=== PATIENT | female | born 1985 | race Caucasian/White ===

== ENCOUNTER 2023-06-01 10:02 | Outpatient (OUT) | payer OTHER, SELFPAY ==
[2023-06-01 11:06] LABS: Basophils Absolute Auto 0.1 10^3/uL (0.0-0.1); Basophils Percent Auto 0.8 % (0.2-2.0); Eosinophils Absolute Auto 0.3 10^3/uL (0.0-0.7); Eosinophils Percent Auto 4.3 % (0.9-7.0); Hematocrit 40.1 % (36.0-48.0); Hemoglobin 13.5 g/dL (12.0-16.0); Immature Granulocytes Abs Auto 0.01 10^3/uL (0.00-0.03); Immature Granulocytes Pct Auto 0.2 % (0.0-0.5); Lymphocytes Absolute Auto 1.6 10^3/uL (1.2-3.8); Lymphocytes Percent Auto 27.3 % (20.5-60.0); Mean Corpuscular HGB Conc 33.7 g/dL (29.9-35.2); Mean Corpuscular Volume 89.1 fL (81.0-99.0); Mean Platelet Volume 10.5 fL (9.5-13.5); Monocytes Absolute Auto 0.5 10^3/uL (0.3-0.8); Monocytes Percent Auto 7.8 % (1.7-12.0); Neutrophils Absolute Auto 3.6 10^3/uL (1.4-6.5); Neutrophils Percent Auto 59.6 % (43.0-75.0); Platelet Count 208 10^3/uL (150-450); Red Cell Distribution Width 12.5 % (11.0-15.0)
[2023-06-01 11:26] LABS: Bilirubin Urine NEGATIVE (NEGATIVE); Blood Urine SMALL (NEGATIVE); Clarity Urine CLEAR (CLEAR); Color Urine YELLOW (YELLOW); Glucose Urine UA NEGATIVE (NEGATIVE); Ketones Urine NEGATIVE (NEGATIVE); Leukocyte Esterase Urine NEGATIVE (NEGATIVE); Nitrite Urine NEGATIVE (NEGATIVE); Protein Urine NEGATIVE (NEG/TRACE); Specific Gravity Urine >=1.030 (1.005-1.025); Urobilinogen Urine 0.2 EU/dL (0.2-1.0)
[2023-06-01 11:35] LABS: Bacteria Urine NONE SEEN #/HPF (NONE SEEN); Crystals Seen? None Seen #/HPF (None Seen); Mucus Urine TRACE (NONE SEEN); Squamous Epithelial Cell Urine FEW #/LPF (NONE/RARE); WBC Urine NONE SEEN #/HPF (NONE SEEN)
[2023-06-01 11:36] LABS: Cast Seen? NONE SEEN #/LPF (NONE SEEN); Urine Culture Indicated NO
[2023-06-01 11:56] LABS: Alanine Aminotransferase 43 U/L (14-59); Albumin Globulin Ratio 1.1; Albumin Level 3.7 g/dL (3.4-5.0); Alkaline Phosphatase 72 U/L (46-116); Anion Gap 13.3; Aspartate Amino Transferase 20 U/L (15-37); BUN Creatinine Ratio 11.6; Bilirubin Total 0.3 mg/dL (0.2-1.0); Calcium 8.9 mg/dL (8.5-10.1); Carbon Dioxide 25.6 mmol/L (21.0-32.0); Chloride 105 mmol/L (98-107); Chol HDL Ratio 4.4; Cholesterol 167 mg/dL (<=200); Estimated GFR (African America >60 (>=60); Estimated GFR (Non-African Ame >60 (>=60); Globulin 3.3 g/dL; Glucose 104 mg/dL (74-106); HDL Cholesterol 38 mg/dL (40-60); Potassium 3.9 mmol/L (3.5-5.1); Sodium 140 mmol/L (136-145); Triglycerides 127 mg/dL (<=150); VLDL CHOLESTEROL 25.4 mg/dL
[2023-06-01 14:58] LABS: Estimated Average Glucose 100 mg/dL; Glycohemoglobin A1C 5.1 % (4.5-6.2)
== END 2023-06-01 10:03 | disposition home or self-care (01) ==
PROVIDERS: PCP Nurse Practitioner; Visit Provider Nurse Practitioner
DX: E55.9 Vitamin D deficiency, unspecified (principal); E66.01 Morbid (severe) obesity due to excess calories; Z68.41 Body mass index [BMI] 40.0-44.9, adult; Z72.0 Tobacco use
CPT/HCPCS: 36415; 80053; 80061; 81001; 82306; 83036; 85025

== ENCOUNTER 2023-12-04 09:43 | Outpatient (OUT) | payer OTHER, SELFPAY ==
[2023-12-04 10:25] LABS: Basophils Percent Auto 0.7 % (0.2-2.0); Eosinophils Absolute Auto 0.2 10^3/uL (0.0-0.7); Hemoglobin 13.4 g/dL (12.0-16.0); Immature Granulocytes Abs Auto 0.02 10^3/uL (0.00-0.03); Immature Granulocytes Pct Auto 0.3 % (0.0-0.5); Lymphocytes Absolute Auto 1.6 10^3/uL (1.2-3.8); Lymphocytes Percent Auto 26.1 % (20.5-60.0); Mean Corpuscular HGB Conc 33.5 g/dL (29.9-35.2); Mean Corpuscular Hemoglobin 29.8 pg (26.7-34.0); Mean Corpuscular Volume 89.1 fL (81.0-99.0); Mean Platelet Volume 10.4 fL (9.5-13.5); Monocytes Absolute Auto 0.4 10^3/uL (0.3-0.8); Monocytes Percent Auto 6.9 % (1.7-12.0); Neutrophils Absolute Auto 3.8 10^3/uL (1.4-6.5); Platelet Count 182 10^3/uL (150-450); Red Blood Count 4.49 10^6/uL (4.20-5.40); Red Cell Distribution Width 12.2 % (11.0-15.0); White Blood Count 6.1 10^3/uL (4.0-11.0)
[2023-12-04 10:47] LABS: Estimated Average Glucose 103 mg/dL; Glycohemoglobin A1C 5.2 % (4.5-6.2)
[2023-12-04 10:57] LABS: Anion Gap 13.7; Carbon Dioxide 25.9 mmol/L (21.0-32.0); Chloride 104 mmol/L (98-107); Potassium 3.6 mmol/L (3.5-5.1); Sodium 140 mmol/L (136-145)
[2023-12-04 10:58] LABS: Alanine Aminotransferase 65 U/L (14-59); Albumin Globulin Ratio 1.1; Albumin Level 3.6 g/dL (3.4-5.0); Alkaline Phosphatase 84 U/L (46-116); Aspartate Amino Transferase 29 U/L (15-37); BUN Creatinine Ratio 13.6; Bilirubin Total 0.8 mg/dL (0.2-1.0); Calcium 8.8 mg/dL (8.5-10.1); Cholesterol 201 mg/dL (<=200); Estimated GFR (African America >60 (>=60); Estimated GFR (Non-African Ame >60 (>=60); Globulin 3.4 g/dL; Glucose 113 mg/dL (74-106); Triglycerides 182 mg/dL (<=150); VLDL CHOLESTEROL 36.4 mg/dL
[2023-12-04 10:59] LABS: Chol HDL Ratio 4.6; HDL Cholesterol 44 mg/dL (40-60); TSH W/ REFLEX FT4 2.214 uIU/mL (0.358-3.740)
[2023-12-04 11:11] LABS: Bilirubin Urine NEGATIVE (NEGATIVE); Blood Urine NEGATIVE (NEGATIVE); Clarity Urine CLEAR (CLEAR); Color Urine YELLOW (YELLOW); Glucose Urine UA NEGATIVE (NEGATIVE); Ketones Urine NEGATIVE (NEGATIVE); Leukocyte Esterase Urine NEGATIVE (NEGATIVE); Nitrite Urine NEGATIVE (NEGATIVE); Protein Urine NEGATIVE (NEG/TRACE); Urobilinogen Urine 0.2 EU/dL (0.2-1.0); pH Urine 6.5 (5.0-9.0)
[2023-12-04 11:17] LABS: Urine Microscopic Indicated NO
[2023-12-04 11:20] LABS: Creatinine Urine Random 227.62 mg/dL (20.00-300.00); Microalbum Creatinine Ratio Ur 24.6 mg/g (0.0-29.9); Microalbumin Urine Random 5.6 mg/dL (<=30.0)
== END 2023-12-04 09:44 | disposition home or self-care (01) ==
LOC: LAB 09:45
PROVIDERS: PCP Nurse Practitioner; Visit Provider Nurse Practitioner
DX: K21.9 Gastro-esophageal reflux disease without esophagitis (principal); I10 Essential (primary) hypertension; F50.81 Binge eating disorder; E66.01 Morbid (severe) obesity due to excess calories; E55.9 Vitamin D deficiency, unspecified
CPT/HCPCS: 36415; 80053; 80061; 81003; 82043; 82306; 82570; 83036; 84443; 85025

== ENCOUNTER 2023-12-24 09:16 | Outpatient (OUT) | payer OTHER, SELFPAY ==
--- NOTE | 2023-12-24 09:00 | NM_ITS ---
Patient Name: BOO LIU MR#: [id number] : 1985 Exam Date: 12/24/2023 Ordering Doctor: ALICIA Hernandez CNP RADIOLOGY REPORT PROCEDURE: NM KOSTA PERF SPECT REST STR COMPARISON: None. INDICATIONS: CHEST PAIN TECHNIQUE: Exam Description: Stress/Rest two day protocol gated SPECT Rest Imagin.9 mCi Tc-99m Cardiolite IV on 12/24/2023 Stress Imaging 26.1 mCi Tc-99m Cardiolite IV on 12/30/2023 Exercise Protocol: Deuce Heart Rate (bpm): Rest: 83 Max: 164 PMHR: 89 Blood Pressure: Rest: 138/84 Max: 178/84 Exercise Time: Minutes: 5 Seconds: 02 Stage Reached: Stage: 2 Mets 7.0 Symptoms: Rest and peak stress ECG findings were pending and the exercise portion of the study was pending per attending physician Dr. Howe . For more details please see separate cardiac stress test report. FINDINGS: QUALITY OF STUDY: Good. PERFUSION DEFECT: None. LOCATION: N/A SIZE: N/A. SEVERITY: N/A. TYPE: N/A. WALL MOTION: Normal. LV SIZE: Normal. 68 mL. TID / TCD: None; 0.6 LVEF: Normal. Calculated EF 64%. SUMMARY: Myocardial perfusion imaging study is NORMAL. CONCLUSION: 1. No reversible ischemia 2. Pending exercise test Dictated by: Estrada Azar MD on 12/30/2023 at 13:33 Approved by: Estrada Azar MD on 12/30/2023 at 13:34
--- OUTSIDE RECORDS SUMMARY | 2023-12-24 09:35 | XMS_ITS | CCD ---
Author Name Unknown Address [address] [place] [address] Organization [facility] Care Team Providers Care Batch Mixer Name Role Phone Sam Collier Unavailable Unavailable NATE HERRON Attending Unavai lable [facility] Unavai lable ANTE HERRON Attending Unavai lable [facility] Unavai lable NATE HERRON Admitting Unavai lable NATE HERRON Attending Savannahvavanessa HERRON [facility] Primary Care LETICIA Aly Attending Unavaila ble GOPAL, [facility] Primary Care LETICIA Aly Admitting Unavaila LETICIA Auguste Attending Unavaila ble GOPAL, [facility] Primary Care Kota Cronin Primary Care Provider [phone] Kota Weaver Primary Care Provider [phone] [place]TUN[place]O URIOSTEGUI Referring Unavailable [facility] Care Unavailable MAYA BENDER Referring [facility] Unavailable HELM, ANDREA Referring [facility] Care Unavailable HELM, ANDREA Referring Unavailable [facility] Care Unavailable FORTUNATO URIOSTEGUI Admitting Unavailable FORTUNATO URIOSTEGUI Attending Unavailable [facility] Care Unavailable Annette Strickland Unavailable Linda Baires Unavailable Liliana Morfin Unavailable ALICIA ALAN Admitting Unavailable ALICIA ALAN LA[place] Attending Unavailable AICHHOLZ, CEREAL MAKER [place] Primary Care Unavailable AICHHOLZ, CEREAL MAKER [place] Consulting Unavailable AICHHOLZ, CEREAL MAKER [place] Admitting Unavailable AICHHOLZ, CEREAL MAKER [place] Attending Unavailable AICHHOLZ, CEREAL MAKER [place] Primary Care Unavailable AICHHOLZ, CEREAL MAKER [place] Consulting Unavailable AICHHOLZ, CEREAL MAKER [place] Admitting Unavailable AICHHOLZ, CEREAL MAKER [place] Attending Unavailable AICHHOLZ, CEREAL MAKER [place] Primary Care Unavailable AICHHOLZ, CEREAL MAKER [place] Consulting Unavailable AICHHOLZ, CEREAL MAKER [place] Primary Care Unavailable NATALI, TAI Admitting Unavailable NATALI, TAI Attending Unavailable NATALI, TAI Consulting Unavailable AICHHOLZ, CEREAL MAKER [place] Admitting Unavailable AICHHOLZ, CEREAL MAKER [place] Attending Unavailable AICHHOLZ, CEREAL MAKER [place] Primary Care Unavailable DR GOOD HENSON V Consulting Unavailable AICHHOLZ, CEREAL MAKER [place] Consulting Unavailable AICHHOLZ, CEREAL MAKER [place] Admitting Unavailable AICHHOLZ, CEREAL MAKER [place] Attending Unavailable AICHHOLZ, CEREAL MAKER [place] Primary Care Unavailable AICHHOLZ, CEREAL MAKER [place] Consulting Unavailable AICHHOLZ, CEREAL MAKER [place] Admitting Unavailable AICHHOLZ, CEREAL MAKER [place] Attending Unavailable AICHHOLZ, CEREAL MAKER [place] Primary Care Unavailable AICHHOLZ, CEREAL MAKER [place] Consulting Unavailable AICHHOLZ, CEREAL MAKER [place] Admitting Unavailable AICHHOLZ, CEREAL MAKER [place] Attending Unavailable AICHHOLZ, CEREAL MAKER [place] Primary Care Unavailable AICHHOLZ, CEREAL MAKER [place] Consulting Unavailable AICHHOLZ, CEREAL MAKER [place] Admitting Unavailable AICHHOLZ, CEREAL MAKER [place] Attending Unavailable AICHHOLZ, CEREAL MAKER [place] Primary Care Unavailable AICHHOLZ, CEREAL MAKER [place] Consulting Unavailable AICHHOLZ, LAKEISHA Attending Unavailable AICHHOLZ, LAKEISHA Attending Unavailable Unavailable Unavailable Unavailable Allergies Allergy Classification Reported Allergen(s) Allergy Type Date of Onset Reaction(s) Facility (10 sources) Amoxicillin Drug Allergy 4 Rash, Nausea And Vomiting [place], [place] (10 sources) Latex Propensity to adverse reactions to drug 0 Rash [place], [place] (1 source) Amoxicillin Drug Allergy [facility] (1 source) Latex Drug allergy (disorder) [facility] Medications Current Medications Medication Drug Class(es) Dates Sig (Normalized) Sig (Original) ARIPiprazole 5 mg oral tablet (1 source) Atypical Antipsychotic take 1 tablet by mouth every twenty-four hours Abilify 5 MG 1 tablet Orally Once a day Active calcium chloride 0.0014 meq/ml / potassium chloride 0.004 meq/ml / sodium chloride 0.103 meq/ml / sodium lactate 0.028 meq/ml injectable solution (1 source) Start: 09-28-2020 lactated ringers infusion cefuroxime 500 mg oral tablet (1 source) Cephalosporin Antibacterial Start: 09-29-2021 take 1 tablet by mouth every twelve hours Cefuroxime Axetil 500 MG 1 tablet Orally Twice a day for 10 day(s) Sep, Active cephalexin 500 mg oral capsule (1 source) Cephalosporin Antibacterial Start: 12-04-2022 take 1 capsule by mouth every eight hours Cephalexin 500 MG 1 capsule Orally three times a day for 10 day(s) Nov, Active cyclobenzaprine hydrochloride 10 mg oral tablet (1 source) Muscle Relaxant Start: 03-16-2022 take 1 tablet by mouth every eight hours Cyclobenzaprine HCl 10 MG 1 tablet as needed Orally Three times a day for 10 days Mar, Active DULoxetine 60 mg delayed release oral capsule (10 sources) Serotonin and Norepinephrine Reuptake Inhibitor take 1 capsule by mouth every twelve hours DULoxetine HCl 60 MG 1 Tablet orally bid Active take 1 capsule by mouth once teagan ly DULoxetine (CYMBALTA) 60 MG extended release capsule Take 60 mg by mouth daily 0 Active famotidine 20 mg oral tablet (5 sources) Histamine-2 Receptor Antagonist Start: 01-24-2020 take 1 tablet by mouth twice daily famotidine (PEPCID) 20 MG tablet take 1 tablet by mouth twice a day 0 01/24/2020 Active hydroCHLOROthiazide 25 mg oral tablet (10 sources) Thiazide Diuretic Start: 03-13-2020 take 1 tablet by mouth once daily hydroCHLOROthiazide (HYDRODIURIL) 25 MG tablet take 1 tablet by mouth once daily 0 03/13/2020 Active Lisdexamfetamine (5 sources) Central Nervous System Stimulant Vyvanse Active Losartan (2 sources) Angiotensin 2 Receptor Sourav Losartan Potassium Active methylPREDNISolone 4 mg oral tablet (1 source) Corticosteroid Start: 03-16-2022 methylPREDNISolone 4 MG as directed Orally Once a day for 6 days Mar, Active pantoprazole 40 mg delayed release oral tablet (2 sources) Proton Pump Inhibitor Start: 09-28-2020 take 1 tablet by mouth once daily before breakfast pantoprazole (PROTONIX) 40 MG tablet Take 1 tablet by mouth every morning (before breakfast) 90 tablet 1 09/28/2020 Active varenicline 0.5 mg oral tablet (2 sources) Partial Cholinergic Nicotinic Agonist take 1 tablet by mouth twice daily varenicline (CHANTIX) 0.5 MG tablet Take 0.5 mg by mouth 2 times daily 0 Active Completed/Discontinued Medications Medication Drug Class(es) Dates Sig (Normalized) Sig (Original) hydrocortisone 10 mg/ml / neomycin 3.5 mg/ml / polymyxin b 45499 unt/ml otic suspension (4 sources) Aminoglycoside Antibacterial, Polymyxin-class Antibacterial, Corticosteroid Start: 08-06-2022 Neomycin-Polymyx in-HC 3.5-69369-0 3 drops both ears Three times a day for 7 days Jul, Not-Taking Start: 09-15-2021 Neomycin-Polym yxin-HC 3.5-93862-0 4 drops into affected ear Otic Three times a day for 7 day(s) Sep, Not-Taking Ketorolac (3 sources) Nonsteroidal Anti-inflammatory Drug, Cyclooxygenase Inhibitor Start: 02-10-2018 Toradol per 15 mg February, 30 mg naproxen 500 mg oral tablet (1 source) Nonsteroidal Anti-inflammatory Drug Start: 08-07-2020 End: 09-25-2020 take 1 tablet by mouth twice daily for headache naproxen (NAPROSYN) 500 MG tablet take 1 tablet by mouth TWICE A DAY IF NEEDED FOR HEADACHE, NO MOR... (REFER TO PRESCRIPTION NOTES). 0 08/07/2020 09/25/2020 Discontinued (Therapy completed) Potassium (2 sources) Potassium Not-Taking Potassium Active Triamcinolone (3 sources) Corticosteroid Start: 02-10-2018 KENALOG - 10 m g February, 40 mg Problems Active Problems Problem Classification Problem Date Documented Date Episodic/Chronic Allergic reactions (2 sources) Latex allergy status; Translations: [Allergy status to penicillin] Onset: 9 Episodic Anxiety disorders (9 sources) Mixed anxiety and depressive disorder; Translations: [Depression with anxiety] Onset: 0 04-17-2020 Chronic Coronary atherosclerosis and other heart disease (2 sources) Other forms of angina pectoris; Translations: [Old myocardial infarction] Onset: 9 Chronic Disorders of lipid metabolism (1 source) Hyperlipidemia, unspecified Onset: 9 Chronic Esophageal disorders (7 sources) Gastroesophageal reflux disease without esophagitis; Translations: [Gastroesophageal reflux disease without esophagitis] Onset: 0 04-17-2020 Chronic Essential hypertension (13 sources) Essential (primary) hypertension; Translations: [Essential hypertension] Onset: 9 04-17-2020 Chronic Fluid and electrolyte disorders (4 sources) Hypokalemia; Translations: [HYPOKALEMIA] Onset: 3 Episodic Genitourinary symptoms and ill-defined conditions (2 sources) Female stress incontinence; Translations: [Incontinence, stress - Female] Chronic Nonspecific chest pain (3 sources) Chest pain, unspecified; Translations: [Chest pain, unspecified] Onset: 9 Episodic Nutritional deficiencies (1 source) Vitamin D deficiency, unspecified Onset: 8 Chronic Osteoarthritis (7 sources) Arthritis; Translations: [Arthritis] Onset: 0 04-17-2020 Chronic Other aftercare (1 source) penitentiary (current) use of aspirin Onset: 9 Episodic Other ear and sense organ disorders (1 source) Unspecified acute noninfective otitis externa, bilateral Episodic Other non-traumatic joint disorders (3 sources) Pain in right knee; Translations: [Right knee pain, unspecified chronicity] Episodic Other nutritional; endocrine; and metabolic disorders (1 source) Body mass index (BMI) 40.0-44.9, adult Onset: 9 Chronic Other nutritional; endocrine; and metabolic disorders (6 sources) Body mass index 40+ - severely obese; Translations: [Body mass index (BMI) 45.0-49.9, adult] Chronic Other nutritional; endocrine; and metabolic disorders (7 sources) Morbid obesity; Translations: [Obesity, Class III, BMI 40-49.9 (morbid obesity)] Onset: 0 04-17-2020 Chronic Other nutritional; endocrine; and metabolic disorders (2 sources) Obesity; Translations: [Obesity] Chronic Other screening for suspected conditions (not mental disorders or infectious disease) (3 sources) Abnormal electrocardiogram [ECG] [EKG]; Translations: [Abnormal electrocardiogram [ECG] [EKG]] Onset: 9 Episodic Other upper respiratory infections (2 sources) Acute pharyngitis, unspecified; Translations: [Streptococcal pharyngitis] Episodic Residual codes; unclassified (8 sources) Obstructive sleep apnea syndrome; Translations: [QUITA (obstructive sleep apnea)] Onset: 0 04-17-2020 Chronic Substance-related disorders (2 sources) Nicotine dependence, unspecified, uncomplicated; Translations: [Nicotine dependence, cigarettes, uncomplicated] Onset: 9 Chronic Thyroid disorders (5 sources) Nontoxic goiter, unspecified; Translations: [NONTOXIC GOITER UNSPECIFIED] Onset: 2 Chronic Unclassified (1 source) Family hx of ischem heart dis and oth dis of the circ sys Onset: 9 Unclassified (3 sources) Encntr for general adult medical exam w/o abnormal findings; Translations: [Encntr for general adult medical exam w/o abnormal findings] Onset: 8 Unclassified (1 source) Morbid (severe) obesity due to excess calories Onset: 9 Unclassified (2 sources) Patient encounter status; Translations: [Preop testing] Unclassified (2 sources) History of clinical finding in subject; Translations: [History of nicotine use] Onset: 0 09-19-2020 Past or Other Problems Problem Classification Problem Date Documented Da te Episodic/Chronic Cardiac dysrhythmias (4 sources) Palpitations; Translations: [PALPITATIONS] Onset: 07-18-2022 Episodic Diabetes mellitus without complication (1 source) Other abnormal glucose; Translations: [OTHER ABNORMAL GLUCOSE] Onset: 04-11-2022 Episodic Immunizations and screening for infectious disease (1 source) Contact with and (suspected) exposure to other viral communicable diseases Onset: 09-29-2021 Resolved: 09-29-2021 Episodic Other connective tissue disease (7 sources) Fibromyalgia; Translations: [Fibromyalgia] Onset: 04-18-2020 04-18-2020 Episodic Other connective tissue disease (1 source) Fibromyalgia; Translations: [FIBROMYALGIA] Onset: 03-17-2022 Episodic Other ear and sense organ disorders (1 source) Unspecified acute noninfective otitis externa, right ear Onset: 09-15-2021 Resolved: 09-15-2021 Episodic Other non-traumatic joint disorders (2 sources) Joint pain; Translations: [Joint pain, other specified sites] Episodic Other non-traumatic joint disorders (4 sources) Pain in right shoulder; Translations: [PAIN IN RIGHT SHOULDER] Onset: 03-15-2022 Resolved: 03-16-2022 Episodic Otitis media and related conditions (1 source) Otitis media, unspecified, right ear Onset: 09-29-2021 Resolved: 09-29-2021 Episodic Residual codes; unclassified (2 sources) Tobacco user; Translations: [Tobacco use disorder, current] Episodic Residual codes; unclassified (6 sources) Nicotine user; Translations: [Current nicotine use] Onset: 04-18-2020 Resolved: 09-19-2020 04-18-2020 Spondylosis; intervertebral disc disorders; other back problems (14 sources) Cervicalgia; Translations: [Sciatica] Onset: 05-03-2018 Episodic Results Test Name Value Interpretation Reference Range Facility XR FOOT RT MIN 3 VIEWSon XR FOOT RT MIN 3 VIEWS EXAMINATION: XR FOOT RT MIN 3 VIEWS, , 01/22/2023 11:16 AM EDT INDICATION: Pain in right foot HISTORY: Ordering Provider Reason for Exam: Technologist Note: Additional: COMPARISON: None. TECHNIQUE: Right foot x-ray: 3 view(s). FINDINGS: There has been an apparent previous hallux valgus procedure with partial resection of the distal medial first metatarsal. Other bony structures are intact. An accessory navicular is noted. There is narrowing at the first MP joint. Other articulations are satisfactorily maintained. A small plantar calcaneal enthesophyte is noted. Forefoot soft tissue swelling. IMPRESSION: Postoperative changes at the distal first metatarsal. Early degenerative changes at the first MP joint. Small plantar calcaneal enthesophyte. Electronically authenticated by: Tiff PHILLIPS Date: 2023-01-24 01:10 Normal [facility] US THYROIDon 12-18-2022 US THYROID EXAMINATION: US THYROID HISTORY: Simple goiter COMPARISON: No relevant comparison available. TECHNIQUE: Sonographic images of the thyroid gland were obtained. FINDINGS: The right thyroid lobe is normal in size, contour and homogeneous echotexture measuring 4.7 x 1.8 x 2.1 cm. No focal mass The thyroid isthmus measures 5 mm. No focal nodule. The left thyroid lobe is normal in size, contour and homogeneous echotexture measuring 4.0 x 1.5 to 1.2 cm. No focal mass IMPRESSION: Normal exam Electronically authenticated by: GOOD HENSON Date: 2022-12-18 15:15 Normal [facility] Quick Strepon 12-04-2022 S. pyogenes Org specific cx Ql (Throat) Positive [facility] [employer] Other Quick Strep [facility] [employer] Other PROF CHEM 8 (BAS METB)on Anion gap [Moles/Vol] 13.1 mmol/L Normal [facility] Comment on above: Performed By: #### B MP #### [facility] [address] [place] [address] Dr. Claudia Myrick Calcium [Mass/Vol] 9.3 mg/dL Normal 8.5-10.1 [facility] Comment on above: Performed By: #### B MP #### [facility] [address] [place] [address] Dr. Claudia Myrick Chloride [Moles/Vol] 102 mmol/L Normal 98-107 [facility] Comment on above: Performed By: #### B MP #### [facility] [address] [place] [address] Dr. Claudia Myrick CO2 [Moles/Vol] 25.4 mmol/L Normal 21.0-32.0 [facility] Comment on above: Performed By: #### B MP #### [facility] [address] [place] [address] Dr. Claudia Myrick Creatinine [Mass/Vol] 0.75 mg/dL Normal 0.55-1.02 [facility] Comment on above: Performed By: #### B MP #### [facility] [address] [place] [address] Dr. Claudia Myrick EGFR-AF SRI LANKAN >60 Normal >=60 [facility] Comment on above: Performed By: #### B MP #### [facility] [address] [place] [address] Dr. Claudia Myrick EGFR-NON AF SRI LANKAN >60 Normal >=60 [facility] Comment on above: Performed By: #### B MP #### [facility] [address] [address] [address] Claudia Myrick Glucose [Mass/Vol] 90 mg/dL Normal 74-106 [facility] Comment on above: Performed By: #### B MP #### [facility] [address] [address] [address] Claudia Myrick Potassium [Moles/Vol] 4.5 mmol/L Normal 3.5-5.1 [facility] Comment on above: Performed By: #### B MP #### [facility] [address] [address] [address] Claudia Myrick Sodium [Moles/Vol] 136 mmol/L Normal 136-145 [facility] Comment on above: Performed By: #### B MP #### [facility] [address] [address] [address] Claudia Myrick Urea nitrogen [Mass/Vol] 15.0 mg/dL Normal 7.0-18.0 [facility] Comment on above: Performed By: #### B MP #### [facility] [address] [address] [address] Claudia Myrick Urea nitrogen/Creatinine [Mass ratio] 20.0 mg/mg Normal [facility] Comment on above: Performed By: #### B MP #### [facility] [address] [address] [address] Claudia Myrick PROF CHEM 8 (BAS METB)on Anion gap [Moles/Vol] 14.6 mmol/L Normal [facility] Comment on above: Performed By: #### B MP #### [facility] [id number] Claudia Myrick Calcium [Mass/Vol] 8.7 mg/dL Normal 8.5-10.1 [facility] Comment on above: Performed By: #### B MP #### [facility] [address] [address] [address] Claudia Myrick Chloride [Moles/Vol] 104 mmol/L Normal 98-107 [facility] Comment on above: Performed By: #### B MP #### [facility] [address] [address] [address] Claudia Myrick CO2 [Moles/Vol] 23.7 mmol/L Normal 21.0-32.0 [facility] Comment on above: Performed By: #### B MP #### [facility] [address] [address] [address] Claudia Myrick Creatinine [Mass/Vol] 1.07 mg/dL Critically high 0.55-1.02 [facility] Comment on above: Performed By: #### B MP #### [facility] [address] [address] [address] Claudia Myrick EGFR-AF SRI LANKAN >60 Normal >=60 [facility] Comment on above: Performed By: #### B MP #### [facility] [address] [address] [address] Claudia Myrick EGFR-NON AF SRI LANKAN 58 mL/min/1.73m2 Critically low >=60 [facility] Comment on above: Performed By: #### B MP #### [facility] [address] [address] [address] Claudia Myrick Glucose [Mass/Vol] 129 mg/dL Critically high 74-106 [facility] Comment on above: Performed By: #### B MP #### [facility] [address] [address] [address] Claudia Myrick Potassium [Moles/Vol] 3.2 mmol/L Critically low 3.5-5.1 [facility] Comment on above: Performed By: #### B MP #### [facility] [address] [address] [address] Claudia Myrick Sodium [Moles/Vol] 140 mmol/L Normal 136-145 [facility] Comment on above: Performed By: #### B MP #### [facility] [address] [address] [address] Claudia Myrick Urea nitrogen [Mass/Vol] 9.0 mg/dL Normal 7.0-18.0 [facility] Comment on above: Performed By: #### B MP #### [facility] [address] [address] [address] Claudia Myrick Urea nitrogen/Creatinine [Mass ratio] 8.4 mg/mg Normal [facility] Comment on above: Performed By: #### B MP #### [facility] [address] [address] [address] Claudia Myrick PROF CHEM 8 (BAS METB)on Anion gap [Moles/Vol] 11.1 mmol/L Normal [facility] Comment on above: Performed By: #### B MP #### [facility] [address] [address] [address] Claudia Myrick Calcium [Mass/Vol] 9.5 mg/dL Normal 8.5-10.1 [facility] Comment on above: Performed By: #### B MP #### [facility] [address] [address] [address] Claudia Myrick Chloride [Moles/Vol] 104 mmol/L Normal 98-107 [facility] Comment on above: Performed By: #### B MP #### [facility] [address] [address] [address] Claudia Myrick CO2 [Moles/Vol] 29.9 mmol/L Normal 21.0-32.0 [facility] Comment on above: Performed By: #### B MP #### [facility] [address] [address] [address] Claudia Myrick Creatinine [Mass/Vol] 1.05 mg/dL Critically high 0.55-1.02 [facility] Comment on above: Performed By: #### B MP #### [facility] [address] [address] [address] Claudia Myrick EGFR-AF SRI LANKAN >60 Normal >=60 [facility] Comment on above: Performed By: #### B MP #### [facility] [address] [address] [address] Claudia Myrick EGFR-NON AF SRI LANKAN =60 Normal >=60 [facility] Comment on above: Performed By: #### B MP #### [facility] [address] [address] [address] Claudia Myrick Glucose [Mass/Vol] 122 mg/dL Critically high 74-106 [facility] Comment on above: Performed By: #### B MP #### [facility] [address] [address] [address] Claudia Myrick Potassium [Moles/Vol] 3.0 mmol/L Critically low 3.5-5.1 [facility] Comment on above: Performed By: #### B MP #### [facility] [address] [address] [address] Claudia Myrick Sodium [Moles/Vol] 143 mmol/L Normal 136-145 [facility] Comment on above: Performed By: #### B MP #### [facility] [address] [place] [address] Dr. Claudia Myrick Urea nitrogen [Mass/Vol] 11.0 mg/dL Normal 7.0-18.0 [facility] Comment on above: Performed By: #### B MP #### [facility] [address] [address] [address] Claudia Myrick Urea nitrogen/Creatinine [Mass ratio] 10.5 mg/mg Normal [facility] Comment on above: Performed By: #### B MP #### [facility] [address] [place] [address] Dr. Claudia Myrick POTASSIUMon 04-23-2022 Potassium [Moles/Vol] 3.2 mmol/L Critically low 3.5-5.1 [facility] Comment on above: Performed By: #### K #### [facility] [address] [place] [address] Dr. Claudia Myrick THYROGLOBULIN ABon Thyroglobulin Antibody <1.0 Normal 0.0-0.9 [facility] Comment on above: Result Comment: Thyr oglobulin Antibody measured by [employer] Methodology Performed By: #### T HYGAB #### [facility] [address] [address] [address] Claudia Myrick THYROID PEROXIDASE ABon 06-2 Thyroid Peroxidase (TPO) Ab <8 Normal 0-34 [facility] Comment on above: Performed By: #### T POAB #### [facility] [address] [place] [address] Dr. Claudia Myrick CBC AUTO DIFFon 04-08-2022 BASO # 0.1 103/ul Normal 0.0-0.1 [facility] Comment on above: Performed By: #### C BC #### [facility] [address] [place] [address] Dr. Claudia Myrick Basophils/100 WBC (Bld) 0.6 % Normal 0.2-2.0 [facility] Comment on above: Performed By: #### C BC #### [facility] [address] [place] [address] Dr. Claudia Myrick EO # 0.3 103/ul Normal 0.0-0.7 [facility] Comment on above: Performed By: #### C BC #### [facility] [address] [place] [address] Dr. Claudia Myrick Eosinophils/100 WBC (Bld) 4.2 % Normal 0.9-7.0 [facility] Comment on above: Performed By: #### C BC #### [facility] [address] [place] [address] Dr. Claudia Myrick Erythrocyte distribution width (RBC) [Ratio] 12.8 % Normal 11.0-15.0 [facility] Comment on above: Performed By: #### C BC #### [facility] [address] [place] [address] Dr. Claudia Myrick Hematocrit (Bld) [Volume fraction] 42.0 % Normal 36.0-48.0 [facility] Comment on above: Performed By: #### C BC #### [facility] [address] [place] [address] Dr. Claudia Myrick Hemoglobin (Bld) [Mass/Vol] 14.1 g/dL Normal 12.0-16.0 [facility] Comment on above: Performed By: #### C BC #### [facility] [address] [place] [address] Dr. Claudia Myrick IG # 0.05 10e3/ul Critically high 0.00-0.03 [facility] Comment on above: Performed By: #### C BC #### [facility] [address] [place] [address] Dr. Claudia Myrick IG % 0.6 % Critically high 0.0-0.5 [facility] Comment on above: Performed By: #### C BC #### [facility] [address] [place] [address] Dr. Claudia Myrick LYMPH # 1.7 103/ul Normal 1.2-3.8 [facility] Comment on above: Performed By: #### C BC #### [facility] [address] [place] [address] Dr. Claudia Myrick Lymphocytes/100 WBC (Bld) 21.1 % Normal 20.5-60.0 [facility] Comment on above: Performed By: #### C BC #### [facility] [address] [place] [address] Dr. Claudia Myrick MANUAL DIFF REQ NO Normal [facility] Comment on above: Performed By: #### C BC #### [facility] [address] [place] [address] Dr. Claudia Myrick MCH (RBC) [Entitic mass] 30.6 pg Normal 26.7-34.0 [facility] Comment on above: Performed By: #### C BC #### [facility] [address] [place] [address] Dr. Claudia Myrick MCHC (RBC) [Mass/Vol] 33.6 g/dL Normal 29.9-35.2 [facility] Comment on above: Performed By: #### C BC #### [facility] [address] [place] [address] Dr. Claudia Myrick MCV (RBC) [Entitic vol] 91.1 fL Normal 81.0-99.0 [facility] Comment on above: Performed By: #### C BC #### [facility] [address] [place] [address] Dr. Claudia Myrick MONO # 0.6 103/ul Normal 0.3-0.8 [facility] Comment on above: Performed By: #### C BC #### [facility] [address] [place] [address] Dr. Claudia Myrick Monocytes/100 WBC (Bld) 7.1 % Normal 1.7-12.0 [facility] Comment on above: Performed By: #### C BC #### [facility] [address] [place] [address] Dr. Claudia Myrick NEUT # 5.4 103/ul Normal 1.4-6.5 [facility] Comment on above: Performed By: #### C BC #### [facility] [address] [place] [address] Dr. Claudia Myrick Neutrophils/100 WBC (Bld) 66.4 % Normal 43.0-75.0 [facility] Comment on above: Performed By: #### C BC #### [facility] [address] [place] [address] Dr. Claudia Myrick Platelet mean volume (Bld) [Entitic vol] 11.1 fL Normal 9.5-13.5 [facility] Comment on above: Performed By: #### C BC #### [facility] [address] [place] [address] Dr. Claudia Myrick PLT 213 103/ul Normal 150-450 [facility] Comment on above: Performed By: #### C BC #### [facility] [address] [place] [address] Dr. Claudia Myrick RBC 4.61 106/ul Normal 4.20-5.40 [facility] Comment on above: Performed By: #### C BC #### [facility] [address] [place] [address] Dr. Claudia Myrick WBC 8.2 103/ul Normal 4.0-11.0 [facility] Comment on above: Performed By: #### C BC #### [facility] [address] [place] [address] Dr. Claudia Myrick FREE T3on 04-08-2022 FREE T3 3.34 pg/mlL Normal 2.18-3.98 [facility] Comment on above: Performed By: #### L IPID, FT3, TSH, CMP ####[facility] [address] [place] [id number]. Claudai Myrick FREE T4on 04-08-2022 Free T4 [Mass/Vol] 0.96 ng/dL Normal 0.76-1.46 [facility] Comment on above: Performed By: #### F T4 ####[facility] [address] [place] [id number] Myrick GLYCOHEMOGLOBIN A1Con 2021 ADA RECOMMENDATION SEE BELOW Normal [facility] Comment on above: Result Comment: ADA RECOMMENDED LIMIT 4.0 - 6.0 ADA THERAPEUTIC TARGET < 7.0 ACTION SUGGESTED > 7.0 Performed By: #### A 1C #### [facility] [address] [address] [address] Claudia Myrick Glucose [Mass/Vol] 108 mg/dL Normal [facility] Comment on above: Performed By: #### A 1C #### [facility] [address] [address] [address] Claudia Myrick HbA1c (Bld) [Mass fraction] 5.4 % Normal 4.5-6.2 [facility] Comment on above: Performed By: #### A 1C #### [facility] [address] [address] [address] Claudia Myrick LIPID PROFILEon 04-08-2022 CHOL-HDL RATIO NORM SEE BELOW Normal [facility] Comment on above: Result Comment: 3.3 - 4.4 LOW RISK 4.4 - 7.1 AVERAGE RISK 7.1 - 11.0 MODERATE RISK >11.0 HIGH RISK Performed By: #### L IPID, FT3, TSH, CMP ####[facility] [address] [place] [id number]. Claudia Myrick Cholesterol [Mass/Vol] 213 mg/dL Critically high <=200 [facility] Comment on above: Performed By: #### L IPID, FT3, TSH, CMP ####[facility] [address] [place] [id number]. Yilan Myrick Cholesterol in HDL [Mass/Vol] 34 mg/dL Critically low 40-60 [facility] Comment on above: Performed By: #### L IPID, FT3, TSH, CMP ####[facility] [address] [place] [address]Dr. Sandiobey Myrick Cholesterol in LDL [Mass/Vol] 135.6 mg/dL Normal [facility] Comment on above: Performed By: #### L IPID, FT3, TSH, CMP ####[facility] [address] [place] [address]Dr. Claudia Myrick Cholesterol.total/C holesterol in HDL [Mass ratio] 6.3 {ratio} Normal [facility] Comment on above: Performed By: #### L IPID, FT3, TSH, CMP ####[facility] [address] [place] [address]Dr. Claudia Myrick HDL NORMAL > or = 60 mg/dl - LO W CARDIOVASCULAR RISK <40 mg/dl - HIGH CARDIOVASCULAR RISK Normal [facility] Comment on above: Performed By: #### L IPID, FT3, TSH, CMP ####[facility] [address] [place] [address]Dr. Claudia Myrick LDL CALC NORMAL SEE BELOW Normal [facility] Comment on above: Result Comment: <100 mg/dl OPTIMAL 100 - 129 mg/dl NEAR OR ABOVE OPTIMAL 130 - 159 mg/dl BORDERLINE HIGH 160 - 189 mg/dl HIGH >190 mg/dl VERY HIGH Performed By: #### L IPID, FT3, TSH, CMP ####[facility] [address] [place] [address]Dr. Claudia Myrick Triglyceride [Mass/Vol] 217 mg/dL Critically high <=150 [facility] Comment on above: Performed By: #### L IPID, FT3, TSH, CMP ####[facility] [address] [place] [address]Dr. Claudia Myrick VLDL CALC 43.4 mg/dL Normal [facility] Comment on above: Performed By: #### L IPID, FT3, TSH, CMP ####[facility] [address] [place] [address]Dr. Claudia Myrick PROF 14(COMP METB)on 022 Albumin [Mass/Vol] 3.6 g/dL Normal 3.4-5.0 [facility] Comment on above: Performed By: #### L IPID, FT3, TSH, CMP ####[facility] [address] [place] [address]Dr. Claudia Myrick Albumin/Globulin [Mass ratio] 1.1 {ratio} Normal [facility] Comment on above: Performed By: #### L IPID, FT3, TSH, CMP ####[facility] [address] [place] [address]Dr. Claudia Myrick ALP [Catalytic activity/Vol] 75 U/L Normal 46-116 [facility] Comment on above: Performed By: #### L IPID, FT3, TSH, CMP ####[facility] [address] [place], [place] [address]Dr. Claudia Myrick ALT [Catalytic activity/Vol] 60 U/L Critically high 14-59 [facility] Comment on above: Performed By: #### L IPID, FT3, TSH, CMP ####[facility] [address] [place], [place] [address]Dr. Claudia Myrick Anion gap [Moles/Vol] 12.1 mmol/L Normal [facility] Comment on above: Performed By: #### L IPID, FT3, TSH, CMP ####[facility] [address] [place] [address]Dr. Claudia Myrick AST [Catalytic activity/Vol] 29 U/L Normal 15-37 [facility] Comment on above: Performed By: #### L IPID, FT3, TSH, CMP ####[facility] [address] [place], [place] [address]Dr. Claudia Myrick Bilirubin [Mass/Vol] 0.6 mg/dL Normal 0.2-1.0 [facility] Comment on above: Performed By: #### L IPID, FT3, TSH, CMP ####[facility] [address] [place], [place] [address]Dr. Claudia Myrick Calcium [Mass/Vol] 8.9 mg/dL Normal 8.5-10.1 [facility] Comment on above: Performed By: #### L IPID, FT3, TSH, CMP ####[facility] [address] [place] [address]Dr. Claudia Myrick Chloride [Moles/Vol] 103 mmol/L Normal 98-107 [facility] Comment on above: Performed By: #### L IPID, FT3, TSH, CMP ####[facility] [address] [place] [address]Dr. Claudia Myrick CO2 [Moles/Vol] 27.8 mmol/L Normal 21.0-32.0 [facility] Comment on above: Performed By: #### L IPID, FT3, TSH, CMP ####[facility] [address] [place], [place] [address]Dr. Claudia Myrick Creatinine [Mass/Vol] 0.86 mg/dL Normal 0.55-1.02 [facility] Comment on above: Performed By: #### L IPID, FT3, TSH, CMP ####[facility] [address] [place], [place] [address]Dr. Claudia Myrick EGFR-AF SRI LANKAN >60 Normal >=60 [facility] Comment on above: Performed By: #### L IPID, FT3, TSH, CMP ####[facility] [address] [place], [place] [address]Dr. Claudia Myrick EGFR-NON AF SRI LANKAN >60 Normal >=60 [facility] Comment on above: Performed By: #### L IPID, FT3, TSH, CMP ####[facility] [address] [place], [place] [address]Dr. Claudia Myrick Globulin (S) [Mass/Vol] 3.2 g/dL Normal [facility] Comment on above: Performed By: #### L IPID, FT3, TSH, CMP ####[facility] [address] [place] [address]Dr. Claudia Myrick Glucose [Mass/Vol] 114 mg/dL Critically high 74-106 [facility] Comment on above: Performed By: #### L IPID, FT3, TSH, CMP ####[facility] [address] [place] [address]Dr. Claudia Myrick Potassium [Moles/Vol] 2.8 mmol/L Critically low 3.5-5.1 [facility] Comment on above: Result Comment: TEST REPEATED CRITICAL VALUE VERIFIED Performed By: #### L IPID, FT3, TSH, CMP ####[facility] [address] [place] [address]Dr. Claudia Myrick Protein [Mass/Vol] 6.8 g/dL Normal 6.4-8.2 [facility] Comment on above: Performed By: #### L IPID, FT3, TSH, CMP ####[facility] [address] [place] [address]Dr. Claudia Myrick Sodium [Moles/Vol] 138 mmol/L Normal 136-145 [facility] Comment on above: Performed By: #### L IPID, FT3, TSH, CMP ####[facility] [address] [place] [address]Dr. Claudia Myrick Urea nitrogen [Mass/Vol] 11.0 mg/dL Normal 7.0-18.0 [facility] Comment on above: Performed By: #### L IPID, FT3, TSH, CMP ####[facility] [address] [place] [address]Dr. Claudia Myrick Urea nitrogen/Creatinine [Mass ratio] 12.8 mg/mg Normal [facility] Comment on above: Performed By: #### L IPID, FT3, TSH, CMP ####[facility] [address] [place] [address]DrRobert Myrick TSHon 04-08-2022 TSH 1.561 uIU/mL Normal 0.358-3.740 [facility] Comment on above: Performed By: #### L IPID, FT3, TSH, CMP #### [facility] [address] [address] [address] Claudia Myrick UA RANDOM W/MICROSCOPICon BACTERIA TRACE Abnormal NONE SEEN [facility] Comment on above: Performed By: #### U AMIC ####[facility] [address] [place] [address]Dr. Claudia Myrick Bilirubin Ql (U) Negative Normal NEGATIVE [facility] Comment on above: Performed By: #### U AMIC ####[facility] [address] [place], [place] [address]Dr. Sandiobey Myrick CAST NONE SEEN Normal NONE SEEN [facility] Comment on above: Performed By: #### U AMIC ####[facility] [address] [place], [place] [address]Dr. Claudia Myrick Clarity (U) CLEAR Normal CLEAR [facility] Comment on above: Performed By: #### U AMIC ####[facility] [address] [place], [place] [address]Dr. Claudia Myrick Color (U) YELLOW Normal YELLOW [facility] Comment on above: Performed By: #### U AMIC ####[facility] [address] [place], [place] [address]Dr. Sandiobey Ramez Crystals LM Nom (Urine sed) NONE SEEN Normal NONE SEEN [facility] Comment on above: Performed By: #### U AMIC ####[facility] [address] [place], [place] [address]Dr. Claudia Myrick Epithelial cells LM Ql (Urine sed) FEW Abnormal NONE SEEN /RARE [facility] Comment on above: Performed By: #### U AMIC ####[facility] [address] [place], [place] [address]Dr. Claudia Myrick Glucose Ql (U) Negative Normal NEGATIVE [facility] Comment on above: Performed By: #### U AMIC ####[facility] [address] [place], [place] [address]Dr. Claudia Myrick Hemoglobin Ql (U) Negative Normal NEGATIVE [facility] Comment on above: Performed By: #### U AMIC ####[facility] [address] [place], [place] [address]Dr. Claudia Myrick Ketones Ql (U) Negative Normal NEGATIVE [facility] Comment on above: Performed By: #### U AMIC ####[facility] [address] [place] [address]Dr. Claudia Myrick LEUKOCYTES Negative Normal NEGATIVE [facility] Comment on above: Performed By: #### U AMIC ####[facility] [address] [place] [address]Dr. Claudia Myrick MUCOUS NONE SEEN Normal NONE SEEN [facility] Comment on above: Performed By: #### U AMIC ####[facility] [address] [place] [address]Dr. Claudia Myrick Nitrite Ql (U) Negative Normal NEGATIVE [facility] Comment on above: Performed By: #### U AMIC ####[facility] [address] [place], [place] [address]Dr. Claudia Myrick pH (U) 7.0 [pH] Normal 5-9 [facility] Comment on above: Performed By: #### U AMIC ####[facility] [address] [place], [place] [address]Dr. Claudia Ramez RBC NONE SEEN Abnormal 0-2 [facility] Comment on above: Performed By: #### U AMIC ####[facility] [address] [place], [place] [address]Dr. Sandiobey Myrick SPEC GRAVITY 1.015 Normal 1.005-<=1.025 [facility] Comment on above: Performed By: #### U AMIC ####[facility] [address] [place], [place] [address]Dr. Claudia Myrick UA PROTEIN Negative Normal NEGATIVE/ TRACE [facility] Comment on above: Performed By: #### U AMIC ####[facility] [address] [place], [place] [address]Dr. Claudia Myrick Urobilinogen Qn (U) 0.2 {Brendan'U}/dL Normal 0.2 - 1. 0 [facility] Comment on above: Performed By: #### U AMIC ####[facility] [address] [place], [place] [address]Dr. Claudia Myrick WBC NONE SEEN Normal NONE SEEN [facility] Comment on above: Performed By: #### U [facility] ####[facility] [address] [place] [id number] Myrick XR shoulder RT min 2V*on XR shoulder RT min 2V* [address] [address] XRay Report Signed Patient: Boo Bo MR#: [id number] : 1985 Acct:[id number] Age/Sex: 36 / F ADM Date: 03/16/22 Loc: XDUCLY Room: Type: [facility] Attending Dr: Annette MACKENZIE Ordering Provider: ANNETTE STRICKLAND Date of Service: 03/16/22 XR/XR shoulder RT min 2V*: Acute pain of right shoulder Copies to: ANNETTE STRICKLAND RIGHT SHOULDER - 3 views CLINICAL HISTORY: Right shoulder pain since pushing off a couch and hearing a pop last week. Pain radiates down the arm. COMPARISON: None AP, Y and Grashey views were obtained. There is no evidence of fracture or dislocation. Minor degenerative change is present at the acromioclavicular joint and greater tuberosity. There are no significant soft tissue abnormalities. XR/XR shoulder RT min 2V* IMPRESSION: NO ACUTE BONY FINDINGS. Impression dictated by: Delia Kuamr M.D.03/16/2022 1:37 PM Dictation Location: [place] [address] Transcribed By: HARRIS 03/16/22 1334 Dictated By: Delia Kumar MD 03/16/22 1334 Signed By: 03/16/22 1337 Normal [facility] XR shoulder RT min 2V* [facility] [employer] Other XR shoulder RT min 2V* [facility] [employer] Other XR shoulder RT min 2V* [address] [place] [address] [employer] Other XR shoulder RT min 2V* [place] [address] [facility] [employer] Other XR shoulder RT min 2V* XRay Report [employer] Other XR shoulder RT min 2V* Signed [employer] Other XR shoulder RT min 2V* Patient: Boo Bo MR#: [id number] [employer] Other XR shoulder RT min 2V* : 1985 Acct:[id number] [employer] Other XR shoulder RT min 2V* Age/Sex: 36 / F ADM Date: 03/16/22 [employer] Other XR shoulder RT min 2V* Loc: XDUCLY Room: Type: [facility] [employer] Other XR shoulder RT min 2V* [facility]ending Dr: [facility] Strickland [facility] [employer] Other XR shoulder RT min 2V* Ordering Provider: ANNETTE STRICKLAND [employer] Other XR shoulder RT min 2V* Date of Service: 03/16/22 [employer] Other XR shoulder RT min 2V* XR/XR shoulder RT min 2V*: Acute pain of right shoulder [employer] Other XR shoulder RT min 2V* Copies to: ANNETTE STRICKLAND [facility] [employer] Other XR shoulder RT min 2V* RIGHT SHOULDER - 3 views [employer] Other XR shoulder RT min 2V* CLINICAL HISTORY: Right shoulder pain since pushing off a couch and hearing a pop last week. Pain [employer] Other XR shoulder RT min 2V* radiates down the arm. [employer] Other XR shoulder RT min 2V* COMPARISON: None [employer] Other XR shoulder RT min 2V* AP, Y and Grashey views were obtained. There is no evidence of fracture or dislocation. Minor [employer] Other XR shoulder RT min 2V* degenerative change is present at the acromioclavicular joint and greater tuberosity. There are no [employer] Other XR shoulder RT min 2V* significant soft tissue abnormalities. [employer] Other XR shoulder RT min 2V* XR/XR shoulder RT min 2V* [employer] Other XR shoulder RT min 2V* IMPRESSION: [employer] Other XR shoulder RT min 2V* NO ACUTE BONY FINDINGS. [employer] Other XR shoulder RT min 2V* Impression dictated by: Delia Kumar M.D.03/16/2022 1:37 PM [employer] Other XR shoulder RT min 2V* Dictation Location: [place] [address] [employer] Other XR shoulder RT min 2V* Transcribed By: HARRIS 03/16/22 [facility] [employer] Other XR shoulder RT min 2V* Dictated By: Delia Kumar MD 03/16/22 [facility] [employer] Other XR shoulder RT min 2V* Signed By: [employer] Other XR shoulder RT min 2V* 03/16/22 [facility] [employer] Other COVID Quick Testingon 2020 Result Negative [employer] Other Quick Fluon 09-29-2021 FLUAV Ab CF (S) [Titer] Negative [employer] Other FLUBV Ab CF (S) [Titer] Negative [employer] Other Physician Referralon 021 Physician Referral [phone] [id number] Normal [facility] Surgical Pathologyon 020 Surgical Pathology (NOTE) -- Diagnosis -- 1. STOMACH, BIOPSY: - NORMAL GASTRIC MUCOSA. 2. STOMACH, ULCER, BIOPSY: - NORMAL GASTRIC MUCOSA. Pan Rodney M.D. Electronically Signed Out 10/01/2020 Clinical Information Pre-op Diagnosis: GERD, OBESITY Operative Findings: GASTRIC FOR H. PYLORI; GASTRIC ULCER Operation Performed: EGD BIOPSY Source of Specimen 1: GASTRIC BIOPSY FOR H PYLORI (A) 2: GASTRIC ULCER (B) Gross Description 1. BOO BO, GASTRIC BIOPSY FOR H. PYLORI One peña-white tissue fragment, 0.2 x 0.2 x 0.1 cm. Entirely 1cs. 2. BOO BO, GASTRIC ULCER One red-white tissue fragment, 0.3 x 0.2 x 0.1 cm. Entirely 1cs. jg tm Microscopic Description 1, 2. Sections of gastric mucosa show lamina propria without evidence of significant inflammation. There is no evidence of ulcer, intestinal metaplasia or dysplasia. There is no evidence of organisms suspicious for Helicobacter with the routine RANDAL stain. SURGICAL PATHOLOGY CONSULTATION Patient Name: BOO BO [facility] Rec: [id number] Path Number: [id number] [facility] ANATOMIC PATHOLOGY [address] [place] [phone] Normal [facility] Comment on above: Performed By: #### P PPVS #### [facility] [address] [place] [address] [id number] Senior Program Analyst: Bobby Flanagan MD COVID-19on 09-25-2020 SARS-CoV-2 [place], [place] SARS-CoV-2 Not Detected Not Detected [place], [place] Comment on above: The specimen is NEGATIVE for SARS-CoV-2, the novel coronavirus associated with COVID-19. A negative result does not rule out COVID-19. Terrie SARS-CoV-2 for use on the [employer] 6800/8800 Systems is a real-time RT-PCR test intended for the qualitative detection of nucleic acids from SARS-CoV-2 in clinician-collected nasal, nasopharyngeal, and oropharyngeal swab specimens from individuals who meet COVID-19 clinical and/or epidemiological criteria. [facility] SARS-CoV-2 is for use only under Emergency Use Authorization (EUA) in laboratories certified under Clinical Laboratory Improvement Amendments of 1988 (CLIA), 42 U.S.C. 263a, that meet requirements to perform high or moderate complexity tests. An individual without symptoms of COVID-19 and who is not shedding SARS-CoV-2 virus would expect to have a negative (not detected) result in this assay. Fact sheet for Healthcare Providers: https://www.fda.gov/media/829572/download Fact sheet for Patients: https://www.fda.gov/media/859302/download METHODOLOGY: RT-PCR SARS-CoV-2, Rapid [place], [place] Source .NASOPHARYNGEAL SWAB [place], [place] [id number] 09-25-2020 SARS-CoV-2 Not Detected Normal [facility] Comment on above: Result Comment: The specimen is NEGATIVE for SARS-CoV-2, the novel coronavirus associated with COVID-19. A negative result does not rule out COVID-19. Terrie SARS-CoV-2 for use on the [employer] 6800/8800 Systems is a real-time RT-PCR test intended for the qualitative detection of nucleic acids from SARS-CoV-2 in clinician-collected nasal, nasopharyngeal, and oropharyngeal swab specimens from individuals who meet COVID-19 clinical and/or epidemiological criteria. Terrie SARS-CoV-2 is for use only under Emergency Use Authorization (EUA) in laboratories certified under Clinical Laboratory Improvement Amendments of 1988 (CLIA), 42 U.S.C. ?263a, that meet requirements to perform high or moderate complexity tests. An individual without symptoms of COVID-19 and who is not shedding SARS-CoV-2 virus would expect to have a negative (not detected) result in this assay. Fact sheet for Healthcare Providers: https://www.fda.gov/media/794515/download Fact sheet for Patients: https://www.fda.gov/media/085997/download METHODOLOGY: RT-PCR Performed By: #### C OVID #### [address] [address] Senior Program Analyst: Bobby Flanagan MD [facility] [address] [place] [address] [place]. [place], [place] [id number] Senior Program Analyst: Good Hernandez MD SARS-CoV-2 [facility] Comment on above: Performed By: #### C OVID #### [address] [address] Senior Program Analyst: Bobby Flanagan MD [facility] [address] [place] [address] [place] [address] Senior Program Analyst: Good Hernandez MD SARS-CoV-2,Rapid [facility] Comment on above: Performed By: #### C OVID #### [address] [address] Senior Program Analyst: Bobby Flanagan MD [facility] [address] [place] [address] [place], [place] [id number] Senior Program Analyst: Good Hernandez MD [id number] 09-24-2020 SARS-CoV-2 Source .NASOPHARYNGEAL SWAB [facility] Comment on above: Performed By: #### C OVID #### [address] [address] Senior Program Analyst: Bobby Flanagan MD [facility] [address] [place] [address] [place], [place] [id number] Senior Program Analyst: Good Hernandez MD Nicotineon 07-12-2020 [id number] <2 [facility] Comment on above: Performed By: #### A NICOT #### [facility] [address] [place] [address] Senior Program Analyst: Jeffy Benz MD Cotinine <2 [facility] Comment on above: Performed By: #### A NICOT #### [facility] [address] [place] [address] Senior Program Analyst: Jeffy Benz MD Nicotine <2 Normal [facility] Comment on above: Result Comment: (NOT E) Consistent with abstinence from nicotine-containing products for at least 1 week. INTERPRETIVE INFORMATION: Nicotine and Metabolites, Serum or Plasma, Quantitative Methodology: Quantitative Liquid Chromatography-Tandem Mass Spectrometry Positive cutoff: 2 ng/mL For medical purposes only; not valid for forensic use. This test is designed to evaluate recent use of nicotine-containing products. Passive and active exposure cannot be discriminated definitively, although a cutoff of 10 ng/mL cotinine is frequently used for surgery qualification purposes. For smoking cessation programs or compliance testing, the absence of expected drug(s) and/or drug metabolite(s) may indicate non-compliance, inappropriate timing of specimen collection relative to drug administration, poor drug absorption, or limitations of testing. This test cannot distinguish between use of tobacco and purified nicotine products. The concentration value must be greater than or equal to the cutoff to be reported as positive. Test developed and characteristics determined by [facility]. See Compliance Statement B: [employer]/CS Performed By: [facility] [address] [place] [address] Trucking Supervisor: Ashley Price MD Performed By: #### A NICOT #### [facility] [address] [place] [address] Senior Program Analyst: Jeffy Benz MD [id number] 07-12-2020 SARS-CoV-2 Not Detected Normal Not Detected [facility] Comment on above: Result Comment: (NOT E) This nucleic acid amplification test was developed and its performance characteristics determined by [facility]. Nucleic acid amplification tests include PCR and TMA. This test has not been FDA cleared or approved. This test has been authorized by FDA under an Emergency Use Authorization (EUA). This test is only authorized for the duration of time the declaration that circumstances exist justifying the authorization of the emergency use of in vitro diagnostic tests for detection of SARS-CoV-2 virus and/or diagnosis of COVID-19 infection under section 564(b)(1) of the Act, 21 U.S.C. 360bbb-3(b) (1), unless the authorization is terminated or revoked sooner. When diagnostic testing is negative, the possibility of a false negative result should be considered in the context of a patient's recent exposures and the presence of clinical signs and symptoms consistent with COVID-19. An individual without symptoms of COVID- 19 and who is not shedding SARS-CoV-2 virus would expect to have a negative (not detected) result in this assay. Performed At: [facility] [place] [id number] Latricia Barrera MD Ph:[phone] Performed By: #### D AU #### [facility] [address] [place] [address] Senior Program Analyst: Omari Fisher MD COVID-19 Ambulatoryon 2019 SARS-CoV-2, ELVIN Not Detected Not Detected [place], [place] Comment on above: (NOTE) This nucleic acid amplification test was developed and its performance characteristics determined by [facility]. Nucleic acid amplification tests include PCR and TMA. This test has not been FDA cleared or approved. This test has been authorized by FDA under an Emergency Use Authorization (EUA). This test is only authorized for the duration of time the declaration that circumstances exist justifying the authorization of the emergency use of in vitro diagnostic tests for detection of SARS-CoV-2 virus and/or diagnosis of COVID-19 infection under section 564(b)(1) of the Act, 21 U.S.C. 360bbb-3(b) (1), unless the authorization is terminated or revoked sooner. When diagnostic testing is negative, the possibility of a false negative result should be considered in the context of a patient's recent exposures and the presence of clinical signs and symptoms consistent with COVID-19. An individual without symptoms of COVID- 19 and who is not shedding SARS-CoV-2 virus would expect to have a negative (not detected) result in this assay. Performed At: [facility] [address] [facility] [place] [id number] Latricia Barrera MD Ph:[phone] Drug Scr, Abuse, Uron 2019 Amphetamine(s),Ur Negative Normal [facility] Comment on above: Performed By: #### D AU #### [facility] [address] [place] [address] Senior Program Analyst: Omari Fisher MD Barbiturate(s),Ur Negative Normal [facility] Comment on above: Performed By: #### D AU #### [facility] [address] [place] [address] Senior Program Analyst: Omari Fisher MD Base excess Calc (Bld) [Moles/Vol] Negative Normal [facility] Comment on above: Performed By: #### D AU #### [facility] [address] [place] [address] Senior Program Analyst: Omari Fisher MD Benzodiazepine(s) Negative Normal [facility] Comment on above: Performed By: #### D AU #### [facility] [address] [place], [facility] Senior Program Analyst: Omari Fisher MD Buprenorphrine, Ur Negative Normal [facility] Comment on above: Performed By: #### D AU #### [facility] [address] [place], [place] [address] Senior Program Analyst: Omari Fisher MD Cannabinoid(s),Ur Negative Normal [facility] Comment on above: Performed By: #### D AU #### [facility] [address] [place], [place] [address] Senior Program Analyst: Omari Fisher MD Methadone Ql (U) Negative Normal [facility] Comment on above: Performed By: #### D AU #### [facility] [address] [place] [address] Senior Program Analyst: Omari Fisher MD Methamphetamine, Ur Negative Normal [facility] Comment on above: Performed By: #### D AU #### [facility] [address] [place], [place] [id number] Senior Program Analyst: Omari Fisher MD Opiate(s), Ur Negative Normal [facility] Comment on above: Performed By: #### D AU #### [facility] [address] [place] [address] Senior Program Analyst: Omari Fisher MD Oxycodone, Urine Negative Normal [facility] Comment on above: Performed By: #### D AU #### [facility] [address] [place] [address] Senior Program Analyst: Omari Fisher MD Phencyclidine, Ur Negative Normal [facility] Comment on above: Performed By: #### D AU #### [facility] [address] [place] [address] Senior Program Analyst: Omari Fisher MD Propoxyphene,Urine Negative Normal NEG [facility] Comment on above: Performed By: #### D AU #### [facility] [address] [place], [place] [address] Senior Program Analyst: Omari Fisher MD Tricyclic antidepressants Screen Ql (U) Negative [facility] Comment on above: Result Comment: Drug screen results are to be used for medical purposes only. All positive results are unconfirmed. Testing for employment or legal uses should be sent to a reference laboratory for confirmation. Performed By: #### D AU #### [facility] [address] [place] [address] Dr. [place], [place] [id number] Senior Program Analyst: Omari Fisher MD Interpretive Info NOT REPORTED Normal [facility] Comment on above: Performed By: #### D AU #### [facility] [address] [place], [place] 1156383 Senior Program Analyst: Omari Fisher MD MDMA, Urine NOT REPORTED Normal [facility] Comment on above: Performed By: #### D AU #### [facility] [address] [place], [place] [id number] Senior Program Analyst: Omari Fisher MD Urine Drug Screenon 09-28-20 20 Amphetamine Screen, Ur Negative NEGATIVE [facility] [place] [place] Barbiturate Screen, Ur Negative NEGATIVE [facility] [place] Benzodiazepine Screen, Urine Negative NEGATIVE [facility] [place] Buprenorphine Urine Negative NEGATIVE [facility] [place] Cannabinoid Scrn, Ur Negative NEGATIVE [facility] [place] Cocaine Metabolite, Urine Negative NEGATIVE [facility] [place] MDMA, Urine NOT REPORTED NEGATIVE [facility] [place] [place] Methadone Screen, Urine Negative NEGATIVE [facility] [place] Methamphetamine, Urine Negative NEGATIVE [facility] [place] Opiates, Urine Negative NEGATIVE [facility] [place] Oxycodone Screen, Ur Negative NEGATIVE [facility] [place] Phencyclidine, Urine Negative NEGATIVE [facility] [place] Propoxyphene, Urine Negative NEGATIVE [facility] [place] Test Information NOT REPORTED [facility] [place] Tricyclic Antidepressants, Urine Negative NEGATIVE [facility] [place] Comment on above: Drug screen results are to be used for medical purposes only. All positive results are unconfirmed. Testing for employment or legal uses should be sent to a reference laboratory for confirmation. Nicotineon 04-21-2020 [id number] 95 ng/mL [facility] Comment on above: Performed By: #### D AU #### [facility] [address] [place] [place] [address] Senior Program Analyst: Omari Fisher MD Cotinine 190 ng/mL [facility] Comment on above: Performed By: #### D AU #### [facility] [address] [place] [address] Senior Program Analyst: Omari Fisher MD Nicotine 15 ng/mL [facility] Comment on above: Result Comment: (NOT E) Consistent with use of a nicotine-containing product within 48 hours of specimen collection. Nicotine is metabolized to cotinine and [id number]. INTERPRETIVE INFORMATION: Nicotine and Metabolites, Serum or Plasma, Quantitative Methodology: Quantitative Liquid Chromatography-Tandem Mass Spectrometry Positive cutoff: 2 ng/mL For medical purposes only; not valid for forensic use. This test is designed to evaluate recent use of nicotine-containing products. Passive and active exposure cannot be discriminated definitively, although a cutoff of 10 ng/mL cotinine is frequently used for surgery qualification purposes. For smoking cessation programs or compliance testing, the absence of expected drug(s) and/or drug metabolite(s) may indicate non-compliance, inappropriate timing of specimen collection relative to drug administration, poor drug absorption, or limitations of testing. This test cannot distinguish between use of tobacco and purified nicotine products. The concentration value must be greater than or equal to the cutoff to be reported as positive. Test developed and characteristics determined by [facility]. See Compliance Statement B: [email or web address] Performed By: [facility] [address] [place] [address] Trucking Supervisor: Jeffy Benz MD, MS Performed By: #### D AU #### [address] [place] [address] Senior Program Analyst: Omari Fisher MD Vitamin B1on 04-21-2020 Vitamin B1 135 nmol/L Normal 70-180 [facility] Comment on above: Result Comment: (NOT E) INTERPRETIVE INFORMATION: Vitamin B1, Whole Blood This assay measures the concentration of thiamine diphosphate (TDP), the primary active form of vitamin B1. Approximately 90 percent of vitamin B1 present in whole blood is TDP. Thiamine and thiamine monophosphate, which comprise the remaining 10 percent, are not measured. Test developed and characteristics determined by [facility]. See Compliance Statement B: [employer] Performed By: [facility] [address] [place] [address] Trucking Supervisor: Jeffy Benz MD, MS Performed By: #### D AU #### [address] [place] [address] Senior Program Analyst: Omari Fisher MD Vitamin Aon 04-20-[address] [facility] Comment on above: Result Comment: (NOT E) Test developed and characteristics determined by [facility]. See Compliance Statement B: [email or web address] Performed By: [facility] [address] [place] [address] Trucking Supervisor: Jeffy Benz MD, MS Performed By: #### D AU #### [address] [place] [address] Senior Program Analyst: Omari Fisher MD Retinol (Vitamin A) 0.65 mg/L Normal 0.30-1.20 [facility] Comment on above: Performed By: #### D AU #### [facility] [address] [place] [address] Senior Program Analyst: Omari Fisher MD Retinyl Palmitate 0.03 mg/L Normal 0.00-0.10 [facility] Comment on above: Performed By: #### D AU #### [facility] [address] [place] [address] Senior Program Analyst: Omari Fisher MD Zinc, Serumon 04-20-2020 Zinc, Serum 94.2 ug/dL Normal 60.0-120.0 [facility] Comment on above: Result Comment: (NOT E) INTERPRETIVE INFORMATION: Zinc, Serum or Plasma Elevated results may be due to skin or collection-related contamination, including the use of a noncertified metal-free collection/transport tube. If contamination concerns exist due to elevated levels of serum/plasma zinc, confirmation with a second specimen collected in a certified metal-free tube is recommended. Circulating zinc concentrations are dependent on albumin status and are depressed with malnutrition. Zinc may also be lowered with infection, inflammation, stress, oral contraceptives, and . Zinc may be elevated with zinc supplementation or fasting. Elevated zinc concentrations may interfere with copper absorption. Test developed and characteristics determined by [facility]. See Compliance Statement B: [employer] Performed By: [facility] [address] [place] [id number] Trucking Supervisor: Jeffy Benz MD, MS Performed By: #### D AU #### [facility] [address] [place] [address] Senior Program Analyst: Omari Fisher MD B12/Folate Panelon 0 Cobalamin (Vitamin B12) [Mass/Vol] 324 pg/mL Normal 232-1245 [facility] Comment on above: Performed By: #### B 12FOL #### [facility] [address] [place] [address] [id number] Senior Program Analyst: Bobby Flanagan MD Folic Acid 14.3 ng/mL Normal >4.8 [facility] Comment on above: Performed By: #### B 12FOL #### [facility] [employer] [facility] [place] [address] Senior Program Analyst: Bobby Flanagan MD CBC Auto Differentialon 07-0 Basophils (Bld) [#/Vol] 0.04 10*3/uL [place], [place] Basophils/100 WBC (Bld) 1 % 0 - 2 % [place] Differential Type NOT REPORTED [place] Eosinophils (Bld) [#/Vol] 0.37 10*3/uL [place] Eosinophils/100 WBC (Bld) 5 % High 1 - 4 % [place] Erythrocyte distribution width (RBC) [Ratio] 12.6 % 11.8 - 14.4 % [place] Hematocrit (Bld) [Volume fraction] 42.8 % 36.3 - 47.1 % [place] Hemoglobin (Bld) [Mass/Vol] 14.2 g/dL 11.9 - 15.1 g/dL [place] Immature granulocytes (Bld) [#/Vol] 0 % 0 [place] Immature granulocytes (Bld) [#/Vol] 10*3/uL [place] Interpretation and review of laboratory results Abnormal [place] Lymphocytes (Bld) [#/Vol] 1.80 10*3/uL [place] Lymphocytes/100 WBC (Bld) 25 % 24 - 43 % [place] MCH (RBC) [Entitic mass] 30.7 pg 25.2 - 33.5 pg [place] MCHC (RBC) [Mass/Vol] 33.2 g/dL 28.4 - 34.8 g/dL [place] MCV (RBC) [Entitic vol] 92.4 fL 82.6 - 102.9 fL [place] Monocytes (Bld) [#/Vol] 0.61 10*3/uL [place] Monocytes/100 WBC (Bld) 8 % 3 - 12 % [place] Platelet mean volume (Bld) [Entitic vol] 11.2 fL 8.1 - 13.5 fL [place] Platelets (Bld) [#/Vol] 201 10*3/uL [place] Platelets (Bld) [#/Vol] NOT REPORTED [place] RBC (Bld) [#/Vol] 4.63 10*6/uL 3.95 - 5.1 1 m/uL [place] RBC morphology finding Nom (Bld) NOT REPORTED [place] Segmented neutrophils/100 WBC (Bld) 61 % 36 - 65 % [place] Segs Absolute 4.41 [place], [place] WBC (Bld) [#/Vol] 0.0 10*3/uL 0.0 per 10 0 WBC [place] WBC (Bld) [#/Vol] 7.3 10*3/uL [place] WBC Morphology NOT REPORTED [place], [place] CBC with Diffon 04-18-2020 Abs. Basophil 0.04 k/uL Normal 0.00-0.20 [facility] Comment on above: Performed By: #### F YURIY, ABDULKADIR, VD25, PTHNCA #### [facility] [address] [place], [place] [id number] Senior Program Analyst: Bobby Flanagan MD #### RENA LAWSON AVITB1, NATY #### [facility] [address] [place] [address] Senior Program Analyst: Jeffy eBnz MD #### CP, GLYHGB, CDP, MG, LIPR #### [facility] [address] [place] [address] Senior Program Analyst: Omari Fisher MD Abs.Imm.Granulocyte <0.03 Normal 0.00-0.30 [facility] Comment on above: Performed By: #### F YURIY, FEBC, VD25, PTHNCA #### [address] [address] Senior Program Analyst: Bobby Flanagan MD #### RENA LAWSON AVITB1, NATY #### [facility] [address] [place], [place] [id number] Senior Program Analyst: Jeffy Benz MD #### CP, GLYHGB, CDP, MG, LIPR #### [address] [place] [phone] Senior Program Analyst: Omari Fisher MD Abs.Neutrophil (Seg) 4.41 k/uL Normal 1.50-8.10 [facility] Comment on above: Performed By: #### ABDULKADIR BENSON, VD25, PTHNCA #### [address] [phone] Senior Program Analyst: Bobby Flanagan MD #### RENA LAWSON AVITB1, NTAY #### [facility] [address] [place] [address] [phone] Senior Program Analyst: Jeffy Benz MD #### HANNAH, SUYAPA, CDP, MG, LIPR #### [address] [place] [phone] Senior Program Analyst: Omari Fisher MD Basophils/100 WBC (Bld) 1 % Normal 0-2 [facility] Comment on above: Performed By: #### ABDULKADIR BENSON, VD25, PTHNCA #### [address] [phone] Senior Program Analyst: Bobby Flanagan MD #### RENA LAWSON AVITB1, NATY #### [facility] [address] [place], [place] [phone] Senior Program Analyst: Jeffy Benz MD #### CP, GLYHGB, CDP, MG, LIPR #### [address] [place] [phone] Senior Program Analyst: Omari Fisher MD Eosinophils (Bld) [#/Vol] 0.37 10*3/uL Normal 0.00-0.44 [facility] Comment on above: Performed By: #### F YURIY, FEBC, VD25, PTHNCA #### [address] [phone] Senior Program Analyst: Bobby Flanagan MD #### LULU, RENA, ASHLITB1, AVITAS #### [facility] [address] [place], [place] [phone] Senior Program Analyst: Jeffy Benz MD #### CP, GLYHGB, CDP, MG, LIPR #### [address] [place] [phone] Senior Program Analyst: Omari Fisher MD Eosinophils/100 WBC (Bld) 5 % High 1-4 [facility] Comment on above: Performed By: #### F YURIY, FEBC, VD25, PTHNCA #### [address] [phone] Senior Program Analyst: Bobby Flanagan MD #### LULU, RENA, ASHLITB1, AVISHANES #### [facility] [address] [place] [address] Senior Program Analyst: Jeffy Benz MD #### CP, GLYHGB, CDP, MG, LIPR #### [address] [place] [phone] Senior Program Analyst: Omari Fisher MD Erythrocyte distribution width (RBC) [Ratio] 12.6 % Normal 11.8-14.4 [facility] Comment on above: Performed By: #### F YURIY, FEBC, VD25, PTHNCA #### [address] [phone] Senior Program Analyst: Bobby Flanagan MD #### AZN, ANICOT, AVITB1, AVITAS #### [facility] [address] [place] [address] Senior Program Analyst: Jeffy Benz MD #### CP, GLYHGB, CDP, MG, LIPR #### [address] [place] [address] Senior Program Analyst: Omari Fisher MD Hematocrit (Bld) [Volume fraction] 42.8 % Normal 36.3-47.1 [facility] Comment on above: Performed By: #### F YURIY, FEBC, VD25, PTHNCA #### [address] [phone] Senior Program Analyst: Bobby Flanagan MD #### AZN, ANICOT, AVITB1, AVITAS #### [facility] [address] [place] [phone] Senior Program Analyst: Jeffy Benz MD #### CP, GLYHGB, CDP, MG, LIPR #### [address] [place] [address] Senior Program Analyst: Omari Fisher MD Hemoglobin (Bld) [Mass/Vol] 14.2 g/dL Normal 11.9-15.1 [facility] Comment on above: Performed By: #### F YURIY, FEBC, VD25, PTHNCA #### [address] [phone] Senior Program Analyst: Bobby Flanagan MD #### AZN, ANICOT, AVITB1, AVITAS #### [facility] [address] [place], [place] [phone] Senior Program Analyst: Jeffy Benz MD #### CP, GLYHGB, CDP, MG, LIPR #### [address] [place] [address] Senior Program Analyst: Omari Fisher MD Immature granulocytes (Bld) [#/Vol] 0 % Normal 0 [facility] Comment on above: Performed By: #### F YURIY, FEBC, VD25, PTHNCA #### [address] [address] Senior Program Analyst: Bobby Flanagan MD #### AZN, ANICOT, AVITB1, AVITAS #### [facility] [address] [place], [place] [phone] Senior Program Analyst: Jeffy Benz MD #### CP, GLYHGB, CDP, MG, LIPR #### [address] [place] [address] Senior Program Analyst: Omari Fisher MD Lymphocytes (Bld) [#/Vol] 1.80 10*3/uL Normal 1.10-3.70 [facility] Comment on above: Performed By: #### F YURIY, FEBC, VD25, PTHNCA #### [place] [address] Senior Program Analyst: Bobby Flanagan MD #### AZN, ANICOT, AVITB1, AVITAS #### [facility] [address] [place] [address] Senior Program Analyst: Jeffy Benz MD #### CP, GLYHGB, CDP, MG, LIPR #### [address] [place] [phone] Senior Program Analyst: Omari Fisher MD Lymphocytes/100 WBC (Bld) 25 % Normal 24-43 [facility] Comment on above: Performed By: #### F YURIY, FEBC, VD25, PTHNCA #### [address] [address] Senior Program Analyst: Bobby Flanagan MD #### AZN, ANICOT, AVITB1, AVITAS #### [facility] [address] [place], [place] [id number] Senior Program Analyst: Jeffy Benz MD #### CP, GLYHGB, CDP, MG, LIPR #### [address] [place] [address] Senior Program Analyst: Omari Fisher MD MCH (RBC) [Entitic mass] 30.7 pg Normal 25.2-33.5 [facility] Comment on above: Performed By: #### F YURIY, FEMAO, VD25, PTHNCA #### [facility] [address] [place] [phone] Senior Program Analyst: Bobby Flanagan MD #### RENA LAWSON AVITB1, NATY #### [facility] [address] [place] [address] Senior Program Analyst: Jeffy Benz MD #### CP, GLYHGB, CDP, MG, LIPR #### [address] [place] [phone] Senior Program Analyst: Omari Fisher MD MCHC (RBC) [Mass/Vol] 33.2 g/dL Normal 28.4-34.8 [facility] Comment on above: Performed By: #### ABDULKADIR BENSON, VD25, PTHNCA #### [address] [phone] Senior Program Analyst: Bobby Flanagan MD #### RENA LAWSON, ASHLITBWinnie, AVITAAnna #### [facility] [address] [place] [address] Senior Program Analyst: Jeffy Benz MD #### CP, GLYHGB, CDP, MG, LIPR #### [address] [place] [address] Senior Program Analyst: Omari Fisher MD MCV (RBC) [Entitic vol] 92.4 fL Normal 82.6-102.9 [facility] Comment on above: Performed By: #### F YURIY, FEBC, VD25, PTHNCA #### [address] [address] Senior Program Analyst: Bobby Flanagan MD #### AZN, ANDREICOSatya, AVITB1, AVITAS #### [facility] [address] [place] [address] Senior Program Analyst: Jeffy Benz MD #### CP, GLYHGB, CDP, MG, LIPR #### [address] [place], [place] [phone] Senior Program Analyst: Omari Fisher MD Monocytes (Bld) [#/Vol] 0.61 10*3/uL Normal 0.10-1.20 [facility] Comment on above: Performed By: #### F YURIY, FEBC, VD25, PTHNCA #### [address] [address] Senior Program Analyst: Bobby Flanagan MD #### AZN, ANDREICOT, AVITB1, AVITAS #### [facility] [address] [place], [place] [id number] Senior Program Analyst: Jeffy Benz MD #### CP, GLYHGB, CDP, MG, LIPR #### [address] [place] [phone] Senior Program Analyst: Omari Fisher MD Monocytes/100 WBC (Bld) 8 % Normal 3-12 [facility] Comment on above: Performed By: #### F YURIY, FEBC, VD25, PTHNCA #### [address] [address] Senior Program Analyst: Bobby Flanagan MD #### AZN, ANDREICOT, AVITB1, AVITAS #### [facility] [address] [place], [place] [id number] Senior Program Analyst: Jeffy Benz MD #### CP, GLYHGB, CDP, MG, LIPR #### [facility] [address] [place], [place] [phone] Senior Program Analyst: Omari Fisher MD Neutrophil (Seg) 61 % Normal 36-65 [facility] Comment on above: Performed By: #### F YURIY, FEBC, VD25, PTHNCA #### [address] [phone] Senior Program Analyst: Bobby Flanagan MD #### LULU, RENA, ASHLITB1, ASHLITAS #### [facility] [address] [place], [place] [id number] Senior Program Analyst: Jeffy Benz MD #### CP, GLYHGB, CDP, MG, LIPR #### [address] [place] [phone] Senior Program Analyst: Omari Fisher MD NRBC Automated 0.0 per 100 WBC Normal 0.0 [facility] Comment on above: Performed By: #### F YURIY, FEBC, VD25, PTHNCA #### [address] [phone] Senior Program Analyst: Bobby Flanagan MD #### RENA LAWSON, MERLYN1, HUANGS #### [facility] [address] [place] [address] Senior Program Analyst: Jeffy Benz MD #### CP, GLYHGB, CDP, MG, LIPR #### [address] [place] [phone] Senior Program Analyst: Omari Fisher MD Platelet mean volume (Bld) [Entitic vol] 11.2 fL Normal 8.1-13.5 [facility] Comment on above: Performed By: #### F YURIY, FEBC, VD25, PTHNCA #### [address] [phone] Senior Program Analyst: Bobby Flanagan MD #### AZN, ANICOT, AVITB1, AVITAS #### [facility] [address] [place] [address] Senior Program Analyst: Jeffy Benz MD #### CP, GLYHGB, CDP, MG, LIPR #### [address] [place], [place] [phone] Senior Program Analyst: Omair Fisher MD Platelets (d) [#/Vol] 201 10*3/uL Normal 138-453 [facility] Comment on above: Performed By: #### F YURIY, FEBC, VD25, PTHNCA #### [address] [address] Senior Program Analyst: Bobby Flanagan MD #### AZN, ANICOT, AVITB1, AVITAS #### [facility] [address] [place] [address] Senior Program Analyst: Jeffy Benz MD #### CP, GLYHGB, CDP, MG, LIPR #### [address] [place] [phone] Senior Program Analyst: Omari Fisher MD RBC (d) [#/Vol] 4.63 10*6/uL Normal 3.95-5.11 [facility] Comment on above: Performed By: #### F YURIY, FEBC, VD25, PTHNCA #### [address] [address] Senior Program Analyst: Bobby Flanagan MD #### AZN, ANICOT, AVITB1, AVITAS #### [facility] [address] [place] [address] Senior Program Analyst: Jeffy Benz MD #### CP, GLYHGB, CDP, MG, LIPR #### [address] [place] [address] Senior Program Analyst: Omari Fisher MD WBC (Bld) [#/Vol] 7.3 10*3/uL Normal 3.5-11.3 [facility] Comment on above: Performed By: #### F YURIY, FEBC, VD25, PTHNCA #### [address] [address] Senior Program Analyst: Bobby Flanagan MD #### AZN, ANICOT, AVITB1, AVITAS #### [facility] [address] [place] [address] Senior Program Analyst: Jeffy Benz MD #### CP, GLYHGB, CDP, MG, LIPR #### [address] [place] [address] Senior Program Analyst: Omari Fisher MD Auto Diff Performed NOT REPORTED Normal [facility] Comment on above: Performed By: #### F YURIY, FEBC, VD25, PTHNCA #### [address] [address] Senior Program Analyst: Bobby Flanagan MD #### AZN, ANICOT, AVITB1, AVITAS #### [facility] [address], [place] [phone] Senior Program Analyst: Jeffy Benz MD #### CP, GLYHGB, CDP, MG, LIPR #### [address] [place] [phone] Senior Program Analyst: Omari Fisher MD Platelets (Bld) [#/Vol] NOT REPORTED Normal [facility] Comment on above: Performed By: #### F YURIY, FEBC, VD25, PTHNCA #### [address] [address] Senior Program Analyst: Bobby Flanagan MD #### AZN, ANICOT, AVITB1, AVITAS #### [facility] [address] [place] [address] Senior Program Analyst: Jeffy Benz MD #### CP, GLYHGB, CDP, MG, LIPR #### [facility] [address] [place] [address] [place] [address] Senior Program Analyst: Omari Fisher MD RBC morphology finding Nom (Bld) NOT REPORTED [facility] Comment on above: Performed By: #### F YURIY, FEBC, VD25, PTHNCA #### [address] [phone] Senior Program Analyst: Bobby Flanagan MD #### AZN, ANICOT, AVITB1, AVITAS #### [facility] [address] [place] [address] Senior Program Analyst: Jeffy Benz MD #### CP, GLYHGB, CDP, MG, LIPR #### [address] [place] [address] Senior Program Analyst: Omari Fisher MD WBC Morphology NOT REPORTED Normal [facility] Comment on above: Performed By: #### F YURIY, FEBC, VD25, PTHNCA #### [address] [phone] Senior Program Analyst: Bobby Flanagan MD #### AZN, ANICOT, AVITB1, AVITAS #### [facility] [address] [place] [address] Senior Program Analyst: Jeffy Benz MD #### CP, GLYHGB, CDP, MG, LIPR #### [address] [place] [address] Senior Program Analyst: Omari Fisher MD Comp Metabolic Profon 2019 (cont.) [facility] Comment on above: Result Comment: Aver age GFR for 30-39 years old: 107 mL/min/1.73sq m Chronic Kidney Disease: <60 mL/min/1.73sq m Kidney failure: <15 mL/min/1.73sq m eGFR calculated using average adult body mass. Additional eGFR calculator available at: [email or web address] Performed By: #### F ABDULKADIR YAN, VD25, PTHNCA #### [address] [address] Senior Program Analyst: Bobby Flanagan MD #### RENA LAWSON AVITB1, NATY #### [facility] [address], [place] [id number] Senior Program Analyst: Jeffy Benz MD #### CP, GLYHGB, CDP, MG, LIPR #### [address] [place] [address] Senior Program Analyst: Omari Fisher MD Albumin [Mass/Vol] 4.4 g/dL Normal 3.5-5.2 [facility] Comment on above: Performed By: #### ABDULKADIR BENSON, VD25, PTHNCA #### [address] [address] Senior Program Analyst: Bobby Flanagan MD #### RENA LAWSON AVITB1, NATY #### [facility] [address], [place] [id number] Senior Program Analyst: Jeffy Benz MD #### CP, GLYHGB, CDP, MG, LIPR #### [address] [place] [address] Senior Program Analyst: Omari Fisher MD Albumin/Globulin [Mass ratio] 1.7 {ratio} Normal 1.0-2.5 [facility] Comment on above: Performed By: #### ABDULKADIR BENSON, VD25, PTHNCA #### [address] [phone] Senior Program Analyst: Bobby Flanagan MD #### RENA LAWSON AVITB1, AVITAS #### [facility] [address] [place] [address] Senior Program Analyst: Jeffy Benz MD #### CP, GLYHGB, CDP, MG, LIPR #### [facility] [address] [place] [address] [place], [place] [phone] Senior Program Analyst: Omari Fisher MD Alkaline Phos 68 U/L Normal 35-104 [facility] Comment on above: Performed By: #### F YURIY, FEBC, VD25, PTHNCA #### [address] [phone] Senior Program Analyst: Bobby Flanagan MD #### RENA LAWSON AVITB1, NATY #### [facility] [address] [place], [place] [id number] Senior Program Analyst: Jeffy Benz MD #### CP, GLYHGB, CDP, MG, LIPR #### [address] [place] [address] Senior Program Analyst: Omari Fisher MD ALT [Catalytic activity/Vol] 35 U/L High 5-33 [facility] Comment on above: Performed By: #### F YURIY, FEMAO, VD25, PTHNCA #### [address] [address] Senior Program Analyst: Bobby Flanagan MD #### RENA LAWSON, ASHLITB1, AVITAS #### [facility] [address] [place], [place] [id number] Senior Program Analyst: Jeffy Benz MD #### CP, GLYHGB, CDP, MG, LIPR #### [address] [place] [address] Senior Program Analyst: Omari Fisher MD Anion gap [Moles/Vol] 13 mmol/L Normal 9-17 [facility] Comment on above: Performed By: #### F YURIY, FEBC, VD25, PTHNCA #### [place] [address] [place] [address] Senior Program Analyst: Bobby Flanagan MD #### RENA LAWSON AVITB1, NATY #### [facility] [address] [place], [place] [id number] Senior Program Analyst: Jeffy Benz MD #### CP, GLYHGB, CDP, MG, LIPR #### [address] [place] [address] Senior Program Analyst: Omari Fisher MD AST [Catalytic activity/Vol] 24 U/L Normal <32 [facility] Comment on above: Performed By: #### F YURIY, ABDULKADIR, VD25, PTHNCA #### [address] [address] Senior Program Analyst: Bobby Flanagan MD #### RENA LAWSON AVITB1, NATY #### [facility] [address] [place] [address] Senior Program Analyst: Jeffy Benz MD #### HANNAH, NERIB, CDP, MG, LIPR #### [address] [place] [address] Senior Program Analyst: Omari Fisher MD Bilirubin Ql (U) 0.51 mg/dL Normal 0.3-1.2 [facility] Comment on above: Performed By: #### F YURIY, FEBC, VD25, PTHNCA #### [address] [address] Senior Program Analyst: Bobby Flanagan MD #### RENA LAWSON AVITB1, NATY #### [facility] [address] [place], [place] [id number] Senior Program Analyst: Jeffy Benz MD #### CP, GLYHGB, CDP, MG, LIPR #### [address] [place], [place] [phone] Senior Program Analyst: Omari Fisher MD BUN/CRE Ratio 18 Normal 9-20 [facility] Comment on above: Performed By: #### F YURIY, FEBC, VD25, PTHNCA #### [address] [address] Senior Program Analyst: Bobby Flnaagan MD #### AZJustin, RENA, ASHLITB1, AVITAS #### [facility] [address] [place], [place] [id number] Senior Program Analyst: Jeffy Benz MD #### CP, GLYHGB, CDP, MG, LIPR #### [address] [place] [address] Senior Program Analyst: Omari Fisher MD Calcium [Mass/Vol] 9.4 mg/dL Normal 8.6-10.4 [facility] Comment on above: Performed By: #### F YURIY, FEBC, VD25, PTHNCA #### [address] [address] Senior Program Analyst: Bobby Flanagan MD #### RENA LAWSON, MERLYN1, HUANGS #### [facility] [address] [place], [place] [id number] Senior Program Analyst: Jeffy Benz MD #### CP, GLYHGB, CDP, MG, LIPR #### [address] [place], [place] [phone] Senior Program Analyst: Omari Fisher MD Chloride [Moles/Vol] 100 mmol/L Normal 98-107 [facility] Comment on above: Performed By: #### F YURIY, FEBC, VD25, PTHNCA #### [address] [address] Senior Program Analyst: Bobby Flanagan MD #### RENA LAWSON, ASHLITB1, AVITAS #### [facility] [address] [place] [address] Senior Program Analyst: Jeffy Benz MD #### CP, GLYHGB, CDP, MG, LIPR #### [address] [place] [address] Senior Program Analyst: Omari Fisher MD CO2 [Moles/Vol] 27 mmol/L Normal 20-31 [facility] Comment on above: Performed By: #### F YURIY, FEBC, VD25, PTHNCA #### [address] [phone] Senior Program Analyst: Bobby Flanagan MD #### LULU, RENA, ASHLITB1, AVITAS #### [facility] [address] [place], [place] [id number] Senior Program Analyst: Jeffy Benz MD #### CP, GLYHGB, CDP, MG, LIPR #### [address] [place] [address] Senior Program Analyst: Omari Fisher MD Creatinine [Mass/Vol] 0.83 mg/dL Normal 0.50-0.90 [facility] Comment on above: Performed By: #### F YURIY, FEBC, VD25, PTHNCA #### [address] [phone] Senior Program Analyst: Bobby Flanagan MD #### RENA LAWSON, AVITB1, AVITAS #### [facility] [address] [place], [place] [id number] Senior Program Analyst: Jeffy Benz MD #### CP, GLYHGB, CDP, MG, LIPR #### [address] [place] [address] Senior Program Analyst: Omari Fisher MD GFR, Amer >60 Normal >60 [facility] Comment on above: Performed By: #### F YURIY FEBC, VD25, PTHNCA #### [facility] [place] [address] Senior Program Analyst: Bobby Flanagan MD #### RENA LAWSON, ASHLITB1, AVITAS #### [facility] [address] [place] [address] Senior Program Analyst: Jeffy Benz MD #### CP, GLYHGB, CDP, MG, LIPR #### [facility] [address] [place], [place] 8343583 Senior Program Analyst: Omari Fisher MD GFR,non Amer >60 Normal >60 [facility] Comment on above: Performed By: #### F YURIY, FEBC, VD25, PTHNCA #### [address] [phone] Senior Program Analyst: Bobby Flanagan MD #### LULU, RENA, ASHLITB1, AVITAS #### [facility] [address] [place], [place] [id number] Senior Program Analyst: Jeffy Benz MD #### CP, GLYHGB, CDP, MG, LIPR #### [address] [place], [place] [phone] Senior Program Analyst: Omari Fisher MD Glucose [Mass/Vol] 117 mg/dL High 70-99 [facility] Comment on above: Performed By: #### F YURIY, FEBC, VD25, PTHNCA #### [address] [address] Senior Program Analyst: Bobby Flanagan MD #### RENA LAWSON, ASHLITB1, AVITAS #### [facility] [address] [place], [place] [id number] Senior Program Analyst: Jeffy Benz MD #### CP, GLYHGB, CDP, MG, LIPR #### [address] [place] [address] Senior Program Analyst: Omari Fisher MD Potassium [Moles/Vol] 3.5 mmol/L Low 3.7-5.3 [facility] Comment on above: Performed By: #### F YURIY, FEBC, VD25, PTHNCA #### [address] [phone] Senior Program Analyst: Bobby Flanagan MD #### AZN, ANDREICOT, AVITB1, AVITAS #### [facility] [address] [place], [place] [phone] Senior Program Analyst: Jeffy Benz MD #### CP, GLYHGB, CDP, MG, LIPR #### [address] [place] [address] Senior Program Analyst: Omari Fisher MD Protein [Mass/Vol] 7.0 g/dL Normal 6.4-8.3 [facility] Comment on above: Performed By: #### F YURIY, FEBC, VD25, PTHNCA #### [address] [phone] Senior Program Analyst: Bobby Flanagan MD #### LULU, RENA, ASHLITB1, AVITAS #### [facility] [address] [place] [address] Senior Program Analyst: Jeffy Benz MD #### CP, GLYHGB, CDP, MG, LIPR #### [address] [place] [address] Senior Program Analyst: Omari Fisher MD Sodium [Moles/Vol] 140 mmol/L Normal 135-144 [facility] Comment on above: Performed By: #### F YURIY, FEBC, VD25, PTHNCA #### [address] [phone] Senior Program Analyst: Bobby Flanagan MD #### AZN, ANICOT, AVITB1, AVITAS #### [facility] [address] [place], [place] [id number] Senior Program Analyst: Jeffy Benz MD #### CP, GLYHGB, CDP, MG, LIPR #### [address] [place] [address] Senior Program Analyst: Omari Fisher MD Staging: Normal [facility] Comment on above: Result Comment: Stag e 1: Some kidney damage normal GFR Stage 2: Mild kidney damage GFR 60-89 Stage 3: Moderate kidney damage GFR 30-59 Stage 4: Severe kidney damage GFR 15-29 Stage 5: Severe kidney damage GFR <15 ESRD - chronic treatment by dialysis or transplant Performed By: #### F ABDULKADIR YAN, VD25, PTHNCA #### [address] [phone] Senior Program Analyst: Bobby Flanagan MD #### LULU, RENA, AVITB1, AVITAS #### [facility] [address] [place], [place] [id number] Senior Program Analyst: Jeffy Benz MD #### CP, GLYHGB, CDP, MG, LIPR #### [address] [place] [address] Senior Program Analyst: Omari Fisher MD Urea nitrogen [Mass/Vol] 15 mg/dL Normal 6-20 [facility] Comment on above: Performed By: #### F YURIY, FEBC, VD25, PTHNCA #### [address] [phone] Senior Program Analyst: Bobby Flanagan MD #### RENA LAWSON, ASHLITB1, AVITAS #### [facility] [address] [place], [place] [id number] Senior Program Analyst: Jeffy Benz MD #### CP, GLYHGB, CDP, MG, LIPR #### [address] [place] [address] Senior Program Analyst: Omari Fisher MD Comprehensive Metabolic Pane gisela 04-18-2020 Albumin [Mass/Vol] 4.4 g/dL 3.5 - 5.2 g/dL [place], [place] Albumin/Globulin [Mass ratio] 1.7 {ratio} [place] ALP [Catalytic activity/Vol] 68 U/L 35 - 104 U/L [place] ALT [Catalytic activity/Vol] 35 U/L High 5 - 33 U/L [place] Anion gap [Moles/Vol] 13 mmol/L 9 - 17 mmol/L [place] AST [Catalytic activity/Vol] 24 U/L <32 [place] Bilirubin Ql (U) 0.51 mg/dL 0.3 - 1.2 mg/dL [place] Bun/Cre Ratio 18 [place], [place] Calcium [Mass/Vol] 9.4 mg/dL 8.6 - 10. 4 mg/dL [place] Chloride [Moles/Vol] 100 mmol/L 98 - 107 mmol/L [place] CO2 [Moles/Vol] 27 mmol/L 20 - 31 mmol/L [place] Creatinine [Mass/Vol] 0.83 mg/dL 0.5 - 0.9 mg/dL [place] GFR >60 >60 mL/min [place] GFR Non- >60 >60 mL/min [place] Glucose [Mass/Vol] 117 mg/dL High 70 - 99 mg/dL [place], [place] Potassium [Moles/Vol] 3.5 mmol/L Low 3.7 - 5.3 mmol/L [place] Protein [Mass/Vol] 7.0 g/dL 6.4 - 8.3 g/dL [place] Sodium [Moles/Vol] 140 mmol/L 135 - 144 mmol/L [place] Urea nitrogen [Mass/Vol] 15 mg/dL 6 - 20 mg/dL [place] Ferritinon 04-18-2020 Ferritin [Mass/Vol] 59 ug/L Normal 13-150 [facility] Comment on above: Performed By: #### D AU #### [facility] [address] [place] [address] Senior Program Analyst: Omari Fisher MD Ferritin [Mass/Vol] 59 ug/L 13 - 150 ug/L [facility], [place] Hemoglobin A1Con 04-18-2020 HbA1c (Bld) [Mass fraction] 5.3 % Normal 4.8-5.9 [facility] Comment on above: Performed By: #### F ABDULKADIR YAN, VD25, PTHNCA #### [place] [address] [place], [place] [phone] Senior Program Analyst: Bobby Flanagan MD #### RENA LAWSON, ASHLITB1, AVITAS #### [facility] [address] [place] [address] Senior Program Analyst: Jeffy Benz MD #### CP, GLYHGB, CDP, MG, LIPR #### [address] [place] [address] Senior Program Analyst: Omari Fisher MD HbA1c (Bld) [Mass fraction] 105 mg/dL Normal [facility] Comment on above: Result Comment: The ADA and AACC recommend providing the estimated average glucose result to permit better patient understanding of their HBA1c result. Performed By: #### F ABDULKADIR YAN, VD25, PTHNCA #### [facility] [place], [place] [phone] Senior Program Analyst: Bobby Flanagan MD #### RENA LAWSON, ASHLITB1, AVITAS #### [facility] [address] [place] [address] Senior Program Analyst: Jeffy Benz MD #### CP, GLYHGB, CDP, MG, LIPR #### [address] [place] [address] Senior Program Analyst: Omari Fisher MD Glucose [Mass/Vol] 105 mg/dL [place], [place] Comment on above: The ADA and AACC rec ommend providing the estimated average glucose result to permit better patient understanding of their HBA1c result. HbA1c (Bld) [Mass fraction] 5.3 % 4.8 - 5.9 % [place], [place] Iron Binding Cap.on 04-18-20 20 % Fe Saturation 33 % Normal 20-55 [facility] Comment on above: Performed By: #### D AU #### [facility] [address] [place] [address] Senior Program Analyst: Omari Fisher MD Iron [Mass/Vol] 104 ug/dL Normal 37-145 [facility] Comment on above: Performed By: #### D AU #### [facility] [address] [place] [address] Senior Program Analyst: Omari Fisher MD Total Fe Binding Cap 312 ug/dL Normal 250-450 [facility] Comment on above: Performed By: #### D AU #### [facility] [address] [place] [id number] Senior Program Analyst: Omari Fisher MD Unbound Fe Bind Cap 208 ug/dL Normal 112-347 [facility] Comment on above: Performed By: #### D AU #### [facility] [address] [place] [phone] Senior Program Analyst: Omari Fisher MD Iron and TIBCon 04-18-2020 Iron [Mass/Vol] 104 ug/dL 37 - 145 ug/dL [place] Iron Saturation 33 % 20 - 55 % [place], [place] TIBC 312 ug/dL 250 - 450 ug/dL [place] UIBC 208 ug/dL 112 - 347 ug/dL [place] Lipid Panelon 04-18-2020 Cholesterol [Mass/Vol] 207 mg/dL High <200 [place] Comment on above: Cholesterol Guidelines: <200 Desirable 200-240 Borderline >240 Undesirable Cholesterol in HDL [Mass/Vol] 33 mg/dL Low >40 [place] Comment on above: HDL Guidelines: <40 Undesirable 40-59 Borderline >59 Desirable Cholesterol in LDL [Mass/Vol] 119 mg/dL 0 - 130 mg/dL [place] Comment on above: LDL Guidelines: <100 Desirable 100-129 Near to/above Desirable 130-159 Borderline >159 Undesirable Direct (measured) LDL and calculated LDL are not interchangeable tests. Cholesterol in VLDL [Mass/Vol] NOT REPORTED High 1 - 30 mg/dL [place] Cholesterol.total/C holesterol in HDL [Mass ratio] 6.3 {ratio} High <5 [place] Triglyceride [Mass/Vol] 273 mg/dL High <150 [place] Comment on above: Triglyceride Guidelines: <150 Desirable 150-199 Borderline 200-499 High >499 Very high Based on AHA Guidelines for fasting triglyceride, July 2012. Lipid Profileon 04-18-2020 Cholesterol [Mass/Vol] 207 mg/dL High <200 [facility] Comment on above: Result Comment: Cholesterol Guidelines: <200 Desirable 200-240 Borderline >240 Undesirable Performed By: #### F YURIY, FEBC, VD25, PTHNCA #### [facility] [employer] [address] [place], [place] [id number] Senior Program Analyst: Bobby Flanagan MD #### LULU, RENA, ASHLITB1, AVITAS #### [facility] [address] [place] [address] Senior Program Analyst: Jeffy Benz MD #### CP, GLYHGB, CDP, MG, LIPR #### [facility] [address] [place] [address] Senior Program Analyst: Omari Fisher MD Cholesterol in HDL [Mass/Vol] 33 mg/dL Low >40 [facility] Comment on above: Result Comment: HDL Guidelines: <40 Undesirable 40-59 Borderline >59 Desirable Performed By: #### F YURIY, FEBC, VD25, PTHNCA #### [facility] [employer] [address], [place] [id number] Senior Program Analyst: Bobby Flanagan MD #### LULU, RENA, ASHLITB1, AVITAS #### [facility] [address], [place] [id number] Senior Program Analyst: Jeffy Benz MD #### CP, GLYHGB, CDP, MG, LIPR #### [facility] [address] [place] [address] [place] [address] Senior Program Analyst: Omari Fisher MD Cholesterol in LDL [Mass/Vol] 119 mg/dL Normal 0-130 [facility] Comment on above: Result Comment: LDL Guidelines: <100 Desirable 100-129 Near to/above Desirable 130-159 Borderline >159 Undesirable Direct (measured) LDL and calculated LDL are not interchangeable tests. Performed By: #### F ABDULKADIR YAN, VD25, PTHNCA #### [address] [id number] Senior Program Analyst: Bobby Flanagan MD #### LULU, RENA, AVITB1, AVITAS #### [facility] [address] [place] [address] Senior Program Analyst: Jeffy Benz MD #### CP, GLYHGB, CDP, MG, LIPR #### [facility] [address] [place] [address] [place] [address] Senior Program Analyst: Omari Fisher MD Cholesterol.total/C holesterol in HDL [Mass ratio] 6.3 {ratio} High <5 [facility] Comment on above: Performed By: #### F YURIY, FEBC, VD25, PTHNCA #### [facility] [address] [place] [address] Senior Program Analyst: Bobby Flanagan MD #### AZJustin, RENA, AVITB1, AVITAS #### [facility] [address] [place], [place] [id number] Senior Program Analyst: Jeffy Benz MD #### CP, GLYHGB, CDP, MG, LIPR #### [facility] [address] [place] [address] Senior Program Analyst: Omari Fisher MD Triglyceride [Mass/Vol] 273 mg/dL High <150 [facility] Comment on above: Result Comment: Triglyceride Guidelines: <150 Desirable 150-199 Borderline 200-499 High >499 Very high Based on AHA Guidelines for fasting triglyceride, July 2012. Performed By: #### F ABDULKADIR YAN, VD25, PTHNCA #### [facility] [address], [place] [id number] Senior Program Analyst: Bobby Flanagan MD #### RENA LAWSON AVITB1, NATY #### [facility] [address] [place] [address] Senior Program Analyst: Jeffy Benz MD #### CP, GLYHGB, CDP, MG, LIPR #### [address] [place] [address] Senior Program Analyst: Omari Fisher MD Cholesterol in VLDL [Mass/Vol] NOT REPORTED Normal 11-10 [facility] Comment on above: Performed By: #### F ABDULKADIR YAN, VD25, PTHNCA #### [facility] [address], [place] [phone] Senior Program Analyst: Bobby Flanagan MD #### RENA LAWSON AVITB1, NATY #### [facility] [address] [place] [address] Senior Program Analyst: Jeffy Benz MD #### CP, GLYHGB, CDP, MG, LIPR #### [address] [place] [address] Senior Program Analyst: Omari Fisher MD Magnesiumon 04-18-2020 Magnesium [Mass/Vol] 2.1 mg/dL Normal 1.6-2.6 [facility] Comment on above: Performed By: #### F YURIY, FEBC, VD25, PTHNCA #### [employer] [address] [place] [address] Senior Program Analyst: Bobby Flanagan MD #### RENA LAWSON AVITB1, NATY #### [facility] [address] [place] [address] Senior Program Analyst: Jeffy Benz MD #### CP, GLYHGB, CDP, MG, LIPR #### [facility] [address] [place] [address] Senior Program Analyst: Omari Fisher MD Magnesium [Mass/Vol] 2.1 mg/dL 1.6 - 2.6 mg/dL [place], [place] Metabolic Panelon 04-18-2020 GFR/1.73 sq M predicted among non-blacks MDRD (S/P/Bld) [Vol rate/Area] [place], [place] Comment on above: Average GFR for 30-3 9 years old: 107 mL/min/1.73sq m Chronic Kidney Disease: <60 mL/min/1.73sq m Kidney failure: <15 mL/min/1.73sq m eGFR calculated using average adult body mass. Additional eGFR calculator available at: http://www.[employer]/multiple_crcl_2012.htm Stage 1: Some kidney damage normal GFR Stage 2: Mild kidney damage GFR 60-89 Stage 3: Moderate kidney damage GFR 30-59 Stage 4: Severe kidney damage GFR 15-29 Stage 5: Severe kidney damage GFR <15 ESRD - chronic treatment by dialysis or transplant Otheron 04-18-2020 Interpretation and review of laboratory results Abnormal [place], [place] PTH, Intacton 04-18-2020 PTH, Intact 54.97 pg/mL Normal 15.0-65.0 [facility] Comment on above: Result Comment: SAMP LES FROM PATIENTS ROUTINELY RECEIVING HIGH DOSE BIOTIN THERAPY MAY SHOW FALSELY DEPRESSED RESULTS. ADDITIONAL INFORMATION MAY BE REQUIRED FOR DIAGNOSIS. Performed By: #### F YURIY, FEBC, VD25, PTHNCA #### [facility] [employer] [address], [place] [id number] Senior Program Analyst: Bobby Flanagan MD #### AZJustin, RENA, AVITB1, NATY #### [facility] [address] [place] [address] Senior Program Analyst: Jeffy Benz MD #### CP, GLYHGB, CDP, MG, LIPR #### [facility] [address] [address] Senior Program Analyst: Omari Fisher MD Pth Intact 54.97 pg/mL 15 - 65 pg/mL [place], [place] Comment on above: SAMPLES FROM PATIENT S ROUTINELY RECEIVING HIGH DOSE BIOTIN THERAPY MAY SHOW FALSELY DEPRESSED RESULTS. ADDITIONAL INFORMATION MAY BE REQUIRED FOR DIAGNOSIS. T4, Freeon 04-18-2020 Interpretation and review of laboratory results Abnormal [place], [place] Thyroxine, Free 0.90 ng/dL Low 0.93 - 1.7 ng/dL [place] TSH without Reflexon 020 TSH Qn 1.74 m[IU]/L [place], [place] Thyroid Stim. Horm.on 2019 TSH Qn 1.74 m[IU]/L Normal 0.30-5.00 [facility] Comment on above: Performed By: #### D AU #### [address] [place] [address] Senior Program Analyst: Omari Fisher MD Thyroxine, Freeon 04-18-2020 Thyroxine, Free 0.90 ng/dL Low 0.93-1.70 [facility] Comment on above: Performed By: #### D AU #### [facility] [address] [place] [address] [place] [address] Senior Program Analyst: Omari Fisher MD Vitamin B12 & Folateon 04-18 Cobalamin (Vitamin B12) [Mass/Vol] 324 pg/mL 232 - 1245 pg/mL [place], [place] Folate 14.3 ng/mL >4.8 [place], [place] Vitamin D 25 Hydroxyon 04-18 Interpretation and review of laboratory results Abnormal [facility] [place], [place] Vit D, 25-Hydroxy 22.6 ng/mL Low 30 - 100 ng/mL [facility], [place] Comment on above: Reference Range: Vitamin D status Range Deficiency <20 ng/mL Mild Deficiency 20-30 ng/mL Sufficiency 30-100 ng/mL Toxicity >100 ng/mL Vitamin D 25 OHon 04-18-2020 Vitamin D 25 [place] 22.6 ng/mL Low 30.0-100.0 [facility] Comment on above: Result Comment: Reference Range: Vitamin D status Range Deficiency <20 ng/mL Mild Deficiency 20-30 ng/mL Sufficiency 30-100 ng/mL Toxicity >100 ng/mL Performed By: #### D AU #### [facility] [address] [place] [address] Senior Program Analyst: Omari Fisher MD Basic Metabolic Panel 0 Anion gap molar conc 13 mmol/L Normal 10-20 [facility] Comment on above: Performed By: #### 1 [id number] #### [facility] [address] [place] [address] Calcium mass conc 9.6 mg/dL Normal 8.6-10.3 [facility] Comment on above: Performed By: #### 1 [id number] #### [facility] [address] [place] [address] Chloride molar conc 104 mmol/L Normal 98-107 [facility] Comment on above: Performed By: #### 1 [id number] #### [facility] [address] [place] [address] Creatinine mass conc 0.83 mg/dL Normal 0.50-1.05 [facility] Comment on above: Performed By: #### 1 [id number] #### [facility] [address] [place] [address] GFR/1.73 sq M.predicted MDRD vol rate/area mL/min/{1.73_m2} Normal [facility] Comment on above: Result Comment: Inte rpretation for Chronic Kidney Disease: Stages 1&2 >60 Healthy or potential kidney damage. Mild decrease of GFR. Stage 3 30-59 Moderate decrease of GFR. Stage 4 15-29 Severe decrease of GFR. Stage 5 <15 Kidney failure or on dialysis. Performed By: #### 1 [id number] #### [facility] [address] [place] [address] Glucose mass conc 74 mg/dL Normal 70-100 [facility] Comment on above: Performed By: #### 1 [id number] #### [facility] [address] [place] [address] HCO3 molar conc (Bld) 26 mmol/L Normal 21-32 [facility] Comment on above: Performed By: #### 1 [id number] #### [facility] [address] [place] [address] Potassium molar conc 3.6 mmol/L Normal 3.5-5.1 [facility] Comment on above: Performed By: #### 1 [id number] #### [facility] [address] [place] [address] Sodium molar conc 139 mmol/L Normal 136-145 [facility] Comment on above: Performed By: #### 1 [id number] #### [facility] [address] [place] [address] Urea nitrogen mass conc 13 mg/dL Normal 6-23 [facility] Comment on above: Performed By: #### 1 [id number] #### [facility] [address] [place] [address] Urea nitrogen/Creatinine mass ratio 16 mg/mg Normal 5-25 [facility] Comment on above: Performed By: #### 1 [id number] #### [facility] [address] [place] [address] CBCon 12-15-2018 Erythrocyte distribution width Ratio (RBC) 12.6 % Normal 12.0-15.4 [facility] Comment on above: Performed By: #### 2 [id number] #### [facility] [address] [place] [address] Hematocrit Volume Fraction (Bld) 43.4 % Normal 36.5-46.6 [facility] Comment on above: Performed By: #### 2 [id number] #### [facility] [address] [place] [address] Hemoglobin mass conc (Bld) 14.2 g/dL Normal 11.8-15.3 [facility] Comment on above: Performed By: #### 2 [id number] #### [facility] [address] [place] [address] MCH Entitic mass (RBC) 30.3 pg Normal 27.5-33.0 [facility] Comment on above: Performed By: #### 2 [id number] #### [facility] [address] [place] [address] MCHC mass conc (RBC) 32.7 g/dL Normal 30.1-35.0 [facility] Comment on above: Performed By: #### 2 [id number] #### [facility] [address] [place] [address] MCV Entitic volume (RBC) 92.5 fL Normal 85.4-100.0 [facility] Comment on above: Performed By: #### 2 [id number] #### [facility] [address] [place] [address] NRBC Absolute 0.00 10*3/uL Normal [facility] Comment on above: Performed By: #### 2 [id number] #### [facility] [address] [place] [address] NRBC Automated 0.0 /100{WBCs} Normal [facility] Comment on above: Performed By: #### 2 [id number] #### [facility] [address] [place] [address] Platelet mean volume Entitic volume (Bld) 10.9 fL Normal 9.9-12.1 [facility] Comment on above: Performed By: #### 2 [id number] #### [facility] [address] [place] [address] Platelets #/vol (Bld) 199 10*3/uL Normal 155-404 [facility] Comment on above: Performed By: #### 2 [id number] #### [facility] [address] [place] [address] RBC #/vol (Bld) 4.69 10*6/uL Normal 3.85-5.10 [facility] Comment on above: Performed By: #### 2 [id number] #### [facility] [address] [place] [address] RDW SD 42.5 fL Normal 39.3-48.6 [facility] Comment on above: Performed By: #### 2 [id number] #### [facility] [address] [place] [address] WBC #/vol (Bld) 8.4 10*3/uL Normal 4.4-9.9 [facility] Comment on above: Performed By: #### 2 [id number] #### [facility] [address] [place] [address] Test (Serum)on Test, Serum Negative Normal [facility] Comment on above: Performed By: #### 3 [id number] #### [facility] [address] [place] [address] CBC With Differentialon 04-12 Basophils #/vol (Bld) 0.05 10*3/uL Normal 0.01-0.07 [facility] Comment on above: Performed By: #### 2 [id number] #### [facility] [address] [place] [address] Basophils/100 WBC (Bld) 0.5 % Normal 0.1-1.2 [facility] Comment on above: Performed By: #### 2 [id number] #### [facility] [address] [place] [address] Eosinophils #/vol (Bld) 0.38 10*3/uL Normal 0.04-0.50 [facility] Comment on above: Performed By: #### 2 [id number] #### [facility] [address] [place] [address] Eosinophils/100 WBC (Bld) 3.7 % Normal 0.0-8.1 [facility] Comment on above: Performed By: #### 2 [id number] #### [facility] [address] [place] [address] Erythrocyte distribution width Ratio (RBC) 12.3 % Normal 12.0-15.4 [facility] Comment on above: Performed By: #### 2 [id number] #### [facility] [address] [place] [address] Hematocrit Volume Fraction (Bld) 44.6 % Normal 36.5-46.6 [facility] Comment on above: Performed By: #### 2 [id number] #### [facility] [address] [place] [address] Hemoglobin mass conc (Bld) 14.8 g/dL Normal 11.8-15.3 [facility] Comment on above: Performed By: #### 2 [id number] #### [facility] [address] [place] [address] Imm Grans Absolute 0.03 10*3/uL Normal 0.00-0.21 [facility] Comment on above: Performed By: #### 2 [id number] #### [facility] [address] [place] [address] Immature granulocytes #/vol (Bld) 0.3 % Normal [facility] Comment on above: Performed By: #### 2 [id number] #### [facility] [address] [place] [address] Lymphocytes #/vol (Bld) 2.31 10*3/uL Normal 0.40-2.84 [facility] Comment on above: Performed By: #### 2 [id number] #### [facility] [address] [place] [address] Lymphocytes/100 WBC (Bld) 22.6 % Normal 15.7-50.5 [facility] Comment on above: Performed By: #### 2 [id number] #### [facility] [address] [place] [address] MCH Entitic mass (RBC) 31.1 pg Normal 27.5-33.0 [facility] Comment on above: Performed By: #### 2 [id number] #### [facility] [address] [place] [address] MCHC mass conc (RBC) 33.2 g/dL Normal 30.1-35.0 [facility] Comment on above: Performed By: #### 2 [id number] #### [facility] [address] [place] [address] MCV Entitic volume (RBC) 93.7 fL Normal 85.4-100.0 [facility] Comment on above: Performed By: #### 2 [id number] #### [facility] [address] [place] [address] Monocytes #/vol (Bld) 0.63 10*3/uL Normal 0.25-0.83 [facility] Comment on above: Performed By: #### 2 [id number] #### [facility] [address] [place] [address] Monocytes/100 WBC (Bld) 6.2 % Normal 4.8-12.7 [facility] Comment on above: Performed By: #### 2 [id number] #### [facility] [address] [place] [address] Neutrophils Absolute 6.84 10*3/uL Normal 1.95-6.85 [facility] Comment on above: Performed By: #### 2 073725 #### [facility] [address] [place] [address] Neutrophils/100 WBC (Bld) 66.7 % Normal 36.8-73.2 [facility] Comment on above: Performed By: #### 2 [id number] #### [facility] [address] [place] [address] NRBC Absolute 0.00 10*3/uL Normal [facility] Comment on above: Performed By: #### 2 [id number] #### [facility] [address] [place] [address] NRBC Automated 0.0 /100{WBCs} Normal [facility] Comment on above: Performed By: #### 2 [id number] #### [facility] [address] [place] [address] Platelet mean volume Entitic volume (Bld) 11.6 fL Normal 9.9-12.1 [facility] Comment on above: Performed By: #### 2 [id number] #### [facility] [address] [place] [address] Platelets #/vol (Bld) 184 10*3/uL Normal 155-404 [facility] Comment on above: Performed By: #### 2 636222 #### [facility] [address] [place] [address] RBC #/vol (Bld) 4.76 10*6/uL Normal 3.85-5.10 [facility] Comment on above: Performed By: #### 2 778372 #### [facility] [address] [place] [address] RDW SD 42.5 fL Normal 39.3-48.6 [facility] Comment on above: Performed By: #### 2 650922 #### [facility] [address] [place] [address] WBC #/vol (Bld) 10.2 10*3/uL High 4.4-9.9 [facility] Comment on above: Performed By: #### 2 760615 #### [facility] [address] [place] [address] Comprehensive Metabolic Pane gisela 05-05-2018 Albumin mass conc 4.5 g/dL Normal 3.4-5.0 [facility] Comment on above: Performed By: #### 1 [id number] #### [facility] [address] [place] [address] Albumin/Globulin mass ratio 1.7 {ratio} Normal 0.9-2.4 [facility] Comment on above: Performed By: #### 1 [id number] #### [facility] [address] [place] [address] ALP enzyme act/vol 80 U/L Normal 45-117 [facility] Comment on above: Performed By: #### 1 [id number] #### [facility] [address] [place] [address] ALT enzyme act/vol 37 U/L Normal 7-45 [facility] Comment on above: Performed By: #### 1 078106 #### [facility] [address] [place] [address] Anion gap molar conc 13 mmol/L Normal 10-20 [facility] Comment on above: Performed By: #### 1 [id number] #### [facility] [address] [place] [address] AST enzyme act/vol 26 U/L Normal 13-39 [facility] Comment on above: Performed By: #### 1 913161 #### [facility] [address] [place] [address] Bilirubin mass conc 0.6 mg/dL Normal 0.0-1.2 [facility] Comment on above: Performed By: #### 1 [id number] #### [facility] [address] [place] [address] Calcium mass conc 9.6 mg/dL Normal 8.6-10.3 [facility] Comment on above: Performed By: #### 1 609151 #### [facility] [address] [place] [address] Chloride molar conc 105 mmol/L Normal 98-107 [facility] Comment on above: Performed By: #### 1 [id number] #### [facility] [address] [place] [address] Creatinine mass conc 0.95 mg/dL Normal 0.50-1.05 [facility] Comment on above: Performed By: #### 1 259152 #### [facility] [address] [place] [address] GFR/1.73 sq M.predicted MDRD vol rate/area mL/min/{1.73_m2} Normal [facility] Comment on above: Result Comment: Inte rpretation for Chronic Kidney Disease: Stages 1&2 >60 Healthy or potential kidney damage. Mild decrease of GFR. Stage 3 30-59 Moderate decrease of GFR. Stage 4 15-29 Severe decrease of GFR. Stage 5 <15 Kidney failure or on dialysis. Performed By: #### 1 [id number] #### [facility] [address] [place] [address] Glucose mass conc 78 mg/dL Normal 70-100 [facility] Comment on above: Performed By: #### 1 522398 #### [facility] [address] [place] [address] HCO3 molar conc (Bld) 26 mmol/L Normal 21-32 [facility] Comment on above: Performed By: #### 1 [id number] #### [facility] [address] [place] [address] Potassium molar conc 3.6 mmol/L Normal 3.5-5.1 [facility] Comment on above: Performed By: #### 1 [id number] #### [facility] [address] [place] [address] Protein mass conc 7.1 g/dL Normal 6.4-8.2 [facility] Comment on above: Performed By: #### 1 [id number] #### [facility] [address] [place] [address] Sodium molar conc 140 mmol/L Normal 136-145 [facility] Comment on above: Performed By: #### 1 570239 #### [facility] [address] [place] [address] Urea nitrogen mass conc 10 mg/dL Normal 6-23 [facility] Comment on above: Performed By: #### 1 599119 #### [facility] [address] [place] [address] Urea nitrogen/Creatinine mass ratio 11 mg/mg Normal 5-25 [facility] Comment on above: Performed By: #### 1 [id number] #### [facility] [address] [place] [address] ESR, Westergrenon 05-05-2018 ESR, Westergren 2 mm/h Normal 0-20 [facility] Comment on above: Performed By: #### 2 159434 #### [facility] [address] [place] [address] Lipid Panelon 05-05-2018 Cholesterol in HDL mass conc 35 mg/dL Abnormal [facility] Comment on above: Result Comment: Age Normal Mod Risk High Risk 5-9 >46 38-46 <38 10-14 >44 40-44 <40 15-19 >42 38-42 <38 Adult >49 Performed By: #### 1 [id number] #### [facility] [address] [place] [address] Cholesterol in LDL mass conc 100 mg/dL Normal <130 [facility] Comment on above: Performed By: #### 1 959143 #### [facility] [address] [place] [address] Cholesterol in VLDL mass conc 72 mg/dL Abnormal <30 [facility] Comment on above: Performed By: #### 1 335382 #### [facility] [address] [place] [address] Cholesterol mass conc 207 mg/dL Abnormal <200 [facility] Comment on above: Performed By: #### 1 [id number] #### [facility] [address] [place] [address] Cholesterol.total/C holesterol in HDL mass ratio 5.9 {ratio} Normal [facility] Comment on above: Performed By: #### 1 379411 #### [facility] [address] [place] [address] Triglyceride mass conc 361 mg/dL Abnormal <150 [facility] Comment on above: Result Comment: 150- 199 Borderline High 200-499 High >500 Very High Performed By: #### 1 [id number] #### [facility] [address] [place] [address] TSHon 05-05-2018 Thyrotropin Qn 1.75 mU/L Normal 0.44-3.98 [facility] Comment on above: Performed By: #### 1 219199 #### [facility] [address] [place] [address] Vitamin D, 25 Hydroxyon 04-12 Vitamin D, 25 Hydroxy 23 ng/mL Abnormal [facility] Comment on above: Result Comment: DEFI CIENCY <20 INSUFFICIENCY 20-29 OPTIMUM LEVEL 30-80 POSSIBLE TOXICITY >80 Performed By: #### V ITD #### [facility] [address] [place] [address] SPINE CERVICAL MIN 4 VIEWSon 05-03-2018 SPINE CERVICAL MIN 4 VIEWS DATE OF EXAM: May 03 2018 12:05PM CLINICAL HISTORY/ Patient Name: BOO BO STUDY: SPINE CERVICAL MIN 4 VIEWS; 05/03/2018 12:05 pm INDICATION: NECK PAIN. COMPARISON: None. ACCESSION NUMBER(S): [id number] ORDERING CLINICIAN: NATE HERRON FINDINGS: The vertebral alignment is maintained and the vertebra are normal in height. The discs are maintained in height. The prevertebral soft tissues are not thickened. The posterior elements are intact. CONCLUSION: IMPRESSION: Negative Normal [facility] Vital Signs Date Time Vital Sign Value Performing Clinician Facility 12-04-2022 09:10-0500 Body height 170.18 cm Annette Navarroault Other [facility] Other 12-04-2022 09:10-0500 Body mass index (BMI) [Ratio] 46.98 kg/m2 Annette Homer Other [employer] Other 12-04-2022 09:10-0500 Body temperature 98.7 [degF] Annette Homer Other [employer] Other 12-04-2022 09:10-0500 Body weight 136.08 kg Annette Homer Other [employer] Other 12-04-2022 09:10-0500 Diastolic blood pressure 78 mm[Hg] Annette Homer Other [employer] Other 12-04-2022 09:10-0500 Respiratory rate 18 /min Annette Homer Other [employer] Other 12-04-2022 09:10-0500 SaO2% (BldA) [Mass fraction] 97 % Annette Homer Other [employer] Other 12-04-2022 09:10-0500 Systolic blood pressure 127 mm[Hg] Annettebi Strickland Other [employer] Other 08-06-2022 10:05-0400 Body height 170.18 cm Liliana Jollymond Other [employer] Other 08-06-2022 10:05-0400 Body mass index (BMI) [Ratio] 46.98 kg/m2 Liliana Shelbie Other [employer] Other 08-06-2022 10:05-0400 Body temperature 97.8 [degF] Liliana Shelbie Other [employer] Other 08-06-2022 10:05-0400 Body weight 136.08 kg Liliana Shelbie Other [employer] Other 08-06-2022 10:05-0400 Diastolic blood pressure 89 mm[Hg] Liliana Shelbie Other [employer] Other 08-06-2022 10:05-0400 Respiratory rate 18 /min Liliana Shelbie Other [employer] Other 08-06-2022 10:05-0400 SaO2% (BldA) [Mass fraction] 97 % Liliana Shelbie Other [employer] Other 08-06-2022 10:05-0400 Systolic blood pressure 146 mm[Hg] Liliana Shelbie Other [employer] Other 03-16-2022 14:15-0400 Body height 170.18 cm Annette Strickland Other [employer] Other 03-16-2022 14:15-0400 Body mass index (BMI) [Ratio] 47.29 kg/m2 Annette Strickland Other [employer] Other 03-16-2022 14:15-0400 Body temperature 97.7 [degF] Annette Strickland Other [employer] Other 03-16-2022 14:15-0400 Body weight 136.99 kg Annette Strickland Other [employer] Other 03-16-2022 14:15-0400 Diastolic blood pressure 85 mm[Hg] Annette Strickland Other [employer] Other 03-16-2022 14:15-0400 Respiratory rate 18 /min Annette Strickland Other [employer] Other 03-16-2022 14:15-0400 SaO2% (BldA) [Mass fraction] 99 % Annette Strickland Other [employer] Other 03-16-2022 14:15-0400 Systolic blood pressure 136 mm[Hg] Annette Strickland Other [employer] Other 09-29-2021 10:45-0500 Body height 170.18 cm Annette Strickland Other [employer] Other 09-29-2021 10:45-0500 Body mass index (BMI) [Ratio] 46.82 kg/m2 Annette Strickland Other [employer] Other 09-29-2021 10:45-0500 Body temperature 98.9 [degF] Annette Strickland Other [employer] Other 09-29-2021 10:45-0500 Body weight 135.63 kg Annette Strickland Other [employer] Other 09-29-2021 10:45-0500 Respiratory rate 18 /min Annette Strickland Other [employer] Other 09-29-2021 10:45-0500 SaO2% (BldA) [Mass fraction] 97 % Annette Strickland Other [employer] Other 09-15-2021 12:10-0500 Body height 170.18 cm Linda Ginty Other [employer] Other 09-15-2021 12:10-0500 Body mass index (BMI) [Ratio] 47.14 kg/m2 Linda Ginty Other [employer] Other 09-15-2021 12:10-0500 Body temperature 98.1 [degF] Linda Ginty Other [employer] Other 09-15-2021 12:10-0500 Body weight 136.53 kg Linda Ginty Other [employer] Other 09-15-2021 12:10-0500 Diastolic blood pressure 68 mm[Hg] Linda Ginty Other [employer] Other 09-15-2021 12:10-0500 Respiratory rate 18 /min Linda Ginty Other [employer] Other 09-15-2021 12:10-0500 SaO2% (BldA) [Mass fraction] 98 % Linda Ginty Other [employer] Other 09-15-2021 12:10-0500 Systolic blood pressure 138 mm[Hg] Linda Baires Other [employer] Other 09-28-2020 10:15-0500 BP Diastolic 86 mm[Hg] [employer]ato [employer] [place] 09-28-2020 10:15-0500 BP Systolic 125 mm[Hg] Fortunato [place] 09-28-2020 10:15-0500 Pulse (Heart Rate) 72 /[facility] [place] 09-28-2020 10:15-0500 Respiratory Rate 16 /min [facility] [place] 09-28-2020 09:59-0500 Body Temperature 97.5 [degF] Fortunato Uriostegui [place] 09-28-2020 09:59-0500 Pulse Oximetry 96 % [facility] [place] 09-28-2020 08:10-0500 BMI (Body Mass Index) 49.72 kg/m2 [place] 09-28-2020 08:10-0500 Body weight 144 kg Fortunato Uriostegui [facility] [place] 09-28-2020 08:10-0500 Height 170.2 cm Fortunato Uriost[place]ui [place] Encounters Encounter Date Encounter Type Care Provider Facility Start: 12-03-2023 End: 12-03-2023 ambulatory LAKEISHA AICHHOLZ Not Available Start: 10-01-2023 End: 10-01-2023 ambulatory LAKEISHA AICHHOLZ Not Available Start: 01-22-2023 End: 01-23-2023 ambulatory CEREAL MAKER LAKEISHA AICHHOLZ Facility:H1 Start: 12-18-2022 End: 12-19-2022 ambulatory CEREAL MAKER LAKEISHA AICHHOLZ Facility:[facility]1 Start: 12-04-2022 End: 12-04-2022 ambulatory Annette Strickland Other [employer] Other Start: 12-04-2022 Office outpatient vi sit 25 minutes Annette Hmoer [facility] Start: 10-28-2022 End: 10-29-2022 ambulatory ALICIA ALAN Facility:[facility]1 Start: 08-06-2022 End: 08-06-2022 ambulatory Liliana Morfin Other [employer] Other Start: 08-06-2022 Office outpatient vi sit 15 minutes Liliana Morfin [facility] Start: 07-18-2022 End: 07-19-2022 ambulatory CEREAL MAKER LAKEISHA ALAN Facility:[facility]1 Start: 07-14-2022 End: 07-15-2022 ambulatory CEREAL MAKER LAKEISHA ALAN Facility:[facility]1 Start: 05-07-2022 End: 05-08-2022 ambulatory CEREAL MAKER LAKEISHA ALAN Facility:[facility]1 Start: 04-23-2022 End: 04-24-2022 ambulatory CEREAL MAKER LAKEISHA ALAN Facility:[facility]1 Start: 04-11-2022 Encounter for genera l adult medical examination without abnormal findings CEREAL MAKER LAKEISHA ALAN [facility] Start: 04-08-2022 End: 04-09-2022 ambulatory CEREAL MAKER LAKEISHA ALAN Facility:[facility]1 Start: 04-08-2022 End: 04-09-2022 Encounter for general adult medical examination without abnormal findings CEREAL MAKER LAKEISHA ALAN Facility:[facility]1 Start: 03-16-2022 End: 03-16-2022 ambulatory Annette Homer Other [employer] Other Start: 03-16-2022 Office outpatient vi sit 15 minutes Annette Homer [facility] Start: 03-15-2022 End: 03-16-2022 ambulatory ALICIA ALAN Facility:[facility]1 Start: 09-29-2021 End: 09-29-2021 ambulatory Annette Homer Other [employer] Other Start: 09-29-2021 Office outpatient vi sit 15 minutes Annette Homer [facility] Start: 09-15-2021 End: 09-15-2021 ambulatory Linda Baires Other [facility] Other Start: 09-15-2021 Office outpatient vi sit 25 minutes Linda Baires [facility] Start: 09-28-2020 End: 09-28-2020 Patient encounter procedure FORTUNATO URIOSTEGUI [facility] Start: 09-28-2020 End: 09-28-2020 Subsequent hospital visit by physician Fortunato Uriostegui Work Phone: [facility] Start: 09-24-2020 End: 09-29-2020 Patient encounter procedure [facility] Start: 09-24-2020 End: 09-28-2020 Subsequent hospital visit by physician Kristian To Pat Screening Schedule [facility] PRE ADMIT Comment on above: Preoperative testing Start: 07-09-2020 End: 07-14-2020 Patient encounter procedure [facility] Start: 07-09-2020 End: 07-13-2020 Subsequent hospital visit by physician Kristian To Pat Screening Schedule [facility] Laboratory Comment on above: Current nicotine use ; Essential hypertension; QUITA (obstructive sleep apnea); Arthritis; Anxiety and depression; Gastroesophageal reflux disease without esophagitis; Obesity, Class III, BMI 40-49.9 (morbid obesity) ([facility]); Fibromyalgia Preop testing Start: 04-18-2020 End: 04-19-2020 Patient encounter procedure FORTUNATO Kunal [facility] Start: 04-18-2020 End: 04-18-2020 Subsequent hospital visit by physician Kristian Lab Drawing Room [facility] Laboratory Comment on above: Essential hypertensi on; QUITA (obstructive sleep apnea); Arthritis; Anxiety and depression; Gastroesophageal reflux disease without esophagitis; Obesity, Class III, BMI 40-49.9 (morbid obesity) ([facility]); Fibromyalgia; Obstructive sleep apnea; Morbid obesity with BMI of 45.0-49.9, adult ([facility]) Start: 12-17-2018 End: 12-17-2018 Patient encounter procedure LETICIA RILEY Facility:[facility] Start: 12-15-2018 Patient encounter procedure LETICIA RILEY Facility: Start: 06-01-2018 Patient encounter procedure NATE HERRON Facility:[facility] Start: 05-05-2018 Patient encounter procedure NATE HERRON Facility:[id number] Start: 05-03-2018 Patient encounter procedure NATE HERRON Facility:[id number] Start: 05-03-2018 Patient encounter Sam Momin lity:[id number] Procedures Date Procedure Procedure Detail Performing Clinician Start: 09-28-2020 DISCHARGE PATIENT JABARI URIOSTEGUI Start: 09-28-2020 Level iv surg pathol ogy gross&microscopic exam FORTUNATO MAURILIO Start: 09-28-2020 Continuous pulse oximetry FORTUNATO URIOSTEGUI Start: 09-28-2020 INITIATE OXYGEN THER APY PROTOCOL FORTUNATO MAURILIO Start: 09-28-2020 BEDREST FORTUNATO PERERA Start: 09-28-2020 ENCOURAGE DEEP BREAT MARY AND COUGHING FORTUNATO URIOSTEGUI Start: 09-28-2020 NOTIFY PHYSICIAN (SPECIFY) FORTUNATO URIOSTEGUI Start: 09-28-2020 NURSING COMMUNICATION Raeann URIOSTEGUI Start: 09-28-2020 VITAL SIGNS FORTUNATO PERERA Start: 09-24-2020 COVID-19 FORTUNATO PERERA Start: 09-24-2020 COVID-19 Moises rubio Work Phone: Start: 07-09-2020 Drug screen class list a FORTUNATO MAURILIO Start: 07-09-2020 COVID-19 AMBULATORY GRE GORY URIOSTEGUI Start: 07-09-2020 Assay of nicotine JABARI URIOSTEGUI Start: 07-09-2020 Drug screen class list a Maya Neftaly Bender Work Phone: Start: 07-09-2020 COVID-19 AMBULATORY [place] Dawn Start: 04-18-2020 Cyanocobalamin vitamin b-12 FORTUNATO MAURILIO Start: 04-18-2020 25 hydroxy includes fractions if performed FORTUNATO URIOSTEGUI Start: 04-18-2020 Assay of ferritin JABARI URIOSTEGUI Start: 04-18-2020 Assay of free thyroxine FORTUNATO URIOSTEGUI Start: 04-18-2020 Assay of magnesium LUCIAN ALEXANDRAJackeline URIOSTEGUI Start: 04-18-2020 Assay of nicotine JABARI URIOSTEGUI Start: 04-18-2020 Assay of parathormone G FRANCISCOREHANA URIOSTEGUI Start: 04-18-2020 Assay of thiamine-vi tamin b-1 FORTUNATO URIOSTEGUI Start: 04-18-2020 Assay of thyroid stimulating hormone tsh FORTUNATO URIOSTEGUI Start: 04-18-2020 Assay of vitamin a LUCIAN URIOSTEGUI Start: 04-18-2020 Assay of zinc FORTUNATO Lina HAMLINALEX Start: 04-18-2020 Blood count complete auto&auto difrntl wbc FORTUNATO URIOSTEGUI Start: 04-18-2020 Comprehensive metabo lic panel FORTUNATO URIOSTEGUI Start: 04-18-2020 Hemoglobin glycosylated a1c FORTUNATO URIOSTEGUI Start: 04-18-2020 Iron binding capacity G JJ URIOSTEGUI Start: 04-18-2020 Lipid panel FORTUNATO PERERA Start: 04-18-2020 VITAMIN B12 & FOLATE Gr sylvia Uriostegui Work Phone: Start: 04-18-2020 25 hydroxy includes fractions if performed Fortunato Uriostegui Work Phone: Start: 04-18-2020 Assay of ferritin Jabari Uriostegui Work Phone: Start: 04-18-2020 Assay of free thyroxine Fortunato Kunal Maurilio Work Phone: Start: 04-18-2020 Assay of magnesium Lucian Uriostgeui Work Phone: Start: 04-18-2020 Assay of parathormone G jj Uriostegui Work Phone: Start: 04-18-2020 Assay of thyroid stimulating hormone tsh Fortunato Uriostegui Work Phone: Start: 04-18-2020 Blood count complete auto&auto difrntl wbc Fortunato Uriostegui Work Phone: Start: 04-18-2020 Comprehensive metabo lic panel Fortunato Uriostegui Work Phone: Start: 04-18-2020 Hemoglobin glycosylated a1c Fortunato Uriostegui Work Phone: Start: 04-18-2020 Iron binding capacity Raeann Uriostegui Work Phone: Start: 04-18-2020 Lipid panel Fortunato Uriostegui Work Phone: Plan of Treatment Date Care Activity Detail Author Start: 04-18-2021 Creatinine measurement Creatinine monitoring [place] Start: 04-18-2021 Potassium monitoring Potassium monitoring [place] Start: 11-21-2020 End: 11-21-2020 Office Visit 11/21/2020 Office Visit Bariatrics Fortunato Uriostegui, DO [address] [place] [phone] [facility] Start: 10-24-2020 End: 10-24-2020 Office Visit 10/24/2020 Office Visit Bariatrics Maya Bender LITHOGRAPHIC PROOFER APPRENTICE - CEREAL MAKER [address] [place] [phone] [facility] Start: 08-22-2020 End: 08-22-2020 Office Visit 08/22/2020 Office Visit Bariatrics Maya Bender LITHOGRAPHIC PROOFER APPRENTICE - CEREAL MAKER [address] [facility] [address] [place] [phone] [facility] Start: 08-16-2020 End: 08-16-2020 Nurse Only 08/16/2020 Nurse Only Bariatrics [facility] Invasive Bariatric Surg Start: 07-25-2020 End: 07-25-2020 Office Visit 07/25/2020 Office Visit Bariatrics Maya Bender LITHOGRAPHIC PROOFER APPRENTICE - CEREAL MAKER [address] [place] [phone] [facility] Start: 07-13-2020 End: 07-13-2020 Hospital Encounter [facility] [place] Comment on above: EGD ESOPHAGOGASTRODUODENOSCOPY Start: 07-12-2020 End: 07-12-2020 Nurse Only 07/12/2020 Nurse Only Bariatrics [facility] Min Invasive Bariatric Surg Start: 06-20-2020 End: 06-20-2020 Office Visit 06/20/2020 Office Visit Bariatrics Maya Bender LITHOGRAPHIC PROOFER APPRENTICE - CEREAL MAKER [address] [place] [phone] [facility] Start: 06-12-2020 Influenza vaccination Flu vaccine (#1) [place] Start: 05-23-2020 End: 05-23-2020 Office Visit 05/23/2020 Office Visit Bariatrics Fortunato Uriostegui DO [address] [facility] [address] [place] [phone] [facility] Start: 2008 Screening for malignant neoplasm of cervix Cervical cancer screen [place], [place] Start: 2006 DTaP/Tdap/Td vaccine (1 - Tdap) DTaP/Tdap/Td vaccine (1 - Tdap) [place] Start: 2002 HIV screening HIV screen [place] Start: 1993 Pneumococcal 0-64 years Vaccine (1 of 1 - PPSV23) Pneumococcal 0-64 years Vaccine (1 of 1 - PPSV23) [place] Start: 1988 Varicella vaccine (1 of 2 - 2-dose childhood series) Varicella vaccine (1 of 2 - 2-dose childhood series) [place] Start: 1987 Creatinine measurement Creatinine monitoring [place] Start: 1987 Potassium monitoring Potassium monitoring [place] End: 04-18-2020 Nicotine, Blood Nicotine, Blood Lab Routine Essential hypertension QUITA (obstructive sleep apnea) Arthritis Anxiety and depression Gastroesophageal reflux disease without esophagitis Obesity, Class III, BMI 40-49.9 (morbid obesity) (HCC) Fibromyalgia 1 Occurrences starting 04/18/2020 until 04/18/2020 [place] Comment on above: 1 Occurrences starting 04/18/2020 until 04/18/2020 Nicotine, Blood [place], [place] End: 07-09-2020 Nicotine, Blood Nicotine, Blood Lab Routine Current nicotine use 1 Occurrences starting 07/09/2020 until 07/09/2020 [place] Comment on above: 1 Occurrences starting 07/09/2020 until 07/09/2020 Oxygen therapy [Minimum Data Set ] Initiate Oxygen Therapy Protocol Respiratory Care Routine Daily until discontinued starting 09/28/2020 [place] Comment on above: Daily until discontinued starting 2019 Surgical Pathology Surgical Path ology Lab Routine Release Upon Ordering for 1 Occurrences starting 09/28/2020 [place] Comment on above: Release Upon Ordering for 1 Occurrences starting 09/28/2020 End: 04-18-2020 Vitamin A Vitamin A Lab Routine Obstructive sleep apnea Morbid obesity with BMI of 45.0-49.9, adult (HCC) 1 Occurrences starting 04/18/2020 until 04/18/2020 [place] Comment on above: 1 Occurrences starting 04/18/2020 until 04/18/2020 Vitamin A Vitamin A Lab Ro utine Obstructive sleep apnea Morbid obesity with BMI of 45.0-49.9, adult (HCC) 04/18/2020 10:16 AM EDT [place] End: 04-18-2020 Vitamin B1 Vitamin B1 Lab Routine Obstructive sleep apnea Morbid obesity with BMI of 45.0-49.9, adult (HCC) 1 Occurrences starting 04/18/2020 until 04/18/2020 [place] Comment on above: 1 Occurrences starting 04/18/2020 until 04/18/2020 Vitamin B1 Vitamin B1 Lab R outine Obstructive sleep apnea Morbid obesity with BMI of 45.0-49.9, adult (HCC) 04/18/2020 10:16 AM EDT [place] End: 04-18-2020 Zinc Zinc Lab Routine Obstructive sleep apnea Morbid obesity with BMI of 45.0-49.9, adult (HCC) 1 Occurrences starting 04/18/2020 until 04/18/2020 [place] Comment on above: 1 Occurrences starting 04/18/2020 until 04/18/2020 Zinc Zinc Lab Routine Obstructive sleep apnea Morbid obesity with BMI of 45.0-49.9, adult (HCC) 04/18/2020 10:16 AM EDT [place] Payers Date Payer Category Payer Unknown [facility] [employer] xxxxxxxxxxx 2020-Present [phone] CLAIMS DEPARTMENT [address] [place] [address] xxxxxxxxxxx [id number] 1987 Unknown [id number] [id number] 1987 Unknown [id number] [id number]5 1987 Unknown [id number] 2.16.840.1.493541.3.579.2.355 1987 Unknown [id number] 2.16.840.1.941739.3.579.2.355 1987 Unknown [id number] 2.16.840.1.166268.3.579.2.355 1987 Unknown [id number] 2.16.840.1.935039.3.579.2.173 1987 Unknown [id number] 2.16.840.1.998582.3.579.2.173 1987 Unknown [id number] 2.16.840.1.964841.3.579.2.173 1987 Unknown [id number] 2.16.840.1.496405.3.579.2.173 1987 Unknown [id number] 2.16.840.1.409810.3.579.2.175 1987 Unknown [id number] 2.16.840.1.214734.3.579.2.593 1987 Unknown [id number] 2.16.840.1.714574.3.579.2.593 1987 Unknown [id number] 2.16.840.1.510115.3.579.2.593 1987 Unknown [id number] 2.16.840.1.463100.3.579.2.593 1987 Unknown [id number] 2.16.840.1.036712.3.579.2.593 1987 Unknown [id number] 2.16.840.1.702177.3.579.2.593 1987 Unknown [id number] 2.16.840.1.528629.3.579.2.593 1987 Unknown [id number] 2.16.840.1.354944.3.579.2.593 1987 Unknown [id number] 2.16.840.1.183116.3.579.2.593 1987 Unknown [id number] 2.16.840.1.570667.3.579.2.1259 1987 Unknown [id number] 2.16.840.1.363804.3.579.2.1259 1959 Unknown [id number] 1959 Unknown [id number] [id number] Self-pay Self Pay [id number] Social History Date Type Detail Facility Tobacco smoking stat [facility] Unknown if ever smoked [facility] Start: 1985 Sex Assigned At Female F [facility] Start: 04-18-2020 End: 06-20-2020 Tobacco smoking status NHIS Current every day smoker [place] Start: 04-18-2020 End: 09-28-2020 Alcohol intake Current drinker of alcohol (finding) [place] Start: 03-23-2020 History SDOH Alcohol Frequency 2 [place] Start: 03-23-2020 Alcohol Comment yearly [place], [place] Sex Assigned At Not on file [place] Exposure to SARS-CoV -2 (event) Unable to assess [place] Start: 06-20-2020 End: 09-28-2020 Tobacco use and exposure Never used [place] Start: 09-28-2020 Tobacco smoking stat [facility] Former smoker [place] End: 07-21-2020 History of tobacco use Current [place]oker [place] Start: 09-28-2020 Cigarettes smoked current (pack per day) - Reported [place] Start: 09-25-2020 Alcohol Comment RARELY [place] Exposure to SARS-CoV -2 (event) Not sure [facility] JEROMY HAMLIN Sex Assigned At Sex Assigned At Bir th [employer] [facility] Other Goals Date Patient Goal Desired Activity /State Evaluation note 12-04-2022 Note Date & Type Note Facility 12-04-2022 Evaluation note Encounter Date Diagnosis Assessment Notes Nov, Sore throat (ICD-10 - J02.9) Nov, Strep pharyngitis (ICD-10 - J02.0) Symptoms presented in office today indicate Strep Throat. Take medications as directed. Saltwater gargles may help with pain and disrupts bacteria and viral infections. Continue tylenol/ibu for general discomfort. Encourage fluids. Symptoms should improve within the next 4-7 days. [facility] [facility] Other Evaluation note 08-06-2022 Note Date & Type Note Facility 08-06-2022 Evaluation note Encounter Date Diagnosis Assessment Notes Jul, Acute otitis externa of both ears, unspecified type (ICD-10 - H60.503) Otitis externa home care material was printed Drink plenty fluids, get plenty of rest. Use eardrops as prescribed. Take Tylenol or Motrin for aches pains or fevers. Follow-up with your family physician if no improvement in 2 to 3 days [facility] Other Evaluation note 03-16-2022 Note Date & Type Note Facility 03-16-2022 Evaluation note Encounter Date Diagnosis Assessment Notes Mar, Acute pain of right shoulder (ICD-10 - M25.511) Take medications as directed. Use caution when operating machinery with muscle relaxer as it may cause drowsiness. Alternating heat and ice to area 3-4 times per day. Rest a lot Follow up with primary care if there is no symptom improvement within the next week, sooner if symptoms worsen or new symptoms occur. [facility] Other Evaluation note 09-29-2021 Note Date & Type Note Facility 09-29-2021 Evaluation note Encounter Date Diagnosis Assessment Notes Sep, Contact with and (suspected) exposure to other viral communicable diseases (ICD-10 - Z20.828) Today test was performed in office. Results are currently negative. That does not mean that you will not develop COVID or do not currently have a low viral count of COVID. The rapid test works best if symptoms have been over 72 hours and the results can vary if you are asymptomatic There is a higher chance of false negative results to occur if testing is performed too soon. It is recommended that even if results are negative and you have been exposed to someone that has COVID that you follow current CDC recommendations. These can be found at CDC.GOV. Follow up with primary care provider if symptoms persist or do not improve *VIRAL URI HANOUT GIVEN ON OTC TREATMENTS, FOLLOW UP AND WHEN TO SEEK EMERGENCY TREATMENT Sep, Right acute otitis media (ICD-10 - H66.91) Diarrhea can be caused from several reasons, most often viral in nature; symptoms resolve usually after a few days. Watch for signs and symptoms of dehydration as instructed in handout. Follow diet recommendations given in office today and may try probiotic over the counter or yogurt added to your diet. If no improvement follow up with primary care provider is needed to rule out more complex infections. Sep, Other Additional time spent conducting pre-visit phone call, screening for symptoms, instructions on social distancing, application and removal of PPE, and cleaning of examination room, equipment and supplies was preformed. Patient education given for testing methodology and results. Patient care instructions given in writting by [facility] Care At Home document. [facility] Other Evaluation note 09-15-2021 Note Date & Type Note Facility 09-15-2021 Evaluation note Encounter Date Diagnosis Assessment Notes Sep, Acute otitis externa of right ear, unspecified type (ICD-10 - H60.501) Discussed diagnosis with patient. Use ear drops as prescribed. Discussed proper installation of ear drops, drops should be at room temperature, lie down with affected ear facing up. After instilling drops gently wiggle ear to help drops reach ear canal, lay with affected ear facing up for 3-5 minutes. Supportive care as discussed, increase fluid intake, Tylenol/Motrin as needed for discomfort, warm compress. Avoid putting anything inside the ear such as Q-tips, do not use other OTC ear drops unless directed by a provider. Avoid submerging head underwater, when showering place cotton ball lightly coated with petroleum jelly as ear plug to prevent water from going into ear, if water inside ear after shower may use chairman of the board on lowest cool setting to blow dry. Follow up with PCP or UC if no improvement in the next 2-3 days. Immediate eval for severe ear pain, severe headache, neck pain/stiffness, pain, erythema, or redness behind the ear, fever, N/V, hearing loss, fever, lethargy, or any other new or concerning symptoms. Patient verbalizes understanding and is agreeable to treatment plan [facility] Other History general Narrative - Reported Note Date & Type Note Facility History general Narrative - Reported Type Medical History anxiety Medical History bipolar Medical History hypertension Surgical History bunion surgery 9 yrs Surgical History bunion surgery 12 years Surgical History clogged tear duct 2 years Surgical History laparoscopy Surgical History heart catheterization Hospitalization History pneumonia 18 mos [facility] Other History general Narrative - Reported Note Date & Type Note Facility History general Narrative - Reported Type Medical History anxiety Medical History bipolar Medical History hypertension Medical History hypocalcemia Surgical History bunion surgery 9 yrs Surgical History bunion surgery 12 years Surgical History clogged tear duct 2 years Surgical History laparoscopy Surgical History heart catheterization Hospitalization History pneumonia 18 mos [facility] Other Summary Purpose Family History No Family History Records FoundNo Family History Records FoundNo Family History Records FoundNo Family History Records FoundNo Family History Records FoundNo Family History Records FoundNo Family History Records FoundNo Family History Records Found Advance Directives No Advanced Directives Records FoundDocuments on File Type Date Recorded 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 Advance Directives and Living Will Power of Library Attendant Documents on File Type Date Recorded 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 ACP-Advance Directive ACP-Power of Library Attendant Documents on File Type Date Recorded 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 ACP-Advance Directive ACP-Power of Library Attendant Assessments Diagnosis Essential hypertension Unspecified essential hypertension QUITA (obstructive sleep apnea) Obstructive sleep apnea (adult) (pediatric) Arthritis Arthropathy, unspecified, site unspecified Anxiety and depression Dysthymic disorder Gastroesophageal reflux disease without esophagitis Esophageal reflux Obesity, Class III, BMI 40-49.9 (morbid obesity) ([facility]) Morbid obesity Fibromyalgia Mylagia and myositis, unspecified Obstructive sleep apnea Obstructive sleep apnea (adult) (pediatric) Morbid obesity with BMI of 45.0-49.9, adult ([facility]) Diagnosis Current nicotine use Essential hypertension Unspecified essential hypertension QUITA (obstructive sleep apnea) Obstructive sleep apnea (adult) (pediatric) Arthritis Arthropathy, unspecified, site unspecified Anxiety and depression Dysthymic disorder Gastroesophageal reflux disease without esophagitis Esophageal reflux Obesity, Class III, BMI 40-49.9 (morbid obesity) ([facility]) Morbid obesity Fibromyalgia Mylagia and myositis, unspecified Diagnosis Preop testing Preoperative examination, unspecified Diagnosis Preoperative testing Preoperative examination, unspecified Discharge Instructions * Instructions* Sis Chowdary RN - 09/28/2020 POST-ENDOSCOPY INSTRUCTIONS 1. ACTIVITY No driving, operating machinery, or making important decisions for 24 hours. Resume normal activity after 24 hours. You may return to work after 24 hours. 2. DIET EGD: Resume your usual diet unless specified below. Diet Modification: Regularr 3. MEDICATIONS (Do not consume alcohol, tranquilizers, or sleeping medications for 24 hours unless advised by your physician) Resume your usual medications 4. PHYSICIAN FOLLOW-UP Please continue with your previously scheduled appointments See your primary care physician as planned. 6. NORMAL CHANGES YOU MAY EXPERIENCE AFTER ENDOSCOPY: EGD: Sore throat, some abdominal pain and cramping. 7. CALL YOUR PHYSICIAN IF YOU EXPERIENCE ANY OF THE FOLLOWING A. Passing blood rectally or vomiting blood (color may be red or black) B. Severe abdominal pain or tenderness (that is not relieved by passing air) C. Fever, chills, or excessive sweating D. Persistent nausea or vomiting E. Redness or swelling at the IV site If you have additional questions, PLEASE call your doctor or the [facility] at No alcoholic beverages, no driving or operating machinery, no making important decisions for 24 hours. You may have a normal diet but should eat lightly day of surgery. Drink plenty of fluids. Urinate within 8 hours after surgery, if unable to urinate call your doctor Call your doctor for the following: Chills Temperature greater than 101 Pain that is not tolerable despite taking pain medicine as ordered There is increased swelling, redness or warmth at surgical site There is increased drainage or bleeding from surgical site Do not remove surgical dressing unless instructed to do so by your surgeon documented in this encounter Additional Source Comments INFORMATION SOURCE (unrecogn ized section and content) DATE CREATED AUTHOR 05/05/2018 [facility] DATE CREATED AUTHOR AUTHOR'S ORGANIZ ATION 12/23/2018 [facility] DATE CREATED AUTHOR AUTHOR'S ORGANIZ ATION 09/29/2020 [facility] DATE CREATED AUTHOR AUTHOR'S ORGANIZ ATION 12/03/2020 [facility] DATE CREATED AUTHOR AUTHOR'S ORGANIZ ATION 04/29/2021 Bereket Brown [facility] DATE CREATED AUTHOR AUTHOR'S ORGANIZ ATION 03/17/2022 [facility] DATE CREATED AUTHOR AUTHOR'S ORGANIZ ATION 01/25/2023 [facility] DATE CREATED AUTHOR AUTHOR'S ORGANIZ ATION 12/11/2023 [facility] EPIC Reason for Visit (unrecogniz ed section and content) Status Reason Specialty Diagnoses / Procedures Re ferred By Contact Referred To Contact Diagnoses GERD (gastroesophageal reflux disease) Obesity GERD, OBESITY Procedures MD ESOPHAGOGASTRODUODENOSCOPY TRANSORAL DIAGNOSTIC EGD ESOPHAGOGASTRODUODENOSCOPY- GI UNIT SCHEDULED Fortunato Uriostegui DO [address] [id number] [facility] Ordered Prescriptions (unrec ognized section and content) Prescription Sig Dispensed Refills Start Date End Da te pantoprazole (PROTONIX) 40 MG tablet Take 1 tablet by mouth every morning (before breakfast) 90 tablet 1 09/28/2020 FOR RECORDS PERTAINING TO PATIENTS WHO ARE OR HAVE BEEN ENROLLED IN A CHEMICAL DEPENDENCY/SUBSTANCEABUSE PROGRAM, SOME INFORMATION MAY BE OMITTED. This clinical summary was aggregated from multiple sources. Caution should be exercised in using it in the provision of clinical care. This summary normalizes information from multiple sources, and as a consequence, information in this document may materially change the coding, format and clinical context of patient data. In addition, data may be omitted in some cases. CLINICAL DECISIONS SHOULD BE BASED ON THE PRIMARY CLINICAL RECORDS. [employer] provides no warranty or guarantee of the accuracy or completeness of information in this document.
== END 2023-12-24 09:17 | disposition home or self-care (01) ==
LOC: NM 09:17
PROVIDERS: PCP Nurse Practitioner; Visit Provider Nurse Practitioner
DX: R07.89 Other chest pain (principal)
CPT/HCPCS: 78452; A9500

== ENCOUNTER 2023-12-29 20:18 | Outpatient (REF) | payer OTHER, SELFPAY ==
--- OUTSIDE RECORDS SUMMARY | 2023-12-29 20:22 | XMS_ITS | CCD ---
Author Organization [facility] Care Team Providers Care Route Salesperson Name Role Phone Sam Collier Unavailable Unavailable GOPAL, KAMALESWARY Attending Unavai lable GOPAL, [facility] Primary Care Unavai lable GOPAL, KAMALESWARStephanie Attending Unavai lable GOPAL, [facility] Primary Care Unavai lable GOPAL, ZENOBIAALESPRAVEENA Admitting Unavai lable GOPAL, NATE Attending Unavavanessa labuna HERRON, [facility] Primary Care LETICIA Aly Attending Unavaila ble GOPAL, [facility] Primary Care Unavai lable LETICIA RILEY Admitting Unavaila ble LETICIA RILEY Attending Unavaila ble GOPAL, [facility] Primary Care [facility] Provider [facility] Primary Care Provider [phone] [place]O URIOSTEGUI Referring Unavailable [facility] Primary Care Unavailable MAYA BENDER Referring Unavailable [facility] Primary Care Unavailable HENRY HELMIS E Referring Unavailable [facility] Primary Care Unavailable HENRY HELMIS E Referring Unavailable [facility] Primary Care Unavailable FORTUNATO URIOSTEGUI Admitting Unavailable FORTUNATO URIOSTEGUI Attending Unavailable [facility] Primary Care Unavailable Annette Strickland Unavailable Linda Baires Unavailable Liliana Morfin Unavailable AICHHOLZ, [employer] [place] Admitting Unavailable AICHHOLZ, [employer] AND DIE INSPECTOR [place] Attending Unavailable AICHHOLZ, [facility] [place] Primary Care Unavailable AICHHOLZ, [employer]PECT[employer] [place] Consulting Unavailable AICHHOLZ, [employer] AND [employer] INSPECTOR [place] Admitting Unavailable AICHHOLZ, [employer] AND DIE INSPECTOR [place] Attending Unavailable AICHHOLZ, [employer] INSPECT[facility] [place] Primary Care Unavailable AICHHOLZ, TO[employer] AND DIE INSPECTOR [place] Consulting Unavailable AICHHOLZ, TOOL AND DIE INSPECTOR [place] Admitting Unavailable AICHHOLZ, TOOL AND DIE INSPECTOR [place] Attending Unavailable AICHHOLZ, [employer] AND D[employer] INSPECTOR [place] Primary Care Unavailable AICHHOLZ, [employer] AND DIE INSPECTOR [place] Consulting Unavailable AICHHOLZ, [employer] AND [employer] INSPECT[employer] [place] Primary Care Unavailable NATALI, TAI Admitting Unavailable NATALI, TAI Attending Unavailable NATALI, TAI Consulting Unavailable AICHHOLZ, TOOL AND DIE INSPECTOR [place] Admitting Unavailable AICHHOLZ, TOOL AND DIE INSPECTOR [place] Attending Unavailable AICHHOLZ, [employer] AND D[employer] INSPECTOR [place] Primary Care Unavailable DR GOOD HENSON V Consulting Unavailable AICHHOLZ, TOOL AND DIE INSPECTOR [place] Consulting Unavailable AICHHOLZ, TOOL AND DIE INSPECTOR [place] Admitting Unavailable AICHHOLZ, TOOL AND DIE INSPECTOR [place] Attending Unavailable AICHHOLZ, TOOL AND DIE INSPECTOR [place] Primary Care Unavailable AICHHOLZ, TOOL AND DIE INSPECTOR [place] Consulting Unavailable AICHHOLZ, TOOL AND DIE INSPECTOR [place] Admitting Unavailable AICHHOLZ, TOOL AND DIE INSPECTOR [place] Attending Unavailable AICHHOLZ, TOOL AND DIE INSPECTOR [place] Primary Care Unavailable AICHHOLZ, TOOL AND DIE INSPECTOR [place] Consulting Unavailable AICHHOLZ, TOOL AND DIE INSPECTOR [place] Admitting Unavailable AICHHOLZ, TOOL AND DIE INSPECTOR [place] Attending Unavailable AICHHOLZ, TOOL AND DIE INSPECTOR [place] Primary Care Unavailable AICHHOLZ, TOOL AND DIE INSPECTOR [place] Consulting Unavailable AICHHOLZ, TOOL AND DIE INSPECTOR [place] Admitting Unavailable AICHHOLZ, TOOL AND DIE INSPECTOR [place] Attending Unavailable AICHHOLZ, TOOL AND DIE INSPECTOR [place] Primary Care Unavailable AICHHOLZ, TOOL AND DIE INSPECTOR [place] Consulting Unavailable AICHHOLZ, [place] Attending Unavailable AICHHOLZ, [place] Attending Unavailable Unavailable Unavailable Unavailable Allergies Allergy Classification Reported Allergen(s) Allergy Type Date of Onset Reaction(s) Facility (10 sources) Amoxicillin Drug Allergy 4 Rash, Nausea And Vomiting [place], [place] (10 sources) Latex Propensity to adverse reactions to drug 0 Rash [place] (1 source) Amoxicillin Drug Allergy [facility] (1 source) Latex Drug allergy (disorder) [facility] Medications Current Medications Medication Drug Class(es) [...] / neomycin 3.5 mg/ml / polymyxin b 01099 unt/ml otic suspension (4 sources) Aminoglycoside Antibacterial, Polymyxin-class Antibacterial, Corticosteroid Start: 08-06-2022 Neomycin-Polymyx in-HC 3.5-69349-2 3 drops both ears Three times a day for 7 days Jul, Not-Taking Start: 09-15-2021 Neomycin-Polym yxin-HC 3.5-67367-8 4 drops into affected ear Otic Three [...] 0 04-17-2020 Chronic 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 pyogenes Org specific cx Ql (Throat) Positive OrthoSensor [facility] [employer] [place] Other Quick Strep [facility] [employer] [place] Other PROF CHEM 8 (BAS METB)on Anion gap [Moles/Vol] 13.1 mmol/L Normal [facility] Comment on above: Performed By: #### B MP #### [facility] [address] [address] [address] Claudia Myrick Calcium [Mass/Vol] 9.3 mg/dL Normal 8.5-10.1 [facility] Comment on above: Performed By: #### B MP #### [facility] [address] [address] [address] Claudia Myrick Chloride [Moles/Vol] 102 mmol/L Normal 98-107 [facility] Comment on above: Performed By: #### B MP #### [facility] [address] [address] [address] Claudia Myrick CO2 [Moles/Vol] 25.4 mmol/L Normal 21.0-32.0 [facility] Comment on above: Performed By: #### B MP #### [facility] [address] [address] [address] Claudia Myrick Creatinine [Mass/Vol] 0.75 mg/dL Normal 0.55-1.02 [facility] Comment on above: Performed By: #### B MP #### [facility] [address] [address] [address] Claudia Myrick EGFR-AF MONTENEGRIN >60 Normal >=60 [facility] Comment on above: Performed By: #### B MP #### [facility] [address] [address] [address] Claudia Myrick EGFR-NON AF MONTENEGRIN >60 Normal >=60 [facility] Comment on above: Performed By: #### B MP #### [facility] [address] [address] [address] Claudia Myrick Glucose [Mass/Vol] 90 mg/dL Normal 74-106 [facility] Comment on above: Performed By: #### B MP #### [facility] [address] [address] [address] Claudia Myrick Potassium [Moles/Vol] 4.5 mmol/L Normal 3.5-5.1 [facility] Comment on above: Performed By: #### B MP #### [facility] [address] [address] [address] Claudia Myrick Sodium [Moles/Vol] 136 mmol/L Normal 136-145 [facility] Comment on above: Performed By: #### B MP #### [facility] [address] [address] [address] Claudia Myrick Urea nitrogen [Mass/Vol] 15.0 mg/dL Normal 7.0-18.0 [facility] Comment on above: Performed By: #### B MP #### [facility] [address] [address] [address] Claudia Myrick Urea nitrogen/Creatinine [Mass ratio] 20.0 mg/mg Normal [facility] Comment on above: Performed By: #### B MP #### [facility] [address] [address] [address] Claudia Myrick PROF CHEM 8 (BAS METB)on Anion gap [Moles/Vol] 14.6 mmol/L Normal [facility] Comment on above: Performed By: #### B MP #### [facility] [address] [address] [address] Claudia Myrick Calcium [Mass/Vol] 8.7 mg/dL Normal 8.5-10.1 [facility] Comment on above: Performed By: #### B MP #### [facility] [address] [address] [address] Claudia Myrick Chloride [Moles/Vol] 104 mmol/L Normal 98-107 [facility] Comment on above: Performed By: #### B MP #### [facility] [address] [address] [address] Claudia Myrick CO2 [Moles/Vol] 23.7 mmol/L Normal 21.0-32.0 [facility] Comment on above: Performed By: #### B MP #### [facility] [address] [address] [address] Claudia Myrick Creatinine [Mass/Vol] 1.07 mg/dL Critically high 0.55-1.02 [facility] Comment on above: Performed By: #### B MP #### [facility] [address] [address] [address] Claudia Myrick EGFR-AF MONTENEGRIN >60 Normal >=60 [facility] Comment on above: Performed By: #### B MP #### [facility] [address] [address] [address] Claudia Myrick EGFR-NON AF MONTENEGRIN 58 mL/min/1.73m2 Critically low >=60 [facility] Comment on above: Performed By: #### B MP #### [facility] [address] [address] [address] Claudia Myrick Glucose [Mass/Vol] 129 mg/dL Critically high 74-106 [facility] Comment on above: Performed By: #### B MP #### [facility] [address] [address] [address] Claudia Myrick Potassium [Moles/Vol] 3.2 mmol/L Critically low 3.5-5.1 [facility] Comment on above: Performed By: #### B MP #### [facility] [address] [address] [address] Claudia Myrick Sodium [Moles/Vol] 140 mmol/L Normal 136-145 [facility] Comment on above: Performed By: #### B MP #### [facility] [address] [address] [address] Claudia Myrick Urea nitrogen [Mass/Vol] 9.0 mg/dL Normal 7.0-18.0 [facility] Comment on above: Performed By: #### B MP #### [facility] [address] [address] [address] Claudia Myrick Urea nitrogen/Creatinine [Mass ratio] 8.4 mg/mg Normal [facility] Comment on above: Performed By: #### B MP #### [facility] [address] [address] [address] Claudia Myrick PROF CHEM 8 (BAS METB)on Anion gap [Moles/Vol] 11.1 mmol/L Normal [facility] Comment on above: Performed By: #### B MP #### [facility] [address] [place] [address] Dr. Claudia Myrick Calcium [Mass/Vol] 9.5 mg/dL Normal 8.5-10.1 [facility] Comment on above: Performed By: #### B MP #### [facility] [address] [place] [address] Dr. Claudia Myrick Chloride [Moles/Vol] 104 mmol/L Normal 98-107 [facility] Comment on above: Performed By: #### B MP #### [facility] [address] [place] [address] Dr. Claudia Myrick CO2 [Moles/Vol] 29.9 mmol/L Normal 21.0-32.0 [facility] Comment on above: Performed By: #### B MP #### [facility] [address] [place] [address] Dr. Claudia Myrick Creatinine [Mass/Vol] 1.05 mg/dL Critically high 0.55-1.02 [facility] Comment on above: Performed By: #### B MP #### [facility] [address] [place] [address] Dr. Claudia Myrick EGFR-AF MONTENEGRIN >60 Normal >=60 [facility] Comment on above: Performed By: #### B MP #### [facility] [address] [place] [address] Dr. Claudia Myrick EGFR-NON AF MONTENEGRIN =60 Normal >=60 [facility] Comment on above: Performed By: #### B MP #### [facility] [address] [place] [address] Dr. Claudia Myrick Glucose [Mass/Vol] 122 mg/dL Critically high 74-106 T [facility] Comment on above: Performed By: #### B MP #### [facility] [address] [place] [address] Dr. Claudia Myrick Potassium [Moles/Vol] 3.0 mmol/L Critically low 3.5-5.1 [facility] Comment on above: Performed By: #### B MP #### [facility] [address] [place] [address] Dr. Claudia Myrick Sodium [Moles/Vol] 143 mmol/L Normal 136-145 [facility] Comment on above: Performed By: #### B MP #### [facility] [address] [place] [address] Dr. Claudia Myrick Urea nitrogen [Mass/Vol] 11.0 mg/dL Normal 7.0-18.0 [facility] Comment on above: Performed By: #### B MP #### [facility] [address] [place] [address] Dr. Claudia Myrick Urea nitrogen/Creatinine [Mass ratio] 10.5 mg/mg Normal [facility] Comment on above: Performed By: #### B MP #### [facility] [address] [place] [address] Dr. Claudia Myrick POTASSIUMon 04-23-2022 Potassium [Moles/Vol] 3.2 mmol/L Critically low 3.5-5.1 [facility] Comment on above: Performed By: #### K #### [facility] [address] [place] [address] Dr. Claudia Myrick THYROGLOBULIN ABon Thyroglobulin Antibody <1.0 Normal 0.0-0.9 [facility] Comment on above: Result Comment: Thyr oglobulin Antibody measured by [employer] Methodology Performed By: #### T HYGAB #### [facility] [address] [place] [address] Dr. Claudia Myrick THYROID PEROXIDASE ABon 06-2 Thyroid Peroxidase (TPO) Ab <8 Normal 0-34 [facility] Comment on above: Performed By: #### T POAB #### [facility] [address] [place] [address] Dr. Claudia Myrick CBC AUTO DIFFon 04-08-2022 BASO # 0.1 103/ul Normal 0.0-0.1 [facility] Comment on above: Performed By: #### C BC #### [facility] [address] [place] [address] Dr. Claudia Myrick Basophils/100 WBC (Bld) 0.6 % Normal 0.2-2.0 [facility] Comment on above: Performed By: #### C BC #### [facility] [address] [place] [address] Dr. Claudia Myrick EO # 0.3 103/ul Normal 0.0-0.7 [facility] Comment on above: Performed By: #### C BC #### [facility] [address] [place] [address] Dr. Claudia Myrick Eosinophils/100 WBC (Bld) 4.2 % Normal 0.9-7.0 [facility] Comment on above: Performed By: #### C BC #### [facility] [address] [place] [address] Dr. Claudia Myrick Erythrocyte distribution width (RBC) [Ratio] 12.8 % Normal 11.0-15.0 [facility] Comment on above: Performed By: #### C BC #### [facility] [address] [place] [address] Dr. Claudia Myrick Hematocrit (Bld) [Volume fraction] 42.0 % Normal 36.0-48.0 [facility] Comment on above: Performed By: #### C BC #### [facility] [address] [place] [address] Dr. Claudia Myrick Hemoglobin (Bld) [Mass/Vol] 14.1 g/dL Normal 12.0-16.0 [facility] Comment on above: Performed By: #### C BC #### [facility] [address] [place] [address] Dr. Claudia Myrick IG # 0.05 10e3/ul Critically high 0.00-0.03 [facility] Comment on above: Performed By: #### C BC #### [facility] [address] [place] [address] Dr. Claudia Myrick IG % 0.6 % Critically high 0.0-0.5 [facility] Comment on above: Performed By: #### C BC #### [facility] [address] [place] [address] Dr. Claudia Myrick LYMPH # 1.7 103/ul Normal 1.2-3.8 [facility] Comment on above: Performed By: #### C BC #### [facility] [address] [place] [address] Dr. Claudia Myrick Lymphocytes/100 WBC (Bld) 21.1 % Normal 20.5-60.0 [facility] Comment on above: Performed By: #### C BC #### [facility] [address] [place] [address] Dr. Claudia Myrick MANUAL DIFF REQ NO Normal [facility] Comment on above: Performed By: #### C BC #### [facility] [address] [place] [address] Dr. Claudia Myrick MCH (RBC) [Entitic mass] 30.6 pg Normal 26.7-34.0 [facility] Comment on above: Performed By: #### C BC #### [facility] [address] [place] [address] Dr. Claudia Myrick MCHC (RBC) [Mass/Vol] 33.6 g/dL Normal 29.9-35.2 [facility] Comment on above: Performed By: #### C BC #### [facility] [address] [place] [address] Dr. Claudia Myrick MCV (RBC) [Entitic vol] 91.1 fL Normal 81.0-99.0 [facility] Comment on above: Performed By: #### C BC #### [facility] [address] [place] [address] Dr. Claudia Myrick MONO # 0.6 103/ul Normal 0.3-0.8 [facility] Comment on above: Performed By: #### C BC #### [facility] [address] [address] [address] Claudia Myrick Monocytes/100 WBC (Bld) 7.1 % Normal 1.7-12.0 [facility] Comment on above: Performed By: #### C BC #### [facility] [address] [address] [address] Claudia Myrick NEUT # 5.4 103/ul Normal 1.4-6.5 [facility] Comment on above: Performed By: #### C BC #### [facility] [address] [place] [address] Dr. Claudia Myrick Neutrophils/100 WBC (Bld) 66.4 % Normal 43.0-75.0 [facility] Comment on above: Performed By: #### C BC #### [facility] [address] [place] [address] Dr. Claudia Myrick Platelet mean volume (Bld) [Entitic vol] 11.1 fL Normal 9.5-13.5 [facility] Comment on above: Performed By: #### C BC #### [facility] [address] [place] [address] Dr. Claudia Myrick PLT 213 103/ul Normal 150-450 [facility] Comment on above: Performed By: #### C BC #### [facility] [address] [place] [address] Dr. Claudia Myrick RBC 4.61 106/ul Normal 4.20-5.40 [facility] Comment on above: Performed By: #### C BC #### [facility] [address] [place] [address] Dr. Claudia Myrick WBC 8.2 103/ul Normal 4.0-11.0 [facility] Comment on above: Performed By: #### C BC #### [facility] [address] [place] [address] Dr. Claudia Myrick FREE T3on 04-08-2022 FREE T3 3.34 pg/mlL Normal 2.18-3.98 [facility] Comment on above: Performed By: #### L IPID, FT3, TSH, CMP ####[facility] [id number] [id number] Claudia Myrick FREE T4on 04-08-2022 Free T4 [Mass/Vol] 0.96 ng/dL Normal 0.76-1.46 [facility] Comment on above: Performed By: #### F T4 ####[facility] [address] [place], [place] [address]Dr. Claudia Myrick GLYCOHEMOGLOBIN A1Con 2021 ADA RECOMMENDATION SEE BELOW Normal [facility] Comment on above: Result Comment: ADA RECOMMENDED LIMIT 4.0 - 6.0 ADA THERAPEUTIC TARGET < 7.0 ACTION SUGGESTED > 7.0 Performed By: #### A 1C #### [facility] [address] [address] [address] Claudia Myrick Glucose [Mass/Vol] 108 mg/dL Normal [facility] Comment on above: Performed By: #### A 1C #### [facility] [address] [address] [address] Claudia Myrick HbA1c (Bld) [Mass fraction] 5.4 % Normal 4.5-6.2 [facility] Comment on above: Performed By: #### A 1C #### [facility] [address] [address] [address] Claudia Myrick LIPID PROFILEon 04-08-2022 CHOL-HDL RATIO NORM SEE BELOW Normal [facility] Comment on above: Result Comment: 3.3 - 4.4 LOW RISK 4.4 - 7.1 AVERAGE RISK 7.1 - 11.0 MODERATE RISK >11.0 HIGH RISK Performed By: #### L IPID, FT3, TSH, CMP ####[facility] [address] [id number]. Claudia Myrick Cholesterol [Mass/Vol] 213 mg/dL Critically high <=200 [facility] Comment on above: Performed By: #### L IPID, FT3, TSH, CMP ####[facility] [address] [id number][address] Claudia Myrick Cholesterol in HDL [Mass/Vol] 34 mg/dL Critically low 40-60 [facility] Comment on above: Performed By: #### L IPID, FT3, TSH, CMP ####[facility] [id number] [phone]. Claudia Myrick Cholesterol in LDL [Mass/Vol] 135.6 mg/dL Normal [facility] Comment on above: Performed By: #### L IPID, FT3, TSH, CMP ####[facility] [address] [phone]. Claudia Myrick Cholesterol.total/C holesterol in HDL [Mass ratio] 6.3 {ratio} Normal [facility] Comment on above: Performed By: #### L IPID, FT3, TSH, CMP ####[facility] [address] [address]Dr. Claudia Myrick HDL NORMAL > or = 60 mg/dl - LO W CARDIOVASCULAR RISK <40 mg/dl - HIGH CARDIOVASCULAR RISK Normal [facility] Comment on above: Performed By: #### L IPID, FT3, TSH, CMP ####[facility] [address] [address]Dr. Claudia Myrick LDL CALC NORMAL SEE BELOW Normal [facility] Comment on above: Result Comment: <100 mg/dl OPTIMAL 100 - 129 mg/dl NEAR OR ABOVE OPTIMAL 130 - 159 mg/dl BORDERLINE HIGH 160 - 189 mg/dl HIGH >190 mg/dl VERY HIGH Performed By: #### L IPID, FT3, TSH, CMP ####[facility] [address] [address]Dr. Claudia Myrick Triglyceride [Mass/Vol] 217 mg/dL Critically high <=150 [facility] Comment on above: Performed By: #### L IPID, FT3, TSH, CMP ####[facility] [address] [phone]. Claudia Myrick VLDL CALC 43.4 mg/dL Normal [facility] Comment on above: Performed By: #### L IPID, FT3, TSH, CMP ####[facility] [address] [address]Dr. Claudia Myrick PROF 14(COMP METB)on 06-28-2 022 Albumin [Mass/Vol] 3.6 g/dL Normal 3.4-5.0 [facility] Comment on above: Performed By: #### L IPID, FT3, TSH, CMP ####[facility] [address] [address]Dr. Claudia Myrick Albumin/Globulin [Mass ratio] 1.1 {ratio} Normal [facility] Comment on above: Performed By: #### L IPID, FT3, TSH, CMP ####[facility] [address] [place], [place] [address]Dr. Claudia Myrick ALP [Catalytic activity/Vol] 75 U/L Normal 46-116 [facility] Comment on above: Performed By: #### L IPID, FT3, TSH, CMP ####[facility] [address] [place], [place] [address]Dr. Claudia Myrick ALT [Catalytic activity/Vol] 60 U/L Critically high 14-59 [facility] Comment on above: Performed By: #### L IPID, FT3, TSH, CMP ####[facility] [address] [place], [place] [address]Dr. Claudia Myrick Anion gap [Moles/Vol] 12.1 mmol/L Normal [facility] Comment on above: Performed By: #### L IPID, FT3, TSH, CMP ####[facility] [address] [place], [place] [address]Dr. Claudia Myrick AST [Catalytic activity/Vol] 29 U/L Normal 15-37 [facility] Comment on above: Performed By: #### L IPID, FT3, TSH, CMP ####[facility] [address] [place], [place] [address]Dr. Claudia Myrick Bilirubin [Mass/Vol] 0.6 mg/dL Normal 0.2-1.0 [facility] Comment on above: Performed By: #### L IPID, FT3, TSH, CMP ####[facility] [address] [place], [place] [address]Dr. Claudia Myrick Calcium [Mass/Vol] 8.9 mg/dL Normal 8.5-10.1 [facility] Comment on above: Performed By: #### L IPID, FT3, TSH, CMP ####[facility] [id number] [address]Dr. Claudia Myrick Chloride [Moles/Vol] 103 mmol/L Normal 98-107 [facility] Comment on above: Performed By: #### L IPID, FT3, TSH, CMP ####[facility] [address] [address]Dr. Claudia Myrick CO2 [Moles/Vol] 27.8 mmol/L Normal 21.0-32.0 [facility] Comment on above: Performed By: #### L IPID, FT3, TSH, CMP ####[facility] [id number] [place], [place] [address]Dr. Claudia Myrick Creatinine [Mass/Vol] 0.86 mg/dL Normal 0.55-1.02 [facility] Comment on above: Performed By: #### L IPID, FT3, TSH, CMP ####[facility] [address] [place], [place] [address]Dr. Claudia Myrick EGFR-AF MONTENEGRIN >60 Normal >=60 [facility] Comment on above: Performed By: #### L IPID, FT3, TSH, CMP ####[facility] [address] [place], [place] [address]Dr. Claudia Myrick EGFR-NON AF MONTENEGRIN >60 Normal >=60 [facility] Comment on above: Performed By: #### L IPID, FT3, TSH, CMP ####[facility] [address] [place] [address]Dr. Claudia Myrick Globulin (S) [Mass/Vol] 3.2 g/dL Normal [facility] Comment on above: Performed By: #### L IPID, FT3, TSH, CMP ####[facility] [address] [place] [address]Dr. Claudia Myrick Glucose [Mass/Vol] 114 mg/dL Critically high 74-106 [facility] Comment on above: Performed By: #### L IPID, FT3, TSH, CMP ####[facility] [address] [place] [address]Dr. Claudia Myrick Potassium [Moles/Vol] 2.8 mmol/L Critically low 3.5-5.1 [facility] Comment on above: Result Comment: TEST REPEATED CRITICAL VALUE VERIFIED Performed By: #### L IPID, FT3, TSH, CMP ####[facility] [address] [place] [address]Dr. Claudia Myrick Protein [Mass/Vol] 6.8 g/dL Normal 6.4-8.2 The [facility] Comment on above: Performed By: #### L IPID, FT3, TSH, CMP ####[facility] [address] [place] [address]Dr. Claudia Myrick Sodium [Moles/Vol] 138 mmol/L Normal 136-145 The [facility] Comment on above: Performed By: #### L IPID, FT3, TSH, CMP ####[facility] [address] [place] [address]Dr. Claudia Myrick Urea nitrogen [Mass/Vol] 11.0 mg/dL Normal 7.0-18.0 [facility] Comment on above: Performed By: #### L IPID, FT3, TSH, CMP ####[facility] [address] [place] [address]Dr. Claudia Myrick Urea nitrogen/Creatinine [Mass ratio] 12.8 mg/mg Normal [facility] Comment on above: Performed By: #### L IPID, FT3, TSH, CMP ####[facility] [address] [place] [address]Dr. Claudia Myrick TSHon 04-08-2022 TSH 1.561 uIU/mL Normal 0.358-3.740 [facility] Comment on above: Performed By: #### L IPID, FT3, TSH, CMP #### [facility] [address] [address] [address] Claudia Myrick UA RANDOM W/MICROSCOPICon BACTERIA TRACE Abnormal NONE SEEN [facility] Comment on above: Performed By: #### U AMIC ####[facility] [address] [place] [id number]. Sandiobey Myrick Bilirubin Ql (U) Negative Normal NEGATIVE The [facility] Comment on above: Performed By: #### U AMIC ####[facility] [address] [place] [id number]. Sandiobey Myrick CAST NONE SEEN Normal NONE SEEN [facility] Comment on above: Performed By: #### U AMIC ####[facility] [address] [place] [address]Dr. Sandiobey Myrick Clarity (U) CLEAR Normal CLEAR [facility] Comment on above: Performed By: #### U AMIC ####[facility] [address] [place], [place] [address]Dr. Claudia Myrick Color (U) YELLOW Normal YELLOW [facility] Comment on above: Performed By: #### U AMIC ####[facility] [address] [place], [place] [address]Dr. Claudia Myrick Crystals LM Nom (Urine sed) NONE SEEN Normal NONE SEEN [facility] Comment on above: Performed By: #### U AMIC ####[facility] [address] [place], [place] [address]Dr. Sandiobey Ramez Epithelial cells LM Ql (Urine sed) FEW Abnormal NONE SEEN /RARE [facility] Comment on above: Performed By: #### U AMIC ####[facility] [address] [place], [place] [address]Dr. Claudia Myrick Glucose Ql (U) Negative Normal NEGATIVE The [facility] Comment on above: Performed By: #### U AMIC ####[facility] [address] [place], [place] [address]Dr. Claudia Myrick Hemoglobin Ql (U) Negative Normal NEGATIVE The [facility] Comment on above: Performed By: #### U AMIC ####[facility] [address] [place], [place] [address]Dr. Claudia Myrick Ketones Ql (U) Negative Normal NEGATIVE The [facility] Comment on above: Performed By: #### U AMIC ####[facility] [address] [place] [address]Dr. Claudia Myrick LEUKOCYTES Negative Normal NEGATIVE [facility] Comment on above: Performed By: #### U AMIC ####[facility] [address] [place] [address]Dr. Claudia Myrick MUCOUS NONE SEEN Normal NONE SEEN [facility] Comment on above: Performed By: #### U AMIC ####[facility] [address] [place] [address]Dr. Claudia Ramez Nitrite Ql (U) Negative Normal NEGATIVE The [facility] Comment on above: Performed By: #### U AMIC ####[facility] [address] [place], [place] [address]Dr. Claudia Ramez pH (U) 7.0 [pH] Normal 5-9 [facility] Comment on above: Performed By: #### U AMIC ####[facility] [address] [place], [place] [address]Dr. Claudia Ramez RBC NONE SEEN Abnormal 0-2 [facility] Comment on above: Performed By: #### U AMIC ####[facility] [address] [place], [place] [address]Dr. Claudia Myrick SPEC GRAVITY 1.015 Normal 1.005-<=1.025 The [facility] Comment on above: Performed By: #### U AMIC ####[facility] [address] [place] [address]Dr. Claudia Myrick UA PROTEIN Negative Normal NEGATIVE/ TRACE [facility] Comment on above: Performed By: #### U AMIC ####[facility] [address] [place] [address]Dr. Claudia Ramez Urobilinogen Qn (U) 0.2 {Brendan'U}/dL Normal 0.2 - 1. 0 [facility] Comment on above: Performed By: #### U AMIC ####[facility] [address] [place] [address]Dr. Sandiobey Myrick WBC NONE SEEN Normal NONE SEEN [facility] Comment on above: Performed By: #### U AMIC ####[facility] [address] [place], [place] [address]TcRobert Myrick XR shoulder RT min 2V*on XR shoulder RT min 2V* [address] [address] XRay Report Signed Patient: Boo Bo MR#: [id number] : 1985 Acct:[id number] Age/Sex: 36 / F ADM Date: 03/16/22 Loc: XDUCLY Room: Type: [facility] Attending Dr: Annette MACKENZIE Ordering Provider: ANNETTE [...] ACUTE BONY FINDINGS. Impression dictated by: Delia Kumar M.D.03/16/2022 1:37 PM Dictation Location: [place] [address] Transcribed By: [facility] 03/16/22 1337 Dictated By: Delia Kumar MD 03/16/22 1336 Signed By: 03/16/22 1337 Normal [facility] XR shoulder RT min 2V* [facility] [employer] Other XR shoulder RT min 2V* [facility] [employer] Other XR shoulder RT min 2V* [address] [place] [address] [employer] Other XR shoulder RT min 2V* [place] [address] [facility] [employer] Other XR shoulder RT min 2V* XRay Report [employer] Other XR shoulder RT min 2V* Signed [employer] Other XR shoulder RT min 2V* Patient: Boo Bo MR#: [id number] [employer] Other XR shoulder RT min 2V* : 1985 Acct:[id number] [employer] Other XR shoulder RT min 2V* Age/Sex: 36 / F ADM Date: 03/16/22 [employer] Other XR shoulder RT min 2V* Loc: XDUCLY Room: Type: [facility] [employer] Other XR shoulder RT min 2V* Attending Dr: Annette Strickland [facility] [employer] Other XR shoulder RT min 2V* Ordering Provider: ANNETTE STRICKLAND [facility] [employer] Other XR shoulder RT min 2V* Date of Service: 03/16/22 [employer] Other XR shoulder RT min 2V* XR/XR shoulder RT min 2V*: Acute pain of right shoulder [employer] Other XR shoulder RT min 2V* Cop[facility] [employer] Other XR shoulder RT min 2V* RIGHT SHOULDER - 3 views [employer] Other XR shoulder RT min 2V* CLINICAL HISTORY: Right shoulder pain since pushing off a couch and hearing a pop last week. Pain [employer] Other XR shoulder RT min 2V* radiates down the arm. [employer] Other XR shoulder RT min 2V* COMPARISON: None [employer] Other XR shoulder RT min 2V* AP, Y and Grashey views were obtained. There is no evidence of fracture or dislocation. Minor [employer] Other XR shoulder RT min 2V* degenerative change is present at the acromioclavicular joint and greater tuberosity. There are no [employer] Other XR shoulder RT min 2V* significant soft tissue abnormalities. [employer] Other XR shoulder RT min 2V* XR/XR shoulder RT min 2V* [employer] Other XR shoulder RT min 2V* IMPRESSION: [employer] Other XR shoulder RT min 2V* NO ACUTE BONY FINDINGS. [employer] Other XR shoulder RT min 2V* Impression dictated by: Delia Kumar M.D.03/16/2022 1:37 PM [employer] Other XR shoulder RT min 2V* Dictation Location: [place] [address] [employer] Other XR shoulder RT min 2V* Transcribed By: HARRIS 03/16/22 [facility] [employer] Other XR shoulder RT min 2V* Dictated By: Delia Kumar MD 03/16/22 [facility] [employer] Other XR shoulder RT min 2V* Signed By: [employer] Other XR shoulder RT min 2V* 03/16/22 [facility] [employer] Other COVID Quick Testingon 2020 Result Negative [employer] Other Quick Fluon 09-29-2021 FLUAV Ab CF (S) [Titer] Negative [employer] Other FLUBV Ab CF (S) [Titer] Negative [employer] Other Physician Referralon 021 Physician Referral [phone] [id number] .[id number]:127 Normal [facility] Surgical Pathologyon 020 Surgical Pathology (NOTE) -- Diagnosis -- 1. STOMACH, BIOPSY: - NORMAL GASTRIC MUCOSA. 2. STOMACH, ULCER, BIOPSY: - NORMAL GASTRIC MUCOSA. Pan Rodeny M.D. Electronically Signed Out 10/01/2020 Clinical Information [...] SURGICAL PATHOLOGY CONSULTATION Patient Name: BOO BO [facility] Rec: [id number] Path Number: [id number] [facility] ANATOMIC PATHOLOGY [address] [place] [id number] Normal [facility] Comment on above: Performed By: #### P PPVS #### [address] [id number] Patient Carrier: Bobby Flanagan MD COVID-19on 09-25-2020 SARS-CoV-2 [place], [place] SARS-CoV-2 Not Detected Not Detected [place], [place] Comment on above: The specimen is NEGATIVE for SARS-CoV-2, the novel coronavirus associated with COVID-19. A negative result does not rule out COVID-19. Terrie SARS-CoV-2 for use on the [employer] is a real-time RT-PCR test intended [...] this assay. Fact sheet for Healthcare Providers: https://www.fda.gov/media/895926/download Fact sheet for Patients: https://www.fda.gov/media/729416/download METHODOLOGY: RT-PCR SARS-CoV-2, Rapid [place], [place] Source .NASOPHARYNGEAL SWAB [place], [place] [id number] 09-25-2020 SARS-CoV-2 Not Detected Normal [facility] Comment on above: Result Comment: The specimen is NEGATIVE for SARS-CoV-2, the novel coronavirus associated with COVID-19. A negative result does not rule out COVID-19. Terrie SARS-CoV-2 for use on the Terrie [employer] is a real-time RT-PCR test intended [...] this assay. Fact sheet for Healthcare Providers: https://www.fda.gov/media/628867/download Fact sheet for Patients: https://www.fda.gov/media/239809/download METHODOLOGY: RT-PCR Performed By: #### C OVID #### [place] [address] [place] [address] Patient Carrier: Bobby Flanagan MD [facility] [address] [place] [address] Dr. [place], [place] [id number] Patient Carrier: Good Hernandez MD SARS-CoV-2 [facility] Comment on above: Performed By: #### C OVID #### [address] [address] Patient Carrier: Bobby Flanagan MD [facility] [address] [place] [address] Dr[place], [place] [id number] Patient Carrier: Good Hernandez MD SARS-CoV-2,Rapid [facility] Comment on above: Performed By: #### C OVID #### [address] [address] Patient Carrier: Bobby Flanagan MD [facility] [address] [place] [address] Dr. [place], [place] [id number] Patient Carrier: Good Hernandez MD [id number] 09-24-2020 SARS-CoV-2 Source .NASOPHARYNGEAL SWAB [facility] Comment on above: Performed By: #### C OVID #### [address] [address] Patient Carrier: Bobby Flanagan MD [facility] [address] [place] [address] [address] [id number] Patient Carrier: Good Hernandez MD Nicotineon 07-12-2020 4-GY-Gdpekyud <2 [facility] Comment on above: Performed By: #### A NICOT #### [facility] [address] [place] [address] Patient Carrier: Jeffy Benz MD Cotinine <2 [facility] Comment on above: Performed By: #### A NICOT #### [facility] [address] [place] [address] Patient Carrier: Jeffy Benz MD Nicotine <[address] [facility] Comment on above: Result Comment: (NOT E) [...] positive. Test developed and characteristics determined by [employer]. See Compliance Statement B: [employer] Performed By: [employer] [address] [place] [address] Assistant Professor Of Mathematics: Ashley Price MD Performed By: #### A NICOT #### [facility] [address] [place] [address] Patient Carrier: Jeffy Benz MD [id number] 07-12-2020 SARS-CoV-2 Not Detected Normal Not Detected [facility] Comment on above: Result Comment: (NOT E) This nucleic acid amplification test was developed and its performance characteristics determined by [employer]. Nucleic acid amplification tests include PCR and [...] detected) result in this assay. Performed At: [facility] [address] [place], [place] [id number] Latricia Barrera MD Ph:[phone] Performed By: #### D AU #### [facility] [address] [place] [address] Patient Carrier: Omari Fisher MD COVID-19 Ambulatoryon 2019 SARS-CoV-2, ELVIN Not Detected Not Detected [place], [place] Comment on above: (NOTE) This nucleic acid amplification test was developed and its performance characteristics determined by [employer]. Nucleic acid amplification tests include PCR and [...] detected) result in this assay. Performed At: [facility] [address] [facility] [place] [id number] Latricia Barrera MD Ph:[phone] Drug Scr, Abuse, Uron 2019 Amphetamine(s),Ur Negative Normal [facility] Comment on above: Performed By: #### D AU #### [facility] [address] [place] [address] Patient Carrier: Omari Fisher MD Barbiturate(s),Ur Negative Normal [facility] Comment on above: Performed By: #### D AU #### [facility] [address] [place], [place] [address] Patient Carrier: Omari Fisher MD Base excess Calc (Bld) [Moles/Vol] Negative Normal [facility] Comment on above: Performed By: #### D AU #### [facility] [address] [place] [address] Patient Carrier: Omari Fisher MD Benzodiazepine(s) Negative Normal [facility] Comment on above: Performed By: #### D AU #### [facility] [address] [place], [place] [address] Patient Carrier: Omari Fisher MD Buprenorphrine, Ur Negative Normal [facility] Comment on above: Performed By: #### D AU #### [facility] [address] [place] [address] Patient Carrier: Omari Fisher MD Cannabinoid(s),Ur Negative Normal [facility] Comment on above: Performed By: #### D AU #### [facility] [address] [place] [address] [place] [address] Patient Carrier: Omari Fisher MD Methadone Ql (U) Negative Normal [facility] Comment on above: Performed By: #### D AU #### [facility] [address] [place] [address] Patient Carrier: Omari Fisher MD Methamphetamine, Ur Negative Normal [facility] Comment on above: Performed By: #### D AU #### [facility] [address] [place], [place] [id number] Patient Carrier: Omari Fisher MD Opiate(s), Ur Negative Normal [facility] Comment on above: Performed By: #### D AU #### [facility] [address] [place] [address] Patient Carrier: Omari Fisher MD Oxycodone, Urine Negative Normal NEG [facility] Comment on above: Performed By: #### D AU #### [facility] [address] [place] [address] Patient Carrier: Omari Fisher MD Phencyclidine, Ur Negative Normal [facility] Comment on above: Performed By: #### D AU #### [facility] [address] [place] [address] Patient Carrier: Omari Fisher MD Propoxyphene,Urine Negative Normal NEG [facility] Comment on above: Performed By: #### D AU #### [facility] [address] [place] [address] Patient Carrier: Omari Fisher MD Tricyclic antidepressants Screen Ql (U) Negative Normal [facility] Comment on above: Result Comment: Drug screen results are to be used for medical purposes only. All positive results are unconfirmed. Testing for employment or legal uses should be sent to a reference laboratory for confirmation. Performed By: #### D AU #### [facility] [address] [place] [address] [place] [address] Patient Carrier: Omari Fisher MD Interpretive Info NOT REPORTED Normal [facility] Comment on above: Performed By: #### D AU #### [facility] [address] [place] [address] Patient Carrier: Omari Fisher MD MDMA, Urine NOT REPORTED Normal NEG [facility] Comment on above: Performed By: #### D AU #### [facility] [address] [place], [place] [phone] Patient Carrier: Omari Fisher MD Urine Drug Screenon 07-09-20 20 Amphetamine Screen, Ur Negative NEGATIVE [facility], [place] Barbiturate Screen, Ur Negative NEGATIVE [facility] [place] Benzodiazepine Screen, Urine Negative NEGATIVE [facility] [place] Buprenorphine Urine Negative NEGATIVE [facility] [place] Cannabinoid Scrn, Ur Negative NEGATIVE [facility] [place] Cocaine Metabolite, Urine Negative NEGATIVE [facility] [place] MDMA, Urine NOT REPORTED NEGATIVE [facility] [place] [place] Methadone Screen, Urine Negative NEGATIVE [facility] [place] Methamphetamine, Urine Negative NEGATIVE [facility] [place] Opiates, Urine Negative NEGATIVE [facility] [place] Oxycodone Screen, Ur Negative NEGATIVE [facility] [place] Phencyclidine, Urine Negative NEGATIVE [facility] [place] Propoxyphene, Urine Negative NEGATIVE [facility] [place] Test Information NOT REPORTED [facility] [place] Tricyclic Antidepressants, Urine Negative NEGATIVE [facility] [place] Comment on above: Drug screen results are to be used for medical purposes only. All positive results are unconfirmed. Testing for employment or legal uses should be sent to a reference laboratory for confirmation. Nicotineon 04-21-2020 4-UB-Kmbjtvqq 95 ng/mL [facility] Comment on above: Performed By: #### D AU #### [facility] [address] [place] [address] Patient Carrier: Omari Fisher MD Cotinine 190 ng/mL [facility] Comment on above: Performed By: #### D AU #### [facility] [address] [place] [address] Patient Carrier: Omari Fisher MD Nicotine 15 ng/mL [facility] Comment on above: Result Comment: (NOT E) Consistent with use of a nicotine-containing product within 48 hours of specimen collection. Nicotine is metabolized to cotinine and 0-[id number]-[id number]. INTERPRETIVE INFORMATION: Nicotine and Metabolites, Serum or [...] positive. Test developed and characteristics determined by [employer]. See Compliance Statement B: [employer] Performed By: [employer] [address] [place] [address] Assistant Professor Of Mathematics: Jeffy Benz MD, MS Performed By: #### D AU #### [facility] [address] [place] [address] Patient Carrier: Omari Fisher MD Vitamin B1on 04-21-2020 Vitamin B1 135 nmol/L Normal 70-180 [facility] Comment on above: Result Comment: (NOT E) INTERPRETIVE INFORMATION: Vitamin B1, Whole Blood This assay measures the concentration of thiamine diphosphate (TDP), the primary active form of vitamin B1. Approximately 90 percent of vitamin B1 present in whole blood is TDP. Thiamine and thiamine monophosphate, which comprise the remaining 10 percent, are not measured. Test developed and characteristics determined by [employer]. See Compliance Statement B: [employer] Performed By: [employer] [address] [place] [address] Assistant Professor Of Mathematics: Jeffy Benz MD, MS Performed By: #### D AU #### [address] [place] [address] Patient Carrier: Omari Fisher MD Vitamin Aon 04-20-2020 Interpretation Normal Normal [facility] Comment on above: Result Comment: (NOT E) Test developed and characteristics determined by [employer]. See Compliance Statement B: [employer] Performed By: [employer] [address] [place] [address] Assistant Professor Of Mathematics: Jeffy Benz MD, MS Performed By: #### D AU #### [facility] [address] [place] [address] Patient Carrier: Omari Fisher MD Retinol (Vitamin A) 0.65 mg/L Normal 0.30-1.20 [facility] Comment on above: Performed By: #### D AU #### [facility] [address] [place] [address] Patient Carrier: Omari Fisher MD Retinyl Palmitate 0.03 mg/L Normal 0.00-0.10 [facility] Comment on above: Performed By: #### D AU #### [facility] [address] [place] [address] Patient Carrier: Omari Fisher MD Zinc, Serumon 04-20-2020 Zinc, Serum 94.2 ug/dL Normal 60.0-120.0 [facility] Comment on above: Result Comment: (NOT E) [...] absorption. Test developed and characteristics determined by [employer]. See Compliance Statement B: [email or web address] Performed By: [employer] [address] [place] [id number] Assistant Professor Of Mathematics: Jeffy Benz MD, MS Performed By: #### D AU #### [facility] [address] [place] [address] Patient Carrier: Omari Fisher MD B12/Folate Panelon 0 Cobalamin (Vitamin B12) [Mass/Vol] 324 pg/mL Normal 232-1245 [facility] Comment on above: Performed By: #### B 12FOL #### [facility] [address] [place] [address] Patient Carrier: Bobby Flanagan MD Folic Acid 14.3 ng/mL Normal >4.8 [facility] Comment on above: Performed By: #### B 12FOL #### [facility] [employer] [address] [id number] Patient Carrier: Bobby Flanagan MD CBC Auto Differentialon 07-0 Basophils (Bld) [#/Vol] 0.04 10*3/uL [place] Basophils/100 WBC (Bld) 1 % 0 - 2 % [place] Differential Type NOT REPORTED [place] Eosinophils (Bld) [#/Vol] 0.37 10*3/uL [place] Eosinophils/100 WBC (Bld) 5 % High 1 - 4 % [place] Erythrocyte distribution width (RBC) [Ratio] 12.6 % 11.8 - 14.4 % [place] Hematocrit (Bld) [Volume fraction] 42.8 % 36.3 - 47.1 % [place] Hemoglobin (Bld) [Mass/Vol] 14.2 g/dL 11.9 - 15.1 g/dL [place] Immature granulocytes (Bld) [#/Vol] 0 % 0 [place] Immature granulocytes (Bld) [#/Vol] 10*3/uL [place] Interpretation and review of laboratory results Abnormal [place] Lymphocytes (Bld) [#/Vol] 1.80 10*3/uL [place] Lymphocytes/100 WBC (Bld) 25 % 24 - 43 % [place] MCH (RBC) [Entitic mass] 30.7 pg 25.2 - 33.5 pg [place] MCHC (RBC) [Mass/Vol] 33.2 g/dL 28.4 - 34.8 g/dL [place] MCV (RBC) [Entitic vol] 92.4 fL 82.6 - 102.9 fL [place] Monocytes (Bld) [#/Vol] 0.61 10*3/uL [place] Monocytes/100 WBC (Bld) 8 % 3 - 12 % [place] Platelet mean volume (Bld) [Entitic vol] 11.2 fL 8.1 - 13.5 fL [place] Platelets (Bld) [#/Vol] 201 10*3/uL [place] Platelets (Bld) [#/Vol] NOT REPORTED [place] RBC (Bld) [#/Vol] 4.63 10*6/uL 3.95 - 5.1 1 m/uL [place] RBC morphology finding Nom (Bld) NOT REPORTED [place] Segmented neutrophils/100 WBC (Bld) 61 % 36 - 65 % [place] Segs Absolute 4.41 [place] WBC (Bld) [#/Vol] 0.0 10*3/uL 0.0 per 10 0 WBC [place] WBC (Bld) [#/Vol] 7.3 10*3/uL [place] WBC Morphology NOT REPORTED [place] CBC with Diffon 04-18-2020 Abs. Basophil 0.04 k/uL Normal 0.00-0.20 [facility] Comment on above: Performed By: #### F YURIY, FEBC, VD25, PTHNCA #### [facility] [address] [place] [address] Patient Carrier: Bobby Flanagan MD #### LULU, RENA, ASHLITB1, NATY #### [facility] [address] [place] [address] Patient Carrier: Jeffy Benz MD #### CP, GLYHGB, CDP, MG, LIPR #### [facility] [address] [place] [address] Patient Carrier: Omari Fisher MD Abs.Imm.Granulocyte <0.03 Normal 0.00-0.30 [facility] Comment on above: Performed By: #### F YURIY, FEBC, VD25, PTHNCA #### [facility] [address] [place], [place] [phone] Patient Carrier: Bobby Flanagan MD #### AZN, ANICOT, AVITB1, AVITAS #### [facility] [address], [place] [id number] Patient Carrier: Jeffy Benz MD #### CP, GLYHGB, CDP, MG, LIPR #### [address] [place] [address] Patient Carrier: Omari Fisher MD Abs.Neutrophil (Seg) 4.41 k/uL Normal 1.50-8.10 [facility] Comment on above: Performed By: #### F ABDULKADIR YAN, VD25, PTHNCA #### [address] [id number] Patient Carrier: Bobby Flanagan MD #### AZN, ANICOT, AVITB1, AVITAS #### [facility] [address] [place] [address] Patient Carrier: Jeffy Benz MD #### CP, GLYHGB, CDP, MG, LIPR #### [address] [place] [phone] Patient Carrier: Omari Fisher MD Basophils/100 WBC (Bld) 1 % Normal 0-2 [facility] Comment on above: Performed By: #### F YURIY, FEBC, VD25, PTHNCA #### [address] [id number] Patient Carrier: Bobby Flanagan MD #### AZN, ANICOT, AVITB1, AVITAS #### [facility] [address] [place] [address] Patient Carrier: Jeffy Benz MD #### CP, GLYHGB, CDP, MG, LIPR #### [address] [place] [address] Patient Carrier: Omari Fisher MD Eosinophils (Bld) [#/Vol] 0.37 10*3/uL Normal 0.00-0.44 [facility] Comment on above: Performed By: #### F ABDULKADIR YAN, VD25, PTHNCA #### [address] [place], [place] [id number] Patient Carrier: Bobby Flanagan MD #### RENA LAWSON AVITB1, ASHLITAAnna #### [facility] [address], [place] [id number] Patient Carrier: Jeffy Benz MD #### CP, GLYHGB, CDP, MG, LIPR #### [address] [place] [address] Patient Carrier: Omari Fisher MD Eosinophils/100 WBC (Bld) 5 % High 1-4 [facility] Comment on above: Performed By: #### ABDULKADIR BENSON, VD25, PTHNCA #### [address] [id number] Patient Carrier: Bobby Flanagan MD #### RENA LAWSON AVITB1, NATY #### [facility] [address] [place] [address] Patient Carrier: Jeffy Benz MD #### CP, GLYMOSHEB, CDP, MG, LIPR #### [facility] [address] [place] [address] Patient Carrier: Omari Fisher MD Erythrocyte distribution width (RBC) [Ratio] 12.6 % Normal 11.8-14.4 [facility] Comment on above: Performed By: #### ABDULKADIR BENSON, VD25, PTHNCA #### [address] [id number] Patient Carrier: Bobby Flanagan MD #### RENA LAWSON AVITB1, ASHLITAS #### [facility] [address] [place], [place] [id number] Patient Carrier: Jeffy Benz MD #### CP, GLYHGB, CDP, MG, LIPR #### [address] [place] [address] Patient Carrier: Omari Fisher MD Hematocrit (Bld) [Volume fraction] 42.8 % Normal 36.3-47.1 [facility] Comment on above: Performed By: #### F ABDULKADIR YAN, VD25, PTHNCA #### [address] [phone] Patient Carrier: Bobby Flanagan MD #### RENA LAWSON, ASHLITB1, NATY #### [facility] [address] [place], [place] [id number] Patient Carrier: Jeffy Benz MD #### CP, GLYHGB, CDP, MG, LIPR #### [address] [place] [address] Patient Carrier: Omari Fisher MD Hemoglobin (Bld) [Mass/Vol] 14.2 g/dL Normal 11.9-15.1 [facility] Comment on above: Performed By: #### ABDULKADIR BENSON, VD25, PTHNCA #### [address] [phone] Patient Carrier: Bobby Flanagan MD #### RENA LAWSON, ASHLITB1, AVITAS #### [facility] [address] [place], [place] [id number] Patient Carrier: Jeffy Benz MD #### CP, GLYHGB, CDP, MG, LIPR #### [address] [place] [address] Patient Carrier: Omari Fisher MD Immature granulocytes (Bld) [#/Vol] 0 % Normal 0 [facility] Comment on above: Performed By: #### F ABDULKADIR YAN, VD25, PTHNCA #### [address] [address] Patient Carrier: Bobby Flanagan MD #### AZN, ANDREICOT, AVITB1, AVITAS #### [facility] [address] [place] [address] Patient Carrier: Jeffy Benz MD #### CP, GLYHGB, CDP, MG, LIPR #### [address] [place] [phone] Patient Carrier: Omari Fisher MD Lymphocytes (Bld) [#/Vol] 1.80 10*3/uL Normal 1.10-3.70 [facility] Comment on above: Performed By: #### F YURIY, FEBC, VD25, PTHNCA #### [address] [address] Patient Carrier: Bobby Flanagan MD #### AZN, ANDREICOT, AVITB1, AVITAS #### [facility] [address] [place], [place] [id number] Patient Carrier: Jeffy Benz MD #### CP, GLYHGB, CDP, MG, LIPR #### [address] [place], [place] 6552483 Patient Carrier: Omari Fisher MD Lymphocytes/100 WBC (Bld) 25 % Normal 24-43 [facility] Comment on above: Performed By: #### F YURIY, FEBC, VD25, PTHNCA #### [address] [address] Patient Carrier: Bobby Flanagan MD #### AZN, ANICOT, AVITB1, AVITAS #### [facility] [address] [place] [address] Patient Carrier: Jeffy Benz MD #### CP, GLYHGB, CDP, MG, LIPR #### [address] [place] [phone] Patient Carrier: Omari Fisher MD MCH (RBC) [Entitic mass] 30.7 pg Normal 25.2-33.5 [facility] Comment on above: Performed By: #### F YURIY, FEBC, VD25, PTHNCA #### [address] [id number] Patient Carrier: Bobby Flanagan MD #### AZN, ANICOT, AVITB1, AVITAS #### [facility] [address] [place] [address] Patient Carrier: Jeffy Benz MD #### CP, GLYHGB, CDP, MG, LIPR #### [address] [place] [phone] Patient Carrier: Omari Fisher MD MCHC (RBC) [Mass/Vol] 33.2 g/dL Normal 28.4-34.8 [facility] Comment on above: Performed By: #### F YURIY, FEBC, VD25, PTHNCA #### [address] [address] Patient Carrier: Bobby Flanagan MD #### AZN, ANDREICOT, AVITB1, AVITAS #### [facility] [address] [place] [address] Patient Carrier: Jeffy Benz MD #### CP, GLYHGB, CDP, MG, LIPR #### [address] [place] [phone] Patient Carrier: Omari Fisher MD MCV (RBC) [Entitic vol] 92.4 fL Normal 82.6-102.9 [facility] Comment on above: Performed By: #### F YURIY, FEBC, VD25, PTHNCA #### [address] [id number] Patient Carrier: Bobby Flanagan MD #### RENA LAWSON, ASHLITB1, AVITAS #### [facility] [address], [place] [id number] Patient Carrier: Jeffy Benz MD #### CP, GLYHGB, CDP, MG, LIPR #### [address] [place] [phone] Patient Carrier: Omari Fisher MD Monocytes (Bld) [#/Vol] 0.61 10*3/uL Normal 0.10-1.20 [facility] Comment on above: Performed By: #### F ABDULKADIR YAN, VD25, PTHNCA #### [address] [id number] Patient Carrier: Bobby Flanagan MD #### RENA LAWSON, ASHLITB1, AVITAS #### [facility] [address] [place] [address] [id number] Patient Carrier: Jeffy Benz MD #### CP, GLYHGB, CDP, MG, LIPR #### [address] [place] [phone] Patient Carrier: Omari Fisher MD Monocytes/100 WBC (Bld) 8 % Normal 3-12 [facility] Comment on above: Performed By: #### F ABDULKADIR YAN, VD25, PTHNCA #### [address] [id number] Patient Carrier: Bobby Flanagan MD #### RENA LAWSON, ASHLITB1, AVITAS #### [facility] [address], [place] [id number] Patient Carrier: Jeffy Benz MD #### CP, GLYHGB, CDP, MG, LIPR #### [address] [place] [address] Patient Carrier: Omari Fisher MD Neutrophil (Seg) 61 % Normal 36-65 [facility] Comment on above: Performed By: #### F ABDULKADIR YAN, VD25, PTHNCA #### [address] [place], [place] [phone] Patient Carrier: Bobby Flanagan MD #### RENA LAWSON AVITBWinnie, NATY #### [facility] [address] [place], [place] [id number] Patient Carrier: Jeffy Benz MD #### CP, GLYHGB, CDP, MG, LIPR #### [facility] [address] [place] [address] Patient Carrier: Omari Fisher MD NRBC Automated 0.0 per [address] [facility] Comment on above: Performed By: #### ABDULKADIR BENSON, VD25, PTHNCA #### [address] [id number] Patient Carrier: Bobby Flanagan MD #### RENA LAWSON AVITB1, NATY #### [facility] [address] [place] [address] Patient Carrier: Jeffy Benz MD #### CP, GLYHGB, CDP, MG, LIPR #### [facility] [address] [place] [address] Patient Carrier: Omari Fisher MD Platelet mean volume (Bld) [Entitic vol] 11.2 fL Normal 8.1-13.5 [facility] Comment on above: Performed By: #### F ABDULKADIR YAN, VD25, PTHNCA #### [address] [phone] Patient Carrier: Bobby Flanagan MD #### RENA LAWSON AVITB1, NATY #### [facility] [address] [place] [address] Patient Carrier: Jeffy Benz MD #### CP, GLYHGB, CDP, MG, LIPR #### [address] [place], [place] [phone] Patient Carrier: Omari Fisher MD Platelets (Bld) [#/Vol] 201 10*3/uL Normal 138-453 [facility] Comment on above: Performed By: #### F YURIY, FEBC, VD25, PTHNCA #### [address] [id number] Patient Carrier: Bobby Flanagan MD #### LULU, RENA, ASHLITB1, AVITAS #### [facility] [address] [place] [address] Patient Carrier: Jeffy Benz MD #### CP, GLYHGB, CDP, MG, LIPR #### [address] [place], [facility]83 Patient Carrier: Omari Fisher MD RBC (Bld) [#/Vol] 4.63 10*6/uL Normal 3.95-5.11 [facility] Comment on above: Performed By: #### F YURIY, FEBC, VD25, PTHNCA #### [address] [address] Patient Carrier: Bobby Flanagan MD #### LULU, RENA, AVITB1, AVITAS #### [facility] [address] [place] [address] Patient Carrier: Jeffy Benz MD #### CP, GLYHGB, CDP, MG, LIPR #### [address] [place], [place] [phone] Patient Carrier: Omari Fisher MD WBC (Bld) [#/Vol] 7.3 10*3/uL Normal 3.5-11.3 [facility] Comment on above: Performed By: #### F YURIY, FEBC, VD25, PTHNCA #### [address] [address] Patient Carrier: Bobby Flanagan MD #### AZN, ANICOT, AVITB1, AVITAS #### [facility] [address] [place] [address] Patient Carrier: Jeffy Benz MD #### CP, GLYHGB, CDP, MG, LIPR #### [facility] [address] [place] [address] [place] [address] Patient Carrier: Omari Fisher MD Auto Diff Performed NOT REPORTED Normal [facility] Comment on above: Performed By: #### F YURIY, FEBC, VD25, PTHNCA #### [address] [address] Patient Carrier: Bobby Flanagan MD #### AZN, ANICOT, AVITB1, AVITAS #### [facility] [address] [place], [place] [id number] Patient Carrier: Jeffy Benz MD #### CP, GLYHGB, CDP, MG, LIPR #### [address] [place], [place] 2666483 Patient Carrier: Omari Fisher MD Platelets (Bld) [#/Vol] NOT REPORTED Normal [facility] Comment on above: Performed By: #### F YURIY, FEBC, VD25, PTHNCA #### [address] [address] Patient Carrier: Bobby Flanagan MD #### AZN, ANICOT, AVITB1, AVITAS #### [facility] [address] [place] [address] Patient Carrier: Jeffy Benz MD #### CP, GLYHGB, CDP, MG, LIPR #### [facility] [address] [place], [place] [phone] Patient Carrier: Omari Fisher MD RBC morphology finding Nom (Bld) NOT REPORTED Normal [facility] Comment on above: Performed By: #### F YURIY, FEBC, VD25, PTHNCA #### [facility] [place], [place] 2049508 Patient Carrier: Bobby Flanagan MD #### LULU, RENA, ASHLITB1, AVITAS #### [facility] [address] [place], [place] [id number] Patient Carrier: Jeffy Benz MD #### CP, GLYHGB, CDP, MG, LIPR #### [address] [place] [address] Patient Carrier: Omari Fisher MD WBC Morphology NOT REPORTED Normal [facility] Comment on above: Performed By: #### F YURIY, FEBC, VD25, PTHNCA #### [facility] [place], [place] [id number] Patient Carrier: Bobby Flanagan MD #### LULU, RENA, ASHLITB1, AVITAS #### [facility] [address], [place] [id number] Patient Carrier: Jeffy Benz MD #### CP, GLYHGB, CDP, MG, LIPR #### [facility] [address] [place] [address] [place] [address] Patient Carrier: Omari Fisher MD Comp Metabolic Profon 2019 (cont.) Normal [facility] Comment on above: Result Comment: Aver age GFR for 30-39 years old: 107 mL/min/1.73sq m Chronic Kidney Disease: <60 mL/min/1.73sq m Kidney failure: <15 mL/min/1.73sq m eGFR calculated using average adult body mass. Additional eGFR calculator available at: http://www.[employer].com/multiple_crcl_2011.htm Performed By: #### F YURIY, FEBC, VD25, PTHNCA #### [address] [address] Patient Carrier: Bobby Flanagan MD #### AZN, ANICOT, AVITB1, AVITAS #### [facility] [address] [place], [place] [id number] Patient Carrier: Jeffy Benz MD #### CP, GLYHGB, CDP, MG, LIPR #### [address] [place] [address] Patient Carrier: Omari Fisher MD Albumin [Mass/Vol] 4.4 g/dL Normal 3.5-5.2 [facility] Comment on above: Performed By: #### F YURIY, FEBC, VD25, PTHNCA #### [address] [phone] Patient Carrier: Bobby Flanagan MD #### AZJustin, ANDREICOT, AVITB1, AVITAS #### [facility] [address] [place] [address] Patient Carrier: Jeffy Benz MD #### CP, GLYHGB, CDP, MG, LIPR #### [address] [place] [phone] Patient Carrier: Omari Fisher MD Albumin/Globulin [Mass ratio] 1.7 {ratio} Normal 1.0-2.5 [facility] Comment on above: Performed By: #### F YURIY, FEBC, VD25, PTHNCA #### [address] [id number] Patient Carrier: Bobby Flanagan MD #### AZN, ANICOT, AVITB1, AVITAS #### [facility] [address] [place], [place] [id number] Patient Carrier: Jeffy Benz MD #### CP, GLYHGB, CDP, MG, LIPR #### [facility] [address] [place] [address] [place] [place] [phone] Patient Carrier: Omari Fisher MD Alkaline Phos 68 U/L Normal 35-104 [facility] Comment on above: Performed By: #### F YURIY, FEBC, VD25, PTHNCA #### [address] [address] Patient Carrier: Bobby Flanagan MD #### AZN, ANICOT, AVITB1, AVITAS #### [facility] [address] [place] [address] Patient Carrier: Jeffy Benz MD #### CP, GLYHGB, CDP, MG, LIPR #### [address] [place] [phone] Patient Carrier: Omari Fisher MD ALT [Catalytic activity/Vol] 35 U/L High 5-33 [facility] Comment on above: Performed By: #### F YURIY, FEBC, VD25, PTHNCA #### [address] [address] Patient Carrier: Bobby Flanagan MD #### AZN, ANDREICOT, AVITB1, AVITAS #### [facility] [address] [place] [address] Patient Carrier: Jeffy Benz MD #### CP, GLYHGB, CDP, MG, LIPR #### [address] [place] [phone] Patient Carrier: Omari Fisher MD Anion gap [Moles/Vol] 13 mmol/L Normal 9-17 [facility] Comment on above: Performed By: #### F YURIY, FEBC, VD25, PTHNCA #### [address] [id number] Patient Carrier: Bobby Flanagan MD #### AZN, ANDREICOT, AVITB1, AVITAS #### [facility] [address] [place] [address] Patient Carrier: Jeffy Benz MD #### CP, GLYHGB, CDP, MG, LIPR #### [address] [place] [address] Patient Carrier: Omari Fisher MD AST [Catalytic activity/Vol] 24 U/L Normal <32 [facility] Comment on above: Performed By: #### F YURIY, FEBC, VD25, PTHNCA #### [address] [id number] Patient Carrier: Bobby Flanagan MD #### AZJustin, ANDREICOT, AVITB1, AVITAS #### [facility] [address] [place] [address] Patient Carrier: Jeffy Benz MD #### CP, GLYHGB, CDP, MG, LIPR #### [address] [place] [address] Patient Carrier: Omari Fisher MD Bilirubin Ql (U) 0.51 mg/dL Normal 0.3-1.2 [facility] Comment on above: Performed By: #### F YURIY, FEBC, VD25, PTHNCA #### [address] [id number] Patient Carrier: Bobby Flanagan MD #### AZN, ANDREICOT, AVITB1, AVITAS #### [facility] [address] [place] [address] Patient Carrier: Jeffy Benz MD #### CP, GLYHGB, CDP, MG, LIPR #### [address] [place] [address] Patient Carrier: Omari Fisher MD BUN/CRE Ratio 18 Normal 9-20 [facility] Comment on above: Performed By: #### F ABDULKADIR YAN, VD25, PTHNCA #### [address] [phone] Patient Carrier: Bobby Flanagan MD #### LULU, RENA, AVITB1, AVITAS #### [facility] [address] [place], [place] [id number] Patient Carrier: Jeffy Benz MD #### CP, GLYHGB, CDP, MG, LIPR #### [address] [place] [address] Patient Carrier: Omari Fisher MD Calcium [Mass/Vol] 9.4 mg/dL Normal 8.6-10.4 [facility] Comment on above: Performed By: #### ABDULKADIR BENSON, VD25, PTHNCA #### [address] [id number] Patient Carrier: Bobby Flanagan MD #### RENA LAWSON, ASHLITB1, AVITAS #### [facility] [address] [place] [address] Patient Carrier: Jeffy Benz MD #### CP, GLYHGB, CDP, MG, LIPR #### [address] [place] [address] Patient Carrier: Omari Fisher MD Chloride [Moles/Vol] 100 mmol/L Normal 98-107 [facility] Comment on above: Performed By: #### ABDULKADIR BENSON, VD25, PTHNCA #### [address] [address] Patient Carrier: Bobby Flanagan MD #### AZRENA Anderson, AVITB1, AVITAS #### [facility] [address] [place], [place] [id number] Patient Carrier: Jeffy Benz MD #### CP, GLYHGB, CDP, MG, LIPR #### [address] [place] [address] Patient Carrier: Omari Fisher MD CO2 [Moles/Vol] 27 mmol/L Normal 20-31 [facility] Comment on above: Performed By: #### F YURIY, FEBC, VD25, PTHNCA #### [address] [id number] Patient Carrier: Bobby Flanagan MD #### RENA LAWSON AVITB1, NATY #### [facility] [address] [place] [address] Patient Carrier: Jeffy Benz MD #### CP, GLYHGB, CDP, MG, LIPR #### [address] [place] [address] Patient Carrier: Omari Fisher MD Creatinine [Mass/Vol] 0.83 mg/dL Normal 0.50-0.90 [facility] Comment on above: Performed By: #### F YURIY FEMAO, VD25, PTHNCA #### [address] [phone] Patient Carrier: Bobby Flanagan MD #### RENA LAWSON, ASHLITBWinnie, NATY #### [facility] [address] [place] [address] Patient Carrier: Jeffy Benz MD #### CP, GLYHGB, CDP, MG, LIPR #### [address] [place] [address] Patient Carrier: Omari Fisher MD GFR, Amer >60 Normal >60 [facility] Comment on above: Performed By: #### F YURIY, FEBC, VD25, PTHNCA #### [address] [place] [address] Patient Carrier: Bobby Flanagan MD #### RENA LAWSON, ASHLITB1, AVITAS #### [facility] [address] [place], [place] [id number] Patient Carrier: Jeffy Benz MD #### CP, GLYHGB, CDP, MG, LIPR #### [facility] [address] [place] [address] Patient Carrier: Omari Fisher MD GFR,non Amer >60 Normal >60 [facility] Comment on above: Performed By: #### F ABDULKADIR YAN, VD25, PTHNCA #### [address] [address] Patient Carrier: Bobby Flanagan MD #### RENA LAWSON, ASHLITB1, AVITAS #### [facility] [address] [place] [address] Patient Carrier: Jeffy Benz MD #### CP, GLYHGB, CDP, MG, LIPR #### [address] [place] [address] Patient Carrier: Omari Fisher MD Glucose [Mass/Vol] 117 mg/dL High 70-99 [facility] Comment on above: Performed By: #### F ABDULKADIR YAN, VD25, PTHNCA #### [address] [address] Patient Carrier: Bobby Flanagan MD #### RENA LAWSON, AVITB1, AVITAS #### [facility] [address] [place] [address] Patient Carrier: Jeffy Benz MD #### CP, GLYHGB, CDP, MG, LIPR #### [facility] [address] [place] [address] Patient Carrier: Omari Fisher MD Potassium [Moles/Vol] 3.5 mmol/L Low 3.7-5.3 [facility] Comment on above: Performed By: #### F ABDULKADIR YAN, VD25, PTHNCA #### [address] [address] Patient Carrier: Bobby Flanagan MD #### RENA LAWSON, ASHLITB1, AVITAS #### [facility] [address] [place], [place] [id number] Patient Carrier: Jeffy Benz MD #### CP, GLYHGB, CDP, MG, LIPR #### [address] [place] [address] Patient Carrier: Omari Fisher MD Protein [Mass/Vol] 7.0 g/dL Normal 6.4-8.3 [facility] Comment on above: Performed By: #### ABDULKADIR BENSON, VD25, PTHNCA #### [address] [address] Patient Carrier: Bobby Flanagan MD #### RENA LAWSON, ASHLITB1, HUANGS #### [facility] [address] [place] [address] Patient Carrier: Jeffy Benz MD #### CP, GLYHGB, CDP, MG, LIPR #### [address] [place] [address] Patient Carrier: Omari Fisher MD Sodium [Moles/Vol] 140 mmol/L Normal 135-144 [facility] Comment on above: Performed By: #### F ABDULKADIR YAN, VD25, PTHNCA #### [address] [address] Patient Carrier: Bobby Flanagan MD #### RENA LAWSON, ASHLITB1, AVITAS #### [facility] [address], [place] [id number] Patient Carrier: Jeffy Benz MD #### CP, GLYHGB, CDP, MG, LIPR #### [address] [place] [address] Patient Carrier: Omari Fisher MD Staging: Normal [facility] Comment on above: Result Comment: Stag e 1: Some kidney damage normal GFR Stage 2: Mild kidney damage GFR 60-89 Stage 3: Moderate kidney damage GFR 30-59 Stage 4: Severe kidney damage GFR 15-29 Stage 5: Severe kidney damage GFR <15 ESRD - chronic treatment by dialysis or transplant Performed By: #### F ABDULKADIR YAN, VD25, PTHNCA #### [address] [id number] Patient Carrier: Bobby Flanagan MD #### RENA LAWSON, ASHLITB1, AVITAS #### [facility] [address] [place] [address] [id number] Patient Carrier: Jeffy Benz MD #### CP, GLYHGB, CDP, MG, LIPR #### [address] [place] [address] Patient Carrier: Omari Fisher MD Urea nitrogen [Mass/Vol] 15 mg/dL Normal 6-20 [facility] Comment on above: Performed By: #### F ABDULKADIR YAN, VD25, PTHNCA #### [address] [id number] Patient Carrier: Bobby Flanagan MD #### RENA LAWSON, ASHLITB1, AVITAS #### [facility] [address] [place], [place] [id number] Patient Carrier: Jeffy Benz MD #### CP, GLYHGB, CDP, MG, LIPR #### [address] [place] [address] Patient Carrier: Omari Fisher MD Comprehensive Metabolic Pane gisela 04-18-2020 Albumin [Mass/Vol] 4.4 g/dL 3.5 - 5.2 g/dL [place], [place] Albumin/Globulin [Mass ratio] 1.7 {ratio} [place] ALP [Catalytic activity/Vol] 68 U/L 35 - 104 U/L [place] ALT [Catalytic activity/Vol] 35 U/L High 5 - 33 U/L [place] Anion gap [Moles/Vol] 13 mmol/L 9 - 17 mmol/L [place] AST [Catalytic activity/Vol] 24 U/L <32 [place] Bilirubin Ql (U) 0.51 mg/dL 0.3 - 1.2 mg/dL [place] Bun/Cre Ratio 18 [place], [place] Calcium [Mass/Vol] 9.4 mg/dL 8.6 - 10. 4 mg/dL [place] Chloride [Moles/Vol] 100 mmol/L 98 - 107 mmol/L [place] CO2 [Moles/Vol] 27 mmol/L 20 - 31 mmol/L [place] Creatinine [Mass/Vol] 0.83 mg/dL 0.5 - 0.9 mg/dL [place] GFR >60 >60 mL/min [place] GFR Non- >60 >60 mL/min [place] Glucose [Mass/Vol] 117 mg/dL High 70 - 99 mg/dL [place], [place] Potassium [Moles/Vol] 3.5 mmol/L Low 3.7 - 5.3 mmol/L [place] Protein [Mass/Vol] 7.0 g/dL 6.4 - 8.3 g/dL [place] Sodium [Moles/Vol] 140 mmol/L 135 - 144 mmol/L [place] Urea nitrogen [Mass/Vol] 15 mg/dL 6 - 20 mg/dL [place] Ferritinon 04-18-2020 Ferritin [Mass/Vol] 59 ug/L Normal 13-150 [facility] Comment on above: Performed By: #### D AU #### [facility] [address] [place] [address] [place] [address] Patient Carrier: Omari Fisher MD Ferritin [Mass/Vol] 59 ug/L 13 - 150 ug/L [place] Hemoglobin A1Con 04-18-2020 HbA1c (Bld) [Mass fraction] 5.3 % Normal 4.8-5.9 [facility] Comment on above: Performed By: #### F ABDULKADIR YAN, VD25, PTHNCA #### [address] [place] [address] Patient Carrier: Bobby Flanagan MD #### RENA LAWSON, ASHLITB1, AVITAS #### [facility] [address] [place] [address] Patient Carrier: Jeffy Benz MD #### CP, GLYHGB, CDP, MG, LIPR #### [address] [place] [address] Patient Carrier: Omari Fisher MD HbA1c (Bld) [Mass fraction] 105 mg/dL Normal [facility] Comment on above: Result Comment: The ADA and AACC recommend providing the estimated average glucose result to permit better patient understanding of their HBA1c result. Performed By: #### F ABDULKADIR YAN, ERIC25, PTHNCA #### [address] [place] [address] Patient Carrier: Bobby Flanagan MD #### RENA LAWSON, ASHLITB1, AVITAS #### [facility] [address] [place] [address] Patient Carrier: Jeffy Benz MD #### CP, GLYHGB, CDP, MG, LIPR #### [address] [place] [address] Patient Carrier: Omari Fisher MD Glucose [Mass/Vol] 105 mg/dL [place] Comment on above: The ADA and AACC rec ommend providing the estimated average glucose result to permit better patient understanding of their HBA1c result. HbA1c (Bld) [Mass fraction] 5.3 % 4.8 - 5.9 % [place] Iron Binding Cap.on 04-18-20 20 % Fe Saturation 33 % Normal 20-55 [facility] Comment on above: Performed By: #### D AU #### [facility] [address] [place] [address] [place], [place] [id number] Patient Carrier: Omari Fisher MD Iron [Mass/Vol] 104 ug/dL Normal 37-145 [facility] Comment on above: Performed By: #### D AU #### [facility] [address] [place] [address] [place], [place] [id number] Patient Carrier: Omari Fisher MD Total Fe Binding Cap 312 ug/dL Normal 250-450 [facility] Comment on above: Performed By: #### D AU #### [facility] [address] [place], [place] [id number] Patient Carrier: Omari Fisher MD Unbound Fe Bind Cap 208 ug/dL Normal 112-347 [facility] Comment on above: Performed By: #### D AU #### [facility] [address] [place] [address] [place], [place] [id number] Patient Carrier: Omari Fisher MD Iron and TIBCon 04-18-2020 Iron [Mass/Vol] 104 ug/dL 37 - 145 ug/dL [place] Iron Saturation 33 % 20 - 55 % [place] TIBC 312 ug/dL 250 - 450 ug/dL [place] UIBC 208 ug/dL 112 - 347 ug/dL [place] Lipid Panelon 04-18-2020 Cholesterol [Mass/Vol] 207 mg/dL High <200 [place] Comment on above: Cholesterol Guidelines: <200 Desirable 200-240 Borderline >240 Undesirable Cholesterol in HDL [Mass/Vol] 33 mg/dL Low >40 [place] Comment on above: HDL Guidelines: <40 Undesirable 40-59 Borderline >59 Desirable Cholesterol in LDL [Mass/Vol] 119 mg/dL 0 - 130 mg/dL [place] Comment on above: LDL Guidelines: <100 Desirable 100-129 Near to/above Desirable 130-159 Borderline >159 Undesirable Direct (measured) LDL and calculated LDL are not interchangeable tests. Cholesterol in VLDL [Mass/Vol] NOT REPORTED High 1 - 30 mg/dL [place] Cholesterol.total/C holesterol in HDL [Mass ratio] 6.3 {ratio} High <5 [place] Triglyceride [Mass/Vol] 273 mg/dL High <150 [place] Comment on above: Triglyceride Guidelines: <150 Desirable 150-199 Borderline 200-499 High >499 Very high Based on AHA Guidelines for fasting triglyceride, July 2012. Lipid Profileon 04-18-2020 Cholesterol [Mass/Vol] 207 mg/dL High <200 [facility] Comment on above: Result Comment: Cholesterol Guidelines: <200 Desirable 200-240 Borderline >240 Undesirable Performed By: #### F ABDULKADIR YAN, VD25, PTHNCA #### [facility] [employer] [address] [place] [address] Patient Carrier: Bobby Flanagan MD #### RENA LAWSON AVITB1, AVITAS #### [facility] [address] [place] [address] Patient Carrier: Jeffy Benz MD #### CP, GLYHGB, CDP, MG, LIPR #### [facility] [address] [place] [address] Patient Carrier: Omari Fisher MD Cholesterol in HDL [Mass/Vol] 33 mg/dL Low >40 [facility] Comment on above: Result Comment: HDL Guidelines: <40 Undesirable 40-59 Borderline >59 Desirable Performed By: #### F YURIY FEBC, VD25, PTHNCA #### [facility] [employer] [address] [place] [address] Patient Carrier: Bobby Flanagan MD #### AZN, ANICOT, AVITB1, AVITAS #### [facility] [address] [place] [address] Patient Carrier: Jeffy Benz MD #### CP, GLYHGB, CDP, MG, LIPR #### [address] [place] [address] Patient Carrier: Omari Fisher MD Cholesterol in LDL [Mass/Vol] 119 mg/dL Normal 0-130 [facility] Comment on above: Result Comment: LDL Guidelines: <100 Desirable 100-129 Near to/above Desirable 130-159 Borderline >159 Undesirable Direct (measured) LDL and calculated LDL are not interchangeable tests. Performed By: #### F ABDULKADIR YAN, VD25, PTHNCA #### [address] [id number] Patient Carrier: Bobby Flanagan MD #### RENA LAWSON AVITB1, NATY #### [facility] [address] [place] [address] Patient Carrier: Jeffy Benz MD #### HANNAH, SUYAPA, CDP, MG, LIPR #### [address] [place] [address] Patient Carrier: Omari Fisher MD Cholesterol.total/C holesterol in HDL [Mass ratio] 6.3 {ratio} High <5 [facility] Comment on above: Performed By: #### F ABDULKADIR YAN, VD25, PTHNCA #### [address] [place], [place] 0004608 Patient Carrier: Bobby Flanagan MD #### RENA ALWSON AVITB1, NATY #### [facility] [address] [place] [address] Patient Carrier: Jeffy Benz MD #### CP, GLYHGB, CDP, MG, LIPR #### [address] [place], [place] [phone] Patient Carrier: Omari Fisher MD Triglyceride [Mass/Vol] 273 mg/dL High <150 [facility] Comment on above: Result Comment: Triglyceride Guidelines: <150 Desirable 150-199 Borderline 200-499 High >499 Very high Based on AHA Guidelines for fasting triglyceride, July 2012. Performed By: #### F YURIY, FEBC, VD25, PTHNCA #### [facility] [place] [address] Patient Carrier: Bobby Flanagan MD #### AZN, ANDREICOT, AVITB1, AVITAS #### [facility] [address] [place] [address] Patient Carrier: Jeffy Benz MD #### CP, GLYHGB, CDP, MG, LIPR #### [facility] [address] [place] [id number] Patient Carrier: Omari Fisher MD Cholesterol in VLDL [Mass/Vol] NOT REPORTED Normal 11-10 [facility] Comment on above: Performed By: #### F YURIY, FEBC, VD25, PTHNCA #### [address] [address] Patient Carrier: Bobby Flanagan MD #### AZJustin, ANDREICOSatya, AVITB1, AVITAS #### [facility] [address] [place] [address] Patient Carrier: Jeffy Benz MD #### CP, GLYHGB, CDP, MG, LIPR #### [facility] [address] [place] [address] Patient Carrier: Omari Fisher MD Magnesiumon 04-18-2020 Magnesium [Mass/Vol] 2.1 mg/dL Normal 1.6-2.6 [facility] Comment on above: Performed By: #### F YURIY, FEBC, VD25, PTHNCA #### [address] [id number] Patient Carrier: Bobby Flanagan MD #### RENA LAWSON AVITB1, NATY #### [facility] [address] [place] [address] Patient Carrier: Jeffy Benz MD #### CP, GLYHGB, CDP, MG, LIPR #### [facility] [address] [place] [address] Patient Carrier: Omari Fisher MD Magnesium [Mass/Vol] 2.1 mg/dL 1.6 - 2.6 mg/dL [place] Metabolic Panelon 04-18-2020 GFR/1.73 sq M predicted among non-blacks MDRD (S/P/Bld) [Vol rate/Area] [place] Comment on above: Average GFR for 30-3 9 years old: 107 mL/min/1.73sq m Chronic Kidney Disease: <60 mL/min/1.73sq m Kidney failure: <15 mL/min/1.73sq m eGFR calculated using average adult body mass. Additional eGFR calculator available at: http://www.[employer].JobOn/multiple_crcl_2012.htm Stage 1: Some kidney damage normal GFR Stage 2: Mild kidney damage GFR 60-89 Stage 3: Moderate kidney damage GFR 30-59 Stage 4: Severe kidney damage GFR 15-29 Stage 5: Severe kidney damage GFR <15 ESRD - chronic treatment by dialysis or transplant Otheron 04-18-2020 Interpretation and review of laboratory results Abnormal [place] PTH, Intacton 04-18-2020 PTH, Intact 54.97 pg/mL Normal 15.0-65.0 [facility] Comment on above: Result Comment: SAMP LES FROM PATIENTS ROUTINELY RECEIVING HIGH DOSE BIOTIN THERAPY MAY SHOW FALSELY DEPRESSED RESULTS. ADDITIONAL INFORMATION MAY BE REQUIRED FOR DIAGNOSIS. Performed By: #### F YURIY, FEBC, VD25, PTHNCA #### [facility] [address] [place], [place] [id number] Patient Carrier: Bobby Flanagan MD #### AZN, ANICOT, AVITB1, AVITAS #### [facility] [address] [place] [address] Patient Carrier: Jeffy Benz MD #### CP, GLYHGB, CDP, MG, LIPR #### [facility] [address] [place] [address] [place] [address] Patient Carrier: Omari Fisher MD Pth Intact 54.97 pg/mL 15 - 65 pg/mL [place], [place] Comment on above: SAMPLES FROM PATIENT S ROUTINELY RECEIVING HIGH DOSE BIOTIN THERAPY MAY SHOW FALSELY DEPRESSED RESULTS. ADDITIONAL INFORMATION MAY BE REQUIRED FOR DIAGNOSIS. T4, Freeon 04-18-2020 Interpretation and review of laboratory results Abnormal [place] Thyroxine, Free 0.90 ng/dL Low 0.93 - 1.7 ng/dL [place] TSH without Reflexon 020 TSH Qn 1.74 m[IU]/L [place], [place] Thyroid Stim. Horm.on 2019 TSH Qn 1.74 m[IU]/L Normal 0.30-5.00 [facility] Comment on above: Performed By: #### D AU #### [address] [place] [address] Patient Carrier: Omari Fisher MD Thyroxine, Freeon 04-18-2020 Thyroxine, Free 0.90 ng/dL Low 0.93-1.70 [facility] Comment on above: Performed By: #### D AU #### [address] [place] [address] Patient Carrier: Omari Fisher MD Vitamin B12 & Folateon 04-18 Cobalamin (Vitamin B12) [Mass/Vol] 324 pg/mL 232 - 1245 pg/mL [place] Folate 14.3 ng/mL >4.8 [place] Vitamin D 25 Hydroxyon 04-18 Interpretation and review of laboratory results Abnormal [place] Vit D, 25-Hydroxy 22.6 ng/mL Low 30 - 100 ng/mL [facility] [place] Comment on above: Reference Range: Vitamin D status Range Deficiency <20 ng/mL Mild Deficiency 20-30 ng/mL Sufficiency 30-100 ng/mL Toxicity >100 ng/mL Vitamin D 25 OHon 04-18-2020 Vitamin D 25 [place] 22.6 ng/mL Low 30.0-100.0 [facility] Comment on above: Result Comment: Reference Range: Vitamin D status Range Deficiency <20 ng/mL Mild Deficiency 20-30 ng/mL Sufficiency 30-100 ng/mL Toxicity >100 ng/mL Performed By: #### D AU #### [facility] [address] [place] [address] Patient Carrier: Omari Fisher MD Basic Metabolic Panel Anion gap molar conc 13 mmol/L Normal 10-20 [facility] Comment on above: Performed By: #### 1 [id number] #### [facility] [address] [place] [address] Calcium mass conc 9.6 mg/dL Normal 8.6-10.3 [facility] Comment on above: Performed By: #### 1 [id number] #### [facility] [address] [place] [address] Chloride molar conc 104 mmol/L Normal 98-107 [facility] Comment on above: Performed By: #### 1 [id number] #### [facility] [address] [place] [address] Creatinine mass conc 0.83 mg/dL Normal 0.50-1.05 [facility] Comment on above: Performed By: #### 1 [id number] #### [facility] [address] [place] [address] GFR/1.73 sq M.predicted MDRD vol rate/area mL/min/{1.73_m2} Normal [facility] Comment on above: Result Comment: Inte rpretation for Chronic Kidney Disease: Stages 1&2 >60 Healthy or potential kidney damage. Mild decrease of GFR. Stage 3 30-59 Moderate decrease of GFR. Stage 4 15-29 Severe decrease of GFR. Stage 5 <15 Kidney failure or on dialysis. Performed By: #### 1 [id number] #### [facility] [address] [place] [address] Glucose mass conc 74 mg/dL Normal 70-100 [facility] Comment on above: Performed By: #### 1 [id number] #### [facility] [address] [place] [address] HCO3 molar conc (Bld) 26 mmol/L Normal 21-32 [facility] Comment on above: Performed By: #### 1 [id number] #### [facility] [address] [place] [address] Potassium molar conc 3.6 mmol/L Normal 3.5-5.1 [facility] Comment on above: Performed By: #### 1 [id number] #### [facility] [address] [place] [address] Sodium molar conc 139 mmol/L Normal 136-145 [facility] Comment on above: Performed By: #### 1 [id number] #### [facility] [address] [place] [address] Urea nitrogen mass conc 13 mg/dL Normal 6-23 [facility] Comment on above: Performed By: #### 1 [id number] #### [facility] [address] [place] [address] Urea nitrogen/Creatinine mass ratio 16 mg/mg Normal 5-25 [facility] Comment on above: Performed By: #### 1 [id number] #### [facility] [address] [place] [address] CBCon 12-15-2018 Erythrocyte distribution width Ratio (RBC) 12.6 % Normal 12.0-15.4 [facility] Comment on above: Performed By: #### 2 [id number] #### [facility] [address] [place] [address] Hematocrit Volume Fraction (Bld) 43.4 % Normal 36.5-46.6 [facility] Comment on above: Performed By: #### 2 [id number] #### [facility] [address] [place] [address] Hemoglobin mass conc (Bld) 14.2 g/dL Normal 11.8-15.3 [facility] Comment on above: Performed By: #### 2 [id number] #### [facility] [address] [place] [address] MCH Entitic mass (RBC) 30.3 pg Normal 27.5-33.0 [facility] Comment on above: Performed By: #### 2 [id number] #### [facility] [address] [place] [address] MCHC mass conc (RBC) 32.7 g/dL Normal 30.1-35.0 [facility] Comment on above: Performed By: #### 2 [id number] #### [facility] [address] [place] [address] MCV Entitic volume (RBC) 92.5 fL Normal 85.4-100.0 [facility] Comment on above: Performed By: #### 2 [id number] #### [facility] [address] [place] [address] NRBC Absolute 0.00 10*3/uL Normal [facility] Comment on above: Performed By: #### 2 [id number] #### [facility] [address] [place] [address] NRBC Automated 0.0 /100{WBCs} Normal [facility] Comment on above: Performed By: #### 2 [id number] #### [facility] [address] [place] [address] Platelet mean volume Entitic volume (Bld) 10.9 fL Normal 9.9-12.1 [facility] Comment on above: Performed By: #### 2 [id number] #### [facility] [address] [place] [address] Platelets #/vol (Bld) 199 10*3/uL Normal 155-404 [facility] Comment on above: Performed By: #### 2 [id number] #### [facility] [address] [place] [address] RBC #/vol (Bld) 4.69 10*6/uL Normal 3.85-5.10 [facility] Comment on above: Performed By: #### 2 [id number] #### [facility] [address] [place] [address] RDW SD 42.5 fL Normal 39.3-48.6 [facility] Comment on above: Performed By: #### 2 [id number] #### [facility] [address] [place] [address] WBC #/vol (Bld) 8.4 10*3/uL Normal 4.4-9.9 [facility] Comment on above: Performed By: #### 2 [id number] #### [facility] [address] [place] [address] Test (Serum)on Test, Serum Negative Normal [facility] Comment on above: Performed By: #### 3 [id number] #### [facility] [address] [place] [address] CBC With Differentialon 04-12 Basophils #/vol (Bld) 0.05 10*3/uL Normal 0.01-0.07 [facility] Comment on above: Performed By: #### 2 [id number] #### [facility] [address] [place] [address] Basophils/100 WBC (Bld) 0.5 % Normal 0.1-1.2 [facility] Comment on above: Performed By: #### 2 [id number] #### [facility] [address] [place] [address] Eosinophils #/vol (Bld) 0.38 10*3/uL Normal 0.04-0.50 [facility] Comment on above: Performed By: #### 2 [id number] #### [facility] [address] [place] [address] Eosinophils/100 WBC (Bld) 3.7 % Normal 0.0-8.1 [facility] Comment on above: Performed By: #### 2 [id number] #### [facility] [address] [place] [address] Erythrocyte distribution width Ratio (RBC) 12.3 % Normal 12.0-15.4 [facility] Comment on above: Performed By: #### 2 [id number] #### [facility] [address] [place] [address] Hematocrit Volume Fraction (Bld) 44.6 % Normal 36.5-46.6 [facility] Comment on above: Performed By: #### 2 [id number] #### [facility] [address] [place] [address] Hemoglobin mass conc (Bld) 14.8 g/dL Normal 11.8-15.3 [facility] Comment on above: Performed By: #### 2 [id number] #### [facility] [address] [place] [address] Imm Grans Absolute 0.03 10*3/uL Normal 0.00-0.21 [facility] Comment on above: Performed By: #### 2 [id number] #### [facility] [address] [place] [address] Immature granulocytes #/vol (Bld) 0.3 % Normal [facility] Comment on above: Performed By: #### 2 [id number] #### [facility] [address] [place] [address] Lymphocytes #/vol (Bld) 2.31 10*3/uL Normal 0.40-2.84 [facility] Comment on above: Performed By: #### 2 [id number] #### [facility] [address] [place] [address] Lymphocytes/100 WBC (Bld) 22.6 % Normal 15.7-50.5 [facility] Comment on above: Performed By: #### 2 [id number] #### [facility] [address] [place] [address] MCH Entitic mass (RBC) 31.1 pg Normal 27.5-33.0 [facility] Comment on above: Performed By: #### 2 [id number] #### [facility] [address] [place] [address] MCHC mass conc (RBC) 33.2 g/dL Normal 30.1-35.0 [facility] Comment on above: Performed By: #### 2 [id number] #### [facility] [address] [place] [address] MCV Entitic volume (RBC) 93.7 fL Normal 85.4-100.0 [facility] Comment on above: Performed By: #### 2 [id number] #### [facility] [address] [place] [address] Monocytes #/vol (Bld) 0.63 10*3/uL Normal 0.25-0.83 [facility] Comment on above: Performed By: #### 2 [id number] #### [facility] [address] [place] [address] Monocytes/100 WBC (Bld) 6.2 % Normal 4.8-12.7 [facility] Comment on above: Performed By: #### 2 [id number] #### [facility] [address] [place] [address] Neutrophils Absolute 6.84 10*3/uL Normal 1.95-6.85 [facility] Comment on above: Performed By: #### 2 [id number] #### [facility] [address] [place] [address] Neutrophils/100 WBC (Bld) 66.7 % Normal 36.8-73.2 [facility] Comment on above: Performed By: #### 2 720103 #### [facility] [address] [place] [address] NRBC Absolute 0.00 10*3/uL Normal [facility] Comment on above: Performed By: #### 2 [id number] #### [facility] [address] [place] [address] NRBC Automated 0.0 /100{WBCs} Normal [facility] Comment on above: Performed By: #### 2 [id number] #### [facility] [address] [place] [address] Platelet mean volume Entitic volume (Bld) 11.6 fL Normal 9.9-12.1 [facility] Comment on above: Performed By: #### 2 [id number] #### [facility] [address] [place] [address] Platelets #/vol (Bld) 184 10*3/uL Normal 155-404 [facility] Comment on above: Performed By: #### 2 [id number] #### [facility] [address] [place] [address] RBC #/vol (Bld) 4.76 10*6/uL Normal 3.85-5.10 [facility] Comment on above: Performed By: #### 2 [id number] #### [facility] [address] [place] [address] RDW SD 42.5 fL Normal 39.3-48.6 [facility] Comment on above: Performed By: #### 2 [id number] #### [facility] [address] [place] [address] WBC #/vol (Bld) 10.2 10*3/uL High 4.4-9.9 [facility] Comment on above: Performed By: #### 2 [id number] #### [facility] [address] [place] [address] Comprehensive Metabolic Pane gisela 05-05-2018 Albumin mass conc 4.5 g/dL Normal 3.4-5.0 [facility] Comment on above: Performed By: #### 1 [id number] #### [facility] [address] [place] [address] Albumin/Globulin mass ratio 1.7 {ratio} Normal 0.9-2.4 [facility] Comment on above: Performed By: #### 1 [id number] #### [facility] [address] [place] [address] ALP enzyme act/vol 80 U/L Normal 45-117 [facility] Comment on above: Performed By: #### 1 [id number] #### [facility] [address] [place] [address] ALT enzyme act/vol 37 U/L Normal 7-45 [facility] Comment on above: Performed By: #### 1 [id number] #### [facility] [address] [place] [address] Anion gap molar conc 13 mmol/L Normal 10-20 [facility] Comment on above: Performed By: #### 1 [id number] #### [facility] [address] [place] [address] AST enzyme act/vol 26 U/L Normal 13-39 [facility] Comment on above: Performed By: #### 1 [id number] #### [facility] [address] [place] [address] Bilirubin mass conc 0.6 mg/dL Normal 0.0-1.2 [facility] Comment on above: Performed By: #### 1 [id number] #### [facility] [address] [place] [address] Calcium mass conc 9.6 mg/dL Normal 8.6-10.3 [facility] Comment on above: Performed By: #### 1 [id number] #### [facility] [address] [place] [address] Chloride molar conc 105 mmol/L Normal 98-107 [facility] Comment on above: Performed By: #### 1 [id number] #### [facility] [address] [place] [address] Creatinine mass conc 0.95 mg/dL Normal 0.50-1.05 [facility] Comment on above: Performed By: #### 1 [id number] #### [facility] [address] [place] [address] GFR/1.73 sq M.predicted MDRD vol rate/area mL/min/{1.73_m2} Normal [facility] Comment on above: Result Comment: Inte rpretation for Chronic Kidney Disease: Stages 1&2 >60 Healthy or potential kidney damage. Mild decrease of GFR. Stage 3 30-59 Moderate decrease of GFR. Stage 4 15-29 Severe decrease of GFR. Stage 5 <15 Kidney failure or on dialysis. Performed By: #### 1 [id number] #### [facility] [address] [place] [address] Glucose mass conc 78 mg/dL Normal 70-100 [facility] Comment on above: Performed By: #### 1 [id number] #### [facility] [address] [place] [address] HCO3 molar conc (Bld) 26 mmol/L Normal 21-32 [facility] Comment on above: Performed By: #### 1 [id number] #### [facility] [address] [place] [address] Potassium molar conc 3.6 mmol/L Normal 3.5-5.1 [facility] Comment on above: Performed By: #### 1 [id number] #### [facility] [address] [place] [address] Protein mass conc 7.1 g/dL Normal 6.4-8.2 [facility] Comment on above: Performed By: #### 1 [id number] #### [facility] [address] [place] [address] Sodium molar conc 140 mmol/L Normal 136-145 [facility] Comment on above: Performed By: #### 1 [id number] #### [facility] [address] [place] [address] Urea nitrogen mass conc 10 mg/dL Normal 6-23 [facility] Comment on above: Performed By: #### 1 [id number] #### [facility] [address] [place] [address] Urea nitrogen/Creatinine mass ratio 11 mg/mg Normal 5-25 [facility] Comment on above: Performed By: #### 1 [id number] #### [facility] [address] [place] [address] ESR, Westergrenon 05-05-2018 ESR, Westergren 2 mm/h Normal 0-20 [facility] Comment on above: Performed By: #### 2 [id number] #### [facility] [address] [place] [address] Lipid Panelon 05-05-2018 Cholesterol in HDL mass conc 35 mg/dL Abnormal [facility] Comment on above: Result Comment: Age Normal Mod Risk High Risk 5-9 >46 38-46 <38 10-14 >44 40-44 <40 15-19 >42 38-42 <38 Adult >49 Performed By: #### 1 [id number] #### [facility] [address] [place] [address] Cholesterol in LDL mass conc 100 mg/dL Normal <130 [facility] Comment on above: Performed By: #### 1 [id number] #### [facility] [address] [place] [address] Cholesterol in VLDL mass conc 72 mg/dL Abnormal <30 [facility] Comment on above: Performed By: #### 1 [id number] #### [facility] [address] [place] [address] Cholesterol mass conc 207 mg/dL Abnormal <200 [facility] Comment on above: Performed By: #### 1 [id number] #### [facility] [address] [place] [address] Cholesterol.total/C holesterol in HDL mass ratio 5.9 {ratio} Normal [facility] Comment on above: Performed By: #### 1 [id number] #### [facility] [address] [place] [address] Triglyceride mass conc 361 mg/dL Abnormal <150 [facility] Comment on above: Result Comment: 150- 199 Borderline High 200-499 High >500 Very High Performed By: #### 1 [id number] #### [facility] [address] [place] [address] TSHon 05-05-2018 Thyrotropin Qn 1.75 mU/L Normal 0.44-3.98 [facility] Comment on above: Performed By: #### 1 [id number] #### [facility] [address] [place] [address] Vitamin D, 25 Hydroxyon 04-12 Vitamin D, 25 Hydroxy 23 ng/mL Abnormal [facility] Comment on above: Result Comment: DEFI CIENCY <20 INSUFFICIENCY 20-29 OPTIMUM LEVEL 30-80 POSSIBLE TOXICITY >80 Performed By: #### V ITD #### [facility] [address] [place] [address] SPINE CERVICAL MIN 4 VIEWSon 05-03-2018 SPINE CERVICAL MIN 4 VIEWS DATE OF EXAM: May 03 2018 12:05PM CLINICAL HISTORY/ Patient Name: BOO BO STUDY: SPINE CERVICAL MIN 4 VIEWS; 05/03/2018 12:05 pm INDICATION: NECK PAIN. COMPARISON: None. ACCESSION NUMBER(S): [id number] ORDERING CLINICIAN: NATE HERRON FINDINGS: The vertebral alignment is maintained and the vertebra are normal in height. The discs are maintained in height. The prevertebral soft tissues are not thickened. The posterior elements are intact. CONCLUSION: IMPRESSION: Negative Normal [facility] Vital Signs Date Time Vital Sign Value Performing Clinician Facility 12-04-2022 09:10-0500 Body height 170.18 cm Annette Navarroault Other [employer] Other 12-04-2022 09:10-0500 Body mass index (BMI) [Ratio] 46.98 kg/m2 Annette Navarroault Other [employer] [facility] Other 12-04-2022 09:10-0500 Body temperature 98.7 [degF] Annette Navarroault Other [employer] [facility] Other 12-04-2022 09:10-0500 Body weight 136.08 kg Annette Navarroault Other [employer] Other 12-04-2022 09:10-0500 Diastolic blood pressure 78 mm[Hg] Annette Navarroault Other [employer] Other 12-04-2022 09:10-0500 Respiratory rate 18 /min Annette Navarroault Other [employer] Other 12-04-2022 09:10-0500 SaO2% (BldA) [Mass fraction] 97 % Annette Navarroault Other [employer] [facility] Other 12-04-2022 09:10-0500 Systolic blood pressure 127 mm[Hg] Annette Homer Other [employer] Other 08-06-2022 10:05-0400 Body height 170.18 cm Liliana Morfin Other [employer] Other 08-06-2022 10:05-0400 Body mass index (BMI) [Ratio] 46.98 kg/m2 Liliana Shelbie Other [employer] [facility] Other 08-06-2022 10:05-0400 Body temperature 97.8 [degF] Liliana Shelbie Other [employer] Other 08-06-2022 10:05-0400 Body weight 136.08 kg Liliana Shelbie Other [employer] Other 08-06-2022 10:05-0400 Diastolic blood pressure 89 mm[Hg] Liliana Shelbie Other [employer] Other 08-06-2022 10:05-0400 Respiratory rate 18 /min Liliana Shelbie Other [employer] Other 08-06-2022 10:05-0400 SaO2% (BldA) [Mass fraction] 97 % Liliana Shelbie Other [employer] Other 08-06-2022 10:05-0400 Systolic blood pressure 146 mm[Hg] Liliana Shelbie Other [employer] Other 03-16-2022 14:15-0400 Body height 170.18 cm Annette Strickland Other [employer] Other 03-16-2022 14:15-0400 Body mass index (BMI) [Ratio] 47.29 kg/m2 Annette Strickland Other [employer] Other 03-16-2022 14:15-0400 Body temperature 97.7 [degF] Annette Strickland Other [employer] Other 03-16-2022 14:15-0400 Body weight 136.99 kg Annette Strickland Other [employer] Other 03-16-2022 14:15-0400 Diastolic blood pressure 85 mm[Hg] Annette Strickland Other [employer] Other 03-16-2022 14:15-0400 Respiratory rate 18 /min Annette Strickland Other [employer] Other 03-16-2022 14:15-0400 SaO2% (BldA) [Mass fraction] 99 % Annette Strickland Other [employer] Other 03-16-2022 14:15-0400 Systolic blood pressure 136 mm[Hg] Annette Strickland Other [employer] Other 09-29-2021 10:45-0500 Body height 170.18 cm Annette Navarroault Other [employer] Other 09-29-2021 10:45-0500 Body mass index (BMI) [Ratio] 46.82 kg/m2 Annette Navarroault Other [employer] [facility] Other 09-29-2021 10:45-0500 Body temperature 98.9 [degF] Annette Navarroault Other [employer] Other 09-29-2021 10:45-0500 Body weight 135.63 kg Annette Strickland Other [employer] Other 09-29-2021 10:45-0500 Respiratory rate 18 /min Annette Strickland Other [employer] Other 09-29-2021 10:45-0500 SaO2% (BldA) [Mass fraction] 97 % Annette Strickland Other [employer] Other 09-15-2021 12:10-0500 Body height 170.18 cm Linda Ginty Other [employer] Other 09-15-2021 12:10-0500 Body mass index (BMI) [Ratio] 47.14 kg/m2 Linda Ginty Other [employer] Other 09-15-2021 12:10-0500 Body temperature 98.1 [degF] Linda Ginty Other [employer] Other 09-15-2021 12:10-0500 Body weight 136.53 kg Linda Ginty Other [employer] Other 09-15-2021 12:10-0500 Diastolic blood pressure 68 mm[Hg] Linda Ginty Other [employer] Other 09-15-2021 12:10-0500 Respiratory rate 18 /min Linda Ginty Other [employer] Other 09-15-2021 12:10-0500 SaO2% (BldA) [Mass fraction] 98 % Linda Ginty Other [employer] Other 09-15-2021 12:10-0500 Systolic blood pressure 138 mm[Hg] Linda Baires Other [employer] Other 09-28-2020 10:15-0500 BP Diastolic 86 mm[Hg] [facility] [place] 09-28-2020 10:15-0500 BP Systolic 125 mm[Hg] [facility] [place] 09-28-2020 10:15-0500 Pulse (Heart Rate) 72 /min [place] 09-28-2020 10:15-0500 Respiratory Rate 16 /min [place], [place] 09-28-2020 09:59-0500 Body Temperature 97.5 [degF] [place] 09-28-2020 09:59-0500 Pulse Oximetry 96 % [place] 09-28-2020 08:10-0500 BMI (Body Mass Index) 49.72 kg/m2 [place] 09-28-2020 08:10-0500 Body weight 144 [place] 09-28-2020 08:10-0500 Height 170.2 cm [place] Encounters Encounter Date Encounter Type Care Provider Facility Start: 12-03-2023 End: 12-03-2023 ambulatory LAKEISHA AICHHOLZ Not Available Start: 10-01-2023 End: 10-01-2023 ambulatory LAKEISHA AICHHOLZ Not Available Start: 01-22-2023 End: 01-23-2023 ambulatory TOOL AND 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 INSPECTOR LAKEISHA AICHHOLZ Facility:[facility] Start: 12-18-2022 End: 12-19-2022 ambulatory TOOL AND DIE INSPECTOR LAKEISHA AICHHOLZ Facility:[facility] Start: 12-04-2022 End: 12-04-2022 ambulatory Annette Strickland Other [employer] Other Start: 12-04-2022 Office outpatient vi sit 25 minutes Annette Strickland [facility] Start: 10-28-2022 End: 10-29-2022 ambulatory TOOL AND DIE INSPECTOR LAKEISHA BONNERZ Facility:[facility] Start: 08-06-2022 End: 08-06-2022 ambulatory Liliana Morfin Other [employer] Other Start: 08-06-2022 Office outpatient vi sit 15 minutes Liliana Morfin [facility] Start: 07-18-2022 End: 07-19-2022 ambulatory TOOL AND DIE INSPECTOR LAKEISHA AICTristaHOLZ Facility:[facility] Start: 07-14-2022 End: 07-15-2022 ambulatory TOOL AND DIE INSPECTOR LAKEISHA BINHOLZ Facility:[facility] Start: 05-07-2022 End: 05-08-2022 ambulatory TOOL AND DIE INSPECTOR LAKEISHA AICTristaHOLZ Facility:[facility] Start: 04-23-2022 End: 04-24-2022 ambulatory TOOL AND DIE INSPECTOR LAKEISHA BINHOLZ Facility:[facility] Start: 04-11-2022 Encounter for genera l adult medical examination without abnormal findings TOOL AND DIE INSPECTOR LAKEISHA ALAN [facility] Start: 04-08-2022 End: 04-09-2022 ambulatory TOOL AND DIE INSPECTOR LAKEISHA DAYANNA Facility:[facility] Start: 04-08-2022 End: 04-09-2022 Encounter for general adult medical examination without abnormal findings TOOL AND DIE INSPECTOR LAKEISHA DAYANNA Facility:[facility] Start: 03-16-2022 End: 03-16-2022 ambulatory Annette Homer Other [employer] Other Start: 03-16-2022 Office outpatient vi sit 15 minutes Annette Homer [facility] Start: 03-15-2022 End: 03-16-2022 ambulatory TOOL AND DIE INSPECTOR LAKEISHA BINHOLZ Facility:[facility] Start: 09-29-2021 End: 09-29-2021 ambulatory Annette Homer Other [employer] Other Start: 09-29-2021 Office outpatient vi sit 15 minutes Annette Homer [facility] Start: 09-15-2021 End: 09-15-2021 ambulatory Linda Baires Other [employer] Other Start: 09-15-2021 Office outpatient vi sit 25 minutes Linda Olverastephanie [facility] Start: 09-28-2020 End: 09-28-2020 [facility] Start: 09-28-2020 End: 09-28-2020 Subsequent hospital visit by physician Fortunato Card Phone: [facility] Start: 09-24-2020 End: 09-29-2020 Patient encounter procedure [facility] Start: 09-24-2020 End: 09-28-2020 Subsequent hospital visit by physician Kristian [email or web address] Pat Screening Schedule [facility] PRE [facility]MIT Comment on above: Preoperative testing Start: 07-09-2020 End: 07-14-2020 Patient encounter procedure [facility] Start: 07-09-2020 End: 07-13-2020 Subsequent hospital visit by physician Kristian Covid19 Pat Screening Schedule [facility] Laboratory Comment on above: Current nicotine use ; Essential hypertension; QUITA (obstructive sleep apnea); Arthritis; Anxiety and depression; Gastroesophageal reflux disease without esophagitis; Obesity, Class III, BMI 40-49.9 (morbid obesity) ([facility]); Fibromyalgia Preop testing Start: 04-18-2020 End: 04-19-2020 Patient encounter procedure FORTUNATO Kunal [facility] Start: 04-18-2020 End: 04-18-2020 Subsequent hospital visit by physician Kristian [facility] Comment on above: Essential hypertensi on; QUITA (obstructive sleep apnea); Arthritis; Anxiety and depression; Gastroesophageal reflux disease without esophagitis; Obesity, Class III, BMI 40-49.9 (morbid obesity) (HCC); Fibromyalgia; Obstructive sleep apnea; Morbid obesity with BMI of 45.0-49.9, adult (HCC) Start: 12-17-2018 End: 12-17-2018 Patient encounter procedure LETICIA RILEY Facility:[facility] Start: 12-15-2018 Patient encounter procedure LETICIA RILEY Facility:7 Start: 06-01-2018 Patient encounter procedure NATE HERRON Facility:[facility] [employer] Start: 05-05-2018 Patient encounter procedure NATE HERRON Facility:[id number] Start: 05-03-2018 Patient encounter procedure NATE HERRON Facility:[id number] Start: 05-03-2018 Patient encounter Sam Momin lity:[id number] Procedures Date Procedure Procedure Detail Performing Clinician Start: 09-28-2020 DISCHARGE PATIENT JABARI URIOSTEGUI Start: 09-28-2020 Level iv surg pathol ogy gross&microscopic exam FORTUNATO URIOSTEGUI Start: 09-28-2020 Continuous pulse oximetry FORTUNATO URIOSTEGUI Start: 09-28-2020 INITIATE OXYGEN THER APY PROTOCOL FORTUNATO URIOSTEGUI Start: 09-28-2020 BEDREST FORTUNATO PAWEL PERREA Start: 09-28-2020 ENCOURAGE DEEP BREAT MARY AND COUGHING FORTUNATO URIOSTEGUI Start: 09-28-2020 NOTIFY PHYSICIAN (SPECIFY) FORTUNATO URIOSTEGUI Start: 09-28-2020 NURSING COMMUNICATION Raeann SINGHLEELA MAURILIO Start: 09-28-2020 VITAL SIGNS FORTUNATO PAWEL PERERA Start: 09-24-2020 COVID-19 FORTUNATO RIZZOTING Start: 09-24-2020 COVID-19 Moises rubio Work Phone: Start: 07-09-2020 Drug screen class list a FORTUNATO URIOSTEGUI Start: 07-09-2020 COVID-19 AMBULATORY GRE GORStephanie URIOSTEGUI Start: 07-09-2020 Assay of nicotine JABARI URIOSTEGUI Start: 07-09-2020 Drug screen class list a Maya Bender Work Phone: Start: 07-09-2020 COVID-19 AMBULATORY Bec [place] Dawn Start: 04-18-2020 Cyanocobalamin vitamin b-12 FORTUNATO URIOSTEGUI Start: 04-18-2020 25 hydroxy includes fractions if performed FORTUNATO URIOSTEGUI Start: 04-18-2020 Assay of ferritin JABARI URIOSTEGUI Start: 04-18-2020 Assay of free thyroxine FORTUNATO URIOSTEGUI Start: 04-18-2020 Assay of magnesium LUCIAN URIOSTEGUI Start: 04-18-2020 Assay of nicotine JABARI URIOSTEGUI Start: 04-18-2020 Assay of parathormone G FRANCISCOLEELA URIOSTEGUI Start: 04-18-2020 Assay of thiamine-vi tamin [...] JJ URIOSTEGUI Start: 04-18-2020 Lipid panel FORTUNATO ARMAS MATTHIASTING Start: 04-18-2020 VITAMIN B12 & FOLATE Gr sylvia Uriostegui Work Phone: Start: 04-18-2020 25 hydroxy includes fractions if performed Fortunato Uriostegui Work Phone: Start: 04-18-2020 Assay of ferritin Jabaridella Syed Maurilio Work Phone: Start: 04-18-2020 Assay of free thyroxine Fortunato Uriostegui Work Phone: Start: 04-18-2020 Assay of magnesium Lucian leela Kunal Maurilio Work Phone: Start: 04-18-2020 Assay of parathormone G jj Uriostegui Work Phone: Start: 04-18-2020 Assay of thyroid stimulating hormone tsh Fortunato Uriostegui Work Phone: Start: 04-18-2020 Blood count complete auto&auto difrntl wbc Fortunato Uriostegui Work Phone: Start: 04-18-2020 Comprehensive metabo lic panel Fortunato Uriostegui Work Phone: Start: 04-18-2020 Hemoglobin glycosylated a1c Fortunato Uriostegui Work Phone: Start: 04-18-2020 Iron binding capacity G jj Uriostegui Work Phone: Start: 04-18-2020 Lipid panel Fortunato Uriostegui Work Phone: Plan of Treatment Date Care Activity Detail Author Start: 04-18-2021 [facility]inine [facility] [place] [place] Start: 04-18-2021 Potassium monitoring Potassium monitoring [facility] [employer] [place], [place] Start: 11-21-2020 End: 11-21-2020 Office Visit 11/21/2020 Office Visit Bariatrics Fortunato Uriostegui, DO [address] [facility] [address] [place] [address] [facility] Start: 10-24-2020 End: 10-24-2020 Office Visit 10/24/2020 Office Visit Bariatrics Maya Bender 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 [address] [facility] [address] [place] [address] [facility] Start: 08-22-2020 End: 08-22-2020 Office Visit 08/22/2020 Office Visit Bariatrics Maya Bender 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 [address] [facility] [address] [place] [phone] [facility] Start: 08-16-2020 End: 08-16-2020 Nurse Only 08/16/2020 Nurse Only Bariatrics [facility] Invasive Bariatric Surg Start: 07-25-2020 End: 07-25-2020 Office Visit 07/25/2020 Office Visit BariatricMaya Padilla 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 [address] [facility] [address] [place] [phone] [facility] Start: 07-13-2020 End: 07-13-2020 Hospital Encounter [facility] [place] Comment on above: EGD ESOPHAGOGASTRODUODENOSCOPY Start: 07-12-2020 End: 07-12-2020 Nurse Only 07/12/2020 Nurse Only Bariatrics [facility] Min Invasive Bariatric Surg Start: 06-20-2020 End: 06-20-2020 Office Visit 06/20/2020 Office Visit Bariatrics Maya Bender, 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 [address] [facility] [address] [place] [phone] [facility] Start: 06-12-2020 Influenza vaccination Flu vaccine (#1) [place] Start: 05-23-2020 End: 05-23-2020 Office Visit 05/23/2020 Office Visit Bariatrics Fortunato Uriostegui, DO [address] [facility] [address] [place] [address] [facility] Start: 2008 Screening for malignant neoplasm of cervix Cervical cancer screen [place] Start: 2006 DTaP/Tdap/Td vaccine (1 - Tdap) DTaP/Tdap/Td vaccine (1 - Tdap) [place] Start: 2002 HIV screening HIV screen [place] Start: 1993 Pneumococcal 0-64 years Vaccine (1 of 1 - PPSV23) Pneumococcal 0-64 years Vaccine (1 of 1 - PPSV23) [place] Start: 1988 Varicella vaccine (1 of 2 - 2-dose childhood series) Varicella vaccine (1 of 2 - 2-dose childhood series) [place] Start: 1987 Creatinine measurement Creatinine monitoring [place] Start: 1987 Potassium monitoring Potassium monitoring [place] End: 04-18-2020 Nicotine, Blood Nicotine, Blood Lab Routine Essential hypertension QUITA (obstructive sleep apnea) Arthritis Anxiety and depression Gastroesophageal reflux disease without esophagitis Obesity, Class III, BMI 40-49.9 (morbid obesity) (HCC) Fibromyalgia 1 Occurrences starting 04/18/2020 until 04/18/2020 [place] Comment on above: 1 Occurrences starting 04/18/2020 until 04/18/2020 Nicotine, Blood [place], [place] End: 07-09-2020 Nicotine, Blood Nicotine, Blood Lab Routine Current nicotine use 1 Occurrences starting 07/09/2020 until 07/09/2020 [place] Comment on above: 1 Occurrences starting 07/09/2020 until 07/09/2020 Oxygen therapy [Minimum Data Set ] Initiate Oxygen Therapy Protocol Respiratory Care Routine Daily until discontinued starting 09/28/2020 [place] Comment on above: Daily until discontinued starting 2019 Surgical Pathology Surgical Path ology Lab Routine Release Upon Ordering for 1 Occurrences starting 09/28/2020 [place] Comment on above: Release Upon Ordering for 1 Occurrences starting 09/28/2020 End: 04-18-2020 Vitamin A Vitamin A Lab Routine Obstructive sleep apnea Morbid obesity with BMI of 45.0-49.9, adult (HCC) 1 Occurrences starting 04/18/2020 until 04/18/2020 [place] Comment on above: 1 Occurrences starting 04/18/2020 until 04/18/2020 Vitamin A Vitamin A Lab Ro utine Obstructive sleep apnea Morbid obesity with BMI of 45.0-49.9, adult (HCC) 04/18/2020 10:16 AM EDT [place] End: 04-18-2020 Vitamin B1 Vitamin B1 Lab Routine Obstructive sleep apnea Morbid obesity with BMI of 45.0-49.9, adult (HCC) 1 Occurrences starting 04/18/2020 until 04/18/2020 [place] Comment on above: 1 Occurrences starting 04/18/2020 until 04/18/2020 Vitamin B1 Vitamin B1 Lab R outine Obstructive sleep apnea Morbid obesity with BMI of 45.0-49.9, adult (HCC) 04/18/2020 10:16 AM EDT [place] End: 04-18-2020 Zinc Zinc Lab Routine Obstructive sleep apnea Morbid obesity with BMI of 45.0-49.9, adult ([facility]) 1 Occurrences starting 04/18/2020 until 04/18/2020 [place] Comment on above: 1 Occurrences starting 04/18/2020 until 04/18/2020 Zinc Zinc Lab Routine Obstructive sleep apnea Morbid obesity with BMI of 45.0-49.9, adult ([facility]) 04/18/2020 10:16 AM EDT [place] Payers Date Payer Category Payer Unknown [facility] MEDICAID xxxxxxxxxxx 2020-Present [phone] CLAIMS DEPARTMENT [address] [place] [address] xxxxxxxxxxx [id number] 1987 Unknown [id number] [id number]5 1987 Unknown [id number] 2.16.840.1.345234.3.579.2.355 1987 Unknown [id number] 2.16.840.1.834739.3.579.2.355 1987 Unknown [id number] 2.16.840.1.366170.3.579.2.355 1987 Unknown [id number] 2.16.840.1.358598.3.579.2.355 1987 Unknown [id number] 2.16.840.1.821888.3.579.2.173 1987 Unknown [id number] 2.16.840.1.186830.3.579.2.173 1987 Unknown [id number] 2.16.840.1.273208.3.579.2.173 1987 Unknown [id number] 2.16.840.1.097710.3.579.2.173 1987 Unknown [id number] 2.16.840.1.446552.3.579.2.175 1987 Unknown [id number] 2.16.840.1.910400.3.579.2.593 1987 Unknown [id number] 2.16.840.1.345306.3.579.2.593 1987 Unknown [id number] 2.16.840.1.200352.3.579.2.593 1987 Unknown [id number] 2.16.840.1.457891.3.579.2.593 1987 Unknown [id number] 2.16.840.1.651028.3.579.2.593 1987 Unknown [id number] 2.16.840.1.093117.3.579.2.593 1987 Unknown [id number] 2.16.840.1.865655.3.579.2.593 1987 Unknown [id number] 2.16.840.1.118951.3.579.2.593 1987 Unknown [id number] 2.16.840.1.424109.3.579.2.593 1987 Unknown [id number] 2.16.840.1.318917.3.579.2.1259 1987 Unknown [id number] 2.16.840.1.876364.3.579.2.1259 1959 Unknown [id number] 1959 Unknown [id number] 2.16.840.1.066248.19 Self-pay Self Pay [id number] Social History Date Type Detail Facility Tobacco smoking stat [facility] Unknown if ever smoked [facility] Start: 1987 Sex Assigned At Female F [facility] Start: 04-18-2020 End: 06-20-2020 Tobacco smoking status NHIS Current every day sm[place] Start: 04-18-2020 End: 09-28-2020 Alcohol intake Current drinker of alcohol (finding) [place] Start: 03-23-2020 History SDOH Alcohol Frequency 2 [place] Start: 03-23-2020 Alcohol Comment yearly [place], [place] Sex Assigned At Not on file [place] Exposure to SARS-CoV -2 (event) Unable to assess [place] Start: 06-20-2020 End: 09-28-2020 Tobacco use and exposure Never used [place] Start: 09-28-2020 Tobacco smoking stat [facility] Former smoker [place] End: 07-21-2020 History of tobacco use Current [place] Start: 09-28-2020 Cigarettes smoked current (pack per day) - Reported [place] Start: 09-25-2020 Alcohol Comment RARELY [place] Exposure to SARS-CoV -2 (event) Not sure [place] Sex Assigned At Sex Assigned At Bir th [employer] Other Goals Date Patient Goal Desired Activity [...] should improve within the next 4-7 days. [employer] Other Evaluation note 08-06-2022 Note Date & [...] no improvement in 2 to 3 days [employer] Other Evaluation note 03-16-2022 Note Date & [...] if symptoms worsen or new symptoms occur. [email or web address] Other Evaluation note 09-29-2021 Note Date & [...] care instructions given in writting by [facility] document. 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 Follow up with PCP or UC if no improvement in the next 2-3 days. Immediate eval for severe ear pain, severe headache, neck pain/stiffness, pain, erythema, or redness behind the ear, fever, N/V, hearing loss, fever, lethargy, or any other new or concerning symptoms. Patient verbalizes understanding and is agreeable to treatment plan [email or web address] Other History general Narrative - Reported Note Date & Type Note Facility History general Narrative - Reported Type Medical History anxiety Medical History bipolar Medical History hypertension Surgical History bunion surgery 9 yrs Surgical History bunion surgery 12 years Surgical History clogged tear duct 2 years Surgical History laparoscopy Surgical History heart catheterization Hospitalization History pneumonia 18 mos [email or web address] Other History general Narrative - Reported Note Date & Type Note Facility History general Narrative - Reported Type Medical History anxiety Medical History bipolar Medical History hypertension Medical History hypocalcemia Surgical History bunion surgery 9 yrs Surgical History bunion surgery 12 years Surgical History clogged tear duct 2 years Surgical History laparoscopy Surgical History heart catheterization Hospitalization History pneumonia 18 mos [email or web address] Other Summary Purpose Family History No Family History Records FoundNo Family History Records FoundNo Family History Records FoundNo Family History Records FoundNo Family History Records FoundNo Family History Records FoundNo Family History Records FoundNo Family History Records Found Advance Directives No Advanced Directives Records FoundDocuments on File Type Date Recorded Patient Meeting Specialist Expl anation Advance Directives and Living Will Power of Metal [employer] Documents on File Type Date Recorded Patient Meeting Specialist Expl anation ACP-Advance Directive ACP-Power of [employer] Documents on File Type Date Recorded Patient Meeting Specialist Expl anation ACP-Advance Directive ACP-Power of [employer] Assessments Diagnosis Essential hypertension Unspecified essential hypertension QUITA (obstructive sleep apnea) Obstructive sleep apnea (adult) (pediatric) Arthritis Arthropathy, unspecified, site unspecified Anxiety and depression Dysthymic disorder Gastroesophageal reflux disease without esophagitis Esophageal reflux Obesity, Class III, BMI 40-49.9 (morbid obesity) ([facility]) Morbid obesity Fibromyalgia Mylagia and myositis, unspecified Obstructive sleep apnea Obstructive sleep apnea (adult) (pediatric) Morbid obesity with BMI of 45.0-49.9, adult ([facility]) Diagnosis Current nicotine use Essential hypertension Unspecified essential hypertension QUITA (obstructive sleep apnea) Obstructive sleep apnea (adult) (pediatric) Arthritis Arthropathy, unspecified, site unspecified Anxiety and depression Dysthymic disorder Gastroesophageal reflux disease without esophagitis Esophageal reflux Obesity, Class III, BMI 40-49.9 (morbid obesity) (HCC) Morbid obesity Fibromyalgia Mylagia and myositis, unspecified [...] questions, PLEASE call your doctor or the [facility] at No alcoholic beverages, [...] section and content) DATE CREATED AUTHOR 05/05/2018 [facility] DATE CREATED AUTHOR AUTHOR'S ORGANIZ ATION 12/23/2018 [facility] DATE CREATED AUTHOR AUTHOR'S ORGANIZ ATION 09/29/2020 [facility] DATE CREATED AUTHOR AUTHOR'S ORGANIZ ATION 12/03/[address] [facility] DATE CREATED AUTHOR AUTHOR'S ORGANIZ ATION 04/29/2021 [facility] DATE CREATED AUTHOR AUTHOR'S ORGANIZ ATION 03/17/2022 [facility] DATE CREATED AUTHOR AUTHOR'S ORGANIZ ATION 01/25/2023 [facility] DATE CREATED AUTHOR AUTHOR'S ORGANIZ ATION 12/11/2023 [facility] EPIC Reason for Visit (unrecogniz ed section and content) Status Reason Specialty Diagnoses / Procedures Re ferred By Contact Referred To Contact Diagnoses GERD (gastroesophageal reflux disease) Obesity GERD, OBESITY Procedures RI ESOPHAGOGASTRODUODENOSCOPY TRANSORAL DIAGNOSTIC EGD ESOPHAGOGASTRODUODENOSCOPY- GI UNIT SCHEDULED Fortunato Uriostegui DO [address] [facility] [address] [place] [address] [facility] Ordered Prescriptions (unrec ognized section and content) [...] BE BASED ON THE PRIMARY CLINICAL RECORDS. [email or web address] provides no warranty or guarantee of the accuracy or completeness of information in this document.
[2024-01-01 14:10] LABS: Age Gdln ACOG Testing Note (.); HPV Aptima Negative (Negative); IGP, Aptima HPV, rfx 16/18,45 Note (.)
== END 2023-12-29 20:19 | disposition home or self-care (01) ==
LOC: LAB 20:18
PROVIDERS: PCP Nurse Practitioner; Visit Provider Physician Assistant
DX: Z01.419 Encounter for gynecological examination (general) (routine) without abnormal findings (principal)
CPT/HCPCS: 87624; G0145

== ENCOUNTER 2023-12-30 08:51 | Outpatient (OUT) | payer OTHER, SELFPAY ==
--- OUTSIDE RECORDS SUMMARY | 2023-12-30 09:12 | XMS_ITS | CCD ---
Author Organization [facility] Care Team Providers Care Salesperson Fashion Accessories Name Role Phone Sam Collier Unavailable Unavailable GOPAL, KAMALESAYAHY Attending Unavai lable GOPAL, [facility] Primary Care Unavai lable GOPAL, KAMALESWARJackeline Attending Unavai lable GOPAL, [facility] Primary Care Unavai lable GOPALNATE Admitting Unavai lable GOPAL, NATE Attending Unavai lable GOPAL, [facility] Primary Care LETICIA Aly Attending Unavaila ble GOPAL, [facility] Primary Care Sav[place]vai lable LETICIA RILEY Admitting Unavaila ble LETICIA RILEY Attending Unavaila ble GOPAL, [facility] Primary Care Unakaiser Weaver Marcelo Primary [facility] Provider [facility] Primary [facility] Provider FORTUNATO URIOSTEGUI Referring Unavailable [facility] Primary Care Unavailable MAYA BENDER Referring Unavailable [facility] Primary Care Unavailable MOISES EHLM Referring Unavailable [facility] Primary Care Unavailable MOISES HELM Referring Unavailable [facility] Primary Care Unavailable FORTUNATO URIOSTEGUI Admitting Unavailable FORTUNATO URIOSTEGUI Attending Unavailable [facility] Primary Care Unavailable Annette Strickland Unavailable Linda Baires Unavailable Liliana Morfin Unavailable AICHHOLZ, 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 LAKEISHA Admitting Unavailable AICHHOLZ, 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 LAKEISHA Attending Unavailable AICHHOLZ, 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 [place] Primary Care Unavailable AICHHOLZ, 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 [place] Consulting Unavailable AICHHOLZ, 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 [place]KEISHA Admitting Unavailable AICHHOLZ, 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 [place] Attending Unavailable AICHHOLZ, 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 [place] Primary Care Unavailable AICHHOLZ, 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 [place] Consulting Unavailable AICHHOLZ, 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 LAKEISHA Admitting Unavailable AICHHOLZ, 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 [place]ISHA Attending Unavailable AICHHOLZ, 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 [place] Primary Care Unavailable AICHHOLZ, 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 [place] Consulting Unavailable AICHHOLZ, 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 [place] Primary Care Unavailable NATALI, TAI Admitting Unavailable NATALI, TAI Attending Unavailable NATALI, TAI Consulting Unavailable AICHHOLZ, 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 [place] Admitting Unavailable AICHHOLZ, 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 [place] Attending Unavailable AICHHOLZ, 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 [place] Primary Care Unavailable DR GOOD HENSON V Consulting Unavailable AICHHOLZ, 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 [place] Consulting Unavailable AICHHOLZ, 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 [place] Admitting Unavailable AICHHOLZ, 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 [place] Attending Unavailable AICHHOLZ, 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 [place] Primary Care Unavailable AICHHOLZ, 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 [place] Consulting Unavailable AICHHOLZ, 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 [place] Admitting Unavailable AICHHOLZ, 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 [place] Attending Unavailable AICHHOLZ, 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 [place] Primary Care Unavailable AICHHOLZ, 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 [place] Consulting Unavailable AICHHOLZ, 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 [place] Admitting Unavailable AICHHOLZ, 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 [place] Attending Unavailable AICHHOLZ, 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 [place] Primary Care Unavailable AICHHOLZ, 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 [place] Consulting Unavailable AICHHOLZ, 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 [place] Admitting Unavailable AICHHOLZ, 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 [place] Attending Unavailable AICHHOLZ, 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 [place] Primary Care Unavailable AICHHOLZ, 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 [place] Consulting Unavailable AICHHOLZ, LAKEISHA Attending Unavailable DALIA BUTLER Attending Unavailable AICHHOLZ, LAKEISHA Attending Unavailable Unavailable Unavailable Unavailable Allergies Allergy Classification Reported Allergen(s) Allergy Type Date of Onset Reaction(s) Facility (10 sources) Amoxicillin Drug Allergy 4 Rash, Nausea And Vomiting [place], [place] (10 sources) Latex Propensity to adverse reactions to drug 0 Rash [place], [place] (1 source) Amoxicillin Drug Allergy [facility] (1 source) Latex Drug allergy (disorder) [facility] Medications Current Medications Medication Drug Class(es) [...] / neomycin 3.5 mg/ml / polymyxin b 16367 unt/ml otic suspension (4 sources) Aminoglycoside Antibacterial, Polymyxin-class Antibacterial, Corticosteroid Start: 08-06-2022 Neomycin-Polymyx in-HC 3.5-74185-1 3 drops both ears Three times a day for 7 days Jul, Not-Taking Start: 09-15-2021 Neomycin-Polym yxin-HC 3.5-05407-5 4 drops into affected ear Otic Three [...] 0 04-17-2020 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 pyogenes Org specific cx Ql (Throat) Positive [employer] [facility] Other Quick Strep [employer] [facility] [employer] Other PROF CHEM 8 (BAS METB)on Anion gap [Moles/Vol] 13.1 mmol/L Normal [facility] Comment on above: Performed By: #### B MP #### [facility] [address] [place] [address] Dr. Claudia Myrick Calcium [Mass/Vol] 9.3 mg/dL Normal 8.5-10.1 [facility] Comment on above: Performed By: #### B MP #### [facility] [address] [address] [address] Claudia Myrick Chloride [Moles/Vol] 102 mmol/L Normal 98-107 [facility] Comment on above: Performed By: #### B MP #### [facility] [address] [address] [address] Claudia Myrick CO2 [Moles/Vol] 25.4 mmol/L Normal 21.0-32.0 [facility] Comment on above: Performed By: #### B MP #### [facility] [address] [address] [address] Claudia Myrick Creatinine [Mass/Vol] 0.75 mg/dL Normal 0.55-1.02 [facility] Comment on above: Performed By: #### B MP #### [facility] [address] [address] [address] Claudia Myrick EGFR-AF GREEK >60 Normal >=60 [facility] Comment on above: Performed By: #### B MP #### [facility] [address] [address] [address] Claudia Myrick EGFR-NON AF GREEK >60 Normal >=60 [facility] Comment on above: Performed By: #### B MP #### [facility] [address] [address] [address] Claudia Myrick Glucose [Mass/Vol] 90 mg/dL Normal 74-106 [facility] Comment on above: Performed By: #### B MP #### [facility] [address] [address] [address] Claudia Myrick Potassium [Moles/Vol] 4.5 mmol/L Normal 3.5-5.1 [facility] Comment on above: Performed By: #### B MP #### [facility] [address] [address] [address] Claudia Myrick Sodium [Moles/Vol] 136 mmol/L Normal 136-145 [facility] Comment on above: Performed By: #### B MP #### [facility] [address] [address] [address] Claudia Myrick Urea nitrogen [Mass/Vol] 15.0 mg/dL Normal 7.0-18.0 [facility] Comment on above: Performed By: #### B MP #### [facility] [address] [address] [address] Claudia Myrick Urea nitrogen/Creatinine [Mass ratio] 20.0 mg/mg Normal [facility] Comment on above: Performed By: #### B MP #### [facility] [address] [address] [address] Claudia Myrick PROF CHEM 8 (BAS METB)on Anion gap [Moles/Vol] 14.6 mmol/L Normal [facility] Comment on above: Performed By: #### B MP #### [facility] [address] [address] [address] Claudia Myrick Calcium [Mass/Vol] 8.7 mg/dL Normal 8.5-10.1 [facility] Comment on above: Performed By: #### B MP #### [facility] [address] [address] [address] Claudia Myrick Chloride [Moles/Vol] 104 mmol/L Normal 98-107 [facility] Comment on above: Performed By: #### B MP #### [facility] [address] [address] [address] Claudia Myrick CO2 [Moles/Vol] 23.7 mmol/L Normal 21.0-32.0 [facility] Comment on above: Performed By: #### B MP #### [facility] [address] [address] [address] Claudia Myrick Creatinine [Mass/Vol] 1.07 mg/dL Critically high 0.55-1.02 [facility] Comment on above: Performed By: #### B MP #### [facility] [address] [address] [address] Claudia Myrick EGFR-AF GREEK >60 Normal >=60 [facility] Comment on above: Performed By: #### B MP #### [facility] [address] [address] [address] Claudia Myrick EGFR-NON AF GREEK 58 mL/min/1.73m2 Critically low >=60 [facility] Comment on above: Performed By: #### B MP #### [facility] [address] [address] [address] Claudia Myrick Glucose [Mass/Vol] 129 mg/dL Critically high 74-106 [facility] Comment on above: Performed By: #### B MP #### [facility] [address] [address] [address] Claudia Myrick Potassium [Moles/Vol] 3.2 mmol/L Critically low 3.5-5.1 [facility] Comment on above: Performed By: #### B MP #### [facility] [address] [address] [address] Claudia Myrick Sodium [Moles/Vol] 140 mmol/L Normal 136-145 [facility] Comment on above: Performed By: #### B MP #### [facility] [address] [address] [address] Claudia Myrick Urea nitrogen [Mass/Vol] 9.0 mg/dL Normal 7.0-18.0 [facility] Comment on above: Performed By: #### B MP #### [facility] [address] [address] [address] Claudia Myrick Urea nitrogen/Creatinine [Mass ratio] 8.4 mg/mg Normal [facility] Comment on above: Performed By: #### B MP #### [facility] [address] [address] [address] Claudia Myrick PROF CHEM 8 (BAS METB)on Anion gap [Moles/Vol] 11.1 mmol/L Normal [facility] Comment on above: Performed By: #### B MP #### [facility] [address] [address] [address] Claudia Myrick Calcium [Mass/Vol] 9.5 mg/dL Normal 8.5-10.1 [facility] Comment on above: Performed By: #### B MP #### [facility] [address] [place] [address] Dr. Claudia Myrick Chloride [Moles/Vol] 104 mmol/L Normal 98-107 [facility] Comment on above: Performed By: #### B MP #### [facility] [address] [place] [address] Dr. Claudia Myrick CO2 [Moles/Vol] 29.9 mmol/L Normal 21.0-32.0 [facility] Comment on above: Performed By: #### B MP #### [facility] [address] [place] [address] Dr. Claudia Myrick Creatinine [Mass/Vol] 1.05 mg/dL Critically high 0.55-1.02 [facility] Comment on above: Performed By: #### B MP #### [facility] [address] [place] [address] Dr. Claudia Myrick EGFR-AF GREEK >60 Normal >=60 [facility] Comment on above: Performed By: #### B MP #### [facility] [address] [place] [address] Dr. Claudia Myrick EGFR-NON AF GREEK =60 Normal >=60 [facility] Comment on above: Performed By: #### B MP #### [facility] [address] [place] [address] Dr. Claudia Myrick Glucose [Mass/Vol] 122 mg/dL Critically high 74-106 [facility] Comment on above: Performed By: #### B MP #### [facility] [address] [place] [address] Dr. Claudia Myrick Potassium [Moles/Vol] 3.0 mmol/L Critically low 3.5-5.1 [facility] Comment on above: Performed By: #### B MP #### [facility] [address] [address] [address] Claudia Myrick Sodium [Moles/Vol] 143 mmol/L Normal 136-145 [facility] Comment on above: Performed By: #### B MP #### [facility] [address] [place] [address] Dr. Claudia Myrick Urea nitrogen [Mass/Vol] 11.0 mg/dL Normal 7.0-18.0 [facility] Comment on above: Performed By: #### B MP #### [facility] [address] [place] [address] Dr. Claudia Myrick Urea nitrogen/Creatinine [Mass ratio] 10.5 mg/mg Normal [facility] Comment on above: Performed By: #### B MP #### [facility] [address] [place] [address] Dr. Claudia Myrick POTASSIUMon 04-23-2022 Potassium [Moles/Vol] 3.2 mmol/L Critically low 3.5-5.1 [facility] Comment on above: Performed By: #### K #### [facility] [address] [place] [address] Dr. Claudia Myrick THYROGLOBULIN ABon Thyroglobulin Antibody <1.0 Normal 0.0-0.9 [facility] Comment on above: Result Comment: Thyr oglobulin Antibody measured by [employer] Methodology Performed By: #### T HYGAB #### [facility] [address] [place] [address] Dr. Claudia Myrick THYROID PEROXIDASE ABon 06- Thyroid Peroxidase (TPO) Ab <8 Normal 0-34 [facility] Comment on above: Performed By: #### T POAB #### [facility] [address] [address] [address] Claudia Myrick CBC AUTO DIFFon 04-08-2022 BASO # 0.1 103/ul Normal 0.0-0.1 [facility] Comment on above: Performed By: #### C BC #### [facility] [address] [address] [address] Claudia Myrick Basophils/100 WBC (Bld) 0.6 % Normal 0.2-2.0 [facility] Comment on above: Performed By: #### C BC #### [facility] [address] [address] [address] Claudia Myrick EO # 0.3 103/ul Normal 0.0-0.7 [facility] Comment on above: Performed By: #### C BC #### [facility] [address] [place] [address] Dr. Claudia Myrick Eosinophils/100 WBC (Bld) 4.2 % Normal 0.9-7.0 [facility] Comment on above: Performed By: #### C BC #### [facility] [address] [address] [address] Claudia Myrick Erythrocyte distribution width (RBC) [Ratio] 12.8 % Normal 11.0-15.0 [facility] Comment on above: Performed By: #### C BC #### [facility] [address] [place] [address] Dr. Claudia Myrick Hematocrit (Bld) [Volume fraction] 42.0 % Normal 36.0-48.0 [facility] Comment on above: Performed By: #### C BC #### [facility] [address] [address] [address] Claudia Myrick Hemoglobin (Bld) [Mass/Vol] 14.1 g/dL Normal 12.0-16.0 [facility] Comment on above: Performed By: #### C BC #### [facility] [address] [address] [address] Claudia Myrick IG # 0.05 10e3/ul Critically high 0.00-0.03 [facility] Comment on above: Performed By: #### C BC #### [facility] [address] [place] [address] Dr. Claudia Myrick IG % 0.6 % Critically high 0.0-0.5 [facility] Comment on above: Performed By: #### C BC #### [facility] [address] [place] [address] Dr. Claudia Myrick LYMPH # 1.7 103/ul Normal 1.2-3.8 [facility] Comment on above: Performed By: #### C BC #### [facility] [address] [place] [address] Dr. Claudia Myrick Lymphocytes/100 WBC (Bld) 21.1 % Normal 20.5-60.0 [facility] Comment on above: Performed By: #### C BC #### [facility] [address] [place] [address] Dr. Claudia Myrick MANUAL DIFF REQ NO Normal [facility] Comment on above: Performed By: #### C BC #### [facility] [address] [place] [address] Dr. Claudia Myrick MCH (RBC) [Entitic mass] 30.6 pg Normal 26.7-34.0 [facility] Comment on above: Performed By: #### C BC #### [facility] [address] [place] [address] Dr. Claudia Myrick MCHC (RBC) [Mass/Vol] 33.6 g/dL Normal 29.9-35.2 [facility] Comment on above: Performed By: #### C BC #### [facility] [address] [place] [address] Dr. Claudia Myrick MCV (RBC) [Entitic vol] 91.1 fL Normal 81.0-99.0 [facility] Comment on above: Performed By: #### C BC #### [facility] [address] [place] [address] Dr. Claudia Myrick MONO # 0.6 103/ul Normal 0.3-0.8 [facility] Comment on above: Performed By: #### C BC #### [facility] [address] [place] [address] Dr. Claudia Myrick Monocytes/100 WBC (Bld) 7.1 % Normal 1.7-12.0 [facility] Comment on above: Performed By: #### C BC #### [facility] [address] [place] [address] Dr. Claudia Myrick NEUT # 5.4 103/ul Normal 1.4-6.5 [facility] Comment on above: Performed By: #### C BC #### [facility] [address] [place] [address] Dr. Claudia Myrick Neutrophils/100 WBC (Bld) 66.4 % Normal 43.0-75.0 [facility] Comment on above: Performed By: #### C BC #### [facility] [address] [place] [address] Dr. Claudia Myrick Platelet mean volume (Bld) [Entitic vol] 11.1 fL Normal 9.5-13.5 [facility] Comment on above: Performed By: #### C BC #### [facility] [address] [place] [address] Dr. Claudia Myrick PLT 213 103/ul Normal 150-450 [facility] Comment on above: Performed By: #### C BC #### [facility] [address] [place] [address] Dr. Claudia Myrick RBC 4.61 106/ul Normal 4.20-5.40 [facility] Comment on above: Performed By: #### C BC #### [facility] [address] [place] [address] Dr. Claudia Myrick WBC 8.2 103/ul Normal 4.0-11.0 [facility] Comment on above: Performed By: #### C BC #### [facility] [address] [place] [address] Dr. Claudia Myrick FREE T3on 04-08-2022 FREE T3 3.34 pg/mlL Normal 2.18-3.98 [facility] Comment on above: Performed By: #### L IPID, FT3, TSH, CMP ####[facility] [id number] [id number] Claudia Myrick FREE T4on 04-08-2022 Free T4 [Mass/Vol] 0.96 ng/dL Normal 0.76-1.46 [facility] Comment on above: Performed By: #### F T4 ####[facility] [id number] [id number] Claudia Myrick GLYCOHEMOGLOBIN A1Con 2021 ADA RECOMMENDATION SEE BELOW Normal [facility] Comment on above: Result Comment: ADA RECOMMENDED LIMIT 4.0 - 6.0 ADA THERAPEUTIC TARGET < 7.0 ACTION SUGGESTED > 7.0 Performed By: #### A 1C #### [facility] [address] [address] [address] Claudia Myrick Glucose [Mass/Vol] 108 mg/dL Normal [facility] Comment on above: Performed By: #### A 1C #### [facility] [address] [address] [address] Claudia Myrick HbA1c (Bld) [Mass fraction] 5.4 % Normal 4.5-6.2 [facility] Comment on above: Performed By: #### A 1C #### [facility] [address] [address] [address] Claudia Myrick LIPID PROFILEon 04-08-2022 CHOL-HDL RATIO NORM SEE BELOW Normal [facility] Comment on above: Result Comment: 3.3 - 4.4 LOW RISK 4.4 - 7.1 AVERAGE RISK 7.1 - 11.0 MODERATE RISK >11.0 HIGH RISK Performed By: #### L IPID, FT3, TSH, CMP ####[facility] [id number] [id number][address] Claudia Myrick Cholesterol [Mass/Vol] 213 mg/dL Critically high <=200 [facility] Comment on above: Performed By: #### L IPID, FT3, TSH, CMP ####[facility] [id number] [id number][address] Claudia Myrick Cholesterol in HDL [Mass/Vol] 34 mg/dL Critically low 40-60 [facility] Comment on above: Performed By: #### L IPID, FT3, TSH, CMP ####[facility] [id number] [address]Dr. Claudia Myrick Cholesterol in LDL [Mass/Vol] 135.6 mg/dL Normal [facility] Comment on above: Performed By: #### L IPID, FT3, TSH, CMP ####[facility] [id number] [address]Dr. Claudia Myrick Cholesterol.total/C holesterol in HDL [Mass ratio] 6.3 {ratio} Normal [facility] Comment on above: Performed By: #### L IPID, FT3, TSH, CMP ####[facility] [id number] [address]Dr. Claudia Myrick HDL NORMAL > or = 60 mg/dl - LO W CARDIOVASCULAR RISK <40 mg/dl - HIGH CARDIOVASCULAR RISK Normal [facility] Comment on above: Performed By: #### L IPID, FT3, TSH, CMP ####[facility] [id number] [address]Dr. Claudia Myrick LDL CALC NORMAL SEE BELOW Normal [facility] Comment on above: Result Comment: <100 mg/dl OPTIMAL 100 - 129 mg/dl NEAR OR ABOVE OPTIMAL 130 - 159 mg/dl BORDERLINE HIGH 160 - 189 mg/dl HIGH >190 mg/dl VERY HIGH Performed By: #### L IPID, FT3, TSH, CMP ####[facility] [id number] [address]Dr. Claudia Myrick Triglyceride [Mass/Vol] 217 mg/dL Critically high <=150 [facility] Comment on above: Performed By: #### L IPID, FT3, TSH, CMP ####[facility] [id number] [address]Dr. Claudia Myrick VLDL CALC 43.4 mg/dL Normal [facility] Comment on above: Performed By: #### L IPID, FT3, TSH, CMP ####[facility] [id number] [address]Dr. Claudia Myrick PROF 14(COMP METB)on 022 Albumin [Mass/Vol] 3.6 g/dL Normal 3.4-5.0 [facility] Comment on above: Performed By: #### L IPID, FT3, TSH, CMP ####[facility] [id number] [address]Dr. Claudia Myrick Albumin/Globulin [Mass ratio] 1.1 {ratio} Normal [facility] Comment on above: Performed By: #### L IPID, FT3, TSH, CMP ####[facility] N[address]gx[address] [place], [place] [address]Dr. Claudia Myrick ALP [Catalytic activity/Vol] 75 U/L Normal 46-116 The [facility] Comment on above: Performed By: #### L IPID, FT3, TSH, CMP ####[facility] Lejjjqdpna[address] [place], [place] [address]Dr. Claudia Myrick ALT [Catalytic activity/Vol] 60 U/L Critically high 14-59 [facility] Comment on above: Performed By: #### L IPID, FT3, TSH, CMP ####[facility] Jyr[address]zdipf[address] [place], [place] [address]Dr. Claudia Myrick Anion gap [Moles/Vol] 12.1 mmol/L Normal [facility] Comment on above: Performed By: #### L IPID, FT3, TSH, CMP ####[facility] Jpyximrktb[address] [place], [place] [address]Dr. Claudia Myrick AST [Catalytic activity/Vol] 29 U/L Normal 15-37 [facility] Comment on above: Performed By: #### L IPID, FT3, TSH, CMP ####[facility] Gsyqqwsnm[address] [place], [place] [address]Dr. Claudia Myrick Bilirubin [Mass/Vol] 0.6 mg/dL Normal 0.2-1.0 [facility] Comment on above: Performed By: #### L IPID, FT3, TSH, CMP ####[facility] Ixaahbedwg[address] [place], [place] [address]Dr. Claudia Myrick Calcium [Mass/Vol] 8.9 mg/dL Normal 8.5-10.1 [facility] Comment on above: Performed By: #### L IPID, FT3, TSH, CMP ####[facility] [address] [place] [address]Dr. Claudia Myrick Chloride [Moles/Vol] 103 mmol/L Normal 98-107 [facility] Comment on above: Performed By: #### L IPID, FT3, TSH, CMP ####[facility] [address] [place] [address]Dr. Claudia Myrick CO2 [Moles/Vol] 27.8 mmol/L Normal 21.0-32.0 [facility] Comment on above: Performed By: #### L IPID, FT3, TSH, CMP ####[facility] [address] [place] [address]Dr. Claudia Myrick Creatinine [Mass/Vol] 0.86 mg/dL Normal 0.55-1.02 [facility] Comment on above: Performed By: #### L IPID, FT3, TSH, CMP ####[facility] Wnvxfaknyk[address] [place], [place] [address]Dr. Claudia Myrick EGFR-AF GREEK >60 Normal >=60 [facility] Comment on above: Performed By: #### L IPID, FT3, TSH, CMP ####[facility] Qmbyvfnxti[address] [place], [place] [address]Dr. Claudia Myrick EGFR-NON AF GREEK >60 Normal >=60 The [facility] Comment on above: Performed By: #### L IPID, FT3, TSH, CMP ####[facility] Vxizuuiyez[address] [place] [address]Dr. Claudia Myrick Globulin (S) [Mass/Vol] 3.2 g/dL Normal The [facility] Comment on above: Performed By: #### L IPID, FT3, TSH, CMP ####[facility] P[address]nsxswbtr[address] [place] [address]Dr. Claudia Myrick Glucose [Mass/Vol] 114 mg/dL Critically high 74-106 [facility] Comment on above: Performed By: #### L IPID, FT3, TSH, CMP ####[facility] Aqucaygyui[address] [place] [address]Dr. Claudia Myrick Potassium [Moles/Vol] 2.8 mmol/L Critically low 3.5-5.1 The [facility] Comment on above: Result Comment: TEST REPEATED CRITICAL VALUE VERIFIED Performed By: #### L IPID, FT3, TSH, CMP ####[facility] [address]brquljlf[address] [place] [address]Dr. Claudia Myrick Protein [Mass/Vol] 6.8 g/dL Normal 6.4-8.2 The [facility] Comment on above: Performed By: #### L IPID, FT3, TSH, CMP ####[facility] Ohnxnmhrsp20[address] [place] [address]Dr. Claudia Myrick Sodium [Moles/Vol] 138 mmol/L Normal 136-145 The [facility] Comment on above: Performed By: #### L IPID, FT3, TSH, CMP ####[facility] Aigvpc[address]pq[address] [place] [address]Dr. Claudia Myrick Urea nitrogen [Mass/Vol] 11.0 mg/dL Normal 7.0-18.0 The [facility] Comment on above: Performed By: #### L IPID, FT3, TSH, CMP ####[facility] Asegwqkyie[address] [place] [address]Dr. Claudia Myrick Urea nitrogen/Creatinine [Mass ratio] 12.8 mg/mg Normal The [facility] Comment on above: Performed By: #### L IPID, FT3, TSH, CMP ####[facility] Vutubxapwb[address] [place] [address]Dr. Claudia Myrick TSHon 04-08-2022 TSH 1.561 uIU/mL Normal 0.358-3.740 The [facility] Comment on above: Performed By: #### L IPID, FT3, TSH, CMP #### [facility] Laboratory [address] [address] [address] Claudia Myrick UA RANDOM W/MICROSCOPICon BACTERIA TRACE Abnormal NONE SEEN The [facility] Comment on above: Performed By: #### U AMIC ####[facility] Dsghiwvleq7[address] [place] [address]Dr. Sandiobey Myrick Bilirubin Ql (U) Negative Normal NEGATIVE [facility] Comment on above: Performed By: #### U AMIC ####[facility] Bcdqbvtlzd[address] [place] [address]Dr. Sandiobey Myrick CAST NONE SEEN Normal NONE SEEN The [facility] Comment on above: Performed By: #### U AMIC ####[facility] Cakyhzppyg[address] [place], [place] [address]Dr. Claudia Myrick Clarity (U) CLEAR Normal CLEAR [facility] Comment on above: Performed By: #### U AMIC ####[facility] Dsfboctryn[address] [place], [place] [address]Dr. Sandilan Myrick Color (U) YELLOW Normal YELLOW The [facility] Comment on above: Performed By: #### U AMIC ####[facility] Korauadxcj[address] [place], [place] [address]Dr. Sandiobey Myrick Crystals LM Nom (Urine sed) NONE SEEN Normal NONE SEEN The [facility] Comment on above: Performed By: #### U AMIC ####[facility] Wfpdyyjjvp[address] [place], [place] [address]Dr. Sandiobey Ramez Epithelial cells LM Ql (Urine sed) FEW Abnormal NONE SEEN /RARE The [facility] Comment on above: Performed By: #### U AMIC ####[facility] Pogkneloxl[address] [place], [place] [address]Dr. Claudia Myrick Glucose Ql (U) Negative Normal NEGATIVE The [facility] Comment on above: Performed By: #### U AMIC ####[facility] Mcqfhtgjto[address] [place], [place] [address]Dr. Claudia Myrick Hemoglobin Ql (U) Negative Normal NEGATIVE The [facility] Comment on above: Performed By: #### U AMIC ####[facility] Ufnwnehxhw[address] [place], [place] [address]Dr. Claudia Myrick Ketones Ql (U) Negative Normal NEGATIVE [facility] Comment on above: Performed By: #### U AMIC ####[facility] Henmpwemne[address] [place] [address]Dr. Claudia Myrick LEUKOCYTES Negative Normal NEGATIVE The [facility] Comment on above: Performed By: #### U AMIC ####[facility] Itnrnkpklk23[address] [place] [address]Dr. Claudia Myrick MUCOUS NONE SEEN Normal NONE SEEN The [facility] Comment on above: Performed By: #### U AMIC ####[facility] Cpuamxzlpf32[address] [place] [address]Dr. Claudia Myrick Nitrite Ql (U) Negative Normal NEGATIVE The [facility] Comment on above: Performed By: #### U AMIC ####[facility] Jvyyersnoe[address] [place] [address]Dr. Claudia Myrick pH (U) 7.0 [pH] Normal 5-9 The [facility] Comment on above: Performed By: #### U AMIC ####[facility] Nkeumbfyht15[address] [place] [address]Dr. Claudia Myrick RBC NONE SEEN Abnormal 0-2 The [facility] Comment on above: Performed By: #### U AMIC ####[facility] Macpyzfsde[address] [place] [address]Dr. Claudia Myrick SPEC GRAVITY 1.015 Normal 1.005-<=1.025 The [facility] Comment on above: Performed By: #### U AMIC ####[facility] Hyibmbbxpp34[address] [place] [address]Dr. Claudia Myrick UA PROTEIN Negative Normal NEGATIVE/ TRACE The [facility] Comment on above: Performed By: #### U AMIC ####[facility] Dgovaoyffy[address] [place] [address]Dr. Claudia Ramez Urobilinogen Qn (U) 0.2 {Brendan'U}/dL Normal 0.2 - 1. 0 The [facility] Comment on above: Performed By: #### U AMIC ####[facility] Itqq[address]epnr[address] [place] [address]Dr. Claudia Ramez WBC NONE SEEN Normal NONE SEEN The [facility] Comment on above: Performed By: #### U AMIC ####[facility] Lvlbmltvfq33[address] [place], [place] [address]XgRobert Myrick XR shoulder RT min 2V*on XR shoulder RT min 2V* [address] [address] XRay Report Signed Patient: Boo Bo MR#: [id number] : 1985 Acct:[id number] Age/Sex: 36 / F ADM Date: 03/16/22 Loc: XDUCLY Room: Type: [facility] Attending Dr: Annette MACKENZIE Ordering Provider: ANNETTE [...] Delia Kumar M.D.03/16/2022 1:37 PM Dictation Location: [place] [address] Transcribed By: [facility] 03/16/22 1336 Dictated By: Delia Kumar MD 03/16/22 1330 Signed By: 03/16/22 1337 Normal [facility] XR shoulder RT min 2V* [facility] Other XR shoulder RT min 2V* [facility] Other XR shoulder RT min 2V* [facility] [employer] Other XR shoulder RT min 2V* [place] [address] [facility] Other XR shoulder RT min 2V* XRay Report [facility] Other XR shoulder RT min 2V* Signed [facility] Other XR shoulder RT min 2V* Patient: Boo Bo MR#: [id number] [facility] Other XR shoulder RT min 2V* : 1985 Acct:[id number] [facility] Other XR shoulder RT min 2V* Age/Sex: 36 / F ADM Date: 03/16/22 [facility] Other XR shoulder RT min 2V* Loc: XDUCLY [facility] Other XR shoulder RT min 2V* Attending Dr: Annette Strickland [facility] Other XR shoulder RT min 2V* Ordering Provider: ANNETTE STRICKLANDDirk [facility] Other XR shoulder RT min 2V* Date of Service: 03/16/22 [facility] Other XR shoulder RT min 2V* XR/XR shoulder RT min 2V*: Acute pain of right shoulder [facility] Other XR shoulder RT min 2V* Copies to: ANNETTE STRICKLAND [facility] Other XR shoulder RT min 2V* RIGHT SHOULDER - 3 views [facility] Other XR shoulder RT min 2V* CLINICAL HISTORY: Right shoulder pain since pushing off a couch and hearing a pop last week. Pain [facility] Other XR shoulder RT min 2V* radiates down the arm. [facility] Other XR shoulder RT min 2V* COMPARISON: None [facility] Other XR shoulder RT min 2V* AP, Y and Grashey views were obtained. There is no evidence of fracture or dislocation. Minor [facility] Other XR shoulder RT min 2V* degenerative change is present at the acromioclavicular joint and greater tuberosity. There are no [facility] Other XR shoulder RT min 2V* significant soft tissue abnormalities. [facility] Other XR shoulder RT min 2V* XR/XR shoulder RT min 2V* [facility] Other XR shoulder RT min 2V* IMPRESSION: [facility] Other XR shoulder RT min 2V* NO ACUTE BONY FINDINGS. [facility] Other XR shoulder RT min 2V* Impression dictated by: Delia Kumar M.D.03/16/2022 1:37 PM [facility] Other XR shoulder RT min 2V* Dictation Location: [place] [address] [facility] Other XR shoulder RT min 2V* Transcribed By: HARRIS 03/16/22 [facility] Other XR shoulder RT min 2V* Dictated By: Delia Kumar MD 03/16/22 [facility] Other XR shoulder RT min 2V* Signed By: [facility] Other XR shoulder RT min 2V* 03/16/22 [facility] Other COVID Quick Testingon 2020 Result Negative [facility] Other Quick Fluon 09-29-2021 FLUAV Ab CF (S) [Titer] Negative [facility] Other FLUBV Ab CF (S) [Titer] Negative [facility] Other Physician Referralon 021 Physician Referral [id number] Normal [facility] Surgical Pathologyon 020 Surgical Pathology (NOTE) -- [...] BOO BO [facility] Rec: [id number] Path Number: [id number] [facility] ANATOMIC PATHOLOGY [address] [place] [phone] Normal [facility] Comment on above: Performed By: #### P PPVS #### [address] [id number] Client Coordinator: Bobby Flanagan MD COVID-19on 09-25-2020 SARS-CoV-2 [place], [place] SARS-CoV-2 Not Detected Not Detected [place], [place] Comment on above: The specimen is NEGATIVE for SARS-CoV-2, the novel coronavirus associated with COVID-19. A negative result does not rule out COVID-19. Terrie SARS-CoV-2 for use on the [employer] is a real-time RT-PCR test intended [...] this assay. Fact sheet for Healthcare Providers: https://www.fda.gov/media/584271/download Fact sheet for Patients: https://www.fda.gov/media/991280/download METHODOLOGY: RT-PCR SARS-CoV-2, Rapid [place], [place] Source .NASOPHARYNGEAL SWAB [place], [place] [id number] 09-25-2020 SARS-CoV-2 Not Detected Normal [facility] Comment on above: Result Comment: The specimen is NEGATIVE for SARS-CoV-2, the novel coronavirus associated with COVID-19. A negative result does not rule out COVID-19. Terrie SARS-CoV-2 for use on the Terrie [employer] is a real-time RT-PCR test intended [...] this assay. Fact sheet for Healthcare Providers: https://www.fda.gov/media/775089/download Fact sheet for Patients: https://www.fda.gov/media/994061/download METHODOLOGY: RT-PCR Performed By: #### C OVID #### [address] [address] Client Coordinator: Bobby Flanagan MD [facility] [address] [place] [address] Dr. [place], [place] [id number] Client Coordinator: Good Hernandez MD SARS-CoV-2 [facility] Comment on above: Performed By: #### C OVID #### [address] [address] Client Coordinator: Bobby Flanagan MD [facility] [address] [place] [address] Dr. [place], [place] [id number] Client Coordinator: Good Hernandez MD SARS-CoV-2,Rapid [facility] Comment on above: Performed By: #### C OVID #### [address] [address] Client Coordinator: Bobby Flanagan MD [facility] [address] [place] [address] Dr. [place], [place] [id number] Client Coordinator: Good Hernandez MD [id number] 09-24-2020 SARS-CoV-2 Source .NASOPHARYNGEAL SWAB [facility] Comment on above: Performed By: #### C OVID #### [address] [address] Client Coordinator: Bobby Flanagan MD [facility] [address] [place] [address] Dr. [place], [place] [id number] Client Coordinator: Good Hernandez MD Nicotineon 07-12-2020 4-TO-Gyoxnzjs <2 [facility] Comment on above: Performed By: #### A NICOT #### [facility] [address] [place] [address] Client Coordinator: Jeffy Benz MD Cotinine <2 [facility] Comment on above: Performed By: #### A NICOT #### [facility] [address] [place] [address] Client Coordinator: Jeffy Benz MD Nicotine <[address] [facility] Comment on above: Result Comment: (NOT [...] positive. Test developed and characteristics determined by [facility]. See Compliance Statement B: [employer] Performed By: [facility] [address] [place] [address] Radiologic Electronic Specialist: Ashley Price MD Performed By: #### A NICOT #### [facility] [address] [place] [address] Client Coordinator: Jeffy Benz MD [id number] 07-12-2020 SARS-CoV-2 Not Detected Normal Not Detected [facility] Comment on above: Result Comment: (NOT E) This nucleic acid amplification test was developed and its performance characteristics determined by [facility]. Nucleic acid amplification tests include PCR and [...] detected) result in this assay. Performed At: [facility] [address] [place], [place] [id number] Latricia Barrera MD Ph:[phone] Performed By: #### Nicholas AU #### [facility] [address] [place] [address] Client Coordinator: Omari Fisher MD COVID-19 Ambulatoryon 2019 SARS-CoV-2, ELVIN Not Detected Not Detected [place], [place] Comment on above: (NOTE) This nucleic acid amplification test was developed and its performance characteristics determined by [facility]. Nucleic acid amplification tests include PCR and [...] detected) result in this assay. Performed At: [facility] [address] [place], [place] [id number] Latricia Barrera MD Ph:[phone] Drug Scr, Abuse, Uron 2019 Amphetamine(s),Ur Negative Normal NEG [facility] Comment on above: Performed By: #### D AU #### [facility] [address] [place] [address] Client Coordinator: Omari Fisher MD Barbiturate(s),Ur Negative Normal [facility] Comment on above: Performed By: #### D AU #### [facility] [address] [place] [address] Client Coordinator: Omari Fisher MD Base excess Calc (Bld) [Moles/Vol] Negative Normal [facility] Comment on above: Performed By: #### D AU #### [facility] [address] [place] [address] Client Coordinator: Omari Fisher MD Benzodiazepine(s) Negative Normal [facility] Comment on above: Performed By: #### D AU #### [address] [place], [place] [id number] Client Coordinator: Omari Fisher MD Buprenorphrine, Ur Negative Normal [facility] Comment on above: Performed By: #### D AU #### [facility] [address] [place] [address] [place] [address] Client Coordinator: Omari Fisher MD Cannabinoid(s),Ur Negative [facility] Comment on above: Performed By: #### D AU #### [facility] [address] [place] [address] [place] [address] Client Coordinator: Omari Fisher MD Methadone Ql (U) Negative Normal [facility] Comment on above: Performed By: #### D AU #### [facility] [address] [place] [address] Client Coordinator: Omari Fisher MD Methamphetamine, Ur Negative [facility] Comment on above: Performed By: #### D AU #### [facility] [address] [place], [place] [id number] Client Coordinator: Omari Fisher MD Opiate(s), Ur Negative Normal [facility] Comment on above: Performed By: #### D AU #### [facility] [address] [place] [address] Client Coordinator: Omari Fisher MD Oxycodone, Urine Negative Normal NEG [facility] Comment on above: Performed By: #### D AU #### [facility] [address] [place], [place] [id number] Client Coordinator: Omari Fisher MD Phencyclidine, Ur Negative Normal NEG [facility] Comment on above: Performed By: #### D AU #### [facility] [address] [place], [place] [id number] Client Coordinator: Omari Fisher MD Propoxyphene,Urine Negative Normal NEG [facility] Comment on above: Performed By: #### D AU #### [facility] [address] [place] [address] Client Coordinator: Omari Fisher MD Tricyclic antidepressants Screen Ql (U) Negative Normal [facility] Comment on above: Result Comment: Drug screen results are to be used for medical purposes only. All positive results are unconfirmed. Testing for employment or legal uses should be sent to a reference laboratory for confirmation. Performed By: #### D AU #### [facility] [address] [place] [address] [place] [address] Client Coordinator: Omari Fisher MD Interpretive Info NOT REPORTED Normal [facility] Comment on above: Performed By: #### D AU #### [facility] [address] [place] [address] Client Coordinator: Omari Fisher MD MDMA, Urine NOT REPORTED Normal NEG [facility] Comment on above: Performed By: #### D AU #### [facility] [address] [place], [place] [id number] Client Coordinator: Omari Fisher MD Urine Drug Screenon 07-09-20 20 Amphetamine Screen, Ur Negative NEGATIVE [facility] [place], [place] Barbiturate Screen, Ur Negative NEGATIVE [facility] [place], [place] Benzodiazepine Screen, Urine Negative NEGATIVE [facility] [place] Buprenorphine Urine Negative NEGATIVE [facility] [place] Cannabinoid Scrn, Ur Negative NEGATIVE [facility] [place] Cocaine Metabolite, Urine Negative NEGATIVE [facility] [place] MDMA, Urine NOT REPORTED NEGATIVE [facility] [place] [place] Methadone Screen, Urine Negative NEGATIVE [facility] [place] Methamphetamine, Urine Negative NEGATIVE [facility] [place] Opiates, Urine Negative NEGATIVE [facility] [place] Oxycodone Screen, Ur Negative NEGATIVE [facility] [place] Phencyclidine, Urine Negative NEGATIVE [facility] [place] Propoxyphene, Urine Negative NEGATIVE [facility] [place] Test Information NOT REPORTED [facility] [place] Tricyclic Antidepressants, Urine Negative NEGATIVE [facility] [place] Comment on above: Drug screen results are to be used for medical purposes only. All positive results are unconfirmed. Testing for employment or legal uses should be sent to a reference laboratory for confirmation. Nicotineon 04-21-2020 5-PA-Ultgpohj 95 ng/mL [facility] Comment on above: Performed By: #### D AU #### [facility] [address] [place] [address] Client Coordinator: Omari Fisher MD Cotinine 190 ng/mL [facility] Comment on above: Performed By: #### D AU #### [facility] [address] [place] [address] Client Coordinator: Omari Fisher MD Nicotine 15 ng/mL [facility] Comment on above: Result Comment: (NOT E) Consistent with use of a nicotine-containing product within 48 hours of specimen collection. Nicotine is metabolized to cotinine and 0-WS-nimikwaw. INTERPRETIVE INFORMATION: Nicotine and Metabolites, Serum or [...] positive. Test developed and characteristics determined by [facility]. See Compliance Statement B: [employer] Performed By: [facility] [address] [place] [address] Radiologic Electronic Specialist: Jeffy Benz MD, [place] Performed By: #### D AU #### [facility] [address] [place] [address] Client Coordinator: Omari Fisher MD Vitamin B1on 04-21-2020 Vitamin B1 135 nmol/L Normal 70-[address] [facility] Comment on above: Result Comment: (NOT E) INTERPRETIVE INFORMATION: Vitamin B1, Whole Blood This assay measures the concentration of thiamine diphosphate (TDP), the primary active form of vitamin B1. Approximately 90 percent of vitamin B1 present in whole blood is TDP. Thiamine and thiamine monophosphate, which comprise the remaining 10 percent, are not measured. Test developed and characteristics determined by [facility]. See Compliance Statement B: [employer] Performed By: [facility] [address] [place] [address] Radiologic Electronic Specialist: Jeffy Benz MD, MS Performed By: #### D AU #### [address] [place] [address] Client Coordinator: Omari Fisher MD Vitamin Aon 04-20-2020 Interpretation Normal Normal [facility] Comment on above: Result Comment: (NOT E) Test developed and characteristics determined by [facility]. See Compliance Statement B: [employer] Performed By: [facility] [address] [place] [address] Radiologic Electronic Specialist: Jeffy Benz MD, MS Performed By: #### D AU #### [facility] [address] [place] [address] Client Coordinator: Omari Fisher MD Retinol (Vitamin A) 0.65 mg/L Normal 0.30-1.[address] [facility] Comment on above: Performed By: #### D AU #### [facility] [address] [place] [address] Client Coordinator: Omari Fisher MD Retinyl Palmitate 0.03 mg/L Normal 0.00-0.10 [facility] Comment on above: Performed By: #### D AU #### [facility] [address] [place] [address] Client Coordinator: Omari Fisher MD Zinc, Serumon 04-20-2020 Zinc, Serum 94.2 ug/dL Normal 60.0-120.[address] [facility] Comment on above: Result Comment: (NOT [...] absorption. Test developed and characteristics determined by [facility]. See Compliance Statement B: [email or web address] Performed By: [facility] [address] [place] [address] Radiologic Electronic Specialist: Jeffy Benz MD, MS Performed By: #### D AU #### [facility] [address] [place] [address] Client Coordinator: Omari Fisher MD B12/Folate Panelon 0 Cobalamin (Vitamin B12) [Mass/Vol] 324 pg/mL Normal 232-[address] [facility] Comment on above: Performed By: #### B 12FOL #### [facility] [address] [place], [place] [phone] Client Coordinator: Bobby Flanagan MD Folic Acid 14.3 ng/mL Normal >4.[address] [facility] Comment on above: Performed By: #### B 12FOL #### [facility] [address] [phone] Client Coordinator: Bobby Flanagan MD CBC Auto Differentialon Basophils (Bld) [#/Vol] 0.04 10*3/uL [place], [place] Basophils/100 WBC (Bld) 1 % 0 - 2 % [place] Differential Type NOT REPORTED [place] Eosinophils (Bld) [#/Vol] 0.37 10*3/uL [place] Eosinophils/100 WBC (Bld) 5 % High 1 - 4 % [place] Erythrocyte distribution width (RBC) [Ratio] 12.6 % 11.8 - 14.4 % [place] Hematocrit (Bld) [Volume fraction] 42.8 % 36.3 - 47.1 % [place] Hemoglobin (Bld) [Mass/Vol] 14.2 g/dL 11.9 - 15.1 g/dL [place] Immature granulocytes (Bld) [#/Vol] 0 % 0 [place] Immature granulocytes (Bld) [#/Vol] 10*3/uL [place] Interpretation and review of laboratory results Abnormal [place] Lymphocytes (Bld) [#/Vol] 1.80 10*3/uL [place] Lymphocytes/100 WBC (Bld) 25 % 24 - 43 % [place] MCH (RBC) [Entitic mass] 30.7 pg 25.2 - 33.5 pg [place] MCHC (RBC) [Mass/Vol] 33.2 g/dL 28.4 - 34.8 g/dL [place] MCV (RBC) [Entitic vol] 92.4 fL 82.6 - 102.9 fL [place] Monocytes (Bld) [#/Vol] 0.61 10*3/uL [place] Monocytes/100 WBC (Bld) 8 % 3 - 12 % [place] Platelet mean volume (Bld) [Entitic vol] 11.2 fL 8.1 - 13.5 fL [place] Platelets (Bld) [#/Vol] 201 10*3/uL [place] Platelets (Bld) [#/Vol] NOT REPORTED [place] RBC (Bld) [#/Vol] 4.63 10*6/uL 3.95 - 5.1 1 m/uL [place] RBC morphology finding Nom (Bld) NOT REPORTED [place] Segmented neutrophils/100 WBC (Bld) 61 % 36 - 65 % [place] Segs Absolute 4.41 [place] WBC (Bld) [#/Vol] 0.0 10*3/uL 0.0 per 10 0 WBC [place] WBC (Bld) [#/Vol] 7.3 10*3/uL [place] WBC Morphology NOT REPORTED [place], [place] CBC with Diffon 04-18-2020 Abs. Basophil 0.04 k/uL Normal 0.00-0.20 [facility] Comment on above: Performed By: #### F YURIY, FEBC, VD25, PTHNCA #### [facility] [address] [place], [place] [phone] Client Coordinator: Bobby Flanagan MD #### RENA LAWSON, MERLYN1, NATY #### [facility] [address] [place] [address] Client Coordinator: Jeffy Benz MD #### CP, GLYHGB, CDP, MG, LIPR #### [facility] [address] [place] [address] Client Coordinator: Omari Fisher MD Abs.Imm.Granulocyte <0.03 Normal 0.00-0.[address] [facility] Comment on above: Performed By: #### F YURIY, FEBC, VD25, PTHNCA #### [facility] [address] [place], [place] [phone] Client Coordinator: Bobby Flanagan MD #### AZJustin, RENA, AVITB1, AVITAS #### [facility] [address] [place], [place] [phone] Client Coordinator: Jeffy Benz MD #### CP, GLYHGB, CDP, MG, LIPR #### [address] [place] [phone] Client Coordinator: Omari Fisher MD Abs.Neutrophil (Seg) 4.41 k/uL Normal 1.50-8.[address] [facility] Comment on above: Performed By: #### F ABDULKADIR YAN, VD25, PTHNCA #### [address] [phone] Client Coordinator: Bobby Flanagan MD #### LULU, RENA, ASHLITB1, AVITAS #### [facility] [address] [place] [phone] Client Coordinator: Jeffy Benz MD #### CP, GLYHGB, CDP, MG, LIPR #### [address] [place] [phone] Client Coordinator: Omari Fisher MD Basophils/100 WBC (Bld) 1 % Normal 0-[address] [facility] Comment on above: Performed By: #### F ABDULKADIR YAN, VD25, PTHNCA #### [address] [phone] Client Coordinator: Bobby Flanagan MD #### AZJustin, ANDREICOT, AVITB1, AVITAS #### [facility] [address] [place] [address] Client Coordinator: Jeffy Benz MD #### CP, GLYHGB, CDP, MG, LIPR #### [address] [place] [address] Client Coordinator: Omari Fisher MD Eosinophils (Bld) [#/Vol] 0.37 10*3/uL Normal 0.00-0.[address] [facility] Comment on above: Performed By: #### F ABDULKADIR YAN, VD25, PTHNCA #### [address] [address] Client Coordinator: Bobby Flanagan MD #### RENA LAWSON AVITB1, NATY #### [facility] [address] [place] [address] Client Coordinator: Jeffy Benz MD #### CP, NERIB, CDP, MG, LIPR #### [facility] [address] [place] [address] Client Coordinator: Omari Fisher MD Eosinophils/100 WBC (Bld) 5 % High 1-[address] [facility] Comment on above: Performed By: #### ABDULKADIR BENSON, VD25, PTHNCA #### [address] [phone] Client Coordinator: Bobby Flanagan MD #### RENA LAWSON AVITB1, NATY #### [facility] [address] [place], [place] [phone] Client Coordinator: Jeffy Benz MD #### HANNAH, SUYAPA, CDP, MG, LIPR #### [facility] [address] [place] [address] Client Coordinator: Omari Fisher MD Erythrocyte distribution width (RBC) [Ratio] 12.6 % Normal 11.8-14.[address] [facility] Comment on above: Performed By: #### F ABDULKADIR YAN, VD25, PTHNCA #### [address] [phone] Client Coordinator: Bobby Flanagan MD #### RENA LAWSON AVITB1, NATY #### [facility] [address] [place] [address] Client Coordinator: Jeffy Benz MD #### CP, GLYHGB, CDP, MG, LIPR #### [address] [place] [address] Client Coordinator: Omari Fisher MD Hematocrit (Bld) [Volume fraction] 42.8 % Normal 36.3-47.[address] [facility] Comment on above: Performed By: #### F YURIY, FEBC, VD25, PTHNCA #### [address] [phone] Client Coordinator: Bobby Flanagan MD #### RENA LAWSON, MEGHAN, NATY #### [facility] [address] [place], [place] [phone] Client Coordinator: Jeffy Benz MD #### CP, GLYHGB, CDP, MG, LIPR #### [address] [place] [address] Client Coordinator: Omari Fisher MD Hemoglobin (Bld) [Mass/Vol] 14.2 g/dL Normal 11.9-15.[address] [facility] Comment on above: Performed By: #### F YURIY, FEBC, VD25, PTHNCA #### [address] [phone] Client Coordinator: Bobby Flanagan MD #### RENA LAWSON, MERLYN1, NATY #### [facility] [address] [place], [place] [phone] Client Coordinator: Jeffy Benz MD #### CP, GLYHGB, CDP, MG, LIPR #### [address] [place] [address] Client Coordinator: Omari Fisher MD Immature granulocytes (Bld) [#/Vol] 0 % Normal [address] [facility] Comment on above: Performed By: #### F YURIY, FEBC, VD25, PTHNCA #### [address] [address] Client Coordinator: Bobby Flanagan MD #### AZN, ANICOT, AVITB1, AVITAS #### [facility] [address] [place] [address] Client Coordinator: Jeffy Benz MD #### CP, GLYHGB, CDP, MG, LIPR #### [address] [place] [phone] Client Coordinator: Omari Fisher MD Lymphocytes (Bld) [#/Vol] 1.80 10*3/uL Normal 1.10-3.[address] [facility] Comment on above: Performed By: #### F YURIY, FEBC, VD25, PTHNCA #### [address] [address] Client Coordinator: Bobby Flanagan MD #### AZN, ANICOT, AVITB1, AVITAS #### [facility] [address] [place] [phone] Client Coordinator: Jeffy Benz MD #### CP, GLYHGB, CDP, MG, LIPR #### [address] [place], [place] [phone] Client Coordinator: Omari Fisher MD Lymphocytes/100 WBC (Bld) 25 % Normal 24-[address] [facility] Comment on above: Performed By: #### F YURIY, FEBC, VD25, PTHNCA #### [address] [address] Client Coordinator: Bobby Flanagan MD #### AZN, ANICOT, AVITB1, AVITAS #### [facility] [address] [place], [place] [phone] Client Coordinator: Jeffy Benz MD #### CP, GLYHGB, CDP, MG, LIPR #### [address] [place] [address] Client Coordinator: Omari Fisher MD MCH (RBC) [Entitic mass] 30.7 pg Normal 25.2-33.[address] [facility] Comment on above: Performed By: #### F YURIY, FEBC, VD25, PTHNCA #### [address] [phone] Client Coordinator: Bobby Flanagan MD #### AZN, ANICOT, AVITB1, AVITAS #### [facility] [address] [place] [address] Client Coordinator: Jeffy Benz MD #### CP, GLYHGB, CDP, MG, LIPR #### [address] [place] [phone] Client Coordinator: Omari Fisher MD MCHC (RBC) [Mass/Vol] 33.2 g/dL Normal 28.4-34.[address] [facility] Comment on above: Performed By: #### F YURIY, FEBC, VD25, PTHNCA #### [address] [phone] Client Coordinator: Bobby Flanagan MD #### AZJustin, ANDREICOSatya, AVITB1, AVITAS #### [facility] [address] [place] [address] Client Coordinator: Jeffy Benz MD #### CP, GLYHGB, CDP, MG, LIPR #### [address] [place] [phone] Client Coordinator: Omari Fisher MD MCV (RBC) [Entitic vol] 92.4 fL Normal 82.6-102.[address] [facility] Comment on above: Performed By: #### F YURIY, FEBC, VD25, PTHNCA #### [address] [place] [address] Client Coordinator: Bobby Flanagan MD #### RENA LAWSON AVITB1, ASHLITAAnna #### [facility] [address] [place], [place] [phone] Client Coordinator: Jeffy Benz MD #### CP, GLYHGB, CDP, MG, LIPR #### [address] [place], [place] [phone] Client Coordinator: Omari Fisher MD Monocytes (Bld) [#/Vol] 0.61 10*3/uL Normal 0.10-1.[address] [facility] Comment on above: Performed By: #### ABDULKADIR BENSON, VD25, PTHNCA #### [address] [address] Client Coordinator: Bobby Flanagan MD #### RENA LAWSON, ASHLITB1, AVITAS #### [facility] [address] [place] [address] Client Coordinator: Jeffy Benz MD #### CP, GLYHGB, CDP, MG, LIPR #### [address] [place] [phone] Client Coordinator: Omari Fisher MD Monocytes/100 WBC (Bld) 8 % Normal 3-[address] [facility] Comment on above: Performed By: #### F ABDULKADIR YAN, VD25, PTHNCA #### [address] [address] Client Coordinator: Bobby Flanagan MD #### RENA LAWSON AVITB1, ASHLITAAnna #### [facility] [address] [place] [address] Client Coordinator: Jeffy Benz MD #### CP, GLYHGB, CDP, MG, LIPR #### [address] [place], [facility]83 Client Coordinator: Omari Fisher MD Neutrophil (Seg) 61 % Normal 36-65 [facility] Comment on above: Performed By: #### F ABDULKADIR YAN, VD25, PTHNCA #### [id number] [place], [place] [phone] Client Coordinator: Bobby Flanagan MD #### RENA LAWSON AVITB1, NATY #### [facility] [address] [place], [place] [id number] Client Coordinator: Jeffy Benz MD #### CP, NERIB, CDP, MG, LIPR #### [address] [place] [address] Client Coordinator: Omari Fisher MD NRBC Automated 0.0 per [address] WBC Normal 0.[address] [facility] Comment on above: Performed By: #### ABDULKADIR BENSON, VD25, PTHNCA #### [address] [phone] Client Coordinator: Bobby Flanagan MD #### RENA LAWSON AVITB1, NATY #### [facility] [address] [place] [address] Client Coordinator: Jeffy Benz MD #### HANNAH, NERIB, CDP, MG, LIPR #### [facility] [address] [place], [facility]83 Client Coordinator: Omari Fisher MD Platelet mean volume (Bld) [Entitic vol] 11.2 fL Normal 8.1-13.[address] [facility] Comment on above: Performed By: #### F ABDULKADIR YAN, VD25, PTHNCA #### [address] [phone] Client Coordinator: Bobby Flanagan MD #### RENA LAWSON AVITB1, NATY #### [facility] [address] [place] [address] Client Coordinator: Jeffy Benz MD #### CP, GLYHGB, CDP, MG, LIPR #### [address] [place], [place] [phone] Client Coordinator: Omari Fisher MD Platelets (Bld) [#/Vol] 201 10*3/uL Normal 138-[address] [facility] Comment on above: Performed By: #### F YURIY, FEBC, VD25, PTHNCA #### [address] [phone] Client Coordinator: Bobby Flanagan MD #### AZN, ANDREICOSatya, AVITB1, AVITAS #### [facility] [address] [place] [address] Client Coordinator: Jeffy Benz MD #### CP, GLYHGB, CDP, MG, LIPR #### [address] [place] [address] Client Coordinator: Omari Fisher MD RBC (Bld) [#/Vol] 4.63 10*6/uL Normal 3.95-5.[address] [facility] Comment on above: Performed By: #### F YURIY, FEBC, VD25, PTHNCA #### [address] [address] Client Coordinator: Bobby Flanagan MD #### AZN, ANICOT, AVITB1, AVITAS #### [facility] [address] [place] [address] Client Coordinator: Jeffy Benz MD #### CP, GLYHGB, CDP, MG, LIPR #### [address] [place], [place] [phone] Client Coordinator: Omari Fisher MD WBC (Bld) [#/Vol] 7.3 10*3/uL Normal 3.5-11.[address] [facility] Comment on above: Performed By: #### F YURIY, FEBC, VD25, PTHNCA #### [facility] [address] [place] [address] Client Coordinator: Bobby Flanagan MD #### AZN, ANICOT, AVITB1, AVITAS #### [facility] [address] [place] [address] Client Coordinator: Jeffy Benz MD #### CP, GLYHGB, CDP, MG, LIPR #### [facility] [address] [place] [address] Client Coordinator: Omari Fisher MD Auto Diff Performed NOT REPORTED Normal [facility] Comment on above: Performed By: #### F YURIY, FEBC, VD25, PTHNCA #### [address] [address] Client Coordinator: Bobby Flanagan MD #### AZN, ANICOT, AVITB1, AVITAS #### [facility] [address] [place], [place] [phone] Client Coordinator: Jeffy Benz MD #### CP, GLYHGB, CDP, MG, LIPR #### [address] [place] [address] Client Coordinator: Omari Fisher MD Platelets (Bld) [#/Vol] NOT REPORTED Normal [facility] Comment on above: Performed By: #### F YURIY, FEBC, VD25, PTHNCA #### [address] [address] Client Coordinator: Bobby Flanagan MD #### AZN, ANICOT, AVITB1, AVITAS #### [facility] [address] [place] [address] Client Coordinator: Jeffy Benz MD #### CP, GLYHGB, CDP, MG, LIPR #### [facility] [address] [place] [address] [place] [place], [place] [phone] Client Coordinator: Omari Fisher MD RBC morphology finding Nom (Bld) NOT REPORTED Normal [facility] Comment on above: Performed By: #### F YURIY, FEBC, VD25, PTHNCA #### [address] [place], [place] [phone] Client Coordinator: Bobby Flanagan MD #### AZN, ANICOT, AVITB1, AVITAS #### [facility] [address] [place], [place] [phone] Client Coordinator: Jeffy Benz MD #### CP, GLYHGB, CDP, MG, LIPR #### [address] [place], [place] [phone] Client Coordinator: Omari Fisher MD WBC Morphology NOT REPORTED Normal [facility] Comment on above: Performed By: #### F YURIY, FEBC, VD25, PTHNCA #### [address] [address] Client Coordinator: Bobby Flanagan MD #### AZN, ANICOSatya, AVITB1, AVITAS #### [facility] [address] [place], [place] [phone] Client Coordinator: Jeffy Benz MD #### CP, GLYHGB, CDP, MG, LIPR #### [address] [place] [address] Client Coordinator: Omari Fisher MD Comp Metabolic Profon 2019 (cont.) Normal [facility] Comment on above: Result Comment: Aver age GFR for 30-39 years old: 107 mL/min/1.73sq m Chronic Kidney Disease: <60 mL/min/1.73sq m Kidney failure: <15 mL/min/1.73sq m eGFR calculated using average adult body mass. Additional eGFR calculator available at: http://www.globalrp[employer]multiple_crcl_2012.htm Performed By: #### F YURIY, FEBC, VD25, PTHNCA #### [address] [phone] Client Coordinator: Bobby Flanagan MD #### RENA LAWSON, AVITB1, AVITAS #### [facility] [address] [place] [address] [phone] Client Coordinator: Jeffy Benz MD #### CP, GLYHGB, CDP, MG, LIPR #### [address] [place] [address] Client Coordinator: Omari Fisher MD Albumin [Mass/Vol] 4.4 g/dL Normal 3.5-5.[address] [facility] Comment on above: Performed By: #### F YURIY, FEBC, VD25, PTHNCA #### [address] [phone] Client Coordinator: Bobby Flanagan MD #### LULU, RENA, AVITB1, AVITAS #### [facility] [address] [place] [address] Client Coordinator: Jeffy Benz MD #### CP, GLYHGB, CDP, MG, LIPR #### [address] [place] [address] Client Coordinator: Omari Fisher MD Albumin/Globulin [Mass ratio] 1.7 {ratio} Normal 1.0-2.[address] [facility] Comment on above: Performed By: #### F YURIY, FEBC, VD25, PTHNCA #### [address] [phone] Client Coordinator: Bobby Flanagan MD #### AZJustin, ANDREICOT, AVITB1, AVITAS #### [facility] [address] [place] [address] [phone] Client Coordinator: Jeffy Benz MD #### CP, GLYHGB, CDP, MG, LIPR #### [address] [place] [address] Client Coordinator: Omari Fisher MD Alkaline Phos 68 U/L Normal 35-104 [facility] Comment on above: Performed By: #### F YURIY, FEBC, VD25, PTHNCA #### [facility] [address] [place], [place] [phone] Client Coordinator: Bobby Flanagan MD #### RENA LAWSON, ASHLITB1, AVITAS #### [facility] [address] [place] [address] Client Coordinator: Jeffy Benz MD #### CP, GLYHGB, CDP, MG, LIPR #### [address] [place] [address] Client Coordinator: Omari Fisher MD ALT [Catalytic activity/Vol] 35 U/L High 5-[address] [facility] Comment on above: Performed By: #### F YURIY, FEBC, VD25, PTHNCA #### [address] [phone] Client Coordinator: Bobby Flanagan MD #### RENA LAWSON, AVITB1, AVITAS #### [facility] [address] [place] [address] Client Coordinator: Jeffy Benz MD #### CP, GLYHGB, CDP, MG, LIPR #### [address] [place] [address] Client Coordinator: Omari Fisher MD Anion gap [Moles/Vol] 13 mmol/L Normal 9-[address] [facility] Comment on above: Performed By: #### F YURIY, FEBC, VD25, PTHNCA #### [address] [address] Client Coordinator: Bobby Flanagan MD #### RENA LAWSON AVITB1, ASHLITAS #### [facility] [address] [place], [place] [phone] Client Coordinator: Jeffy Benz MD #### CP, GLYHGB, CDP, MG, LIPR #### [address] [place] [address] Client Coordinator: Omari Fisher MD AST [Catalytic activity/Vol] 24 U/L Normal <[address] [facility] Comment on above: Performed By: #### F ABDULKADIR YAN, VD25, PTHNCA #### [address] [address] Client Coordinator: Bobby Flanagan MD #### RENA LAWSON, ASHLITB1, ASHLITAS #### [address] [address] Client Coordinator: Jeffy Benz MD #### CP, GLYHGB, CDP, MG, LIPR #### [address] [place] [address] Client Coordinator: Omari Fisher MD Bilirubin Ql (U) 0.51 mg/dL Normal 0.3-1.2 [facility] Comment on above: Performed By: #### F ABDULKADIR YAN, VD25, PTHNCA #### [address] [address] Client Coordinator: Bobby Flanagan MD #### RENA LAWSON, ASHLITB1, ASHLITAS #### [facility] [address] [place] [address] Client Coordinator: Jeffy Benz MD #### CP, GLYHGB, CDP, MG, LIPR #### [address] [place] [address] Client Coordinator: Omari Fisher MD BUN/CRE Ratio 18 Normal 9-20 [facility] Comment on above: Performed By: #### F ABDULKADIR YAN, VD25, PTHNCA #### [address] [address] Client Coordinator: Bobby Flanagan MD #### RENA LAWSON, ASHLITB1, AVITAS #### [facility] [address] [place], [place] [phone] Client Coordinator: Jeffy Benz MD #### CP, GLYHGB, CDP, MG, LIPR #### [address] [place] [address] Client Coordinator: Omari Fisher MD Calcium [Mass/Vol] 9.4 mg/dL Normal 8.6-10.[address] [facility] Comment on above: Performed By: #### ABDULKADIR BENSON, VD25, PTHNCA #### [address] [phone] Client Coordinator: Bobby Flanagan MD #### RENA LAWSON, ASHLITB1, ASHLITAS #### [facility] [address] [place] [address] Client Coordinator: Jeffy Benz MD #### CP, GLYHGB, CDP, MG, LIPR #### [address] [place] [address] Client Coordinator: Omari Fisher MD Chloride [Moles/Vol] 100 mmol/L Normal 98-[address] [facility] Comment on above: Performed By: #### F ABDULKADIR YAN, VD25, PTHNCA #### [address] [address] Client Coordinator: Bobby Flanagan MD #### RENA LAWSON, ASHLITB1, AVITAS #### [facility] [address] [place], [place] [phone] Client Coordinator: Jeffy Benz MD #### CP, GLYHGB, CDP, MG, LIPR #### [address] [place] [address] Client Coordinator: Omari Fisher MD CO2 [Moles/Vol] 27 mmol/L Normal 20-31 [facility] Comment on above: Performed By: #### F YURIY, FEBC, VD25, PTHNCA #### [address] [phone] Client Coordinator: Bobby Flanagan MD #### RENA LAWSON AVITB1, NATY #### [facility] [address] [place], [place] [phone] Client Coordinator: Jeffy Benz MD #### CP, GLYHGB, CDP, MG, LIPR #### [address] [place] [address] Client Coordinator: Omari Fisher MD Creatinine [Mass/Vol] 0.83 mg/dL Normal 0.50-0.[address] [facility] Comment on above: Performed By: #### F YURIY, FEBC, VD25, PTHNCA #### [address] [phone] Client Coordinator: Bobby Flanagan MD #### RENA LAWSON AVITB1, NATY #### [facility] [address] [place], [place] [phone] Client Coordinator: Jeffy Benz MD #### CP, GLYHGB, CDP, MG, LIPR #### [address] [place] [address] Client Coordinator: Omari Fisher MD GFR, Amer >60 Normal >60 [facility] Comment on above: Performed By: #### F YURIY, FEBC, VD25, PTHNCA #### [address] [place] [address] Client Coordinator: Bobby Flanagan MD #### RENA LAWSON AVITB1, NATY #### [facility] [address] [place], [place] [phone] Client Coordinator: Jeffy Benz MD #### CP, GLYHGB, CDP, MG, LIPR #### [address] [place], [place] [phone] Client Coordinator: Omari Fisher MD GFR,non Amer >60 Normal >[address] [facility] Comment on above: Performed By: #### F ABDULKADIR YAN, VD25, PTHNCA #### [address] [address] Client Coordinator: Bobby Flanagan MD #### RENA LAWSON AVITB1, NATY #### [facility] [address] [place], [place] [phone] Client Coordinator: Jeffy Benz MD #### CP, GLYHGB, CDP, MG, LIPR #### [address] [place] [address] Client Coordinator: Omari Fisher MD Glucose [Mass/Vol] 117 mg/dL High 70-[address] [facility] Comment on above: Performed By: #### F ABDULKADIR YAN, VD25, PTHNCA #### [address] [address] Client Coordinator: Bobby Flanagan MD #### RENA LAWSON AVITB1, NATY #### [facility] [address] [place], [place] [phone] Client Coordinator: Jeffy Benz MD #### CP, GLYHGB, CDP, MG, LIPR #### [facility] [address] [place] [address] [place] [address] Client Coordinator: Omari Fisher MD Potassium [Moles/Vol] 3.5 mmol/L Low 3.7-5.[address] [facility] Comment on above: Performed By: #### F ABDULKADIR YAN, VD25, PTHNCA #### [address] [address] Client Coordinator: Bobby Flanagan MD #### RENA LAWSON, ASHLITB1, AVITAS #### [facility] [address], [place] [id number] Client Coordinator: Jeffy Benz MD #### CP, GLYHGB, CDP, MG, LIPR #### [address] [place] [address] Client Coordinator: Omari Fisher MD Protein [Mass/Vol] 7.0 g/dL Normal 6.4-8.[address] [facility] Comment on above: Performed By: #### ABDULKADIR BENSON, VD25, PTHNCA #### [address] [address] Client Coordinator: Bobby Flanagan MD #### RENA LAWSON, ASHLITB1, AVITAS #### [facility] [address] [place] [address] Client Coordinator: Jeffy Benz MD #### CP, GLYHGB, CDP, MG, LIPR #### [address] [place] [address] Client Coordinator: Omari Fisher MD Sodium [Moles/Vol] 140 mmol/L Normal 135-[address] [facility] Comment on above: Performed By: #### F ABDULKADIR YAN, VD25, PTHNCA #### [address] [address] Client Coordinator: Bobby Flanagan MD #### RENA LAWSON, ASHLITB1, AVITAS #### [facility] [address], [place] [id number] Client Coordinator: Jeffy Benz MD #### CP, GLYHGB, CDP, MG, LIPR #### [address] [place] [address] Client Coordinator: Omari Fisher MD Staging: Normal [facility] Comment on above: Result Comment: Stag e 1: Some kidney damage normal GFR Stage 2: Mild kidney damage GFR 60-89 Stage 3: Moderate kidney damage GFR 30-59 Stage 4: Severe kidney damage GFR 15-29 Stage 5: Severe kidney damage GFR <15 ESRD - chronic treatment by dialysis or transplant Performed By: #### F ABDULKADIR YAN, VD25, PTHNCA #### [address] [id number] Client Coordinator: Bobby Flanagan MD #### RENA LAWSON AVITB1, AVITAS #### [facility] [address] [place] [phone] Client Coordinator: Jeffy Benz MD #### CP, GLYHGB, CDP, MG, LIPR #### [address] [place] [address] Client Coordinator: Omari Fisher MD Urea nitrogen [Mass/Vol] 15 mg/dL Normal 6-[address] [facility] Comment on above: Performed By: #### F ABDULKADIR YAN, VD25, PTHNCA #### [address] [phone] Client Coordinator: Bobby Flanagan MD #### RENA LAWSON AVITB1, AVITAS #### [facility] [address] [place] [address] Client Coordinator: Jeffy Benz MD #### CP, GLYHGB, CDP, MG, LIPR #### [address] [place] [address] Client Coordinator: Omari Fisher MD Comprehensive Metabolic Pane gisela 04-18-2020 Albumin [Mass/Vol] 4.4 g/dL 3.5 - 5.2 g/dL [place], [place] Albumin/Globulin [Mass ratio] 1.7 {ratio} [place] ALP [Catalytic activity/Vol] 68 U/L 35 - 104 U/L [place] ALT [Catalytic activity/Vol] 35 U/L High 5 - 33 U/L [place] Anion gap [Moles/Vol] 13 mmol/L 9 - 17 mmol/L [place] AST [Catalytic activity/Vol] 24 U/L <32 [place] Bilirubin Ql (U) 0.51 mg/dL 0.3 - 1.2 mg/dL [place] Bun/Cre Ratio 18 [place], [place] Calcium [Mass/Vol] 9.4 mg/dL 8.6 - 10. 4 mg/dL [place] Chloride [Moles/Vol] 100 mmol/L 98 - 107 mmol/L [place] CO2 [Moles/Vol] 27 mmol/L 20 - 31 mmol/L [place] Creatinine [Mass/Vol] 0.83 mg/dL 0.5 - 0.9 mg/dL [place] GFR >60 >60 mL/min [place] GFR Non- >60 >60 mL/min [place] Glucose [Mass/Vol] 117 mg/dL High 70 - 99 mg/dL [place], [place] Potassium [Moles/Vol] 3.5 mmol/L Low 3.7 - 5.3 mmol/L [place] Protein [Mass/Vol] 7.0 g/dL 6.4 - 8.3 g/dL [place] Sodium [Moles/Vol] 140 mmol/L 135 - 144 mmol/L [place] Urea nitrogen [Mass/Vol] 15 mg/dL 6 - 20 mg/dL [place] Ferritinon 04-18-2020 Ferritin [Mass/Vol] 59 ug/L Normal 13-[address] [facility] Comment on above: Performed By: #### D AU #### [facility] [address] [place] [address] Client Coordinator: Omari Fisher MD Ferritin [Mass/Vol] 59 ug/L 13 - 150 ug/L [facility], [place] Hemoglobin A1Con 04-18-2020 HbA1c (Bld) [Mass fraction] 5.3 % Normal 4.8-5.[address] [facility] Comment on above: Performed By: #### F ABDULKADIR YAN, VD25, PTHNCA #### [facility] [address] [place], [place] [phone] Client Coordinator: Bobby Flanagan MD #### RENA LAWSON, AVITB1, AVITAS #### [facility] [address] [place] [address] Client Coordinator: Jeffy Benz MD #### CP, GLYHGB, CDP, MG, LIPR #### [facility] [address] [place] [address] Client Coordinator: Omari Fisher MD HbA1c (Bld) [Mass fraction] 105 mg/dL Normal [facility] Comment on above: Result Comment: The ADA and AACC recommend providing the estimated average glucose result to permit better patient understanding of their HBA1c result. Performed By: #### F ABDULKADIR YAN, VD25, PTHNCA #### [facility] [address] [place], [place] [phone] Client Coordinator: Bobby Flanagan MD #### AZJustin, ANDREICOT, AVITB1, AVITAS #### [facility] [address] [place] [address] Client Coordinator: Jeffy Benz MD #### CP, GLYHGB, CDP, MG, LIPR #### [facility] [address] [place] [address] Client Coordinator: Omari Fisher MD Glucose [Mass/Vol] 105 mg/dL [place] Comment on above: The ADA and AACC rec ommend providing the estimated average glucose result to permit better patient understanding of their HBA1c result. HbA1c (Bld) [Mass fraction] 5.3 % 4.8 - 5.9 % [place] Iron Binding Cap.on 04-18-20 20 % Fe Saturation 33 % Normal 20-55 [facility] Comment on above: Performed By: #### D AU #### [facility] [address] [place], [place] [phone] Client Coordinator: Omari Fisher MD Iron [Mass/Vol] 104 ug/dL Normal 37-145 [facility] Comment on above: Performed By: #### D AU #### [facility] [address] [place], [place] [phone] Client Coordinator: Omari Fisher MD Total Fe Binding Cap 312 ug/dL Normal 250-[address] [facility] Comment on above: Performed By: #### D AU #### [facility] [address] [place] [address] Client Coordinator: Omari Fisher MD Unbound Fe Bind Cap 208 ug/dL Normal 112-[address] [facility] Comment on above: Performed By: #### D AU #### [facility] [address] [place], [place] [phone] Client Coordinator: Omari Fisher MD Iron and TIBCon 04-18-2020 Iron [Mass/Vol] 104 ug/dL 37 - 145 ug/dL [place] Iron Saturation 33 % 20 - 55 % [place], [place] TIBC 312 ug/dL 250 - 450 ug/dL [place] UIBC 208 ug/dL 112 - 347 ug/dL [place] Lipid Panelon 04-18-2020 Cholesterol [Mass/Vol] 207 mg/dL High <200 [place] Comment on above: Cholesterol Guidelines: <200 Desirable 200-240 Borderline >240 Undesirable Cholesterol in HDL [Mass/Vol] 33 mg/dL Low >40 [place] Comment on above: HDL Guidelines: <40 Undesirable 40-59 Borderline >59 Desirable Cholesterol in LDL [Mass/Vol] 119 mg/dL 0 - 130 mg/dL [place] Comment on above: LDL Guidelines: <100 Desirable 100-129 Near to/above Desirable 130-159 Borderline >159 Undesirable Direct (measured) LDL and calculated LDL are not interchangeable tests. Cholesterol in VLDL [Mass/Vol] NOT REPORTED High 1 - 30 mg/dL [place] Cholesterol.total/C holesterol in HDL [Mass ratio] 6.3 {ratio} High <5 [place] Triglyceride [Mass/Vol] 273 mg/dL High <150 [place] Comment on above: Triglyceride Guidelines: <150 Desirable 150-199 Borderline 200-499 High >499 Very high Based on AHA Guidelines for fasting triglyceride, July 2012. Lipid Profileon 04-18-2020 Cholesterol [Mass/Vol] 207 mg/dL High <[address] [facility] Comment on above: Result Comment: Cholesterol Guidelines: <200 Desirable 200-240 Borderline >240 Undesirable Performed By: #### F YURIY, ABDULKADIR, VD25, PTHNCA #### [facility] [address] [place], [place] [phone] Client Coordinator: Bobby Flanagan MD #### RENA LAWSON AVITB1, NATY #### [facility] [address], [place] [phone] Client Coordinator: Jeffy Benz MD #### CP, GLYHGB, CDP, MG, LIPR #### [facility] [address] [place] [address] Client Coordinator: Omari Fisher MD Cholesterol in HDL [Mass/Vol] 33 mg/dL Low >[address] [facility] Comment on above: Result Comment: HDL Guidelines: <40 Undesirable 40-59 Borderline >59 Desirable Performed By: #### F YURIY, FEBC, VD25, PTHNCA #### [facility] [address] [place] [address] Client Coordinator: Bobby Flanagan MD #### RENA LAWSON AVITB1, ASHLITAS #### [facility] [address] [place] [address] Client Coordinator: Jeffy Benz MD #### HANNAH, SUYAPA, CDP, MG, LIPR #### [facility] [address] [place] [address] [place], [place] [phone] Client Coordinator: Omari Fisher MD Cholesterol in LDL [Mass/Vol] 119 mg/dL Normal 0-[address] [facility] Comment on above: Result Comment: LDL Guidelines: <100 Desirable 100-129 Near to/above Desirable 130-159 Borderline >159 Undesirable Direct (measured) LDL and calculated LDL are not interchangeable tests. Performed By: #### F ABDULKADIR YAN, VD25, PTHNCA #### [place] [id number] [place], [place] [phone] Client Coordinator: Bobby Flanagan MD #### RENA LAWSON AVITB1, NATY #### [facility] [address], [place] [phone] Client Coordinator: Jeffy Benz MD #### HANNAH, SUYAPA, CDP, MG, LIPR #### [address] [place] [address] Client Coordinator: Omari Fisher MD Cholesterol.total/C holesterol in HDL [Mass ratio] 6.3 {ratio} High <[address] [facility] Comment on above: Performed By: #### F ABDULKADIR YAN, VD25, PTHNCA #### [facility] [address] [place] [address] Client Coordinator: Bobby Flanagan MD #### RENA LAWSON AVITB1, NATY #### [facility] [address], [place] [id number] Client Coordinator: Jeffy Benz MD #### HANNAH, GLYISAAK, CDP, MG, LIPR #### [facility] [address] [place] [address] [place] [address] Client Coordinator: Omari Fisher MD Triglyceride [Mass/Vol] 273 mg/dL High <[address] [facility] Comment on above: Result Comment: Triglyceride Guidelines: <150 Desirable 150-199 Borderline 200-499 High >499 Very high Based on AHA Guidelines for fasting triglyceride, July 2012. Performed By: #### F YURIY, FEBC, VD25, PTHNCA #### [facility] [address] [place], [place] [address] Client Coordinator: Bobby Flanagan MD #### RENA LAWSON, ASHLITB1, AVITAS #### [facility] [address] [place] [address] Client Coordinator: Jeffy Benz MD #### CP, GLYHGB, CDP, MG, LIPR #### [address] [place] [phone] Client Coordinator: Omari Fisher MD Cholesterol in VLDL [Mass/Vol] NOT REPORTED Normal - [facility] Comment on above: Performed By: #### F ABDULKADIR YAN, VD25, PTHNCA #### [address] [phone] Client Coordinator: Bobby Flanagan MD #### LULU, RENA, ASHLITB1, AVITAS #### [facility] [address] [place] [address] Client Coordinator: Jeffy Benz MD #### CP, GLYHGB, CDP, MG, LIPR #### [address] [place] [address] Client Coordinator: Omari Fisher MD Magnesiumon 04-18-2020 Magnesium [Mass/Vol] 2.1 mg/dL Normal 1.6-2.[address] [facility] Comment on above: Performed By: #### F YURIY, FEBC, VD25, PTHNCA #### [id number] [place] [address] Client Coordinator: Bobby Flanagan MD #### RENA LAWSON AVITB1, NATY #### [facility] [address] [place] [address] Client Coordinator: Jeffy Benz MD #### CP, GLYHGB, CDP, MG, LIPR #### [facility] [address] [place] [address] Client Coordinator: Omari Fisher MD Magnesium [Mass/Vol] 2.1 mg/dL 1.6 - 2.6 mg/dL [place] Metabolic Panelon 04-18-2020 GFR/1.73 sq M predicted among non-blacks MDRD (S/P/Bld) [Vol rate/Area] [place], [place] Comment on above: Average GFR for 30-3 9 years old: 107 mL/min/1.73sq m Chronic Kidney Disease: <60 mL/min/1.73sq m Kidney failure: <15 mL/min/1.73sq m eGFR calculated using average adult body mass. Additional eGFR calculator available at: http://[email or web address]/multiple_crcl_2012.htm Stage 1: Some kidney damage normal GFR Stage 2: Mild kidney damage GFR 60-89 Stage 3: Moderate kidney damage GFR 30-59 Stage 4: Severe kidney damage GFR 15-29 Stage 5: Severe kidney damage GFR <15 ESRD - chronic treatment by dialysis or transplant Otheron 04-18-2020 Interpretation and review of laboratory results Abnormal [place] PTH, Intacton 04-18-2020 PTH, Intact 54.97 pg/mL Normal 15.0-65.[address] [facility] Comment on above: Result Comment: SAMP LES FROM PATIENTS ROUTINELY RECEIVING HIGH DOSE BIOTIN THERAPY MAY SHOW FALSELY DEPRESSED RESULTS. ADDITIONAL INFORMATION MAY BE REQUIRED FOR DIAGNOSIS. Performed By: #### F YURIY, FEBC, VD25, PTHNCA #### [facility] [address] [place], [place] [phone] Client Coordinator: Bobby Flanagan MD #### AZN, ANICOT, AVITB1, AVITAS #### [facility] [address] [place] [address] Client Coordinator: Jeffy Benz MD #### CP, GLYHGB, CDP, MG, LIPR #### [facility] [address] [place] [address] [place] [address] Client Coordinator: Omari Fisher MD Pth Intact 54.97 pg/mL 15 - 65 pg/mL [place], [place] Comment on above: SAMPLES FROM PATIENT S ROUTINELY RECEIVING HIGH DOSE BIOTIN THERAPY MAY SHOW FALSELY DEPRESSED RESULTS. ADDITIONAL INFORMATION MAY BE REQUIRED FOR DIAGNOSIS. T4, Freeon 04-18-2020 Interpretation and review of laboratory results Abnormal [place] Thyroxine, Free 0.90 ng/dL Low 0.93 - 1.7 ng/dL [place] TSH without Reflexon 020 TSH Qn 1.74 m[IU]/L [place], [place] Thyroid Stim. Horm.on 2019 TSH Qn 1.74 m[IU]/L Normal 0.30-5.[address] [facility] Comment on above: Performed By: #### D AU #### [address] [place] [address] Client Coordinator: Omari Fisher MD Thyroxine, Freeon 04-18-2020 Thyroxine, Free 0.90 ng/dL Low 0.93-1.70 [facility] Comment on above: Performed By: #### D AU #### [address] [place] [address] Client Coordinator: Omari Fisher MD Vitamin B12 & Folateon 04-18 Cobalamin (Vitamin B12) [Mass/Vol] 324 pg/mL 232 - 1245 pg/mL [place], [place] Folate 14.3 ng/mL >4.8 [place] Vitamin D 25 Hydroxyon 04-18 Interpretation and review of laboratory results Abnormal [place] Vit D, 25-Hydroxy 22.6 ng/mL Low 30 - 100 ng/mL [facility] [place], [place] Comment on above: Reference Range: Vitamin D status Range Deficiency <20 ng/mL Mild Deficiency 20-30 ng/mL Sufficiency 30-100 ng/mL Toxicity >100 ng/mL Vitamin D 25 OHon 04-18-2020 Vitamin D 25 [place] 22.6 ng/mL Low 30.0-100.0 [facility] Comment on above: Result Comment: Reference Range: Vitamin D status Range Deficiency <20 ng/mL Mild Deficiency 20-30 ng/mL Sufficiency 30-100 ng/mL Toxicity >100 ng/mL Performed By: #### D AU #### [facility] [address] [place] [address] Client Coordinator: Omari Fisher MD Basic Metabolic Panel Anion gap molar conc 13 mmol/L Normal 10-20 [facility] Comment on above: Performed By: #### 1 [id number] #### [facility] [address] [place] [address] Calcium mass conc 9.6 mg/dL Normal 8.6-10.3 [facility] Comment on above: Performed By: #### 1 [id number] #### [facility] [address] [place] [address] Chloride molar conc 104 mmol/L Normal 98-107 [facility] Comment on above: Performed By: #### 1 [id number] #### [facility] [address] [place] [address] Creatinine mass conc 0.83 mg/dL Normal 0.50-1.05 [facility] Comment on above: Performed By: #### 1 [id number] #### [facility] [address] [place] [address] GFR/1.73 sq M.predicted MDRD vol rate/area mL/min/{1.73_m2} Normal [facility] Comment on above: Result Comment: Inte rpretation for Chronic Kidney Disease: Stages 1&2 >60 Healthy or potential kidney damage. Mild decrease of GFR. Stage 3 30-59 Moderate decrease of GFR. Stage 4 15-29 Severe decrease of GFR. Stage 5 <15 Kidney failure or on dialysis. Performed By: #### 1 [id number] #### [facility] [address] [place] [address] Glucose mass conc 74 mg/dL Normal 70-100 [facility] Comment on above: Performed By: #### 1 [id number] #### [facility] [address] [place] [address] HCO3 molar conc (Bld) 26 mmol/L Normal 21-32 [facility] Comment on above: Performed By: #### 1 [id number] #### [facility] [address] [place] [address] Potassium molar conc 3.6 mmol/L Normal 3.5-5.1 [facility] Comment on above: Performed By: #### 1 [id number] #### [facility] [address] [place] [address] Sodium molar conc 139 mmol/L Normal 136-145 [facility] Comment on above: Performed By: #### 1 [id number] #### [facility] [address] [place] [address] Urea nitrogen mass conc 13 mg/dL Normal 6-23 [facility] Comment on above: Performed By: #### 1 [id number] #### [facility] [address] [place] [address] Urea nitrogen/Creatinine mass ratio 16 mg/mg Normal 5-25 [facility] Comment on above: Performed By: #### 1 [id number] #### [facility] [address] [place] [address] CBCon 12-15-2018 Erythrocyte distribution width Ratio (RBC) 12.6 % Normal 12.0-15.4 [facility] Comment on above: Performed By: #### 2 [id number] #### [facility] [address] [place] [address] Hematocrit Volume Fraction (Bld) 43.4 % Normal 36.5-46.6 [facility] Comment on above: Performed By: #### 2 [id number] #### [facility] [address] [place] [address] Hemoglobin mass conc (Bld) 14.2 g/dL Normal 11.8-15.3 [facility] Comment on above: Performed By: #### 2 [id number] #### [facility] [address] [place] [address] MCH Entitic mass (RBC) 30.3 pg Normal 27.5-33.0 [facility] Comment on above: Performed By: #### 2 [id number] #### [facility] [address] [place] [address] MCHC mass conc (RBC) 32.7 g/dL Normal 30.1-35.0 [facility] Comment on above: Performed By: #### 2 [id number] #### [facility] [address] [place] [address] MCV Entitic volume (RBC) 92.5 fL Normal 85.4-100.0 [facility] Comment on above: Performed By: #### 2 [id number] #### [facility] [address] [place] [address] NRBC Absolute 0.00 10*3/uL Normal [facility]care Comment on above: Performed By: #### 2 [id number] #### [facility] [address] [place] [address] NRBC Automated 0.0 /100{WBCs} Normal [facility] Comment on above: Performed By: #### 2 [id number] #### [facility] [address] [place] [address] Platelet mean volume Entitic volume (Bld) 10.9 fL Normal 9.9-12.1 [facility] Comment on above: Performed By: #### 2 [id number] #### [facility] [address] [place] [address] Platelets #/vol (Bld) 199 10*3/uL Normal 155-404 [facility] Comment on above: Performed By: #### 2 [id number] #### [facility] [address] [place] [address] RBC #/vol (Bld) 4.69 10*6/uL Normal 3.85-5.10 [facility] Comment on above: Performed By: #### 2 [id number] #### [facility] [address] [place] [address] RDW SD 42.5 fL Normal 39.3-48.6 [facility] Comment on above: Performed By: #### 2 [id number] #### [facility] [address] [place] [address] WBC #/vol (Bld) 8.4 10*3/uL Normal 4.4-9.9 [facility] Comment on above: Performed By: #### 2 [id number] #### [facility] [address] [place] [address] Test (Serum)on Test, Serum Negative Normal [facility] Comment on above: Performed By: #### 3 [id number] #### [facility] [address] [place] [address] CBC With Differentialon 04-12 Basophils #/vol (Bld) 0.05 10*3/uL Normal 0.01-0.07 [facility] Comment on above: Performed By: #### 2 [id number] #### [facility] [address] [place] [address] Basophils/100 WBC (Bld) 0.5 % Normal 0.1-1.2 [facility] Comment on above: Performed By: #### 2 [id number] #### [facility] [address] [place] [address] Eosinophils #/vol (Bld) 0.38 10*3/uL Normal 0.04-0.50 [facility] Comment on above: Performed By: #### 2 [id number] #### [facility] [address] [place] [address] Eosinophils/100 WBC (Bld) 3.7 % Normal 0.0-8.1 [facility] Comment on above: Performed By: #### 2 [id number] #### [facility] [address] [place] [address] Erythrocyte distribution width Ratio (RBC) 12.3 % Normal 12.0-15.4 [facility] Comment on above: Performed By: #### 2 [id number] #### [facility] [address] [place] [address] Hematocrit Volume Fraction (Bld) 44.6 % Normal 36.5-46.6 [facility] Comment on above: Performed By: #### 2 [id number] #### [facility] [address] [place] [address] Hemoglobin mass conc (Bld) 14.8 g/dL Normal 11.8-15.3 [facility] Comment on above: Performed By: #### 2 [id number] #### [facility] [address] [place] [address] Imm Grans Absolute 0.03 10*3/uL Normal 0.00-0.21 [facility] Comment on above: Performed By: #### 2 [id number] #### [facility] [address] [place] [address] Immature granulocytes #/vol (Bld) 0.3 % Normal [facility] Comment on above: Performed By: #### 2 [id number] #### [facility] [address] [place] [address] Lymphocytes #/vol (Bld) 2.31 10*3/uL Normal 0.40-2.84 [facility] Comment on above: Performed By: #### 2 [id number] #### [facility] [address] [place] [address] Lymphocytes/100 WBC (Bld) 22.6 % Normal 15.7-50.5 [facility] Comment on above: Performed By: #### 2 252111 #### [facility] [address] [place] [address] MCH Entitic mass (RBC) 31.1 pg Normal 27.5-33.0 [facility] Comment on above: Performed By: #### 2 [id number] #### [facility] [address] [place] [address] MCHC mass conc (RBC) 33.2 g/dL Normal 30.1-35.0 [facility] Comment on above: Performed By: #### 2 [id number] #### [facility] [address] [place] [address] MCV Entitic volume (RBC) 93.7 fL Normal 85.4-100.0 [facility] Comment on above: Performed By: #### 2 634851 #### [facility] [address] [place] [address] Monocytes #/vol (Bld) 0.63 10*3/uL Normal 0.25-0.83 [facility] Comment on above: Performed By: #### 2 [id number] #### [facility] [address] [place] [address] Monocytes/100 WBC (Bld) 6.2 % Normal 4.8-12.7 [facility] Comment on above: Performed By: #### 2 609363 #### [facility] [address] [place] [address] Neutrophils Absolute 6.84 10*3/uL Normal 1.95-6.85 [facility] Comment on above: Performed By: #### 2 [id number] #### [facility] [address] [place] [address] Neutrophils/100 WBC (Bld) 66.7 % Normal 36.8-73.2 [facility] Comment on above: Performed By: #### 2 [id number] #### [facility] [address] [place] [address] NRBC Absolute 0.00 10*3/uL Normal [facility] Comment on above: Performed By: #### 2 [id number] #### [facility] [address] [place] [address] NRBC Automated 0.0 /100{WBCs} Normal [facility] Comment on above: Performed By: #### 2 [id number] #### [facility] [address] [place] [address] Platelet mean volume Entitic volume (Bld) 11.6 fL Normal 9.9-12.1 [facility] Comment on above: Performed By: #### 2 [id number] #### [facility] [address] [place] [address] Platelets #/vol (Bld) 184 10*3/uL Normal 155-404 [facility] Comment on above: Performed By: #### 2 [id number] #### [facility] [address] [place] [address] RBC #/vol (Bld) 4.76 10*6/uL Normal 3.85-5.10 [facility] Comment on above: Performed By: #### 2 195631 #### [facility] [address] [place] [address] RDW SD 42.5 fL Normal 39.3-48.6 [facility] Healthcare Comment on above: Performed By: #### 2 [id number] #### [facility] [address] [place] [address] WBC #/vol (Bld) 10.2 10*3/uL High 4.4-9.9 [facility] ltare Comment on above: Performed By: #### 2 [id number] #### [facility] [address] [place] [address] Comprehensive Metabolic Pane gisela 05-05-2018 Albumin mass conc 4.5 g/dL Normal 3.4-5.0 [facility] Comment on above: Performed By: #### 1 [id number] #### [facility] [address] [place] [address] Albumin/Globulin mass ratio 1.7 {ratio} Normal 0.9-2.4 [facility] Healthcare Comment on above: Performed By: #### 1 [id number] #### [facility] [address] [place] [address] ALP enzyme act/vol 80 U/L Normal 45-117 [facility] althcare Comment on above: Performed By: #### 1 [id number] #### [facility] [address] [place] [address] ALT enzyme act/vol 37 U/L Normal 7-45 [facility] althcare Comment on above: Performed By: #### 1 [id number] #### [facility] [address] [place] [address] Anion gap molar conc 13 mmol/L Normal 10-20 [facility] Healthcare Comment on above: Performed By: #### 1 [id number] #### [facility] [address] [place] [address] AST enzyme act/vol 26 U/L Normal 13-39 [facility] He althcare Comment on above: Performed By: #### 1 [id number] #### [facility] [address] [place] [address] Bilirubin mass conc 0.6 mg/dL Normal 0.0-1.2 [facility] Comment on above: Performed By: #### 1 [id number] #### [facility] [address] [place] [address] Calcium mass conc 9.6 mg/dL Normal 8.6-10.3 [facility] Comment on above: Performed By: #### 1 [id number] #### [facility] [address] [place] [address] Chloride molar conc 105 mmol/L Normal 98-107 [facility] Comment on above: Performed By: #### 1 [id number] #### [facility] [address] [place] [address] Creatinine mass conc 0.95 mg/dL Normal 0.50-1.05 [facility] Comment on above: Performed By: #### 1 [id number] #### [facility] [address] [place] [address] GFR/1.73 sq M.predicted MDRD vol rate/area mL/min/{1.73_m2} Normal [facility] Comment on above: Result Comment: Inte rpretation for Chronic Kidney Disease: Stages 1&2 >60 Healthy or potential kidney damage. Mild decrease of GFR. Stage 3 30-59 Moderate decrease of GFR. Stage 4 15-29 Severe decrease of GFR. Stage 5 <15 Kidney failure or on dialysis. Performed By: #### 1 [id number] #### [facility] [address] [place] [address] Glucose mass conc 78 mg/dL Normal 70-100 [facility] lthcare Comment on above: Performed By: #### 1 [id number] #### [facility] [address] [place] [address] HCO3 molar conc (Bld) 26 mmol/L Normal 21-32 [facility] Comment on above: Performed By: #### 1 [id number] #### [facility] [address] [place] [address] Potassium molar conc 3.6 mmol/L Normal 3.5-5.1 [facility] Comment on above: Performed By: #### 1 [id number] #### [facility] [address] [place] [address] Protein mass conc 7.1 g/dL Normal 6.4-8.2 [facility] Comment on above: Performed By: #### 1 [id number] #### [facility] [address] [place] [address] Sodium molar conc 140 mmol/L Normal 136-145 [facility] Comment on above: Performed By: #### 1 [id number] #### [facility] [address] [place] [address] Urea nitrogen mass conc 10 mg/dL Normal 6-23 [facility] Comment on above: Performed By: #### 1 [id number] #### [facility] [address] [place] [address] Urea nitrogen/Creatinine mass ratio 11 mg/mg Normal 5-25 [facility] Comment on above: Performed By: #### 1 [id number] #### [facility] [address] [place] [address] ESR, Westergrenon 05-05-2018 ESR, Westergren 2 mm/h Normal 0-20 [facility] hcare Comment on above: Performed By: #### 2 [id number] #### [facility] [address] [place] [address] Lipid Panelon 05-05-2018 Cholesterol in HDL mass conc 35 mg/dL Abnormal [facility] Comment on above: Result Comment: Age Normal Mod Risk High Risk 5-9 >46 38-46 <38 10-14 >44 40-44 <40 15-19 >42 38-42 <38 Adult >49 Performed By: #### 1 [id number] #### [facility] [address] [place] [address] Cholesterol in LDL mass conc 100 mg/dL Normal <130 [facility] Comment on above: Performed By: #### 1 [id number] #### [facility] [address] [place] [address] Cholesterol in VLDL mass conc 72 mg/dL Abnormal <30 [facility] Comment on above: Performed By: #### 1 [id number] #### [facility] [address] [place] [address] Cholesterol mass conc 207 mg/dL Abnormal <200 [facility] Comment on above: Performed By: #### 1 [id number] #### [facility] [address] [place] [address] Cholesterol.total/C holesterol in HDL mass ratio 5.9 {ratio} Normal [facility] Comment on above: Performed By: #### 1 [id number] #### [facility] [address] [place] [address] Triglyceride mass conc 361 mg/dL Abnormal <150 [facility] Comment on above: Result Comment: 150- 199 Borderline High 200-499 High >500 Very High Performed By: #### 1 [id number] #### [facility] [address] [place] [address] TSHon 05-05-2018 Thyrotropin Qn 1.75 mU/L Normal 0.44-3.98 [facility] Health care Comment on above: Performed By: #### 1 [id number] #### [facility] [address] [place] [address] Vitamin D, 25 Hydroxyon 04-12 Vitamin D, 25 Hydroxy 23 ng/mL Abnormal [facility] Comment on above: Result Comment: DEFI CIENCY <20 INSUFFICIENCY 20-29 OPTIMUM LEVEL 30-80 POSSIBLE TOXICITY >80 Performed By: #### V ITD #### [facility] [address] [place] [address] SPINE CERVICAL MIN 4 VIEWSon 05-03-2018 SPINE CERVICAL MIN 4 VIEWS DATE OF EXAM: May 03 2018 12:05PM CLINICAL HISTORY/ Patient Name: BOO BO STUDY: SPINE CERVICAL MIN 4 VIEWS; 05/03/2018 12:05 pm INDICATION: NECK PAIN. COMPARISON: None. ACCESSION NUMBER(S): [id number] ORDERING CLINICIAN: NATE HERRON FINDINGS: The vertebral alignment is maintained and the vertebra are normal in height. The discs are maintained in height. The prevertebral soft tissues are not thickened. The posterior elements are intact. CONCLUSION: IMPRESSION: Negative Normal [facility] Vital Signs Date Time Vital Sign Value Performing Clinician Facility 12-04-2022 09:10-0500 Body height 170.18 cm Annette Navarroault Other [facility] Other 12-04-2022 09:10-0500 Body mass index (BMI) [Ratio] 46.98 kg/m2 Annette Navarroault Other [facility] Other 12-04-2022 09:10-0500 Body temperature 98.7 [degF] Annette Navarroault Other [facility] Other 12-04-2022 09:10-0500 Body weight 136.08 kg Annette Navarroault Other [facility] Other 12-04-2022 09:10-0500 Diastolic blood pressure 78 mm[Hg] Annette Navarroault Other [facility] Other 12-04-2022 09:10-0500 Respiratory rate 18 /min Annette Navarroault Other [facility] Other 12-04-2022 09:10-0500 SaO2% (BldA) [Mass fraction] 97 % Annette Homer Other [facility] Other 12-04-2022 09:10-0500 Systolic blood pressure 127 mm[Hg] Annette Homer Other [facility] Other 08-06-2022 10:05-0400 Body height 170.18 cm Liliana Morfin Other [facility] Other 08-06-2022 10:05-0400 Body mass index (BMI) [Ratio] 46.98 kg/m2 Liliana Shelbie Other [facility] Other 08-06-2022 10:05-0400 Body temperature 97.8 [degF] Liliana Morfin Other [facility] Other 08-06-2022 10:05-0400 Body weight 136.08 kg Liliana Shelbie Other [facility] Other 08-06-2022 10:05-0400 Diastolic blood pressure 89 mm[Hg] Liliana Shelbie Other [facility] Other 08-06-2022 10:05-0400 Respiratory rate 18 /min Liliana Jollymond Other [facility] Other 08-06-2022 10:05-0400 SaO2% (BldA) [Mass fraction] 97 % Liliana Jollymond Other [facility] Other 08-06-2022 10:05-0400 Systolic blood pressure 146 mm[Hg] Liliana Shelbie Other [facility] Other 03-16-2022 14:15-0400 Body height 170.18 cm Annette Strickland Other [facility] Other 03-16-2022 14:15-0400 Body mass index (BMI) [Ratio] 47.29 kg/m2 Annette Strickland Other [facility] Other 03-16-2022 14:15-0400 Body temperature 97.7 [degF] Annette Strickland Other [facility] Other 03-16-2022 14:15-0400 Body weight 136.99 kg Annette Strickland Other [facility] Other 03-16-2022 14:15-0400 Diastolic blood pressure 85 mm[Hg] Annette Strickland Other [facility] Other 03-16-2022 14:15-0400 Respiratory rate 18 /min Annette Strickland Other [facility] Other 03-16-2022 14:15-0400 SaO2% (BldA) [Mass fraction] 99 % Annette Strickland Other [facility] Other 03-16-2022 14:15-0400 Systolic blood pressure 136 mm[Hg] Annette Strickland Other [facility] Other 09-29-2021 10:45-0500 Body height 170.18 cm Annette Strickland Other [facility] Other 09-29-2021 10:45-0500 Body mass index (BMI) [Ratio] 46.82 kg/m2 Annette Strickland Other [facility] Other 09-29-2021 10:45-0500 Body temperature 98.9 [degF] Annette Strickland Other [facility] Other 09-29-2021 10:45-0500 Body weight 135.63 kg Annette Strickland Other [facility] Other 09-29-2021 10:45-0500 Respiratory rate 18 /min Annette Strickland Other [facility] Other 09-29-2021 10:45-0500 SaO2% (BldA) [Mass fraction] 97 % Annette Strickland Other [facility] Other 09-15-2021 12:10-0500 Body height 170.18 cm Linda Ginty Other [facility] Other 09-15-2021 12:10-0500 Body mass index (BMI) [Ratio] 47.14 kg/m2 Linda Ginty Other [facility] Other 09-15-2021 12:10-0500 Body temperature 98.1 [degF] Linda Ginty Other [facility] Other 09-15-2021 12:10-0500 Body weight 136.53 kg Linda Ginty Other [facility] Other 09-15-2021 12:10-0500 Diastolic blood pressure 68 mm[Hg] Linda Ginty Other [facility] Other 09-15-2021 12:10-0500 Respiratory rate 18 /min Linda Ginty Other [facility] Other 09-15-2021 12:10-0500 SaO2% (BldA) [Mass fraction] 98 % Linda Ginty Other [facility] Other 09-15-2021 12:10-0500 Systolic blood pressure 138 mm[Hg] Linda Baires Other [facility] Other 09-28-2020 10:15-0500 BP Diastolic 86 mm[Hg] [facility] [place] 09-28-2020 10:15-0500 BP Systolic 125 mm[Hg] Fortunato Uriostegui [place] 09-28-2020 10:15-0500 Pulse (Heart Rate) 72 /min [place], [place] 09-28-2020 10:15-0500 Respiratory Rate 16 /min [place], [place] 09-28-2020 09:59-0500 Body Temperature 97.5 [degF] [place] 09-28-2020 09:59-0500 Pulse Oximetry 96 % [facility] [place] 09-28-2020 08:10-0500 BMI (Body Mass Index) 49.72 kg/m2 [place], [place] 09-28-2020 08:10-0500 Body [facility] 144 [facility] [place] 09-28-2020 08:10-0500 Height 170.2 cm [place], [place] Encounters Encounter Date Encounter Type Care Provider Facility Start: 12-29-2023 End: 12-29-2023 ambulatory DALIA LUKE Not Available Start: 12-03-2023 End: 12-03-2023 ambulatory LAKEISHA AICHHOLZ Not Available Start: 10-01-2023 End: 10-01-2023 ambulatory LAKEISHA AICHHOLZ Not Available Start: 01-22-2023 End: 01-23-2023 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 LAKEISHA AICHHOLZ Facility:[facility] Start: 12-18-2022 End: 12-19-2022 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 LAKEISHA AICHHOLZ Facility:[facility] Start: 12-04-2022 End: 12-04-2022 ambulatory Annette Strickland Other [facility] Other Start: 12-04-2022 Office outpatient vi sit 25 minutes Annette Homer [facility] Start: 10-28-2022 End: 10-29-2022 ambulatory ALICIA ALAN Facility:[facility] Start: 08-06-2022 End: 08-06-2022 ambulatory Liliana Morfin Other [facility] Other Start: 08-06-2022 Office outpatient vi sit 15 minutes Liliana Morfin [facility] Start: 07-18-2022 End: 07-19-2022 ambulatory ALICIA ALAN Facility:[facility] Start: 07-14-2022 End: 07-15-2022 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 LAKEISHA ALAN Facility:[facility] Start: 05-07-2022 End: 05-08-2022 ambulatory ALICIA ALAN Facility:[facility] Start: 04-23-2022 End: 04-24-2022 ambulatory ALICIA ALAN Facility:[facility] Start: 04-11-2022 Encounter for genera l adult medical examination without abnormal findings ALICIA ALAN [facility] Start: 04-08-2022 End: 04-09-2022 ambulatory ALICIA ALAN Facility:[facility] Start: 04-08-2022 End: 04-09-2022 Encounter for general adult medical examination without abnormal findings ALICIA ALAN Facility:[facility] Start: 03-16-2022 End: 03-16-2022 ambulatory Annette Homer Other [facility] Other Start: 03-16-2022 Office outpatient vi sit 15 minutes Annette Homer [facility] Start: 03-15-2022 End: 03-16-2022 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 ALAN Facility:[facility] Start: 09-29-2021 End: 09-29-2021 ambulatory Annette Homer Other [facility] Other Start: 09-29-2021 Office outpatient vi sit 15 minutes Annette Homer [facility] Start: 09-15-2021 End: 09-15-2021 ambulatory Linda Baires Other [facility] Other Start: 09-15-2021 Office outpatient vi sit 25 minutes Linda Baires [facility] Start: 09-28-2020 End: 09-28-2020 Patient encounter procedure FORTUNATO URIOSTEGUI [facility] Start: 09-28-2020 End: 09-28-2020 Subsequent hospital visit by physician Fortunato Uriostegui Work Phone: [facility] Start: 09-24-2020 End: 09-29-2020 Patient encounter procedure [facility] Start: 09-24-2020 End: 09-28-2020 Subsequent hospital visit by physician Kristian To Pat Screening Schedule [facility] PRE ADMIT Comment on above: Preoperative testing Start: 07-09-2020 End: 07-14-2020 Patient encounter procedure [facility] Start: 07-09-2020 End: 07-13-2020 Subsequent hospital visit by physician Kristian To Pat Screening Schedule [facility] Laboratory Comment on above: Current nicotine use ; Essential hypertension; QUITA (obstructive sleep apnea); Arthritis; Anxiety and depression; Gastroesophageal reflux disease without esophagitis; Obesity, Class III, BMI 40-49.9 (morbid obesity) ([facility]); Fibromyalgia Preop testing Start: 04-18-2020 End: 04-19-2020 [facility] Start: 04-18-2020 End: 04-18-2020 Subsequent hospital visit by physician [facility] Drawing Room [facility] Laboratory Comment on above: Essential hypertensi on; QUITA (obstructive sleep apnea); Arthritis; Anxiety and depression; Gastroesophageal reflux disease without esophagitis; Obesity, Class III, BMI 40-49.9 (morbid obesity) (HCC); Fibromyalgia; Obstructive sleep apnea; Morbid obesity with BMI of 45.0-49.9, adult (HCC) Start: 12-17-2018 End: 12-17-2018 Patient encounter procedure LETICIA RILEY Facility:[facility] [employer] [facility] Start: 12-15-2018 Patient encounter procedure LETICIA RILEY Facility: Start: 06-01-2018 Patient encounter procedure NATE HERRON Facility:[facility] Start: 05-05-2018 Patient encounter procedure NATE HERRON Facility:[id number] Start: 05-03-2018 Patient encounter procedure NATE HERRON Facility:[id number] Start: 05-03-2018 Patient encounter Sam Momin lity:[id number] Procedures Date Procedure Procedure Detail Performing Clinician Start: 09-28-2020 DISCHARGE PATIENT JABARI GUERRERO [facility] Start: 09-28-2020 Level iv surg pathol ogy gross&microscopic exam FORTUNATO URIOSTEGUI Start: 09-28-2020 Continuous pulse oximetry FORTUNATO URIOSTEGUI Start: 09-28-2020 INITIATE OXYGEN THER APY PROTOCOL FORTUNATO URIOSTEGUI Start: 09-28-2020 BEDREST FORTUNATO PERERA Start: 09-28-2020 ENCOURAGE DEEP BREAT MARY AND COUGHING FORTUNATO URIOSTEGUI Start: 09-28-2020 NOTIFY PHYSICIAN (SPECIFY) FORTUNATO URIOSTEGUI Start: 09-28-2020 NURSING COMMUNICATION Raeann URIOSTEGUI Start: 09-28-2020 VITAL SIGNS FORTUNATO PERERA Start: 09-24-2020 COVID-19 FORTUNATO PERERA Start: 09-24-2020 COVID-19 Moises rubio Work Phone: Start: 07-09-2020 Drug screen class list a FORTUNATO URIOSTEGUI Start: 07-09-2020 COVID-19 AMBULATORY GRE ELIZABETH MAURILIO Start: 07-09-2020 Assay of nicotine JABARI URIOSTEGUI [...] URIOSTEGUI Start: 04-18-2020 Assay of parathormone G REGREHANA URIOSTEGUI Start: 04-18-2020 Assay of thiamine-vi tamin b-1 FORTUNATO URIOSTEGUI Start: 04-18-2020 Assay of thyroid stimulating hormone tsh FORTUNATO URIOSTEGUI Start: 04-18-2020 Assay of vitamin a LUCIAN URIOSTEGUI Start: 04-18-2020 Assay of zinc FORTUNATO DESAI Start: 04-18-2020 Blood count complete auto&auto difrntl [...] Phone: Start: 04-18-2020 Assay of magnesium Lucian Uriostegui Work Phone: Start: 04-18-2020 Assay of parathormone [...] Author Start: 04-18-2021 Creatinine measurement Creatinine monitoring [facility] [place] Start: 04-18-2021 Potassium monitoring Potassium monitoring [facility] [place], [place] Start: 11-21-2020 End: 11-21-2020 Office Visit 11/21/2020 Office Visit Bariatrics Fortunato Uriostegui DO [address] [place] [phone] [facility] Start: 10-24-2020 End: 10-24-2020 Office Visit 10/24/2020 Office Visit Bariatrics Maya Bender, HOME HEALTH CLINICAL LIAISON - 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 [address] [place] [phone] [facility] Start: 08-22-2020 End: 08-22-2020 Office Visit 08/22/2020 Office Visit Bariatrics Maya Bender HOME HEALTH CLINICAL LIAISON - 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 [address] [place] [phone] [facility] Start: 08-16-2020 End: 08-16-2020 Nurse Only 08/16/2020 Nurse Only Bariatrics [facility] Invasive Bariatric Surg Start: 07-25-2020 End: 07-25-2020 Office Visit 07/25/2020 Office Visit Bariatrics Maya Bender HOME HEALTH CLINICAL LIAISON - 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 [address] [place] [phone] [facility] Start: 07-13-2020 End: 07-13-2020 Hospital Encounter [facility] [place] Comment on above: EGD ESOPHAGOGASTRODUODENOSCOPY Start: 07-12-2020 End: 07-12-2020 Nurse Only 07/12/2020 Nurse Only Bariatrics [facility] Invasive Bariatric Surg Start: 06-20-2020 End: 06-20-2020 Office Visit 06/20/2020 Office Visit Bariatrics Maya Bender, HOME HEALTH CLINICAL LIAISON - 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 [address] [place] [phone] [facility] Part [facility] Start: 06-12-2020 Influenza vaccination Flu vaccine (#1) [place], [place] Start: 05-23-2020 End: 05-23-2020 Office Visit 05/23/2020 Office Visit Bariatrics Fortunato Uriostegui DO [address] [facility] [address] [place] [phone] [facility] Start: 2008 Screening for malignant neoplasm of cervix Cervical cancer screen [place], [place] Start: 2006 DTaP/Tdap/Td vaccine (1 - Tdap) DTaP/Tdap/Td vaccine (1 - Tdap) [place], [place] Start: 2002 HIV screening HIV screen [place], [place] Start: 1993 Pneumococcal 0-64 years Vaccine (1 of 1 - PPSV23) Pneumococcal 0-64 years Vaccine (1 of 1 - PPSV23) [place], [place] Start: 1988 Varicella vaccine (1 of 2 - 2-dose childhood series) Varicella vaccine (1 of 2 - 2-dose childhood series) [place], [place] Start: 1987 Creatinine measurement Creatinine monitoring [place] Start: 1987 Potassium monitoring Potassium monitoring [place] End: 04-18-2020 Nicotine, Blood Nicotine, Blood Lab Routine Essential hypertension QUITA (obstructive sleep apnea) Arthritis Anxiety and depression Gastroesophageal reflux disease without esophagitis Obesity, Class III, BMI 40-49.9 (morbid obesity) (HCC) Fibromyalgia 1 Occurrences starting 04/18/2020 until 04/18/2020 [place] Comment on above: 1 Occurrences starting 04/18/2020 until 04/18/2020 Nicotine, Blood [place], [place] End: 07-09-2020 Nicotine, Blood Nicotine, Blood Lab Routine Current nicotine use 1 Occurrences starting 07/09/2020 until 07/09/2020 [place] Comment on above: 1 Occurrences starting 07/09/2020 until 07/09/2020 Oxygen therapy [Minimum Data Set ] Initiate Oxygen Therapy Protocol Respiratory Care Routine Daily until discontinued starting 09/28/2020 [place] Comment on above: Daily until discontinued starting 2019 Surgical Pathology Surgical Path ology Lab Routine Release Upon Ordering for 1 Occurrences starting 09/28/2020 [place] Comment on above: Release Upon Ordering for 1 Occurrences starting 09/28/2020 End: 04-18-2020 Vitamin A Vitamin A Lab Routine Obstructive sleep apnea Morbid obesity with BMI of 45.0-49.9, adult (HCC) 1 Occurrences starting 04/18/2020 until 04/18/2020 [place] Comment on above: 1 Occurrences starting 04/18/2020 until 04/18/2020 Vitamin A Vitamin A Lab Ro utine Obstructive sleep apnea Morbid obesity with BMI of 45.0-49.9, adult ([facility]) 04/18/2020 10:16 AM EDT [place] End: 04-18-2020 Vitamin B1 Vitamin B1 Lab Routine Obstructive sleep apnea Morbid obesity with BMI of 45.0-49.9, adult ([facility]) 1 Occurrences starting 04/18/2020 until 04/18/2020 [place] Comment on above: 1 Occurrences starting 04/18/2020 until 04/18/2020 Vitamin B1 Vitamin B1 Lab R outine Obstructive sleep apnea Morbid obesity with BMI of 45.0-49.9, adult ([facility]) 04/18/2020 10:16 AM EDT [place] End: 04-18-2020 Zinc Zinc Lab Routine Obstructive sleep apnea Morbid obesity with BMI of 45.0-49.9, adult ([facility]) 1 Occurrences starting 04/18/2020 until 04/18/2020 [place] Comment on above: 1 Occurrences starting 04/18/2020 until 04/18/2020 Zinc Zinc Lab Routine Obstructive sleep apnea Morbid obesity with BMI of 45.0-49.9, adult ([facility]) 04/18/2020 10:16 AM EDT [place] Payers Date Payer Category Payer Unknown [facility] xxxxxxxxxxx 2020-Present [phone] CLAIMS DEPARTMENT [address] [place] [address] xxxxxxxxxxx [id number] 1987 Unknown [id number] 2.16.840.1.530246.3.579.2.355 1987 Unknown [id number] 2.16.840.1.892088.3.579.2.355 1987 Unknown [id number] 2.16.840.1.123171.3.579.2.355 1987 Unknown [id number] 2.16.840.1.670345.3.579.2.355 1987 Unknown [id number] 2.16.840.1.444000.3.579.2.355 1987 Unknown [id number] 2.16.840.1.740218.3.579.2.173 1987 Unknown [id number] 2.16.840.1.337660.3.579.2.173 1987 Unknown [id number] 2.16.840.1.659922.3.579.2.173 1987 Unknown [id number] 2.16.840.1.098305.3.579.2.173 1987 Unknown [id number] 2.16.840.1.814029.3.579.2.175 1987 Unknown [id number] 2.16.840.1.469120.3.579.2.593 1987 Unknown [id number] 2.16.840.1.294998.3.579.2.593 1987 Unknown [id number] 2.16.840.1.843286.3.579.2.593 1987 Unknown [id number] 2.16.840.1.933418.3.579.2.593 1987 Unknown [id number] 2.16.840.1.318875.3.579.2.593 1987 Unknown [id number] 2.16.840.1.315510.3.579.2.593 1987 Unknown [id number] 2.16.840.1.908811.3.579.2.593 1987 Unknown [id number] 2.16.840.1.043732.3.579.2.593 1987 Unknown [id number] 2.16.840.1.276580.3.579.2.593 1987 Unknown [id number] 2.16.840.1.618829.3.579.2.1259 1987 Unknown [id number] 2.16.840.1.206257.3.579.2.1259 1987 Unknown [id number] 2.16.840.1.994334.3.579.2.1259 1959 Unknown [id number] 1959 Unknown [id number] 2.16.840.1.172920.19 Self-pay Self Pay [id number] Social History Date Type Detail Facility Tobacco smoking stat [facility] Unknown if ever smoked [facility] Start: 1987 Sex Assigned At Female F [facility] Start: 04-18-2020 End: 06-20-2020 Tobacco smoking status NHIS Current every day smoker [place], [place] Start: 04-18-2020 End: 09-28-2020 Alcohol intake Current drinker of alcohol (finding) [place] Start: 03-23-2020 History SDOH Alcohol Frequency 2 [place] Start: 03-23-2020 Alcohol Comment yearly [facility] [place] Sex Assigned At Not on file [place] Exposure to SARS-CoV -2 (event) Unable to assess [place] Start: 06-20-2020 End: 09-28-2020 Tobacco use and exposure Never used [place] Start: 09-28-2020 Tobacco smoking stat [facility] Former [place]oker [place] End: 07-21-2020 History of tobacco use Current smoker [place] Start: 09-28-2020 Cigarettes smoked current (pack per day) - Reported [place] [place] Start: 09-25-2020 [facility] to SARS-CoV -2 (event) Not sure [place] Sex Assigned At Sex Assigned At Bir th [facility] Other Goals Date Patient Goal Desired Activity [...] should improve within the next 4-7 days. [facility] Other Evaluation note 08-06-2022 Note Date & [...] no improvement in 2 to 3 days [facility] Other Evaluation note 03-16-2022 Note Date & [...] if symptoms worsen or new symptoms occur. [facility] Other Evaluation note 09-29-2021 Note Date & [...] Patient care instructions given in writting by [facility] document. [facility] Other Evaluation note 09-15-2021 Note Date & [...] water inside ear after shower may use hair tinter on lowest cool setting to blow dry. Follow up with PCP or UC if no improvement in the next 2-3 days. Immediate eval for severe ear pain, severe headache, neck pain/stiffness, pain, erythema, or redness behind the ear, fever, N/V, hearing loss, fever, lethargy, or any other new or concerning symptoms. Patient verbalizes understanding and is agreeable to treatment plan [facility] Other History general Narrative - Reported Note Date & Type Note Facility History general Narrative - Reported Type Medical History anxiety Medical History bipolar Medical History hypertension Surgical History bunion surgery 9 yrs Surgical History bunion surgery 12 years Surgical History clogged tear duct 2 years Surgical History laparoscopy Surgical History heart catheterization Hospitalization History pneumonia 18 mos [facility] Other History general Narrative - Reported Note Date & Type Note Facility History general Narrative - Reported Type Medical History anxiety Medical History bipolar Medical History hypertension Medical History hypocalcemia Surgical History bunion surgery 9 yrs Surgical History bunion surgery 12 years Surgical History clogged tear duct 2 years Surgical History laparoscopy Surgical History heart catheterization Hospitalization History pneumonia 18 mos [facility] Other Summary Purpose Family History No Family History Records FoundNo Family History Records FoundNo Family History Records FoundNo Family History Records FoundNo Family History Records FoundNo Family History Records FoundNo Family History Records FoundNo Family History Records Found Advance Directives No Advanced Directives Records FoundDocuments on File Type Date Recorded Patient Info Analyst Expl anation Advance Directives and Living Will Power of Swing Saw Operator Documents on File Type Date Recorded Patient Info Analyst Expl anation ACP-Advance Directive ACP-Power of Swing Saw Operator Documents on File Type Date Recorded Patient Info Analyst Expl anation ACP-Advance Directive ACP-Power of Swing Saw Operator Assessments Diagnosis Essential hypertension Unspecified essential hypertension QUITA (obstructive sleep apnea) Obstructive sleep apnea (adult) (pediatric) Arthritis Arthropathy, unspecified, site unspecified Anxiety and depression Dysthymic disorder Gastroesophageal reflux disease without esophagitis Esophageal reflux Obesity, Class III, BMI 40-49.9 (morbid obesity) (HCC) Morbid obesity Fibromyalgia Mylagia and myositis, unspecified Obstructive sleep apnea Obstructive sleep apnea (adult) (pediatric) Morbid obesity with BMI of 45.0-49.9, adult ([facility]) Diagnosis Current nicotine use Essential hypertension Unspecified essential hypertension QUITA (obstructive sleep apnea) Obstructive sleep apnea (adult) (pediatric) Arthritis Arthropathy, unspecified, site unspecified Anxiety and depression Dysthymic disorder Gastroesophageal reflux disease without esophagitis Esophageal reflux Obesity, Class III, BMI 40-49.9 (morbid obesity) ([facility]) Morbid obesity Fibromyalgia Mylagia and myositis, [...] questions, PLEASE call your doctor or the [facility] at No alcoholic beverages, [...] and content) DATE CREATED AUTHOR 05/05/2018 [facility] DATE CREATED AUTHOR AUTHOR'S ORGANIZ ATION 12/23/2018 [facility] DATE CREATED AUTHOR AUTHOR'S ORGANIZ ATION 09/29/2020 [facility] DATE CREATED AUTHOR AUTHOR'S ORGANIZ ATION 12/03/2020 [facility] DATE CREATED AUTHOR AUTHOR'S ORGANIZ ATION 04/29/2021 Bereket Brown [facility] DATE CREATED AUTHOR AUTHOR'S ORGANIZ ATION 03/17/2022 [facility] DATE CREATED AUTHOR AUTHOR'S ORGANIZ ATION 01/25/2023 [facility] DATE CREATED AUTHOR AUTHOR'S ORGANIZ ATION 12/30/2023 [facility] EPIC Reason for Visit (unrecogniz ed section and content) Status Reason Specialty Diagnoses / Procedures Re ferred By Contact Referred To Contact Diagnoses GERD (gastroesophageal reflux disease) Obesity GERD, OBESITY Procedures DC ESOPHAGOGASTRODUODENOSCOPY TRANSORAL DIAGNOSTIC EGD ESOPHAGOGASTRODUODENOSCOPY- GI UNIT SCHEDULED Fortunato Uriostegui, [address] [facility] [address] [place] [address] [facility] Ordered Prescriptions (unrec ognized section and [...] BE BASED ON THE PRIMARY CLINICAL RECORDS. [employer] [facility]. provides no warranty or guarantee of the accuracy or completeness of information in this document.
--- NOTE | 2023-12-30 17:37 | PM.STRESS ---
Stress Test Stress Test Requesting physician: Tamiko Hernandez Procedure: Exercise Cardiolite stress test General Information: Reason for Stress Test: Chest pain Cardiac History and Risk Factors: Denies any personal history. Mother from cardiac arrest and father had a some sort of blood clot in heart. Resting 12 - Lead Electrocardiogram: Rate & rhythm: Normal sinus at a rate of 84. [place]: Normal T-waves: Biphasic in V3 and somewhat flattened in V4-6 ST-segments: Downsloping in III Stress Test: Protocol: Deuce protocol was followed, with injection of Cardiolite once target heart rate was achieved. Exercise capacity: Fair exercise capacity. Total exercise time of 5 minutes 2 seconds reached Deuce stage 2 at 2.5 MPH, 12% grade, & 7 METs. Blood pressure: Initial: 138/84, Maximum: 178/84 Rate & rhythm: Patient remained in sinus rhythm during the exercise and recovery portions of the study.? The maximum heart rate was 164, which was 89% of the maximum predicted heart rate 184. ST-segments & T-waves: During the beginning of recovery, there was 1mm ST-segment depression in lead III, but none in II or aVF. At end of recovery, it assumed the baseline downsloping pattern. T-waves were positive in V3-6 the beginning of recovery and resumed baseline orientation. Patient response/symptoms: There were reproducible symptoms to chief complaint (chest pain rated 3/10) that occurred near the same time as the ST-segment depression and recovered as the depression resolved. Interpretation: This is a equivocal stress test based on significant ST-segment changes in only one of the three inferior leads which corresponded to patient's chief complaint of chest pain. Cardiolite imaging interpretation will be reported separately. Clinical correlation required.?
== END 2023-12-30 08:52 | disposition home or self-care (01) ==
LOC: CARD 08:51
PROVIDERS: PCP Nurse Practitioner; Visit Provider Nurse Practitioner
DX: R07.89 Other chest pain (principal)
CPT/HCPCS: 93017

== ENCOUNTER 2024-02-29 09:31 | Outpatient (REF) | payer OTHER, SELFPAY | END 2024-02-29 09:32 | disposition home or self-care (01) | LOC: LAB 09:31 | PROVIDERS: PCP Nurse Practitioner; Visit Provider Obstetrics & Gynecology | DX: N92.1 Excessive and frequent menstruation with irregular cycle (principal) | CPT/HCPCS: 88305 ==

== ENCOUNTER 2024-03-15 09:46 | Outpatient (OUT) | payer OTHER, SELFPAY ==
--- NOTE | 2024-03-15 09:53 | US_ITS ---
[address] [address] Patient Name: BOO LIU MRN: [id number] date: 1985 Sex: F Assigned Patient Location: Current Patient Location: [facility] Accession/Order Number: [id number] Exam Date: 03/15/2024 09:55 Report Date: 03/15/2024 11:45 At the request of: DALIA BUTLER Procedure: US pelvis w/ transvaginal EXAMINATION: US pelvis w/ transvaginal HISTORY: Menorrhagia With Regular Cycle N92.0 COMPARISON: No relevant comparison available. TECHNIQUE: Transabdominal and/or transvaginal sonographic examination was performed as indicated by examination type. FINDINGS: UTERUS: Normal size and appearance. Uterus size: 10.4 x 6.4 x 3.2 cm ENDOMETRIUM: Normal homogeneous appearance. Endometrial thickness: 10 mm RIGHT OVARY: Contains a 3.0 cm benign-appearing cyst. Duplex Doppler demonstrates normal waveform and flow; resistive index 0.5. Ovary size: 5.0 x 3.7 x 2.8 cm LEFT OVARY: Normal size and appearance. Duplex Doppler demonstrates normal waveform and flow; resistive index 0.5. Ovary size: 3.0 x 2.0 x 2.2 cm CUL-DE-SAC: Unremarkable. No significant free fluid. BLADDER: Unremarkable. OTHER: None. US/US pelvis w/ transvaginal IMPRESSION: 1. Unremarkable uterus and endometrium. No specific findings to account for patient's symptoms. 2. Right ovary contains a 3.0 cm benign-appearing cyst. Electronically authenticated by: KADI COOLEY Date: 03/15/2024 11:45
[2024-03-15 11:58] LABS: Basophils Absolute Auto 0.1 10^3/uL (0.0-0.1); Basophils Percent Auto 0.6 % (0.2-2.0); Eosinophils Absolute Auto 0.3 10^3/uL (0.0-0.7); Eosinophils Percent Auto 3.1 % (0.9-7.0); Hematocrit 37.7 % (36.0-48.0); Hemoglobin 12.6 g/dL (12.0-16.0); Immature Granulocytes Abs Auto 0.06 10^3/uL (0.00-0.03); Immature Granulocytes Pct Auto 0.7 % (0.0-0.5); Lymphocytes Absolute Auto 1.7 10^3/uL (1.2-3.8); Lymphocytes Percent Auto 19.3 % (20.5-60.0); Mean Corpuscular HGB Conc 33.4 g/dL (29.9-35.2); Mean Corpuscular Hemoglobin 29.7 pg (26.7-34.0); Mean Corpuscular Volume 88.9 fL (81.0-99.0); Mean Platelet Volume 10.9 fL (9.5-13.5); Monocytes Absolute Auto 0.6 10^3/uL (0.3-0.8); Neutrophils Absolute Auto 6.1 10^3/uL (1.4-6.5); Neutrophils Percent Auto 69.3 % (43.0-75.0); Platelet Count 208 10^3/uL (150-450); Red Blood Count 4.24 10^6/uL (4.20-5.40); Red Cell Distribution Width 12.7 % (11.0-15.0); White Blood Count 8.8 10^3/uL (4.0-11.0)
[2024-03-15 12:49] LABS: INR 1.01; Partial Thromboplastin Time 27.2 sec (22.3-36.2); Prothrombin Time 10.7 sec (9.0-11.6)
[2024-03-15 15:16] LABS: Free T4 0.89 ng/dL (0.76-1.46)
[2024-03-15 15:20] LABS: HCG Quantitative <1 mIU/mL; Thyroid Stimulating Hormone 3.375 uIU/mL (0.358-3.740)
[2024-03-15 15:25] LABS: Estimated Average Glucose 108 mg/dL; Glycohemoglobin A1C 5.4 % (4.5-6.2)
== END 2024-03-15 09:47 | disposition home or self-care (01) ==
LOC: US 09:47
PROVIDERS: PCP Nurse Practitioner; Visit Provider Obstetrics & Gynecology
DX: N92.0 Excessive and frequent menstruation with regular cycle (principal); N83.201 Unspecified ovarian cyst, right side
CPT/HCPCS: 36415; 76830; 76856; 83036; 84439; 84443; 84702; 85025; 85610; 85730

== ENCOUNTER 2024-03-25 10:53 | Outpatient (OUT) | payer OTHER, SELFPAY ==
--- OUTSIDE RECORDS SUMMARY | 2024-03-25 11:05 | XMS_ITS | CCD ---
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 Name Role Phone Sam Collier Unavailable Unavailable GOPAL, ZENOBIAALESAYAHY Attending Unavai lable NATE HERRON Primary Care Unavai lable NATE HERRON Attending Unavai lable HUSSAIN HERRONOAK RIDGEStephanie Primary Care Unavai lable NATE HERRON Admitting Unavai lable NATE HERRON Attending Chi [facility]ON [facility] LETICIA Aly Attending Unavaila ble GOPAL, HUSSAINOAK RIDGEStephanie Primary Care LETICIA Aly Admitting Unavaila LETICIA Auguste Attending Unavaila ble GOPAL, [facility] UnavaKota Callahan Primary Care Provider Kota Reina Primary Care Provider [phone] FORTUNATO URIOSTEGUI Admitting Unavailable FORTUNATO URIOSTEGUI Attending Unavailable KOTA REINA Primary Care Unavailable Annette Strickland Unavailable iLnda Baires Unavailable Liliana Morfin Unavailable AICHHOLZ, OVEN DUMPER LAKEISHA Admitting Unavailable AICHHOLZ, OVEN DUMPER LAKEISHA Attending Unavailable AICHHOLZ, OVEN DUMPER LAKEISHA Primary Care Unavailable AICHHOLZ, OVEN DUMPER [place] Consulting Unavailable AICHHOLZ, OVEN DUMPER LAKEISHA Admitting Unavailable AICHHOLZ, OVEN DUMPER LAKEISHA Attending Unavailable AICHHOLZ, OVEN DUMPER LAKEISHA Primary Care Unavailable AICHHOLZ, OVEN DUMPER [place]KE[place] Consulting Unavailable AICHHOLZ, OVEN DUMPER LAKEISHA Admitting Unavailable AICHHOLZ, OVEN DUMPER LAKEISHA Attending Unavailable AICHHOLZ, OVEN DUMPER LAKEISHA Primary Care Unavailable AICHHOLZ, OVEN DUMPER [place]KE[place] Consulting Unavailable AICHHOLZ, OVEN DUMPER [place]KEISHA Primary Care Unavailable NATALI, TAI Admitting Unavailable TAI HURST Attending Unavailable NATALI, TAI Consulting Unavailable AICHHOLZ, OVEN DUMPER LAKEISHA Admitting Unavailable AICHHOLZ, OVEN DUMPER LAKEISHA Attending Unavailable AICHHOLZ, OVEN DUMPER LAKEISHA Primary Care Unavailable DR GOOD HENSON V Consulting Unavailable AICHHOLZ, OVEN DUMPER [place] Consulting Unavailable AICHHOLZ, OVEN DUMPER LAKEISHA Admitting Unavailable AICHHOLZ, OVEN DUMPER LAKEISHA Attending Unavailable AICHHOLZ, OVEN DUMPER LAKEISHA Primary Care Unavailable AICHHOLZ, OVEN DUMPER [place] Consulting Unavailable AICHHOLZ, OVEN DUMPER LAKEISHA Admitting Unavailable AICHHOLZ, OVEN DUMPER LAKEISHA Attending Unavailable AICHHOLZ, OVEN DUMPER LAKEISHA Primary Care Unavailable AICHHOLZ, OVEN DUMPER [place]KE[place] Consulting Unavailable AICHHOLZ, OVEN DUMPER LAKEISHA Admitting Unavailable AICHHOLZ, OVEN DUMPER LAKEISHA Attending Unavailable AICHHOLZ, OVEN DUMPER LAKEISHA Primary Care Unavailable AICHHOLZ, OVEN DUMPER [place]KE[place] Consulting Unavailable AICHHOLZ, OVEN DUMPER LAKEISHA Admitting Unavailable AICHHOLZ, OVEN DUMPER LAKEISHA Attending Unavailable AICHHOLZ, OVEN DUMPER LAKEISHA Primary Care Unavailable AICHHOLZ, OVEN DUMPER LAKEIS[place] Consulting Unavailable AICHHOLZ, LAKEISHA J. Primary Care Unavailable RUBÉN TOBIN Referring Unavailable AICHHOLZ, LAKEISHA Attending Unavailable WILL MENDOZA Attending Unavailable AICHHOLZ, LAKEISHA Attending Unavailable AICHHOLZ, LAKEISHA Attending Unavailable WILL MENDOZA Attending Unavailable MD Kota Reina Primary Care Provider [phone] Will Mendoza Attending Provider Will Mendoza Admitting Unavailable Will Mendoza Attending Unavailable Kota Reina Primary Care Unavailable FORTUNATO URIOSTEGUI Referring Unavailable AICHHOLZ, LAKEISHA J. Primary Care Unavailable FORTUNATO URIOSTEGUI Attending Unavailable AICHHOLZ, LAKEISHA J. Primary Care Unavailable FORTUNATO URIOSTEGUI Referring Unavailable DAGO MCCULLOUGH Attending Unavailable Unavailable Unavailable Unavailable Allergies Allergy Classification Reported Allergen(s) Allergy Type Date of Onset Reaction(s) Facility Latex (2 sources) Latex; Translations: [LATEX] Substance Allergy 0 [facility] Penicillins (antibiotic) (2 sources) Amoxicillin; Translations: [PENICILLINS] Drug Allergy 4 stomach ache [facility] (10 sources) Amoxicillin Drug Allergy 4 Rash, Nausea And Vomiting [place], [place] (10 sources) Latex Propensity to adverse reactions to drug 0 Rash [place], [place] (1 source) Amoxicillin Drug Allergy [facility] (1 source) Latex Drug allergy (disorder) [facility] (1 source) Amoxicillin Drug Allergy 3 [facility]ository (1 source) Latex Drug allergy (disorder) 3 [facility] Medications Current Medications Medication Drug Class(es) [...] / neomycin 3.5 mg/ml / polymyxin b 73746 unt/ml otic suspension (4 sources) Aminoglycoside Antibacterial, Polymyxin-class Antibacterial, Corticosteroid Start: 08-06-2022 Neomycin-Polymyx in-HC 3.5-39461-3 3 drops both ears Three times a day for 7 days Jul, Not-Taking Start: 09-15-2021 Neomycin-Polym yxin-HC 3.5-93832-1 4 drops into affected ear Otic Three [...] Active Triamcinolone (3 sources) Corticosteroid Start: 02-10-2018 MANOLO garcia February, 40 mg Problems Active Problems Problem Classification Problem Date Documented Date Episodic/Chronic Allergic reactions (2 sources) Latex allergy status; Translations: [Allergy status to penicillin] Onset: 9 Episodic Anxiety disorders (9 sources) Mixed anxiety and depressive disorder; Translations: [Depression with anxiety] Onset: 0 04-17-2020 Chronic Coronary atherosclerosis and other heart disease (4 sources) Other forms of angina pectoris; Translations: [...] Chronic Other 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 (1 source) 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 Onset: 9 Episodic Other ear and sense organ disorders (1 source) Unspecified acute noninfective otitis externa, bilateral Episodic Other lower respiratory disease (1 source) Other forms of dyspnea; Translations: [Other forms of dyspnea] Onset: 4 Episodic Other non-traumatic joint disorders (3 sources) [...] (2 sources) Obesity; Translations: [Obesity] Chronic Other nutritional; endocrine; and metabolic disorders (1 source) Morbid (severe) obesity due to excess calories; Translations: [Morbid (severe) obesity due to excess calories] Onset: 4 Chronic Other screening for suspected conditions (not mental disorders or infectious disease) (3 sources) Abnormal electrocardiogram [ECG] [EKG]; Translations: [Abnormal electrocardiogram [ECG] [EKG]] Onset: 9 Episodic Other upper respiratory infections (2 sources) Acute pharyngitis, unspecified; Translations: [Streptococcal pharyngitis] Episodic Residual codes; unclassified (8 sources) Obstructive sleep apnea syndrome; Translations: [QUITA (obstructive sleep apnea)] Onset: 0 04-17-2020 Chronic Residual codes; unclassified (1 source) Obstructive sleep apnea (adult) (pediatric); Translations: [Obstructive sleep apnea (adult) (pediatric)] Onset: 4 Chronic Residual codes; unclassified (1 source) Family history of ischemic heart disease and other diseases of the circulatory system; Translations: [Family history of ischemic heart disease and other diseases of the circulatory system] Onset: 4 Episodic Substance-related disorders (2 sources) Nicotine dependence, unspecified, [...] Test Name Value Interpretation Reference Range Facility [facility] 02-29-2024 L Specimen: [id number] Received: 03/01/24 Status: GRETA Terrytucker Num: [id number] Spec Type: Surgical Subm Dr: Will Mendoza Tissues: A Endometrium - Biopsy (EMB) Procedures: HE/2, Gross/Micro L4 Age/ Patient Sex Location Account Attending Physician Boo Liu 38/F [facility] [id number] Will Mendoza SPEC NUM: [id number] RECD: 03/01/24 STATUS: GRETA TERRYTucker NUM: [id number] CELIO: 02/29/24 DR: Will Mendoza ENTERED: 03/01/24 [facility] DR: Jayla,Lab SPEC TYPE: Surgical DEPT: JOCELYNE ESPINOZA ORDERED: HE/2, Gross/Micro L4 ORDERED: HE/2, Gross/Micro L4 Pathological Diagnosis Endometrial biopsy: -Abundant mucus exudate with some admixed portions of endocervical glandular elements, including occasional small glandular strips with tubal metaplasia, suggesting at least weakly type proliferative endometrium, otherwise is limited for overall endometrial assessment -Occasional maturing squamous metaplasia and occasional partially degenerated squamous cells consistent with ASCUS cell, otherwise without obvious dysplasia Clinical Information Menorrhagia with irregular periods (N92.1) Gross Description Received in formalin, labeled with the patient's name, date of and EM BX is an aggregate of peña tissue and mucus altogether measuring 2.2 x 1.8 x 0.3 cm, entirely submitted in A1. -------- Specimen: [id number] Received: 03/01/24 Status: GRETA Bird Num: [id number] Spec Type: Surgical Subm Dr: Will Mendoza Tissues: A Endometrium - Biopsy (EMB) Procedures: Syed PEREZ/Brandan L4 -------- Patient: Boo Liu [id number] (Continued) -------- Specimen: [id number] Received: 03/01/24 (Continued) Signed (signature on file) Casie Myrick MD 03/03/242057 -------- Specimen: [id number] Received: 03/01/24 Status: GRETA Bird Num: [id number] Spec Type: Surgical Subm Dr: Will Mendoza Tissues: A Endometrium - Biopsy (EMB) Procedures: DAMONSyed Cardoso/Brandan L4 -------- Patient: Boo Liu [id number] (Continued) -------- Specimen: [id number] Received: 03/01/24 (Continued) CPT Codes 44687 -------- -------- Specimen: [id number] Received: 03/01/24 Status: GRETA Bird Num: [id number] Spec Type: Surgical Subm Dr: Will Mendoza Tissues: A Endometrium - Biopsy (EMB) Procedures: HE/2, Gross/Micro L4 -------- Patient: Boo Liu [id number] (Continued) -------- Signed (signature on file) Chin-Vinicius Myrick MD 03/03/242057 Normal [facility] Antithrombin III Roosevelt 02-08 Antithrombin III Act 102 % Normal 83-122 [facility] Comment on above: Result Comment: Patients receiving Hirudin may have a falsely decreased Antitrombin III Activity. Performed By: #### L UPPRO #### [facility] [address] [place] [address] Cabinet Builder: Mazin Franklin MD [place] [id number] Cabinet Builder: Bobby Flanagan MD #### AF5MUT, APTMUT #### [facility] [address] [place] [address] Cabinet Builder: Jeffy Benz MD #### HOCYS, PROCAC, AT3A, B2GGM, PROSAC, FA8 #### [facility] [address] [place] [id number] Cabinet Builder: Bobby Flanagan MD #### DIME #### [facility] [address] [place] [address] Cabinet Builder: Mazin Franklin MD Factor VIII Activityon 02-08 Factor VIII Activity 176 % High 50-150 [facility] Comment on above: Performed By: #### L UPPRO #### [facility] [address] [place] [address] Cabinet Builder: Mazin Franklin MD [address] [address] Cabinet Builder: Bobby Flanagan MD #### AF5MUT, APTMUT #### [facility] [address] [place], [place] [id number] Cabinet Builder: Jeffy Benz MD #### HOCYS, PROCAC, AT3A, B2GGM, PROSAC, FA8 #### [address] [address] Cabinet Builder: Bobby Flanagan MD #### DIME #### [facility] [address] [place] [address] Cabinet Builder: Mazin Franklin MD Lupus Anticoagulanton 2023 Dilute Emanuel Viper Negative Normal [facility] Comment on above: Performed By: #### L UPPRO #### [facility] [address] [place] [address] Cabinet Builder: Mazin Franklin MD [address] [address] Cabinet Builder: Bobby Flanagan MD #### AF5MUT, APTMUT #### [facility] [address] [place], [place] [id number] Cabinet Builder: Jeffy Benz MD #### HOCYS, PROCAC, AT3A, B2GGM, PROSAC, FA8 #### [address] [address] Cabinet Builder: Bobby Flanagan MD #### DIME #### [facility] [address] [place] [address] Cabinet Builder: Mazin Franklin MD PT Mutation [id number] 02-09-20 24 PT [id number] VARIANT Negative Normal [facility] Comment on above: Result Comment: (NOT E) Indication for testing: Assess genetic risk for thrombosis. NEGATIVE: The Factor II, prothrombin A45724H mutation, was not detected. Other causes of elevated prothrombin levels and hereditary forms of venous thrombosis have not been excluded. Recommendations: If clinically indicated, testing for other inherited or acquired thrombophilic disorders is recommended including DNA testing for the factor V Leiden mutation, measurement of total plasma homocysteine concentration, serological assays for anticardiolipin antibodies, multiple phospholipid-dependent coagulation assays for lupus inhibitor, protein C activity, protein S activity or free protein S antigen, and antithrombin activity. This result has been reviewed and approved by Coreen Schilling M.D., Ph.D. 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 The expression of Factor II thrombophilia is impacted by coexisting genetic thrombophilic disorders, acquired thrombophilic disorders (eg, malignancy, hyperhomocysteinemia, high factor VIII levels), and circumstances including: , oral contraceptive use, hormone replacement therapy, selective estrogen receptor modulators, travel, central venous catheters, surgery, and organ transplantation. INCIDENCE: Approximately 2 percent of Caucasians and 0.3 percent of Americans are heterozygous; homozygosity occurs in 1 in 10,000 individuals. INHERITANCE: Incomplete autosomal dominant. PENETRANCE: The risk of thrombosis is increased 2-4 fold for heterozygotes and further increased for homozygotes. CAUSE: Homozygosity or heterozygosity for F2 c.*97G>A (B66678T). PATHOGENIC VARIANT TESTED: F2 c.*97G>A (T47966N). CLINICAL SENSITIVITY FOR VENOUS THROMBOSIS: Approximately 10 percent. METHODOLOGY: Polymerase chain reaction and fluorescence monitoring. ANALYTICAL SENSITIVITY AND SPECIFICITY: 99 percent. LIMITATIONS: Diagnostic errors can occur due to rare sequence variations. F2 gene variants, other than c.*97G>A (A12253H), will not be detected. This test was developed and its performance characteristics determined by [facility]. It has not been cleared or approved by the [place] Food and Drug Administration. This test was performed in a CLIA certified laboratory and is intended for clinical purposes. Counseling and informed consent are recommended for genetic testing. Consent forms are available online. Performed By: [facility] [address] [place] [address] Refrigeration System Installer: Yves Perez MD, PhD [place] Number: [id number] Performed By: #### L UPPRO #### [facility] [address] [place] [address] Cabinet Builder: Mazin Franklin MD [address] [address] Cabinet Builder: Bobby Flanagan MD #### AF5MUT, APTMUT #### [address] [phone] Cabinet Builder: Jeffy Benz MD #### HOCYS, PROCAC, AT3A, B2GGM, PROSAC, FA8 #### [address] [address] Cabinet Builder: Bobby Flanagan MD #### DIME #### [facility] [address] [place] [address] Cabinet Builder: Mazin Franklin MD PT PCR SPECIMEN Whole Blood Normal [facility] Comment on above: Performed By: #### L UPPRO #### [facility] [place] [address] Cabinet Builder: Mazin Franklin MD [address] [address] Cabinet Builder: Bobby Flanagan MD #### AF5MUT, APTMUT #### [address] [phone] Cabinet Builder: Jeffy Benz MD #### HOCYS, PROCAC, AT3A, B2GGM, PROSAC, FA8 #### [address] [address] Cabinet Builder: Bobby Flanagan MD #### DIME #### [facility] [address] [place] [address] Cabinet Builder: Mazin Franklin MD Protein C Activityon 024 Protein C Activity 96 % Normal >80 [facility] Comment on above: Result Comment: Patients on warfarin will have decreased functional protein C/S values. Warfarin therapy should be discontinued for two weeks for accurate measurement of functional protein C/S levels. Artifactually elevated levels of functional protein C/S may be seen in patients receiving heparin,rivaroxaban,apixaban,edozaban,and dabiqatran. Decreased functionality may be seen in patients with abnormally elevated levels of Factor VIII. Performed By: #### L UPPRO #### [facility] [address] [place] [address] Cabinet Builder: Mazin Franklin MD [address] [phone] Cabinet Builder: Bobby Flanagan MD #### AF5MUT, APTMUT #### [facility] [address] [place] [address] Cabinet Builder: Jeffy Benz MD #### HOCYS, PROCAC, AT3A, B2GGM, PROSAC, FA8 #### [address] [address] Cabinet Builder: Bobby Flanagan MD #### DIME #### [facility] [address] [place] [address] Cabinet Builder: Mazin Franklin MD Protein S Activityon 024 Protein S Activity 90 % Normal 59-130 [facility] Comment on above: Result Comment: Patients on warfarin will have decreased functional protein C/S values. Warfarin therapy should be discontinued for two weeks for accurate measurement of functional protein C/S levels. Artifactually elevated levels of functional protein C/S may be seen in patients receiving heparin,rivaroxaban,apixaban,edozaban,and dabiqatran. Decreased functionality may be seen in patients with abnormally elevated levels of Factor VIII. Performed By: #### L UPPRO #### [facility] [place] [address] Cabinet Builder: Mazin Franklin MD [address] [address] Cabinet Builder: Bobby Flanagan MD #### AF5MUT, APTMUT #### [facility] [address] [place] [address] Cabinet Builder: Jeffy Benz MD #### HOCYS, PROCAC, AT3A, B2GGM, PROSAC, FA8 #### [address] [address] Cabinet Builder: Bobby Flanagan MD #### DIME #### [facility] [address] [place] [address] Cabinet Builder: Mazin Franklin MD B2 Glycoprotein G,Mon 2023 B2 Glycoprot I, IgG <0.6 Normal 0.0-7.0 [facility] Comment on above: Result Comment: Reference Range: <7.0 Negative 7.0-10.0 Equivocal >10.0 Positive Performed By: #### L UPPRO #### [facility] [address] [place] [address] Cabinet Builder: Mazin Franklin MD [address] [address] Cabinet Builder: Bobby Flanagan MD #### AF5MUT, APTMUT #### [facility] [address] [place] [address] Cabinet Builder: Jeffy Benz MD #### HOCYS, PROCAC, AT3A, B2GGM, PROSAC, FA8 #### [address] [address] Cabinet Builder: Bobby Flanagan MD #### DIME #### [facility] [place] [address] Cabinet Builder: Mazin Franklin MD B2 Glycoprot I, IgM <0.9 Normal 0.0-7.0 [facility] Comment on above: Result Comment: Reference Range: <7.0 Negative 7.0-10.0 Equivocal >10.0 Positive Performed By: #### L UPPRO #### [facility] [address] [place] [address] Cabinet Builder: Mazin Franklin MD [address] [address] Cabinet Builder: Bobby Flanagan MD #### AF5MUT, APTMUT #### [facility] [address] [id number] Cabinet Builder: Jeffy Benz MD #### HOCYS, PROCAC, AT3A, B2GGM, PROSAC, FA8 #### [address] [address] Cabinet Builder: Bobby Flanagan MD #### DIME #### [facility] [address] [place] [address] Cabinet Builder: Mazin Franklin MD Factor V Mutationon 02-08-20 24 F 5 SPECIMEN Whole Blood Normal [facility] Comment on above: Performed By: #### L UPPRO #### [facility] [address] [place] [address] Cabinet Builder: Mazin Franklin MD [address] [address] Cabinet Builder: Bobby Flanagan MD #### AF5MUT, APTMUT #### [facility] [address] [place] [address] Cabinet Builder: Jeffy Benz MD #### HOCYS, PROCAC, AT3A, B2GGM, PROSAC, FA8 #### [facility] [address] [place], [place] [id number] Cabinet Builder: Bobby Flanagan MD #### SOMMER #### [facility] [address] [place] [place], [place] [id number] Cabinet Builder: Mazin Franklin MD FACTOR [address] [facility] Comment on above: Result Comment: (NOT E) Indication for testing: Assess genetic risk for thrombosis. NEGATIVE: The factor V Leiden variant, c.1601G>A; p.Vhj682Vfs, was not detected. This does not exclude a genetic cause for thrombophilia. If this individual has had a previous venous thromboembolism, this negative result is unlikely to significantly reduce the risk for recurrence; thus, future clinical management to reduce recurrence should not be altered. This result has been reviewed and approved by Coreen Schilling M.D., Ph.D. BACKGROUND INFORMATION: Factor V Leiden (F5) R506Q Mutation CHARACTERISTICS: Venous thromboembolism (VTE) is multifactorial caused by a combination of genetic and environmental factors. The Factor V Leiden (FVL) variant is the most common cause of inherited VTEs, accounting for over 90 percent of activated protein C (APC) resistance. Because the FVL variant eliminates the APC cleavage site, factor V is inactivated slower, thus persisting longer in blood circulation, leading to more thrombin production. Other genetic risk factors for VTE include, male sex and variants in antithrombin, protein C, protein S, or factor XIII. Non-genetic risk factors include, age, smoking, prolonged immobilization, malignant neoplasms, surgery, , oral contraceptives, estrogen replacement therapy, tamoxifen and raloxifene therapy. INCIDENCE OF FACTOR V LEIDEN VARIANT: Approximately 5 percent of Caucasians, 2 percent of Hispanics, 1 percent of Americans and 0.5 percent of Asians are heterozygous; homozygosity occurs in 1 in 1500 Caucasians. INHERITANCE: Semi-dominant; both heterozygotes and homozygotes are at increased risk for VTE. PENETRANCE: Lifetime risk of VTE is 10 percent for heterozygotes and 80 percent of homozygotes. 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 Legacy nomenclature: R506Q (1691G>A) CLINICAL SENSITIVITY: 20-50 percent of individuals with an isolated VTE have the FVL variant. METHODOLOGY: Polymerase chain reaction and fluorescence monitoring. ANALYTICAL SENSITIVITY AND SPECIFICITY: 99 percent. LIMITATIONS: Diagnostic errors can occur due to rare sequence variations. F5 gene mutations, other than p.Lfn811Brj, will not be detected. This test was developed and its performance characteristics determined by [facility]. It has not been cleared or approved by the US Food and Drug Administration. This test was performed in a CLIA certified laboratory and is intended for clinical purposes. Counseling and informed consent are recommended for genetic testing. Consent forms are available online. Performed By: [facility] [address] [place] [address] Refrigeration System Installer: Yves Perez MD, PhD CLIA Number: [id number] Performed By: #### L UPPRO #### [facility] [address] [place] [address] Cabinet Builder: Mazin Franklin MD [address] [phone] Cabinet Builder: Bobby Flanagan MD #### AF5MUT, APTMUT #### [address] [phone] Cabinet Builder: Jeffy Benz MD #### HOCYS, PROCAC, AT3A, B2GGM, PROSAC, FA8 #### [address] [address] Cabinet Builder: Bobby Flanagan MD #### DIME #### [facility] [place] [address] Cabinet Builder: Mazin Franklin MD Lupus Anticoagulanton 2023 Anticardiolipin IgA 1.7 APL Normal 0.0-14.0 [facility] Comment on above: Result Comment: Reference Range: <14.0 Negative 14.0-20.0 Equivocal >20.0 Positive When results are Equivocal, it is recommended to retest after 4-6 weeks. Performed By: #### L UPPRO #### [facility] [place] [address] Cabinet Builder: Mazin Franklin MD [address] [address] Cabinet Builder: Bobby Flanagan MD #### AF5MUT, APTMUT #### [facility] [address] [place] [address] Cabinet Builder: Jeffy Benz MD #### HOCYS, PROCAC, AT3A, B2GGM, PROSAC, FA8 #### [address] [address] Cabinet Builder: Bobby Flanagan MD #### DIME #### [facility] [address] [place] [address] Cabinet Builder: Mazin Franklin MD Anticardiolipin IgG 0.8 GPL Normal 0.0-10.0 [facility] Comment on above: Result Comment: Reference Range: <10.0 Negative 10.0-40.0 Equivocal >40.0 Positive Performed By: #### L UPPRO #### [facility] [address] [place] [address] Cabinet Builder: Mazin Franklin MD [address] [address] Cabinet Builder: Bobby Flanagan MD #### AF5MUT, APTMUT #### [facility] [address] [place] [address] Cabinet Builder: Jeffy Benz MD #### HOCYS, PROCAC, AT3A, B2GGM, PROSAC, FA8 #### [address] [address] Cabinet Builder: Bobby Flanagan MD #### DIME #### [facility] [address] [place] [address] Cabinet Builder: Mazin Franklin MD Anticardiolipin IgM 2.6 MPL Normal 0.0-10.0 [facility] Comment on above: Result Comment: Reference Range: <10.0 Negative 10.0-40.0 Equivocal >40.0 Positive Performed By: #### L UPPRO #### [facility] [address] [place] [address] Cabinet Builder: Mazin Franklin MD [id number] [place], [place] [id number] Cabinet Builder: Bobby Flanagan MD #### AF5MUT, APTMUT #### [facility] [address] [place] [address] Cabinet Builder: Jeffy Benz MD #### HOCYS, PROCAC, AT3A, B2GGM, PROSAC, FA8 #### [address] [address] Cabinet Builder: Bobby Flanagan MD #### DIME #### [facility] [address] [place] [address] Cabinet Builder: Mazin Franklin MD D-Dimer Teston 02-05-2024 D-Dimer Test 0.29 ug/mL FEU Normal 0.00-0.59 [facility] Comment on above: Result Comment: When combined with a low clinical probability, a D dimer value of <0.50 ug/mL FEU is considered negative for DVT and PE (negative predictive value of 98%, sensitivity of 97%). If this test is not being used to help rule out DVT and PE, then the following reference range should be utilized: 0.00 - 0.59 ug/mL FEU. The D-Dimer assay is intended for use as an aid in the diagnosis of venous thromboembolism (DVT and PE) and the results should be interpreted in conjunction with the patient's medical history, clinical presentation, and other findings. Elevated levels of D-dimer activity can be seen in any state of coagulation activation and is not recommended in patients with therapeutic dose anticoagulant therapy for >24 hours, fibrinolytic therapy within the previous 7 days, trauma or surgery within the previous 4 weeks, disseminated malignancies, aortic aneurysm, sepsis, severe infections, pneumonia, severe skin infections, liver cirrhosis, advanced age, coronary disease, diabetes, and . A very low percentage of patients with DVT may yield D-dimer results below the cutoff of 0.5 ug/mL FEU. This is known to be more prevalent in patients with distal DVT. Performed By: #### L UPPRO #### [facility] [address] [place] [address] Cabinet Builder: Mazin Franklin MD [address] [phone] Cabinet Builder: Bobby Flanagan MD #### AF5MUT, APTMUT #### [facility] [address] [place] [address] Cabinet Builder: Jeffy Benz MD #### HOCYS, PROCAC, AT3A, B2GGM, PROSAC, FA8 #### [facility] [address] [place] [address] [phone] Cabinet Builder: Bobby Flanagan MD #### DIME #### [facility] [address] [place] [address] Cabinet Builder: Mazin Franklin MD Homocysteineon 02-05-2024 Homocysteine 10.8 umol/L Normal 0.0-15.0 [facility] Comment on above: Performed By: #### L UPPRO #### [facility] [address] [place] [address] Cabinet Builder: Mazin Franklin MD [facility] [address] [place] [address] [phone] Cabinet Builder: Bobby Flanagna MD #### AF5MUT, APTMUT #### [facility] [address] [place] [address] Cabinet Builder: Jeffy Benz MD #### HOCYS, PROCAC, AT3A, B2GGM, PROSAC, FA8 #### [address] [address] Cabinet Builder: Bobby Flanagan MD #### DIME #### [facility] [address] [place] [address] Cabinet Builder: Mazin Franklin MD Lupus Anticoagulanton 2023 aPTT Coag (Bld) [Time] 25.0 s Normal 23.9-33.8 [facility] Comment on above: Result Comment: IV Heparin Therapy Range: 62.0-94.0 Performed By: #### L UPPRO #### [facility] [address] [place] [address] Cabinet Builder: Mazin Franklin MD [address] [address] Cabinet Builder: Bobby Flanagan MD #### AF5MUT, APTMUT #### [facility] [address] [place], [place] [id number] Cabinet Builder: Jeffy Benz MD #### HOCYS, PROCAC, AT3A, B2GGM, PROSAC, FA8 #### [address] [address] Cabinet Builder: Bobby Flanagan MD #### DIME #### [facility] [address] [place] [address] Cabinet Builder: Mazin Franklin MD INR Coag (PPP) [Relative time] 1.0 {INR} Normal [facility] Comment on above: Result Comment: Therapeutic Range: Moderate Anticoagulant Intensity: INR = 2.0-3.0 High Anticoagulant Intensity: INR = 2.5-3.5 Performed By: #### L UPPRO #### [facility] [address] [place] [address] Cabinet Builder: Mazin Franklin MD [address] [address] Cabinet Builder: Bobby Flanagan MD #### AF5MUT, APTMUT #### [facility] [address] [place] [address] Cabinet Builder: Jeffy Benz MD #### HOCYS, PROCAC, AT3A, B2GGM, PROSAC, FA8 #### [address] [address] Cabinet Builder: Bobby Flanagan MD #### DIME #### [facility] [address] [place] [address] Cabinet Builder: Mazin Franklin MD PT Coag (PPP) [Time] 13.3 s Normal 11.5-14.2 [facility] Comment on above: Performed By: #### L UPPRO #### [facility] [address] [place] [address] Cabinet Builder: Mazin Franklin MD [address] [address] Cabinet Builder: Bobby Flanagan MD #### AF5MUT, APTMUT #### [facility] [address] [place], [place] [id number] Cabinet Builder: Jeffy Benz MD #### HOCYS, PROCAC, AT3A, B2GGM, PROSAC, FA8 #### [address] [address] Cabinet Builder: Bobby Flanagan MD #### DIME #### [facility] [address] [place] [address] Cabinet Builder: Mazin Franklin MD Office Visiton 01-11-2024 Follow-up visit [id number] Boo Liu 1985 F Date Provider Department Center 01/11/2024 3848-SANDRINEFIDELDAGO WINTER LILIAM [place] No family history on file Level of Service:73971 DC OFFICE/OUTPATIENT NEW MODERATE MDM 45 MINUTES Reason for Visit and Comments: New Patient [632] - Abnormal stress test Normal [facility] XR FOOT RT MIN 3 VIEWSon XR [...] by: Tiff PHILLIPS Date: 2023-01-24 01:10 Normal [facility] US THYROIDon 12-18-2022 US THYROID EXAMINATION: US [...] by: GOOD HENSON Date: 2022-12-18 15:15 Normal [facility] Quick Strepon 12-04-2022 S. pyogenes Org specific cx Ql (Throat) Positive [facility] Other Quick Strep [facility] Other PROF CHEM 8 (BAS METB)on Anion gap [Moles/Vol] 13.1 mmol/L Normal [facility] Comment on above: Performed By: #### B MP #### [facility] [address] [address] [address] Claudia Myrick Calcium [Mass/Vol] 9.3 mg/dL Normal 8.5-10.1 [facility] Comment on above: Performed By: #### B MP #### [facility] [address] [address] [address] Claudia Myrick Chloride [Moles/Vol] 102 mmol/L Normal 98-107 [facility] Comment on above: Performed By: #### B MP #### [facility] [address] [place] [address] Dr. Claudia Myrick CO2 [Moles/Vol] 25.4 mmol/L Normal 21.0-32.0 [facility] Comment on above: Performed By: #### B MP #### [facility] [address] [address] [address] Claudia Myrick Creatinine [Mass/Vol] 0.75 mg/dL Normal 0.55-1.02 [facility] Comment on above: Performed By: #### B MP #### [facility] [address] [place] [address] Dr. Claudia Myrick EGFR-AF COLOMBIAN >60 Normal >=60 [facility] Comment on above: Performed By: #### B MP #### [facility] [address] [address] [address] Claudia Myrick EGFR-NON AF COLOMBIAN >60 Normal >=60 [facility] Comment on above: Performed By: #### B MP #### [facility] [address] [address] [address] Claudia Myrick Glucose [Mass/Vol] 90 mg/dL Normal 74-106 [facility] Comment on above: Performed By: #### B MP #### [facility] [address] [place] [address] Dr. Claudia Myrick Potassium [Moles/Vol] 4.5 mmol/L Normal 3.5-5.1 [facility] Comment on above: Performed By: #### B MP #### [facility] [address] [place] [address] Dr. Claudia Myrick Sodium [Moles/Vol] 136 mmol/L Normal 136-145 [facility] Comment on above: Performed By: #### B MP #### [facility] [address] [place] [address] Dr. Claudia Myrick Urea nitrogen [Mass/Vol] 15.0 mg/dL Normal 7.0-18.0 [facility] Comment on above: Performed By: #### B MP #### [facility] [address] [place] [address] Dr. Claudia Myrick Urea nitrogen/Creatinine [Mass ratio] 20.0 mg/mg Normal [facility] Comment on above: Performed By: #### B MP #### [facility] [address] [place] [address] Dr. Claudia Myrick PROF CHEM 8 (BAS METB)on Anion gap [Moles/Vol] 14.6 mmol/L Normal [facility] Comment on above: Performed By: #### B MP #### [facility] [address] [place] [address] Dr. Claudia Myrick Calcium [Mass/Vol] 8.7 mg/dL Normal 8.5-10.1 [facility] Comment on above: Performed By: #### B MP #### [facility] [address] [place] [address] Dr. Claudia Myrick Chloride [Moles/Vol] 104 mmol/L Normal 98-107 [facility] Comment on above: Performed By: #### B MP #### [facility] [address] [place] [address] Dr. Claudia Myrick CO2 [Moles/Vol] 23.7 mmol/L Normal 21.0-32.0 [facility] Comment on above: Performed By: #### B MP #### [facility] [address] [place] [address] Dr. Claudia Myrick Creatinine [Mass/Vol] 1.07 mg/dL Critically high 0.55-1.02 [facility] Comment on above: Performed By: #### B MP #### [facility] [address] [address] [address] Claudia Myrick EGFR-AF COLOMBIAN >60 Normal >=60 [facility] Comment on above: Performed By: #### B MP #### [facility] [address] [address] [address] Claudia Myrick EGFR-NON AF COLOMBIAN 58 mL/min/1.73m2 Critically low >=60 [facility] Comment on above: Performed By: #### B MP #### [facility] [address] [address] [address] Claudia Myrick Glucose [Mass/Vol] 129 mg/dL Critically high 74-106 [facility] Comment on above: Performed By: #### B MP #### [facility] [address] [address] [address] Claudia Myrick Potassium [Moles/Vol] 3.2 mmol/L Critically low 3.5-5.1 [facility] Comment on above: Performed By: #### B MP #### [facility] [address] [address] [address] Claudia Myrick Sodium [Moles/Vol] 140 mmol/L Normal 136-145 [facility] Comment on above: Performed By: #### B MP #### [facility] [address] [address] [address] Claudia Myrick Urea nitrogen [Mass/Vol] 9.0 mg/dL Normal 7.0-18.0 [facility] Comment on above: Performed By: #### B MP #### [facility] [address] [address] [address] Claudia Myrick Urea nitrogen/Creatinine [Mass ratio] 8.4 mg/mg Normal [facility] Comment on above: Performed By: #### B MP #### [facility] [address] [address] [address] Claudia Myrick PROF CHEM 8 (BAS METB)on Anion gap [Moles/Vol] 11.1 mmol/L Normal [facility] Comment on above: Performed By: #### B MP #### [facility] [address] [address] [address] Claudia Myrick Calcium [Mass/Vol] 9.5 mg/dL Normal 8.5-10.1 [facility] Comment on above: Performed By: #### B MP #### [facility] [address] [address] [address] Claudia Myrick Chloride [Moles/Vol] 104 mmol/L Normal 98-107 [facility] Comment on above: Performed By: #### B MP #### [facility] [address] [place] [address] Dr. Claudia Myrick CO2 [Moles/Vol] 29.9 mmol/L Normal 21.0-32.0 [facility] Comment on above: Performed By: #### B MP #### [facility] [address] [address] [address] Claudia Myrick Creatinine [Mass/Vol] 1.05 mg/dL Critically high 0.55-1.02 [facility] Comment on above: Performed By: #### B MP #### [facility] [address] [place] [address] Dr. Claudia Myrick EGFR-AF COLOMBIAN >60 Normal >=60 [facility] Comment on above: Performed By: #### B MP #### [facility] [address] [address] [address] Claudia Myrick EGFR-NON AF COLOMBIAN =60 Normal >=60 [facility] Comment on above: Performed By: #### B MP #### [facility] [address] [address] [address] Claudia Myrick Glucose [Mass/Vol] 122 mg/dL Critically high 74-106 [facility] Comment on above: Performed By: #### B MP #### [facility] [address] [place] [address] Dr. Claudia Myrick Potassium [Moles/Vol] 3.0 mmol/L Critically low 3.5-5.1 [facility] Comment on above: Performed By: #### B MP #### [facility] [address] [place] [address] Dr. Claudia Myrick Sodium [Moles/Vol] 143 mmol/L Normal 136-145 [facility] Comment on above: Performed By: #### B MP #### [facility] [address] [place] [address] Dr. Claudia Myrick Urea nitrogen [Mass/Vol] 11.0 mg/dL Normal 7.0-18.0 [facility] Comment on above: Performed By: #### B MP #### [facility] [address] [place] [address] Dr. Claudia Myrick Urea nitrogen/Creatinine [Mass ratio] 10.5 mg/mg Normal [facility] Comment on above: Performed By: #### B MP #### [facility] [address] [place] [address] Dr. Claudia Myrick POTASSIUMon 04-23-2022 Potassium [Moles/Vol] 3.2 mmol/L Critically low 3.5-5.1 [facility] Comment on above: Performed By: #### K #### [facility] [address] [place] [address] Dr. Claudia Myrick THYROGLOBULIN ABon Thyroglobulin Antibody <1.0 Normal 0.0-0.9 [facility] Comment on above: Result Comment: Thyr oglobulin Antibody measured by [employer] Performed By: #### T HYGAB #### [facility] [address] [place] [address] Dr. Claudia Myrick THYROID PEROXIDASE ABon 06-2 Thyroid Peroxidase (TPO) Ab <8 Normal 0-34 [facility] Comment on above: Performed By: #### T POAB #### [facility] [address] [place] [address] Dr. Claudia Myrick CBC AUTO DIFFon 04-08-2022 BASO # 0.1 103/ul Normal 0.0-0.1 [facility] Comment on above: Performed By: #### C BC #### [facility] [address] [address] [address] Claudia Myrick Basophils/100 WBC (Bld) 0.6 % Normal 0.2-2.0 [facility] Comment on above: Performed By: #### C BC #### [facility] [address] [place] [address] Dr. Claudia Myrick EO # 0.3 103/ul Normal 0.0-0.7 [facility] Comment on above: Performed By: #### C BC #### [facility] [address] [place] [address] Dr. Claudia Myrick Eosinophils/100 WBC (Bld) 4.2 % Normal 0.9-7.0 [facility] Comment on above: Performed By: #### C BC #### [facility] [address] [place] [address] Dr. Claudia Myrick Erythrocyte distribution width (RBC) [Ratio] 12.8 % Normal 11.0-15.0 [facility] Comment on above: Performed By: #### C BC #### [facility] [address] [place] [address] Dr. Claudia Myrick Hematocrit (Bld) [Volume fraction] 42.0 % Normal 36.0-48.0 [facility] Comment on above: Performed By: #### C BC #### [facility] [address] [place] [address] Dr. Claudia Myrick Hemoglobin (Bld) [Mass/Vol] 14.1 g/dL Normal 12.0-16.0 [facility] Comment on above: Performed By: #### C BC #### [facility] [address] [place] [address] Dr. Claudia Myrick IG # 0.05 10e3/ul Critically high 0.00-0.[address] [facility] Comment on above: Performed By: #### C BC #### [facility] [address] [place] [address] Dr. Claudia Myrick IG % 0.6 % Critically high 0.0-0.5 [facility] Comment on above: Performed By: #### C BC #### [facility] [address] [place] [address] Dr. Claudia Myrick LYMPH # 1.7 103/ul Normal 1.2-3.8 [facility] Comment on above: Performed By: #### C BC #### [facility] [address] [place] [address] Dr. Claudia Myrick Lymphocytes/100 WBC (Bld) 21.1 % Normal 20.5-60.0 [facility] Comment on above: Performed By: #### C BC #### [facility] [address] [place] [address] Dr. Claudia Myrick MANUAL DIFF REQ NO Normal [facility] Comment on above: Performed By: #### C BC #### [facility] [address] [place] [address] Dr. Claudia Myrick MCH (RBC) [Entitic mass] 30.6 pg Normal 26.7-34.0 [facility] Comment on above: Performed By: #### C BC #### [facility] [address] [place] [address] Dr. Claudia Myrick MCHC (RBC) [Mass/Vol] 33.6 g/dL Normal 29.9-35.2 [facility] Comment on above: Performed By: #### C BC #### [facility] [address] [place] [address] Dr. Claudia Myrick MCV (RBC) [Entitic vol] 91.1 fL Normal 81.0-99.0 [facility] Comment on above: Performed By: #### C BC #### [facility] [address] [place] [address] Dr. Claudia Myrick MONO # 0.6 103/ul Normal 0.3-0.8 [facility] Comment on above: Performed By: #### C BC #### [facility] [address] [place] [address] Dr. Claudia Myrick Monocytes/100 WBC (Bld) 7.1 % Normal 1.7-12.0 [facility] Comment on above: Performed By: #### C BC #### [facility] [address] [place] [address] Dr. Claudia Myrick NEUT # 5.4 103/ul Normal 1.4-6.5 [facility] Comment on above: Performed By: #### C BC #### [facility] [address] [place] [address] Dr. Claudia Myrick Neutrophils/100 WBC (Bld) 66.4 % Normal 43.0-75.0 [facility] Comment on above: Performed By: #### C BC #### [facility] [address] [place] [address] Dr. Claudia Myrick Platelet mean volume (Bld) [Entitic vol] 11.1 fL Normal 9.5-13.5 [facility] Comment on above: Performed By: #### C BC #### [facility] [address] [place] [address] Dr. Claudia Myrick PLT 213 103/ul Normal 150-450 [facility] Comment on above: Performed By: #### C BC #### [facility] [address] [place] [address] Dr. Claudia Myrick RBC 4.61 106/ul Normal 4.20-5.40 [facility] Comment on above: Performed By: #### C BC #### [facility] [address] [place] [address] Dr. Claudia Myrick WBC 8.2 103/ul Normal 4.0-11.0 [facility] Comment on above: Performed By: #### C BC #### [facility] [address] [place] [address] Dr. Claudia Myrick FREE T3on 04-08-2022 FREE T3 3.34 pg/mlL Normal 2.18-3.98 [facility] Comment on above: Performed By: #### L IPID, FT3, TSH, CMP ####[facility] [address] [address]Dr. Claudia Myrick FREE T4on 04-08-2022 Free T4 [Mass/Vol] 0.96 ng/dL Normal 0.76-1.46 [facility] Comment on above: Performed By: #### F T4 ####[facility] [address] [address]Dr. Claudia Myrick GLYCOHEMOGLOBIN A1Con 2021 ADA RECOMMENDATION SEE BELOW Normal [facility] Comment on above: Result Comment: ADA RECOMMENDED LIMIT 4.0 - 6.0 ADA THERAPEUTIC TARGET < 7.0 ACTION SUGGESTED > 7.0 Performed By: #### A 1C #### [facility] [address] [address] [address] Claudia Myrick Glucose [Mass/Vol] 108 mg/dL Normal [facility] Comment on above: Performed By: #### A 1C #### [facility] [address] [address] [address] Claudia Myrick HbA1c (Bld) [Mass fraction] 5.4 % Normal 4.5-6.2 [facility] Comment on above: Performed By: #### A 1C #### [facility] [address] [place] [address] Dr. Claudia Myrick LIPID PROFILEon 04-08-2022 CHOL-HDL RATIO NORM SEE BELOW Normal [facility] Comment on above: Result Comment: 3.3 - 4.4 LOW RISK 4.4 - 7.1 AVERAGE RISK 7.1 - 11.0 MODERATE RISK >11.0 HIGH RISK Performed By: #### L IPID, FT3, TSH, CMP ####[facility] [address] [address]DrRobert Myrick Cholesterol [Mass/Vol] 213 mg/dL Critically high <=200 [facility] Comment on above: Performed By: #### L IPID, FT3, TSH, CMP ####[facility] [address] [address]DrRobert Myrick Cholesterol in HDL [Mass/Vol] 34 mg/dL Critically low 40-60 [facility] Comment on above: Performed By: #### L IPID, FT3, TSH, CMP ####[facility] [address] [address]DrRobert Myrick Cholesterol in LDL [Mass/Vol] 135.6 mg/dL Normal [facility] Comment on above: Performed By: #### L IPID, FT3, TSH, CMP ####[facility] [address] [id number] Claudia Myrick Cholesterol.total/C holesterol in HDL [Mass ratio] 6.3 {ratio} Normal [facility] Comment on above: Performed By: #### L IPID, FT3, TSH, CMP ####[facility] [address] [id number][address] Claudia Myrick HDL NORMAL > or = 60 mg/dl - LO W CARDIOVASCULAR RISK <40 mg/dl - HIGH CARDIOVASCULAR RISK Normal [facility] Comment on above: Performed By: #### L IPID, FT3, TSH, CMP ####[facility] [address] [address]Dr. Claudia Myrick LDL CALC NORMAL SEE BELOW Normal [facility] Comment on above: Result Comment: <100 mg/dl OPTIMAL 100 - 129 mg/dl NEAR OR ABOVE OPTIMAL 130 - 159 mg/dl BORDERLINE HIGH 160 - 189 mg/dl HIGH >190 mg/dl VERY HIGH Performed By: #### L IPID, FT3, TSH, CMP ####[facility] [address] [address]Dr. Claudia Myrick Triglyceride [Mass/Vol] 217 mg/dL Critically high <=150 [facility] Comment on above: Performed By: #### L IPID, FT3, TSH, CMP ####[facility] [address] [address]Dr. Claudia Myrick VLDL CALC 43.4 mg/dL Normal [facility] Comment on above: Performed By: #### L IPID, FT3, TSH, CMP ####[facility] Hospital [address] [place] [address]Dr. Claudia Myrick PROF 14(COMP METB)on 022 Albumin [Mass/Vol] 3.6 g/dL Normal 3.4-5.0 [facility] Comment on above: Performed By: #### L IPID, FT3, TSH, CMP ####[facility] [address] [place] [address]Dr. Claudia Myrick Albumin/Globulin [Mass ratio] 1.1 {ratio} Normal [facility] Comment on above: Performed By: #### L IPID, FT3, TSH, CMP ####[facility] [address] [place] [address]Dr. Claudia Myrick ALP [Catalytic activity/Vol] 75 U/L Normal 46-116 [facility] Comment on above: Performed By: #### L IPID, FT3, TSH, CMP ####[facility] [address] [place] [address]Dr. Claudia Myrick ALT [Catalytic activity/Vol] 60 U/L Critically high 14-59 [facility] Comment on above: Performed By: #### L IPID, FT3, TSH, CMP ####[facility] [address] [place], [place] [address]Dr. Claudia Myrick Anion gap [Moles/Vol] 12.1 mmol/L Normal [facility] Comment on above: Performed By: #### L IPID, FT3, TSH, CMP ####[facility] [address] [place], [place] [address]Dr. Claudia Myrick AST [Catalytic activity/Vol] 29 U/L Normal 15-37 [facility] Comment on above: Performed By: #### L IPID, FT3, TSH, CMP ####[facility] [address] [place] [address]Dr. Claudia Myrick Bilirubin [Mass/Vol] 0.6 mg/dL Normal 0.2-1.0 [facility] Comment on above: Performed By: #### L IPID, FT3, TSH, CMP ####[facility] [address] [place] [address]Dr. Claudia Myrick Calcium [Mass/Vol] 8.9 mg/dL Normal 8.5-10.1 [facility] Comment on above: Performed By: #### L IPID, FT3, TSH, CMP ####[facility] [address] [place] [address]Dr. Sandiobey Myrick Chloride [Moles/Vol] 103 mmol/L Normal 98-107 [facility] Comment on above: Performed By: #### L IPID, FT3, TSH, CMP ####[facility] [address] [place] [address]Dr. Claudia Myrick CO2 [Moles/Vol] 27.8 mmol/L Normal 21.0-32.0 [facility] Comment on above: Performed By: #### L IPID, FT3, TSH, CMP ####[facility] [address] [place], [place] [address]Dr. Claudia Myrick Creatinine [Mass/Vol] 0.86 mg/dL Normal 0.55-1.02 [facility] Comment on above: Performed By: #### L IPID, FT3, TSH, CMP ####[facility] [address] [place], [place] [address]Dr. Claudia Myrick EGFR-AF COLOMBIAN >60 Normal >=60 [facility] Comment on above: Performed By: #### L IPID, FT3, TSH, CMP ####[facility] [address] [place], [place] [address]Dr. Claudia Myrick EGFR-NON AF COLOMBIAN >60 Normal >=60 [facility] Comment on above: Performed By: #### L IPID, FT3, TSH, CMP ####[facility] [address] [place], [place] [address]Dr. Claudia Myrick Globulin (S) [Mass/Vol] 3.2 g/dL Normal [facility] Comment on above: Performed By: #### L IPID, FT3, TSH, CMP ####[facility] [address] [place], [place] [address]Dr. Claudia Myrick Glucose [Mass/Vol] 114 mg/dL Critically high 74-106 [facility] Comment on above: Performed By: #### L IPID, FT3, TSH, CMP ####[facility] [address] [place], [place] [address]Dr. Claudia Myrick Potassium [Moles/Vol] 2.8 mmol/L Critically low 3.5-5.1 [facility] Comment on above: Result Comment: TEST REPEATED CRITICAL VALUE VERIFIED Performed By: #### L IPID, FT3, TSH, CMP ####[facility] [address] [place] [id number]. Claudia Myrick Protein [Mass/Vol] 6.8 g/dL Normal 6.4-8.2 [facility] Comment on above: Performed By: #### L IPID, FT3, TSH, CMP ####[facility] [address] [place] [id number]. Claudia Myrick Sodium [Moles/Vol] 138 mmol/L Normal 136-145 [facility] Comment on above: Performed By: #### L IPID, FT3, TSH, CMP ####[facility] [address] [place] [address]Dr. Claudia Myrick Urea nitrogen [Mass/Vol] 11.0 mg/dL Normal 7.0-18.0 [facility] Comment on above: Performed By: #### L IPID, FT3, TSH, CMP ####[facility] [address] [place] [address]Dr. Claudia Myrick Urea nitrogen/Creatinine [Mass ratio] 12.8 mg/mg Normal [facility] Comment on above: Performed By: #### L IPID, FT3, TSH, CMP ####[facility] [address] [place] [address]Dr. Claudia Myrick TSHon 04-08-2022 TSH 1.561 uIU/mL Normal 0.358-3.740 [facility] Comment on above: Performed By: #### L IPID, FT3, TSH, CMP #### [facility] [address] [address] [address] Claudia Myrick UA RANDOM W/MICROSCOPICon BACTERIA TRACE Abnormal NONE SEEN [facility] Comment on above: Performed By: #### U AMIC ####[facility] [address] [place] [address]DrRobert Myrick Bilirubin Ql (U) Negative Normal NEGATIVE [facility] Comment on above: Performed By: #### U AMIC ####[facility] [address] [place] [address]DrRobert Myrick CAST NONE SEEN Normal NONE SEEN [facility] Comment on above: Performed By: #### U AMIC ####[facility] [address] [place], [place] [address]Dr. Claudia Myrick Clarity (U) CLEAR Normal CLEAR [facility] Comment on above: Performed By: #### U AMIC ####[facility] [address] [place], [place] [address]Dr. Claudia Myrick Color (U) YELLOW Normal YELLOW [facility] Comment on above: Performed By: #### U AMIC ####[facility] [address] [place], [place] [address]Dr. Claudia Myrick Crystals LM Nom (Urine sed) NONE SEEN Normal NONE SEEN [facility] Comment on above: Performed By: #### U AMIC ####[facility] [address] [place], [place] [address]Dr. Sandiobey Myrick Epithelial cells LM Ql (Urine sed) FEW Abnormal NONE SEEN /RARE [facility] Comment on above: Performed By: #### U AMIC ####[facility] [address] [place], [place] [address]Dr. Claudia Myrick Glucose Ql (U) Negative Normal NEGATIVE [facility] Comment on above: Performed By: #### U AMIC ####[facility] [address] [place], [place] [address]Dr. Claudia Myrick Hemoglobin Ql (U) Negative Normal NEGATIVE [facility] Comment on above: Performed By: #### U AMIC ####[facility] [address] [place], [place] [address]Dr. Claudia Myrick Ketones Ql (U) Negative Normal NEGATIVE [facility] Comment on above: Performed By: #### U AMIC ####[facility] Rd[address]ajsasgo[address] [place], [place] [address]Dr. Claudia Myrick LEUKOCYTES Negative Normal NEGATIVE [facility] Comment on above: Performed By: #### U AMIC ####[facility] [address] [place], [place] [address]Dr. Sandilan Myrick MUCOUS NONE SEEN Normal NONE SEEN [facility] Comment on above: Performed By: #### U AMIC ####[facility] [address] [place] [address]Dr. Claudia Myrick Nitrite Ql (U) Negative Normal NEGATIVE [facility] Comment on above: Performed By: #### U AMIC ####[facility] [address] [place] [address]Dr. Claudia Myrick pH (U) 7.0 [pH] Normal 5-9 [facility] Comment on above: Performed By: #### U AMIC ####[facility] [address] [place], [place] [address]Dr. Claudia Myrick RBC NONE SEEN Abnormal 0-2 [facility] Comment on above: Performed By: #### U AMIC ####[facility] [address] [place] [address]Dr. Claudia Myrick SPEC GRAVITY 1.015 Normal 1.005-<=1.025 [facility] Comment on above: Performed By: #### U AMIC ####[facility] [address] [place], [place] [address]Dr. Claudia Myrick UA PROTEIN Negative Normal NEGATIVE/ TRACE [facility] Comment on above: Performed By: #### U AMIC ####[facility] [address] [place], [place] [address]Dr. Claudia Myrick Urobilinogen Qn (U) 0.2 {Brendan'U}/dL Normal 0.2 - 1. 0 [facility] Comment on above: Performed By: #### U AMIC ####[facility] [address] [place], [place] [address]Dr. Claudia Myrick WBC NONE SEEN Normal NONE SEEN [facility] Comment on above: Performed By: #### U AMIC ####[facility] [address] [place], [place] [address]Dr. Claudia Myrick XR shoulder RT min 2V*on XR shoulder RT min 2V* [facility] [employer] Other XR shoulder RT min 2V* [facility] [employer] Other XR shoulder RT min 2V* [address] [facility] [employer] Other XR shoulder RT min 2V* YAKELIN Dotson [address] [employer] Other XR shoulder RT min 2V* XRay Report [employer] Other XR shoulder RT min 2V* Signed [employer] Other XR shoulder RT min 2V* Patient: Boo Bo MR#: [id number] [employer] Other XR shoulder RT min 2V* : 1985 Acct:[id number] [employer] Other XR shoulder RT min 2V* Age/Sex: 36 / F ADM Date: 03/16/22 [employer] Other XR shoulder RT min 2V* Loc: XDUCLY Room: Type: REG CLI [employer] Other XR shoulder RT min 2V* [facility] [employer] Other XR shoulder RT min 2V* Ordering Provider: [facility]LAND [facility] [employer] Other XR shoulder RT min 2V* Date of Service: 03/16/22 [employer] Other XR shoulder RT min 2V* XR/XR shoulder RT min 2V*: Acute pain of right shoulder [employer] Other XR shoulder RT min 2V* Copies to: ANNETTE STRICKLAND [facility] [employer] Other XR shoulder RT min 2V* RIGHT SHOULDER - 3 views [employer] Other XR shoulder RT min 2V* CLINICAL HISTORY: Right shoulder pain since pushing off a couch and hearing a pop last week. Pain [employer] Other XR shoulder RT min 2V* radiates down the arm. [employer] Other XR shoulder RT min 2V* COMPARISON: None [employer] Other XR shoulder RT min 2V* AP, Y and Grashey views were obtained. There is no evidence of fracture or dislocation. Minor [employer] Other XR shoulder RT min 2V* degenerative change is present at the acromioclavicular joint and greater tuberosity. There are no [employer] Other XR shoulder RT min 2V* significant soft tissue abnormalities. [employer] Other XR shoulder RT min 2V* XR/XR shoulder RT min 2V* [employer] Other XR shoulder RT min 2V* IMPRESSION: [employer] Other XR shoulder RT min 2V* NO ACUTE BONY FINDINGS. [employer] Other XR shoulder RT min 2V* Impression dictated by: Delia Kumar M.D.03/16/2022 1:37 PM [employer] Other XR shoulder RT min 2V* Dictation Location: [place] [address] [employer] Other XR shoulder RT min 2V* Transcribed By: HARRIS 03/16/22 [facility] [employer] Other XR shoulder RT min 2V* Dictated By: Delia Kumar MD 03/16/22 [facility] [employer] Other XR shoulder RT min 2V* Signed By: [employer] Other XR shoulder RT min 2V* 03/16/22 [facility] [employer] Other COVID Quick Testingon 2020 Result Negative [employer] Other Quick Fluon 09-29-2021 FLUAV Ab CF (S) [Titer] Negative [employer] Other FLUBV Ab CF (S) [Titer] Negative [employer] Other Physician Referralon 021 Physician Referral [phone] [id number] [facility] Surgical Pathologyon 020 Surgical Pathology (NOTE) [...] stain. SURGICAL PATHOLOGY CONSULTATION [facility] [id number] Path Number: [id number] [employer] [facility] ANATOMIC PATHOLOGY [address] [place] [id number] Normal [facility] Comment on above: Performed By: #### P PPVS #### [employer] [address] [place] [address] [employer] Builder: Bobby Flanagan MD COVID-19on 09-25-2020 SARS-CoV-2 [place], [place] SARS-CoV-2 Not Detected Not Detected [place], [place] Comment on above: The specimen is NEGATIVE for SARS-CoV-2, the novel coronavirus associated with COVID-19. A negative result does not rule out COVID-19. Terrie SARS-CoV-2 for use on the Terrie [employer] is a real-time RT-PCR test intended [...] this assay. Fact sheet for Healthcare Providers: https://www.fda.gov/media/975485/download Fact sheet for Patients: https://www.fda.gov/media/779492/download METHODOLOGY: RT-PCR SARS-CoV-2, Rapid [place], [place] Source .NASOPHARYNGEAL SWAB [place], [place] COVID-19 Ambulatoryon 2019 SARS-CoV-2, ELVIN Not Detected Not Detected [place], [place] Comment on above: (NOTE) This nucleic acid amplification test was developed and its performance characteristics determined by [employer]. Nucleic acid amplification tests include PCR and [...] detected) result in this assay. Performed At: [facility] [address] [employer] [facility] [place] [id number] Latricia Barrera MD Ph:[phone] Urine Drug Screenon 07-09-20 20 Amphetamine Screen, Ur Negative NEGATIVE [facility] [place] [place] Barbiturate Screen, Ur Negative NEGATIVE [facility] [place] Benzodiazepine Screen, Urine Negative NEGATIVE [facility] [place] Buprenorphine Urine Negative NEGATIVE [facility] [place] Cannabinoid Scrn, Ur Negative NEGATIVE [facility] [place] Cocaine Metabolite, Urine Negative NEGATIVE [facility] [place] MDMA, Urine NOT REPORTED NEGATIVE [facility] [place] [place] Methadone Screen, Urine Negative NEGATIVE [facility] [place] Methamphetamine, Urine Negative NEGATIVE [facility] [place] Opiates, Urine Negative NEGATIVE [facility] [place] Oxycodone Screen, Ur Negative NEGATIVE [facility] [place] Phencyclidine, Urine Negative NEGATIVE [facility] [place] Propoxyphene, Urine Negative NEGATIVE [facility] [place] Test Information NOT REPORTED [facility] [place] Tricyclic Antidepressants, Urine Negative NEGATIVE [facility] [place] Comment on above: Drug screen results are to be used for medical purposes only. All positive results are unconfirmed. Testing for employment or legal uses should be sent to a reference laboratory for confirmation. CBC Auto Differentialon Basophils (Bld) [#/Vol] 0.04 10*3/uL [facility] [place] Basophils/100 WBC (Bld) 1 % 0 - 2 % [facility], [place] Differential Type NOT REPORTED [facility], [place] Eosinophils (Bld) [#/Vol] 0.37 10*3/uL [facility] [place] Eosinophils/100 WBC (Bld) 5 % High 1 - 4 % [facility] [place] Erythrocyte distribution width (RBC) [Ratio] 12.6 % 11.8 - 14.4 % [facility], [place] Hematocrit (Bld) [Volume fraction] 42.8 % 36.3 - 47.1 % [facility] Hemoglobin (Bld) [Mass/Vol] 14.2 g/dL 11.9 - 15.1 g/dL [place] Immature granulocytes (Bld) [#/Vol] 0 % 0 [place] Immature granulocytes (Bld) [#/Vol] 10*3/uL [place] Interpretation and review of laboratory results Abnormal [place] Lymphocytes (Bld) [#/Vol] 1.80 10*3/uL [place] Lymphocytes/100 WBC (Bld) 25 % 24 - 43 % [place] MCH (RBC) [Entitic mass] 30.7 pg 25.2 - 33.5 pg [place] MCHC (RBC) [Mass/Vol] 33.2 g/dL 28.4 - 34.8 g/dL [place] MCV (RBC) [Entitic vol] 92.4 fL 82.6 - 102.9 fL [place] Monocytes (Bld) [#/Vol] 0.61 10*3/uL [place] Monocytes/100 WBC (Bld) 8 % 3 - 12 % [place] Platelet mean volume (Bld) [Entitic vol] 11.2 fL 8.1 - 13.5 fL [place] Platelets (Bld) [#/Vol] 201 10*3/uL [place] Platelets (Bld) [#/Vol] NOT REPORTED [place] RBC (Bld) [#/Vol] 4.63 10*6/uL 3.95 - 5.1 1 m/uL [place] RBC morphology finding Nom (Bld) NOT REPORTED [place] Segmented neutrophils/100 WBC (Bld) 61 % 36 - 65 % [place] Segs Absolute 4.41 [place] WBC (Bld) [#/Vol] 0.0 10*3/uL 0.0 per 10 0 WBC [place] WBC (Bld) [#/Vol] 7.3 10*3/uL [place] WBC Morphology NOT REPORTED [place], [place] Comprehensive Metabolic Pane gisela 04-18-2020 Albumin [Mass/Vol] 4.4 g/dL 3.5 - 5.2 g/dL [place] Albumin/Globulin [Mass ratio] 1.7 {ratio} [place] ALP [Catalytic activity/Vol] 68 U/L 35 - 104 U/L [place] ALT [Catalytic activity/Vol] 35 U/L High 5 - 33 U/L [place] Anion gap [Moles/Vol] 13 mmol/L 9 - 17 mmol/L [place] AST [Catalytic activity/Vol] 24 U/L <32 [place] Bilirubin Ql (U) 0.51 mg/dL 0.3 - 1.2 mg/dL [place] Bun/Cre Ratio 18 [place], [place] Calcium [Mass/Vol] 9.4 mg/dL 8.6 - 10. 4 mg/dL [place] Chloride [Moles/Vol] 100 mmol/L 98 - 107 mmol/L [place] CO2 [Moles/Vol] 27 mmol/L 20 - 31 mmol/L [place] Creatinine [Mass/Vol] 0.83 mg/dL 0.5 - 0.9 mg/dL [place] GFR >60 >60 mL/min [place] GFR Non- >60 >60 mL/min [place] Glucose [Mass/Vol] 117 mg/dL High 70 - 99 mg/dL [place], [place] Potassium [Moles/Vol] 3.5 mmol/L Low 3.7 - 5.3 mmol/L [place] Protein [Mass/Vol] 7.0 g/dL 6.4 - 8.3 g/dL [place] Sodium [Moles/Vol] 140 mmol/L 135 - 144 mmol/L [place] Urea nitrogen [Mass/Vol] 15 mg/dL 6 - 20 mg/dL [place] Ferritinon 04-18-2020 Ferritin [Mass/Vol] 59 ug/L 13 - 150 ug/L [place] Hemoglobin A1Con 04-18-2020 Glucose [Mass/Vol] 105 mg/dL [place] Comment on above: The ADA and AACC rec ommend providing the estimated average glucose result to permit better patient understanding of their HBA1c result. HbA1c (Bld) [Mass fraction] 5.3 % 4.8 - 5.9 % [place] Iron and TIBCon 04-18-2020 Iron [Mass/Vol] 104 ug/dL 37 - 145 ug/dL [place] Iron Saturation 33 % 20 - 55 % [place] TIBC 312 ug/dL 250 - 450 ug/dL [place] UIBC 208 ug/dL 112 - 347 ug/dL [place] Lipid Panelon 04-18-2020 Cholesterol [Mass/Vol] 207 mg/dL High <200 [place] Comment on above: Cholesterol Guidelines: <200 Desirable 200-240 Borderline >240 Undesirable Cholesterol in HDL [Mass/Vol] 33 mg/dL Low >40 [place] Comment on above: HDL Guidelines: <40 Undesirable 40-59 Borderline >59 Desirable Cholesterol in LDL [Mass/Vol] 119 mg/dL 0 - 130 mg/dL [place] Comment on above: LDL Guidelines: <100 Desirable 100-129 Near to/above Desirable 130-159 Borderline >159 Undesirable Direct (measured) LDL and calculated LDL are not interchangeable tests. Cholesterol in VLDL [Mass/Vol] NOT REPORTED High 1 - 30 mg/dL [place] Cholesterol.total/C holesterol in HDL [Mass ratio] 6.3 {ratio} High <5 [place] Triglyceride [Mass/Vol] 273 mg/dL High <150 [place] Comment on above: Triglyceride Guidelines: <150 Desirable 150-199 Borderline 200-499 High >499 Very high Based on AHA Guidelines for fasting triglyceride, July 2012. Magnesiumon 04-18-2020 Magnesium [Mass/Vol] 2.1 mg/dL 1.6 - 2.6 mg/dL [place] Metabolic Panelon 04-18-2020 GFR/1.73 sq M predicted among non-blacks MDRD (S/P/Bld) [Vol rate/Area] [place] Comment on above: Average GFR for 30-3 9 years old: 107 mL/min/1.73sq m Chronic Kidney Disease: <60 mL/min/1.73sq m Kidney failure: <15 mL/min/1.73sq m eGFR calculated using average adult body mass. Additional eGFR calculator available at: http://www.[employer]/multiple_crcl_2012.htm Stage 1: Some kidney damage normal GFR Stage 2: Mild kidney damage GFR 60-89 Stage 3: Moderate kidney damage GFR 30-59 Stage 4: Severe kidney damage GFR 15-29 Stage 5: Severe kidney damage GFR <15 ESRD - chronic treatment by dialysis or transplant Otheron 04-18-2020 Interpretation and review of laboratory results Abnormal [place] PTH, Intacton 04-18-2020 Pth Intact 54.97 pg/mL 15 - 65 pg/mL [place] Comment on above: SAMPLES FROM PATIENT S ROUTINELY RECEIVING HIGH DOSE BIOTIN THERAPY MAY SHOW FALSELY DEPRESSED RESULTS. ADDITIONAL INFORMATION MAY BE REQUIRED FOR DIAGNOSIS. T4, Freeon 04-18-2020 Interpretation and review of laboratory results Abnormal [place] Thyroxine, Free 0.90 ng/dL Low 0.93 - 1.7 ng/dL [place] TSH without Reflexon 020 TSH Qn 1.74 m[IU]/L [place], [place] Vitamin B12 & Folateon 04-18 Cobalamin (Vitamin B12) [Mass/Vol] 324 pg/mL 232 - 1245 pg/mL [place] Folate 14.3 ng/mL >4.8 [place] Vitamin D 25 Hydroxyon 04-18 Interpretation and review of laboratory results Abnormal [place] Vit D, 25-Hydroxy 22.6 ng/mL Low 30 - 100 ng/mL [place] Comment on above: Reference Range: Vitamin D status Range Deficiency <20 ng/mL Mild Deficiency 20-30 ng/mL Sufficiency 30-100 ng/mL Toxicity >100 ng/mL Basic Metabolic Panelon 03-0 Anion gap molar conc 13 mmol/L Normal 10-20 [facility] Comment on above: Performed By: #### 1 [id number] #### [facility] [address] [place] [address] Calcium mass conc 9.6 mg/dL Normal 8.6-10.3 [facility] Comment on above: Performed By: #### 1 [id number] #### [facility] [address] [place] [address] Chloride molar conc 104 mmol/L Normal 98-107 [facility] Comment on above: Performed By: #### 1 [id number] #### [facility] [address] [place] [address] Creatinine mass conc 0.83 mg/dL Normal 0.50-1.05 [facility] Comment on above: Performed By: #### 1 [id number] #### [facility] [address] [place] [address] GFR/1.73 sq M.predicted MDRD vol rate/area mL/min/{1.73_m2} Normal [facility] Comment on above: Result Comment: Inte rpretation for Chronic Kidney Disease: Stages 1&2 >60 Healthy or potential kidney damage. Mild decrease of GFR. Stage 3 30-59 Moderate decrease of GFR. Stage 4 15-29 Severe decrease of GFR. Stage 5 <15 Kidney failure or on dialysis. Performed By: #### 1 [id number] #### [facility] [address] [place] [address] Glucose mass conc 74 mg/dL Normal 70-100 [facility] Comment on above: Performed By: #### 1 [id number] #### [facility] [address] [place] [address] HCO3 molar conc (Bld) 26 mmol/L Normal 21-32 [facility] Comment on above: Performed By: #### 1 [id number] #### [facility] [address] [place] [address] Potassium molar conc 3.6 mmol/L Normal 3.5-5.1 [facility] Comment on above: Performed By: #### 1 [id number] #### [facility] [address] [place] [address] Sodium molar conc 139 mmol/L Normal 136-145 [facility] Comment on above: Performed By: #### 1 [id number] #### [facility] [address] [place] [address] Urea nitrogen mass conc 13 mg/dL Normal 6-23 [facility] Comment on above: Performed By: #### 1 [id number] #### [facility] [address] [place] [address] Urea nitrogen/Creatinine mass ratio 16 mg/mg Normal 5-25 [facility] Comment on above: Performed By: #### 1 [id number] #### [facility] [address] [place] [address] CBCon 12-15-2018 Erythrocyte distribution width Ratio (RBC) 12.6 % Normal 12.0-15.4 [facility] Comment on above: Performed By: #### 2 [id number] #### [facility] [address] [place] [address] Hematocrit Volume Fraction (Bld) 43.4 % Normal 36.5-46.6 [facility] Comment on above: Performed By: #### 2 [id number] #### [facility] [address] [place] [address] Hemoglobin mass conc (Bld) 14.2 g/dL Normal 11.8-15.3 [facility] Comment on above: Performed By: #### 2 [id number] #### [facility] [address] [place] [place] [address] MCH Entitic mass (RBC) 30.3 pg Normal 27.5-33.0 [facility] Healthcare Comment on above: Performed By: #### 2 [id number] #### [facility] [address] [place] [address] MCHC mass conc (RBC) 32.7 g/dL Normal 30.1-35.0 [facility] Healthcare Comment on above: Performed By: #### 2 [id number] #### [facility] [address] [place] [address] MCV Entitic volume (RBC) 92.5 fL Normal 85.4-100.0 [facility] Healthcare Comment on above: Performed By: #### 2 [id number] #### [facility] [address] [place] [address] NRBC Absolute 0.00 10*3/uL Normal [facility] Comment on above: Performed By: #### 2 [id number] #### [facility] [address] [place] [address] NRBC Automated 0.0 /100{WBCs} Normal [facility] Comment on above: Performed By: #### 2 [id number] #### [facility] [address] [place] [address] Platelet mean volume Entitic volume (Bld) 10.9 fL Normal 9.9-12.1 [facility] Comment on above: Performed By: #### 2 [id number] #### [facility] [address] [place] [address] 244[address] Platelets #/vol (Bld) 199 10*3/uL Normal 155-404 [facility] Comment on above: Performed By: #### 2 [id number] #### [facility] [address] [place] [address] RBC #/vol (Bld) 4.69 10*6/uL Normal 3.85-5.10 [facility] Comment on above: Performed By: #### 2 [id number] #### [facility] [address] [place] [address] RDW SD 42.5 fL Normal 39.3-48.6 [facility] Comment on above: Performed By: #### 2 [id number] #### [facility] [address] [place] [address] WBC #/vol (Bld) 8.4 10*3/uL Normal 4.4-9.9 [facility] Comment on above: Performed By: #### 2 [id number] #### [facility] [address] [place] [address] Test (Serum)on Test, Serum Negative Normal [facility] Comment on above: Performed By: #### 3 [id number] #### [facility] [address] [place] [address] CBC With Differentialon 07-2 5-2018 Basophils #/vol (Bld) 0.05 10*3/uL Normal 0.01-0.07 [facility] Comment on above: Performed By: #### 2 [id number] #### [facility] [address] [place] [address] Basophils/100 WBC (Bld) 0.5 % Normal 0.1-1.2 [facility] Comment on above: Performed By: #### 2 [id number] #### [facility] [address] [place] [address] Eosinophils #/vol (Bld) 0.38 10*3/uL Normal 0.04-0.50 [facility] Comment on above: Performed By: #### 2 [id number] #### [facility] [address] [place] [address] Eosinophils/100 WBC (Bld) 3.7 % Normal 0.0-8.1 [facility] Healthcare Comment on above: Performed By: #### 2 [id number] #### [facility] [address] [place] [address] Erythrocyte distribution width Ratio (RBC) 12.3 % Normal 12.0-15.4 [facility] Healthcare Comment on above: Performed By: #### 2 [id number] #### [facility] [address] [place] [address] Hematocrit Volume Fraction (Bld) 44.6 % Normal 36.5-46.6 [facility] Healthcare Comment on above: Performed By: #### 2 [id number] #### [facility] [address] [place] [address] Hemoglobin mass conc (Bld) 14.8 g/dL Normal 11.8-15.3 [facility] Comment on above: Performed By: #### 2 [id number] #### [facility] [address] [place] [address] Imm Grans Absolute 0.03 10*3/uL Normal 0.00-0.21 [facility] Comment on above: Performed By: #### 2 [id number] #### [facility] [address] [place] [address] Immature granulocytes #/vol (Bld) 0.3 % Normal [facility] Comment on above: Performed By: #### 2 [id number] #### [facility] [address] [place] [address] Lymphocytes #/vol (Bld) 2.31 10*3/uL Normal 0.40-2.84 [facility] Comment on above: Performed By: #### 2 [id number] #### [facility] [address] [place] [address] Lymphocytes/100 WBC (Bld) 22.6 % Normal 15.7-50.5 [facility] Comment on above: Performed By: #### 2 [id number] #### [facility] [address] [place] [address] MCH Entitic mass (RBC) 31.1 pg Normal 27.5-33.0 [facility] Comment on above: Performed By: #### 2 [id number] #### [facility] [address] [place] [address] MCHC mass conc (RBC) 33.2 g/dL Normal 30.1-35.0 [facility] Comment on above: Performed By: #### 2 [id number] #### [facility] [address] [place] [address] MCV Entitic volume (RBC) 93.7 fL Normal 85.4-100.0 [facility] Comment on above: Performed By: #### 2 [id number] #### [facility] [address] [place] [address] Monocytes #/vol (Bld) 0.63 10*3/uL Normal 0.25-0.83 [facility] Comment on above: Performed By: #### 2 [id number] #### [facility] [address] [place] [address] Monocytes/100 WBC (Bld) 6.2 % Normal 4.8-12.7 [facility] Comment on above: Performed By: #### 2 [id number] #### [facility] [address] [place] [address] Neutrophils Absolute 6.84 10*3/uL Normal 1.95-6.85 [facility] Comment on above: Performed By: #### 2 [id number] #### [facility] [address] [place] [address] Neutrophils/100 WBC (Bld) 66.7 % Normal 36.8-73.2 [facility] Healthcare Comment on above: Performed By: #### 2 [id number] #### [facility] [address] [place] [address] NRBC Absolute 0.00 10*3/uL Normal [facility] Comment on above: Performed By: #### 2 647139 #### [facility] [address] [place] [address] NRBC Automated 0.0 /100{WBCs} Normal [facility] Comment on above: Performed By: #### 2 [id number] #### [facility] [address] [place] [address] Platelet mean volume Entitic volume (Bld) 11.6 fL Normal 9.9-12.1 [facility] Healthcare Comment on above: Performed By: #### 2 [id number] #### [facility] [address] [place] [address] Platelets #/vol (Bld) 184 10*3/uL Normal 155-404 [facility] Healthcare Comment on above: Performed By: #### 2 [id number] #### [facility] [address] [place] [address] RBC #/vol (Bld) 4.76 10*6/uL Normal 3.85-5.10 [facility] Comment on above: Performed By: #### 2 [id number] #### [facility] [address] [place] [address] RDW SD 42.5 fL Normal 39.3-48.6 [facility] Healthcare Comment on above: Performed By: #### 2 [id number] #### [facility] [address] [place] [address] WBC #/vol (Bld) 10.2 10*3/uL High 4.4-9.9 [facility] Comment on above: Performed By: #### 2 [id number] #### [facility] [address] [place] [address] Comprehensive Metabolic Pane gisela 05-05-2018 Albumin mass conc 4.5 g/dL Normal 3.4-5.0 [facility] Comment on above: Performed By: #### 1 [id number] #### [facility] [address] [place] [address] Albumin/Globulin mass ratio 1.7 {ratio} Normal 0.9-2.4 [facility] Comment on above: Performed By: #### 1 412381 #### [facility] [address] [place] [address] ALP enzyme act/vol 80 U/L Normal 45-117 [facility] Comment on above: Performed By: #### 1 [id number] #### [facility] [address] [place] [address] ALT enzyme act/vol 37 U/L Normal 7-45 [facility] Comment on above: Performed By: #### 1 [id number] #### [facility] [address] [place] [address] Anion gap molar conc 13 mmol/L Normal 10-20 [facility] Comment on above: Performed By: #### 1 [id number] #### [facility] [address] [place] [address] AST enzyme act/vol 26 U/L Normal 13-39 [facility] Comment on above: Performed By: #### 1 490393 #### [facility] [address] [place] [address] Bilirubin mass conc 0.6 mg/dL Normal 0.0-1.2 [facility] Comment on above: Performed By: #### 1 178002 #### [facility] [address] [place] [address] Calcium mass conc 9.6 mg/dL Normal 8.6-10.3 [facility] Comment on above: Performed By: #### 1 [id number] #### [facility] [address] [place] [address] Chloride molar conc 105 mmol/L Normal 98-107 [facility] Comment on above: Performed By: #### 1 [id number] #### [facility] [address] [place] [address] Creatinine mass conc 0.95 mg/dL Normal 0.50-1.05 [facility] Comment on above: Performed By: #### 1 [id number] #### [facility] [address] [place] [address] GFR/1.73 sq M.predicted MDRD vol rate/area mL/min/{1.73_m2} Normal [facility] Comment on above: Result Comment: Inte rpretation for Chronic Kidney Disease: Stages 1&2 >60 Healthy or potential kidney damage. Mild decrease of GFR. Stage 3 30-59 Moderate decrease of GFR. Stage 4 15-29 Severe decrease of GFR. Stage 5 <15 Kidney failure or on dialysis. Performed By: #### 1 [id number] #### [facility] [address] [place] [address] Glucose mass conc 78 mg/dL Normal 70-100 [facility] Comment on above: Performed By: #### 1 [id number] #### [facility] [address] [place] [address] HCO3 molar conc (Bld) 26 mmol/L Normal 21-32 [facility] Comment on above: Performed By: #### 1 [id number] #### [facility] [address] [place] [address] Potassium molar conc 3.6 mmol/L Normal 3.5-5.1 [facility] Comment on above: Performed By: #### 1 [id number] #### [facility] [address] [place] [address] Protein mass conc 7.1 g/dL Normal 6.4-8.2 [facility] Comment on above: Performed By: #### 1 [id number] #### [facility] [address] [place] [address] Sodium molar conc 140 mmol/L Normal 136-145 [facility] Comment on above: Performed By: #### 1 [id number] #### [facility] [address] [place] [address] Urea nitrogen mass conc 10 mg/dL Normal 6-23 [facility] Comment on above: Performed By: #### 1 [id number] #### [facility] [address] [place] [address] Urea nitrogen/Creatinine mass ratio 11 mg/mg Normal 5-25 [facility] Comment on above: Performed By: #### 1 [id number] #### [facility] [address] [place] [address] ESR, Westergrenon 05-05-2018 ESR, Westergren 2 mm/h Normal 0-20 [facility] Comment on above: Performed By: #### 2 [id number] #### [facility] [address] [place] [address] Lipid Panelon 05-05-2018 Cholesterol in HDL mass conc 35 mg/dL Abnormal [facility] Comment on above: Result Comment: Age Normal Mod Risk High Risk 5-9 >46 38-46 <38 10-14 >44 40-44 <40 15-19 >42 38-42 <38 Adult >49 Performed By: #### 1 [id number] #### [facility] [address] [place] [address] Cholesterol in LDL mass conc 100 mg/dL Normal <130 [facility] Comment on above: Performed By: #### 1 [id number] #### [facility] [address] [place] [address] Cholesterol in VLDL mass conc 72 mg/dL Abnormal <30 [facility] Comment on above: Performed By: #### 1 [id number] #### [facility] [address] [place] [address] Cholesterol mass conc 207 mg/dL Abnormal <200 [facility] Comment on above: Performed By: #### 1 [id number] #### [facility] [address] [place] [address] Cholesterol.total/C holesterol in HDL mass ratio 5.9 {ratio} Normal [facility] Comment on above: Performed By: #### 1 [id number] #### [facility] [address] [place] [address] Triglyceride mass conc 361 mg/dL Abnormal <150 [facility] Healthcare Comment on above: Result Comment: 150- 199 Borderline High 200-499 High >500 Very High Performed By: #### 1 [id number] #### [facility] [address] [place] [address] TSHon 05-05-2018 Thyrotropin Qn 1.75 mU/L Normal 0.44-3.98 [facility] Health care Comment on above: Performed By: #### 1 [id number] #### [facility] [address] [place] [address] 13485 Vitamin D, 25 Hydroxyon 04-12 Vitamin D, 25 Hydroxy 23 ng/mL Abnormal [facility] Comment on above: Result Comment: DEFI CIENCY <20 INSUFFICIENCY 20-29 OPTIMUM LEVEL 30-80 POSSIBLE TOXICITY >80 Performed By: #### V ITD #### [facility] [address] [place] [address] SPINE CERVICAL MIN 4 VIEWSon 05-03-2018 SPINE CERVICAL MIN 4 VIEWS DATE OF EXAM: May 03 2018 12:05PM CLINICAL HISTORY/ Patient Name: BOO BO STUDY: SPINE CERVICAL MIN 4 VIEWS; 05/03/2018 12:05 pm INDICATION: NECK PAIN. COMPARISON: None. ACCESSION NUMBER(S): [id number] ORDERING CLINICIAN: NATE HERRON FINDINGS: The vertebral alignment is maintained and the vertebra are normal in height. The discs are maintained in height. The prevertebral soft tissues are not thickened. The posterior elements are intact. CONCLUSION: IMPRESSION: Negative Normal [facility] Vital Signs Date Time Vital Sign Value Performing Clinician Facility 12-04-2022 09:10-0500 Body height 170.18 cm Annette Strickland Other [facility] Other 12-04-2022 09:10-0500 Body mass index (BMI) [Ratio] 46.98 kg/m2 Annette Strickland Other [facility] Other 02-23-2023 09:10-0500 Body temperature 98.7 [degF] Annette Strickland Other [facility] Other 12-04-2022 09:10-0500 Body weight 136.08 kg Annette Strickland Other [facility] Other 12-04-2022 09:10-0500 Diastolic blood pressure 78 mm[Hg] Annette Strickland Other [facility] Other 12-04-2022 09:10-0500 Respiratory rate 18 /min Annette Strickland Other [facility] Other 12-04-2022 09:10-0500 SaO2% (BldA) [Mass fraction] 97 % Annette Strickland Other [facility] Other 12-04-2022 09:10-0500 Systolic blood pressure 127 mm[Hg] Annette Strickland Other [facility] Other 08-06-2022 10:05-0400 Body height 170.18 cm Liliana Shelbie Other [facility] Other 08-06-2022 10:05-0400 Body mass index (BMI) [Ratio] 46.98 kg/m2 Liliana Shelbie Other [facility] Other 08-06-2022 10:05-0400 Body temperature 97.8 [degF] Liliana Shelbie Other [facility] Other 08-06-2022 10:05-0400 Body weight 136.08 kg Liliana Morfin Other [facility] Other 08-06-2022 10:05-0400 Diastolic blood pressure 89 mm[Hg] Liliana Morfin Other [facility] Other 08-06-2022 10:05-0400 Respiratory rate 18 /min Liliana Morfin Other [facility] Other 08-06-2022 10:05-0400 SaO2% (BldA) [Mass fraction] 97 % Liliana Morfin Other [facility] Other 08-06-2022 10:05-0400 Systolic blood pressure 146 mm[Hg] Liliana Morfin Other [facility] Other 03-16-2022 14:15-0400 Body height 170.18 cm Annette Navarroault Other [facility] Other 03-16-2022 14:15-0400 Body mass index (BMI) [Ratio] 47.29 kg/m2 Annette Navarroault Other [facility] Other 03-16-2022 14:15-0400 Body temperature 97.7 [degF] Annette Homer Other [facility] Other 03-16-2022 14:15-0400 Body weight 136.99 kg Annette Navarroault Other [facility] Other 03-16-2022 14:15-0400 Diastolic blood pressure 85 mm[Hg] Annette Homer Other [facility] Other 03-16-2022 14:15-0400 Respiratory rate 18 /min Annette Homer Other [facility] Other 03-16-2022 14:15-0400 SaO2% (BldA) [Mass fraction] 99 % Annette Strickland Other [facility] Other 03-16-2022 14:15-0400 Systolic blood pressure 136 mm[Hg] Annette Strickland Other [facility] Other 09-29-2021 10:45-0500 Body height 170.18 cm Annette Strickland Other [facility] Other 09-29-2021 10:45-0500 Body mass index (BMI) [Ratio] 46.82 kg/m2 Annette Strickland Other [facility] Other 09-29-2021 10:45-0500 Body temperature 98.9 [degF] Annette Strickland Other [facility] Other 09-29-2021 10:45-0500 Body weight 135.63 kg Annette Strickland Other [facility] Other 09-29-2021 10:45-0500 Respiratory rate 18 /min Annette Strickland Other [facility] Other 09-29-2021 10:45-0500 SaO2% (BldA) [Mass fraction] 97 % Annette Strickland Other [facility] Other 09-15-2021 12:10-0500 Body height 170.18 cm Linda Baires Other [facility] Other 09-15-2021 12:10-0500 Body mass index (BMI) [Ratio] 47.14 kg/m2 Linda Ginty Other [facility] Other 09-15-2021 12:10-0500 Body temperature 98.1 [degF] Linda Ginty Other [facility] Other 09-15-2021 12:10-0500 Body weight 136.53 kg Linda Ginty Other [facility] Other 09-15-2021 12:10-0500 Diastolic blood pressure 68 mm[Hg] Linda Ginty Other [facility] Other 09-15-2021 12:10-0500 Respiratory rate 18 /min Linda Ginty Other [facility] Other 09-15-2021 12:10-0500 SaO2% (BldA) [Mass fraction] 98 % Linda Ginty Other [facility] Other 09-15-2021 12:10-0500 Systolic blood pressure 138 mm[Hg] Linda Ginty Other [facility] Other 09-28-2020 10:15-0500 BP Diastolic 86 mm[Hg] Fortunato Uriostegui [facility] [place] 09-28-2020 10:15-0500 BP Systolic 125 mm[Hg] Fortunato Uriostegui [facility] [place] 09-28-2020 10:15-0500 Pulse (Heart Rate) 72 /min [facility] [place] 09-28-2020 10:15-0500 Respiratory Rate 16 /min [facility] 09-28-2020 09:59-0500 Body Temperature 97.5 [degF] [facility] 09-28-2020 09:59-0500 Pulse Oximetry 96 % [facility] JEROMY 09-28-2020 08:10-0500 BMI (Body Mass Index) 49.72 kg/m2 [facility] 09-28-2020 08:10-0500 Body weight 144 kg [facility] 09-28-2020 08:10-0500 Height 170.2 cm [facility] En[facility] Encounter Date Encounter Type Care Provider Facility Start: 03-09-2024 End: 03-10-2024 ambulatory [facility] Start: 02-29-2024 End: 02-29-2024 ambulatory WILL LUKE Not Available Start: 02-29-2024 End: 02-29-2024 ambulatory MD Kota Reina Work Phone: [facility] Work Phone: Start: 02-29-2024 End: 02-29-2024 Departed Referred MD Kota Reina Work Phone: [facility] Start: 02-05-2024 End: 02-06-2024 ambulatory LAKEISHA ALAN [facility] Start: 01-26-2024 End: 01-27-2024 ambulatory FORTUNATO Kirkpatrick [facility] Start: 01-11-2024 End: 01-11-2024 ambulatory ROLANDLOST CREEKNicholas [facility] Start: 01-05-2024 End: 01-05-2024 ambulatory LAKEISHA AICHHOLZ Not Available Start: 12-29-2023 End: 12-29-2023 ambulatory WILL LUKE Not Available Start: 12-03-2023 End: 12-03-2023 ambulatory LAKEISHA AICHHOLZ Not Available Start: 10-01-2023 End: 10-01-2023 ambulatory LAKEISHA AICHHOLZ Not Available Start: 01-22-2023 End: 01-23-2023 ambulatory OVEN DUMPER LAKEISHA AICHHOLZ Facility: Start: 12-18-2022 End: 12-19-2022 ambulatory OVEN DUMPER LAKEISHA AICHHOLZ Facility:[facility] Start: 12-04-2022 End: 12-04-2022 ambulatory Annette Homer Other [facility] Other Start: 12-04-2022 Office outpatient vi sit 25 minutes Annette Homer [facility] Start: 10-28-2022 End: 10-29-2022 ambulatory OVEN DUMPER LAKEISHA ALAN Facility:[facility] Start: 08-06-2022 End: 08-06-2022 ambulatory Liliana Jollymond Other [facility] Other Start: 08-06-2022 Office outpatient vi sit 15 minutes Liliana Shelbie [facility] Start: 07-18-2022 End: 07-19-2022 ambulatory OVEN DUMPER LAKEISHA ALAN Facility:[facility] Start: 07-14-2022 End: 07-15-2022 ambulatory OVEN DUMPER LAKEISHA ALAN Facility:[facility] Start: 05-07-2022 End: 05-08-2022 ambulatory OVEN DUMPER LAKEISHA DAYANNA Facility:[facility] Start: 04-23-2022 End: 04-24-2022 ambulatory OVEN DUMPER LAKEISHA ALAN Facility:[facility] Start: 04-11-2022 Encounter for genera l adult medical examination without abnormal findings ALICIA ALAN [facility] Start: 04-08-2022 End: 04-09-2022 ambulatory ALICIA ALAN Facility:[facility] Start: 04-08-2022 End: 04-09-2022 Encounter for general adult medical examination without abnormal findings ALICIA ALAN Facility:[facility] Start: 03-16-2022 End: 03-16-2022 ambulatory Annette Homer Other [facility] Other Start: 03-16-2022 Office outpatient vi sit 15 minutes Annette Homer [facility] Start: 03-15-2022 End: 03-16-2022 ambulatory OVEN DUMPER LAKEISHA DAYANNA Facility:[facility] Start: 09-29-2021 End: 09-29-2021 ambulatory Annette Homer Other [facility] Other Start: 09-29-2021 Office outpatient vi sit 15 minutes Annette Strickland [facility] Start: 09-15-2021 End: 09-15-2021 ambulatory Linda Ginty Other [facility] Other Start: 09-15-2021 Office outpatient vi sit 25 minutes Linda Ginty [facility] Start: 09-28-2020 End: 09-28-2020 Patient encounter procedure FORTUNATO URIOSTEGUI [facility] Start: 09-28-2020 End: 09-28-2020 Subsequent hospital visit by physician Fortunato Uriostegui [facility] Start: 09-24-2020 End: 09-28-2020 Subsequent hospital visit by physician Kristian Armstrong19 Pat Screening Schedule [facility] PRE ADMIT Comment on above: Preoperative testing Start: 07-09-2020 End: 07-13-2020 Subsequent hospital visit by physician [facility] Covid19 Pat Screening Schedule [facility] Laboratory Comment on above: Current nicotine use ; Essential hypertension; QUITA (obstructive sleep apnea); Arthritis; Anxiety and depression; Gastroesophageal reflux disease without esophagitis; Obesity, Class III, BMI 40-49.9 (morbid obesity) (HCC); Fibromyalgia Preop testing Start: 04-18-2020 End: 04-18-2020 Subsequent hospital visit by physician [facility] Lab Drawing Room [facility] Laboratory Comment on above: Essential hypertensi on; QUITA (obstructive sleep apnea); Arthritis; Anxiety and depression; Gastroesophageal reflux disease without esophagitis; Obesity, Class III, BMI 40-49.9 (morbid obesity) (HCC); Fibromyalgia; Obstructive sleep apnea; Morbid obesity with BMI of 45.0-49.9, adult (HCC) Start: 12-17-2018 End: 12-17-2018 Patient encounter procedure LETICIA RILEY Facility:[facility] Start: 12-15-2018 Patient encounter procedure LETICIA RILEY Facility:7 Start: 06-01-2018 Patient encounter procedure NATE HERRON Facility:[facility] Start: 05-05-2018 Patient encounter procedure NATE HERRON Facility:[id number] Start: 05-03-2018 Patient encounter procedure NATE LAWTONANDRAN Facility:1527 Start: 05-03-2018 Patient encounter Sam Momin [...] VITAL SIGNS FORTUNATO PERERA Start: 09-24-2020 COVID-19 Handy Laura rubio Work Phone: Start: 07-09-2020 Drug screen class list a Maya Higginbotham Jose Work Phone: Start: 07-09-2020 COVID-19 AMBULATORY Bec ky Dawn Start: 04-18-2020 VITAMIN B12 & FOLATE Gr [...] Author Start: 04-18-2021 Creatinine measurement Creatinine monitoring [facility] [place] Start: 04-18-2021 Potassium monitoring Potassium monitoring [facility] Start: 11-21-2020 End: 11-21-2020 Office Visit 11/21/2020 [facility] Visit [facility] [address] [facility] [address] [place] [id number] [facility] Start: 10-24-2020 End: 10-24-2020 Office Visit 10/24/2020 Office Visit BariatricMaya Padilla NUCLEAR RADIATION ENGINEER - OVEN DUMPER [address] [place] [phone] [facility] Start: 08-22-2020 End: 08-22-2020 Office Visit 08/22/2020 Office Visit Maya Lawrence NUCLEAR RADIATION ENGINEER - OVEN DUMPER [address] [place] [phone] [facility] Start: 08-16-2020 End: 08-16-2020 Nurse Only 08/16/2020 Nurse Only Bariatrics [facility] Invasive Bariatric Surg Start: 07-25-2020 End: 07-25-2020 Office Visit 07/25/2020 Office Visit BariatricMaya Padilla NUCLEAR RADIATION ENGINEER - OVEN DUMPER [address] [place] [phone] [facility] Start: 07-13-2020 End: 07-13-2020 Hospital Encounter [facility] Comment on above: EGD ESOPHAGOGASTRODUODENOSCOPY Start: 07-12-2020 End: 07-12-2020 Nurse Only 07/12/2020 Nurse Only Bariatrics Kaya Kitchen Invasive Bariatric Surg Start: 06-20-2020 End: 06-20-2020 Office Visit 06/20/2020 Office Visit Bariatrics Maya Garcia, NUCLEAR RADIATION ENGINEER - OVEN DUMPER [address] [place] [phone] [facility] Start: 06-12-2020 Influenza vaccination Flu vaccine (#1) [place], [place] Start: 05-23-2020 End: 05-23-2020 Office Visit 05/23/2020 Office Visit Bariatrics Fortunato Uriostegui, DO [address] [facility] [address] [place] [address] [facility] Start: 2008 Screening for malignant neoplasm of cervix Cervical cancer screen [place], [place] Start: 2006 DTaP/Tdap/Td vaccine (1 - Tdap) DTaP/Tdap/Td vaccine (1 - Tdap) [place], [place] Start: 2002 HIV screening HIV screen [place], [place] Start: 1993 Pneumococcal 0-64 years Vaccine (1 of 1 - PPSV23) Pneumococcal 0-64 years Vaccine (1 of 1 - PPSV23) [place], [place] Start: 1988 Varicella vaccine (1 of 2 - 2-dose childhood series) Varicella vaccine (1 of 2 - 2-dose childhood series) [place] Start: 1987 Creatinine measurement Creatinine monitoring [place] Start: 1987 Potassium monitoring Potassium monitoring [place] End: 04-18-2020 Nicotine, Blood Nicotine, Blood Lab Routine Essential hypertension QUITA (obstructive sleep apnea) Arthritis Anxiety and depression Gastroesophageal reflux disease without esophagitis Obesity, Class III, BMI 40-49.9 (morbid obesity) ([facility]) Fibromyalgia 1 Occurrences starting 04/18/2020 until 04/18/2020 [place] Comment on above: 1 Occurrences starting 04/18/2020 until 04/18/2020 Nicotine, Blood [place], [place] End: 07-09-2020 Nicotine, Blood Nicotine, Blood Lab Routine Current nicotine use 1 Occurrences starting 07/09/2020 until 07/09/2020 [place] Comment on above: 1 Occurrences starting 07/09/2020 until 07/09/2020 Oxygen therapy [Minimum Data Set ] Initiate Oxygen Therapy Protocol Respiratory Care Routine Daily until discontinued starting 09/28/2020 [place] Comment on above: Daily until discontinued starting 2019 Surgical Pathology Surgical Path ology Lab Routine Release Upon Ordering for 1 Occurrences starting 09/28/2020 [place] Comment on above: Release Upon Ordering for 1 Occurrences starting 09/28/2020 End: 04-18-2020 Vitamin A Vitamin A Lab Routine Obstructive sleep apnea Morbid obesity with BMI of 45.0-49.9, adult ([facility]) 1 Occurrences starting 04/18/2020 until 04/18/2020 [place] Comment on above: 1 Occurrences starting 04/18/2020 until 04/18/2020 Vitamin A Vitamin A Lab Ro utine Obstructive sleep apnea Morbid obesity with BMI of 45.0-49.9, adult ([facility]) 04/18/2020 10:16 AM EDT [place] End: 04-18-2020 Vitamin B1 Vitamin B1 Lab Routine Obstructive sleep apnea Morbid obesity with BMI of 45.0-49.9, adult ([facility]) 1 Occurrences starting 04/18/2020 until 04/18/2020 [place] Comment on above: 1 Occurrences starting 04/18/2020 until 04/18/2020 Vitamin B1 Vitamin B1 Lab R outine Obstructive sleep apnea Morbid obesity with BMI of 45.0-49.9, adult ([facility]) 04/18/2020 10:16 AM EDT [place] End: 04-18-2020 Zinc Zinc Lab Routine Obstructive sleep apnea Morbid obesity with BMI of 45.0-49.9, adult ([facility]) 1 Occurrences starting 04/18/2020 until 04/18/2020 [place] Comment on above: 1 Occurrences starting 04/18/2020 until 04/18/2020 Zinc Zinc Lab Routine Obstructive sleep apnea Morbid obesity with BMI of 45.0-49.9, adult ([facility]) 04/18/2020 10:16 AM EDT [facility] [place] Payers Date Payer Category Payer Self-pay [id number] 2020 [facility] xxxxxxxxxxx 2020-Present [phone] CLAIMS DEPARTMENT [address] [place] [address] xxxxxxxxxxx [id number] 1987 Unknown [id number] 2.16.840.1.986386.3.579.2.355 1987 Unknown [id number] 2.16.840.1.400452.3.579.2.355 1987 Unknown [id number] 2.16.840.1.790028.3.579.2.355 1987 Unknown [id number] 2.16.840.1.703626.3.579.2.355 1987 Unknown [id number] 2.16.840.1.317560.3.579.2.355 1987 Unknown [id number] 2.16.840.1.215336.3.579.2.175 1987 Unknown [id number] 2.16.840.1.747731.3.579.2.593 1987 Unknown [id number] 2.16.840.1.984822.3.579.2.593 1987 Unknown [id number] 2.16.840.1.165932.3.579.2.593 1987 Unknown [id number] 2.16.840.1.648278.3.579.2.593 1987 Unknown [id number] 2.16.840.1.639809.3.579.2.593 1987 Unknown [id number] 2.16.840.1.328296.3.579.2.593 1987 Unknown [id number] 2.16.840.1.017018.3.579.2.593 1987 Unknown [id number] 2.16.840.1.987199.3.579.2.593 1987 Unknown [id number] 2.16.840.1.322029.3.579.2.593 1987 Unknown [id number] 2.16.840.1.446586.3.579.2.177 1987 Unknown [id number] 2.16.840.1.084201.3.579.2.1259 1987 Unknown [id number] 2.16.840.1.242411.3.579.2.1259 1987 Unknown [id number] 2.16.840.1.648408.3.579.2.1259 1987 Unknown [id number] 2.16.840.1.013731.3.579.2.1259 1987 Unknown [id number] 2.16.840.1.452750.3.579.2.1259 1987 Unknown [id number] 2.16.840.1.688642.3.579.2.173 1987 Unknown [id number] 2.16.840.1.811602.3.579.2.173 1959 Unknown [id number] 1959 Unknown [id number] 2.16.840.1.900529.19 Unknown [id number] 2.16.840.1.521160.3.579.2.531 Social History Date Type Detail Facility Tobacco smoking stat [facility] Unknown if ever smoked [facility] Start: 1985 Sex Assigned At Female [facility] Start: 04-18-2020 End: 06-20-2020 Tobacco smoking status NHIS Current every day smoker [facility] [place] Start: 04-18-2020 End: 09-28-2020 Alcohol intake Current drinker of alcohol (finding) [facility] [place] Start: 03-23-2020 History SDOH Alcohol Frequency 2 [facility] [place] Start: 03-23-2020 Alcohol Comment yearly JEROMY [place] Sex Assigned At Not on file [facility] [place] Exposure to SARS-CoV -2 (event) Unable to assess [facility] [place] Start: 06-20-2020 End: 09-28-2020 Tobacco use and exposure Never used [facility] [place] Start: 09-28-2020 Tobacco smoking stat us TNIS Former smoker [facility] [place] Start: 02-10-2018 End: 07-21-2020 History of tobacco use Current smoker [facility] [place] Start: 09-28-2020 Cigarettes smoked current (pack per day) - Reported [facility] [place] Start: 09-25-2020 Alcohol Comment RARELY JEROMY [place] Exposure to SARS-CoV -2 (event) Not sure [facility] [place] Sex Assigned At Sex Assigned At [facility] Other Goals Date Patient Goal Desired Activity /State Progress note 01-11-2024 Note Date & Type Note Facility 01-11-2024 Note Cardiology Clinic No te Chief Complaint: abnormal stress test HPI: Boo Liu is a 38 y.o. female With past medical history including anxiety, depression, GERD, fibromyalgia who was referred to cardiology for abnormal stress test. Stress test was reportedly performed due to chest pain. Chest pain is atypical in nature. It occurred at rest and did not seem to worsen with exertion. Stress test reportedly had ST depression in single lead. Myocardial perfusion imaging was without evidence of reversible ischemia, as per report. Patient presents for evaluation. Patient Reports rare episodes of atypical chest pain. She denies any additional cardiac complaints or concerns. No shortness of breath. No lower extreme edema, orthopnea, paroxysmal nocturnal dyspnea. Cardiology ROS: GENERAL: Denies fever, chills, night sweats, weight loss. HEENT: Denies changes in vision, photophobia, changes in hearing, epistaxis, oral bleeding. CARDIOVASCULAR: As per HPI RESPIRATORY: Denies SOB, coughing, wheezing GI: Denies abdominal pain, nausea/vomiting, heartburn, melena/hematochezia. RENAL: Denies dysuria, hematuria, flank pain. MSK: Denies muscle weakness/pain, arthralgias/joint pain. NEUROLOGIC: Denies LOC, weakness, numbness, headaches. SKIN: Denies abnormal rashes or bleeding. PSYCH: Denies significant anxiety, depression, sleep disturbances. Past Medical History She has no past medical history on file. Surgical History She has no past surgical history on file. Social History She reports that she has quit smoking. Her smoking use included cigarettes. She has never used smokeless tobacco. She reports that she does not currently use alcohol. She reports that she does not use drugs. Family History No family history on file. Medications Current Outpatient Medications on File Prior to Visit Medication Sig Dispense Refill amLODIPine (Norvasc) 10 mg tablet Take 10 mg by mouth in the morning. ARIPiprazole (Abilify) 5 mg tablet Take 5 mg by mouth in the morning. cetirizine (ZyrTEC) 10 mg tablet Take 10 mg by mouth in the morning. cholecalciferol (D3-5) 5,000 Units tablet Take 5,000 Units by mouth in the morning. DULoxetine (Cymbalta) [address] capsule Take 60 mg by mouth in the morning. losartan (Cozaar) 100 mg tablet Take 100 mg by mouth in the morning. Vyvanse 40 mg capsule Take 40 mg by mouth in the morning. No current facility-administered medications on file prior to visit. Allergies Penicillins and Latex Physical Exam VITAL SIGNS: BP 110/82 (BP Location: Left arm, Patient Position: Sitting, BP Cuff Size: Adult) Pulse 72 Resp 13 Ht 1.702 m (5' 7 ) Wt (!) 151 kg (333 lb) SpO2 97% BMI 52.16 kg/m??? Constitutional: Well developed, Well nourished, No acute distress, Non-toxic appearance. HENT: Normocephalic, Atraumatic, Bilateral external ears have normal appearance, Nose appears normal, nares are patent. Eyes: PERRLA, EOMI, Conjunctiva normal, No discharge. Neck: Normal range of motion, No tenderness, Supple, No stridor. No cervical lymphadenopathy noted. Cardiovascular: Normal heart rate, Normal rhythm, No murmurs, No rubs, No gallops. Thorax & Lungs: Normal breath sounds, No respiratory distress, No wheezing, No chest tenderness to palpation. Abdomen: Bowel sounds normal, Soft, Nontender, No masses, No pulsatile masses. Skin: Warm, Dry, No erythema, No rash. Back: No tenderness, No CVA tenderness. Extremities: Intact distal pulses, No edema, No tenderness, No cyanosis, No clubbing. Musculoskeletal: Grossly normal strength in extremities Neurologic: Alert & oriented x 3, no gross focal neurological deficits Psychiatric: Affect normal, Judgment normal, Mood normal. Impression: -Atypical chest pain -Abnormal stress test, as per report -HTN Plan: -Patient reportedly had ST depression on single-lead. She had no reversible perfusion defects. Chest pain is atypical in nature. No additional ischemic evaluation at this time. -Will obtain echocardiogram to assess LVEF, regional wall motion, and valvular function. If patient has any abnormality, will consider additional testing. -Bp is well controlled. Continue Amlodipine 10 mg daily and Losartain 100 mg daily. -Optimize medical management -Aggressive risk factor modification -Plan of care discussed with patient. All questions were answered. Patient voices understanding and is agreeable with current plan. -Patient was educated on red flag symptoms. Strict return precautions were provided. Patient verbalizes understanding -Follow-up in cardiology clinic after echo is complete Thank you for allowing us to participate in the care of your patient. Please do not hesitate to contact cardiology with any questions or concerns. Dago Mccullough MD Interventional Cardiology [facility] Evaluation note 12-04-2022 Note Date & Type [...] should improve within the next 4-7 days. [facility] Other Evaluation note 08-06-2022 Note Date & [...] no improvement in 2 to 3 days [facility] Other Evaluation note 03-16-2022 Note Date & [...] if symptoms worsen or new symptoms occur. [employer] [facility] Other Evaluation note 09-29-2021 Note Date & [...] Patient care instructions given in writting by [facility] Home document. [employer] [facility] Other Evaluation note 09-15-2021 Note Date & [...] water inside ear after shower may use hairspring staker on lowest cool setting to blow dry. Follow up with PCP or UC if no improvement in the next 2-3 days. Immediate eval for severe ear pain, severe headache, neck pain/stiffness, pain, erythema, or redness behind the ear, fever, N/V, hearing loss, fever, lethargy, or any other new or concerning symptoms. Patient verbalizes understanding and is agreeable to treatment plan [facility] Other Evaluation note Note Date & Type Note Facility Evaluation note No assessment information availa [facility] Work Phone: History general Narrative - Reported Note Date & Type Note Facility History general Narrative - Reported Type Medical History anxiety Medical History bipolar Medical History hypertension Surgical History bunion surgery 9 yrs Surgical History bunion surgery 12 years Surgical History clogged tear duct 2 years Surgical History laparoscopy Surgical History heart catheterization Hospitalization History pneumonia 18 mos [facility] Other History general Narrative - Reported Note Date & Type Note Facility History general Narrative - Reported Type Medical History anxiety Medical History bipolar Medical History hypertension Medical History hypocalcemia Surgical History bunion surgery 9 yrs Surgical History bunion surgery 12 years Surgical History clogged tear duct 2 years Surgical History laparoscopy Surgical History heart catheterization Hospitalization History pneumonia 18 mos [facility] Other Summary Purpose Family History No Family History Records Found Relationship Condition Age at Onset Recorded Date/T quang family member Diabetes mellitus Unknown father Heart disease Unknown Hypertension Unknown grandparent Unknown Myocardial infarction Unknown grandparent Myocardial infarction Unknown Unknown grandparent Cerebral aneurysm Unknown Not Specified Unknown Not Specified Hypertension Unknown sister History of malignant neoplasm of cervix U nknown Malignant neoplasm Unknown Advance Directives No Advanced Directives Records FoundDocuments on File Type Date Recorded Patient [employer] Consultant Expl anation Advance Directives and Living Will Power of [employer] Mat[employer] Documents on File Type Date Recorded Patient [employer] Consultant Expl anation ACP-Advance Directive ACP-Power of [employer] Matcher Documents on File Type Date Recorded Patient [employer] Consultant Expl anation ACP-Advance Directive ACP-Power of [employer] Matcher Advance Directive Response Recorded Date/ Time Advance Directives No March 01 11:29am Assessments Diagnosis Essential hypertension Unspecified essential hypertension QUITA (obstructive sleep apnea) Obstructive sleep apnea (adult) (pediatric) Arthritis Arthropathy, unspecified, site unspecified Anxiety and depression Dysthymic disorder Gastroesophageal reflux disease without esophagitis Esophageal reflux Obesity, Class III, BMI 40-49.9 (morbid obesity) ([facility]) Morbid obesity Fibromyalgia Mylagia and myositis, unspecified Obstructive sleep apnea Obstructive sleep apnea (adult) (pediatric) Morbid obesity with BMI of 45.0-49.9, adult ([facility]) Diagnosis Current nicotine use Essential hypertension Unspecified essential hypertension QUITA (obstructive sleep apnea) Obstructive sleep apnea (adult) (pediatric) Arthritis Arthropathy, unspecified, site unspecified Anxiety and depression Dysthymic disorder Gastroesophageal reflux disease without esophagitis Esophageal reflux Obesity, Class III, BMI 40-49.9 (morbid obesity) ([facility]) Morbid obesity Fibromyalgia Mylagia and myositis, unspecified Diagnosis Preop testing Preoperative examination, unspecified Diagnosis Preoperative testing Preoperative examination, unspecified Discharge Instructions * Instructions* Rembowski, Sis, RN - 09/28/2020 POST-ENDOSCOPY INSTRUCTIONS 1. ACTIVITY [...] questions, PLEASE call your doctor or the [facility] at No alcoholic [...] section and content) DATE CREATED AUTHOR 05/05/2018 [facility] DATE CREATED AUTHOR AUTHOR'S ORGANIZ ATION 12/23/2018 [facility] DATE CREATED AUTHOR AUTHOR'S ORGANIZ ATION 12/03/2020 [facility] DATE CREATED AUTHOR AUTHOR'S ORGANIZ ATION 04/29/2021 [facility] DATE CREATED AUTHOR AUTHOR'S ORGANIZ ATION 01/25/2023 [facility] DATE CREATED AUTHOR AUTHOR'S ORGANIZ ATION 02/09/2024 [facility] DATE CREATED AUTHOR AUTHOR'S ORGANIZ ATION 03/01/2024 [facility] DATE CREATED AUTHOR AUTHOR'S ORGANIZ ATION 03/06/2024 [facility] DATE CREATED AUTHOR AUTHOR'S ORGANIZ ATION 03/11/2024 [facility] DATE CREATED AUTHOR AUTHOR'S ORGANIZ ATION 03/18/2024 [facility] Reason for Visit (unrecogniz ed section and content) Status Reason Specialty Diagnoses / Procedures Re ferred By Contact Referred To Contact Diagnoses GERD (gastroesophageal reflux disease) Obesity GERD, OBESITY Procedures DC ESOPHAGOGASTRODUODENOSCOPY TRANSORAL DIAGNOSTIC EGD ESOPHAGOGASTRODUODENOSCOPY- GI UNIT SCHEDULED Fortunato Uriostegui DO [address] [facility] [address] [place] [address] [facility] Ordered Prescriptions (unrec ognized section and content) Prescription Sig Dispensed Refills Start Date End Da te pantoprazole (PROTONIX) 40 MG tablet Take 1 tablet by mouth every morning (before breakfast) 90 tablet 1 09/28/2020 Care Teams (unrecognized sec tion and content) Team Status: Active Member Role Status Dates Kota Reina MD Primary Care Provider Active Team Status: Inactive Member Role Status Dates Kota Reina MD Primary Care Provider Active Start: February 29, 2024 End: February 29, 2024 Will Mendoza Attending Provider Active Start: Amelia brown 2023 End: February 29, 2024 Goals (unrecognized section and content) Goals may be documented in a n alternate section FOR RECORDS PERTAINING TO PATIENTS WHO ARE [...] BE BASED ON THE PRIMARY CLINICAL RECORDS. [employer] provides no warranty or guarantee of the accuracy or completeness of information in this document.
[2024-03-25 11:59] LABS: Basophils Percent Auto 0.3 % (0.2-2.0); Eosinophils Absolute Auto 0.3 10^3/uL (0.0-0.7); Hematocrit 34.7 % (36.0-48.0); Hemoglobin 11.8 g/dL (12.0-16.0); Immature Granulocytes Abs Auto 0.04 10^3/uL (0.00-0.03); Immature Granulocytes Pct Auto 0.6 % (0.0-0.5); Lymphocytes Absolute Auto 1.7 10^3/uL (1.2-3.8); Lymphocytes Percent Auto 25.6 % (20.5-60.0); Mean Corpuscular Hemoglobin 30.4 pg (26.7-34.0); Mean Corpuscular Volume 89.4 fL (81.0-99.0); Mean Platelet Volume 10.6 fL (9.5-13.5); Monocytes Absolute Auto 0.5 10^3/uL (0.3-0.8); Monocytes Percent Auto 7.9 % (1.7-12.0); Neutrophils Percent Auto 61.6 % (43.0-75.0); Platelet Count 178 10^3/uL (150-450); Red Blood Count 3.88 10^6/uL (4.20-5.40); Red Cell Distribution Width 12.9 % (11.0-15.0); White Blood Count 6.5 10^3/uL (4.0-11.0)
[2024-03-25 12:40] LABS: Alanine Aminotransferase 54 U/L (14-59); Albumin Level 3.2 g/dL (3.4-5.0); Alkaline Phosphatase 97 U/L (46-116); Anion Gap 12.7; Aspartate Amino Transferase 30 U/L (15-37); BUN Creatinine Ratio 14.5; Bilirubin Direct 0.1 mg/dL (0.0-0.2); Bilirubin Total 0.5 mg/dL (0.2-1.0); Calcium 8.5 mg/dL (8.5-10.1); Carbon Dioxide 25.5 mmol/L (21.0-32.0); Chloride 106 mmol/L (98-107); Estimated GFR (African America >60 (>=60); Estimated GFR (Non-African Ame >60 (>=60); Globulin 3.3 g/dL; Glucose 165 mg/dL (74-106); Potassium 3.2 mmol/L (3.5-5.1); Sodium 141 mmol/L (136-145); Total Protein 6.5 g/dL (6.4-8.2)
[2024-03-25 12:41] LABS: INR 0.97; Partial Thromboplastin Time 27.7 sec (22.3-36.2); Prothrombin Time 10.3 sec (9.0-11.6)
== END 2024-03-25 10:54 | disposition home or self-care (01) ==
LOC: PST 10:54
PROVIDERS: PCP Nurse Practitioner; Visit Provider Obstetrics & Gynecology
DX: Z01.812 Encounter for preprocedural laboratory examination (principal); N92.1 Excessive and frequent menstruation with irregular cycle; R10.2 Pelvic and perineal pain; N94.6 Dysmenorrhea, unspecified; N94.10 Unspecified dyspareunia
CPT/HCPCS: 80048; 80076; 85025; 85610; 85730; 86850; 86900; 86901

== ENCOUNTER 2024-03-29 08:17 | Outpatient (OUT) | payer OTHER, SELFPAY ==
--- NOTE | 2024-03-29 08:26 | CA_ITS ---
Patient Name: BOO LIU MR#: [id number] : 1985 Exam Date: 03/29/2024 Ordering Doctor: DAGO BURRIS M.D. ECHOCARDIOGRAM REPORT PROCEDURE: CA ECHO DOPPLER COMPLETE INDICATIONS: AGUIRRE COMPARISON: None. DESCRIPTION: COMPLETE ECHOCARDIOGRAM Real-time transthoracic echocardiography with 2D, M-mode, spectral and color flow Doppler performed. QUALITY: Technical quality was good. LEFT VENTRICLE: Normal chamber size. Mild to moderate concentric left ventricular hypertrophy. Global left ventricular systolic function is normal. LV EF: Estimated left ventricular ejection fraction is 60-65% DIASTOLIC: Normal diastolic function. ATRIAL SEPTUM: LEFT ATRIUM: Normal chamber size. RIGHT ATRIUM: Normal chamber size. RIGHT VENTRICLE: Normal chamber size. Normal right ventricular systolic function. TRICUSPID VALVE: Normal mobility and thickness. No stenosis with trivial regurgitation. No evidence of pulmonary hypertension. RVSP 25 mmHg MITRAL VALVE: Normal mobility and thickness. No evidence of mitral valve stenosis. There is no mitral annular calcification. No mitral regurgitation. AORTIC VALVE: Normal trileaflet appearance. No visible sclerosis. Normal leaflet mobility. No evidence of aortic valve stenosis. Trivial aortic regurgitation. AORTIC ROOT: Normal diameter and appearance. PULMONIC VALVE: Normal thickness and mobility. No stenosis. Trivial regurgitation. PERICARDIUM: No evidence of pericardial effusion. IVC: Collapses with inspirations. Normal size. PLEURA: CONCLUSION: 1. Mild to moderate concentric left ventricular hypertrophy with normal systolic function. LVEF is estimated at 60 to 65%. 2. Normal right ventricular size and systolic function. 3. No significant valvular dysfunction. 4. Normal right-sided pressures. Adult Echocardiography Procedure Report Left Ventricle LVEDD (3.7 - 5.6 cm): 4.30 cm LVESD (2.2 - 4.0 cm): 2.70 cm LVIVS thickness (0.6 - 1.2 cm): 1.46 cm LVPW thickness (0.5 - 1.0 cm): 1.24 cm e': 0.14 m/s E - e': 4.58 LVOT Max Gradient: 2.77 mm[Hg] LVOT Area (cm2): 0.83 m/s Peak Velocity (LVOT): 0.83 m/s Mean Velocity (LVOT): 0.61 m/s LVOT Diameter 1.95 cm Left Ventricular Ejection Fraction: 60-65 % Left Atrium LA Volume Index (2D A2C): 19.66 ml/m2 Left Atrium Systolic Dimension: 3.03 cm Mitral Valve MV E to A Ratio: 1.47 Mitral Valve A-Wave Peak Velocity: 0.45 m/s Mitral Valve E-Wave Peak Velocity: 0.66 m/s Right Ventricle RV Internal Diastolic Dimension: 3.56 cm Aorta AO Root Diam: 3.26 cm Ascending Ao Diam: 2.80 cm Aortic Valve AoV Area (Peak Justice): 2.28 cm2, 2.28 cm2 AoV Area (VTI): 2.37 cm2, 2.37 cm2 Peak Velocity(Antegrade Flow): 1.09 m/s Peak Gradient(Antegrade Flow): 4.74 mm[Hg] Mean Velocity(Antegrade Flow): 0.75 m/s Mean Gradient(Antegrade Flow): 2.58 mm[Hg] Velocity Time Integral: 24.90 cm Tricuspid Valve Peak Velocity (Regurgitant Flow): 2.15 m/s, 2.34 m/s Pulmonic Valve Mean Gradient: 2.57 mm[Hg] Mean Velocity: 0.77 m/s Peak Velocity: 1.03 m/s, 0.50 m/s Peak Gradient: 0.00 mm[Hg], 3.86 mm[Hg], 4.21 mm[Hg] Right Atrium Right Atrium Systolic Pressure: 33.14 ml, 33.14 ml Dictated by: Albert Jc M.D. on 03/29/2024 at 13:06 Approved by: Albert Jc M.D. on 03/29/2024 at 13:09
== END 2024-03-29 08:18 | disposition home or self-care (01) ==
LOC: CARD 08:17
PROVIDERS: PCP Nurse Practitioner; Visit Provider Internal Medicine Cardiovascular Disease
DX: R06.09 Other forms of dyspnea (principal); R07.9 Chest pain, unspecified
CPT/HCPCS: 93306

== ENCOUNTER 2024-03-30 06:17 | Day surgery (SDC) | payer OTHER, SELFPAY ==
[2024-03-25 11:30] VITALS: BP 118/72; PULSE 81; TEMP 36.5; O2SAT 97; BMI 53.7
[2024-03-30] VITALS (22 sets, daily range): BP systolic 103–141; BP diastolic 68–81; PULSE 74–109; TEMP 35.7–36.8; O2SAT 92–99; BMI 53.4
--- OUTSIDE RECORDS SUMMARY | 2024-03-30 06:21 | XMS_ITS | CCD ---
Author Organization [facility] Care Team Providers Care Web Designer Name Role Phone Sam Collier Unavailable Unavailable GOPAL, KAMALESAYAHY Attending Unavai lable GOPAL, ZENOBIAALESPRAVEENA Primary Care Unavai lable ZENOBIA HERRONALESPRAVEENA Attending Unavai lable GOPAL, HUSSAINHIGHLANDStephanie Primary Care Unavai lable NATE HERRON Admitting Unavai lable NATE HERRON Attending Chi [facility] LETICIA Aly Attending Unavaila ble GOPAL, HUSSAINHIGHLANDStephanie Primary Care LETICIA Aly Admitting Unavaila LETICIA Auguste Attending Unavaila ble GOPAL[facility] UnavaKota Callahan Primary Care Provider Kota Reina Primary Care Provider [phone] FORTUNATO URIOSTEGUI Admitting Unavailable FORTUNATO URIOSTEGUI Attending Unavailable KOTA REINA Primary Care Unavailable Annette Strickland Unavailable Linda Baires Unavailable Liliana Morfin Unavailable AICHHOLZ, CARPET SEWER LAKEISHA Admitting Unavailable AICHHOLZ, CARPET SEWER [place]KEISHA Attending Unavailable AICHHOLZ, CARPET SEWER LAKEISHA Primary Care Unavailable AICHHOLZ, CARPET SEWER [place] Consulting Unavailable AICHHOLZ, CARPET SEWER [place] Admitting Unavailable AICHHOLZ, CARPET SEWER [place]KEISHA Attending Unavailable AICHHOLZ, CARPET SEWER LAKEISHA Primary Care Unavailable AICHHOLZ, CARPET SEWER [place] Consulting Unavailable AICHHOLZ, CARPET SEWER [place]KE[place]HA Admitting Unavailable AICHHOLZ, CARPET SEWER [place]KEISHA Attending Unavailable AICHHOLZ, CARPET SEWER LAKEISHA Primary Care Unavailable AICHHOLZ, CARPET SEWER [place] Consulting Unavailable AICHHOLZ, CARPET SEWER [place]HA Primary Care Unavailable NATALI, TAI Admitting Unavailable NATALI, TAI Attending Unavailable NATALI, TAI Consulting Unavailable AICHHOLZ, CARPET SEWER [place] Admitting Unavailable AICHHOLZ, CARPET SEWER [place]KEISHA Attending Unavailable AICHHOLZ, CARPET SEWER [place]KEISHA Primary Care Unavailable DR GOOD HENSON V Consulting Unavailable AICHHOLZ, CARPET SEWER [place] Consulting Unavailable AICHHOLZ, CARPET SEWER [place] Admitting Unavailable AICHHOLZ, CARPET SEWER [place] Attending Unavailable AICHHOLZ, CARPET SEWER [place]KE[place]HA Primary Care Unavailable AICHHOLZ, CARPET SEWER [place] Consulting Unavailable AICHHOLZ, CARPET SEWER [place] Admitting Unavailable AICHHOLZ, CARPET SEWER LAKEISHA Attending Unavailable AICHHOLZ, CARPET SEWER LAKEISHA Primary Care Unavailable AICHHOLZ, CARPET SEWER [place]KE[place] Consulting Unavailable AICHHOLZ, CARPET SEWER [place]KE[place]HA Admitting Unavailable AICHHOLZ, CARPET SEWER LAKEISHA Attending Unavailable AICHHOLZ, CARPET SEWER [place]KE[place]HA Primary Care Unavailable AICHHOLZ, CARPET SEWER [place]KE[place] Consulting Unavailable AICHHOLZ, CARPET SEWER [place] Admitting Unavailable AICHHOLZ, CARPET SEWER LAKEISHA Attending Unavailable AICHHOLZ, CARPET SEWER LAEKISHA Primary Care Unavailable AICHHOLZ, CARPET SEWER LAKEIS[place] Consulting Unavailable AICHHOLZ, LAKEISHA J. Primary Care Unavailable RUBÉN TOBIN Referring Unavailable AICHHOLZ, LAKEISHA Attending Unavailable WILL MENDOZA Attending Unavailable AICHHOLZ, LAKEISHA Attending Unavailable AICHHOLZ, LAKEISHA Attending Unavailable WILL MENDOZA Attending Unavailable MD Kota Reina Primary Care Provider [phone] Will Mendoza Attending Provider [phone] Will Mendoza Admitting Unavailable Will Mendoza Attending [...] sources) Latex; Translations: [LATEX] Substance Allergy 0 [facility] Penicillins (antibiotic) (2 sources) Amoxicillin; Translations: [PENICILLINS] Drug Allergy 4 stomach ache [facility] (10 sources) Amoxicillin Drug Allergy 4 Rash, Nausea And Vomiting [place], [place] (10 sources) Latex Propensity to adverse reactions to drug 0 Rash [place], [place] (1 source) Amoxicillin Drug Allergy [facility] (1 source) Latex Drug allergy (disorder) [facility] (1 source) Amoxicillin Drug Allergy 3 [facility] (1 source) Latex Drug allergy (disorder) 3 [facility] Medications Current Medications Medication Drug [...] / neomycin 3.5 mg/ml / polymyxin b 06896 unt/ml otic suspension (4 sources) Aminoglycoside Antibacterial, Polymyxin-class Antibacterial, Corticosteroid Start: 08-06-2022 Neomycin-Polymyx in-HC 3.5-77494-6 3 drops both ears Three times a day for 7 days Jul, Not-Taking Start: 09-15-2021 Neomycin-Polym yxin-HC 3.5-89713-7 4 drops into affected ear Otic Three [...] 0 04-17-2020 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 Onset: 9 Episodic [...] Test Name Value Interpretation Reference Range Facility [facility] 02-29-2024 L Specimen: [id number] Received: 03/01/24 Status: GRETA Bird Num: [id number] Spec Type: Surgical Subm Dr: Will Mendoza Tissues: A Endometrium - Biopsy (EMB) Procedures: HE/2, Gross/Micro L4 Age/ Patient Sex Location Account Attending Physician Boo Liu 38/F LABELL [id number] Will Mendoza SPEC NUM: [id number] RECD: 03/01/24 STATUS: GRETA BIRD NUM: [id number] CELIO: 02/29/24 DR: Will Mendoza ENTERED: 03/01/24 [facility] DR: Jayla,Lab SPEC TYPE: Surgical DEPT: JOCELYNE [...] cm, entirely submitted in A1. -------- Specimen: [id number] Received: 03/01/24 Status: GRETA Bird Num: [id number] Spec Type: Surgical Subm Dr: Will Mendoza Tissues: A Endometrium - Biopsy (EMB) Procedures: Syed PEREZ/Brandan L4 -------- Patient: Boo Liu [id number] (Continued) -------- Specimen: [id number] Received: 03/01/24 (Continued) Signed (signature on file) Casie Myrick MD 03/03/242057 -------- Specimen: [id number] Received: 03/01/24 Status: GRETA Bird Num: [id number] Spec Type: Surgical Subm Dr: Will Mendoza Tissues: A Endometrium - Biopsy (EMB) Procedures: DAMONSyed Cardoso/Brandan L4 -------- Patient: Boo Liu [id number] (Continued) -------- Specimen: [id number] Received: 03/01/24 (Continued) CPT Codes 95182 -------- -------- Specimen: [id number] Received: 03/01/24 Status: GRETA Bird Num: [id number] Spec Type: Surgical Subm Dr: Will Mendoza Tissues: A Endometrium - Biopsy (EMB) Procedures: HE/2, Gross/Micro L4 -------- Patient: Boo Liu [id number] (Continued) -------- Signed (signature on file) Mejia-Vinicius Myrick MD 03/03/242057 Normal [facility] Antithrombin III Roosevelt 02-08 Antithrombin III Act 102 % Normal 83-122 [facility] Comment on above: Result Comment: Patients receiving Hirudin may have a falsely decreased Antitrombin III Activity. Performed By: #### L UPPRO #### [facility] [address] [place] [address] Clerical Coordinator: Mazin Franklin MD [place] [id number] Clerical Coordinator: Bobby Flanagan MD #### AF5MUT, APTMUT #### [facility] [address] [place] [address] Clerical Coordinator: Jeffy Benz MD #### HOCYS, PROCAC, AT3A, B2GGM, PROSAC, FA8 #### [facility] [employer] [address] [place] [address] [id number] Clerical Coordinator: Bobby Flanagan MD #### DIME #### [facility] [address] [place] [address] Clerical Coordinator: Mazin Franklin MD Factor VIII Activityon 02-08 Factor VIII Activity 176 % High 50-150 [facility] Comment on above: Performed By: #### L UPPRO #### [facility] [address] [place] [address] Clerical Coordinator: Mazin Franklin MD [address] [address] Clerical Coordinator: Bobby Flanagan MD #### AF5MUT, APTMUT #### [facility] [address] [place] [address] Clerical Coordinator: Jeffy Benz MD #### HOCYS, PROCAC, AT3A, B2GGM, PROSAC, FA8 #### [address] [address] Clerical Coordinator: Bobby Flanagan MD #### DIME #### [facility] [address] [place] [address] Clerical Coordinator: Mazin Franklin MD Lupus Anticoagulanton 2023 Dilute Emanuel Viper Negative Normal [facility] Comment on above: Performed By: #### L UPPRO #### [facility] [address] [place] [address] Clerical Coordinator: Mazin Franklin MD [address] [address] Clerical Coordinator: Bobby Flanagan MD #### AF5MUT, APTMUT #### [facility] [address] [place] [address] Clerical Coordinator: Jeffy Benz MD #### HOCYS, PROCAC, AT3A, B2GGM, PROSAC, FA8 #### [address] [address] Clerical Coordinator: Bobby Flanagan MD #### DIME #### [facility] [address] [place] [address] Clerical Coordinator: Mazin Franklin MD PT Mutation [id number] 02-09-20 24 PT [id number] VARIANT Negative Normal [facility] Comment on above: Result Comment: (NOT E) Indication for testing: Assess genetic risk for thrombosis. NEGATIVE: The Factor II, prothrombin Q45569P mutation, was not detected. Other causes of [...] M.D., Ph.D. BACKGROUND INFORMATION: Prothrombin (F2) c.*97G>A (Z74957B) Pathogenic Variant CHARACTERISTICS: The Factor II, c.*97G>A (N31662G) pathogenic variant is a common genetic risk [...] CAUSE: Homozygosity or heterozygosity for F2 c.*97G>A (W62675V). PATHOGENIC VARIANT TESTED: F2 c.*97G>A (D33124H). CLINICAL SENSITIVITY FOR VENOUS THROMBOSIS: Approximately 10 percent. METHODOLOGY: Polymerase chain reaction and fluorescence monitoring. ANALYTICAL SENSITIVITY AND SPECIFICITY: 99 percent. LIMITATIONS: Diagnostic errors can occur due to rare sequence variations. F2 gene variants, other than c.*97G>A (M79404A), will not be detected. This test was developed and its performance characteristics determined by [facility]. It has not been cleared or approved by the US Food and Drug Administration. This test was performed in a CLIA certified laboratory and is intended for clinical purposes. Counseling and informed consent are recommended for genetic testing. Consent forms are available online. Performed By: [facility] [employer] [address] [place] [address] Lathmaker: Yves Perez MD, PhD IA Number: [id number] Performed By: #### L UPPRO #### [facility] [address] [place] [address] Clerical Coordinator: Mazin Franklin MD [address] [address] Clerical Coordinator: Bobby Flanagan MD #### AF5MUT, APTMUT #### [address] [id number] Clerical Coordinator: Jeffy Benz MD #### HOCYS, PROCAC, AT3A, B2GGM, PROSAC, FA8 #### [address] [address] Clerical Coordinator: Bobby Flanagan MD #### DIME #### [facility] [address] [place] [address] Clerical Coordinator: Mazin Franklin MD PT PCR SPECIMEN Whole Blood Normal [facility] Comment on above: Performed By: #### L UPPRO #### [facility] [place] [address] Clerical Coordinator: Mazin Franklin MD [address] [address] Clerical Coordinator: Bobby Flanagan MD #### AF5MUT, APTMUT #### [address] [id number] Clerical Coordinator: Jeffy Benz MD #### HOCYS, PROCAC, AT3A, B2GGM, PROSAC, FA8 #### [address] [address] Clerical Coordinator: Bobby Flanagan MD #### DIME #### [facility] [address] [place] [address] Clerical Coordinator: Mazin Franklin MD Protein C Activityon 024 Protein C Activity 96 % Normal >80 [facility] Comment on above: Result Comment: Patients [...] VIII. Performed By: #### L UPPRO #### [facility] [address] [place] [address] Clerical Coordinator: Mazin Franklin MD [address] [phone] Clerical Coordinator: Bobby Flanagan MD #### AF5MUT, APTMUT #### [facility] [address] [place] [address] Clerical Coordinator: Jeffy Benz MD #### HOCYS, PROCAC, AT3A, B2GGM, PROSAC, FA8 #### [address] [address] Clerical Coordinator: Bobby Flanagan MD #### DIME #### [facility] [address] [place] [address] Clerical Coordinator: Mazin Franklin MD Protein S Activityon 024 Protein S Activity 90 % Normal 59-130 [facility] Comment on above: Result Comment: Patients [...] VIII. Performed By: #### L UPPRO #### [facility] [place] [address] Clerical Coordinator: Mazin Franklin MD [address] [address] Clerical Coordinator: Bobby Flanagan MD #### AF5MUT, APTMUT #### [facility] [address] [place] [address] Clerical Coordinator: Jeffy Benz MD #### HOCYS, PROCAC, AT3A, B2GGM, PROSAC, FA8 #### [address] [address] Clerical Coordinator: Bobby Flanagan MD #### DIME #### [facility] [address] [place] [address] Clerical Coordinator: Mazin Franklin MD B2 Glycoprotein G,Mon 2023 B2 Glycoprot I, IgG <0.6 Normal 0.0-7.0 [facility] Comment on above: Result Comment: Reference Range: <7.0 Negative 7.0-10.0 Equivocal >10.0 Positive Performed By: #### L UPPRO #### [facility] [address] [place] [address] Clerical Coordinator: Mazin Franklin MD [address] [address] Clerical Coordinator: Bobby Flanagan MD #### AF5MUT, APTMUT #### [facility] [address] [place] [address] Clerical Coordinator: Jeffy Benz MD #### HOCYS, PROCAC, AT3A, B2GGM, PROSAC, FA8 #### [address] [address] Clerical Coordinator: Bobby Flanagan MD #### DIME #### [facility] [place] [address] Clerical Coordinator: Mazin Franklin MD B2 Glycoprot I, IgM <0.9 Normal 0.0-7.0 [facility] Comment on above: Result Comment: Reference Range: <7.0 Negative 7.0-10.0 Equivocal >10.0 Positive Performed By: #### L UPPRO #### [facility] [address] [place] [address] Clerical Coordinator: Mazin Franklin MD [address] [address] Clerical Coordinator: Bobby Flanagan MD #### AF5MUT, APTMUT #### [facility] [address] [address] Clerical Coordinator: Jeffy Benz MD #### HOCYS, PROCAC, AT3A, B2GGM, PROSAC, FA8 #### [address] [address] Clerical Coordinator: Bobby Flanagan MD #### DIME #### [facility] [address] [place] [address] Clerical Coordinator: Mazin Franklin MD Factor V Mutationon 02-08-20 24 F 5 SPECIMEN Whole Blood Normal [facility] Comment on above: Performed By: #### L UPPRO #### [facility] [address] [place] [address] Clerical Coordinator: Mazin Franklin MD [address] [address] Clerical Coordinator: Bobby Flanagan MD #### AF5MUT, APTMUT #### [facility] [address] [place] [address] Clerical Coordinator: Jeffy Benz MD #### HOCYS, PROCAC, AT3A, B2GGM, PROSAC, FA8 #### [facility] [address] [place], [place] [id number] Clerical Coordinator: Bobby Flanagan MD #### SOMMER #### [facility] [address] [place], [place] [id number] Clerical Coordinator: Mazin Franklin MD FACTOR 5 MUTATION Negative Normal [facility] Comment on above: Result Comment: (NOT E) Indication for testing: Assess genetic risk for thrombosis. NEGATIVE: The factor V Leiden variant, c.1601G>A; p.Slt684Avm, was not detected. This does not exclude [...] function in the F5 gene variant c.1601G>A (p.Qsn893Ysa). Legacy nomenclature: [id number] (1691G>A) CLINICAL SENSITIVITY: 20-50 percent of individuals with an isolated VTE have the FVL variant. METHODOLOGY: Polymerase chain reaction and fluorescence monitoring. ANALYTICAL SENSITIVITY AND SPECIFICITY: 99 percent. LIMITATIONS: Diagnostic errors can occur due to rare sequence variations. F5 gene mutations, other than p.Sxz424Ztf, will not be detected. This test was developed and its performance characteristics determined by [facility]. It has not been cleared or approved by the US Food and Drug Administration. This test was performed in a CLIA certified laboratory and is intended for clinical purposes. Counseling and informed consent are recommended for genetic testing. Consent forms are available online. Performed By: [facility] [address] [place] [address] Lathmaker: Yves Perez MD, PhD CLIA Number: [id number] Performed By: #### L UPPRO #### [facility] [address] [place] [address] Clerical Coordinator: Mazin Franklin MD [address] [phone] Clerical Coordinator: Bobby Flanagan MD #### AF5MUT, APTMUT #### [address] [id number] Clerical Coordinator: Jeffy Benz MD #### HOCYS, PROCAC, AT3A, B2GGM, PROSAC, FA8 #### [address] [address] Clerical Coordinator: Bobby Flanagan MD #### DIME #### [facility] [place] [address] Clerical Coordinator: Mazin Franklin MD Lupus Anticoagulanton 2023 Anticardiolipin IgA 1.7 APL Normal 0.0-14.0 [facility] Comment on above: Result Comment: Reference Range: <14.0 Negative 14.0-20.0 Equivocal >20.0 Positive When results are Equivocal, it is recommended to retest after 4-6 weeks. Performed By: #### L UPPRO #### [facility] [address] [place] [address] Clerical Coordinator: Mazin Franklin MD [address] [address] Clerical Coordinator: Bobby Flanagan MD #### AF5MUT, APTMUT #### [facility] [address] [place], [place] [id number] Clerical Coordinator: Jeffy Benz MD #### HOCYS, PROCAC, AT3A, B2GGM, PROSAC, FA8 #### [address] [address] Clerical Coordinator: Bobby Flanagan MD #### DIME #### [facility] [address] [place] [address] Clerical Coordinator: Mazin Franklin MD Anticardiolipin IgG 0.8 GPL Normal 0.0-10.0 [facility] Comment on above: Result Comment: Reference Range: <10.0 Negative 10.0-40.0 Equivocal >40.0 Positive Performed By: #### L UPPRO #### [facility] [address] [place] [address] Clerical Coordinator: Mazin Franklin MD [address] [address] Clerical Coordinator: Bobby Flanagan MD #### AF5MUT, APTMUT #### [facility] [address] [place] [address] Clerical Coordinator: Jeffy Benz MD #### HOCYS, PROCAC, AT3A, B2GGM, PROSAC, FA8 #### [address] [address] Clerical Coordinator: Bobby Flanagan MD #### DIME #### [facility] [address] [place] [address] Clerical Coordinator: Mazin Franklin MD Anticardiolipin IgM 2.6 MPL Normal 0.0-10.0 [facility] Comment on above: Result Comment: Reference Range: <10.0 Negative 10.0-40.0 Equivocal >40.0 Positive Performed By: #### L UPPRO #### [facility] [address] [place] [address] Clerical Coordinator: Mazin Franklin MD [address] [id number] Clerical Coordinator: Bobby Flanagan MD #### AF5MUT, APTMUT #### [facility] [address] [place] [address] Clerical Coordinator: Jeffy Benz MD #### HOCYS, PROCAC, AT3A, B2GGM, PROSAC, FA8 #### [address] [address] Clerical Coordinator: Bobby Flanagan MD #### DIME #### [facility] [address] [place] [address] Clerical Coordinator: Mazin Franklin MD D-Dimer Teston 02-05-2024 D-Dimer Test 0.29 ug/mL FEU Normal 0.00-0.[address] [facility] Comment on above: Result Comment: When combined [...] DVT. Performed By: #### L UPPRO #### [facility] [address] [place] [address] Clerical Coordinator: Mazin Franklin MD [address] [phone] Clerical Coordinator: Bobby Flanagan MD #### AF5MUT, APTMUT #### [facility] [address] [place] [address] Clerical Coordinator: Jeffy Benz MD #### HOCYS, PROCAC, AT3A, B2GGM, PROSAC, FA8 #### [facility] [employer] [address] [place] [address] Clerical Coordinator: Bobby Flanagan MD #### DIME #### [facility] [address] [place] [address] Clerical Coordinator: Mazin Franklin MD Homocysteineon 02-05-2024 Homocysteine 10.8 umol/L Normal 0.0-15.0 [facility] Comment on above: Performed By: #### L UPPRO #### [facility] [address] [place] [address] Clerical Coordinator: Mazin Franklin MD [facility] [employer] [address] [place] [address] [id number] Clerical Coordinator: Bobby Flanagan MD #### AF5MUT, APTMUT #### [facility] [address] [place] [address] Clerical Coordinator: Jeffy Benz MD #### HOCYS, PROCAC, AT3A, B2GGM, PROSAC, FA8 #### [address] [address] Clerical Coordinator: Bobby Flanagan MD #### DIME #### [facility] [address] [place] [address] Clerical Coordinator: Mazin Franklin MD Lupus Anticoagulanton 2023 aPTT Coag (Bld) [Time] 25.0 s Normal 23.9-33.8 [facility] Comment on above: Result Comment: IV Heparin Therapy Range: 62.0-94.0 Performed By: #### L UPPRO #### [facility] [address] [place] [address] Clerical Coordinator: Mazin Franklin MD [address] [address] Clerical Coordinator: Bobby Flanagan MD #### AF5MUT, APTMUT #### [facility] [address] [place], [place] [id number] Clerical Coordinator: Jeffy Benz MD #### HOCYS, PROCAC, AT3A, B2GGM, PROSAC, FA8 #### [address] [address] Clerical Coordinator: Bobby Flanagan MD #### DIME #### [facility] [address] [place] [address] Clerical Coordinator: Mazin Franklin MD INR Coag (PPP) [Relative time] 1.0 {INR} Normal [facility] Comment on above: Result Comment: Therapeutic Range: Moderate Anticoagulant Intensity: INR = 2.0-3.0 High Anticoagulant Intensity: INR = 2.5-3.5 Performed By: #### L UPPRO #### [facility] [address] [place] [address] Clerical Coordinator: Mazin Franklin MD [address] [address] Clerical Coordinator: Bobby Flanagan MD #### AF5MUT, APTMUT #### [facility] [address] [place], [place] [id number] Clerical Coordinator: Jfefy Benz MD #### HOCYS, PROCAC, AT3A, B2GGM, PROSAC, FA8 #### [address] [address] Clerical Coordinator: Bobby Flanagan MD #### DIME #### [facility] [address] [place] [address] Clerical Coordinator: Mazin Franklin MD PT Coag (PPP) [Time] 13.3 s Normal 11.5-14.2 [facility] Comment on above: Performed By: #### L UPPRO #### [facility] [address] [place] [address] Clerical Coordinator: Mazin Franklin MD [address] [address] Clerical Coordinator: Bobby Flanagan MD #### AF5MUT, APTMUT #### [facility] [address] [place], [place] [id number] Clerical Coordinator: Jeffy Benz MD #### HOCYS, PROCAC, AT3A, B2GGM, PROSAC, FA8 #### [address] [address] Clerical Coordinator: Bobby Flanagan MD #### DIME #### [facility] [address] [place] [address] Clerical Coordinator: Mazin Franklin MD Office Visiton 01-11-2024 Follow-up visit [id number] Boo Liu 1985 F Date Provider Department Center 01/11/2024 3848-SANDRINEFIDELDAGO WINTER LILIAM [place] No family history on file Level of Service:54929 [place] OFFICE/OUTPATIENT NEW MODERATE MDM 45 MINUTES Reason for Visit and Comments: New Patient [632] - Abnormal stress test Normal [facility] XR FOOT RT MIN 3 VIEWSon XR [...] Tiff PHILLIPS Date: 2023-01-24 01:10 Normal [facility] US THYROIDon 12-18-2022 US THYROID [...] by: GOOD HENSON Date: 2022-12-18 15:15 Normal [facility] Quick Strepon 12-04-2022 S. pyogenes Org specific cx Ql (Throat) Positive [facility] Other Quick Strep [facility] Other PROF CHEM 8 (BAS METB)on Anion gap [Moles/Vol] 13.1 mmol/L Normal [facility] Comment on above: Performed By: #### B MP #### [facility] [address] [address] [address] Claudia Myrick Calcium [Mass/Vol] 9.3 mg/dL Normal 8.5-10.1 [facility] Comment on above: Performed By: #### B MP #### [facility] [address] [address] [address] Claudia Myrick Chloride [Moles/Vol] 102 mmol/L Normal 98-107 [facility] Comment on above: Performed By: #### B MP #### [facility] [address] [place] [address] Dr. Claudia Myrick CO2 [Moles/Vol] 25.4 mmol/L Normal 21.0-32.[address] [facility] Comment on above: Performed By: #### B MP #### [facility] [address] [address] [address] Claudia Myrick Creatinine [Mass/Vol] 0.75 mg/dL Normal 0.55-1.02 [facility] Comment on above: Performed By: #### B MP #### [facility] [address] [place] [address] Dr. Claudia Myrick EGFR-AF ISRAELI >60 Normal >=[address] [facility] Comment on above: Performed By: #### B MP #### [facility] [address] [address] [address] Claudia Myrick EGFR-NON AF ISRAELI >60 Normal >=60 [facility] Comment on above: Performed By: #### B MP #### [facility] [address] [address] [address] Claudia Myrick Glucose [Mass/Vol] 90 mg/dL Normal 74-106 [facility] Comment on above: Performed By: #### B MP #### [facility] [address] [address] [address] Claudia Myrick Potassium [Moles/Vol] 4.5 mmol/L Normal 3.5-5.1 [facility] Comment on above: Performed By: #### B MP #### [facility] [address] [place] [address] Dr. Claudia Myrick Sodium [Moles/Vol] 136 mmol/L Normal 136-[address] [facility] Comment on above: Performed By: #### B MP #### [facility] [address] [place] [address] Dr. Claudia Myrick Urea nitrogen [Mass/Vol] 15.0 mg/dL Normal 7.0-18.0 [facility] Comment on above: Performed By: #### B MP #### [facility] [address] [place] [address] Dr. Claudia Myrick Urea nitrogen/Creatinine [Mass ratio] 20.0 mg/mg Normal [facility] Comment on above: Performed By: #### B MP #### [facility] [address] [place] [address] Dr. Claudia Myrick PROF CHEM 8 (BAS METB)on Anion gap [Moles/Vol] 14.6 mmol/L Normal [facility] Comment on above: Performed By: #### B MP #### [facility] [address] [place] [address] Dr. Claudia Myrick Calcium [Mass/Vol] 8.7 mg/dL Normal 8.5-10.1 [facility] Comment on above: Performed By: #### B MP #### [facility] [address] [place] [address] Dr. Claudia Myrick Chloride [Moles/Vol] 104 mmol/L Normal 98-107 [facility] Comment on above: Performed By: #### B MP #### [facility] [address] [place] [address] Dr. Claudia Myrick CO2 [Moles/Vol] 23.7 mmol/L Normal 21.0-32.[address] [facility] Comment on above: Performed By: #### B MP #### [facility] [address] [place] [address] Dr. Claudia Myrick Creatinine [Mass/Vol] 1.07 mg/dL Critically high 0.55-1.02 [facility] Comment on above: Performed By: #### B MP #### [facility] [address] [address] [address] Claudia Myrick EGFR-AF ISRAELI >60 Normal >=60 [facility] Comment on above: Performed By: #### B MP #### [facility] [address] [address] [address] Claudia Myrick EGFR-NON AF ISRAELI 58 mL/min/1.73m2 Critically low >=60 [facility] Comment on above: Performed By: #### B MP #### [facility] [address] [address] [address] Claudia Myrick Glucose [Mass/Vol] 129 mg/dL Critically high 74-106 [facility] Comment on above: Performed By: #### B MP #### [facility] [address] [address] [address] Claudia Myrick Potassium [Moles/Vol] 3.2 mmol/L Critically low 3.5-5.1 [facility] Comment on above: Performed By: #### B MP #### [facility] [address] [address] [address] Claudia Myrick Sodium [Moles/Vol] 140 mmol/L Normal 136-[address] [facility] Comment on above: Performed By: #### B MP #### [facility] [address] [address] [address] Claudia Myrick Urea nitrogen [Mass/Vol] 9.0 mg/dL Normal 7.0-18.0 [facility] Comment on above: Performed By: #### B MP #### [facility] [address] [address] [address] Claudia Myrick Urea nitrogen/Creatinine [Mass ratio] 8.4 mg/mg Normal [facility] Comment on above: Performed By: #### B MP #### [facility] [address] [address] [address] Claudia Myrick PROF CHEM 8 (BAS METB)on Anion gap [Moles/Vol] 11.1 mmol/L Normal [facility] Comment on above: Performed By: #### B MP #### [facility] [address] [address] [address] Claudia Myrick Calcium [Mass/Vol] 9.5 mg/dL Normal 8.5-10.[address] [facility] Comment on above: Performed By: #### B MP #### [facility] [address] [address] [address] Claudia Myrick Chloride [Moles/Vol] 104 mmol/L Normal 98-107 [facility] Comment on above: Performed By: #### B MP #### [facility] [address] [place] [address] Dr. Claudia Myrick CO2 [Moles/Vol] 29.9 mmol/L Normal 21.0-32.0 [facility] Comment on above: Performed By: #### B MP #### [facility] [address] [address] [address] Claudia Myrick Creatinine [Mass/Vol] 1.05 mg/dL Critically high 0.55-1.02 [facility] Comment on above: Performed By: #### B MP #### [facility] [address] [place] [address] Dr. Claudia Myrick EGFR-AF ISRAELI >60 Normal >=60 [facility] Comment on above: Performed By: #### B MP #### [facility] [address] [address] [address] Claudia Myrick EGFR-NON AF ISRAELI =60 Normal >=60 [facility] Comment on above: Performed By: #### B MP #### [facility] [address] [address] [address] Claudia Myrick Glucose [Mass/Vol] 122 mg/dL Critically high 74-106 [facility] Comment on above: Performed By: #### B MP #### [facility] [address] [place] [address] Dr. Claudia Myrick Potassium [Moles/Vol] 3.0 mmol/L Critically low 3.5-5.1 [facility] Comment on above: Performed By: #### B MP #### [facility] [address] [place] [address] Dr. Claudia Myrick Sodium [Moles/Vol] 143 mmol/L Normal 136-[address] [facility] Comment on above: Performed By: #### B MP #### [facility] [address] [place] [address] Dr. Claudia Myrick Urea nitrogen [Mass/Vol] 11.0 mg/dL Normal 7.0-18.0 [facility] Comment on above: Performed By: #### B MP #### [facility] [address] [place] [address] Dr. Claudia Myrick Urea nitrogen/Creatinine [Mass ratio] 10.5 mg/mg Normal [facility] Comment on above: Performed By: #### B MP #### [facility] [address] [place] [address] Dr. Claudia Myrick POTASSIUMon 04-23-2022 Potassium [Moles/Vol] 3.2 mmol/L Critically low 3.5-5.1 [facility] Comment on above: Performed By: #### K #### [facility] [address] [place] [address] Dr. Claudia Myrick THYROGLOBULIN ABon Thyroglobulin Antibody <1.0 Normal 0.0-0.9 [facility] Comment on above: Result Comment: Thyr oglobulin Antibody measured by [employer] Performed By: #### T HYGAB #### [facility] [address] [place] [address] Dr. Claudia Myrick THYROID PEROXIDASE ABon 06- Thyroid Peroxidase (TPO) Ab <8 Normal 0-34 [facility] Comment on above: Performed By: #### T POAB #### [facility] [address] [place] [address] Dr. Claudia Myrick CBC AUTO DIFFon 04-08-2022 BASO # 0.1 103/ul Normal 0.0-0.1 [facility] Comment on above: Performed By: #### C BC #### [facility] [address] [address] [address] Claudia Myrick Basophils/100 WBC (Bld) 0.6 % Normal 0.2-2.0 [facility] Comment on above: Performed By: #### C BC #### [facility] [address] [place] [address] Dr. Claudia Myrick EO # 0.3 103/ul Normal 0.0-0.7 [facility] Comment on above: Performed By: #### C BC #### [facility] [address] [place] [address] Dr. Claudia Myrick Eosinophils/100 WBC (Bld) 4.2 % Normal 0.9-7.0 [facility] Comment on above: Performed By: #### C BC #### [facility] [address] [place] [address] Dr. Claudia Myrick Erythrocyte distribution width (RBC) [Ratio] 12.8 % Normal 11.0-15.0 [facility] Comment on above: Performed By: #### C BC #### [facility] [address] [place] [address] Dr. Claudia Myrick Hematocrit (Bld) [Volume fraction] 42.0 % Normal 36.0-48.0 [facility] Comment on above: Performed By: #### C BC #### [facility] [address] [place] [address] Dr. Claudia Myrick Hemoglobin (Bld) [Mass/Vol] 14.1 g/dL Normal 12.0-16.0 [facility] Comment on above: Performed By: #### C BC #### [facility] [address] [place] [address] Dr. Claudia Myrick IG # 0.05 10e3/ul Critically high 0.00-0.03 [facility] Comment on above: Performed By: #### C BC #### [facility] [address] [place] [address] Dr. Claudia Myrick IG % 0.6 % Critically high 0.0-0.5 [facility] Comment on above: Performed By: #### C BC #### [facility] [address] [place] [address] Dr. Claudia Myrick LYMPH # 1.7 103/ul Normal 1.2-3.8 [facility] Comment on above: Performed By: #### C BC #### [facility] [address] [place] [address] Dr. Claudia Myrick Lymphocytes/100 WBC (Bld) 21.1 % Normal 20.5-60.0 [facility] Comment on above: Performed By: #### C BC #### [facility] [address] [place] [address] Dr. Claudia Myrick MANUAL DIFF REQ NO Normal [facility] Comment on above: Performed By: #### C BC #### [facility] [address] [place] [address] Dr. Claudia Myrick MCH (RBC) [Entitic mass] 30.6 pg Normal 26.7-34.0 [facility] Comment on above: Performed By: #### C BC #### [facility] [address] [place] [address] Dr. Claudia Myrick MCHC (RBC) [Mass/Vol] 33.6 g/dL Normal 29.9-35.2 [facility] Comment on above: Performed By: #### C BC #### [facility] [address] [place] [address] Dr. Claudia Myrick MCV (RBC) [Entitic vol] 91.1 fL Normal 81.0-99.0 [facility] Comment on above: Performed By: #### C BC #### [facility] [address] [place] [address] Dr. Claudia Myrick MONO # 0.6 103/ul Normal 0.3-0.8 [facility] Comment on above: Performed By: #### C BC #### [facility] [address] [place] [address] Dr. Claudia Myrick Monocytes/100 WBC (Bld) 7.1 % Normal 1.7-12.0 [facility] Comment on above: Performed By: #### C BC #### [facility] [address] [place] [address] Dr. Claudia Myrick NEUT # 5.4 103/ul Normal 1.4-6.5 [facility] Comment on above: Performed By: #### C BC #### [facility] [address] [place] [address] Dr. Claudia Myrick Neutrophils/100 WBC (Bld) 66.4 % Normal 43.0-75.0 [facility] Comment on above: Performed By: #### C BC #### [facility] [address] [place] [address] Dr. Claudia Myrick Platelet mean volume (Bld) [Entitic vol] 11.1 fL Normal 9.5-13.5 [facility] Comment on above: Performed By: #### C BC #### [facility] [address] [place] [address] Dr. Claudia Myrick PLT 213 103/ul Normal 150-450 [facility] Comment on above: Performed By: #### C BC #### [facility] [address] [place] [address] Dr. Claudia Myrick RBC 4.61 106/ul Normal 4.20-5.40 [facility] Comment on above: Performed By: #### C BC #### [facility] [address] [place] [address] Dr. Claudia Myrick WBC 8.2 103/ul Normal 4.0-11.0 [facility] Comment on above: Performed By: #### C BC #### [facility] [address] [place] [address] Dr. Claudia Myrick FREE T3on 04-08-2022 FREE T3 3.34 pg/mlL Normal 2.18-3.98 [facility] Comment on above: Performed By: #### L IPID, FT3, TSH, CMP ####[facility] [address] [address]Dr. Claudia Myrick FREE T4on 04-08-2022 Free T4 [Mass/Vol] 0.96 ng/dL Normal 0.76-1.[address] [facility] Comment on above: Performed By: #### F T4 ####[facility] [address] [address]Dr. Claudia Myrick GLYCOHEMOGLOBIN A1Con 2021 ADA RECOMMENDATION SEE BELOW Normal [facility] Comment on above: Result Comment: ADA RECOMMENDED LIMIT 4.0 - 6.0 ADA THERAPEUTIC TARGET < 7.0 ACTION SUGGESTED > 7.0 Performed By: #### A 1C #### [facility] [address] [address] [address] Claudia Myrick Glucose [Mass/Vol] 108 mg/dL Normal [facility] Comment on above: Performed By: #### A 1C #### [facility] [address] [address] [address] Claudia Myrick HbA1c (Bld) [Mass fraction] 5.4 % Normal 4.5-6.2 [facility] Comment on above: Performed By: #### A 1C #### [facility] [address] [address] [address] Claudia Myrick LIPID PROFILEon 04-08-2022 CHOL-HDL RATIO NORM SEE BELOW Normal [facility] Comment on above: Result Comment: 3.3 - 4.4 LOW RISK 4.4 - 7.1 AVERAGE RISK 7.1 - 11.0 MODERATE RISK >11.0 HIGH RISK Performed By: #### L IPID, FT3, TSH, CMP ####[facility] [address] [address]DrRobert Myrick Cholesterol [Mass/Vol] 213 mg/dL Critically high <=200 [facility] Comment on above: Performed By: #### L IPID, FT3, TSH, CMP ####[facility] [address] [address]Dr[address] Myrick Cholesterol in HDL [Mass/Vol] 34 mg/dL Critically low 40-60 [facility] Comment on above: Performed By: #### L IPID, FT3, TSH, CMP ####[facility] [address] [address]DrRobert Myrick Cholesterol in LDL [Mass/Vol] 135.6 mg/dL Normal [facility] Comment on above: Performed By: #### L IPID, FT3, TSH, CMP ####[facility] [address] [address]Dr. Claudia Myrick Cholesterol.total/C holesterol in HDL [Mass ratio] 6.3 {ratio} Normal [facility] Comment on above: Performed By: #### L IPID, FT3, TSH, CMP ####[facility] [address] [address]Dr. Claudia Myrick HDL NORMAL > or = 60 mg/dl - LO W CARDIOVASCULAR RISK <40 mg/dl - HIGH CARDIOVASCULAR RISK Normal [facility] Comment on above: Performed By: #### L IPID, FT3, TSH, CMP ####[facility] [address] [address]Dr. Claudia Myrick LDL CALC NORMAL SEE BELOW Normal [facility] Comment on above: Result Comment: <100 mg/dl OPTIMAL 100 - 129 mg/dl NEAR OR ABOVE OPTIMAL 130 - 159 mg/dl BORDERLINE HIGH 160 - 189 mg/dl HIGH >190 mg/dl VERY HIGH Performed By: #### L IPID, FT3, TSH, CMP ####[facility] [address] [address]Dr. Claudia Myrick Triglyceride [Mass/Vol] 217 mg/dL Critically high <=150 [facility] Comment on above: Performed By: #### L IPID, FT3, TSH, CMP ####[facility] [address] [address]Dr. Claudia Myrick VLDL CALC 43.4 mg/dL Normal [facility] Comment on above: Performed By: #### L IPID, FT3, TSH, CMP ####[facility] [address] [address]Dr. Claudia Myrick PROF 14(COMP METB)on 022 Albumin [Mass/Vol] 3.6 g/dL Normal 3.4-5.[address] [facility] Comment on above: Performed By: #### L IPID, FT3, TSH, CMP ####[facility] [address] [address]Dr. Claudia Myrick Albumin/Globulin [Mass ratio] 1.1 {ratio} Normal [facility] Comment on above: Performed By: #### L IPID, FT3, TSH, CMP ####[facility] [address] [address]Dr. Claudia Myrick ALP [Catalytic activity/Vol] 75 U/L Normal 46-116 [facility] Comment on above: Performed By: #### L IPID, FT3, TSH, CMP ####[facility] [address] [address]Dr. Claudia Myrick ALT [Catalytic activity/Vol] 60 U/L Critically high 14-59 [facility] Comment on above: Performed By: #### L IPID, FT3, TSH, CMP ####[facility] [address] [place], [place] [address]Dr. Claudia Myrick Anion gap [Moles/Vol] 12.1 mmol/L Normal [facility] Comment on above: Performed By: #### L IPID, FT3, TSH, CMP ####[facility] [address] [place], [place] [address]Dr. Claudia Myrick AST [Catalytic activity/Vol] 29 U/L Normal 15-37 [facility] Comment on above: Performed By: #### L IPID, FT3, TSH, CMP ####[facility] [address] [address]Dr. Claudia Myrick Bilirubin [Mass/Vol] 0.6 mg/dL Normal 0.2-1.0 [facility] Comment on above: Performed By: #### L IPID, FT3, TSH, CMP ####[facility] [address] [place], [place] [address]Dr. Claudia Myrick Calcium [Mass/Vol] 8.9 mg/dL Normal 8.5-10.[address] [facility] Comment on above: Performed By: #### L IPID, FT3, TSH, CMP ####[facility] [address] [address]Dr. Claudia Myrick Chloride [Moles/Vol] 103 mmol/L Normal 98-107 [facility] Comment on above: Performed By: #### L IPID, FT3, TSH, CMP ####[facility] [address] [address]Dr. Claudia Myrick CO2 [Moles/Vol] 27.8 mmol/L Normal 21.0-32.0 [facility] Comment on above: Performed By: #### L IPID, FT3, TSH, CMP ####[facility] [address] [address]Dr. Claudia Myrick Creatinine [Mass/Vol] 0.86 mg/dL Normal 0.55-1.02 [facility] Comment on above: Performed By: #### L IPID, FT3, TSH, CMP ####[facility] [address] [place], [place] [address]Dr. Claudia Myrick EGFR-AF ISRAELI >60 Normal >=60 [facility] Comment on above: Performed By: #### L IPID, FT3, TSH, CMP ####[facility] [address] [place], [place] [address]Dr. Claudia Ramez EGFR-NON AF ISRAELI >60 Normal >=60 [facility] Comment on above: Performed By: #### L IPID, FT3, TSH, CMP ####[facility] [address] [place], [place] [address]Dr. Claudia Myrick Globulin (S) [Mass/Vol] 3.2 g/dL Normal [facility] Comment on above: Performed By: #### L IPID, FT3, TSH, CMP ####[facility] [address] [place], [place] [address]Dr. Claudia Myrick Glucose [Mass/Vol] 114 mg/dL Critically high 74-106 T [facility] Comment on above: Performed By: #### L IPID, FT3, TSH, CMP ####[facility] [address] [place], [place] [address]Dr. Claudia Myrick Potassium [Moles/Vol] 2.8 mmol/L Critically low 3.5-5.1 [facility] Comment on above: Result Comment: TEST REPEATED CRITICAL VALUE VERIFIED Performed By: #### L IPID, FT3, TSH, CMP ####[facility] [address] [address]Dr. Claudia Myrick Protein [Mass/Vol] 6.8 g/dL Normal 6.4-8.2 [facility] Comment on above: Performed By: #### L IPID, FT3, TSH, CMP ####[facility] [address] [address]Dr. Claudia Myrick Sodium [Moles/Vol] 138 mmol/L Normal 136-145 [facility] Comment on above: Performed By: #### L IPID, FT3, TSH, CMP ####[facility] [address] [address]Dr. Claudia Myrick Urea nitrogen [Mass/Vol] 11.0 mg/dL Normal 7.0-18.0 [facility] Comment on above: Performed By: #### L IPID, FT3, TSH, CMP ####[facility] [address] [address]Dr. Claudia Myrick Urea nitrogen/Creatinine [Mass ratio] 12.8 mg/mg Normal [facility] Comment on above: Performed By: #### L IPID, FT3, TSH, CMP ####[facility] [address] [address]Dr. Claudia Myrick TSHon 04-08-2022 TSH 1.561 uIU/mL Normal 0.358-3.740 [facility] Comment on above: Performed By: #### L IPID, FT3, TSH, CMP #### [facility] [address] [address] [address] Claudia Myrick UA RANDOM W/MICROSCOPICon BACTERIA TRACE Abnormal NONE SEEN [facility] Comment on above: Performed By: #### U AMIC ####[facility] [address] [address]DrRobert Myrick Bilirubin Ql (U) Negative Normal NEGATIVE [facility] Comment on above: Performed By: #### U AMIC ####[facility] [address] [address]Dr. Yilan Myrick CAST NONE SEEN Normal NONE SEEN [facility] Comment on above: Performed By: #### U AMIC ####[facility] [address] [address]Dr. Claudia Myrick Clarity (U) CLEAR Normal CLEAR [facility] Comment on above: Performed By: #### U AMIC ####[facility] [address] [address]Dr. Sandiobey Myrick Color (U) YELLOW Normal YELLOW [facility] Comment on above: Performed By: #### U AMIC ####[facility] [address] [address]Dr. Sandiobey Myrick Crystals LM Nom (Urine sed) NONE SEEN Normal NONE SEEN [facility] Comment on above: Performed By: #### U AMIC ####[facility] [address] [place], [place] [address]Dr. Sandiobey Myrick Epithelial cells LM Ql (Urine sed) FEW Abnormal NONE SEEN /RARE [facility] Comment on above: Performed By: #### U AMIC ####[facility] [address] [place], [place] [address]Dr. Claudia Myrick Glucose Ql (U) Negative Normal NEGATIVE [facility] Comment on above: Performed By: #### U AMIC ####[facility] Zys[address] [place], [place] [address]Dr. Claudia Myrick Hemoglobin Ql (U) Negative Normal NEGATIVE The [facility] Comment on above: Performed By: #### U AMIC ####[facility] Odjnmkvj[address] [place], [place] [address]Dr. Sandilan Myrick Ketones Ql (U) Negative Normal NEGATIVE [facility] Comment on above: Performed By: #### U AMIC ####[facility] Zbuotbl[address]uk[address] [place], [place] [address]Dr. Claudia Myrick LEUKOCYTES Negative Normal NEGATIVE [facility] Comment on above: Performed By: #### U AMIC ####[facility] Abffwuytnu[address] [place], [place] [address]Dr. Sandilan Myrick MUCOUS NONE SEEN Normal NONE SEEN [facility] Comment on above: Performed By: #### U AMIC ####[facility] [address] [place] [address]Dr. Claudia Myrick Nitrite Ql (U) Negative Normal NEGATIVE [facility] Comment on above: Performed By: #### U AMIC ####[facility] Os[address]as[address] [place] [address]Dr. Claudia Myrick pH (U) 7.0 [pH] Normal 5-9 [facility] Comment on above: Performed By: #### U AMIC ####[facility] [address] [place] [address]Dr. Claudia Myrick RBC NONE SEEN Abnormal 0-2 [facility] Comment on above: Performed By: #### U AMIC ####[facility] D[address] [place] [address]Dr. Claudia Myrick SPEC GRAVITY 1.015 Normal 1.005-<=1.025 The [facility] Comment on above: Performed By: #### U AMIC ####[facility] Iz[address] [place], [place] [address]Dr. Claudia Myrick UA PROTEIN Negative Normal NEGATIVE/ TRACE [facility] Comment on above: Performed By: #### U AMIC ####[facility] [address] [place] [address]Dr. Claudia Myrick Urobilinogen Qn (U) 0.2 {Brendan'U}/dL Normal 0.2 - 1. 0 [facility] Comment on above: Performed By: #### U AMIC ####[facility] [address] [place], [place] [address]Dr. Claudia Myrick WBC NONE SEEN Normal NONE SEEN [facility] Comment on above: Performed By: #### U AMIC ####[facility] Gwgeuageua[address] [place], [place] [address]Dr. Claudia Myrick XR shoulder RT min 2V*on XR shoulder RT min 2V* [facility] [employer] Other XR shoulder RT min 2V* [facility] [employer] Other XR shoulder RT min 2V* [address] [facility] [employer] Other XR shoulder RT min 2V* YAKELIN Dotson [address] [facility] Other XR shoulder RT min 2V* XRay Report [facility] Other XR shoulder RT min 2V* Signed [facility] Other XR shoulder RT min 2V* Patient: Boo Bo MR#: [id number] [facility] Other XR shoulder RT min 2V* : 1985 Acct:[id number] [facility] Other XR shoulder RT min 2V* Age/Sex: 36 / F ADM Date: 03/16/22 [facility] Other XR shoulder RT min 2V* Loc: XDUCLY Room: [facility] Other XR shoulder RT min 2V* [facility]te Strickland [facility] Other XR shoulder RT min 2V* Ordering Provider: [facility] Other XR shoulder RT min 2V* Date of Service: 03/16/22 [facility] Other XR shoulder RT min 2V* XR/XR shoulder RT min 2V*: Acute pain of right shoulder [facility] Other XR shoulder RT min 2V* Copies to: ANNETTE STRICKLAND [facility] [employer] Other XR shoulder RT min 2V* RIGHT SHOULDER - 3 views [facility] Other XR shoulder RT min 2V* CLINICAL HISTORY: Right shoulder pain since pushing off a couch and hearing a pop last week. Pain [facility] Other XR shoulder RT min 2V* radiates down the arm. [facility] Other XR shoulder RT min 2V* COMPARISON: None [facility] Other XR shoulder RT min 2V* AP, Y and Grashey views were obtained. There is no evidence of fracture or dislocation. Minor [facility] Other XR shoulder RT min 2V* degenerative change is present at the acromioclavicular joint and greater tuberosity. There are no [facility] Other XR shoulder RT min 2V* significant soft tissue abnormalities. [facility] Other XR shoulder RT min 2V* XR/XR shoulder RT min 2V* [facility] Other XR shoulder RT min 2V* IMPRESSION: [facility] Other XR shoulder RT min 2V* NO ACUTE BONY FINDINGS. [facility] Other XR shoulder RT min 2V* Impression dictated by: Delia Kumar M.D.03/16/2022 1:37 PM [facility] Other XR shoulder RT min 2V* Dictation Location: [place] [address] [facility] Other XR shoulder RT min 2V* Transcribed By: HARRIS 03/16/22 [facility] [employer] [facility] Other XR shoulder RT min 2V* Dictated By: Delia Kumar MD 03/16/22 [facility] Other XR shoulder RT min 2V* Signed By: [facility] Other XR shoulder RT min 2V* 03/16/22 [facility] Other COVID Quick Testingon 2020 Result Negative [facility] Other Quick Fluon 09-29-2021 FLUAV Ab CF (S) [Titer] Negative [facility] Other FLUBV Ab CF (S) [Titer] Negative [facility] Other Physician Referralon 021 Physician Referral [id number] Normal [facility] Surgical Pathologyon 020 Surgical Pathology (NOTE) [...] stain. SURGICAL PATHOLOGY CONSULTATION [facility]: [id number] Path Number: [id number] [facility] ANATOMIC PATHOLOGY [address] [place] [id number] Normal [facility] Comment on above: Performed By: #### P PPVS #### [facility] [address] [place] [address] Clerical Coordinator: Bobby Flanagan MD COVID-19on 09-25-2020 SARS-CoV-2 [place], [place] SARS-CoV-2 Not Detected Not Detected [place], [place] Comment on above: The specimen is NEGATIVE for SARS-CoV-2, the novel coronavirus associated with COVID-19. A negative result does not rule out COVID-19. Terrie SARS-CoV-2 for use on the [employer] is a real-time RT-PCR test intended [...] this assay. Fact sheet for Healthcare Providers: https://www.fda.gov/media/834275/download Fact sheet for Patients: https://www.fda.gov/media/079296/download METHODOLOGY: RT-PCR SARS-CoV-2, Rapid [place], [place] Source .NASOPHARYNGEAL SWAB [place], [place] COVID-19 Ambulatoryon 2019 SARS-CoV-2, ELVIN Not Detected Not Detected [place], [place] Comment on above: (NOTE) This nucleic acid amplification test was developed and its performance characteristics determined by [employer]. Nucleic acid amplification tests include PCR and [...] detected) result in this assay. Performed At: [facility] [address] [facility] [place] [id number] Latricia Barrera MD Ph:[phone] Urine Drug Screenon 07-09-20 20 Amphetamine Screen, [...] [place], [place] Methamphetamine, Urine Negative NEGATIVE [facility] [place] Opiates, Urine Negative NEGATIVE [facility] [place] Oxy[place]one Screen, Ur Negative NEGATIVE [facility] [place] Phencyclidine, Urine Negative NEGATIVE [facility] Propoxyphene, Urine Negative NEGATIVE [facility] Test Information NOT REPORTED [facility] [place], [place] Tricyclic Antidepressants, Urine Negative NEGATIVE [facility] [place] Comment on above: Drug screen results are to be used for medical purposes only. All positive results are unconfirmed. Testing for employment or legal uses should be sent to a reference laboratory for confirmation. CBC Auto Differentialon Basophils (Bld) [#/Vol] 0.04 10*3/uL [facility], [place] Basophils/100 WBC (Bld) 1 % 0 - 2 % [facility] Differential Type NOT REPORTED [facility] Eosinophils (Bld) [#/Vol] 0.37 10*3/uL [facility], [place] Eosinophils/100 WBC (Bld) 5 % High 1 - 4 % [facility] Erythrocyte distribution width (RBC) [Ratio] 12.6 % 11.8 - 14.4 % [facility], [place] Hematocrit (Bld) [Volume fraction] 42.8 % 36.3 - 47.1 % [facility] [place] Hemoglobin (Bld) [Mass/Vol] 14.2 g/dL 11.9 - 15.1 g/dL [place] Immature granulocytes (Bld) [#/Vol] 0 % 0 [place] Immature granulocytes (Bld) [#/Vol] 10*3/uL [place] Interpretation and review of laboratory results Abnormal [place] Lymphocytes (Bld) [#/Vol] 1.80 10*3/uL [place] Lymphocytes/100 WBC (Bld) 25 % 24 - 43 % [place] MCH (RBC) [Entitic mass] 30.7 pg 25.2 - 33.5 pg [place] MCHC (RBC) [Mass/Vol] 33.2 g/dL 28.4 - 34.8 g/dL [place] MCV (RBC) [Entitic vol] 92.4 fL 82.6 - 102.9 fL [place] Monocytes (Bld) [#/Vol] 0.61 10*3/uL [place] Monocytes/100 WBC (Bld) 8 % 3 - 12 % [place] Platelet mean volume (Bld) [Entitic vol] 11.2 fL 8.1 - 13.5 fL [place] Platelets (Bld) [#/Vol] 201 10*3/uL [place] Platelets (Bld) [#/Vol] NOT REPORTED [place] RBC (Bld) [#/Vol] 4.63 10*6/uL 3.95 - 5.1 1 m/uL [place] RBC morphology finding Nom (Bld) NOT REPORTED [place] Segmented neutrophils/100 WBC (Bld) 61 % 36 - 65 % [place] Segs Absolute 4.41 [place], [place] WBC (Bld) [#/Vol] 0.0 10*3/uL 0.0 per 10 0 WBC [place] WBC (Bld) [#/Vol] 7.3 10*3/uL [place] WBC Morphology NOT REPORTED [place] Comprehensive Metabolic Pane gisela 04-18-2020 Albumin [Mass/Vol] 4.4 g/dL 3.5 - 5.2 g/dL [place] Albumin/Globulin [Mass ratio] 1.7 {ratio} [place] ALP [Catalytic activity/Vol] 68 U/L 35 - 104 U/L [place] ALT [Catalytic activity/Vol] 35 U/L High 5 - 33 U/L [place] Anion gap [Moles/Vol] 13 mmol/L 9 - 17 mmol/L [place] AST [Catalytic activity/Vol] 24 U/L <32 [place] Bilirubin Ql (U) 0.51 mg/dL 0.3 - 1.2 mg/dL [place] Bun/Cre Ratio 18 [place], [place] Calcium [Mass/Vol] 9.4 mg/dL 8.6 - 10. 4 mg/dL [place] Chloride [Moles/Vol] 100 mmol/L 98 - 107 mmol/L [place] CO2 [Moles/Vol] 27 mmol/L 20 - 31 mmol/L [place] Creatinine [Mass/Vol] 0.83 mg/dL 0.5 - 0.9 mg/dL [place] GFR >60 >60 mL/min [place] GFR Non- >60 >60 mL/min [place] Glucose [Mass/Vol] 117 mg/dL High 70 - 99 mg/dL [place], [place] Potassium [Moles/Vol] 3.5 mmol/L Low 3.7 - 5.3 mmol/L [place] Protein [Mass/Vol] 7.0 g/dL 6.4 - 8.3 g/dL [place] Sodium [Moles/Vol] 140 mmol/L 135 - 144 mmol/L [place] Urea nitrogen [Mass/Vol] 15 mg/dL 6 - 20 mg/dL [place] Ferritinon 04-18-2020 Ferritin [Mass/Vol] 59 ug/L 13 - 150 ug/L [place] Hemoglobin A1Con 04-18-2020 Glucose [Mass/Vol] 105 mg/dL [place] Comment on above: The ADA and AACC rec ommend providing the estimated average glucose result to permit better patient understanding of their HBA1c result. HbA1c (Bld) [Mass fraction] 5.3 % 4.8 - 5.9 % [place] Iron and TIBCon 04-18-2020 Iron [Mass/Vol] 104 ug/dL 37 - 145 ug/dL [place] Iron Saturation 33 % 20 - 55 % [place] TIBC 312 ug/dL 250 - 450 ug/dL [place] UIBC 208 ug/dL 112 - 347 ug/dL [place] Lipid Panelon 04-18-2020 Cholesterol [Mass/Vol] 207 mg/dL High <200 [place] Comment on above: Cholesterol Guidelines: <200 Desirable 200-240 Borderline >240 Undesirable Cholesterol in HDL [Mass/Vol] 33 mg/dL Low >40 [place] Comment on above: HDL Guidelines: <40 Undesirable 40-59 Borderline >59 Desirable Cholesterol in LDL [Mass/Vol] 119 mg/dL 0 - 130 mg/dL [place] Comment on above: LDL Guidelines: <100 Desirable 100-129 Near to/above Desirable 130-159 Borderline >159 Undesirable Direct (measured) LDL and calculated LDL are not interchangeable tests. Cholesterol in VLDL [Mass/Vol] NOT REPORTED High 1 - 30 mg/dL [place] Cholesterol.total/C holesterol in HDL [Mass ratio] 6.3 {ratio} High <5 [place] Triglyceride [Mass/Vol] 273 mg/dL High <150 [place] Comment on above: Triglyceride Guidelines: <150 Desirable 150-199 Borderline 200-499 High >499 Very high Based on AHA Guidelines for fasting triglyceride, July 2012. Magnesiumon 04-18-2020 Magnesium [Mass/Vol] 2.1 mg/dL 1.6 - 2.6 mg/dL [place] Metabolic Panelon 04-18-2020 GFR/1.73 sq M predicted among non-blacks MDRD (S/P/Bld) [Vol rate/Area] [place] Comment on above: Average GFR for 30-3 9 years old: 107 mL/min/1.73sq m Chronic Kidney Disease: <60 mL/min/1.73sq m Kidney failure: <15 mL/min/1.73sq m eGFR calculated using average adult body mass. Additional eGFR calculator available at: http://www.Meetup/multiple_crcl_2012.htm Stage 1: Some kidney damage normal GFR Stage 2: Mild kidney damage GFR 60-89 Stage 3: Moderate kidney damage GFR 30-59 Stage 4: Severe kidney damage GFR 15-29 Stage 5: Severe kidney damage GFR <15 ESRD - chronic treatment by dialysis or transplant Otheron 04-18-2020 Interpretation and review of laboratory results Abnormal [place] PTH, Intacton 04-18-2020 Pth Intact 54.97 pg/mL 15 - 65 pg/mL [place] Comment on above: SAMPLES FROM PATIENT S ROUTINELY RECEIVING HIGH DOSE BIOTIN THERAPY MAY SHOW FALSELY DEPRESSED RESULTS. ADDITIONAL INFORMATION MAY BE REQUIRED FOR DIAGNOSIS. T4, Freeon 04-18-2020 Interpretation and review of laboratory results Abnormal [place] Thyroxine, Free 0.90 ng/dL Low 0.93 - 1.7 ng/dL [place] TSH without Reflexon 020 TSH Qn 1.74 m[IU]/L [place] Vitamin B12 & Folateon 04-18 Cobalamin (Vitamin B12) [Mass/Vol] 324 pg/mL 232 - 1245 pg/mL [place] Folate 14.3 ng/mL >4.8 [place] Vitamin D 25 Hydroxyon 04-18 Interpretation and review of laboratory results Abnormal [place] Vit D, 25-Hydroxy 22.6 ng/mL Low 30 - 100 ng/mL [place] Comment on above: Reference Range: Vitamin D status Range Deficiency <20 ng/mL Mild Deficiency 20-30 ng/mL Sufficiency 30-100 ng/mL Toxicity >100 ng/mL Basic Metabolic Panelon 03-0 Anion gap molar conc 13 mmol/L Normal 10-20 [facility] Healthcare Comment on above: Performed By: #### 1 [id number] #### [facility] [address] [place] [address] Calcium mass conc 9.6 mg/dL Normal 8.6-10.3 [facility] Comment on above: Performed By: #### 1 [id number] #### [facility] [address] [place] [address] Chloride molar conc 104 mmol/L Normal 98-107 [facility] Comment on above: Performed By: #### 1 [id number] #### [facility] [address] [place] [address] Creatinine mass conc 0.83 mg/dL Normal 0.50-1.[address] [facility] Comment on above: Performed By: #### 1 [id number] #### [facility] [address] [place] [address] GFR/1.73 sq M.predicted MDRD vol rate/area mL/min/{1.73_m2} Normal [facility] Comment on above: Result Comment: Inte rpretation for Chronic Kidney Disease: Stages 1&2 >60 Healthy or potential kidney damage. Mild decrease of GFR. Stage 3 30-59 Moderate decrease of GFR. Stage 4 15-29 Severe decrease of GFR. Stage 5 <15 Kidney failure or on dialysis. Performed By: #### 1 [id number] #### [facility] [address] [place] [address] Glucose mass conc 74 mg/dL Normal 70-100 [facility] Comment on above: Performed By: #### 1 [id number] #### [facility] [address] [place] [address] HCO3 molar conc (Bld) 26 mmol/L Normal 21-[address] [facility] Comment on above: Performed By: #### 1 [id number] #### [facility] [address] [place] [address] Potassium molar conc 3.6 mmol/L Normal 3.5-5.[address] [facility] Comment on above: Performed By: #### 1 [id number] #### [facility] [address] [place] [address] Sodium molar conc 139 mmol/L Normal 136-145 [facility] Comment on above: Performed By: #### 1 [id number] #### [facility] [address] [place] [address] Urea nitrogen mass conc 13 mg/dL Normal 6-[address] [facility] Comment on above: Performed By: #### 1 [id number] #### [facility] [address] [place] [address] Urea nitrogen/Creatinine mass ratio 16 mg/mg Normal 5-25 [facility] Healthcare Comment on above: Performed By: #### 1 [id number] #### [facility] [address] [place] [address] CBCon 12-15-2018 Erythrocyte distribution width Ratio (RBC) 12.6 % Normal 12.0-15.[address] [facility] Comment on above: Performed By: #### 2 [id number] #### [facility] [address] [place] [address] Hematocrit Volume Fraction (Bld) 43.4 % Normal 36.5-46.6 [facility] Healthcare Comment on above: Performed By: #### 2 [id number] #### [facility] [address] [place] [address] Hemoglobin mass conc (Bld) 14.2 g/dL Normal 11.8-15.[address] [facility] Comment on above: Performed By: #### 2 [id number] #### [facility] [address] [place] [address] MCH Entitic mass (RBC) 30.3 pg Normal 27.5-33.0 [facility] Healthcare Comment on above: Performed By: #### 2 [id number] #### [facility] [address] [place] [address] MCHC mass conc (RBC) 32.7 g/dL Normal 30.1-35.[address] [facility] Comment on above: Performed By: #### 2 [id number] #### [facility] [address] [place] [address] MCV Entitic volume (RBC) 92.5 fL Normal 85.4-100.0 [facility] Healthcare Comment on above: Performed By: #### 2 [id number] #### [facility] [address] [place] [address] NRBC Absolute 0.00 10*3/uL Normal [facility] Comment on above: Performed By: #### 2 [id number] #### [facility] [address] [place] [address] NRBC Automated 0.0 /100{WBCs} Normal [facility] Comment on above: Performed By: #### 2 [id number] #### [facility] [address] [place] [address] Platelet mean volume Entitic volume (Bld) 10.9 fL Normal 9.9-12.1 [facility] Comment on above: Performed By: #### 2 [id number] #### [facility] [address] [place] [address] Platelets #/vol (Bld) 199 10*3/uL Normal 155-404 [facility] Comment on above: Performed By: #### 2 [id number] #### [facility] [address] [place] [address] RBC #/vol (Bld) 4.69 10*6/uL Normal 3.85-5.10 [facility] Comment on above: Performed By: #### 2 [id number] #### [facility] [address] [place] [address] RDW SD 42.5 fL Normal 39.3-48.6 [facility] Comment on above: Performed By: #### 2 048792 #### [facility] [address] [place] [address] WBC #/vol (Bld) 8.4 10*3/uL Normal 4.4-9.9 [facility] Comment on above: Performed By: #### 2 022623 #### [facility] [address] [place] [address] Test (Serum)on Test, Serum Negative Normal [facility] Comment on above: Performed By: #### 3 [id number] #### [facility] [address] [place] [address] CBC With Differentialon 04-12 Basophils #/vol (Bld) 0.05 10*3/uL Normal 0.01-0.07 [facility] Comment on above: Performed By: #### 2 [id number] #### [facility] [address] [place] [address] Basophils/100 WBC (Bld) 0.5 % Normal 0.1-1.2 [facility] Comment on above: Performed By: #### 2 000053 #### [facility] [address] [place] [address] Eosinophils #/vol (Bld) 0.38 10*3/uL Normal 0.04-0.50 [facility] Comment on above: Performed By: #### 2 [id number] #### [facility] [address] [place] [address] Eosinophils/100 WBC (Bld) 3.7 % Normal 0.0-8.1 [facility] Healthcare Comment on above: Performed By: #### 2 [id number] #### [facility] [address] [place] [address] Erythrocyte distribution width Ratio (RBC) 12.3 % Normal 12.0-15.4 [facility] Healthcare Comment on above: Performed By: #### 2 [id number] #### [facility] [address] [place] [address] Hematocrit Volume Fraction (Bld) 44.6 % Normal 36.5-46.6 [facility] Healthcare Comment on above: Performed By: #### 2 [id number] #### [facility] [address] [place] [address] Hemoglobin mass conc (Bld) 14.8 g/dL Normal 11.8-15.3 [facility] Healthcare Comment on above: Performed By: #### 2 594868 #### [facility] [address] [place] [address] Imm Grans Absolute 0.03 10*3/uL Normal 0.00-0.21 [facility] Comment on above: Performed By: #### 2 657193 #### [facility] [address] [place] [address] Immature granulocytes #/vol (Bld) 0.3 % Normal [facility] Comment on above: Performed By: #### 2 132554 #### [facility] [address] [place] [address] Lymphocytes #/vol (Bld) 2.31 10*3/uL Normal 0.40-2.84 [facility] Comment on above: Performed By: #### 2 593949 #### [facility] [address] [place] [address] Lymphocytes/100 WBC (Bld) 22.6 % Normal 15.7-50.5 [facility] Comment on above: Performed By: #### 2 670951 #### [facility] [address] [place] [address] MCH Entitic mass (RBC) 31.1 pg Normal 27.5-33.0 [facility] Healthcare Comment on above: Performed By: #### 2 456621 #### [facility] [address] [place] [address] MCHC mass conc (RBC) 33.2 g/dL Normal 30.1-35.0 [facility] Comment on above: Performed By: #### 2 [id number] #### [facility] [address] [place] [address] MCV Entitic volume (RBC) 93.7 fL Normal 85.4-100.0 [facility] Healthcare Comment on above: Performed By: #### 2 484312 #### [facility] [address] [place] [address] Monocytes #/vol (Bld) 0.63 10*3/uL Normal 0.25-0.83 [facility] Comment on above: Performed By: #### 2 585681 #### [facility] [address] [place] [address] Monocytes/100 WBC (Bld) 6.2 % Normal 4.8-12.7 [facility] Healthcare Comment on above: Performed By: #### 2 669140 #### [facility] [address] [place] [address] Neutrophils Absolute 6.84 10*3/uL Normal 1.95-6.85 [facility] Comment on above: Performed By: #### 2 464221 #### [facility] [address] [place] [address] Neutrophils/100 WBC (Bld) 66.7 % Normal 36.8-73.2 [facility] Healthcare Comment on above: Performed By: #### 2 [id number] #### [facility] [address] [place] [address] NRBC Absolute 0.00 10*3/uL Normal [facility]care Comment on above: Performed By: #### 2 [id number] #### [facility] [address] [place] [address] NRBC Automated 0.0 /100{WBCs} Normal Pending sale to [facility] Comment on above: Performed By: #### 2 [id number] #### [facility] [address] [place] [address] Platelet mean volume Entitic volume (Bld) 11.6 fL Normal 9.9-12.1 [facility] Healthcare Comment on above: Performed By: #### 2 285942 #### [facility] [address] [place] [address] Platelets #/vol (Bld) 184 10*3/uL Normal 155-[address] [facility] Comment on above: Performed By: #### 2 397090 #### [facility] [address] [place] [address] RBC #/vol (Bld) 4.76 10*6/uL Normal 3.85-5.10 [facility] [facility] Comment on above: Performed By: #### 2 [id number] #### [facility] [address] [place] [address] RDW SD 42.5 fL Normal 39.3-48.6 [facility] Healthcare Comment on above: Performed By: #### 2 [id number] #### [facility] [address] [place] [address] WBC #/vol (Bld) 10.2 10*3/uL High 4.4-9.9 [facility] Comment on above: Performed By: #### 2 [id number] #### [facility] [address] [place] [address] Comprehensive Metabolic Pane gisela 05-05-2018 Albumin mass conc 4.5 g/dL Normal 3.4-5.0 [facility] Comment on above: Performed By: #### 1 [id number] #### [facility] [address] [place] [address] Albumin/Globulin mass ratio 1.7 {ratio} Normal 0.9-2.4 [facility] Healthcare Comment on above: Performed By: #### 1 [id number] #### [facility] [address] [place] [address] ALP enzyme act/vol 80 U/L Normal 45-117 [facility] Comment on above: Performed By: #### 1 [id number] #### [facility] [address] [place] [address] ALT enzyme act/vol 37 U/L Normal 7-45 [facility] Comment on above: Performed By: #### 1 [id number] #### [facility] [address] [place] [address] Anion gap molar conc 13 mmol/L Normal 10-20 [facility] Healthcare Comment on above: Performed By: #### 1 [id number] #### [facility] [address] [place] [address] AST enzyme act/vol 26 U/L Normal 13-39 [facility] Comment on above: Performed By: #### 1 [id number] #### [facility] [address] [place] [address] Bilirubin mass conc 0.6 mg/dL Normal 0.0-1.2 [facility] Comment on above: Performed By: #### 1 [id number] #### [facility] [address] [place] [address] Calcium mass conc 9.6 mg/dL Normal 8.6-10.3 [facility] Comment on above: Performed By: #### 1 [id number] #### [facility] [address] [place] [address] Chloride molar conc 105 mmol/L Normal 98-107 [facility] Comment on above: Performed By: #### 1 [id number] #### [facility] [address] [place] [address] Creatinine mass conc 0.95 mg/dL Normal 0.50-1.[address] [facility] Comment on above: Performed By: #### 1 [id number] #### [facility] [address] [place] [address] GFR/1.73 sq M.predicted MDRD vol rate/area mL/min/{1.73_m2} Normal [facility] Comment on above: Result Comment: Inte rpretation for Chronic Kidney Disease: Stages 1&2 >60 Healthy or potential kidney damage. Mild decrease of GFR. Stage 3 30-59 Moderate decrease of GFR. Stage 4 15-29 Severe decrease of GFR. Stage 5 <15 Kidney failure or on dialysis. Performed By: #### 1 [id number] #### [facility] [address] [place] [address] Glucose mass conc 78 mg/dL Normal 70-100 [facility] Comment on above: Performed By: #### 1 [id number] #### [facility] [address] [place] [address] HCO3 molar conc (Bld) 26 mmol/L Normal 21-[address] [facility] Comment on above: Performed By: #### 1 [id number] #### [facility] [address] [place] [address] Potassium molar conc 3.6 mmol/L Normal 3.5-5.[address] [facility] Comment on above: Performed By: #### 1 [id number] #### [facility] [address] [place] [address] Protein mass conc 7.1 g/dL Normal 6.4-8.2 [facility] Comment on above: Performed By: #### 1 [id number] #### [facility] [address] [place] [address] Sodium molar conc 140 mmol/L Normal 136-145 [facility] Comment on above: Performed By: #### 1 [id number] #### [facility] [address] [place] [address] Urea nitrogen mass conc 10 mg/dL Normal 6-23 [facility] Comment on above: Performed By: #### 1 [id number] #### [facility] [address] [place] [address] Urea nitrogen/Creatinine mass ratio 11 mg/mg Normal 5-25 [facility] Comment on above: Performed By: #### 1 [id number] #### [facility] [address] [place] [address] ESR, Westergrenon 05-05-2018 ESR, Westergren 2 mm/h Normal 0-20 [facility] Comment on above: Performed By: #### 2 [id number] #### [facility] [address] [place] [address] Lipid Panelon 05-05-2018 Cholesterol in HDL mass conc 35 mg/dL Abnormal [facility] Comment on above: Result Comment: Age Normal Mod Risk High Risk 5-9 >46 38-46 <38 10-14 >44 40-44 <40 15-19 >42 38-42 <38 Adult >49 Performed By: #### 1 [id number] #### [facility] [address] [place] [address] Cholesterol in LDL mass conc 100 mg/dL Normal <130 [facility] Comment on above: Performed By: #### 1 [id number] #### [facility] [address] [place] [address] Cholesterol in VLDL mass conc 72 mg/dL Abnormal <30 [facility] Comment on above: Performed By: #### 1 [id number] #### [facility] [address] [place] [address] Cholesterol mass conc 207 mg/dL Abnormal <200 [facility] Comment on above: Performed By: #### 1 [id number] #### [facility] [address] [place] [address] Cholesterol.total/C holesterol in HDL mass ratio 5.9 {ratio} Normal [facility] Comment on above: Performed By: #### 1 [id number] #### [facility] [address] [place] [address] Triglyceride mass conc 361 mg/dL Abnormal <150 [facility] Healthcare Comment on above: Result Comment: 150- 199 Borderline High 200-499 High >500 Very High Performed By: #### 1 [id number] #### [facility] [address] [place] [address] TSHon 05-05-2018 Thyrotropin Qn 1.75 mU/L Normal 0.44-3.98 [facility] Health care Comment on above: Performed By: #### 1 [id number] #### [facility] [address] [place] [address] Vitamin D, 25 Hydroxyon 04-12 Vitamin D, 25 Hydroxy 23 ng/mL Abnormal [facility] Comment on above: Result Comment: DEFI CIENCY <20 INSUFFICIENCY 20-29 OPTIMUM LEVEL 30-80 POSSIBLE TOXICITY >80 Performed By: #### V ITD #### [facility] [address] [place] [address] SPINE CERVICAL MIN 4 VIEWSon 05-03-2018 SPINE CERVICAL MIN 4 VIEWS DATE OF EXAM: May 03 2018 12:05PM CLINICAL HISTORY/ Patient Name: BOO BO STUDY: SPINE CERVICAL MIN 4 VIEWS; 05/03/2018 12:05 pm INDICATION: NECK PAIN. COMPARISON: None. ACCESSION NUMBER(S): [id number] ORDERING CLINICIAN: NATE HERRON FINDINGS: The vertebral alignment is maintained and the vertebra are normal in height. The discs are maintained in height. The prevertebral soft tissues are not thickened. The posterior elements are intact. CONCLUSION: IMPRESSION: Negative Normal [facility] Vital Signs Date Time Vital Sign Value Performing Clinician Facility 12-04-2022 09:10-0500 Body height 170.18 cm Annette Strickland Other [facility] Other 12-04-2022 09:10-0500 Body mass index (BMI) [Ratio] 46.98 kg/m2 Annette Strickland Other [facility] Other 12-04-2022 09:10-0500 Body temperature 98.7 [degF] Annette Strickland Other [facility] Other 12-04-2022 09:10-0500 Body weight 136.08 kg Annette Strickland Other [facility] Other 12-04-2022 09:10-0500 Diastolic blood pressure 78 mm[Hg] Annette Strickland Other [facility] Other 12-04-2022 09:10-0500 Respiratory rate 18 /min Annette Strickland Other [facility] Other 12-04-2022 09:10-0500 SaO2% (BldA) [Mass fraction] 97 % Annette Strickland Other [facility] Other 12-04-2022 09:10-0500 Systolic blood pressure 127 mm[Hg] Annette Strickland Other [facility] Other 08-06-2022 10:05-0400 Body height 170.18 cm Liliana Shelbie Other [facility] Other 08-06-2022 10:05-0400 Body mass index (BMI) [Ratio] 46.98 kg/m2 Liliana Shelbie Other [facility] Other 08-06-2022 10:05-0400 Body temperature 97.8 [degF] Liliana Shelbie Other [facility] Other 08-06-2022 10:05-0400 Body weight 136.08 kg Liliana Shelbie Other [facility] Other 08-06-2022 10:05-0400 Diastolic blood pressure 89 mm[Hg] Liliana Morfin Other [facility] Other 08-06-2022 10:05-0400 Respiratory rate 18 /min Liliana Morfin Other [facility] Other 08-06-2022 10:05-0400 SaO2% (BldA) [Mass fraction] 97 % Liliana Morfin Other [facility] Other 08-06-2022 10:05-0400 Systolic blood pressure 146 mm[Hg] Liliana Morfin Other [facility] Other 03-16-2022 14:15-0400 Body height 170.18 cm Annette Navarroault Other [facility] Other 03-16-2022 14:15-0400 Body mass index (BMI) [Ratio] 47.29 kg/m2 Annette Navarroault Other [facility] Other 03-16-2022 14:15-0400 Body temperature 97.7 [degF] Annette Navarroault Other [facility] Other 03-16-2022 14:15-0400 Body weight 136.99 kg Annette Navarroault Other [facility] Other 03-16-2022 14:15-0400 Diastolic blood pressure 85 mm[Hg] Annette Homer Other [facility] Other 03-16-2022 14:15-0400 Respiratory rate 18 /min Annette Homer Other [facility] Other 03-16-2022 14:15-0400 SaO2% (BldA) [Mass fraction] 99 % Annette Strickland Other [facility] Other 03-16-2022 14:15-0400 Systolic blood pressure 136 mm[Hg] Annette Strickland Other [facility] Other 09-29-2021 10:45-0500 Body height 170.18 cm Annette Strickland Other [facility] Other 09-29-2021 10:45-0500 Body mass index (BMI) [Ratio] 46.82 kg/m2 Annette Strickland Other [facility] Other 09-29-2021 10:45-0500 Body temperature 98.9 [degF] Annette Strickland Other [facility] Other 09-29-2021 10:45-0500 Body weight 135.63 kg Annette Strickland Other [facility] Other 09-29-2021 10:45-0500 Respiratory rate 18 /min Annette Strickland Other [facility] Other 09-29-2021 10:45-0500 SaO2% (BldA) [Mass fraction] 97 % Annette Strickland Other [facility] Other 09-15-2021 12:10-0500 Body height 170.18 cm Linda Baires Other [facility] Other 09-15-2021 12:10-0500 Body mass index (BMI) [Ratio] 47.14 kg/m2 Linda Brandeenty Other [facility] Other 09-15-2021 12:10-0500 Body temperature 98.1 [degF] Linda Ginty Other [facility] Other 09-15-2021 12:10-0500 Body weight 136.53 kg Linda Ginty Other [facility] Other 09-15-2021 12:10-0500 Diastolic blood pressure 68 mm[Hg] Linda Ginty Other [facility] Other 09-15-2021 12:10-0500 Respiratory rate 18 /min Linda Ginty Other [facility] Other 09-15-2021 12:10-0500 SaO2% (BldA) [Mass fraction] 98 % Linda Ginty Other [facility] Other 09-15-2021 12:10-0500 Systolic blood pressure 138 mm[Hg] Linda Ginty Other [facility] Other 09-28-2020 10:15-0500 BP Diastolic 86 mm[Hg] [facility] [place] 09-28-2020 10:15-0500 BP Systolic 125 mm[Hg] [facility] [place] 09-28-2020 10:15-0500 Pulse (Heart Rate) 72 /min [facility] [place], [place] 09-28-2020 10:15-0500 Respiratory Rate 16 /min [facility], [place] 09-28-2020 09:59-0500 Body Temperature 97.5 [degF] [facility], [place] 09-28-2020 09:59-0500 Pulse Oximetry 96 % [facility], [place] 09-28-2020 08:10-0500 BMI (Body Mass Index) 49.72 kg/m2 [facility] 09-28-2020 08:10-0500 Body weight 144 kg [facility] 09-28-2020 08:10-0500 Height 170.2 cm [facility] En[facility] Encounter Date Encounter Type Care Provider Facility Start: 03-09-2024 End: 03-10-2024 [facility] Start: 02-29-2024 End: 02-29-2024 ambulatory WILL LUKE Not Available Start: 02-29-2024 End: 02-29-2024 ambulatory MD Kota Reina Work Phone: [facility] Work Phone: Start: 02-29-2024 End: 02-29-2024 Departed Referred MD Kota Reina Work Phone: [facility] Start: 02-05-2024 End: 02-06-2024 ambulatory LAKEISHA ALAN [facility] Start: 01-26-2024 End: 01-27-2024 ambulatory FORTUNATO Kirkpatrick [facility] Start: 01-11-2024 End: 01-11-2024 [facility] Start: 01-05-2024 End: 01-05-2024 ambulatory LAKEISHA AICHHOLZ Not Available Start: 12-29-2023 End: 12-29-2023 ambulatory WILL LUKE Not Available Start: 12-03-2023 End: 12-03-2023 ambulatory LAKEISHA AICHHOLZ Not Available Start: 10-01-2023 End: 10-01-2023 ambulatory LAKEISHA AICHHOLZ Not Available Start: 01-22-2023 End: 01-23-2023 ambulatory [employer] LAKEISHA AICHHOLZ Facility:[facility]1 Start: 12-18-2022 End: 12-19-2022 ambulatory [employer] LAKEISHA AICHHOLZ Facility:[facility]1 Start: 12-04-2022 End: 12-04-2022 ambulatory Annette Homer Other [facility] Other Start: 12-04-2022 Office outpatient vi sit 25 minutes Annette Homer [facility] Start: 10-28-2022 End: 10-29-2022 ambulatory ALICIA ALAN Facility:[facility] Start: 08-06-2022 End: 08-06-2022 ambulatory Liliana Jollymond Other [facility] Other Start: 08-06-2022 Office outpatient vi sit 15 minutes Liliana Shelbie [facility] Start: 07-18-2022 End: 07-19-2022 ambulatory ALICIA ALAN Facility:[facility] Start: 07-14-2022 End: 07-15-2022 ambulatory ALICIA ALAN Facility:[facility] Start: 05-07-2022 End: 05-08-2022 ambulatory [employer] LAKEISHA ALAN Facility:[facility]1 Start: 04-23-2022 End: 04-24-2022 ambulatory [employer] LAKEISHA ALAN Facility:[facility]1 Start: 04-11-2022 Encounter for genera l adult medical examination without abnormal findings ALICIA ALAN [facility] Start: 04-08-2022 End: 04-09-2022 ambulatory ALICIA ALAN Facility:[facility] Start: 04-08-2022 End: 04-09-2022 Encounter for general adult medical examination without abnormal findings ALICIA ALAN Facility:[facility]1 Start: 03-16-2022 End: 03-16-2022 ambulatory Annette Homer Other [facility] Other Start: 03-16-2022 Office outpatient vi sit 15 minutes Annette Homer [facility] Start: 03-15-2022 End: 03-16-2022 ambulatory [employer] LAKEISHA ALAN Facility:[facility]1 Start: 09-29-2021 End: 09-29-2021 ambulatory Annette Homer Other [facility] Other Start: 09-29-2021 Office outpatient vi sit 15 minutes Annette Strickland [facility] Start: 09-15-2021 End: 09-15-2021 ambulatory Linda Ginty Other [facility] Other Start: 09-15-2021 Office outpatient vi sit 25 minutes Linda Ginty [facility] Start: 09-28-2020 End: 09-28-2020 Patient encounter procedure FORTUNATO URIOSTEGUI [facility] Start: 09-28-2020 End: 09-28-2020 Subsequent hospital visit by physician Fortunato Uriostegui Work Phone: [facility] [place] Start: 09-24-2020 End: 09-28-2020 Subsequent hospital visit by physician Kristian Covjesus19 Pat Screening Schedule [facility] PRE ADMIT Comment on above: Preoperative testing Start: 07-09-2020 End: 07-13-2020 Subsequent hospital visit by physician [facility] Covid19 Pat Screening Schedule [facility] Laboratory Comment on above: Current nicotine use ; Essential hypertension; QUITA (obstructive sleep apnea); Arthritis; Anxiety and depression; Gastroesophageal reflux disease without esophagitis; Obesity, Class III, BMI 40-49.9 (morbid obesity) ([facility]); Fibromyalgia Preop testing Start: 04-18-2020 End: 04-18-2020 Subsequent hospital visit by physician [facility] Lab Drawing Room [facility] Laboratory Comment on above: Essential hypertensi on; QUITA (obstructive sleep apnea); Arthritis; Anxiety and depression; Gastroesophageal reflux disease without esophagitis; Obesity, Class III, BMI 40-49.9 (morbid obesity) (HCC); Fibromyalgia; Obstructive sleep apnea; Morbid obesity with BMI of 45.0-49.9, adult (HCC) Start: 12-17-2018 End: 12-17-2018 Patient encounter procedure LETICIA RILEY Facility:[facility] Start: 12-15-2018 Patient encounter procedure LETICIA RILEY Facility:7 Start: 06-01-2018 Patient encounter procedure NATE HERRON Facility:[facility] Start: 05-05-2018 Patient encounter procedure NATE HERRON Facility:[id number] Start: 05-03-2018 Patient encounter procedure NATE MURPHYICHANDRAN Facility:[id number] Start: 05-03-2018 Patient encounter Sam Momin [...] Start: 04-18-2020 Assay of parathormone G jj rUiostegui Work Phone: Start: 04-18-2020 Assay of thyroid [...] Author Start: 04-18-2021 Creatinine measurement Creatinine monitoring [facility], [place] Start: 04-18-2021 Potassium monitoring Potassium monitoring [facility] Start: 11-21-2020 End: 11-21-2020 Office Visit 11/21/2020 Office Visit Fortunato Ramos DO [address] [facility] [address] [place] [phone] [facility] Start: 10-24-2020 End: 10-24-2020 Office Visit 10/24/2020 Office Visit BariatricMaya Padilla, HOTEL MAINTENANCE WORKER - [employer] [address] [place] [phone] [facility] Start: 08-22-2020 End: 08-22-2020 Office Visit 08/22/2020 Office Visit Maya Lawrence, HOTEL MAINTENANCE WORKER - [employer] [address] [place] [phone] [facility] Start: 08-16-2020 End: 08-16-2020 Nurse Only 08/16/2020 Nurse Only Bariatrics [facility] Invasive Bariatric Surg Start: 07-25-2020 End: 07-25-2020 Office Visit 07/25/2020 Office Visit BariatricMaya Padilla, HOTEL MAINTENANCE WORKER - CARPET SE[employer]ER [address] [place] [phone] [facility] Start: 07-13-2020 End: 07-13-2020 Hospital Encounter [facility] [place] Comment on above: EGD ESOPHAGOGASTRODUODENOSCOPY Start: 07-12-2020 End: 07-12-2020 Nurse Only 07/12/2020 [facility] Start: 06-20-2020 End: 06-20-2020 Office Visit 06/20/2020 Office Visit Bariatrics Maya Garcia, HOTEL MAINTENANCE WORKER - [employer]ER [address] [place] [phone] [facility] Start: 06-12-2020 Influenza vaccination Flu vaccine (#1) [place], [place] Start: 05-23-2020 End: 05-23-2020 Office Visit 05/23/2020 Office Visit Bariatrics Fortunato Uriostegui, DO [address] [facility] [address] [place] [address] [facility] Start: 2008 Screening for malignant neoplasm of cervix Cervical cancer screen [place], [place] Start: 2006 DTaP/Tdap/Td vaccine (1 - Tdap) DTaP/Tdap/Td vaccine (1 - Tdap) [place] Start: 2002 HIV screening HIV screen [place] Start: 1993 Pneumococcal 0-64 years Vaccine (1 of 1 - PPSV23) Pneumococcal 0-64 years Vaccine (1 of 1 - PPSV23) [place], [place] Start: 1988 Varicella vaccine (1 of 2 - 2-dose childhood series) Varicella vaccine (1 of 2 - 2-dose childhood series) [place] Start: 1987 Creatinine measurement Creatinine monitoring [place] Start: 1987 Potassium monitoring Potassium monitoring [place] End: 04-18-2020 Nicotine, Blood Nicotine, Blood Lab Routine Essential hypertension QUITA (obstructive sleep apnea) Arthritis Anxiety and depression Gastroesophageal reflux disease without esophagitis Obesity, Class III, BMI 40-49.9 (morbid obesity) ([facility]) Fibromyalgia 1 Occurrences starting 04/18/2020 until 04/18/2020 [place] Comment on above: 1 Occurrences starting 04/18/2020 until 04/18/2020 Nicotine, Blood [place] End: 07-09-2020 Nicotine, Blood Nicotine, Blood Lab Routine Current nicotine use 1 Occurrences starting 07/09/2020 until 07/09/2020 [place] Comment on above: 1 Occurrences starting 07/09/2020 until 07/09/2020 Oxygen therapy [Minimum Data Set ] Initiate Oxygen Therapy Protocol Respiratory Care Routine Daily until discontinued starting 09/28/2020 [place] Comment on above: Daily until discontinued starting 2019 Surgical Pathology Surgical Path ology Lab Routine Release Upon Ordering for 1 Occurrences starting 09/28/2020 [place] Comment on above: Release Upon Ordering for 1 Occurrences starting 09/28/2020 End: 04-18-2020 Vitamin A Vitamin A Lab Routine Obstructive sleep apnea Morbid obesity with BMI of 45.0-49.9, adult ([facility]) 1 Occurrences starting 04/18/2020 until 04/18/2020 [place] Comment on above: 1 Occurrences starting 04/18/2020 until 04/18/2020 Vitamin A Vitamin A Lab Ro utine Obstructive sleep apnea Morbid obesity with BMI of 45.0-49.9, adult ([facility]) 04/18/2020 10:16 AM EDT [place] End: 04-18-2020 Vitamin B1 Vitamin B1 Lab Routine Obstructive sleep apnea Morbid obesity with BMI of 45.0-49.9, adult ([facility]) 1 Occurrences starting 04/18/2020 until 04/18/2020 [place] Comment on above: 1 Occurrences starting 04/18/2020 until 04/18/2020 Vitamin B1 Vitamin B1 Lab R outine Obstructive sleep apnea Morbid obesity with BMI of 45.0-49.9, adult ([facility]) 04/18/2020 10:16 AM EDT [place] End: 04-18-2020 Zinc Zinc Lab Routine Obstructive sleep apnea Morbid obesity with BMI of 45.0-49.9, adult ([facility]) 1 Occurrences starting 04/18/2020 until 04/18/2020 [place] Comment on above: 1 Occurrences starting 04/18/2020 until 04/18/2020 Zinc Zinc Lab Routine Obstructive sleep apnea Morbid obesity with BMI of 45.0-49.9, adult ([facility]) 04/18/2020 10:16 AM EDT [facility] [place] Payers Date Payer Category Payer Self-pay [id number] 2020 Unknown [facility] xxxxxxxxxxx 2020-Present [phone] CLAIMS DEPARTMENT [address] [place] [address] xxxxxxxxxxx [id number] 1987 Unknown [id number] 2.16.840.1.667189.3.579.2.355 1987 Unknown [id number] 2.16.840.1.261767.3.579.2.355 1987 Unknown [id number] 2.16.840.1.165081.3.579.2.355 1987 Unknown [id number] 2.16.840.1.636584.3.579.2.355 1987 Unknown [id number] 2.16.840.1.976849.3.579.2.355 1987 Unknown [id number] 2.16.840.1.012279.3.579.2.175 1987 Unknown [id number] 2.16.840.1.155728.3.579.2.593 1987 Unknown [id number] 2.16.840.1.413550.3.579.2.593 1987 Unknown [id number] 2.16.840.1.890614.3.579.2.593 1987 Unknown [id number] 2.16.840.1.505943.3.579.2.593 1987 Unknown [id number] 2.16.840.1.138284.3.579.2.593 1987 Unknown [id number] 2.16.840.1.219225.3.579.2.593 1987 Unknown [id number] 2.16.840.1.713493.3.579.2.593 1987 Unknown [id number] 2.16.840.1.328340.3.579.2.593 1987 Unknown [id number] 2.16.840.1.645796.3.579.2.593 1987 Unknown [id number] 2.16.840.1.452772.3.579.2.177 1987 Unknown [id number] 2.16.840.1.577516.3.579.2.1259 1987 Unknown [id number] 2.16.840.1.729396.3.579.2.1259 1987 Unknown [id number] 2.16.840.1.788982.3.579.2.1259 1987 Unknown [id number] 2.16.840.1.238132.3.579.2.1259 1987 Unknown [id number] 2.16.840.1.712597.3.579.2.1259 1987 Unknown [id number] 2.16.840.1.733591.3.579.2.173 1987 Unknown [id number] 2.16.840.1.570212.3.579.2.173 1959 Unknown [id number] 1959 Unknown [id number] 2.16.840.1.942001.19 Unknown [id number] 2.16.840.1.856995.3.579.2.531 Social History Date Type Detail Facility Tobacco smoking stat [facility] Unknown if ever smoked [facility] Start: 1987 Sex Assigned At Female [facility] Start: 04-18-2020 End: 06-20-2020 Tobacco [...] [place] Start: 09-28-2020 Tobacco smoking stat us WIIS Former smoker JEROMY Fracne Start: 02-10-2018 End: 07-21-2020 History of tobacco use Current smoker JEROMY [place] Start: 09-28-2020 Cigarettes smoked current (pack per day) - Reported JEROMY [place] Start: 09-25-2020 Alcohol Comment RARELY JEROMY Lafleur Exposure to SARS-CoV -2 (event) Not sure JEROMY [place] Sex Assigned At Sex Assigned At Bir [facility] Other Goals Date Patient Goal Desired Activity [...] or concerns. Dago Mccullough MD Interventional Cardiology [place] Evaluation note 12-04-2022 Note Date & Type [...] should improve within the next 4-7 days. [facility] Other Evaluation note 08-06-2022 Note Date & [...] no improvement in 2 to 3 days [facility] Other Evaluation note 03-16-2022 Note Date & [...] if symptoms worsen or new symptoms occur. [facility] Other Evaluation note 09-29-2021 Note Date & [...] Patient care instructions given in writting by [facility] Care At Home document. [facility] Other Evaluation note 09-15-2021 Note Date & [...] inside ear after shower may use hair sample matcher on lowest cool setting to blow dry. Follow up with PCP or UC if no improvement in the next 2-3 days. Immediate eval for severe ear pain, severe headache, neck pain/stiffness, pain, erythema, or redness behind the ear, fever, N/V, hearing loss, fever, lethargy, or any other new or concerning symptoms. Patient verbalizes understanding and is agreeable to treatment plan [facility] Other Evaluation note Note Date & Type Note Facility Evaluation note No assessment information availa [facility] Work Phone: History general Narrative - Reported Note Date & Type Note Facility History general Narrative - Reported Type Medical History anxiety Medical History bipolar Medical History hypertension Surgical History bunion surgery 9 yrs Surgical History bunion surgery 12 years Surgical History clogged tear duct 2 years Surgical History laparoscopy Surgical History heart catheterization Hospitalization History pneumonia 18 mos [facility] Other History general Narrative - Reported Note Date & Type Note Facility History general Narrative - Reported Type Medical History anxiety Medical History bipolar Medical History hypertension Medical History hypocalcemia Surgical History bunion surgery 9 yrs Surgical History bunion surgery 12 years Surgical History clogged tear duct 2 years Surgical History laparoscopy Surgical History heart catheterization Hospitalization History pneumonia 18 mos [facility] Other Summary Purpose Family History No Family [...] FoundDocuments on File Type Date Recorded Patient Staff Veterinarian Expl anation Advance Directives and Living Will Power of Glaze Sprayer Documents on File Type Date Recorded Patient Staff Veterinarian Expl anation ACP-Advance Directive ACP-Power of Glaze Sprayer Documents on File Type Date Recorded Patient Staff Veterinarian Expl anation ACP-Advance Directive ACP-Power of Glaze Sprayer Advance Directive Response Recorded Date/ Time Advance Directives No March 01 11:29am Assessments Diagnosis Essential hypertension Unspecified essential hypertension QUITA (obstructive sleep apnea) Obstructive sleep apnea (adult) (pediatric) Arthritis Arthropathy, unspecified, site unspecified Anxiety and depression Dysthymic disorder Gastroesophageal reflux disease without esophagitis Esophageal reflux Obesity, Class III, BMI 40-49.9 (morbid obesity) ([facility]) Morbid obesity Fibromyalgia Mylagia and myositis, unspecified Obstructive sleep apnea Obstructive sleep apnea (adult) (pediatric) Morbid obesity with BMI of 45.0-49.9, adult ([facility]) Diagnosis Current nicotine use Essential hypertension Unspecified essential hypertension QUITA (obstructive sleep apnea) Obstructive sleep apnea (adult) (pediatric) Arthritis Arthropathy, unspecified, site unspecified Anxiety and depression Dysthymic disorder Gastroesophageal reflux disease without esophagitis Esophageal reflux Obesity, Class III, BMI 40-49.9 (morbid obesity) ([facility]) Morbid obesity Fibromyalgia Mylagia and myositis, unspecified [...] questions, PLEASE call your doctor or the [facility] center at No alcoholic beverages, [...] section and content) DATE CREATED AUTHOR 05/05/2018 [facility] DATE CREATED AUTHOR AUTHOR'S ORGANIZ ATION 12/23/[address] [facility] DATE CREATED AUTHOR AUTHOR'S ORGANIZ ATION 12/03/2020 [facility] DATE CREATED AUTHOR AUTHOR'S ORGANIZ ATION 04/29/2021 [facility] DATE CREATED AUTHOR AUTHOR'S ORGANIZ ATION 01/25/2023 [facility] DATE CREATED AUTHOR AUTHOR'S ORGANIZ ATION 02/09/2024 [facility] DATE CREATED AUTHOR AUTHOR'S ORGANIZ ATION 03/01/2024 [facility] DATE CREATED AUTHOR AUTHOR'S ORGANIZ ATION 03/06/2024 [facility] DATE CREATED AUTHOR AUTHOR'S ORGANIZ ATION 03/11/2024 [facility] DATE CREATED AUTHOR AUTHOR'S ORGANIZ ATION 03/18/2024 [facility] Reason for Visit (unrecogniz ed section and content) Status Reason Specialty Diagnoses / Procedures Re ferred By Contact Referred To Contact Diagnoses GERD (gastroesophageal reflux disease) Obesity GERD, OBESITY Procedures RI ESOPHAGOGASTRODUODENOSCOPY TRANSORAL DIAGNOSTIC EGD ESOPHAGOGASTRODUODENOSCOPY- GI UNIT SCHEDULED Fortunato Uriostegui DO [address] [facility] [address] [place] [address] [facility] Ordered Prescriptions (unrec ognized section and [...] BE BASED ON THE PRIMARY CLINICAL RECORDS. [employer] provides no warranty or guarantee of the accuracy or completeness of information in this document.
[2024-03-30 06:38] LABS: Anion Gap 15.7; BUN Creatinine Ratio 15.6; Basophils Percent Auto 0.5 % (0.2-2.0); Calcium 8.5 mg/dL (8.5-10.1); Carbon Dioxide 24.9 mmol/L (21.0-32.0); Chloride 104 mmol/L (98-107); Eosinophils Absolute Auto 0.3 10^3/uL (0.0-0.7); Eosinophils Percent Auto 4.2 % (0.9-7.0); Estimated GFR (African America >60 (>=60); Estimated GFR (Non-African Ame >60 (>=60); Glucose 138 mg/dL (74-106); Hematocrit 38.3 % (36.0-48.0); Hemoglobin 12.9 g/dL (12.0-16.0); Immature Granulocytes Abs Auto 0.04 10^3/uL (0.00-0.03); Immature Granulocytes Pct Auto 0.5 % (0.0-0.5); Lymphocytes Absolute Auto 2.3 10^3/uL (1.2-3.8); Lymphocytes Percent Auto 29.4 % (20.5-60.0); Mean Corpuscular HGB Conc 33.7 g/dL (29.9-35.2); Mean Corpuscular Hemoglobin 29.9 pg (26.7-34.0); Mean Corpuscular Volume 88.7 fL (81.0-99.0); Mean Platelet Volume 10.4 fL (9.5-13.5); Monocytes Absolute Auto 0.6 10^3/uL (0.3-0.8); Monocytes Percent Auto 7.2 % (1.7-12.0); Neutrophils Absolute Auto 4.5 10^3/uL (1.4-6.5); Neutrophils Percent Auto 58.2 % (43.0-75.0); Platelet Count 217 10^3/uL (150-450); Potassium 3.6 mmol/L (3.5-5.1); Red Blood Count 4.32 10^6/uL (4.20-5.40); Red Cell Distribution Width 12.6 % (11.0-15.0); Sodium 141 mmol/L (136-145); White Blood Count 7.8 10^3/uL (4.0-11.0)
[2024-03-30 06:56] LABS: HCG Quantitative <1 mIU/mL
[2024-03-30] MEDS: CIPROFLOXACIN IN 5 % DEXTROSE 400 MG/200 ML PIGGYBACK 200 MG IV ×3 (07:04→18:08)
[2024-03-30] MEDS: LACTATED RINGER'S SOLUTION 1,000 ML 50 ML IV ×2 (07:05→10:08)
[2024-03-30] MEDS: METRONIDAZOLE/SODIUM CHLORIDE 500 MG/100 ML PREMIX 100 MG IV ×2 (07:21→15:01)
[2024-03-30] MEDS: SCOPOLAMINE 1 MG/3 DAYS TRANSDERM PATCH 1 PATCH TD (07:24)
[2024-03-30] MEDS: ALBUTEROL SULFATE 2.5 MG/3 ML VIAL NEB IH (07:30)
--- NOTE | 2024-03-30 11:29 | P.ON_ITS ---
Brief Operative Note Date of procedure: 03/30/24 Pre-op diagnosis general: aub, pelvic pain, dysmenorrhea, dyspareunia Post-op diagnosis: same as pre-op Procedure: NAME OF PROCEDURE: ? Robotic assisted laparoscopic hysterectomy with cystoscopy, bilateral salpingectomy PROCEDURE:? The patient was taken back to the operating room, where she was prepped and draped in the normal sterile fashion after being placed in the dorsal lithotomy position.? Patient?s anesthesia was found to be adequate.? Surgical timeout was performed using two patient identifiers.? SCDs were on and in place.? Two grams of Ancef were given prior to the surgery.? Sterile Gardiner catheter was inserted.? Standard size VCare was secured to the uterine cervix and the surgeon changed gloves.? Attention then was turned to the patient's abdomen, where a supraumbilical incision was then made.? Two S retractors were used to identify the patient?s fascia.? The fascia was then tented up using Erica clamps and the patient?s fascia was incised sharply.? Patient?s abdomen was identified and entered bluntly.? The patient had the trocar placed and a pneumoperitoneum was obtained.? Approximately 4 liters of CO2 gas was used.? The camera was then placed through the trocar.? At this time, two robot trocars were placed in the patient?s left and right side, two hand widths from the midline, and this was placed under direct visualization.? The patient?s tube on the right side was tented up and the vessel sealer was then used to come across the mesosalpinx, and this was carried down to the uterine ovarian ligament.? The vessel sealer was carried down serially to the broad ligament, to the area of the bladder flap, which was then created anteriorly, and the uterine arteries were skeletonized and sealed using the vessel sealer.? The colpotomy was made using the monopolar cautery on cut, and this was carried circumferentially, posteriorly to anteriorly, until the uterus was amputated.? The specimen was then removed intact through the vagina, without difficulty.? The vagina was then closed using two running V-Loc in a non-lock fashion.? The robot was undocked.? The abdomen was desufflated.? The skin defects were closed using 4-0 Vicryl.? Please note, the fascia was closed using 0 Vicryl.? Sponge, lap and needle counts were correct x2.? Patient was taken to recovery room in stable condition.? The patient was awakened by Anesthesia first.? Patient tolerated procedure well.?? Anesthesia: TORIBIO Surgeon: Will Mendoza Barrel Rifler Hook: Sarah Fenton Estimated blood loss (mL): 400 Pathology: other (uterus and tubes) Condition: stable Disposition: PACU Urinary Catheter Management Urinary Catheter Management Urethral: Cath placed during this visit: no
[2024-03-30] MEDS: OXYCODONE HCL/ACETAMINOPHEN 5MG/325MG 2 TAB PO ×2 (12:30→18:08)
--- NOTE | 2024-03-30 12:38 | PC.NURSE ---
GAVE PRN PAIN MEDS TO HELP WITH ARM PAIN. PAIN IS DUE TO TE POSITION THEY HAD HER IN TO DO THE PROCEDURE. ELEVATED BOTH ARMS ON PILLOWS
[2024-03-30] MEDS: LACTATED RINGER'S SOLUTION 1,000 ML 125 ML IV (13:12)
--- NOTE | 2024-03-30 18:51 | PC.NURSE ---
Adjunct Faculty checked patient abdomen dressings.. Site #1 and #2 has a small amount of drainage that went outside the previous marked area. They are still dry and intact. A small amount of drainage was then noted on site #3 and #4. The areas were marked. No redness or warmth noted to the abdomen.
[2024-03-31] MEDS: OXYCODONE HCL/ACETAMINOPHEN 5MG/325MG 2 TAB PO ×2 (00:13→06:16)
[2024-03-31] MEDS: LACTATED RINGER'S SOLUTION 1,000 ML 125 ML IV (01:56)
[2024-03-31 03:55] VITALS: BP 138/73; PULSE 92; TEMP 36.5; O2SAT 94
[2024-03-31 05:23] LABS: Basophils Percent Auto 0.1 % (0.2-2.0); Hematocrit 34.9 % (36.0-48.0); Hemoglobin 11.3 g/dL (12.0-16.0); Immature Granulocytes Abs Auto 0.08 10^3/uL (0.00-0.03); Immature Granulocytes Pct Auto 0.4 % (0.0-0.5); Lymphocytes Percent Auto 5.3 % (20.5-60.0); Mean Corpuscular HGB Conc 32.4 g/dL (29.9-35.2); Mean Corpuscular Hemoglobin 29.6 pg (26.7-34.0); Mean Corpuscular Volume 91.4 fL (81.0-99.0); Mean Platelet Volume 11.1 fL (9.5-13.5); Monocytes Absolute Auto 1.3 10^3/uL (0.3-0.8); Monocytes Percent Auto 7.2 % (1.7-12.0); Neutrophils Absolute Auto 15.5 10^3/uL (1.4-6.5); Platelet Count 212 10^3/uL (150-450); Red Blood Count 3.82 10^6/uL (4.20-5.40); Red Cell Distribution Width 12.9 % (11.0-15.0); White Blood Count 17.8 10^3/uL (4.0-11.0)
[2024-03-31] MEDS: ENOXAPARIN SODIUM 40 MG/0.4 ML SYRINGE SUBQ (06:16)
[2024-03-31 08:31] VITALS: BP 133/82; PULSE 83; TEMP 36.7; O2SAT 94
[2024-03-31] MEDS: IBUPROFEN 400 MG TABLET 800 MG PO (09:19)
[2024-03-31] MEDS: MAGNESIUM HYDROXIDE 2,400 MG/10 ML ORAL.SUSP 2400 MG PO (09:19)
== END 2024-03-31 10:26 | disposition home or self-care (01) ==
LOC: SURGOUT 11:33 → MS 12:38
PROVIDERS: PCP Nurse Practitioner; Visit Provider Obstetrics & Gynecology
PROC: (CPT 944; principal; 2024-03-30 07:30)
DX: N94.6 Dysmenorrhea, unspecified (principal); N94.10 Unspecified dyspareunia; R10.2 Pelvic and perineal pain; N93.9 Abnormal uterine and vaginal bleeding, unspecified; N72 Inflammatory disease of cervix uteri; N80.03 Adenomyosis of the uterus; Z87.891 Personal history of nicotine dependence; I10 Essential (primary) hypertension; E66.01 Morbid (severe) obesity due to excess calories; Z68.43 Body mass index [BMI] 50.0-59.9, adult; F41.9 Anxiety disorder, unspecified; F90.9 Attention-deficit hyperactivity disorder, unspecified type; K21.9 Gastro-esophageal reflux disease without esophagitis
CPT/HCPCS: 58571; 36415; 80048; 84702; 85025; 88307; 94640; 94667; 96372; J0131; J0330; J0744; J1100; J1170; J1650; J1836; J1885; J2250; J2371; J2405; J2704; J3010

== ENCOUNTER 2024-04-04 11:10 | Emergency (ER) | payer OTHER, SELFPAY ==
[2024-04-04 11:15] VITALS: BP 126/92; PULSE 85; TEMP 36.9; O2SAT 98; BMI 52.0
--- NOTE | 2024-04-04 11:26 | XR_ITS ---
The [address] [address] Patient Name: BOO LIU MRN: [id number] date: 1985 Sex: F Assigned Patient Location: ER Current Patient Location: ER Accession/Order Number: [id number] Exam Date: 04/04/2024 11:34 Report Date: 04/04/2024 11:55 At the request of: HENRY ALVARENGA Procedure: XR shoulder RT min 2V PROCEDURE: XR shoulder RT min 2V COMPARISON: None. HISTORY: Atraumatic pain FINDINGS: BONES:No fracture, acute abnormality, or significant arthropathy. SOFT TISSUES:Negative. No visible soft tissue swelling. EFFUSION:None visible. OTHER: Negative. XR/XR shoulder RT min 2V IMPRESSION: No acute radiographic abnormality Electronically authenticated by: GOOD HENSON Date: 04/04/2024 11:55
--- NOTE | 2024-04-04 11:27 | ED.UPPEXIN1 ---
HPI HPI - Extremity Injury (Upper) General Chief Complaint: Extremity Injury, Upper Stated Complaint: RIGHT SHOULDER PAIN Time Seen by Provider: 04/04/24 11:14 Source: patient Mode of arrival: walk-in Limitations: no limitations History of Present Illness HPI narrative: 39-year-old female presents for right shoulder pain. She has had this for 5 days since she had a hysterectomy. She was told that the surgery took 3 hours and her arms were both above her head for positioning purposes. Her left shoulder was sore initially but its gotten much better, nearly back to normal. The right shoulder has not improved all that much. It does not hurt if she does not move it and hurts much more when she does move it. The pain is moderate to severe. She is right-handed. Related Data Home Medications ?Medication ?Instructions ?Recorded ?Confirmed amlodipine 10 mg tablet 10 mg PO DAILY 03/22/24 04/04/24 aripiprazole 5 mg tablet 5 mg PO DAILY 03/22/24 04/04/24 cetirizine 10 mg tablet 10 mg PO DAILY 03/22/24 04/04/24 cholecalciferol (vitamin D3) 125 125 mcg PO DAILY 03/22/24 04/04/24 mcg (5,000 unit) capsule duloxetine 60 mg capsule,delayed 60 mg PO DAILY 03/22/24 04/04/24 release ibuprofen 800 mg tablet 800 mg PO Q6H PRN pain 03/22/24 04/04/24 lisdexamfetamine 40 mg capsule 40 mg PO DAILY 03/22/24 04/04/24 (Vyvanse) losartan 100 mg tablet 100 mg PO DAILY 03/22/24 04/04/24 multivitamin 1 tab PO DAILY 03/22/24 04/04/24 Previous Rx's ?Medication ?Instructions ?Recorded oxycodone-acetaminophen 5 mg-325 1 tab PO Q6H PRN pain 7 days #28 03/30/24 mg tablet (Percocet) tabs Allergies Allergy/AdvReac Type Severity Reaction Status Date / Time amoxicillin Allergy Severe Hives Verified 04/04/24 11:15 latex Allergy Severe Rash Verified 04/04/24 11:15 Penicillins Allergy Severe Hives Verified 04/04/24 11:15 Opioid HPI Opioid Management Most Recent Pain and Opioid Data: Last Pain Scale 7 04/04/24 11:15 Last Pain Assessment 03/31/24 09:22 Review of Systems ROS Narrative A ten point review of systems is negative except as noted above. [facility] Medical History (Updated 04/04/24 @ 12:18 by Seun Loza MD) PONV (postoperative nausea and vomiting) ?R11.2 - Nausea with vomiting, unspecified (ICD-10) ?Z98.890 - Other specified postprocedural states (ICD-10) Slow to wake up after anesthesia ?T88.59XA - Other complications of anesthesia, initial encounter (ICD-10) Thyroid enlargement ?E04.9 - Nontoxic goiter, unspecified (ICD-10) Pelvic inflammatory disease (PID) ?N73.9 - Female pelvic inflammatory disease, unspecified (ICD-10) Chronic left shoulder pain ?M25.512 - Pain in left shoulder (ICD-10) ?G89.29 - Other chronic pain (ICD-10) Abnormal uterine bleeding ?N93.9 - Abnormal uterine and vaginal bleeding, unspecified (ICD-10) Hidradenitis ?L73.2 - Hidradenitis suppurativa (ICD-10) Pincer nail deformity ?L60.8 - Other nail disorders (ICD-10) Palpitations ?R00.2 - Palpitations (ICD-10) Dysmenorrhea ?N94.6 - Dysmenorrhea, unspecified (ICD-10) Abnormal stress test ?R94.39 - Abnormal result of other cardiovascular function study (ICD-10) ADHD ?F90.9 - Attention-deficit hyperactivity disorder, unspecified type (ICD-10) Chest pain ?R07.9 - Chest pain, unspecified (ICD-10) Allergic rhinitis ?J30.9 - Allergic rhinitis, unspecified (ICD-10) Vitamin D deficiency ?E55.9 - Vitamin D deficiency, unspecified (ICD-10) Metabolic syndrome ?E88.810 - Metabolic syndrome (ICD-10) Hypokalemia ?E87.6 - Hypokalemia (ICD-10) QUITA (obstructive sleep apnea) ?G47.33 - Obstructive sleep apnea (adult) (pediatric) (ICD-10) Morbid obesity ?E66.01 - Morbid (severe) obesity due to excess calories (ICD-10) Nicotine use ?Z72.0 - Tobacco use (ICD-10) GERD (gastroesophageal reflux disease) ?K21.9 - Gastro-esophageal reflux disease without esophagitis (ICD-10) Fibromyalgia ?M79.7 - Fibromyalgia (ICD-10) Essential hypertension ?I10 - Essential (primary) hypertension (ICD-10) Arthritis ?M19.90 - Unspecified osteoarthritis, unspecified site (ICD-10) Depression ?F32.A - Depression, unspecified (ICD-10) Anxiety ?F41.9 - Anxiety disorder, unspecified (ICD-10) Dyspareunia Pelvic pain ?R10.2 - Pelvic and perineal pain (ICD-10) Surgical History (Updated 03/22/24 @ 14:20 by Orly Pham, YUMIKO) H/O wisdom tooth extraction ?K08.409 - Partial loss of teeth, unspecified cause, unspecified class (ICD-10) H/O tubal ligation ?Z98.51 - Tubal ligation status (ICD-10) H/O eye surgery ?Z98.890 - Other specified postprocedural states (ICD-10) H/O laparoscopy ?Z98.890 - Other specified postprocedural states (ICD-10) H/O cardiac catheterization ?Z98.890 - Other specified postprocedural states (ICD-10) History of endometrial ablation ?Z98.890 - Other specified postprocedural states (ICD-10) H/O dilation and curettage ?Z98.890 - Other specified postprocedural states (ICD-10) History of bunionectomy ?Z98.890 - Other specified postprocedural states (ICD-10) Family History (Updated 03/25/24 @ 11:21 by Amanda Cho RN) Other Arterial thrombosis Family history of CHF (congestive heart failure) Family history of COPD (chronic obstructive pulmonary disease) Family history of cancer Family history of diabetes mellitus Family history of hypertension Family history of stroke Heart disease Social History (Updated 03/30/24 @ 06:44 by Monique Dasilva) Within the past year, how often did you have a drink containing alcohol: never Score interpretation: A score less than 3 is consistent with normal alcohol consumption. Smoking status: Former smoker Non-prescribed substance use: denies use Highest level of school completed/degree received: some college, no degree Exam Narrative Exam Narrative: Nurses note and vital signs reviewed and patient is not hypoxic. General: The patient appears well and in no apparent distress. Patient is resting comfortably on cart. Her arm is resting on a pillow. Skin: Warm, dry, no pallor noted. There is no rash noted. Head: Normocephalic, atraumatic Eye: Normal conjunctiva, no drainage Ears, Nose, Mouth, and Throat: oral mucosa is moist. Nares patent. Cardiovascular: Regular Rate and Rhythm Respiratory: Patient is in no distress, no accessory muscle use, lungs are clear to auscultation, no wheezing, rales or rhonchi Back: non-tender GI: Soft and nontender Musculoskeletal: Left shoulder has full range of motion. The right arm is examined. No swelling or erythema. Radial pulse 2+. Elbow and wrist are nontender. Range of motion of the right shoulder causes discomfort. She is able to abduct her arm. Neurological: A&O, normal speech Psychiatric: Cooperative Constitutional Vital Signs, click to edit/add: Last Vital Signs Temp 98.4 F 04/04/24 11:15 Pulse 85 04/04/24 11:15 Resp 18 04/04/24 11:15 BP 126/92 H 04/04/24 11:15 Pulse Ox 98 04/04/24 11:15 O2 Del Method Room Air 04/04/24 11:15 Course Vital Signs Vital signs: Vital Signs Temperature 98.4 F 04/04/24 11:15 Pulse Rate 85 04/04/24 11:15 Respiratory Rate 18 04/04/24 11:15 Blood Pressure 126/92 H 04/04/24 11:15 Pulse Oximetry 98 04/04/24 11:15 Oxygen Delivery Method Room Air 04/04/24 11:15 Temperature 98.4 F 04/04/24 11:15 Pulse Rate 85 04/04/24 11:15 Respiratory Rate 18 04/04/24 11:15 Blood Pressure 126/92 H 04/04/24 11:15 Pulse Oximetry 98 04/04/24 11:15 Oxygen Delivery Method Room Air 04/04/24 11:15 MDM - Extremity Injury (Upper) MDM Narrative Medical decision making narrative: The patient's symptoms are clearly mechanical. I have no clinical suspicion of pulmonary process such as pulmonary embolism. Range of motion causes discomfort. My clinical impression is that this is due to her positioning during the surgery 5 days ago. Sling applied, application checked by me and found to be appropriate, she is neurovascularly intact. Appointment made for her to see orthopedics in a week. She has Percocet and ibuprofen at home. Case discussed with Dr. Mendoza. Differential Diagnosis Differential diagnosis: Likely other (Shoulder strain, shoulder sprain) Imaging Data Right shoulder x-ray: Radiologist's impression: ITS Impressions Shoulder X-Ray 04/04/24 11:26 IMPRESSION: No acute radiographic abnormality Electronically authenticated by: GOOD HENSON Date: 04/04/2024 11:55 Discharge Plan Discharge Stand Alone Forms: Portal Instructions Chief Complaint: Extremity Injury, Upper Clinical Impression: Right shoulder strain Patient Disposition: Home, Self-Care Time of Disposition Decision: 12:17 Condition: Good Mode of Transportation: Private Vehicle Prescriptions / Home Meds: No Action amlodipine 10 mg tablet 10 mg PO DAILY aripiprazole 5 mg tablet 5 mg PO DAILY cetirizine 10 mg tablet 10 mg PO DAILY cholecalciferol (vitamin D3) 125 mcg (5,000 unit) capsule 125 mcg PO DAILY duloxetine 60 mg capsule,delayed release(DR/EC) 60 mg PO DAILY ibuprofen 800 mg tablet 800 mg PO Q6H PRN (Reason: pain) lisdexamfetamine [Vyvanse] 40 mg capsule 40 mg PO DAILY losartan 100 mg tablet 100 mg PO DAILY multivitamin Tablet 1 tab PO DAILY oxycodone-acetaminophen [Percocet] 5-325 mg tablet 1 tab PO Q6H PRN (Reason: pain) 7 Days Qty: 28 0RF Print Language: Montserratian Instructions: How to Use a Sling (ED), Shoulder Sprain (ED) Additional Instructions: See Dr. Hidalgo at 11 AM on April 11 Referrals: Tamiko Hernandez NP [Primary Care Provider] - 1 week Robert Hidalgo MD [Physician] - 1 week
== END 2024-04-04 12:28 | disposition home or self-care (01) ==
PROVIDERS: Emergency Provider Emergency Medicine; PCP Nurse Practitioner
DX: S46.911A Strain of unspecified muscle, fascia and tendon at shoulder and upper arm level, right arm, initial encounter (principal); Z90.710 Acquired absence of both cervix and uterus; Z87.891 Personal history of nicotine dependence; X50.1XXA Overexertion from prolonged static or awkward postures, initial encounter
CPT/HCPCS: 73030; 99283

== ENCOUNTER 2025-06-20 08:47 | Outpatient (OUT) | payer OTHER, SELFPAY ==
--- OUTSIDE RECORDS SUMMARY | 2025-06-20 08:58 | XMS_ITS | CCD ---
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 Name Role Phone Rayne Collierp Unavailable Unavailable GOPAL, ZENOBIAALESWARY Attending Unavai lable GOPAL, ZENOBIAALESPRAVEENA Primary Care Unavai lable NATE HERRON Attending Unavai lable GOPAL, ZENOBIAALESWARY Primary Care Unavai lable NATE HERRON Admitting Unavai labNATE Montiel Attending SavannahvaZENOBIA [facility]erre[facility]CUR[facility] LETICIA Aly Attending Unavaila ble GOPAL, ZENOBIAALESPRAVEENA Primary Care LETICIA Aly Admitting Unavaila LETICIA Auguste Attending Unavaila ble GOPAL, [facility] Primary Care UnavaMarcelo Callahan Primary Care Provider [phone] Marcelo Weaver Primary Care Provider Annette Coronel Unavailable Linda Baires Unavailable Liliana Morfin Unavailable AICHHOLZ, MUSIC SPECIALIST TAMIKO Admitting Unavailable AICHHOLZ, MUSIC SPECIALIST TAMIKO Attending Unavailable AICHHOLZ, MUSIC SPECIALIST TAMIKO Primary Care Unavailable AICHHOLZ, MUSIC SPECIALIST TAMIKO Consulting Unavailable AICHHOLZ, MUSIC SPECIALIST TAMIKO Admitting Unavailable AICHHOLZ, MUSIC SPECIALIST TAMIKO Attending Unavailable AICHHOLZ, MUSIC SPECIALIST TAMIKO Primary Care Unavailable AICHHOLZ, MUSIC SPECIALIST TAMIKO Consulting Unavailable AICHHOLZ, MUSIC SPECIALIST TAMIKO Admitting Unavailable AICHHOLZ, MUSIC SPECIALIST TAMIKO Attending Unavailable AICHHOLZ, MUSIC SPECIALIST TAMIKO Primary Care Unavailable AICHHOLZ, MUSIC SPECIALIST TAMIKO Consulting Unavailable AICHHOLZ, MUSIC SPECIALIST TAMIKO Primary Care Unavailable NATALI, TAI Admitting Unavailable NATALI, TAI Attending Unavailable NATALI, TAI Consulting Unavailable AICHHOLZ, MUSIC SPECIALIST TAMIKO Admitting Unavailable AICHHOLZ, MUSIC SPECIALIST TAMIKO Attending Unavailable AICHHOLZ, MUSIC SPECIALIST TAMIKO Primary Care Unavailable SIXTO, DR GOOD Manzo Consulting Unavailable AICHHOLZ, MUSIC SPECIALIST TAMIKO Consulting Unavailable AICHHOLZ, MUSIC SPECIALIST TAMIKO Admitting Unavailable AICHHOLZ, MUSIC SPECIALIST TAMIKO Attending Unavailable AICHHOLZ, MUSIC SPECIALIST TAMIKO Primary Care Unavailable AICHHOLZ, MUSIC SPECIALIST TAMIKO Consulting Unavailable AICHHOLZ, MUSIC SPECIALIST TAMIKO Admitting Unavailable AICHHOLZ, MUSIC SPECIALIST TAMIKO Attending Unavailable AICHHOLZ, MUSIC SPECIALIST TAMIKO Primary Care Unavailable AICHHOLZ, MUSIC SPECIALIST TAMIKO Consulting Unavailable AICHHOLZ, MUSIC SPECIALIST TAMIKO Admitting Unavailable AICHHOLZ, MUSIC SPECIALIST TAMIKO Attending Unavailable AICHHOLZ, MUSIC SPECIALIST TAMIKO Primary Care Unavailable AICHHOLZ, MUSIC SPECIALIST TAMIKO Consulting Unavailable AICHHOLZ, MUSIC SPECIALIST TAMIKO Admitting Unavailable AICHHOLZ, MUSIC SPECIALIST TAMIKO Attending Unavailable AICHHOLZ, MUSIC SPECIALIST TAMIKO Primary Care Unavailable AICHHOLZ, MUSIC SPECIALIST TAMIKO Consulting Unavailable AICHHOLZ, TAMIKO J. Primary Care Unavailable VAELNTIN-MARTA, RUBÉN Barrera Referring Unavailable MD Marcelo Weaver Primary Care Provider Will Mendoza Attending Provider [phone] Tamiko Hernandez Primary Care Provider Joslyn, ADINA Ramirez Attending Provider [phone] Will Mendoza Admitting Unavailable Will Mendoza Attending Unavailable Marcelo Weaver Primary Care Unavailable Will Mendoza Attending Unavailable Marcelo Weaver Primary Care Unavailable Will Mendoza Admitting Unavailable Jessy Jorgensen Admitting Unavailable Jessy Jorgensen Attending Unavailable Tamiko Hernandez Primary Care Unavailable Timothy Tucker MD Primary Care Provider [phone] Timothy Tucker MD Unavailable Unallocated , [place] Provider Primary Care Provi cat David GENETIC TECHNOLOGIST, Tamiko Unavailable David TANK STAVE ASSEMBLER - GENETIC TECHNOLOGIST, Tamiko Matthew Primary Care Provide r FORTUNATO THORPE Referring Unavailable TAMIKO HERNANDEZ Primary Care Unavailable FORTUNATO THORPE Attending Unavailable FORTUNATO THORPE Referring Unavailable TAMIKO HERNANDEZ Primary Care Unavailable FORTUNATO THORPE Referring Unavailable TAMIKO HERNANDEZ Primary Care Unavailable FORTUNATO THORPE Referring Unavailable TAMIKO HERNANDEZ Primary Care Unavailable FORTUNATO THORPE Referring Unavailable TAMIKO HERNANDEZ Primary Care Unavailable MAYA BENDER Referring Unavailable TAMIKO HERNANDEZ Primary Care Unavailable FORTUNATO THORPE Attending Unavailable FORTUNATO THORPE Admitting Unavailable TAMIKO HERNANDEZ Primary Care Unavailable Timothy Tucker MD Primary Care Provider David TANK STAVE ASSEMBLER - GENETIC TECHNOLOGIST, aTmiko Matthew Primary Care Provide r David GENETIC TECHNOLOGIST, Tamiko Unavailable DAVID, TAMIKO Attending Unavailable AICHHOLZ, TAMIKO Attending Unavailable WILL MENDOZA Attending Unavailable AICHHOLZ, TAMIKO Attending Unavailable KRISTY ACUNA Attending Unavailable ZOE MARSHALL Attending Unavailable AICHHOLZ, TAMIKO Attending Unavailable AICHHOLZ, TAMIKO Attending Unavailable DAGO BURRIS Attending Unavailable GEOVANNA SORENSEN Attending Unavailable Unavailable Unavailable Unavailable Allergies Allergy Classification Reported Allergen(s) Allergy Type Date of Onset Reaction(s) Facility Latex (1 source) Latex Substance Allergy 3 [facility] Penicillins (antibiotic) (1 source) Amoxicillin Drug Allergy 3 stomach ache [facility] (20 sources) Amoxicillin Drug Allergy 4 Rash, Nausea And Vomiting, GI intolerance, Hives [place], [place] (17 sources) Latex; Translations: [LATEX] Propensity to adverse reactions to drug 0 Rash [place], [place] (1 source) Amoxicillin Drug Allergy [facility] (1 source) Latex Drug allergy (disorder) [facility] (1 source) Amoxicillin Drug Allergy 4 [facility] (1 source) Latex Drug allergy (disorder) 4 [facility] (20 sources) Latex Allergy to substance 3 Rash [facility] (20 sources) Penicillins; Translations: [PENICILLINS] Drug Allergy 4 GI intolerance, Other, Hives, Nausea And Vomiting, Unknown, Rash [facility] Medications Current Medications Medication Drug Class(es) Dates Sig (Normalized) Sig (Original) [id number] 200 actuat albuterol 0.09 mg/actuat metered dose inhaler (13 sources) beta2-Adrenergic Agonist Start: 07-25-2024 End: 08-24-2024 take 2 puff(s) by inhalation every six hours for wheezing albuterol HFA 90 mcg/act inhaler Indications: URI, acute Inhale 2 puffs every 6 (six) hours if needed for wheezing or shortness of breath 18 g 07/25/2024 Active amLODIPine 10 mg oral tablet (20 sources) Dihydropyridine Calcium Channel Barry Start: 12-29-2024 take 1 tablet by mouth once daily amLODIPine (Norvasc) 10 MG tablet Indications: Essential hypertension Take 1 tablet (10 mg) by mouth Daily 30 tablet 5 12/29/2024 Active Start: 12-03-2023 End: 11-24-2024 take 1 tablet by mouth once daily amLODIPine (Norvasc) 10 MG tablet Indications: Essential hypertension (CMS/HCC) Take 1 tablet (10 mg) by mouth Daily 30 tablet 5 10/25/2024 Active ARIPiprazole 5 mg oral tablet (20 sources) Atypical Antipsychotic Start: 12-29-2024 take 1 tablet by mouth once daily ARIPiprazole (Abilify) 5 MG tablet Indications: Anxiety and depression Take 1 tablet (5 mg) by mouth Daily 30 tablet 5 12/29/2024 Active Start: 12-03-2023 End: 11-24-2024 take 1 tablet by mouth once daily ARIPiprazole (Abilify) 5 MG tablet Indications: Anxiety and depression (CMS/HCC) Take 1 tablet (5 mg) by mouth Daily 30 tablet 5 10/25/2024 Active take 1 tablet by colin th every twenty-four hours Abilify 5 MG 1 tablet Orally Once a day Active azithromycin 250 mg oral tablet (6 sources) Macrolide Antimicrobial Start: 07-25-2024 End: 10-25-2024 azithromycin (Zithromax) 250 MG tablet Indications: URI, acute 2 pills day #1, 1 pill day #2-#5 6 tablet 07/25/2024 10/25/2024 Discontinued (Therapy completed) Biotin (3 sources) BIOTIN PO Take b y mouth Active calcium chloride 0.0014 meq/ml / potassium [...] a day for 10 day(s) Nov, Active cetirizine hydrochloride 10 mg oral tablet (20 sources) Histamine-1 Receptor Antagonist Start: 12-29-2024 take 1 tablet by mouth once daily cetirizine (ZyrTEC) 10 MG tablet Indications: Allergic rhinitis, unspecified seasonality, unspecified trigger Take 1 tablet (10 mg) by mouth Daily 30 tablet 5 12/29/2024 Active Start: 05-18-2024 End: 11-24-2024 take 1 tablet by mouth once daily cetirizine (ZyrTEC) 10 MG tablet Indications: Allergic rhinitis, unspecified seasonality, unspecified trigger Take 1 tablet (10 mg) by mouth Daily 30 tablet 5 10/25/2024 Active cholecalciferol 0.125 mg oral tablet (15 sources) Vitamin D Start: 09-05-2024 End: 10-05-2024 take 1 tablet by mouth once daily cholecalciferol (D-5000) 5,000 Units tablet Indications: Vitamin D deficiency Take 1 tablet (5,000 Units) by mouth Daily 30 tablet 2 09/05/2024 10/05/2024 Active Start: 07-26-2024 End: 08-25-2024 take 1 tablet by mouth once daily cholecalciferol (Vitamin D-3) 125 MCG (5000 UT) tablet Indications: Vitamin D deficiency Take 1 tablet (125 mcg) by mouth Daily 30 tablet 2 07/26/2024 08/25/2024 Active Start: 07-04-2024 take 125 ug by mouth once daily Cholecalciferol (Vitamin D3) Active 125 MCG PO Daily July 04, 2024 12:00am Start: 05-18-2024 End: 07-26-2024 take 1 tablet by mouth once daily cholecalciferol (D3-5) 5,000 Units tablet Indications: Vitamin D deficiency Take 1 tablet (5,000 Units) by mouth Daily 30 tablet 1 05/18/2024 07/26/2024 Discontinued Start: 03-28-2024 take 1 capsule by [facility] once daily RA VITAMIN D-3 125 MCG (5000 UT) CAPS capsule Take 1 capsule by mouth daily 03/28/2024 Active Crutches (2 sources) Start: 07-04-2024 Crutches Active 0 .Route 1 July 04, 2024 12:00am As directed cyclobenzaprine hydrochloride 10 mg oral tablet (1 source) Muscle Relaxant Start: 03-16-2022 take 1 tablet by mouth every eight hours Cyclobenzaprine HCl 10 MG 1 tablet as needed Orally Three times a day for 10 days Mar, Active DULoxetine 60 mg delayed release oral capsule (20 sources) Serotonin and Norepinephrine Reuptake Inhibitor Start: 05-18-2024 End: 10-25-2024 take 1 capsule by mouth once daily DULoxetine (Cymbalta) [address] capsule Indications: Anxiety and depression (CMS/HCC) Take 1 capsule (60 mg) by mouth Daily Do not crush or chew. 30 capsule 5 07/25/2024 10/25/2024 Discontinued (Therapy completed) take 1 capsule by [facility] every twelve hours DULoxetine HCl 60 MG 1 Tablet orally bid Active famotidine 20 mg oral tablet (5 sources) Histamine-2 Receptor Antagonist Start: 01-24-2020 take 1 tablet by mouth twice daily famotidine (PEPCID) 20 MG tablet take 1 tablet by mouth twice a day 0 01/24/2020 Active FLUoxetine 20 mg oral capsule (11 sources) Serotonin Reuptake Inhibitor Start: 05-29-2025 End: 06-28-2025 take 1 capsule by mouth once daily FLUoxetine (PROzac) 20 MG capsule Indications: Anxiety and depression Take 1 capsule (20 mg) by mouth Daily 30 capsule 1 05/29/2025 06/28/2025 Active Start: 10-25-2024 End: 01-20-2025 take 1 capsule by mouth once daily FLUoxetine (PROzac) 20 MG capsule Indications: Anxiety and depression Take 1 capsule (20 mg) by mouth Daily 30 capsule 2 12/29/2024 Active hydroCHLOROthiazide 25 mg oral tablet (10 sources) Thiazide Diuretic Start: 03-13-2020 take 1 tablet by mouth once daily hydroCHLOROthiazide (HYDRODIURIL) 25 MG tablet take 1 tablet by mouth once daily 0 03/13/2020 Active lisdexamfetamine dimesylate 40 mg oral capsule (20 sources) Central Nervous System Stimulant Start: 07-25-2024 End: 07-02-2025 take 1 capsule by mouth in the morning lisdexamfetamine (Vyvanse) 40 MG capsule Indications: Attention deficit hyperactivity disorder (ADHD), predominantly inattentive type , Binge eating disorder, unspecified severity Take 1 capsule (40 mg) by mouth in the morning. Do not start before June 02, 2025. 30 capsule 06/02/2025 07/02/2025 Active Start: 06-24-2024 take 1 capsule by mo uth in the morning lisdexamfetamine (Vyvanse) 40 MG capsule Indications: Attention deficit hyperactivity disorder (ADHD), predominantly inattentive type (CMS/HCC) Take 1 capsule (40 mg) by mouth in the morning. Do not start before June 24, 2024. 30 capsule 06/24/2024 Active Start: 06-24-2024 take 1 capsule by mo uth in the morning lisdexamfetamine (Vyvanse) 40 MG capsule Indications: Attention deficit hyperactivity disorder (ADHD), predominantly inattentive type (CMS/HCC) Take 1 capsule (40 mg) by mouth in the morning. Do not start before June 24, 2024. 30 capsule 06/24/2024 Active Start: 01-08-2024 End: 10-23-2024 take 1 capsule by mouth in the morning lisdexamfetamine (Vyvanse) 40 MG capsule Indications: Attention deficit hyperactivity disorder (ADHD), predominantly inattentive type (CMS/HCC) Take 1 capsule (40 mg) by mouth in the morning. 30 capsule 06/08/2024 07/08/2024 Active Vyvanse Active losartan potassium 100 mg oral tablet (20 sources) Angiotensin 2 Receptor Barry Start: 12-29-2024 take 1 tablet by mouth once daily in the morning losartan (Cozaar) 100 MG tablet Indications: Essential hypertension Take 1 tablet (100 mg) by mouth Daily Take 1 tablet by mouth in the morning. 30 tablet 5 12/29/2024 Active Start: 12-03-2023 End: 11-24-2024 take 1 tablet by mouth once daily in the morning losartan (Cozaar) 100 MG tablet Indications: Essential hypertension (CMS/HCC) Take 1 tablet (100 mg) by mouth Daily Take 1 tablet by mouth in the morning. 30 tablet 5 10/25/2024 Active Losartan Potassi um Active Magnesium (3 sources) Start: 01-25-2024 take 300 mg by mouth once daily MAGNESIUM PO Take 300 mg by mouth daily 01/25/2024 Active methylPREDNISolone 4 mg oral tablet (1 source) Corticosteroid Start: 03-16-2022 methylPREDNISolone 4 MG as directed Orally Once a day for 6 days Mar, Active 24 hr metoprolol succinate 50 mg extended release oral tablet (20 sources) beta-Adrenergic Barry Start: 07-25-2024 End: 10-25-2024 take 1 tablet by mouth once daily metoprolol succinate XL (Toprol-XL) 50 MG 24 hr tablet Indications: Essential hypertension (CMS/HCC) Take 1 tablet (50 mg) by mouth Daily 30 tablet 5 07/25/2024 10/25/2024 Discontinued (Therapy completed) Start: 07-04-2024 End: 07-04-2024 take 50 mg by mouth once daily Metoprolol Succinate Di scontinued 50 MG PO Daily July 04, 2024 12:00am July 04, 2024 2:25pm Start: 05-09-2024 End: 11-23-2025 take 1 tablet by mouth every twenty-four hours in the morning metoprolol succinate XL (Toprol-XL) 50 MG 24 hr tablet Take 50 mg by mouth in the morning. 11/23/2024 11/23/2025 Active nitrofurantoin, macrocrystals 25 mg / nitrofurantoin, monohydrate 75 mg oral capsule (1 source) Nitrofuran Antibacterial Start: 06-06-2025 End: 06-13-2025 take 1 capsule by mouth in the morning nitrofurantoin, macrocrystal-monohydrate, (Macrobid) 100 MG capsule Indications: UTI symptoms Take 1 capsule (100 mg) by mouth in the morning and 1 capsule (100 mg) before bedtime. Do all this for 7 days. 14 capsule 06/06/2025 06/13/2025 Active ofloxacin 3 mg/ml otic solution (2 sources) Quinolone Antimicrobial Start: 10-25-2024 End: 11-01-2024 ofloxacin (Floxin) 0.3 % otic solution Indications: Acute diffuse otitis externa of both ears Administer 10 drops into each ear Daily for 7 days 10 mL 10/25/2024 11/01/2024 Active pantoprazole 40 mg delayed release oral tablet (2 sources) Proton Pump Inhibitor Start: 09-28-2020 take 1 tablet by mouth once daily before breakfast pantoprazole (PROTONIX) 40 MG tablet Take 1 tablet by mouth every morning (before breakfast) 90 tablet 1 09/28/2020 Active Pneumatic Walking Boot (2 sources) Start: 07-04-2024 Pneumatic Walking Boot Active 0 .Route 1 July 04, 2024 12:00am As directed SEMAGLUTIDE-WEIGHT MANAGEMENT SC (10 sources) SEMAGLUTIDE-WEIG HT MANAGEMENT SC Inject under the skin Active spironolactone 50 mg oral tablet (17 sources) Aldosterone Antagonist Start: 04-25-2024 End: 10-25-2024 take 1 tablet by mouth once daily spironolactone (Aldactone) 50 MG tablet Indications: Bilateral lower extremity edema Take 1 tablet (50 mg) by mouth Daily 30 tablet 2 07/25/2024 10/25/2024 Discontinued (Therapy completed) varenicline 0.5 mg oral tablet (2 sources) Partial Cholinergic Nicotinic Agonist take 1 tablet by mouth twice daily varenicline (CHANTIX) 0.5 MG tablet Take 0.5 mg by mouth 2 times daily 0 Active Completed/Discontinued Medications Medication Drug Class(es) Dates Sig (Normalized) Sig (Original) hydrocortisone 10 mg/ml / neomycin 3.5 mg/ml / polymyxin b 10411 unt/ml otic suspension (4 sources) Aminoglycoside Antibacterial, Polymyxin-class Antibacterial, Corticosteroid Start: 08-06-2022 Neomycin-Polymyx in-HC 3.5-42256-0 3 drops both ears Three times a day for 7 days Jul, Not-Taking Start: 09-15-2021 Neomycin-Polym yxin-HC 3.5-37382-7 4 drops into affected ear Otic Three [...] Problem Classification Problem Date Documented Date Episodic/Chronic Adjustment disorders (3 sources) Adjustment disorder with mixed anxiety and depressed mood; Translations: [Adjustment disorder with mixed anxiety and depressed mood] Onset: 02-29-2024 02-29-2024 Chronic Allergic reactions (2 sources) Latex allergy status; Translations: [Allergy status to penicillin] Onset: 12-17-2018 Episodic Anxiety disorders (20 sources) Mixed anxiety and depressive disorder; Translations: [Depression with anxiety] Onset: 04-17-2020 04-17-2020 Chronic Attention-deficit, conduct, and disruptive behavior disorders (20 sources) Attention deficit hyperactivity disorder, predominantly inattentive type; Translations: [Attention-deficit hyperactivity disorder, predominantly inattentive type] Onset: 12-03-2023 12-03-2023 Chronic Coronary atherosclerosis and other heart disease (2 sources) Other forms of angina pectoris; Translations: [Old myocardial infarction] Onset: 12-17-2018 Chronic Disorders of lipid metabolism (3 sources) Hyperlipidemia, unspecified; Translations: [Mixed hyperlipidemia] Onset: 12-17-2018 Chronic Esophageal disorders (20 sources) Gastroesophageal reflux disease without esophagitis; Translations: [Gastro-esophageal reflux disease without esophagitis] Onset: 04-17-2020 04-17-2020 Chronic Essential hypertension (20 sources) Essential (primary) hypertension; Translations: [Essential hypertension] Onset: 12-17-2018 04-17-2020 Chronic Fracture of lower limb (4 sources) Closed fracture of medial malleolus; Translations: [Displaced fracture of medial malleolus of unspecified tibia, initial encounter for closed fracture] 07-04-2024 Episodic Genitourinary symptoms and ill-defined conditions (2 sources) Female stress incontinence; Translations: [Incontinence, stress - Female] Chronic Genitourinary symptoms and ill-defined conditions (2 sources) Urinary symptoms ; Translations: [Unspecified symptoms and signs involving the genitourinary system] Onset: 06-06-2025 06-06-2025 Episodic Hypertension with complications and secondary hypertension (2 sources) Hypertensive heart disease without heart failure; Translations: [Hypertensive heart disease without heart failure] Onset: 11-23-2024 Chronic Miscellaneous mental health disorders (20 sources) Binge eating disorder; Translations: [Binge eating disorder] Onset: 10-01-2023 10-01-2023 Chronic Mood disorders (1 source) Mood disorders; Translations: [Depression, unspecified] Onset: 04-17-2020 Nutritional deficiencies (20 sources) Vitamin D deficiency, unspecified; Translations: [Vitamin D deficiency] Onset: 05-05-2018 12-03-2023 Chronic Osteoarthritis (20 sources) Arthritis; Translations: [Unspecified osteoarthritis, unspecified site] Onset: 04-17-2020 04-17-2020 Chronic Other aftercare (1 source) penitentiary (current) use of aspirin Onset: 12-17-2018 Episodic Other ear and sense organ disorders (1 source) Unspecified acute noninfective otitis externa, bilateral Episodic Other endocrine disorders (20 sources) Polycystic ovary syndrome; Translations: [Polycystic ovarian syndrome] Onset: 01-28-2024 05-18-2024 Chronic Other injuries and conditions due to external causes (2 sources) Injury of left leg; Translations: [Unspecified injury of left ankle, initial encounter] 07-04-2024 Episodic Other injuries and conditions due to external causes (1 source) Unspecified injury of left ankle, initial encounter; Translations: [Unspecified injury of left ankle, initial encounter] Onset: 07-04-2024 Episodic Other lower respiratory disease (3 sources) Other forms of dyspnea; Translations: [Other forms of dyspnea] Onset: 01-26-2024 Episodic Other non-traumatic joint disorders (3 sources) Pain in right knee; Translations: [Right knee pain, unspecified chronicity] Episodic Other non-traumatic joint disorders (2 sources) Acute ankle pain; Translations: [Pain in right ankle and joints of right foot] 07-05-2024 Episodic Other nutritional; endocrine; and metabolic disorders (1 source) Body mass index (BMI) 40.0-44.9, adult Onset: 12-17-2018 Chronic Other nutritional; endocrine; and metabolic disorders (20 sources) Body mass index 40+ - severely obese; Translations: [Body mass index (BMI) 45.0-49.9, adult] Onset: 04-17-2020 Resolved: 07-25-2024 04-25-2024 Chronic Other nutritional; endocrine; and metabolic disorders (18 sources) Morbid obesity; Translations: [Morbid (severe) obesity due to excess calories] Onset: 04-17-2020 04-17-2020 Chronic Other nutritional; endocrine; and metabolic disorders (2 sources) Obesity; Translations: [Obesity] Chronic Other nutritional; endocrine; and metabolic disorders (2 sources) Morbid (severe) obesity due to excess calories; Translations: [Morbid (severe) obesity due to excess calories] Onset: 01-28-2024 Chronic Other nutritional; endocrine; and metabolic disorders (20 sources) Metabolic syndrome X; Translations: [Metabolic syndrome] Onset: 12-03-2023 12-03-2023 Chronic Other nutritional; endocrine; and metabolic disorders (1 source) Body mass index (BMI) 50.0-59.9, adult; Translations: [Body mass index (BMI) 50.0-59.9, adult] Onset: 01-28-2024 Chronic Other nutritional; endocrine; and metabolic disorders (1 source) Obesity, unspecified; Translations: [Obesity, unspecified] Onset: 05-20-2024 Chronic Other nutritional; endocrine; and metabolic disorders (15 sources) Obesity caused by energy imbalance; Translations: [Morbid (severe) obesity due to excess calories] Onset: 04-17-2020 10-25-2024 Chronic Other upper respiratory disease (20 sources) Allergic rhinitis; Translations: [Allergic rhinitis, unspecified] Onset: 12-03-2023 12-03-2023 Chronic Residual codes; unclassified (20 sources) Obstructive sleep apnea syndrome; Translations: [Obstructive sleep apnea (adult) (pediatric)] Onset: 04-17-2020 04-17-2020 Chronic Residual codes; unclassified (1 source) Obstructive sleep apnea (adult) (pediatric); Translations: [Obstructive sleep apnea (adult) (pediatric)] Onset: 04-17-2020 Chronic Residual codes; unclassified (1 source) Family history of ischemic heart disease and other diseases of the circulatory system; Translations: [Family history of ischemic heart disease and other diseases of the circulatory system] Onset: 02-05-2024 Episodic Sprains and strains (2 sources) Sprain of deltoid ligament of right ankle, initial encounter; Translations: [Sprain of deltoid (ligament), ankle] 07-05-2024 Episodic Substance-related disorders (2 sources) Nicotine dependence, unspecified, uncomplicated; Translations: [Nicotine dependence, cigarettes, uncomplicated] Onset: 12-17-2018 Chronic Thyroid disorders (5 sources) Nontoxic goiter, unspecified; Translations: [NONTOXIC GOITER UNSPECIFIED] Onset: 04-11-2022 Chronic Unclassified (1 source) Family hx of ischem heart dis and oth dis of the circ sys Onset: 12-15-2018 Unclassified (3 sources) Encntr for general adult medical exam w/o abnormal findings; Translations: [Encntr for general adult medical exam w/o abnormal findings] Onset: 05-05-2018 Unclassified (1 source) Morbid (severe) obesity due to excess calories Onset: 12-17-2018 Unclassified (2 sources) Patient encounter status; Translations: [Preop testing] Unclassified (2 sources) History of clinical finding in subject; Translations: [History of nicotine use] Onset: 09-19-2020 09-19-2020 Past or Other Problems Problem Classification Problem Date Documented Date Episodic/Chronic Cancer of cervix (20 sources) Low grade squamous intraepithelial lesion on cervical Papanicolaou smear; Translations: [Low grade squamous intraepithelial lesion on cytologic smear of cervix (LGSIL)] Onset: 01-05-2024 01-05-2024 Episodic Cardiac dysrhythmias (20 sources) Palpitations; Translations: [Palpitations] Onset: 07-18-2022 Episodic Diabetes mellitus without complication (20 sources) Other abnormal glucose; Translations: [Increased glucose level] Onset: 04-11-2022 12-03-2023 Episodic Fluid and electrolyte disorders (20 sources) Hypokalemia; Translations: [Hypokalemia] Onset: 10-28-2022 Resolved: 12-03-2023 Episodic Immunizations and screening for infectious disease (1 source) Contact with and (suspected) exposure to other viral communicable diseases Onset: 09-29-2021 Resolved: 09-29-2021 Episodic Menstrual disorders (20 sources) Dysmenorrhea; Translations: [Dysmenorrhea, unspecified] Onset: 01-05-2024 Resolved: 05-18-2024 05-18-2024 Chronic Mood disorders (15 sources) Moderate major depression, single episode; Translations: [Major depressive disorder, single episode, moderate] Onset: 10-25-2024 Resolved: 04-03-2025 10-25-2024 Chronic Nonspecific chest pain (20 sources) Chest pain, unspecified; Translations: [Chest pain] Onset: 12-15-2018 12-03-2023 Episodic Other connective tissue disease (20 sources) Fibromyalgia; Translations: [Fibromyalgia] Onset: 04-18-2020 04-18-2020 Episodic Other connective tissue disease (2 sources) Fibromyalgia; Translations: [FIBROMYALGIA] Onset: 04-18-2020 Episodic Other ear and sense organ disorders (1 source) Unspecified acute noninfective otitis externa, right ear Onset: 09-15-2021 Resolved: 09-15-2021 Episodic Other ear and sense organ disorders (20 sources) Acute otitis externa; Translations: [Diffuse otitis externa, bilateral] Onset: 10-01-2023 Resolved: 12-05-2024 01-05-2024 Episodic Other non-traumatic joint disorders (2 sources) Joint pain; Translations: [Joint pain, other specified sites] Episodic Other non-traumatic joint disorders (4 sources) Pain in right shoulder; Translations: [PAIN IN RIGHT SHOULDER] Onset: 03-15-2022 Resolved: 03-16-2022 Episodic Other screening for suspected conditions (not mental disorders or infectious disease) (20 sources) Abnormal electrocardiogram [ECG] [EKG]; Translations: [Cardiovascular stress test abnormal] Onset: 12-15-2018 12-31-2023 Episodic Other skin disorders (20 sources) Pincer nail deformity; Translations: [Other nail disorders] Onset: 01-05-2024 01-05-2024 Episodic Other skin disorders (20 sources) Hidradenitis suppurativa; Translations: [Hidradenitis suppurativa] Onset: 01-05-2024 01-05-2024 Episodic Other upper respiratory infections (19 sources) Acute pharyngitis, unspecified; Translations: [Streptococcal pharyngitis] Onset: 07-25-2024 Resolved: 10-25-2024 Episodic Otitis media and related conditions (1 source) Otitis media, unspecified, right ear Onset: 09-29-2021 Resolved: 09-29-2021 Episodic Residual codes; unclassified (20 sources) Tobacco user; Translations: [Tobacco use disorder, current] Onset: 12-03-2023 Resolved: 04-25-2024 04-25-2024 Episodic Residual codes; unclassified (20 sources) Bilateral lower limb edema; Translations: [Localized edema] Onset: 04-25-2024 04-25-2024 Episodic Residual codes; unclassified (20 sources) Family history of pulmonary embolism; Translations: [Family history of ischemic heart disease and other diseases of the circulatory system] Onset: 01-28-2024 05-18-2024 Episodic Residual codes; unclassified (3 sources) Nicotine user; Translations: [Tobacco use] Onset: 04-18-2020 Resolved: 09-19-2020 09-19-2020 Episodic Residual codes; unclassified (6 sources) Nicotine user; Translations: [Current nicotine use] Onset: 04-18-2020 Resolved: 09-19-2020 04-18-2020 Screening and history of mental health and substance abuse codes (20 sources) Ex-smoker; Translations: [Personal history of nicotine dependence] Onset: 09-19-2020 Resolved: 04-25-2024 04-25-2024 Episodic Skin and subcutaneous tissue infections (20 sources) Abscess of skin and/or subcutaneous tissue; Translations: [Cutaneous abscess, unspecified] Onset: 12-03-2023 Resolved: 12-03-2023 12-03-2023 Episodic Spondylosis; intervertebral disc disorders; other back problems (14 sources) Cervicalgia; Translations: [Sciatica] Onset: 05-03-2018 Episodic Results Test Name Value Interpretation Reference Range Facility Office Visiton 05-18-2025 Follow-up visit [id number] Boo Liu 1985 Date Provider Department Center 05/18/2025 [id number], GEOVANNA TERRY [facility] Family History Problem Relation Age of Onset Other Mother Deep vein thrombosis Father Heart attack Maternal Grandfather Family Status - Relation Status Age at Mother Father Maternal Grandfather Level of Service:76725 [place] OFFICE/OUTPATIENT ESTABLISHED LOW MDM 20 MIN Reason for Visit and Comments: 6 month follow up [Other] Hypertension [842818] Palpitations [596146] Normal [facility] Office Visiton 11-23-2024 Follow-up visit [id number] Boo Liu 1985 Date Provider Department Center 11/23/2024 Maribel8DAGO ROSAS Family History Problem Relation Age of Onset Other Mother Deep vein thrombosis Father Heart attack Maternal Grandfather Family Status - Relation Status Age at Mother Father Maternal Grandfather Level of Service:93878 [place] OFFICE/OUTPATIENT ESTABLISHED LOW MDM 20 MIN Normal [facility] XR foot LT min 3V*on 024 XR foot LT min 3V* [facility] [address] XRay Report Signed Patient: Boo Liu MR#: [id number] : 1985 Acct:[id number] Age/Sex: 39 / F ADM Date: 07/04/24 Loc: XDUCLY Room: [facility] Attending Dr: Jessy Jorgensen APRN Copies to: Jessy Jorgensen APRN Ordering Provider: Jessy Jorgensen APRN Date of Service: 07/04/24 XR/XR foot LT min 3V*: LEFT FOOT/ANKLE INJURY ([id number]) XR/XR ankle LT min 3V*: LEFT FOOT/ANKLE INJURY LEFT ANKLE - 3 views, left foot 3 views CLINICAL HISTORY: Tripped over baby seat and hyperextended left foot and ankle. Pain pain over the medial ankle and dorsal aspect of left foot near fourth and fifth metatarsals. COMPARISON: None FINDINGS: Left ankle: Diffuse soft tissue swelling is present. The mortise appears intact. There appears be a chip fracture involving the medial malleolus. Next Left foot: Dorsal soft tissue swelling. Plantar spurring. No acute bony process is seen. Presumed remote traumatic changes involving the base of the proximal phalanx of the first digit. No bony erosions. XR/XR ankle LT min 3V* IMPRESSION: THERE APPEARS BE A CHIP FRACTURE INVOLVING THE MEDIAL MALLEOLUS. THERE IS ASSOCIATED ANKLE SOFT TISSUE SWELLING. DORSAL SOFT TISSUE SWELLING INVOLVING THE LEFT FOOT WITHOUT ACUTE BONY PROCESS. PLANTAR SPURRING. Impression dictated by: Bhupinder Ridley Jr., D.O.07/04/2024 3:06 PM Dictation Location: [place] [address] Transcribed By: [facility] 07/04/24 1506 Dictated By: Bhupinder Ridley Jr, DO 07/04/24 1504 Signed By: 07/04/24 1506 Normal [facility] Nicotineon 05-28-2024 Cotinine <5 Normal [facility] Comment on above: Performed By: #### D AU #### [facility] [address] [place] [address] Senior Reservoir Engineer: Good Hernandez MD Nicotine <5 Normal [facility] Comment on above: Result Comment: (NOT E) INTERPRETIVE INFORMATION: Nicotine and Metabolites, Serum or Plasma, Quantitative Methodology: Quantitative Liquid Chromatography-Tandem Mass Spectrometry Positive cutoff: 5 ng/mL For medical purposes only; not valid [...] the cutoff to be reported as positive. This test was developed and its performance characteristics determined by [facility]. It has not been cleared or approved by the [place] Food and Drug Administration. This test was performed in a CLIA certified laboratory and is intended for clinical purposes. Performed By: [facility] [address] [place] [address] [employer] Pump Operator: Yves Perez MD, PhD CLIA Number: [id number] Performed By: #### D AU #### [address] [place] [address] Senior Reservoir Engineer: Good Hernandez MD Vitamin B1on 05-28-2024 Vitamin B1 168 nmol/L Normal 70-180 [facility] Comment on above: Result Comment: (NOT E) INTERPRETIVE INFORMATION: Vitamin B1, Whole Blood This assay measures the concentration of thiamine diphosphate (TDP), the primary active form of vitamin B1. Approximately 90 percent of vitamin B1 present in whole blood is TDP. Thiamine and thiamine monophosphate, which comprise the remaining 10 percent, are not measured. This test was developed and its performance characteristics determined by [facility]. It has not been cleared or approved by the [place] Food and Drug Administration. This test was performed in a CLIA certified laboratory and is intended for clinical purposes. Performed By: [facility] [address] [place] [address] [employer] Ammonia Pump Operator: Yves Perez MD, PhD CLIA Number: [id number] Performed By: #### D AU #### [address] [place] [address] Senior Reservoir Engineer: Good Hernandez MD Vitamin Aon 05-26-2024 Interpretation Normal Normal [facility] Comment on above: Result Comment: (NOT E) This test was developed and its performance characteristics determined by [facility]. It has not been cleared or approved by the [place] Food and Drug Administration. This test was performed in a CLIA certified laboratory and is intended for clinical purposes. Performed By: [facility] [address] [place] [address] Tar And Ammonia Pump Operator: Yves Perez MD, PhD CLIA Number: [id number] Performed By: #### D AU #### [facility] [address] [place] [address] [place] [place], [place] [phone] Senior Reservoir Engineer: Good Hernandez MD Retinol (Vitamin A) 0.48 mg/L Normal 0.30-1.20 [facility] Comment on above: Performed By: #### D AU #### [facility] [address] [place] [address] Senior Reservoir Engineer: Good Hernandez MD Retinyl Palmitate <0.02 Normal 0.00-0.10 [facility] Comment on above: Performed By: #### D AU #### [facility] [address] [place] [address] Senior Reservoir Engineer: Good Hernandez MD Zinc, Serumon 05-26-2024 Zinc, Serum 96.7 ug/dL Normal 60.0-120.0 [facility] Comment on above: Result Comment: [...] zinc concentrations may interfere with copper absorption. This test was developed and its performance characteristics determined by [facility]. It has not been cleared or approved by the [place] Food and Drug Administration. This test was performed in a CLIA certified laboratory and is intended for clinical purposes. Performed By: [facility] [address] [place] [address] [employer] Pump Operator: Yves Perez MD, PhD CLIA Number: [id number] Performed By: #### D AU #### [facility] [address] [place] [address] Senior Reservoir Engineer: Good Hernandez MD B12/Folate Panelon Cobalamin (Vitamin B12) [Mass/Vol] 580 pg/mL Normal 232-1245 [facility] Comment on above: Performed By: #### D AU #### [facility] [address] [place] [address] Senior Reservoir Engineer: Good Hernandez MD Folic Acid 12.5 ng/mL Normal 4.8-24.2 [facility] Comment on above: Performed By: #### D AU #### [facility] [address] [place] [address] Senior Reservoir Engineer: Good Hernandez MD CBC with Auto Differentialon 05-24-2024 Basophils (Bld) [#/Vol] 0.03 10*3/uL [facility] Basophils/100 WBC (Bld) 0 % 0 - 2 % [facility] Eosinophils (Bld) [#/Vol] 0.24 10*3/uL [facility] Eosinophils/100 WBC (Bld) 3 % 1 - 4 % [facility] Erythrocyte distribution width (RBC) [Ratio] 12.8 % 11.8 - 14.4 % [facility] Hematocrit (Bld) [Volume fraction] 37.7 % 36.3 - 47.1 % [facility] Hemoglobin (Bld) [Mass/Vol] 12.8 g/dL 11.9 - 15.1 g/dL [facility] Immature granulocytes (Bld) [#/Vol] 0.05 10*3/uL [facility] Immature granulocytes/100 WBC (Bld) 1 % High 0 [facility] Interpretation and review of laboratory results Abnormal [facility] Lymphocytes/100 WBC (Bld) 26 % 24 - 43 % [facility] Lymphocytes/100 WBC (Bld) 1.94 % [facility] MCH (RBC) [Entitic mass] 30.3 pg 25.2 - 33.5 pg [facility] MCHC (RBC) [Mass/Vol] 34.0 g/dL 28.4 - 34.8 g/dL [facility] MCV (RBC) [Entitic vol] 89.3 fL 82.6 - 102.9 fL [facility] Monocytes/100 WBC (Bld) 6 % 3 - 12 % [facility] Monocytes/100 WBC (Bld) 0.46 % [facility] Neutrophils/100 WBC (Bld) 64 % 36 - 65 % [facility] Nucleated RBC/100 WBC (Bld) [Ratio] 0.0 % 0.0 per 100 WBC [facility] Platelet mean volume (Bld) [Entitic vol] 10.7 fL 8.1 - 13.5 fL [facility] Platelets (Bld) [#/Vol] 230 10*3/uL [facility] RBC (Bld) [#/Vol] 4.22 10*6/uL 3.95 - 5.1 1 m/uL [facility] Segmented neutrophils/100 WBC (Bld) 4.75 % [facility] WBC other (Bld) [#/Vol] 7.5 [facility] CBC with Diffon 05-24-2024 Abs. Basophil 0.03 k/uL Normal 0.00-0.20 [facility] Comment on above: Performed By: #### SUYAPA BENSON, FEBC, VD25, PTHNCA #### [place] [address] [place], [place] [phone] Senior Reservoir Engineer: Bobby Flanagan MD #### PETRA CASH, CP #### [address] [place] [address] Senior Reservoir Engineer: Good Hernandez MD #### RENA ALFONSO AVITB1, LULU #### [facility] [address] [place] [address] Senior Reservoir Engineer: Jeffy Benz MD Abs.Imm.Granulocyte 0.05 k/uL Normal 0.00-0.30 [facility] Comment on above: Performed By: #### F SUYAPA YAN, FEBC, VD25, PTHNCA #### [place] [address] [place] [address] Senior Reservoir Engineer: Bobby Flanagan MD #### PETRA CASH, CP #### [address] [place] [address] Senior Reservoir Engineer: Good Hernandez MD #### RENA ALFONSO AVITBWinnie, AZN #### [facility] [address] [place], [place] [id number] Senior Reservoir Engineer: Jeffy Benz MD Abs.Neutrophil (Seg) 4.75 k/uL Normal 1.50-8.10 [facility] Comment on above: Performed By: #### F YURIY, GLYHGB, FEBC, VD25, PTHNCA #### [address] [id number] Senior Reservoir Engineer: Bobby Flanagan MD #### PETRA CASH, CP #### [address] [place] [address] Senior Reservoir Engineer: Good Hernandez MD #### RENA ALFONSO AVITB1, AZN #### [facility] [address] [place], [place] [id number] Senior Reservoir Engineer: Jeffy Benz MD Basophils/100 WBC (Bld) 0 % Normal 0-2 [facility] Comment on above: Performed By: #### F YURIY, SUYAPA, FEMAO, VD25, PTHNCA #### [address] [phone] Senior Reservoir Engineer: Bobby Flanagan MD #### PETRA CASH, CP #### [address] [place] [address] Senior Reservoir Engineer: Good Hernandez MD #### RENA ALFONSO AVITBWinnie, AZN #### [facility] [address] [place], [place] [id number] Senior Reservoir Engineer: Jeffy Benz MD Eosinophils (Bld) [#/Vol] 0.24 10*3/uL Normal 0.00-0.44 [facility] Comment on above: Performed By: #### F YURIY, GLYHGB, FEBC, VD25, PTHNCA #### [facility] [address] [place] [address] Senior Reservoir Engineer: Bobby Flanagan MD #### PETRA CASH, CP #### [address] [place], [place] [phone] Senior Reservoir Engineer: Good Hernandez MD #### RENA ALFONSO AVITB1, AZN #### [facility] [address] [place] [address] Senior Reservoir Engineer: Jeffy Benz MD Eosinophils/100 WBC (Bld) 3 % Normal 1-4 [facility] Comment on above: Performed By: #### F NERI YANB, FEBC, VD25, PTHNCA #### [facility] [address] [place], [place] [phone] Senior Reservoir Engineer: Bobby Flanagan MD #### PETRA CASH, CP #### [address] [place] [address] Senior Reservoir Engineer: Good Hernandez MD #### RENA ALFONSO AVITB1, AZN #### [facility] [address] [place], [place] [phone] Senior Reservoir Engineer: Jeffy Benz MD Erythrocyte distribution width (RBC) [Ratio] 12.8 % Normal 11.8-14.4 [facility] Comment on above: Performed By: #### F YURIY, GLYHGB, FEBC, VD25, PTHNCA #### [facility] [address] [place] [address] Senior Reservoir Engineer: Bobby Flanagan MD #### PETRA CASH, CP #### [address] [place] [address] Senior Reservoir Engineer: Good Hernandez MD #### RENA ALFONSO AVITB1, AZN #### [facility] [address] [place], [place] [id number] Senior Reservoir Engineer: Jeffy Benz MD Hematocrit (Bld) [Volume fraction] 37.7 % Normal 36.3-47.1 [facility] Comment on above: Performed By: #### F YURIY, GLYHGB, FEBC, VD25, PTHNCA #### [facility] [place] [address] Senior Reservoir Engineer: Bobby Flanagan MD #### , CDP, CP #### [address] [place] [address] Senior Reservoir Engineer: Good Hernandez MD #### RENA ALFONSO AVITB1, BETHN #### [facility] [address] [place], [place] [id number] Senior Reservoir Engineer: Jeffy Benz MD Hemoglobin (Bld) [Mass/Vol] 12.8 g/dL Normal 11.9-15.1 [facility] Comment on above: Performed By: #### F YURIY, GLYHGB, FEBC, VD25, PTHNCA #### [address] [address] Senior Reservoir Engineer: Bobby Flanagan MD #### PETRA CASH, CP #### [address] [place] [address] Senior Reservoir Engineer: Good Hernandez MD #### RENA ALFONSO AVITB1, AZN #### [facility] [address] [place], [place] [phone] Senior Reservoir Engineer: Jeffy Benz MD Immature granulocytes/100 WBC (Bld) 1 % High 0 [facility] Comment on above: Performed By: #### F YURIY, GLYHGB, FEBC, VD25, PTHNCA #### [facility] [address] [place] [address] Senior Reservoir Engineer: Bobby Flanagan MD #### PETRA CASH, CP #### [facility] [address] [place] [address] Senior Reservoir Engineer: Good Hernandez MD #### RENA ALFONSO AVITB1, AZN #### [facility] [address] [place] [address] Senior Reservoir Engineer: Jeffy Benz MD Lymphocytes (Bld) [#/Vol] 1.94 10*3/uL Normal 1.10-3.70 [facility] Comment on above: Performed By: #### F YURIY, GLYHGB, FEBC, VD25, PTHNCA #### [place] [address] [place], [place] [phone] Senior Reservoir Engineer: Bobby Flanagan MD #### , PETRA, CP #### [address] [place] [address] Senior Reservoir Engineer: Good Hernandez MD #### RENA ALFONSO AVITB1, AZN #### [facility] [address] [place], [place] [phone] Senior Reservoir Engineer: Jeffy Benz MD Lymphocytes/100 WBC (Bld) 26 % Normal 24-43 [facility] Comment on above: Performed By: #### F YURIY, GLYHGB, FEBC, VD25, PTHNCA #### [place] [address] [place], [place] [phone] Senior Reservoir Engineer: Bobby Flanagan MD #### , CDP, CP #### [facility] [address] [place] [address] [place] [address] Senior Reservoir Engineer: Good Hernandez MD #### RENA ALFONSO AVITB1, AZN #### [facility] [address] [place], [place] [phone] Senior Reservoir Engineer: Jeffy Benz MD MCH (RBC) [Entitic mass] 30.3 pg Normal 25.2-33.5 [facility] Comment on above: Performed By: #### F YURIY, GLYHGB, FEBC, VD25, PTHNCA #### [address] [address] Senior Reservoir Engineer: Bobby Flanagan MD #### , CDP, CP #### [address] [place] [place] [address] Senior Reservoir Engineer: Good Hernandez MD #### RENA ALFONSO AVITB1, AZN #### [facility] [address] [place] [address] Senior Reservoir Engineer: Jeffy Benz MD MCHC (RBC) [Mass/Vol] 34.0 g/dL Normal 28.4-34.8 [facility] Comment on above: Performed By: #### F YURIY, GLYHGB, FEBC, VD25, PTHNCA #### [address] [phone] Senior Reservoir Engineer: Bobby Flanagan MD #### PETRA CASH, CP #### [address] [place] [place] [address] Senior Reservoir Engineer: Good Hernandez MD #### RENA ALFONSO AVITB1, AZN #### [facility] [address] [place], [place] [phone] Senior Reservoir Engineer: Jeffy Benz MD MCV (RBC) [Entitic vol] 89.3 fL Normal 82.6-102.9 [facility] Comment on above: Performed By: #### F YURIY, GLYHGB, FEBC, VD25, PTHNCA #### [address] [phone] Senior Reservoir Engineer: Bobby Flanagan MD #### MG, CDP, CP #### [address] [place] [address] Senior Reservoir Engineer: Good Hernandez MD #### AVITAS, ANICOT, AVITB1, AZN #### [facility] [address] [place] [address] Senior Reservoir Engineer: Jeffy Benz MD Monocytes (Bld) [#/Vol] 0.46 10*3/uL Normal 0.10-1.20 [facility] Comment on above: Performed By: #### F YURIY, GLYHGB, FEBC, VD25, PTHNCA #### [address] [address] Senior Reservoir Engineer: Bobby Flanagan MD #### MG, CDP, CP #### [facility] [address] [place] [address] Senior Reservoir Engineer: Good Hernandez MD #### RENA ALFONSO, AVITB1, AZN #### [facility] [address] [place], [place] [phone] Senior Reservoir Engineer: Jeffy Benz MD Monocytes/100 WBC (Bld) 6 % Normal 3-12 [facility] Comment on above: Performed By: #### F YURIY, GLYHGB, FEBC, VD25, PTHNCA #### [address] [phone] Senior Reservoir Engineer: Bobby Flanagan MD #### MG, CDP, CP #### [facility] [address] [place] [address] Senior Reservoir Engineer: Good Hernandez MD #### ANDRE ALFONSOICOT, AVITB1, AZN #### [facility] [address] [place], [place] [phone] Senior Reservoir Engineer: Jeffy Benz MD Neutrophil (Seg) 64 % Normal 36-65 [facility] Comment on above: Performed By: #### F YURIY, GLYHGB, FEBC, VD25, PTHNCA #### [address] [address] Senior Reservoir Engineer: Bobby Flanagan MD #### MG, PETRA, CP #### [facility] [address] [place] [phone] Senior Reservoir Engineer: Good Hernandez MD #### RENA ALFONSO, ASHLITB1, AZN #### [facility] [address] [place] [address] Senior Reservoir Engineer: Jeffy Benz MD NRBC Automated 0.0 per 100 WBC Normal 0.0 [facility] Comment on above: Performed By: #### F YURIY, GLYHGB, FEBC, VD25, PTHNCA #### [address] [phone] Senior Reservoir Engineer: Bobby Flanagan MD #### PETRA CASH, CP #### [facility] [address] [place] [address] [place] [address] Senior Reservoir Engineer: Good Hernandez MD #### RENA ALFONSO AVITB1, AZN #### [facility] [address] [place], [place] [phone] Senior Reservoir Engineer: Jeffy Benz MD Platelet mean volume (Bld) [Entitic vol] 10.7 fL Normal 8.1-13.5 [facility] Comment on above: Performed By: #### F YURIY, GLYHGB, FEBC, VD25, PTHNCA #### [facility] [address] [place] [phone] Senior Reservoir Engineer: Bobby Flanagan MD #### MG, CDP, CP #### [facility] [address] [place] [address] Senior Reservoir Engineer: Good Hernandez MD #### RENA ALFONSO, ASHLITB1, AZN #### [facility] [address] [place] [address] Senior Reservoir Engineer: Jeffy Benz MD Platelets (Bld) [#/Vol] 230 10*3/uL Normal 138-453 [facility] Comment on above: Performed By: #### F YURIY, GLYHGB, FEBC, VD25, PTHNCA #### [facility] [address] [place] [address] Senior Reservoir Engineer: Bobby Flanagan MD #### , CDP, CP #### [address] [place], [place] [phone] Senior Reservoir Engineer: Good Hernandez MD #### RENA ALFONSO, ASHLITB1, AZN #### [facility] [address] [place], [place] [phone] Senior Reservoir Engineer: Jeffy Benz MD RBC (Bld) [#/Vol] 4.22 10*6/uL Normal 3.95-5.11 [facility] Comment on above: Performed By: #### F YURIY, GLYHGB, FEBC, VD25, PTHNCA #### [address] [address] Senior Reservoir Engineer: Bobby Flanagan MD #### PETRA CASH, CP #### [address] [place], [place] [phone] Senior Reservoir Engineer: Good Hernandez MD #### RENA ALFONSO, ASHLITBWinnie, AZN #### [facility] [address] [place] [address] Senior Reservoir Engineer: Jeffy Benz MD WBC (Bld) [#/Vol] 7.5 10*3/uL Normal 3.5-11.3 [facility] Comment on above: Performed By: #### F YURIY, GLYHGB, FEBC, VD25, PTHNCA #### [facility] [address] [place] [address] Senior Reservoir Engineer: Bobby Flanagan MD #### PETRA CASH, CP #### [address] [place] [address] Senior Reservoir Engineer: Good Hernandez MD #### RENA ALFONSO AVITB1, AZN #### [facility] [address] [place], [place] [id number] Senior Reservoir Engineer: Jeffy Benz MD Comp Metabolic Profon 2023 Albumin [Mass/Vol] 4.0 g/dL Normal 3.5-5.2 [facility] Comment on above: Performed By: #### F YURIY, GLYHGB, FEBC, VD25, PTHNCA #### [address] [place], [place] [phone] Senior Reservoir Engineer: Bobby Flanagan MD #### PETRA CASH, CP #### [facility] [address] [place] [address] [place] [address] Senior Reservoir Engineer: Good Hernandez MD #### RENA ALFONSO AVITB1, AZN #### [facility] [address] [place], [place] [id number] Senior Reservoir Engineer: Jeffy Benz MD Albumin/Glob Ratio 1.5 Normal 1.0-2.5 [facility] Comment on above: Performed By: #### F YURIY, GLYHGB, FEBC, VD25, PTHNCA #### [address] [id number] Senior Reservoir Engineer: Bobby Flanagan MD #### PETRA CASH, CP #### [facility] [address] [place] [address] Senior Reservoir Engineer: Good Hernandez MD #### RENA ALFONSO AVITB1, AZN #### [facility] [address] [place] [address] Senior Reservoir Engineer: Jeffy Benz MD Alkaline Phos 105 U/L High 35-104 [facility] Comment on above: Performed By: #### F YURIY, GLYHGB, FEBC, VD25, PTHNCA #### [address] [place] [address] Senior Reservoir Engineer: Bobby Flanagan MD #### PETRA CASH, CP #### [address] [place], [place] [phone] Senior Reservoir Engineer: Good Hernandez MD #### RENA ALFONSO, ASHLITBWinnie, AZN #### [facility] [address] [place] [address] Senior Reservoir Engineer: Jeffy Benz MD ALT [Catalytic activity/Vol] 44 U/L High 5-33 [facility] Comment on above: Performed By: #### F YURIY, GLYHGB, FEBC, VD25, PTHNCA #### [address] [address] Senior Reservoir Engineer: Bobby Flanagan MD #### PETRA CASH, CP #### [address] [place] [address] Senior Reservoir Engineer: Good Hernandez MD #### RENA ALFONSO AVITB1, AZN #### [facility] [address] [place], [place] [id number] Senior Reservoir Engineer: Jeffy Benz MD Anion gap [Moles/Vol] 13 mmol/L Normal 9-17 [facility] Comment on above: Performed By: #### F YURIY, GLYHGB, FEBC, VD25, PTHNCA #### [address] [place] [address] Senior Reservoir Engineer: Bobby Flanagan MD #### PETRA CASH, CP #### [address] [place] [address] Senior Reservoir Engineer: Good Hernandez MD #### RENA ALFONSO, ASHLITB1, AZN #### [facility] [address] [place], [place] [id number] Senior Reservoir Engineer: Jeffy Benz MD AST [Catalytic activity/Vol] 37 U/L High <32 [facility] Comment on above: Performed By: #### F YURIY, GLYHGB, FEBC, VD25, PTHNCA #### [facility] [address] [place] [address] Senior Reservoir Engineer: Bobby Flanagan MD #### PETRA CASH, CP #### [facility] [address] [place] [address] [place], [place] [phone] Senior Reservoir Engineer: Good Hernandez MD #### RENA ALFONSO AVITB1, AZN #### [facility] [address] [place], [place] [id number] Senior Reservoir Engineer: Jeffy Benz MD Bilirubin [Mass/Vol] 0.3 mg/dL Normal 0.3-1.2 [facility] Comment on above: Performed By: #### F YURIY, GLYHGB, FEBC, VD25, PTHNCA #### [address] [address] Senior Reservoir Engineer: Bobby Flanagan MD #### PETRA CASH, CP #### [address] [place] [address] Senior Reservoir Engineer: Good Hernandez MD #### RENA ALFONSO AVITB1, AZN #### [facility] [address] [place], [place] [id number] Senior Reservoir Engineer: Jeffy Benz MD BUN/CRE Ratio 14 Normal 9-20 [facility] Comment on above: Performed By: #### F YURIY, GLYHGB, FEBC, VD25, PTHNCA #### [facility] [address] [place] [address] Senior Reservoir Engineer: Bobby Flanagan MD #### PETRA CASH, CP #### [address] [place] [address] Senior Reservoir Engineer: Good Hernandez MD #### RENA ALFONSO AVITB1, AZN #### [facility] [address] [place], [place] [id number] Senior Reservoir Engineer: Jeffy Benz MD Calcium [Mass/Vol] 9.4 mg/dL Normal 8.6-10.4 [facility] Comment on above: Performed By: #### F YURIY, GLYHGB, FEBC, VD25, PTHNCA #### [address] 1997608 Senior Reservoir Engineer: Bobby Flanagan MD #### PETRA CASH, CP #### [address] [place] [address] Senior Reservoir Engineer: Good Hernandez MD #### RENA ALFONSO AVITB1, AZN #### [facility] [address] [place], [place] [id number] Senior Reservoir Engineer: Jeffy Benz MD Chloride [Moles/Vol] 104 mmol/L Normal 98-107 [facility] Comment on above: Performed By: #### F YURIY, GLYHGB, FEBC, VD25, PTHNCA #### [address] [address] Senior Reservoir Engineer: Bobby Flanagan MD #### MG CDP, CP #### [facility] [address] [place] [address] Senior Reservoir Engineer: Good Hernandez MD #### RENA ALFONSO AVITB1, AZN #### [facility] [address] [place], [place] [id number] Senior Reservoir Engineer: Jeffy Benz MD CO2 [Moles/Vol] 24 mmol/L Normal 20-31 [facility] Comment on above: Performed By: #### F YURIY, GLYHGB, FEBC, VD25, PTHNCA #### [address] [phone] Senior Reservoir Engineer: Bobby Flanagan MD #### PETRA CASH, CP #### [address] [place] [address] Senior Reservoir Engineer: Good Hernandez MD #### RENA ALFONSO AVITB1, AZN #### [facility] [address] [place], [place] [id number] Senior Reservoir Engineer: Jeffy Benz MD Creatinine [Mass/Vol] 0.8 mg/dL Normal 0.5-0.9 [facility] Comment on above: Performed By: #### F YURIY, GLYHGB, FEBC, VD25, PTHNCA #### [address] [phone] Senior Reservoir Engineer: Bobby Flanagan MD #### PETRA CAHS, CP #### [address] [place] [address] Senior Reservoir Engineer: Good Hernandez MD #### RENA ALFONSO AVITB1, AZN #### [facility] [address] [place], [place] [id number] Senior Reservoir Engineer: Jeffy Benz MD GFR/1.73 sq M.predicted among non-blacks MDRD (S/P/Bld) [Vol rate/Area] mL/min/{1.73_m2} Normal >60 [facility] Comment on above: Result Comment: These results are not intended for use in patients <18 years of age. eGFR results are calculated without a race factor using the 2020 CKD-EPI equation. Careful clinical correlation is recommended, particularly when comparing to results calculated using previous equations. The CKD-EPI equation is less accurate in patients with extremes of muscle mass, extra-renal metabolism of creatine, excessive creatine ingestion, or following therapy that affects renal tubular secretion. Performed By: #### F YURIY, GLYHGB, FEBC, VD25, PTHNCA #### [facility] [address] [place] [address] Senior Reservoir Engineer: Bobby Flanagan MD #### PETRA CASH, CP #### [address] [place], [place] [phone] Senior Reservoir Engineer: Good Hernandez MD #### RENA ALFONSO, ASHLITB1, AZN #### [facility] [address] [place], [place] [id number] Senior Reservoir Engineer: Jeffy Benz MD Glucose [Mass/Vol] 95 mg/dL Normal 70-99 [facility] Comment on above: Performed By: #### F YURIY, GLYHGB, FEBC, VD25, PTHNCA #### [address] [phone] Senior Reservoir Engineer: Bobby Flanagan MD #### PETRA CASH, CP #### [address] [place] [address] Senior Reservoir Engineer: Good Hernandez MD #### RENA ALFONSO AVITB1, AZN #### [facility] [address] [place] [address] Senior Reservoir Engineer: Jeffy Benz MD Potassium [Moles/Vol] 4.1 mmol/L Normal 3.7-5.3 [facility] Comment on above: Performed By: #### F YURIY, GLYHGB, FEBC, VD25, PTHNCA #### [address] [address] Senior Reservoir Engineer: Bobby Flanagan MD #### PETRA CASH, CP #### [address] [place] [address] Senior Reservoir Engineer: Good Hernandez MD #### RENA ALFONSO, ASHLITB1, AZN #### [facility] [address] [place] [address] Senior Reservoir Engineer: Jeffy Benz MD Protein [Mass/Vol] 6.7 g/dL Normal 6.4-8.3 [facility] Comment on above: Performed By: #### F YURIY, GLYHGB, FEBC, VD25, PTHNCA #### [facility] [address] [place] [address] Senior Reservoir Engineer: Bobby Flanagan MD #### PETRA CASH, CP #### [address] [place], [place] [phone] Senior Reservoir Engineer: Good Hernandez MD #### RENA ALFONSO AVITB1, AZN #### [facility] [address] [place] [address] Senior Reservoir Engineer: Jeffy Benz MD Sodium [Moles/Vol] 141 mmol/L Normal 135-144 [facility] Comment on above: Performed By: #### F YURIY, GLYHGB, FEBC, VD25, PTHNCA #### [address] [place] [address] Senior Reservoir Engineer: Bobby Flanagan MD #### PETRA CASH, CP #### [address] [place] [address] Senior Reservoir Engineer: Good Hernandez MD #### RENA ALFONSO AVITB1, AZN #### [facility] [address] [place] [address] Senior Reservoir Engineer: Jeffy Benz MD Urea nitrogen [Mass/Vol] 11 mg/dL Normal 6-20 [facility] Comment on above: Performed By: #### F YURIY, GLYHGB, FEBC, VD25, PTHNCA #### [facility] [address] [place] [address] Senior Reservoir Engineer: Bobby Flanagan MD #### PETRA CASH, CP #### [address] [place] [address] Senior Reservoir Engineer: Good Hernandez MD #### RENA ALFONSO AVITB1, LULU #### [facility] [address] [place] [address] Senior Reservoir Engineer: Jeffy Benz MD Comprehensive Metabolic Pane [facility] 05-24-2024 Albumin [Mass/Vol] 4.0 g/dL 3.5 - 5.2 g/dL [facility] Albumin/Globulin [Mass ratio] 1.5 {ratio} 1.0 - 2.5 [facility] ALP [Catalytic activity/Vol] 105 U/L High 35 - 104 U/L [facility] ALT [Catalytic activity/Vol] 44 U/L High 5 - 33 U/L [facility] Anion gap [Moles/Vol] 13 mmol/L 9 - 17 mmol/L [facility] AST [Catalytic activity/Vol] 37 U/L High NINF - 32 U/L [facility] Bilirubin [Mass/Vol] 0.3 mg/dL 0.3 - 1.2 mg/dL [facility] Calcium [Mass/Vol] 9.4 mg/dL 8.6 - 10. 4 mg/dL [facility] Chloride [Moles/Vol] 104 mmol/L 98 - 107 mmol/L [facility] CO2 [Moles/Vol] 24 mmol/L 20 - 31 mmol/L [facility] Creatinine [Mass/Vol] 0.8 mg/dL 0.5 - 0.9 mg/dL [facility] Est, Glom Filt Rate - [facility] Comment on above: These results are not intended for use in patients <18 years of age. eGFR results are calculated without a race factor using the 2020 CKD-EPI equation. Careful clinical correlation is recommended, particularly when comparing to results calculated using previous equations. The CKD-EPI equation is less accurate in patients with extremes of muscle mass, extra-renal metabolism of creatine, excessive creatine ingestion, or following therapy that affects renal tubular secretion. Glucose [Mass/Vol] 95 mg/dL 70 - 99 mg/dL [facility] Interpretation and review of laboratory results Abnormal [facility] Potassium [Moles/Vol] 4.1 mmol/L 3.7 - 5.3 mmol/L [facility] Protein [Mass/Vol] 6.7 g/dL 6.4 - 8.3 g/dL [facility] Sodium [Moles/Vol] 141 mmol/L 135 - 144 mmol/L [facility] Urea nitrogen [Mass/Vol] 11 mg/dL 6 - 20 mg/dL [facility] Urea nitrogen/Creatinine [Mass ratio] 14 mg/mg 9 - 20 [facility] Drug Scr, Abuse, Uron 2023 Amphetamine(s),Ur Positive Abnormal NEG [facility] Comment on above: Result Comment: (Positive cutoff 1000 ng/mL) Performed By: #### D AU #### [address] [place] [address] Senior Reservoir Engineer: Good Hernandez MD Barbiturate(s),Ur Negative Normal NEG [facility] Comment on above: Result Comment: (Positive cutoff 200 ng/mL) Performed By: #### D AU #### [address] [place] [address] Senior Reservoir Engineer: Good Hernandez MD Benzodiazepine(s) Negative Normal NEG [facility] Comment on above: Result Comment: (Positive cutoff 200 ng/mL) Performed By: #### D AU #### [address] [place] [address] Senior Reservoir Engineer: Good Hernandez MD Buprenorphrine, Ur Negative Normal NEG [facility] Comment on above: Result Comment: (Positive cutoff 5 ng/ml) Performed By: #### D AU #### [address] [place] [address] Senior Reservoir Engineer: Good Hernandez MD Cannabinoid(s),Ur Negative Normal NEG [facility] Comment on above: Result Comment: (Positive cutoff 50 ng/mL) Performed By: #### D AU #### [facility] [address] [place] [address] [place], [place] [phone] Senior Reservoir Engineer: Good Hernandez MD Cocaine Metabolite Negative Normal [facility] Comment on above: Result Comment: (Positive cutoff 300 ng/mL) Performed By: #### D AU #### [address] [place] [address] Senior Reservoir Engineer: Good Hernandez MD Fentanyl, Urine Negative Normal NEG [facility] Comment on above: Result Comment: (Positive cutoff 5 ng/ml) Performed By: #### D AU #### [address] [place], [place] [phone] Senior Reservoir Engineer: Good Hernandez MD Interpretive Info Assay provides medical screening only. The absence of expected drug(s) and/or Normal [facility] Comment on above: Result Comment: meta bolite(s) may indicate diluted or adulterated urine, limitations of testing or timing of collection. Testing for legal purposes should be confirmed by another method. To request confirmation of test result, please call the lab within 7 days of sample submission. Performed By: #### D AU #### [address] [place], [place] [phone] Senior Reservoir Engineer: Good Hernandez MD Methadone Ql (U) Negative Normal [facility] Comment on above: Result Comment: (Positive cutoff 300 ng/mL) Performed By: #### D AU #### [address] [place], [place] [phone] Senior Reservoir Engineer: Good Hernandez MD Opiate(s), Ur Negative Normal NEG [facility] Comment on above: Result Comment: (Positive cutoff 300 ng/mL) Performed By: #### D AU #### [address] [place], [place] [phone] Senior Reservoir Engineer: Good Hernandez MD Oxycodone, Urine Negative Normal NEG [facility] Comment on above: Result Comment: (Positive cutoff 100 ng/mL) Performed By: #### D AU #### [facility] [address] [place] [address] Senior Reservoir Engineer: Good Hernandez MD Phencyclidine, Ur Negative Normal NEG [facility] Comment on above: Result Comment: (Positive cutoff 25 ng/mL) Performed By: #### D AU #### [facility] [address] [place] [address] Senior Reservoir Engineer: Good Hernandez MD Ferritinon 05-24-2024 Ferritin [Mass/Vol] 80 ng/mL 13 - 150 ng/mL [facility] Comment on above: FERRITIN Reference Ranges: Adult Males 20 - 60 years: 30 - 400 ng/mL Adult females 17 - 60 years: 13 - 150 ng/mL Adults greater than 60 years: no established reference range Pediatrics: no established reference range Ferritin [Mass/Vol] 80 ng/mL Normal 13-150 [facility] Comment on above: Result Comment: FERRITIN Reference Ranges: Adult Males 20 - 60 years: 30 - 400 ng/mL Adult females 17 - 60 years: 13 - 150 ng/mL Adults greater than 60 years: no established reference range Pediatrics: no established reference range Performed By: #### D AU #### [facility] [address] [place] [address] Senior Reservoir Engineer: Good Hernandez MD Hemoglobin A1Con 05-24-2024 Average glucose Estimated from glycated hemoglobin (Bld) [Mass/Vol] 100 mg/dL [facility] Comment on above: The ADA and AACC rec ommend providing the estimated average glucose result to permit better patient understanding of their HBA1c result. HbA1c (Bld) [Mass fraction] 5.1 % 4.0 - 6.0 % [facility] Glucose [Mass/Vol] 100 mg/dL Normal [facility] Comment on above: Result Comment: The ADA and AACC recommend providing the estimated average glucose result to permit better patient understanding of their HBA1c result. Performed By: #### F YURIY, GLYHGB, FEBC, VD25, PTHNCA #### [facility] [address] [place] [address] Senior Reservoir Engineer: Bobby Flanagan MD #### PETRA CASH, CP #### [address] [place] [address] Senior Reservoir Engineer: Good Hernandez MD #### RENA ALFONSO, AVITB1, AZN #### [facility] [address] [place], [place] [id number] Senior Reservoir Engineer: Jeffy Benz MD HbA1c (Bld) [Mass fraction] 5.1 % Normal 4.0-6.0 [facility] Comment on above: Performed By: #### F YURIY, GLYHGB, FEBC, VD25, PTHNCA #### [facility] [address] [place], [place] [phone] Senior Reservoir Engineer: Bobby Flanagan MD #### PETRA CASH, CP #### [address] [place] [phone] Senior Reservoir Engineer: Good Hernandez MD #### RENA ALFONSO, ASHLITB1, AZN #### [facility] [address] [place] [address] Senior Reservoir Engineer: Jeffy Benz MD Iron Binding Cap.on 05-24-20 24 % Fe Saturation 17 % Low 20-55 [facility] Comment on above: Performed By: #### F YURIY, GLYHGB, FEBC, VD25, PTHNCA #### [facility] [address] [place], [place] [phone] Senior Reservoir Engineer: Bobby Flanagan MD #### PETRA CASH, CP #### [address] [place] [address] Senior Reservoir Engineer: Good Hernandez MD #### RENA ALFONSO, AVITB1, AZN #### [facility] [address] [place] [address] Senior Reservoir Engineer: Jeffy Benz MD Iron [Mass/Vol] 61 ug/dL Normal 37-145 [facility] Comment on above: Performed By: #### F YURIY, GLYHGB, FEBC, VD25, PTHNCA #### [address] [address] Senior Reservoir Engineer: Bobby Flanagan MD #### MG CDP, CP #### [facility] [address] [place] [address] Senior Reservoir Engineer: Good Hernandez MD #### RENA ALFONSO, ASHLITB1, AZN #### [facility] [address] [place], [place] [id number] Senior Reservoir Engineer: Jeffy Benz MD Total Fe Binding Cap 355 ug/dL Normal 250-450 [facility] Comment on above: Performed By: #### F YURIY, GLYHGB, FEBC, VD25, PTHNCA #### [address] [address] Senior Reservoir Engineer: Bobby Flanagan MD #### PETRA CASH, CP #### [address] [place] [address] Senior Reservoir Engineer: Good Hernandez MD #### REAN ALFONSO, ASHLITB1, AZN #### [facility] [address] [place], [place] [id number] Senior Reservoir Engineer: Jeffy Benz MD Unbound Fe Bind Cap 294 ug/dL Normal 112-347 [facility] Comment on above: Performed By: #### F YURIY, GLYHGB, FEBC, VD25, PTHNCA #### [address] [address] Senior Reservoir Engineer: Bobby Flanagan MD #### MG, CDP, CP #### [facility] [address] [place] [address] Senior Reservoir Engineer: Good Hernandez MD #### RENA ALFONSO, ASHLITB1, AZN #### [facility] [address] [place] [address] Senior Reservoir Engineer: Jeffy Benz MD Iron and TIBCon 05-24-2024 Interpretation and review of laboratory results Abnormal [facility] Iron [Mass/Vol] 61 ug/dL 37 - 145 ug/dL [facility] Iron binding capacity [Mass/Vol] 355 ug/dL 250 - 450 ug/dL [facility] Iron saturation [Mass fraction] 17 % Low 20 - 55 % [facility] UIBC 294 ug/dL 112 - 347 ug/dL [facility] Lipid Panelon 05-24-2024 Cholesterol [Mass/Vol] 176 mg/dL 0 - 199 mg/dL [facility] Comment on above: Cholesterol Guidelines: <200 Desirable 200-240 Borderline >240 Undesirable Cholesterol in HDL [Mass/Vol] 45 mg/dL 40 - PINF mg/dL [facility] Comment on above: HDL Guidelines: <40 Undesirable 40-59 Borderline >59 Desirable Cholesterol in LDL [Mass/Vol] 101 mg/dL High 0 - 100 mg/dL [facility] Comment on above: LDL Guidelines: <100 Desirable 100-129 Near to/above Desirable 130-159 Borderline >159 Undesirable Direct (measured) LDL and calculated LDL are not interchangeable tests. Cholesterol in VLDL [Mass/Vol] 29 mg/dL [facility] Cholesterol.total/C holesterol in HDL [Mass ratio] 4.0 {ratio} [facility] Interpretation and review of laboratory results Abnormal [facility] Triglyceride [Mass/Vol] 146 mg/dL NINF - 150 mg/dL [facility] Comment on above: Triglyceride Guidelines: <150 Desirable 150-199 Borderline 200-499 High >499 Very high Based on AHA Guidelines for fasting triglyceride, July 2012. [facility] Lipid Profileon 05-24-2024 Cholesterol [Mass/Vol] 176 mg/dL Normal 0-199 [facility] Comment on above: Result Comment: Cholesterol Guidelines: <200 Desirable 200-240 Borderline >240 Undesirable Performed By: #### L IPR #### [address] [address] Senior Reservoir Engineer: Bobby Flanagan MD Cholesterol in HDL [Mass/Vol] 45 mg/dL Normal >40 [facility] Comment on above: Result Comment: HDL Guidelines: <40 Undesirable 40-59 Borderline >59 Desirable Performed By: #### L IPR #### [address] [address] Senior Reservoir Engineer: Bobby Flanagan MD Cholesterol in LDL [Mass/Vol] 101 mg/dL High 0-100 [facility] Comment on above: Result Comment: LDL Guidelines: <100 Desirable 100-129 Near to/above Desirable 130-159 Borderline >159 Undesirable Direct (measured) LDL and calculated LDL are not interchangeable tests. Performed By: #### L IPR #### [facility] [address] [place] [address] Senior Reservoir Engineer: Bobby Flanagan MD Cholesterol in VLDL [Mass/Vol] 29 mg/dL Normal [facility] Comment on above: Performed By: #### L IPR #### [facility] [address] [place] [address] Senior Reservoir Engineer: Bobby Flanagan MD Cholesterol.total/C holesterol in HDL [Mass ratio] 4.0 {ratio} Normal [facility] Comment on above: Performed By: #### L IPR #### [facility] [address] [place] [address] Senior Reservoir Engineer: Bobby Flanagan MD Triglyceride [Mass/Vol] 146 mg/dL Normal <150 [facility] Comment on above: Result Comment: Triglyceride Guidelines: <150 Desirable 150-199 Borderline 200-499 High >499 Very high Based on AHA Guidelines for fasting triglyceride, July 2012. Performed By: #### L IPR #### [facility] [address] [place] [address] Senior Reservoir Engineer: Bobby Flanagan MD Magnesiumon 05-24-2024 Magnesium [Mass/Vol] 1.8 mg/dL 1.6 - 2.6 mg/dL [facility] Magnesium [Mass/Vol] 1.8 mg/dL Normal 1.6-2.6 [facility] Comment on above: Performed By: #### F YURIY, GLYHGB, FEBC, VD25, PTHNCA #### [facility] [address] [place] [address] Senior Reservoir Engineer: Bobby Flanagan MD #### MG CDP, CP #### [facility] [address] [place] [address] [place] [address] Senior Reservoir Engineer: Good Hernandez MD #### RENA ALFONSO AVITB1, AZN #### [facility] [address] [place] [address] Senior Reservoir Engineer: Jeffy Benz MD No Panel Informationon 05-24 [facility] PTH, Intacton 05-24-2024 Parathyrin.intact [Mass/Vol] 50.0 pg/mL 15 - 65 pg/mL [facility] PTH, Intact 50.0 pg/mL Normal 15-65 [facility] Comment on above: Performed By: #### F YURIY, GLYHGB, FEBC, VD25, PTHNCA #### [id number] [place], [place] [phone] Senior Reservoir Engineer: Bobby Flanagan MD #### PETRA CASH, CP #### [facility] [address] [place] [address] [place] [address] Senior Reservoir Engineer: Good Hernandez MD #### RENA ALFONSO AVITB1, AZN #### [facility] [address] [place] [address] Senior Reservoir Engineer: Jeffy Benz MD TSHon 05-24-2024 TSH Qn 3.59 m[IU]/L [facility] Thyroid Stim. Horm.on 2023 Thyroid Stim. Horm. 3.59 uIU/mL Normal 0.30-5.00 [facility] Comment on above: Performed By: #### T #### [facility] [address] [place] [address] Senior Reservoir Engineer: Good Hernandez MD Urine Drug Screenon 05-24-20 24 Amphetamines Ql (U) Positive Abnormal NEGATIVE [facility] Comment on above: (Positive cutoff 1000 ng/mL) Barbiturates Screen Ql (U) Negative NEGATIVE [facility] Comment on above: (Positive cutoff 200 ng/mL) Benzodiazepines Ql (U) Negative NEGATIVE [facility] Comment on above: (Positive cutoff 200 ng/mL) Buprenorphine Ql (U) Negative NEGATIVE [facility] Comment on above: (Positive cutoff 5 ng/ml) Cannabinoids Screen Ql (U) Negative NEGATIVE [facility] Comment on above: (Positive cutoff 50 ng/mL) Cocaine Ql (U) Negative NEGATIVE [facility] Comment on above: (Positive cutoff 300 ng/mL) fentaNYL Ql (U) Negative NEGATIVE [facility] Comment on above: (Positive cutoff 5 ng/ml) Interpretation and review of laboratory results Abnormal [facility] Methadone Ql (U) Negative NEGATIVE [facility] Comment on above: (Positive cutoff 300 ng/mL) Opiates Screen Ql (U) Negative NEGATIVE [facility] Comment on above: (Positive cutoff 300 ng/mL) oxyCODONE Ql (U) Negative NEGATIVE [facility] Comment on above: (Positive cutoff 100 ng/mL) Phencyclidine Ql (U) Negative NEGATIVE [facility] Comment on above: (Positive cutoff 25 ng/mL) Test Information Assay provides medical screening only. The absence of expected drug(s) and/or metabolite(s) may indicate diluted or adulterated urine, limitations of testing or timing of collection. [facility] Comment on above: Testing for legal pu rposes should be confirmed by another method. To request confirmation of test result, please call the lab within 7 days of sample submission. [facility] Vitamin B12 & Folateon 05-24 Cobalamin (Vitamin B12) [Mass/Vol] 580 pg/mL 232 - 1245 pg/mL [facility] Folate [Mass/Vol] 12.5 ng/mL 4.8 - 24.2 ng/mL [facility] Vitamin D 25 Hydroxyon 05-24 25-hydroxyvitamin D3 [Mass/Vol] 33.1 ng/mL 30.0 - 100.0 ng/mL [facility] Comment on above: Reference Range: Vitamin D status Range Deficiency <20 ng/mL Mild Deficiency 20-30 ng/mL Sufficiency 30-100 ng/mL Toxicity >100 ng/mL Vitamin D 25 OHon 05-24-2024 Vitamin D 25 OH 33.1 ng/mL Normal 30.0-100.0 [facility] Comment on above: Result Comment: Reference Range: Vitamin D status Range Deficiency <20 ng/mL Mild Deficiency 20-30 ng/mL Sufficiency 30-100 ng/mL Toxicity >100 ng/mL Performed By: #### D AU #### [facility] [address] [place] [address] Senior Reservoir Engineer: Good Hernandez MD XR CHEST (2 VW)on 05-24-2024 XR CHEST (2 VW) EXAMINATION: TWO XRAY VIEWS OF THE CHEST 05/24/2024 9:50 am COMPARISON: None. HISTORY: ORDERING SYSTEM PROVIDED HISTORY: Dyspnea on exertion FINDINGS: The lungs are without acute focal process. There is no effusion or pneumothorax. The cardiomediastinal silhouette is without acute process. The osseous structures are without acute process. IMPRESSION: No acute process. Interpreted by: Doug Alva MD Signed by: Doug Alva MD 05/24/24 Final result Normal [facility] Surgical Pathology Reporton 05-20-2024 Surgical Pathology Report (NOTE) Path Number: [id number] -- Diagnosis -- STOMACH, BIOPSIES: - MILD CHRONIC GASTRITIS. - NEGATIVE FOR HELICOBACTER PYLORI INFECTION AND INTESTINAL METAPLASIA. Mazin Franklin M.D. Electronically Signed [facility]/05/23/2024 Clinical Information Pre-Op Diagnosis: GASTROESOPHAGEAL REFLUX DISEASE, OBESITY Operative Findings: STOMACH BIOPSY Operation Performed: EGD BIOPSY mj Source of Specimen A: STOMACH BIOPSY R/O H. PYLORI Gross Description BOO LIU, STOMACH BIOPSY Received in formalin are two peña-white tissue fragments from 0.2 to 0.3 cm and are 0.5 x 0.2 x 0.2 cm in aggregate. Entirely 1cs. jj tm Mazin Franklin M.D./mj:05/20/2024 Microscopic Description Microscopic examination performed. Processing Lab: [address] [address] Interpretation Performed at [address] [address] SURGICAL PATHOLOGY CONSULTATION Patient Name: BOO LIU [facility] Rec: [id number] [facility] [employer] [facility] ANATOMIC PATHOLOGY [address] [place] [address]. [address] Normal [facility] Dylan 03-30-2024 L Specimen: [id number] Received: 03/31/24 Status: GRETA Cobb Num: [id number] Spec Type: Surgical Subm Dr: Will Mendoza Tissues: A Uterus w/ or w/o tubes ovaries except neoplastic or prolap (CERVIX, TRACY FT Procedures: HE/12, Gross/Micro L5 Age/ Patient Sex Location Account Attending Physician LiuBoo Lina 39/F LABELL [id number] Will Mendoza SPEC NUM: [id number] RECD: 03/31/24 STATUS: GRETA JORDYN NUM: [id number] CELIO: 03/30/[address]: Will Mendoza ENTERED: 03/31/24 [facility] DR: Jayla,Lab SPEC TYPE: Surgical DEPT: JOCELYNE ESPINOZA ORDERED: HE/12, Gross/Micro L5 ORDERED: HE/12, Gross/Micro L5 Pathological Diagnosis Uterus, cervix, and bilateral fallopian tubes, total hysterectomy with bilateral salpingectomy: -The apparently slightly roughened or disrupted cervix with mild chronic cervicitis, includi ng patchy moderate squamous metaplasia with associated atypical squamous metaplasia, favoring reactive atypia, likely to the past surgical (curettage) procedure without malignancy identified -Corpus with slightly disordered proliferative endometrium of the mid phase type without hyperplasia or atypia, also with focal mild superficial denudation or superficial hemorrhage of mucosa per suggested nonspecific degenerative effect of past ablation -Incidental occasional mild superficial adenomyosis -Incidental mild nonspecific fibrous thickening of serosa -Bilateral fimbriated fallopian tubes without significant histopathological changes, except occasional tiny inclusion cysts of the [place] type Clinical Information Menorrhagia, dyspareunia, pelvic pain, dysmenorrhea. Gross Description Received in formalin, labeled with the patient's name, date of and uterus, cervix and bilateral fallopian tubes is a 230.9 g uterus with attached cervix and detached, undesignated fimbriated fallopian tubes (arbitrarily assigned as tube #1 and tube #2). The uterus measures, 8.1 cm cornu to cornu, 11.4 cm fundus to os, 7.1 cm anterior-posterior, -------- Specimen: [id number] Received: 03/31/24 Status: GRETA Cobb Num: [id number] Spec Type: Surgical Subm Dr: Will Mendoza Tissues: A Uterus w/ or w/o tubes ovaries except neoplastic or prolap (CERVIX, TRACY FT Procedures: , Gross/Micro L5 -------- Patient: Boo Liu [id number] (Continued) -------- Specimen: [id number] Received: 03/31/24 (Continued) Gross Description (Continued) Signed (signature on file) Casie Myrick MD 04/02/24 1756 -------- Specimen: [id number] Received: 03/31/24 Status: GRETA Cobb Num: [id number] Spec Type: Surgical Subm Dr: Will Mendoza Tissues: A Uterus w/ or w/o tubes ovaries except neoplastic or prolap (CERVIX, TRACY FT Procedures: , Gross/Micro L5 -------- Patient: Boo Liu [id number] (Continued) -------- Specimen: [id number] Received: 03/31/24 (Continued) Gross Description (Continued) covered by peña-purple smooth serosa with notable subserosal bulging along the anterior aspect. The roughened brown cervix is 3.9 cm long and 2.6 cm wide, leading to a misshapen and cauterized 2.5 x 1.5 cm slightly roughened ectocervix with a 0.6 cm wide os. The 3.2 cm long and 0.1-0.3 cm wide endocervical canal leads to a triangular 4.6 cm fundus to internal os and 2.2 cm cornu to cornu endometrial cavity. The peña, soft 0.1 cm thick endometrium overlies a 2.8 cm thick peña trabeculated myometrium. No discrete masses, nodules or polyps are identified. Each tube is covered by peña-purple unremarkable serosa and contains 4 total paratubal cysts ranging from 0.1 to 0.2 cm. Tube #1 measures 8.4 cm in length by 0.4 to 0.5 cm in diameter and tube #2 measures 7.3 cm in length by 0.4 to 0.5 cm in diameter. Cut sections of each tube demonstrate intact, unremarkable lumens lined by peña mucosa. Physician Relations Specialist sections submitted as follows: A1: Anterior cervix A2: Posterior cervix A3?A4: Anterior endomyometrium A5?A6: Posterior endomyometrium A7: Serosal strips A8: Fallopian tube #1 A9: Fallopian tube #2 TW [facility] Codes 45151 -------- -------- Specimen: [id number] Received: 03/31/24 Status: S (more content not included)... Normal [facility] Dylan 02-29-2024 L Specimen: [id number] Received: 03/01/24 Status: GRETA Cobb Num: [id number] Spec Type: Surgical Subm Dr: Will Mendoza Tissues: A Endometrium - Biopsy (EMB) Procedures: HE/2, Gross/Micro L4 Age/ Patient Sex Location Account Attending Physician CarltonBoo Lina 38/F LABE[facility] [id number] Will Mendoza SPEC NUM: [id number] RECD: 03/01/24 STATUS: GRETA COBB NUM: [id number] CELIO: 02/29/24- SUBM DR: Will Mendoza ENTERED: 03/01/24 [facility] DR: Evelyne Dickerson SPEC TYPE: Surgical DEPT: JOCELYNE ESPINOZA ORDERED: [...] cm, entirely submitted in A1. -------- Specimen: [id number] Received: 03/01/24 Status: GRETA Babinroge Num: [id number] Spec Type: Surgical Subm Dr: Will Mendoza Tissues: A Endometrium - Biopsy (EMB) Procedures: HE/2, Gross/Micro L4 -------- Patient: Boo Liu [id number] (Continued) -------- Specimen: [id number] Received: 03/01/24 (Continued) Signed (signature on file) Casie Myrick MD 03/03/242057 -------- Specimen: [id number] Received: 03/01/24 Status: GRETA Cobb Num: [id number] Spec Type: Surgical Subm Dr: Will Mendoza Tissues: A Endometrium - Biopsy (EMB) Procedures: HE/2, Syed/Brandan L4 -------- Patient: Boo Liu [id number] (Continued) -------- Specimen: [id number] Received: 03/01/24 (Continued) CPT Codes 03696 -------- -------- Specimen: [id number] Received: 03/01/24 Status: GRETA Cobb Num: [id number] Spec Type: Surgical Subm Dr: Will Mendoza Tissues: A Endometrium - Biopsy (EMB) Procedures: HE/Janae Gross/Micro L4 -------- Patient: Boo Liu [id number] (Continued) -------- Signed (signature on file) Chin-Vinicius Myrick MD 03/03/242057 Normal [facility] Antithrombin III Roosevelt 02-08 Antithrombin III Act 102 % Normal 83-122 [facility] Comment on above: Result Comment: Patients receiving Hirudin may have a falsely decreased Antitrombin III Activity. Performed By: #### L UPPRO #### [facility] [address] [place] [address] Senior Reservoir Engineer: Mazin Franklin MD [address] [id number] Senior Reservoir Engineer: Bobby Flanagan MD #### AF5MUT, APTMUT #### [facility] [address] [place] [address] Senior Reservoir Engineer: Jeffy Benz MD #### HOCYS, PROCAC, AT3A, B2GGM, PROSAC, FA8 #### [facility] [address] [place] [phone] Senior Reservoir Engineer: Bobby Flanagan MD #### DIME #### [facility] [address] [place] [address] Senior Reservoir Engineer: Mazin Franklin MD Factor VIII Activityon 02-08 Factor VIII Activity 176 % High 50-150 [facility] Comment on above: Performed By: #### L UPPRO #### [facility] [address] [place] [address] Senior Reservoir Engineer: Mazin Franklin MD [address] [phone] Senior Reservoir Engineer: Bobby Flanagan MD #### AF5MUT, APTMUT #### [facility] [address] [place], [place] [id number] Senior Reservoir Engineer: Jeffy Benz MD #### HOCYS, PROCAC, AT3A, B2GGM, PROSAC, FA8 #### [address] [address] Senior Reservoir Engineer: Bobby Flanagan MD #### DIME #### [facility] [address] [place] [address] Senior Reservoir Engineer: Mazin Franklin MD Lupus Anticoagulanton 2023 Dilute Emanuel Viper Negative Normal [facility] Comment on above: Performed By: #### L UPPRO #### [facility] [address] [place] [address] Senior Reservoir Engineer: Mazin Franklin MD [address] [address] Senior Reservoir Engineer: Bobby Flanagan MD #### AF5MUT, APTMUT #### [facility] [address] [place], [place] [id number] Senior Reservoir Engineer: Jeffy Benz MD #### HOCYS, PROCAC, AT3A, B2GGM, PROSAC, FA8 #### [address] [address] Senior Reservoir Engineer: Bobby Flanagan MD #### DIME #### [facility] [place] [address] Senior Reservoir Engineer: Mazin Franklin MD PT Mutation [id number] 02-09-20 24 PT [id number] VARIANT Negative Normal [facility] Comment on above: Result Comment: (NOT E) Indication for testing: Assess genetic risk for thrombosis. NEGATIVE: The Factor II, prothrombin [id number] mutation, was not detected. Other causes of [...] M.D., Ph.D. 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 PATHOGENIC VARIANT TESTED: F2 c.*97G>A (B95153X). CLINICAL SENSITIVITY FOR VENOUS THROMBOSIS: Approximately 10 percent. METHODOLOGY: Polymerase chain reaction and fluorescence monitoring. ANALYTICAL SENSITIVITY AND SPECIFICITY: 99 percent. LIMITATIONS: Diagnostic errors can occur due to rare sequence variations. F2 gene variants, other than c.*97G>A (V61608C), will not be detected. This test was developed and its performance characteristics determined by [facility]. It has not been cleared or approved by the [place] Food and Drug Administration. This test was performed in a CLIA certified laboratory and is intended for clinical purposes. Counseling and informed consent are recommended for genetic testing. Consent forms are available online. Performed By: [facility] [address] [place] [address] [employer] Pump Operator: Yves Perez MD, PhD CLIA Number: [id number] Performed By: #### L UPPRO #### [facility] [address] [place] [address] Senior Reservoir Engineer: Mazin Franklin MD [address] [address] Senior Reservoir Engineer: Bobby Flanagan MD #### AF5MUT, APTMUT #### [facility] [address] [place] [address] Senior Reservoir Engineer: Jfefy Benz MD #### HOCYS, PROCAC, AT3A, B2GGM, PROSAC, FA8 #### [address] [address] Senior Reservoir Engineer: Bobby Flanagan MD #### DIME #### [facility] [address] [place] [address] Senior Reservoir Engineer: Mazin Franklin MD PT PCR SPECIMEN Whole Blood Normal [facility] Comment on above: Performed By: #### L UPPRO #### [facility] [address] [place] [address] Senior Reservoir Engineer: Mazin Franklin MD [address] [address] Senior Reservoir Engineer: Bobby Flanagan MD #### AF5MUT, APTMUT #### [facility] [address] [place] [address] Senior Reservoir Engineer: Jeffy Benz MD #### HOCYS, PROCAC, AT3A, B2GGM, PROSAC, FA8 #### [address] [address] Senior Reservoir Engineer: Bobby Flanagan MD #### DIME #### [facility] [address] [place] [address] Senior Reservoir Engineer: Mazin Franklin MD Protein C Activityon 024 Protein C Activity 96 % Normal >80 [facility] Comment on above: Result Comment: Patients [...] VIII. Performed By: #### L UPPRO #### [facility] [address] [place] [address] Senior Reservoir Engineer: Mazin Franklin MD [address] [address] Senior Reservoir Engineer: Bobby Flanagan MD #### AF5MUT, APTMUT #### [facility] [address] [place] [address] Senior Reservoir Engineer: Jeffy Benz MD #### HOCYS, PROCAC, AT3A, B2GGM, PROSAC, FA8 #### [address] [address] Senior Reservoir Engineer: Bobby Flanagan MD #### DIME #### [facility] [address] [place] [address] Senior Reservoir Engineer: Mazin Franklin MD Protein S Activityon 024 Protein S Activity 90 % Normal 59-130 [facility] Comment on above: Result Comment: Patients [...] VIII. Performed By: #### L UPPRO #### [facility] [address] [place] [address] Senior Reservoir Engineer: Mazin Franklin MD [address] [address] Senior Reservoir Engineer: Bobby Flanagan MD #### AF5MUT, APTMUT #### [facility] [address] [place] [address] Senior Reservoir Engineer: Jeffy Benz MD #### HOCYS, PROCAC, AT3A, B2GGM, PROSAC, FA8 #### [address] [address] Senior Reservoir Engineer: Bobby Flanagan MD #### DIME #### [facility] [address] [place] [address] Senior Reservoir Engineer: Mazin Franklin MD B2 Glycoprotein G,Mon 2023 B2 Glycoprot I, IgG <0.6 Normal 0.0-7.0 [facility] Comment on above: Result Comment: Reference Range: <7.0 Negative 7.0-10.0 Equivocal >10.0 Positive Performed By: #### L UPPRO #### [facility] [address] [place] [address] Senior Reservoir Engineer: Mazin Franklin MD [address] [address] Senior Reservoir Engineer: Bobby Flanagan MD #### AF5MUT, APTMUT #### [facility] [address] [place] [address] Senior Reservoir Engineer: Jeffy Benz MD #### HOCYS, PROCAC, AT3A, B2GGM, PROSAC, FA8 #### [address] [address] Senior Reservoir Engineer: Bobby Flanagan MD #### DIME #### [facility] [address] [place] [address] Senior Reservoir Engineer: Mazin Franklin MD B2 Glycoprot I, IgM <0.9 Normal 0.0-7.0 [facility] Comment on above: Result Comment: Reference Range: <7.0 Negative 7.0-10.0 Equivocal >10.0 Positive Performed By: #### L UPPRO #### [facility] [address] [place] [address] Senior Reservoir Engineer: Mazin Franklin MD [address] [address] Senior Reservoir Engineer: Bobby Flanagan MD #### AF5MUT, APTMUT #### [facility] [address] [place] [address] Senior Reservoir Engineer: Jeffy Benz MD #### HOCYS, PROCAC, AT3A, B2GGM, PROSAC, FA8 #### [address] [address] Senior Reservoir Engineer: Bobby Flanagan MD #### DIME #### [facility] [address] [place] [address] Senior Reservoir Engineer: Maizn Franklin MD Factor V Mutationon 02-08-20 24 F 5 SPECIMEN Whole Blood Normal [facility] Comment on above: Performed By: #### L UPPRO #### [facility] [address] [place] [address] Senior Reservoir Engineer: Mazin Franklin MD [address] [address] Senior Reservoir Engineer: Bobby Flanagan MD #### AF5MUT, APTMUT #### [facility] [address] [place] [address] Senior Reservoir Engineer: Jeffy Benz MD #### HOCYS, PROCAC, AT3A, B2GGM, PROSAC, FA8 #### [address] [address] Senior Reservoir Engineer: Bobby Flanagan MD #### DIME #### [facility] [address] [place] [address] Senior Reservoir Engineer: Mazin Franklin MD FACTOR 5 MUTATION Negative Normal [facility] Comment on above: Result Comment: (NOT E) Indication for testing: Assess genetic risk for thrombosis. NEGATIVE: The factor V Leiden variant, c.1601G>A; p.Doo118Nmz, was not detected. This does not exclude [...] function in the F5 gene variant c.1601G>A (p.Abx410Fkc). Legacy nomenclature: [id number] (1691G>A) CLINICAL SENSITIVITY: 20-50 percent of individuals with an isolated VTE have the FVL variant. METHODOLOGY: Polymerase chain reaction and fluorescence monitoring. ANALYTICAL SENSITIVITY AND SPECIFICITY: 99 percent. LIMITATIONS: Diagnostic errors can occur due to rare sequence variations. F5 gene mutations, other than p.Ffk310Dlm, will not be detected. This test was developed and its performance characteristics determined by [facility]. It has not been cleared or approved by the [place] Food and Drug Administration. This test was performed in a CLIA certified laboratory and is intended for clinical purposes. Counseling and informed consent are recommended for genetic testing. Consent forms are available online. Performed By: [facility] [address] [place] [address] [employer] Pump Operator: Yves Perez MD, PhD CLIA Number: [id number] Performed By: #### L UPPRO #### [facility] [place] [address] Senior Reservoir Engineer: Mazin Franklin MD [address] [phone] Senior Reservoir Engineer: Bobby Flanagan MD #### AF5MUT, APTMUT #### [address] [phone] Senior Reservoir Engineer: Jeffy Benz MD #### HOCYS, PROCAC, AT3A, B2GGM, PROSAC, FA8 #### [address] [address] Senior Reservoir Engineer: Bobby Flanagan MD #### DIME #### [facility] [place] [address] Senior Reservoir Engineer: Mazin Fraknlin MD Lupus Anticoagulanton 2023 Anticardiolipin IgA 1.7 APL Normal 0.0-14.0 [facility] Comment on above: Result Comment: Reference Range: <14.0 Negative 14.0-20.0 Equivocal >20.0 Positive When results are Equivocal, it is recommended to retest after 4-6 weeks. Performed By: #### L UPPRO #### [facility] [place] [address] Senior Reservoir Engineer: Mazin Franklin MD [address] [address] Senior Reservoir Engineer: Bobby Flanagan MD #### AF5MUT, APTMUT #### [facility] [address] [place], [place] [id number] Senior Reservoir Engineer: Jeffy Benz MD #### HOCYS, PROCAC, AT3A, B2GGM, PROSAC, FA8 #### [address] [address] Senior Reservoir Engineer: Bobby Flanagan MD #### DIME #### [facility] [address] [place] [address] Senior Reservoir Engineer: Mazin Franklin MD Anticardiolipin IgG 0.8 GPL Normal 0.0-10.0 [facility] Comment on above: Result Comment: Reference Range: <10.0 Negative 10.0-40.0 Equivocal >40.0 Positive Performed By: #### L UPPRO #### [facility] [address] [place] [address] Senior Reservoir Engineer: Mazin Franklin MD [address] [address] Senior Reservoir Engineer: Bobby Flanagan MD #### AF5MUT, APTMUT #### [facility] [address] [place], [place] [id number] Senior Reservoir Engineer: Jeffy Benz MD #### HOCYS, PROCAC, AT3A, B2GGM, PROSAC, FA8 #### [address] [address] Senior Reservoir Engineer: Bobby Flanagan MD #### DIME #### [facility] [address] [place] [address] Senior Reservoir Engineer: Mazin Franklin MD Anticardiolipin IgM 2.6 MPL Normal 0.0-10.0 [facility] Comment on above: Result Comment: Reference Range: <10.0 Negative 10.0-40.0 Equivocal >40.0 Positive Performed By: #### L UPPRO #### [facility] [address] [place] [address] Senior Reservoir Engineer: Mazin Franklin MD [id number] [place], [place] [phone] Senior Reservoir Engineer: Bobby Flanagan MD #### AF5MUT, APTMUT #### [facility] [address] [place] [address] Senior Reservoir Engineer: Jeffy Benz MD #### HOCYS, PROCAC, AT3A, B2GGM, PROSAC, FA8 #### [facility] [place], [place] [phone] Senior Reservoir Engineer: Bobby Flanagan MD #### DIME #### [facility] [address] [place] [address] Senior Reservoir Engineer: Mazin Franklin MD D-Dimer Teston 02-05-2024 D-Dimer Test 0.29 ug/mL FEU Normal 0.00-0.59 [facility] Comment on above: Result Comment: When combined [...] DVT. Performed By: #### L UPPRO #### [facility] [address] [place] [address] Senior Reservoir Engineer: Mazin Franklin MD [address] [address] Senior Reservoir Engineer: Bobby Flanagan MD #### AF5MUT, APTMUT #### [facility] [address] [place] [address] Senior Reservoir Engineer: Jeffy Benz MD #### HOCYS, PROCAC, AT3A, B2GGM, PROSAC, FA8 #### [address] [address] Senior Reservoir Engineer: Bobby Flanagan MD #### DIME #### [facility] [address] [place] [id number] Senior Reservoir Engineer: Mazin Franklin MD Homocysteineon 02-05-2024 Homocysteine 10.8 umol/L Normal 0.0-15.0 [facility] Comment on above: Performed By: #### L UPPRO #### [facility] [address] [place] [address] Senior Reservoir Engineer: Mazin Franklin MD [address] [address] Senior Reservoir Engineer: Bobby Flanagan MD #### AF5MUT, APTMUT #### [facility] [address] [place] [address] Senior Reservoir Engineer: Jeffy Benz MD #### HOCYS, PROCAC, AT3A, B2GGM, PROSAC, FA8 #### [address] [place] [address] Senior Reservoir Engineer: Bobby Flanagan MD #### DIME #### [facility] [place] [address] Senior Reservoir Engineer: Mazin Franklin MD Lupus Anticoagulanton 2023 aPTT Coag (Bld) [Time] 25.0 s Normal 23.9-33.8 [facility] Comment on above: Result Comment: IV Heparin Therapy Range: 62.0-94.0 Performed By: #### L UPPRO #### [facility] [address] [place] [address] Senior Reservoir Engineer: Mazin Franklin MD [address] [address] Senior Reservoir Engineer: Bobby Flanagan MD #### AF5MUT, APTMUT #### [facility] [address] [address] Senior Reservoir Engineer: Jeffy Benz MD #### HOCYS, PROCAC, AT3A, B2GGM, PROSAC, FA8 #### [address] [address] Senior Reservoir Engineer: Bobby Flanagan MD #### DIME #### [facility] [address] [place] [address] Senior Reservoir Engineer: Mazin Franklin MD INR Coag (PPP) [Relative time] 1.0 {INR} Normal [facility] Comment on above: Result Comment: Therapeutic Range: Moderate Anticoagulant Intensity: INR = 2.0-3.0 High Anticoagulant Intensity: INR = 2.5-3.5 Performed By: #### L UPPRO #### [facility] [address] [place] [address] Senior Reservoir Engineer: Mazin Franklin MD [address] [address] Senior Reservoir Engineer: Bobby Flanagan MD #### AF5MUT, APTMUT #### [facility] [address] [place] [address] Senior Reservoir Engineer: Jeffy Benz MD #### HOCYS, PROCAC, AT3A, B2GGM, PROSAC, FA8 #### [address] [address] Senior Reservoir Engineer: Bobby Flanagan MD #### DIME #### [facility] [address] [place] [address] Senior Reservoir Engineer: Mazin Franklin MD PT Coag (PPP) [Time] 13.3 s Normal 11.5-14.2 [facility] Comment on above: Performed By: #### L UPPRO #### [facility] [address] [place] [address] Senior Reservoir Engineer: Mazin Franklin MD [address] [address] Senior Reservoir Engineer: Bobby Flanagan MD #### AF5MUT, APTMUT #### [facility] [address] [place] [address] Senior Reservoir Engineer: Jeffy Benz MD #### HOCYS, PROCAC, AT3A, B2GGM, PROSAC, FA8 #### [address] [address] Senior Reservoir Engineer: Bobby Flanagan MD #### DIME #### [facility] [address] [place] [address] Senior Reservoir Engineer: Mazin Franklin MD XR FOOT RT MIN 3 VIEWSon XR [...] 01:10 Normal [facility] US THYROIDon 12-18-2022 US THYROID EXAMINATION: US [...] [place] Date: 2022-12-18 15:15 Normal [facility] Quick Strepon 12-04-2022 S. pyogenes Org specific cx Ql (Throat) Positive [employer] [facility] [employer] Other Quick Strep [employer] [facility] [employer] Other PROF CHEM 8 (BAS METB)on Anion gap [Moles/Vol] 13.1 mmol/L Normal [facility] Comment on above: Performed By: #### B MP #### [facility] [address] [place], [place] [address] Dr. Claudia Myrick Calcium [Mass/Vol] 9.3 mg/dL Normal 8.5-10.1 [facility] Comment on above: Performed By: #### B MP #### [facility] [address] [place], [place] [address] Dr. Claudia Myrick Chloride [Moles/Vol] 102 mmol/L Normal 98-107 [facility] Comment on above: Performed By: #### B MP #### [facility] [address] [address] [address] Claudia Myrick CO2 [Moles/Vol] 25.4 mmol/L Normal 21.0-32.0 [facility] Comment on above: Performed By: #### B MP #### [facility] [address] [address] [address] Claudia Myrick Creatinine [Mass/Vol] 0.75 mg/dL Normal 0.55-1.02 [facility] Comment on above: Performed By: #### B MP #### [facility] [address] [address] [address] Claudia Myrick EGFR-AF DJIBOUTIAN >60 Normal >=60 [facility] Comment on above: Performed By: #### B MP #### [facility] [address] [address] [address] Claudia Myrick EGFR-NON AF DJIBOUTIAN >60 Normal >=60 [facility] Comment on above: Performed By: #### B MP #### [facility] [address] [address] [address] Claudia Myrick Glucose [Mass/Vol] 90 mg/dL Normal 74-106 [facility] Comment on above: Performed By: #### B MP #### [facility] [address] [address] [address] Claudia Myrick Potassium [Moles/Vol] 4.5 mmol/L Normal 3.5-5.1 [facility] Comment on above: Performed By: #### B MP #### [facility] [address] [address] [address] Claudia Myrick Sodium [Moles/Vol] 136 mmol/L Normal 136-145 [facility] Comment on above: Performed By: #### B MP #### [facility] [address] [address] [address] Claudia Myrick Urea nitrogen [Mass/Vol] 15.0 mg/dL Normal 7.0-18.0 [facility] Comment on above: Performed By: #### B MP #### [facility] [address] [address] [address] Claudia Myrick Urea nitrogen/Creatinine [Mass ratio] 20.0 mg/mg Normal [facility] Comment on above: Performed By: #### B MP #### [facility] [address] [address] [address] Claudia Myrick PROF CHEM 8 (BAS METB)on Anion gap [Moles/Vol] 14.6 mmol/L Normal [facility] Comment on above: Performed By: #### B MP #### [facility] [address] [address] [address] Claudia Myrick Calcium [Mass/Vol] 8.7 mg/dL Normal 8.5-10.1 [facility] Comment on above: Performed By: #### B MP #### [facility] [address] [address] [address] Claudia Myrick Chloride [Moles/Vol] 104 mmol/L Normal 98-107 [facility] Comment on above: Performed By: #### B MP #### [facility] [address] [address] [address] Claudia Myrick CO2 [Moles/Vol] 23.7 mmol/L Normal 21.0-32.0 [facility] Comment on above: Performed By: #### B MP #### [facility] [address] [address] [address] Claudia Myrick Creatinine [Mass/Vol] 1.07 mg/dL Critically high 0.55-1.02 [facility] Comment on above: Performed By: #### B MP #### [facility] [address] [address] [address] Claudia Myrick EGFR-AF DJIBOUTIAN >60 Normal >=60 [facility] Comment on above: Performed By: #### B MP #### [facility] [address] [address] [address] Claudia Myrick EGFR-NON AF DJIBOUTIAN 58 mL/min/1.73m2 Critically low >=60 [facility] Comment on above: Performed By: #### B MP #### [facility] [address] [address] [address] Claudia Myrick Glucose [Mass/Vol] 129 mg/dL Critically high 74-106 [facility] Comment on above: Performed By: #### B MP #### [facility] [address] [address] [address] Claudia Myrick Potassium [Moles/Vol] 3.2 mmol/L Critically low 3.5-5.1 [facility] Comment on above: Performed By: #### B MP #### [facility] [address] [address] [address] Claudia Myrick Sodium [Moles/Vol] 140 mmol/L Normal 136-145 [facility] Comment on above: Performed By: #### B MP #### [facility] [address] [place] [address] Dr. Claudia Myrick Urea nitrogen [Mass/Vol] 9.0 mg/dL Normal 7.0-18.0 [facility] Comment on above: Performed By: #### B MP #### [facility] [address] [address] [address] Claudia Myrick Urea nitrogen/Creatinine [Mass ratio] 8.4 mg/mg Normal [facility] Comment on above: Performed By: #### B MP #### [facility] [address] [place] [address] Dr. Claudia Myrick PROF CHEM 8 (BAS METB)on Anion gap [Moles/Vol] 11.1 mmol/L Normal [facility] Comment on above: Performed By: #### B MP #### [facility] [address] [place] [address] Dr. Claudia Myrick Calcium [Mass/Vol] 9.5 mg/dL Normal 8.5-10.1 [facility] Comment on above: Performed By: #### B MP #### [facility] [address] [place] [address] Dr. Claudia Myrick Chloride [Moles/Vol] 104 mmol/L Normal 98-107 [facility] Comment on above: Performed By: #### B MP #### [facility] [address] [address] [address] Claudia Myrick CO2 [Moles/Vol] 29.9 mmol/L Normal 21.0-32.0 [facility] Comment on above: Performed By: #### B MP #### [facility] [address] [place] [address] Dr. Claudia Myrick Creatinine [Mass/Vol] 1.05 mg/dL Critically high 0.55-1.02 [facility] Comment on above: Performed By: #### B MP #### [facility] [address] [place] [address] Dr. Claudia Myrick EGFR-AF DJIBOUTIAN >60 Normal >=60 [facility] Comment on above: Performed By: #### B MP #### [facility] [address] [place] [address] Dr. Claudia Myrick EGFR-NON AF DJIBOUTIAN =60 Normal >=60 [facility] Comment on above: Performed By: #### B MP #### [facility] [address] [address] [address] Claudia Myrick Glucose [Mass/Vol] 122 mg/dL Critically high 74-106 [facility] Comment on above: Performed By: #### B MP #### [facility] [address] [place] [address] Dr. Claudia Myrick Potassium [Moles/Vol] 3.0 mmol/L Critically low 3.5-5.1 [facility] Comment on above: Performed By: #### B MP #### [facility] [address] [address] [address] Claudia Myrick Sodium [Moles/Vol] 143 mmol/L Normal 136-145 [facility] Comment on above: Performed By: #### B MP #### [facility] [address] [place] [address] Dr. Claudia Myrick Urea nitrogen [Mass/Vol] 11.0 mg/dL Normal 7.0-18.0 [facility] Comment on above: Performed By: #### B MP #### [facility] [address] [place] [address] Dr. Claudia Myrick Urea nitrogen/Creatinine [Mass ratio] 10.5 mg/mg Normal [facility] Comment on above: Performed By: #### B MP #### [facility] [address] [place] [address] Dr. Claudia Myrick POTASSIUMon 04-23-2022 Potassium [Moles/Vol] 3.2 mmol/L Critically low 3.5-5.1 [facility] Comment on above: Performed By: #### K #### [facility] [address] [place] [address] Dr. Claudia Myrick THYROGLOBULIN ABon Thyroglobulin Antibody <1.0 Normal 0.0-0.9 [facility] Comment on above: Result Comment: Thyr oglobulin Antibody measured by [employer] Performed By: #### T HYGAB #### [facility] [address] [place] [address] Dr. Claudia Myrick THYROID PEROXIDASE ABon 03-13 Thyroid Peroxidase (TPO) Ab <8 Normal 0-34 [facility] Comment on above: Performed By: #### T POAB #### [facility] [address] [place] [address] Dr. Claudia Myrick CBC AUTO DIFFon 04-08-2022 BASO # 0.1 103/ul Normal 0.0-0.1 [facility] Comment on above: Performed By: #### C BC #### [facility] [address] [place] [address] Dr. Claudia Myrick Basophils/100 WBC (Bld) 0.6 % Normal 0.2-2.0 [facility] Comment on above: Performed By: #### C BC #### [facility] [address] [place] [address] Dr. Claudia Myrick EO # 0.3 103/ul Normal 0.0-0.7 [facility] Comment on above: Performed By: #### C BC #### [facility] [address] [place] [address] Dr. Claudia Myrick Eosinophils/100 WBC (Bld) 4.2 % Normal 0.9-7.0 [facility] Comment on above: Performed By: #### C BC #### [facility] [address] [place] [address] Dr. Claudia Myrick Erythrocyte distribution width (RBC) [Ratio] 12.8 % Normal 11.0-15.0 [facility] Comment on above: Performed By: #### C BC #### [facility] [address] [place] [address] Dr. Claudia Myrick Hematocrit (Bld) [Volume fraction] 42.0 % Normal 36.0-48.0 [facility] Comment on above: Performed By: #### C BC #### [facility] [address] [place] [address] Dr. Claudia Myrick Hemoglobin (Bld) [Mass/Vol] 14.1 g/dL Normal 12.0-16.0 [facility] Comment on above: Performed By: #### C BC #### [facility] [address] [place] [address] Dr. Claudia Myrick IG # 0.05 10e3/ul Critically high 0.00-0.03 [facility] Comment on above: Performed By: #### C BC #### [facility] [address] [place] [address] Dr. Claudia Myrick IG % 0.6 % Critically high 0.0-0.5 [facility] Comment on above: Performed By: #### C BC #### [facility] [address] [place] [address] Dr. Claudia Myrick LYMPH # 1.7 103/ul Normal 1.2-3.8 [facility] Comment on above: Performed By: #### C BC #### [facility] [address] [place] [address] Dr. Claudia Myrick Lymphocytes/100 WBC (Bld) 21.1 % Normal 20.5-60.0 [facility] Comment on above: Performed By: #### C BC #### [facility] [address] [place] [address] Dr. Claudia Myrick MANUAL DIFF REQ NO Normal [facility] Comment on above: Performed By: #### C BC #### [facility] [address] [place] [address] Dr. Claudia Myrick MCH (RBC) [Entitic mass] 30.6 pg Normal 26.7-34.0 [facility] Comment on above: Performed By: #### C BC #### [facility] [address] [place] [address] Dr. Claudia Myrick MCHC (RBC) [Mass/Vol] 33.6 g/dL Normal 29.9-35.2 [facility] Comment on above: Performed By: #### C BC #### [facility] [address] [place] [address] Dr. Claudia Myrick MCV (RBC) [Entitic vol] 91.1 fL Normal 81.0-99.0 [facility] Comment on above: Performed By: #### C BC #### [facility] [address] [place] [address] Dr. Claudia Myrick MONO # 0.6 103/ul Normal 0.3-0.8 [facility] Comment on above: Performed By: #### C BC #### [facility] [address] [place] [address] Dr. Claudia Myrick Monocytes/100 WBC (Bld) 7.1 % Normal 1.7-12.0 [facility] Comment on above: Performed By: #### C BC #### [facility] [address] [place] [address] Dr. Claudia Myrick NEUT # 5.4 103/ul Normal 1.4-6.5 [facility] Comment on above: Performed By: #### C BC #### [facility] [address] [place] [address] Dr. Claudia Myrick Neutrophils/100 WBC (Bld) 66.4 % Normal 43.0-75.0 [facility] Comment on above: Performed By: #### C BC #### [facility] [address] [place] [address] Dr. Claudia Myrick Platelet mean volume (Bld) [Entitic vol] 11.1 fL Normal 9.5-13.5 [facility] Comment on above: Performed By: #### C BC #### [facility] [address] [address] [address] Claudia Myrick PLT 213 103/ul Normal 150-450 [facility] Comment on above: Performed By: #### C BC #### [facility] [address] [address] [address] Claudia Myrick RBC 4.61 106/ul Normal 4.20-5.40 [facility] Comment on above: Performed By: #### C BC #### [facility] [address] [address] [address] Claudia Myrick WBC 8.2 103/ul Normal 4.0-11.0 [facility] Comment on above: Performed By: #### C BC #### [facility] [address] [address] [address] Claudia Myrick FREE T3on 04-08-2022 FREE T3 3.34 pg/mlL Normal 2.18-3.98 [facility] Comment on above: Performed By: #### L IPID, FT3, TSH, CMP ####[facility] [address] [address]Dr. Claudia Myrick FREE T4on 04-08-2022 Free T4 [Mass/Vol] 0.96 ng/dL Normal 0.76-1.46 [facility] Comment on above: Performed By: #### F T4 ####[facility] [address] [id number]. Claudia Myrick GLYCOHEMOGLOBIN A1Con 2021 ADA RECOMMENDATION SEE BELOW Normal [facility] Comment on above: Result Comment: ADA RECOMMENDED LIMIT 4.0 - 6.0 ADA THERAPEUTIC TARGET < 7.0 ACTION SUGGESTED > 7.0 Performed By: #### A 1C #### [facility] [address] [address] [address] Claudia Myrick Glucose [Mass/Vol] 108 mg/dL Normal [facility] Comment on above: Performed By: #### A 1C #### [facility] [address] [address] [address] Claudia Myrick HbA1c (Bld) [Mass fraction] 5.4 % Normal 4.5-6.2 [facility] Comment on above: Performed By: #### A 1C #### [facility] [address] [place], [place] [address] Dr. Claudia Myrick LIPID PROFILEon 04-08-2022 CHOL-HDL RATIO NORM SEE BELOW Normal [facility] Comment on above: Result Comment: 3.3 - 4.4 LOW RISK 4.4 - 7.1 AVERAGE RISK 7.1 - 11.0 MODERATE RISK >11.0 HIGH RISK Performed By: #### L IPID, FT3, TSH, CMP ####[facility] [address] [id number]. Claudia Myrick Cholesterol [Mass/Vol] 213 mg/dL Critically high <=200 [facility] Comment on above: Performed By: #### L IPID, FT3, TSH, CMP ####[facility] [address] [id number]. Claudia Myrick Cholesterol in HDL [Mass/Vol] 34 mg/dL Critically low 40-60 [facility] Comment on above: Performed By: #### L IPID, FT3, TSH, CMP ####[facility] [address] [address]Dr. Claudia Myrick Cholesterol in LDL [Mass/Vol] 135.6 mg/dL Normal [facility] Comment on above: Performed By: #### L IPID, FT3, TSH, CMP ####[facility] [address] [address]Dr. Claudia Myrick Cholesterol.total/C holesterol in HDL [Mass ratio] 6.3 {ratio} Normal [facility] Comment on above: Performed By: #### L IPID, FT3, TSH, CMP ####[facility] [address] [address]Dr. Claudia Myrick HDL NORMAL > or = 60 mg/dl - LO W CARDIOVASCULAR RISK <40 mg/dl - HIGH CARDIOVASCULAR RISK Normal [facility] Comment on above: Performed By: #### L IPID, FT3, TSH, CMP ####[facility] [address] [address]Dr. Claudia Myrick LDL CALC NORMAL SEE BELOW Normal [facility] Comment on above: Result Comment: <100 mg/dl OPTIMAL 100 - 129 mg/dl NEAR OR ABOVE OPTIMAL 130 - 159 mg/dl BORDERLINE HIGH 160 - 189 mg/dl HIGH >190 mg/dl VERY HIGH Performed By: #### L IPID, FT3, TSH, CMP ####[facility] [address] [place] [address]Dr. Claudia Myrick Triglyceride [Mass/Vol] 217 mg/dL Critically high <=150 [facility] Comment on above: Performed By: #### L IPID, FT3, TSH, CMP ####[facility] [address] [address]Dr. Claudia Myrick VLDL CALC 43.4 mg/dL Normal [facility] Comment on above: Performed By: #### L IPID, FT3, TSH, CMP ####[facility] [address] [place] [address]Dr. Claudia Myrick PROF 14(COMP METB)on 022 Albumin [Mass/Vol] 3.6 g/dL Normal 3.4-5.0 [facility] Comment on above: Performed By: #### L IPID, FT3, TSH, CMP ####[facility] [address] [place] [address]Dr. Claudia Myrick Albumin/Globulin [Mass ratio] 1.1 {ratio} Normal [facility] Comment on above: Performed By: #### L IPID, FT3, TSH, CMP ####[facility] [address] [place] [address]Dr. Claudia Myrick ALP [Catalytic activity/Vol] 75 U/L Normal 46-116 [facility] Comment on above: Performed By: #### L IPID, FT3, TSH, CMP ####[facility] [address] [place] [address]Dr. Claudia Myrick ALT [Catalytic activity/Vol] 60 U/L Critically high 14-59 [facility] Comment on above: Performed By: #### L IPID, FT3, TSH, CMP ####[facility] [address] [place] [address]Dr. Claudia Myrick Anion gap [Moles/Vol] 12.1 mmol/L Normal [facility] Comment on above: Performed By: #### L IPID, FT3, TSH, CMP ####[facility] [address] [place] [address]Dr. Claudia Myrick AST [Catalytic activity/Vol] 29 U/L Normal 15-37 [facility] Comment on above: Performed By: #### L IPID, FT3, TSH, CMP ####[facility] [address] [place], [place] [address]Dr. Claudia Myrick Bilirubin [Mass/Vol] 0.6 mg/dL Normal 0.2-1.0 [facility] Comment on above: Performed By: #### L IPID, FT3, TSH, CMP ####[facility] [address] [place], [place] [address]Dr. Claudia Myrick Calcium [Mass/Vol] 8.9 mg/dL Normal 8.5-10.1 [facility] Comment on above: Performed By: #### L IPID, FT3, TSH, CMP ####[facility] [address] [place], [place] [address]Dr. Claudia Myrick Chloride [Moles/Vol] 103 mmol/L Normal 98-107 [facility] Comment on above: Performed By: #### L IPID, FT3, TSH, CMP ####[facility] [address] [place], [place] [address]Dr. Claudia Myrick CO2 [Moles/Vol] 27.8 mmol/L Normal 21.0-32.0 [facility] Comment on above: Performed By: #### L IPID, FT3, TSH, CMP ####[facility] [address] [place], [place] [address]Dr. Claudia Myrick Creatinine [Mass/Vol] 0.86 mg/dL Normal 0.55-1.02 [facility] Comment on above: Performed By: #### L IPID, FT3, TSH, CMP ####[facility] [address] [address]Dr. Claudia Myrick EGFR-AF DJIBOUTIAN >60 Normal >=60 [facility] Comment on above: Performed By: #### L IPID, FT3, TSH, CMP ####[facility] [address] [place], [place] [address]Dr. Claudia Myrick EGFR-NON AF DJIBOUTIAN >60 Normal >=60 [facility] Comment on above: Performed By: #### L IPID, FT3, TSH, CMP ####[facility] [address] [place], [place] [address]Dr. Claudia Myrick Globulin (S) [Mass/Vol] 3.2 g/dL Normal [facility] Comment on above: Performed By: #### L IPID, FT3, TSH, CMP ####[facility] [address] [place], [place] [address]Dr. Claudia Myrick Glucose [Mass/Vol] 114 mg/dL Critically high 74-106 [facility] Comment on above: Performed By: #### L IPID, FT3, TSH, CMP ####[facility] [address] [place], [place] [address]Dr. Claudia Myrick Potassium [Moles/Vol] 2.8 mmol/L Critically low 3.5-5.1 [facility] Comment on above: Result Comment: TEST REPEATED CRITICAL VALUE VERIFIED Performed By: #### L IPID, FT3, TSH, CMP ####[facility] Eebxf[address] [place], [place] [address]Dr. Claudia Myrick Protein [Mass/Vol] 6.8 g/dL Normal 6.4-8.2 [facility] Comment on above: Performed By: #### L IPID, FT3, TSH, CMP ####[facility] [address] [place], [place] [address]Dr. Claudia Myrick Sodium [Moles/Vol] 138 mmol/L Normal 136-145 [facility] Comment on above: Performed By: #### L IPID, FT3, TSH, CMP ####[facility] R[address] [place], [place] [address]Dr. Claudia Myrick Urea nitrogen [Mass/Vol] 11.0 mg/dL Normal 7.0-18.0 [facility] Comment on above: Performed By: #### L IPID, FT3, TSH, CMP ####[facility] [address] [place] [address]Dr. Claudia Myrick Urea nitrogen/Creatinine [Mass ratio] 12.8 mg/mg Normal [facility] Comment on above: Performed By: #### L IPID, FT3, TSH, CMP ####[facility] [address] [address]Dr. Claudia Myrick TSHon 04-08-2022 TSH 1.561 uIU/mL Normal 0.358-3.740 [facility] Comment on above: Performed By: #### L IPID, FT3, TSH, CMP #### [facility] [address] [address] [address] Claudia Myrick UA RANDOM W/MICROSCOPICon BACTERIA TRACE Abnormal NONE SEEN [facility] Comment on above: Performed By: #### U AMIC ####[facility] [address] [address]Dr. Claudia Myrick Bilirubin Ql (U) Negative Normal NEGATIVE [facility] Comment on above: Performed By: #### U AMIC ####[facility] [address] [place] [address]Dr. Claudia Myrick CAST NONE SEEN Normal NONE SEEN [facility] Comment on above: Performed By: #### U AMIC ####[facility] [address] [address]Dr. Claudia Myrick Clarity (U) CLEAR Normal CLEAR [facility] Comment on above: Performed By: #### U AMIC ####[facility] [address] [place] [address]Dr. Claudia Myrick Color (U) YELLOW Normal YELLOW [facility] Comment on above: Performed By: #### U AMIC ####[facility] [address] [place] [address]Dr. Claudia Myrick Crystals LM Nom (Urine sed) NONE SEEN Normal NONE SEEN [facility] Comment on above: Performed By: #### U AMIC ####[facility] [address] [address]Dr. Claudia Myrick Epithelial cells LM Ql (Urine sed) FEW Abnormal NONE SEEN /RARE [facility] Comment on above: Performed By: #### U AMIC ####[facility] [address] [address]Dr. Claudia Myrick Glucose Ql (U) Negative Normal NEGATIVE [facility] Comment on above: Performed By: #### U AMIC ####[facility] [address] [place] [address]Dr. Claudia Myrick Hemoglobin Ql (U) Negative Normal NEGATIVE [facility] Comment on above: Performed By: #### U AMIC ####[facility] [address] [place], [place] [address]Dr. Claudia Myrick Ketones Ql (U) Negative Normal NEGATIVE [facility] Comment on above: Performed By: #### U AMIC ####[facility] [address] [place], [place] [address]Dr. Yilan Myrick LEUKOCYTES Negative Normal NEGATIVE [facility] Comment on above: Performed By: #### U AMIC ####[facility] Wx[address] [place], [place] [address]Dr. Yilan Myrick MUCOUS NONE SEEN Normal NONE SEEN [facility] Comment on above: Performed By: #### U AMIC ####[facility] [address] [place], [place] [address]Dr. Yilan Myrick Nitrite Ql (U) Negative Normal NEGATIVE [facility] Comment on above: Performed By: #### U AMIC ####[facility] [address] [place] [address]Dr. Sandiobey Myrick pH (U) 7.0 [pH] Normal 5-9 [facility] Comment on above: Performed By: #### U AMIC ####[facility] [address] [place] [address]Dr. Yilan Myrick RBC NONE SEEN Abnormal 0-2 [facility] Comment on above: Performed By: #### U AMIC ####[facility] [address] [place], [place] [address]Ec. Claudia Myrick SPEC GRAVITY 1.015 Normal 1.005-<=1.025 [facility] Comment on above: Performed By: #### U AMIC ####[facility] [address] [place], [place] [address]Ro. Claudia Myrick UA PROTEIN Negative Normal NEGATIVE/ TRACE [facility] Comment on above: Performed By: #### U AMIC ####[facility] [address] [place], [place] [address]De. Sandiobey Myrick Urobilinogen Qn (U) 0.2 {Brendan'U}/dL Normal 0.2 - 1. 0 [facility] Comment on above: Performed By: #### U AMIC ####[facility] [address] [place] [id number]. Claudia Myrick WBC NONE SEEN Normal NONE SEEN [facility] Comment on above: Performed By: #### U AMIC ####[facility] [address] [place], [place] [address]Xz. Claudia Myrick XR shoulder RT min 2V*on XR shoulder RT min 2V* [facility] [employer] Other XR shoulder RT min 2V* [facility] [employer] Other XR shoulder RT min 2V* [address] [place] [address] [employer] Other XR shoulder RT min 2V* [place] [address] [employer] Other XR shoulder RT min 2V* XRay Report [employer] Other XR shoulder RT min 2V* Signed [employer] Other XR shoulder RT min 2V* Patient: Boo Arenas MR#: [id number] [employer] Other XR shoulder RT min 2V* : 1985 Acct:[id number] [employer] Other XR shoulder RT min 2V* Age/Sex: 36 / F ADM Date: 03/16/22 [employer] Other XR shoulder RT min 2V* Loc: XDUCLY [facility]: [facility] [employer] Other XR shoulder RT min 2V* [facility] Other XR shoulder RT min 2V* Ordering Provider[facility] Other XR shoulder RT min 2V* Date of Service: 03/16/22 [employer] Other XR shoulder RT min 2V* XR/XR shoulder RT min 2V*: Acute pain of right shoulder [employer] Other XR shoulder RT min 2V* Copies to: [facility] [employer] Other XR shoulder RT min 2V* RIGHT SHOULDER - 3 views [employer] Other XR shoulder RT min 2V* CLINICAL HISTORY: Right shoulder pain since pushing off a couch and hearing a pop last week. Pain [employer] Other XR shoulder RT min 2V* radiates down the arm. [employer] Other XR shoulder RT min 2V* COMPARISON: None [employer] Other XR shoulder RT min 2V* AP, Y and Grashey views were obtained. There is no evidence of fracture or dislocation. Minor [employer] Other XR shoulder RT min 2V* degenerative change is present at the acromioclavicular joint and greater tuberosity. There are no [employer] Other XR shoulder RT min 2V* significant soft tissue abnormalities. [employer] Other XR shoulder RT min 2V* XR/XR shoulder RT min 2V* [employer] Other XR shoulder RT min 2V* IMPRESSION: [employer] Other XR shoulder RT min 2V* NO ACUTE BONY FINDINGS. [employer] Other XR shoulder RT min 2V* Impression dictated by: Delia Kumar M.D.03/16/2022 1:37 PM [employer] Other XR shoulder RT min 2V* Dictation Location: [place] [address] [employer] Other XR shoulder RT min 2V* Transcribed By: HARRIS 03/16/22 [facility] [employer] Other XR shoulder RT min 2V* Dictated By: Delia Kumar MD 03/16/22 [facility] [employer] Other XR shoulder RT min 2V* Signed By: [employer] Other XR shoulder RT min 2V* 03/16/22 [facility] [employer] Other COVID Quick Testingon 2020 Result Negative [employer] Other Quick Fluon 09-29-2021 FLUAV Ab CF (S) [Titer] Negative [employer] Other FLUBV Ab CF (S) [Titer] Negative [employer] Other Physician Referralon 021 Physician Referral [phone] [id number] Normal [facility] COVID-19on 09-25-2020 SARS-CoV-2 [place], [place] SARS-CoV-2 Not Detected Not Detected [place], [place] Comment on above: The specimen is [...] this assay. Fact sheet for Healthcare Providers: https://www.fda.gov/media/210596/download Fact sheet for Patients: https://www.fda.gov/media/745833/download METHODOLOGY: RT-PCR SARS-CoV-2, [place], [place] Source .NASOPHARYNGEAL SWAB [place] COVID-19 Ambulatoryon 2019 SARS-CoV-2, ELVIN Not Detected Not Detected [place] Comment on above: (NOTE) This nucleic acid amplification test was developed and its performance characteristics determined by [employer]. Nucleic acid amplification tests include PCR and [...] detected) result in this assay. Performed At: [facility] [address] [facility] [place] [id number] Latricia Barrera MD Ph:[phone] Urine Drug Screenon 07-09-20 20 Amphetamine Screen, Ur Negative NEGATIVE [facility] [place] Barbiturate Screen, Ur Negative NEGATIVE [facility] [place] Benzodiazepine Screen, Urine Negative NEGATIVE [facility] [place] Buprenorphine Urine Negative NEGATIVE [facility] [place] Cannabinoid Scrn, Ur Negative NEGATIVE [facility] [place] Cocaine Metabolite, Urine Negative NEGATIVE [facility] [place] MDMA, Urine NOT REPORTED NEGATIVE [facility] [place] Methadone Screen, Urine Negative NEGATIVE [facility] [place] Methamphetamine, Urine Negative NEGATIVE [facility] [place] Opiates, Urine Negative NEGATIVE [facility] [place] Oxycodone Screen, Ur Negative NEGATIVE [facility] [place] Phencyclidine, Urine Negative NEGATIVE [facility] [place] Propoxyphene, Urine Negative NEGATIVE [facility] [place] Test Information NOT REPORTED [facility] [place], [place] Tricyclic Antidepressants, Urine Negative NEGATIVE [facility] [place] Comment on above: Drug screen results are to be used for medical purposes only. All positive results are unconfirmed. Testing for employment or legal uses should be sent to a reference laboratory for confirmation. CBC Auto Differentialon Basophils (Bld) [#/Vol] 0.04 10*3/uL [facility] [place] [place] Basophils/100 WBC (Bld) 1 % 0 - 2 % [place] Differential Type NOT REPORTED [place] Eosinophils (Bld) [#/Vol] 0.37 10*3/uL [place] Eosinophils/100 WBC (Bld) 5 % High 1 - 4 % [place] Erythrocyte distribution width (RBC) [Ratio] 12.6 % 11.8 - 14.4 % [facility] [place] Hematocrit (Bld) [Volume fraction] 42.8 % 36.3 - 47.1 % [place] Hemoglobin (Bld) [Mass/Vol] 14.2 g/dL 11.9 - 15.1 g/dL [place] Immature granulocytes (Bld) [#/Vol] 0 % 0 [place] Immature granulocytes (Bld) [#/Vol] 10*3/uL [place] Interpretation and review of laboratory results Abnormal [place] Lymphocytes (Bld) [#/Vol] 1.80 10*3/uL [place] Lymphocytes/100 WBC (Bld) 25 % 24 - 43 % [place] MCH (RBC) [Entitic mass] 30.7 pg 25.2 - 33.5 pg [place] MCHC (RBC) [Mass/Vol] 33.2 g/dL 28.4 - 34.8 g/dL [place] MCV (RBC) [Entitic vol] 92.4 fL 82.6 - 102.9 fL [place] Monocytes (Bld) [#/Vol] 0.61 10*3/uL [place] Monocytes/100 WBC (Bld) 8 % 3 - 12 % [place] Platelet mean volume (Bld) [Entitic vol] 11.2 fL 8.1 - 13.5 fL [place] Platelets (Bld) [#/Vol] 201 10*3/uL [place] Platelets (Bld) [#/Vol] NOT REPORTED [place] RBC (Bld) [#/Vol] 4.63 10*6/uL 3.95 - 5.1 1 m/uL [place] RBC morphology finding Nom (Bld) NOT REPORTED [place] Segmented neutrophils/100 WBC (Bld) 61 % 36 - 65 % [place] Segs Absolute 4.41 [place] WBC (Bld) [#/Vol] 0.0 10*3/uL 0.0 per 10 0 WBC [place] WBC (Bld) [#/Vol] 7.3 10*3/uL [place] WBC Morphology NOT REPORTED [place] Comprehensive Metabolic Pane dylan 04-18-2020 Albumin [Mass/Vol] 4.4 g/dL 3.5 - 5.2 g/dL [place] Albumin/Globulin [Mass ratio] 1.7 {ratio} [place] ALP [Catalytic activity/Vol] 68 U/L 35 - 104 U/L [place] ALT [Catalytic activity/Vol] 35 U/L High 5 - 33 U/L [place] Anion gap [Moles/Vol] 13 mmol/L 9 - 17 mmol/L [place] AST [Catalytic activity/Vol] 24 U/L <32 [place] Bilirubin Ql (U) 0.51 mg/dL 0.3 - 1.2 mg/dL [place] Bun/Cre Ratio 18 [place] Calcium [Mass/Vol] 9.4 mg/dL 8.6 - 10. 4 mg/dL [place] Chloride [Moles/Vol] 100 mmol/L 98 - 107 mmol/L [place] CO2 [Moles/Vol] 27 mmol/L 20 - 31 mmol/L [place] Creatinine [Mass/Vol] 0.83 mg/dL 0.5 - 0.9 mg/dL [place] GFR >60 >60 mL/min [place] GFR Non- >60 >60 mL/min [place] Glucose [Mass/Vol] 117 mg/dL High 70 - 99 mg/dL [place] Potassium [Moles/Vol] 3.5 mmol/L Low 3.7 - 5.3 mmol/L [place] Protein [Mass/Vol] 7.0 g/dL 6.4 - 8.3 g/dL [place] Sodium [Moles/Vol] 140 mmol/L 135 - 144 mmol/L [place] Urea nitrogen [Mass/Vol] 15 mg/dL 6 - 20 mg/dL [place] Ferritinon 04-18-2020 Ferritin [Mass/Vol] 59 ug/L 13 - 150 ug/L [place] Hemoglobin A1Con 04-18-2020 Glucose [Mass/Vol] 105 mg/dL [place] Comment on above: The ADA and AACC rec ommend providing the estimated average glucose result to permit better patient understanding of their HBA1c result. HbA1c (Bld) [Mass fraction] 5.3 % 4.8 - 5.9 % [place] Iron and TIBCon 04-18-2020 Iron [Mass/Vol] 104 ug/dL 37 - 145 ug/dL [place] Iron Saturation 33 % 20 - 55 % [place] TIBC 312 ug/dL 250 - 450 ug/dL [place] UIBC 208 ug/dL 112 - 347 ug/dL [place] Lipid Panelon 04-18-2020 Cholesterol [Mass/Vol] 207 mg/dL High <200 [place] Comment on above: Cholesterol Guidelines: <200 Desirable 200-240 Borderline >240 Undesirable Cholesterol in HDL [Mass/Vol] 33 mg/dL Low >40 [place] Comment on above: HDL Guidelines: <40 Undesirable 40-59 Borderline >59 Desirable Cholesterol in LDL [Mass/Vol] 119 mg/dL 0 - 130 mg/dL [place] Comment on above: LDL Guidelines: <100 Desirable 100-129 Near to/above Desirable 130-159 Borderline >159 Undesirable Direct (measured) LDL and calculated LDL are not interchangeable tests. Cholesterol in VLDL [Mass/Vol] NOT REPORTED High 1 - 30 mg/dL [place] Cholesterol.total/C holesterol in HDL [Mass ratio] 6.3 {ratio} High <5 [place] Triglyceride [Mass/Vol] 273 mg/dL High <150 [place] Comment on above: Triglyceride Guidelines: <150 Desirable 150-199 Borderline 200-499 High >499 Very high Based on AHA Guidelines for fasting triglyceride, July 2012. Magnesiumon 04-18-2020 Magnesium [Mass/Vol] 2.1 mg/dL 1.6 - 2.6 mg/dL [place] Metabolic Panelon 04-18-2020 GFR/1.73 sq M predicted among non-blacks MDRD (S/P/Bld) [Vol rate/Area] [place] Comment on above: Average GFR for 30-3 9 years old: 107 mL/min/1.73sq m Chronic Kidney Disease: <60 mL/min/1.73sq m Kidney failure: <15 mL/min/1.73sq m eGFR calculated using average adult body mass. Additional eGFR calculator available at: http://www.[employer]/multiple_crcl_2012.htm Stage 1: Some kidney damage normal GFR Stage 2: Mild kidney damage GFR 60-89 Stage 3: Moderate kidney damage GFR 30-59 Stage 4: Severe kidney damage GFR 15-29 Stage 5: Severe kidney damage GFR <15 ESRD - chronic treatment by dialysis or transplant Otheron 04-18-2020 Interpretation and review of laboratory results Abnormal [place] PTH, Intacton 04-18-2020 Pth Intact 54.97 pg/mL 15 - 65 pg/mL [place] Comment on above: SAMPLES FROM PATIENT S ROUTINELY RECEIVING HIGH DOSE BIOTIN THERAPY MAY SHOW FALSELY DEPRESSED RESULTS. ADDITIONAL INFORMATION MAY BE REQUIRED FOR DIAGNOSIS. T4, Freeon 04-18-2020 Interpretation and review of laboratory results Abnormal [place] Thyroxine, Free 0.90 ng/dL Low 0.93 - 1.7 ng/dL [place] TSH without Reflexon 020 TSH Qn 1.74 m[IU]/L [place] Vitamin B12 & Folateon 04-18 Cobalamin (Vitamin B12) [Mass/Vol] 324 pg/mL 232 - 1245 pg/mL [place] Folate 14.3 ng/mL >4.8 [place] Vitamin D 25 Hydroxyon 04-18 Interpretation and review of laboratory results Abnormal [place] Vit D, 25-Hydroxy 22.6 ng/mL Low 30 - 100 ng/mL [place] Comment on above: Reference Range: Vitamin D status Range Deficiency <20 ng/mL Mild Deficiency 20-30 ng/mL Sufficiency 30-100 ng/mL Toxicity >100 ng/mL Basic Metabolic Panelon 03- Anion gap molar conc 13 mmol/L Normal 10-20 [facility] Comment on above: Performed By: #### 1 [id number] #### [facility] [address] [place] [address] Calcium mass conc 9.6 mg/dL Normal 8.6-10.3 [facility] Comment on above: Performed By: #### 1 [id number] #### [facility] [address] [place] [address] Chloride molar conc 104 mmol/L Normal 98-107 [facility] Comment on above: Performed By: #### 1 [id number] #### [facility] [address] [place] [address] Creatinine mass conc 0.83 mg/dL Normal 0.50-1.05 [facility] Comment on above: Performed By: #### 1 [id number] #### [facility] [address] [place] [address] GFR/1.73 sq M.predicted MDRD vol rate/area mL/min/{1.73_m2} Normal [facility] Comment on above: Result Comment: Inte rpretation for Chronic Kidney Disease: Stages 1&2 >60 Healthy or potential kidney damage. Mild decrease of GFR. Stage 3 30-59 Moderate decrease of GFR. Stage 4 15-29 Severe decrease of GFR. Stage 5 <15 Kidney failure or on dialysis. Performed By: #### 1 [id number] #### [facility] [address] [place] [address] Glucose mass conc 74 mg/dL Normal 70-100 [facility] Comment on above: Performed By: #### 1 [id number] #### [facility] [address] [place] [address] HCO3 molar conc (Bld) 26 mmol/L Normal 21-32 [facility] Comment on above: Performed By: #### 1 [id number] #### [facility] [address] [place] [address] Potassium molar conc 3.6 mmol/L Normal 3.5-5.1 [facility] Comment on above: Performed By: #### 1 [id number] #### [facility] [address] [place] [address] Sodium molar conc 139 mmol/L Normal 136-145 [facility] Comment on above: Performed By: #### 1 [id number] #### [facility] [address] [place] [address] Urea nitrogen mass conc 13 mg/dL Normal 6-23 [facility] Comment on above: Performed By: #### 1 [id number] #### [facility] [address] [place] [address] Urea nitrogen/Creatinine mass ratio 16 mg/mg Normal 5-25 [facility] Comment on above: Performed By: #### 1 [id number] #### [facility] [address] [place] [address] CBCon 12-15-2018 Erythrocyte distribution width Ratio (RBC) 12.6 % Normal 12.0-15.4 [facility] Comment on above: Performed By: #### 2 [id number] #### [facility] [address] [place] [address] Hematocrit Volume Fraction (Bld) 43.4 % Normal 36.5-46.6 [facility] Comment on above: Performed By: #### 2 [id number] #### [facility] [address] [place] [address] Hemoglobin mass conc (Bld) 14.2 g/dL Normal 11.8-15.3 [facility] Comment on above: Performed By: #### 2 [id number] #### [facility] [address] [place] [address] MCH Entitic mass (RBC) 30.3 pg Normal 27.5-33.0 [facility] Comment on above: Performed By: #### 2 [id number] #### [facility] [address] [place] [address] MCHC mass conc (RBC) 32.7 g/dL Normal 30.1-35.0 [facility] Comment on above: Performed By: #### 2 [id number] #### [facility] [address] [place] [address] MCV Entitic volume (RBC) 92.5 fL Normal 85.4-100.0 [facility] Comment on above: Performed By: #### 2 [id number] #### [facility] [address] [place] [address] NRBC Absolute 0.00 10*3/uL [facility] Comment on above: Performed By: #### 2 [id number] #### [facility] [address] [place] [address] NRBC Automated 0.0 /100{WBCs} Normal [facility]care Comment on above: Performed By: #### 2 [id number] #### [facility] [address] [place] [address] Platelet mean volume Entitic volume (Bld) 10.9 fL Normal 9.9-12.1 [facility] Comment on above: Performed By: #### 2 [id number] #### [facility] [address] [place] [address] Platelets #/vol (Bld) 199 10*3/uL Normal 155-404 [facility] Comment on above: Performed By: #### 2 [id number] #### [facility] [address] [place] [address] RBC #/vol (Bld) 4.69 10*6/uL Normal 3.85-5.10 [facility] Comment on above: Performed By: #### 2 [id number] #### [facility] [address] [place] [address] RDW SD 42.5 fL Normal 39.3-48.6 [facility] Comment on above: Performed By: #### 2 [id number] #### [facility] [address] [place] [address] WBC #/vol (Bld) 8.4 10*3/uL Normal 4.4-9.9 [facility] Comment on above: Performed By: #### 2 [id number] #### [facility] [address] [place] [address] Test (Serum)on Test, Serum Negative Normal [facility] Comment on above: Performed By: #### 3 [id number] #### [facility] [address] [place] [address] CBC With Differentialon - Basophils #/vol (Bld) 0.05 10*3/uL Normal 0.01-0.07 [facility] Comment on above: Performed By: #### 2 [id number] #### [facility] [address] [place] [address] Basophils/100 WBC (Bld) 0.5 % Normal 0.1-1.2 [facility] Comment on above: Performed By: #### 2 [id number] #### [facility] [address] [place] [address] Eosinophils #/vol (Bld) 0.38 10*3/uL Normal 0.04-0.50 [facility] Comment on above: Performed By: #### 2 [id number] #### [facility] [address] [place] [address] Eosinophils/100 WBC (Bld) 3.7 % Normal 0.0-8.1 [facility] Comment on above: Performed By: #### 2 [id number] #### [facility] [address] [place] [address] Erythrocyte distribution width Ratio (RBC) 12.3 % Normal 12.0-15.4 [facility] Comment on above: Performed By: #### 2 [id number] #### [facility] [address] [place] [address] Hematocrit Volume Fraction (Bld) 44.6 % Normal 36.5-46.6 [facility] Comment on above: Performed By: #### 2 [id number] #### [facility] [address] [place] [address] Hemoglobin mass conc (Bld) 14.8 g/dL Normal 11.8-15.3 [facility] Comment on above: Performed By: #### 2 [id number] #### [facility] [address] [place] [address] Imm Grans Absolute 0.03 10*3/uL Normal 0.00-0.21 [facility] Comment on above: Performed By: #### 2 [id number] #### [facility] [address] [place] [address] Immature granulocytes #/vol (Bld) 0.3 % Normal [facility] Comment on above: Performed By: #### 2 [id number] #### [facility] [address] [place] [address] Lymphocytes #/vol (Bld) 2.31 10*3/uL Normal 0.40-2.84 [facility] Comment on above: Performed By: #### 2 [id number] #### [facility] [address] [place] [address] Lymphocytes/100 WBC (Bld) 22.6 % Normal 15.7-50.5 [facility] Comment on above: Performed By: #### 2 [id number] #### [facility] [address] [place] [address] MCH Entitic mass (RBC) 31.1 pg Normal 27.5-33.0 [facility] Comment on above: Performed By: #### 2 [id number] #### [facility] [address] [place] [address] MCHC mass conc (RBC) 33.2 g/dL Normal 30.1-35.0 [facility] Comment on above: Performed By: #### 2 [id number] #### [facility] [address] [place] [address] MCV Entitic volume (RBC) 93.7 fL Normal 85.4-100.0 [facility] Comment on above: Performed By: #### 2 [id number] #### [facility] [address] [place] [address] Monocytes #/vol (Bld) 0.63 10*3/uL Normal 0.25-0.83 [facility] Comment on above: Performed By: #### 2 [id number] #### [facility] [address] [place] [address] Monocytes/100 WBC (Bld) 6.2 % Normal 4.8-12.7 [facility] Comment on above: Performed By: #### 2 [id number] #### [facility] [address] [place] [address] Neutrophils Absolute 6.84 10*3/uL Normal 1.95-6.85 [facility] Comment on above: Performed By: #### 2 [id number] #### [facility] [address] [place] [address] Neutrophils/100 WBC (Bld) 66.7 % Normal 36.8-73.2 [facility] Comment on above: Performed By: #### 2 [id number] #### [facility] [address] [place] [address] NRBC Absolute 0.00 10*3/uL Normal [facility] Comment on above: Performed By: #### 2 [id number] #### [facility] [address] [place] [address] NRBC Automated 0.0 /100{WBCs} Normal [facility] Comment on above: Performed By: #### 2 [id number] #### [facility] [address] [place] [address] Platelet mean volume Entitic volume (Bld) 11.6 fL Normal 9.9-12.1 [facility] Comment on above: Performed By: #### 2 [id number] #### [facility] [address] [place] [address] Platelets #/vol (Bld) 184 10*3/uL Normal 155-404 [facility] Comment on above: Performed By: #### 2 [id number] #### [facility] [address] [place] [address] RBC #/vol (Bld) 4.76 10*6/uL Normal 3.85-5.10 [facility] Comment on above: Performed By: #### 2 [id number] #### [facility] [address] [place] [address] RDW SD 42.5 fL Normal 39.3-48.6 [facility] Comment on above: Performed By: #### 2 [id number] #### [facility] [address] [place] [address] WBC #/vol (Bld) 10.2 10*3/uL High 4.4-9.9 [facility] Comment on above: Performed By: #### 2 [id number] #### [facility] [address] [place] [address] Comprehensive Metabolic Pane dylan 05-05-2018 Albumin mass conc 4.5 g/dL Normal 3.4-5.0 [facility] Comment on above: Performed By: #### 1 [id number] #### [facility] [address] [place] [address] Albumin/Globulin mass ratio 1.7 {ratio} Normal 0.9-2.4 [facility] Comment on above: Performed By: #### 1 [id number] #### [facility] [address] [place] [address] ALP enzyme act/vol 80 U/L Normal 45-117 [facility] Comment on above: Performed By: #### 1 [id number] #### [facility] [address] [place] [address] ALT enzyme act/vol 37 U/L Normal 7-45 [facility] Comment on above: Performed By: #### 1 [id number] #### [facility] [address] [place] [address] Anion gap molar conc 13 mmol/L Normal 10-20 [facility] Comment on above: Performed By: #### 1 [id number] #### [facility] [address] [place] [address] AST enzyme act/vol 26 U/L Normal 13-39 [facility] Comment on above: Performed By: #### 1 [id number] #### [facility] [address] [place] [address] Bilirubin mass conc 0.6 mg/dL Normal 0.0-1.2 [facility] Comment on above: Performed By: #### 1 [id number] #### [facility] [address] [place] [address] Calcium mass conc 9.6 mg/dL Normal 8.6-10.3 [facility] Comment on above: Performed By: #### 1 [id number] #### [facility] [address] [place] [address] Chloride molar conc 105 mmol/L Normal 98-107 [facility] Comment on above: Performed By: #### 1 [id number] #### [facility] [address] [place] [address] Creatinine mass conc 0.95 mg/dL Normal 0.50-1.05 [facility] Comment on above: Performed By: #### 1 [id number] #### [facility] [address] [place] [address] GFR/1.73 sq M.predicted MDRD vol rate/area mL/min/{1.73_m2} Normal [facility] Comment on above: Result Comment: Inte rpretation for Chronic Kidney Disease: Stages 1&2 >60 Healthy or potential kidney damage. Mild decrease of GFR. Stage 3 30-59 Moderate decrease of GFR. Stage 4 15-29 Severe decrease of GFR. Stage 5 <15 Kidney failure or on dialysis. Performed By: #### 1 [id number] #### [facility] [address] [place] [address] Glucose mass conc 78 mg/dL Normal 70-100 [facility] Comment on above: Performed By: #### 1 [id number] #### [facility] [address] [place] [address] HCO3 molar conc (Bld) 26 mmol/L Normal 21-32 [facility] Comment on above: Performed By: #### 1 [id number] #### [facility] [address] [place] [address] Potassium molar conc 3.6 mmol/L Normal 3.5-5.1 [facility] Comment on above: Performed By: #### 1 [id number] #### [facility] [address] [place] [address] Protein mass conc 7.1 g/dL Normal 6.4-8.2 [facility] Comment on above: Performed By: #### 1 [id number] #### [facility] [address] [place] [address] Sodium molar conc 140 mmol/L Normal 136-145 [facility] Comment on above: Performed By: #### 1 [id number] #### [facility] [address] [place] [address] Urea nitrogen mass conc 10 mg/dL Normal 6-23 [facility] Comment on above: Performed By: #### 1 [id number] #### [facility] [address] [place] [address] Urea nitrogen/Creatinine mass ratio 11 mg/mg Normal 5-25 [facility] Comment on above: Performed By: #### 1 [id number] #### [facility] [address] [place] [address] ESR, Westergrenon 05-05-2018 ESR, Westergren 2 mm/h Normal 0-20 [facility] Comment on above: Performed By: #### 2 [id number] #### [facility] [address] [place] [address] Lipid Panelon 05-05-2018 Cholesterol in HDL mass conc 35 mg/dL Abnormal [facility] Comment on above: Result Comment: Age Normal Mod Risk High Risk 5-9 >46 38-46 <38 10-14 >44 40-44 <40 15-19 >42 38-42 <38 Adult >49 Performed By: #### 1 [id number] #### [facility] [address] [place] [address] Cholesterol in LDL mass conc 100 mg/dL Normal <130 [facility] Comment on above: Performed By: #### 1 [id number] #### [facility] [address] [place] [address] Cholesterol in VLDL mass conc 72 mg/dL Abnormal <30 [facility] Comment on above: Performed By: #### 1 [id number] #### [facility] [address] [place] [address] Cholesterol mass conc 207 mg/dL Abnormal <200 [facility] Comment on above: Performed By: #### 1 [id number] #### [facility] [address] [place] [address] Cholesterol.total/C holesterol in HDL mass ratio 5.9 {ratio} Normal [facility] Comment on above: Performed By: #### 1 [id number] #### [facility] [address] [place] [address] Triglyceride mass conc 361 mg/dL Abnormal <150 [facility] Comment on above: Result Comment: 150- 199 Borderline High 200-499 High >500 Very High Performed By: #### 1 [id number] #### [facility] [address] [place] [address] TSHon 05-05-2018 Thyrotropin Qn 1.75 mU/L Normal 0.44-3.98 [facility] [place] Comment on above: Performed By: #### 1 [id number] #### [facility] [address] [place] [address] Vitamin D, 25 Hydroxyon 04-12 Vitamin D, 25 Hydroxy 23 ng/mL Abnormal [facility] Comment on above: Result Comment: DEFI CIENCY <20 INSUFFICIENCY 20-29 OPTIMUM LEVEL 30-80 POSSIBLE TOXICITY >80 Performed By: #### V ITD #### [facility] [address] [place] [address] SPINE CERVICAL MIN 4 VIEWSon 05-03-2018 SPINE CERVICAL MIN 4 VIEWS DATE OF EXAM: May 03 2018 12:05PM CLINICAL HISTORY/ Patient Name: BOO ARENAS STUDY: SPINE CERVICAL MIN 4 VIEWS; 05/03/2018 12:05 pm INDICATION: NECK PAIN. COMPARISON: None. ACCESSION NUMBER(S): [id number] ORDERING CLINICIAN: NATE HERRON FINDINGS: The vertebral alignment is maintained and the vertebra are normal in height. The discs are maintained in height. The prevertebral soft tissues are not thickened. The posterior elements are intact. CONCLUSION: IMPRESSION: Negative Normal [facility] Vital Signs Date Time Vital Sign Value Performing Clinician Facility 04-03-2025 13:07-040 Body mass index (BMI) [Ratio] 42.26 kg/m2 Tamiko Hernandez GENETIC TECHNOLOGIST Work Phone: [facility] 04-03-2025 13:-040 Body temperature 98.49 [degF] Tamiko Hernandez GENETIC TECHNOLOGIST Work Phone: [facility] 04-03-2025 13:07-0400 Body weight 122.38 kg Tamiko Hernandez GENETIC TECHNOLOGIST Work Phone: [facility] 04-03-2025 13:07-0400 Diastolic blood pressure 92 mm[Hg] Tamiko Seniahholz GENETIC TECHNOLOGIST Work Phone: [facility] 04-03-2025 13:07-0400 Heart rate 82 /min Tamiko Aichholz GENETIC TECHNOLOGIST Work Phone: [facility] 04-03-2025 13:07-0400 Respiratory rate 18 /min Tamiko Aichholz GENETIC TECHNOLOGIST Work Phone: [facility] 04-03-2025 13:07-0400 SaO2% (BldA) [Mass fraction] 98 % Tamiko Seniahholz GENETIC TECHNOLOGIST Work Phone: [facility] 04-03-2025 13:07-0400 Systolic blood pressure 138 mm[Hg] Tamiko Aichholz GENETIC TECHNOLOGIST Work Phone: [facility] 10-25-2024 08:40-0500 Body height 170.2 cm Tamiko Aichholz GENETIC TECHNOLOGIST Work Phone: [facility] 10-25-2024 08:40-0500 Body mass index (BMI) [Ratio] 47.21 kg/m2 Tamiko Seniahholz GENETIC TECHNOLOGIST Work Phone: [facility] 10-25-2024 08:40-0500 Body temperature 98.49 [degF] Tamiko Seniahholz GENETIC TECHNOLOGIST Work Phone: [facility] 10-25-2024 08:40-0500 Body weight 136.71 kg Tamiko Seniahholz GENETIC TECHNOLOGIST Work Phone: [facility] 10-25-2024 08:40-0500 Diastolic blood pressure 88 mm[Hg] Tamiko Aichholz GENETIC TECHNOLOGIST Work Phone: [facility] 10-25-2024 08:40-0500 Heart rate 63 /min Tamiko Aichholz GENETIC TECHNOLOGIST Work Phone: [facility] 10-25-2024 08:40-0500 Respiratory rate 18 /min Tamiko Aichholz GENETIC TECHNOLOGIST Work Phone: [facility] 10-25-2024 08:40-0500 SaO2% (BldA) [Mass fraction] 97 % Tamiko Riverald GENETIC TECHNOLOGIST Work Phone: [facility] 10-25-2024 08:40-0500 Systolic blood pressure 118 mm[Hg] Tamiko Hernandez GENETIC TECHNOLOGIST Work Phone: [facility] 08-15-2024 20:21-0500 Body height [facility]2 cm [facility] 08-15-2024 20:21-0500 Body mass index (BMI) [Ratio] 52.94 kg/m2 [facility] 1 [facility] 08-15-2024 20:21-0500 Body weight 153.32 kg [facility] 1 [facility] 07-25-2024 13:46-0400 Body height 170.2 cm Tamiko Riverald GENETIC TECHNOLOGIST Work Phone: [facility] 07-25-2024 13:46-0400 Body mass index (BMI) [Ratio] 51.84 kg/m2 Tamiko Ferrerjamal GENETIC TECHNOLOGIST Work Phone: [facility] 07-25-2024 13:46-0400 Body temperature 99 [degF] Tamiko Connmarni GENETIC TECHNOLOGIST Work Phone: [facility] 07-25-2024 13:46-0400 Body weight 150.14 kg Tamiko Riverald GENETIC TECHNOLOGIST Work Phone: [facility] 07-25-2024 13:46-0400 Diastolic blood pressure 98 mm[Hg] Tamiko Ferrerjamal GENETIC TECHNOLOGIST Work Phone: [facility] 07-25-2024 13:46-0400 Heart rate 90 /min Tamiko David GENETIC TECHNOLOGIST Work Phone: [facility] 07-25-2024 13:46-0400 Respiratory rate 19 /min Tamiko Connmarni GENETIC TECHNOLOGIST Work Phone: [facility] 07-25-2024 13:46-0400 SaO2% (BldA) [Mass fraction] 98 % Tamiko Connmarni GENETIC TECHNOLOGIST Work Phone: [facility] 07-25-2024 13:46-0400 Systolic blood pressure 134 mm[Hg] Tamiko Miguelz GENETIC TECHNOLOGIST Work Phone: [facility] 07-05-2024 11:39-0400 Body height 170.2 cm Zoe Marshall GENETIC TECHNOLOGIST Work Phone: [facility] 07-05-2024 11:39-0400 Body mass index (BMI) [Ratio] 53.25 kg/m2 Zoe Marshall GENETIC TECHNOLOGIST Work Phone: [facility] 07-05-2024 11:39-0400 Body weight 154.22 kg Zoe Marshall GENETIC TECHNOLOGIST Work Phone: [facility] 07-04-2024 14:21-0400 Body height 170.18 cm Tamiko Aichholz Work Phone: [facility] 07-04-2024 14:21-0400 Body mass index (BMI) [Ratio] 53.3 kg/m2 Tamiko Aichholz Work Phone: [facility] 07-04-2024 14:21-0400 Body temperature 98 [degF] Tamiko Aichholz Work Phone: [facility] 07-04-2024 14:21-0400 Body weight 154.39 kg Tamiko Aichholz Work Phone: [facility] 07-04-2024 14:21-0400 Diastolic blood pressure 73 mm[Hg] Tamiko Aichholz Work Phone: [facility] 07-04-2024 14:21-0400 Heart rate 82 /min Tamiko Aichholz Work Phone: [facility] 07-04-2024 14:21-0400 Respiratory rate 18 /min Tamiko Aichholz Work Phone: [facility] 07-04-2024 14:21-0400 SaO2% (BldA) [Mass fraction] 96 % Tamiko Aichholz Work Phone: [facility] 07-04-2024 14:21-0400 Systolic blood pressure 124 mm[Hg] Tamiko Hernandez Work Phone: [facility] 12-04-2022 09:10-0500 Body height 170.18 cm Annette Homer Other [facility] Other 12-04-2022 09:10-0500 Body mass index (BMI) [Ratio] 46.98 kg/m2 Annette Homer Other [facility] Other 12-04-2022 09:10-0500 Body temperature 98.7 [degF] Annette Coronel Other [facility] Other 12-04-2022 09:10-0500 Body weight 136.08 kg Annette Coronel Other [facility] Other 12-04-2022 09:10-0500 Diastolic blood pressure 78 mm[Hg] Annette Coronel Other [facility] Other 12-04-2022 09:10-0500 Respiratory rate 18 /min Annette Coronel Other [facility] Other 12-04-2022 09:10-0500 SaO2% (BldA) [Mass fraction] 97 % Annette Coronel Other [facility] Other 12-04-2022 09:10-0500 Systolic blood pressure 127 mm[Hg] Annette Coronel Other [facility] Other 08-06-2022 10:05-0400 Body height 170.18 cm Liliana Morfin Other [facility] Other 08-06-2022 10:05-0400 Body mass index (BMI) [Ratio] 46.98 kg/m2 Liliana Morfin Other [facility] Other 08-06-2022 10:05-0400 Body temperature 97.8 [degF] Liliana Jollymond Other [facility] Other 08-06-2022 10:05-0400 Body weight 136.08 kg Liliana Morfin Other [facility] Other 08-06-2022 10:05-0400 Diastolic blood pressure 89 mm[Hg] Liliana Morfin Other [facility] Other 08-06-2022 10:05-0400 Respiratory rate 18 /min Liliana Morfin Other [facility] Other 08-06-2022 10:05-0400 SaO2% (BldA) [Mass fraction] 97 % Liliana Morfin Other [facility] Other 08-06-2022 10:05-0400 Systolic blood pressure 146 mm[Hg] Liliana Morfin Other [facility] Other 03-16-2022 14:15-0400 Body height 170.18 cm Annette Homer Other [facility] Other 03-16-2022 14:15-0400 Body mass index (BMI) [Ratio] 47.29 kg/m2 Annette Coronel Other [facility] Other 03-16-2022 14:15-0400 Body temperature 97.7 [degF] Annette Coronel Other [facility] Other 03-16-2022 14:15-0400 Body weight 136.99 kg Annette Coronel Other [facility] Other 03-16-2022 14:15-0400 Diastolic blood pressure 85 mm[Hg] nAnette Coronel Other [facility] Other 03-16-2022 14:15-0400 Respiratory rate 18 /min Annette Coronel Other [facility] Other 03-16-2022 14:15-0400 SaO2% (BldA) [Mass fraction] 99 % Annette Coronel Other [facility] Other 03-16-2022 14:15-0400 Systolic blood pressure 136 mm[Hg] Annette Coronel Other [facility] Other 09-29-2021 10:45-0500 Body height 170.18 cm Annette Coronel Other [facility] Other 09-29-2021 10:45-0500 Body mass index (BMI) [Ratio] 46.82 kg/m2 Annette Coronel Other [facility] Other 09-29-2021 10:45-0500 Body temperature 98.9 [degF] Annette Coronel Other [facility] Other 09-29-2021 10:45-0500 Body weight 135.63 kg Annette Coronel Other [facility] Other 09-29-2021 10:45-0500 Respiratory rate 18 /min Annette Coronel Other [facility] Other 09-29-2021 10:45-0500 SaO2% (BldA) [Mass fraction] 97 % Annette Coronel Other [facility] Other 09-15-2021 12:10-0500 Body height 170.18 cm Linda Ginty Other [facility] Other 09-15-2021 12:10-0500 Body mass index (BMI) [Ratio] 47.14 kg/m2 Linda Ginty Other [facility] Other 09-15-2021 12:10-0500 Body temperature 98.1 [degF] Linda Ginty Other [facility] Other 09-15-2021 12:10-0500 Body weight 136.53 kg Linda Ginty Other [facility] Other 09-15-2021 12:10-0500 Diastolic blood pressure 68 mm[Hg] Linda Ginty Other [facility] Other 09-15-2021 12:10-0500 Respiratory rate 18 /min Linda Ginty Other [facility] Other 09-15-2021 12:10-0500 SaO2% (BldA) [Mass fraction] 98 % Linda Ginty Other [facility] Other 09-15-2021 12:10-0500 Systolic blood pressure 138 mm[Hg] Linda Ginty Other [facility] Other 09-28-2020 10:15-0500 BP Diastolic 86 mm[Hg] [facility] 09-28-2020 10:15-0500 BP Systolic 125 mm[Hg] [facility] 09-28-2020 10:15-0500 Pulse (Heart Rate) 72 /min [facility] [place] 09-28-2020 10:15-0500 Respiratory Rate 16 /min [facility] [place] 09-28-2020 09:59-0500 Body Temperature 97.5 [degF] [facility] [place] 09-28-2020 09:59-0500 Pulse Oximetry 96 % [facility] [place] 09-28-2020 08:10-0500 BMI (Body Mass Index) 49.72 kg/m2 [facility] [place] 09-28-2020 08:10-0500 Body weight 144 kg [facility] [place] 09-28-2020 08:10-0500 Height 170.2 cm [facility] JEROMY Encounters Encounter Date Encounter Type Care Provider Facility Start: 06-06-2025 End: 06-06-2025 Refill Tamiko Hernandez GENETIC TECHNOLOGIST Work Phone: [facility] Comment on above: UTI symptoms (Primar y Dx) Start: 05-28-2025 End: 05-29-2025 Refill Tamiko Hernandez GENETIC TECHNOLOGIST Work Phone: [facility] Comment on above: Anxiety and depressi on Start: 05-18-2025 End: 05-18-2025 ambulatory [facility] Start: 04-03-2025 End: 04-03-2025 Bamboo flowsheet Tamiko Hernandez GENETIC TECHNOLOGIST Work Phone: [facility] Start: 04-03-2025 End: 04-03-2025 Bamboo flowsheet Taimko Hernandez GENETIC TECHNOLOGIST Work Phone: [facility] Start: 04-03-2025 End: 04-03-2025 ambulatory TAMIKO AICHHOLZ Not Available Start: 04-03-2025 End: 04-03-2025 Office outpatient visit 25 minutes Tamiko Hernandez GENETIC TECHNOLOGIST Work Phone: [facility] Comment on above: Essential hypertensi on (Primary Dx); QUITA (obstructive sleep apnea); Morbid (severe) obesity due to excess calories (CMS-HCC); Attention deficit hyperactivity disorder (ADHD), predominantly inattentive type ; Anxiety and depression ; Binge eating disorder, unspecified severity ; Major depressive disorder, single episode, moderate (HCC); Palpitations Start: 03-23-2025 End: 03-23-2025 Refill Tamiko Miguelz GENETIC TECHNOLOGIST Work Phone: [facility] Comment on above: Attention deficit hy peractivity disorder (ADHD), predominantly inattentive type Start: 12-29-2024 End: 12-29-2024 ambulatory TAMIKO BINHOLZ Not Available Start: 12-29-2024 End: 12-29-2024 Bamboo flowsheet Tamiko Miguelz GENETIC TECHNOLOGIST Work Phone: [facility] Start: 12-29-2024 End: 12-29-2024 Bamboo flowsheet Tamiko Miguelz GENETIC TECHNOLOGIST Work Phone: [facility] Start: 12-21-2024 End: 12-21-2024 Refill Tamiko Aicjohnholz GENETIC TECHNOLOGIST Work Phone: [facility] Comment on above: Anxiety and depressi on (CMS/HCC) Start: 11-23-2024 End: 11-23-2024 ambulatory [facility] Start: 10-25-2024 End: 10-25-2024 Bamboo flowsheet Tamiko Aicjohnholz GENETIC TECHNOLOGIST Work Phone: [facility] Start: 10-25-2024 End: 10-25-2024 Bamboo flowsheet Tamiko Aichholz GENETIC TECHNOLOGIST Work Phone: [facility] Start: 10-25-2024 End: 10-25-2024 Office outpatient visit 25 minutes Tamiko Hernandez GENETIC TECHNOLOGIST Work Phone: [facility] Comment on above: Anxiety and depressi on (CMS/HCC) (Primary Dx); Major depressive disorder, single episode, moderate (HCC) (CMS/HCC); Morbid (severe) obesity due to excess calories (CMS/HCC); Body mass index (BMI) 50.0-59.9, adult (CMS/HCC); QUITA (obstructive sleep apnea); Essential hypertension (CMS/HCC); GERD without esophagitis; Bilateral lower extremity edema; Attention deficit hyperactivity disorder (ADHD), predominantly inattentive type (CMS/HCC); Binge eating disorder, unspecified severity; Allergic rhinitis, unspecified seasonality, unspecified trigger; Acute diffuse otitis externa of both ears Start: 10-25-2024 End: 10-25-2024 ambulatory TAMIKO DAVID Not Available Start: 09-03-2024 End: 09-05-2024 Refill Tamiko David GENETIC TECHNOLOGIST Work Phone: [facility] Comment on above: Vitamin D deficiency Start: 08-15-2024 End: 08-15-2024 ambulatory [facility] Start: 08-15-2024 End: 08-15-2024 [facility] Comment on above: QUITA on CPAP Start: 07-26-2024 End: 07-26-2024 Refill Tamiko David GENETIC TECHNOLOGIST Work Phone: [facility] Comment on above: Vitamin D deficiency Start: 07-25-2024 End: 07-25-2024 Bamboo flowsheet Tamiko Hernandez GENETIC TECHNOLOGIST Work Phone: [facility] Start: 07-25-2024 End: 07-25-2024 Bamboo flowsheet Tamiko Hernandez GENETIC TECHNOLOGIST Work Phone: [facility] Start: 07-25-2024 End: 07-25-2024 Office outpatient visit 25 minutes Tamiko Hernandez GENETIC TECHNOLOGIST Work Phone: [facility] Comment on above: Attention deficit hy peractivity disorder (ADHD), predominantly inattentive type (CMS/HCC) (Primary Dx); Essential hypertension (CMS/HCC); Allergic rhinitis, unspecified seasonality, unspecified trigger; Bilateral lower extremity edema; Anxiety and depression (CMS/HCC); Fibromyalgia; Morbid obesity (CMS/HCC); Binge eating disorder, unspecified severity; URI, acute Start: 07-25-2024 End: 07-25-2024 ambulatory TAMIKO HERNANDEZ Not Available Start: 07-05-2024 End: 07-05-2024 Bamboo flowsheet Zoe Marshall NP Work Phone: [facility] Start: 07-05-2024 End: 07-05-2024 [employer] V[employer] Zoe Marshall GENETIC TECHNOLOGIST Work Phone: [facility] Start: 07-05-2024 End: 07-05-2024 Office outpatient new 30 minutes Zoe Marshall NP Work Phone: [facility] Comment on above: Sprain of deltoid li gament of right ankle, initial encounter (Primary Dx); Acute right ankle pain Start: 07-05-2024 End: 07-05-2024 ambulatory ZOE MARSHALL Not Available Start: 07-04-2024 End: 07-04-2024 ambulatory Tamiko Hernandez Work Phone: [facility] Work Phone: Start: 07-04-2024 End: 07-04-2024 Patient encounter procedure Tamiko Hernandez Work Phone: [facility] Work Phone: Start: 06-22-2024 End: 06-22-2024 Subsequent hospital visit by physician [facility] Sleep 1 [facility] Sleep Center Start: 06-08-2024 End: 06-08-2024 Refill Tamiko Hernandez GENETIC TECHNOLOGIST Work Phone: [facility] FM Comment on above: Attention deficit hy peractivity disorder (ADHD), predominantly inattentive type (CMS/HCC) Start: 05-24-2024 End: 05-24-2024 Subsequent hospital visit by physician Tamiko Hernandez TANK STAVE ASSEMBLER - GENETIC TECHNOLOGIST Work Phone: [facility] Laboratory Comment on above: Essential hypertensi on; QUITA (obstructive sleep apnea); Anxiety and depression; GERD without esophagitis; Arthritis; Fibromyalgia; History of nicotine use; Morbid obesity with BMI of 50.0-59.9, adult ([facility]) Start: 05-24-2024 End: 05-26-2024 ambulatory [facility]ATO [facility] Start: 05-20-2024 End: 05-20-2024 ambulatory FORTUNATO [facility] Start: 05-12-2024 End: 05-12-2024 ambulatory KRISTY ACUNA Not Available Start: 04-25-2024 End: 04-25-2024 ambulatory TAMIKO HERNANDEZ Not Available Start: 04-07-2024 End: 04-07-2024 ambulatory WILL MENDOZA Not Available Start: 03-30-2024 End: 03-30-2024 ambulatory MD Marcelo Weaver Work Phone: [facility] Work Phone: Start: 03-30-2024 End: 03-30-2024 Departed Referred MD Marcelo Weaver Work Phone: [facility] Start: 03-09-2024 End: 03-09-2024 ambulatory FORTUNATO [facility] Start: 02-29-2024 End: 02-29-2024 ambulatory MD Marcelo Weaver Work Phone: [facility] Work Phone: Start: 02-29-2024 End: 02-29-2024 Departed Referred MD Marcelo Weaver Work Phone: [facility] Start: 02-05-2024 End: 02-06-2024 ambulatory TAMIKO HERNANDEZ [facility] Start: 01-26-2024 End: 01-26-2024 [facility] Start: 01-22-2023 End: 01-23-2023 ambulatory MUSIC SPECIALIST TAMIKO AICHHOLZ Facility:H1 Start: 12-18-2022 End: 12-19-2022 ambulatory MUSIC SPECIALIST TAMIKO AICHHOLZ Facility:H1 Start: 12-04-2022 End: 12-04-2022 ambulatory Annettegema Coronel Other [facility] Other Start: 12-04-2022 Office outpatient vi sit 25 minutes Annette Homer [facility] Start: 10-28-2022 End: 10-29-2022 ambulatory MUSIC SPECIALIST TAMIKO AICHHOLZ Facility:H1 Start: 08-06-2022 End: 08-06-2022 ambulatory Liliana Morfin Other [facility] Other Start: 08-06-2022 Office outpatient vi sit 15 minutes Lilianaty Morfin [facility] Start: 07-18-2022 End: 07-19-2022 ambulatory MUSIC SPECIALIST TAMIKO AICHHOLZ Facility:H1 Start: 07-14-2022 End: 07-15-2022 ambulatory MUSIC SPECIALIST TAMIKO AICHHOLZ Facility:H1 Start: 05-07-2022 End: 05-08-2022 ambulatory MUSIC SPECIALIST TAMIKO AICHHOLZ Facility:H1 Start: 04-23-2022 End: 04-24-2022 ambulatory MUSIC SPECIALIST TAMIKO AICHHOLZ Facility:H1 Start: 04-11-2022 Encounter for genera l adult medical examination without abnormal findings MUSIC SPECIALIST TAMIKO BINBONNIEZ [facility] Start: 04-08-2022 End: 04-09-2022 ambulatory MUSIC SPECIALIST TAMIKO AICHHOLZ Facility:H1 Start: 04-08-2022 End: 04-09-2022 Encounter for general adult medical examination without abnormal findings MUSIC SPECIALIST TAMIKO AICHHOLZ Facility:H1 Start: 03-16-2022 End: 03-16-2022 ambulatory Annettegema Coronel Other [facility] Other Start: 03-16-2022 Office outpatient vi sit 15 minutes Annette Homer [facility] Start: 03-15-2022 End: 03-16-2022 ambulatory ALICIA CONNHHOLLd Facility:H1 Start: 09-29-2021 End: 09-29-2021 ambulatory Annette Coronel Other [facility] Other Start: 09-29-2021 Office outpatient vi sit 15 minutes Annette Homer [facility] Start: 09-15-2021 End: 09-15-2021 ambulatory Linda Ginty Other [facility] Other Start: 09-15-2021 Office outpatient vi sit 25 minutes Linda Ginty [facility] Start: 09-28-2020 End: 09-28-2020 Subsequent hospital visit by physician Fortunato Thorpe Work Phone: [facility] Start: 09-24-2020 End: 09-28-2020 Subsequent hospital visit by physician [facility] Yousuf Pat Screening Schedule [facility] PRE ADMIT Comment on above: Preoperative testing Start: 07-09-2020 End: 07-13-2020 Subsequent hospital visit by physician [facility] Covdaron Pat Screening Schedule [facility] Laboratory Comment on above: Current nicotine use ; Essential hypertension; QUITA (obstructive sleep apnea); Arthritis; Anxiety and depression; Gastroesophageal reflux disease without esophagitis; Obesity, Class III, BMI 40-49.9 (morbid obesity) ([facility]); Fibromyalgia Preop testing Start: 04-18-2020 End: 04-18-2020 Subsequent hospital visit by physician [facility] Lab Drawing Room [facility] Laboratory Comment on above: Essential hypertensi on; QUITA (obstructive sleep apnea); Arthritis; Anxiety and depression; Gastroesophageal reflux disease without esophagitis; Obesity, Class III, BMI 40-49.9 (morbid obesity) (HCC); Fibromyalgia; Obstructive sleep apnea; Morbid obesity with BMI of 45.0-49.9, adult ([facility]) Start: 12-17-2018 End: 12-17-2018 Patient encounter procedure LETICIA RILEY Facility:[facility] [employer] Start: 12-15-2018 Patient encounter procedure LETICIA RILEY Facility: Start: 06-01-2018 Patient encounter procedure NATE HERRON Facility:[facility] Start: 05-05-2018 Patient encounter procedure NATE HERRON Facility:[id number] Start: 05-03-2018 Patient encounter procedure NATE LAWTONANDRAN Facility:[id number] Start: 05-03-2018 Patient encounter Sam Momin lity:[id number] Procedures Date Procedure Procedure Detail Performing Clinician Start: 07-04-2024 X-ray of left ankle Lis a Seniajohnjamal Work Phone: Start: 07-04-2024 X-ray of left foot Tamiko David Work Phone: Start: 05-24-2024 End: 05-24-2024 Lipid panel Maya Higginbotham Jose TANK STAVE ASSEMBLER [employer] Work Phone: Start: 05-24-2024 VITAMIN B12 & FOLATE Sh yuriy Higginbotham Jose TANK STAVE ASSEMBLER [employer] Work Phone: Start: 05-24-2024 Comprehensive metabo lic panel Maya Higginbotham Jose TANK STAVE ASSEMBLER [employer] Work Phone: Start: 12-29-2023 Microscopic observat ion [Identifier] in Cervix by Cyto stain Tamiko David GENETIC TECHNOLOGIST Work Phone: Start: 09-24-2020 COVID-19 Handy Jau joanne Work Phone: Start: 07-09-2020 Drug screen class list a Maya Higginbotham Jose Work Phone: Start: 07-09-2020 COVID-19 AMBULATORY Bec ky Dawn Start: 04-18-2020 VITAMIN B12 & FOLATE Gr sylvia Thorpe Work Phone: Start: 04-18-2020 25 hydroxy includes fractions if performed Fortunato Thorpe Work Phone: Start: 04-18-2020 Assay of ferritin Jabari Thorpe Work Phone: Start: 04-18-2020 Assay of free thyroxine Fortunato Thorpe Work Phone: Start: 04-18-2020 Assay of magnesium Lucian Thorpe Work Phone: Start: 04-18-2020 Assay of parathormone G jj Thorpe Work Phone: Start: 04-18-2020 Assay of thyroid stimulating hormone tsh Fortunato Thorpe Work Phone: Start: 04-18-2020 Blood count complete auto&auto difrntl wbc Fortunato Thorpe Work Phone: Start: 04-18-2020 Comprehensive metabo lic panel Fortunato Thorpe Work Phone: Start: 04-18-2020 Hemoglobin glycosylated a1c Fortunato Thorpe Work Phone: Start: 04-18-2020 Iron binding capacity G jj Thorpe Work Phone: Start: 04-18-2020 Lipid panel Fortunato Thorpe Work Phone: Plan of Treatment Date Care Activity Detail Author Start: 05-24-2027 Diabetes screen Diabetes [facility] Start: 12-28-2026 Screening for malignant neoplasm of cervix [facility] Start: 07-13-2025 Depression Monitoring [facility] Start: 06-20-2025 End: 06-20-2025 Patient encounter procedure 06/20/2025 3:30 PM EDT Office Visit [facility] [address] [place] [address] Tamiko Hernandez, LOYD [address] [place] [address] [facility] Start: 06-20-2025 Depression Monitoring Depression [facility] Start: 05-16-2025 End: 05-16-2025 Patient encounter procedure 05/16/2025 10:20 AM EDT Office Visit [facility] OB [address] [place] [phone] Will Mendoza DO [address] [place] [address] [facility] Start: 05-15-2025 End: 05-15-2025 Patient encounter procedure 05/15/2025 10:00 AM EDT Office Visit [facility] [address] [place] [phone] Will Mendoza DO [address] [facility] [place] [address] [facility] Start: 05-10-2025 Depression Monitoring Depression Monitoring [facility] Start: 04-03-2025 End: 04-03-2025 Patient encounter procedure 04/03/2025 1:00 PM EDT Office Visit [facility] [address] [place] [address] Tamiko Hernandez, LOYD [address] [place] [phone] [facility] Start: 12-29-2024 End: 12-29-2024 Patient encounter procedure 12/29/2024 2:20 PM EDT Office Visit [facility] [address] [place] [address] Tamiko Hernandez, GENETIC TECHNOLOGIST [address] [place] [address] [facility] Start: 10-25-2024 End: 10-25-2024 Patient encounter procedure 10/25/2024 8:40 AM EST Office Visit [facility] [address] [place] [address] Tamiko Hernandze, GENETIC TECHNOLOGIST [address] [place] [address] [facility] Start: 08-19-2024 End: 08-19-2024 Patient encounter procedure 08/19/2024 9:45 AM EST Office Visit [facility] [address] [facility] [address] [place] [address] Maya Bender, TANK STAVE ASSEMBLER - MUSIC SPECIALIST [address] [facility] [address] [place] [address] PIF7 of 6 [facility] 6 mo con visits [facility] Comment on above: PIF7 of 6 [facility] 6 mo con visits Start: 08-02-2024 End: 08-02-2024 Patient encounter procedure 08/02/2024 2:30 PM EDT Office Visit [facility] [address] [facility] [address] [place] [address] Zoe Marshall, GENETIC TECHNOLOGIST [address] [place] [address] [facility] Start: 07-26-2024 End: 07-26-2024 Patient encounter procedure 07/26/2024 9:30 AM EDT Office Visit [facility] [address] [facility] [address] [place] [address] Zoe Marshall, LOYD [address] [place] [address] [facility] Start: 07-25-2024 End: 07-25-2024 Patient encounter procedure 07/25/2024 1:40 PM EDT Office Visit [facility] [address] [place] [address] Tamiko Hernandez NP [address] [place] [address] Arrived [facility] Comment on above: Arrived Start: 07-08-2024 End: 07-08-2024 Patient encounter procedure 07/08/2024 10:30 AM EDT Office Visit [facility] [address] [address] Maya Bender, TANK STAVE ASSEMBLER - MUSIC SPECIALIST [address] [address] PIF 6 of 6 [facility] 6 mo con visits [facility] Comment on above: PIF 6 of 6 [facility] 6 mo con visits Start: 07-05-2024 End: 07-05-2024 Patient encounter procedure 07/05/2024 11:15 AM EDT Office Visit [facility] [address] [facility] [address] [place] [address] Zoe Marshall, GENETIC TECHNOLOGIST [address] [place] [address] Arrived [facility] Comment on above: Arrived Start: 07-04-2024 Patient referral [facility] Work Phone: Start: 06-22-2024 End: 06-22-2024 Patient encounter procedure 06/22/2024 8:00 PM EDT Appointment [facility] Sleep Center [address] [place] [phone] Titration [facility] Sleep Center Comment on above: Titration Start: 06-12-2024 COVID-19 Vaccine ( season) COVID-19 Vaccine () [employer] Start: 06-08-2024 End: 06-08-2024 Patient encounter procedure 06/08/2024 10:00 AM EDT Office Visit [facility] [address] [facility] [address] [place] [address] Maya Bender, TANK STAVE ASSEMBLER - MUSIC SPECIALIST [address] [facility] [address] [place] [address] PIF 5 of 6 [facility] 6 mo con visits [facility] Comment on above: PIF 5 of 6 [facility] 6 mo con visits Start: 05-12-2024 Influenza vaccination Flu vaccine (#1) [employer] Start: 06-12-2023 COVID-19 Vaccine ( season) COVID-19 Vaccine () [employer] Start: 04-18-2021 Creatinine measurement Creatinine monitoring [facility] [place] [place] Start: 04-18-2021 Potassium monitoring Potassium monitoring [facility] [place], [place] Start: 11-21-2020 End: 11-21-2020 Office Visit 11/21/2020 Office Visit Bariatrics Fortunato Thorpe DO [address] [place] [phone] [facility] Start: 10-24-2020 End: 10-24-2020 Office Visit 10/24/2020 Office Visit Bariatrics Maya Bender, TANK STAVE ASSEMBLER - MUSIC SPECIALIST [address] [place] [phone] [facility] Start: 08-22-2020 End: 08-22-2020 Office Visit 08/22/2020 Office Visit Bariatrics Maya Bender, TANK STAVE ASSEMBLER - MUSIC SPECIALIST [address] [place] [phone] [facility] Start: 08-16-2020 End: 08-16-2020 Nurse Only 08/16/2020 Nurse Only Bariatrics [facility] Start: 07-25-2020 End: 07-25-2020 Office Visit 07/25/2020 Office Visit Bariatrics Maya Bender TANK STAVE ASSEMBLER - MUSIC SPECIALIST [address] [place] [phone] [facility] Start: 07-13-2020 End: 07-13-2020 Hospital Encounter [facility] [place] Comment on above: EGD ESOPHAGOGASTRODUODENOSCOPY Start: 07-12-2020 End: 07-12-2020 Nurse Only 07/12/2020 Nurse Only Bariatrics [facility] Start: 06-20-2020 End: 06-20-2020 Office Visit 06/20/2020 Office Visit Bariatrics Maya Bender, TANK STAVE ASSEMBLER - MUSIC SPECIALIST [address] [place] [phone] [facility] Start: 06-12-2020 Influenza vaccination Flu vaccine (#1) [place] Start: 05-23-2020 End: 05-23-2020 Office Visit 05/23/2020 Office Visit Bariatrics Fortunato Thorpe DO [address] [facility] [address] [place] [phone] [facility] Start: 2017 Screening for malignant neoplasm of cervix HPV/Cotest [facility] Start: 2008 Screening for malignant neoplasm of cervix Cervical cancer screen [place], [place] Start: 2006 DTaP/Tdap/Td vaccine (1 - Tdap) DTaP/Tdap/Td vaccine (1 - Tdap) [facility] Start: 2006 Hepatitis B vaccine (1 of 3 - 19+ 3-dose series) Hepatitis B vaccine (1 of 3 - 19+ 3-dose series) [facility] Start: 2005 Hepatitis C screening Hepatitis C screen [facility] Start: 2002 HIV screening HIV screen [facility] Start: 2000 Varicella vaccine (1 of 2 - 13+ 2-dose series) Varicella vaccine (1 of 2 - 13+ 2-dose series) [facility] Start: 1993 Pneumococcal 0-64 years Vaccine (1 of 1 - PPSV23) Pneumococcal 0-64 years Vaccine (1 of 1 - PPSV23) [place] Start: 1988 Varicella vaccine (1 of 2 - 2-dose childhood series) Varicella vaccine (1 of 2 - 2-dose childhood series) [place] Start: 1987 Creatinine measurement Creatinine monitoring [place], [place] Start: 1987 Potassium monitoring Potassium monitoring [place] End: 04-18-2020 Nicotine, Blood Nicotine, Blood Lab Routine Essential hypertension QUITA (obstructive sleep apnea) Arthritis Anxiety and depression Gastroesophageal reflux disease without esophagitis Obesity, Class III, BMI 40-49.9 (morbid obesity) ([facility]) Fibromyalgia 1 Occurrences starting 04/18/2020 until 04/18/2020 [facility] [place] Comment on above: 1 Occurrences starting 04/18/2020 until 04/18/2020 Nicotine, Blood [facility] [place] End: 07-09-2020 Nicotine, Blood Nicotine, Blood Lab Routine Current nicotine use 1 Occurrences starting 07/09/2020 until 07/09/2020 [place] Comment on above: 1 Occurrences starting 07/09/2020 until 07/09/2020 End: 05-24-2024 Nicotine, Blood [employer] Comment on above: 1 Occurrences starting 05/24/2024 until 05/24/2024 Oxygen therapy [[facility] Data Set] Initiate Oxygen Therapy Protocol Respiratory Care Routine Daily until discontinued starting 09/28/2020 [place] Comment on above: Daily until discontinued starting 2019 Patient referral [facility] Work Phone: End: 08-15-2024 Sleep Study with PAP Titration Sleep Study with PAP Titration Sleep Center Routine QUITA on CPAP 1 Occurrences starting 08/15/2024 until 08/15/2024 [employer] Comment on above: 1 Occurrences starting 08/15/2024 until 08/15/2024 Surgical Pathology Surgical Path ology Lab Routine Release Upon Ordering for 1 Occurrences starting 09/28/2020 [facility] [place] Comment on above: Release Upon Ordering for 1 Occurrences starting 09/28/2020 End: 04-18-2020 Vitamin A Vitamin A Lab Routine Obstructive sleep apnea Morbid obesity with BMI of 45.0-49.9, adult ([facility]) 1 Occurrences starting 04/18/2020 until 04/18/2020 [place] Comment on above: 1 Occurrences starting 04/18/2020 until 04/18/2020 Vitamin A Vitamin A Lab Ro utine Obstructive sleep apnea Morbid obesity with BMI of 45.0-49.9, adult ([facility]) 04/18/2020 10:16 AM EDT [facility] [place], [place] End: 05-24-2024 Vitamin A [employer] Comment on above: 1 Occurrences starting 05/24/2024 until 05/24/2024 End: 04-18-2020 Vitamin B1 Vitamin B1 Lab Routine Obstructive sleep apnea Morbid obesity with BMI of 45.0-49.9, adult (HCC) 1 Occurrences starting 04/18/2020 until 04/18/2020 [place] Comment on above: 1 Occurrences starting 04/18/2020 until 04/18/2020 Vitamin B1 Vitamin B1 Lab R outine Obstructive sleep apnea Morbid obesity with BMI of 45.0-49.9, adult ([facility]) 04/18/2020 10:16 AM EDT [facility] [place] End: 05-24-2024 Vitamin B1 [employer] Comment on above: 1 Occurrences starting 05/24/2024 until 05/24/2024 XR Ankle - left GE 3 Views F [facility] XR Foot - left GE 3 Views [facility] End: 04-18-2020 Zinc Zinc Lab Routine Obstructive sleep apnea Morbid obesity with BMI of 45.0-49.9, adult ([facility]) 1 Occurrences starting 04/18/2020 until 04/18/2020 [place] Comment on above: 1 Occurrences starting 04/18/2020 until 04/18/2020 Zinc Zinc Lab Routine Obstructive sleep apnea Morbid obesity with BMI of 45.0-49.9, adult ([facility]) 04/18/2020 10:16 AM EDT [employer] [facility] [place] End: 05-24-2024 Zinc [employer] Comment on above: 1 Occurrences starting 05/24/2024 until 05/24/2024 Payers Date Payer Category Payer Self-pay [id number] 2020 Unknown [employer] [facility] MEDICAID xxxxxxxxxxx 2020-Present [phone] CLAIMS DEPARTMENT [address] [place] [address] xxxxxxxxxxx [id number] 2017 Medicaid [employer] [place] [id number] 2017-Present [address] [place] [address] [id number] 2017 [facility] Insurance [employer]ICA[employer] [id number] 1987 Unknown [id number] 2.16.840.1.550361.3.579.2. 355 1987 Unknown [id number] 2.16.840.1.776881.3.579.2. 355 1987 Unknown [id number] 2.16.840.1.866034.3.579.2. 355 1987 Unknown [id number] 2.16.840.1.452119.3.579.2. 355 1987 Unknown [id number] 2.16.840.1.914549.3.579.2. 355 1987 Unknown [id number] 2.16.840.1.008997.3.579.2. 593 1987 Unknown [id number] 2.16.840.1.356672.3.579.2. 593 1987 Unknown [id number] 2.16.840.1.035128.3.579.2. 593 1987 Unknown [id number] 2.16.840.1.416276.3.579.2. 59 1987 Unknown [id number] 2.16.840.1.358875.3.579.2. 593 1987 Unknown [id number] 2.16.840.1.304613.3.579.2. 59 1987 Unknown [id number] 2.16.840.1.022412.3.579.2. 593 1987 Unknown [id number] 2.16.840.1.075668.3.579.2. 593 1987 Unknown [id number] 2.16.840.1.262623.3.579.2. 593 1987 Unknown [id number] 2.16.840.1.440887.3.579.2. 177 1987 Unknown [id number] 2.16.840.1.393244.3.579.2. 173 1987 Unknown [id number] 2.16.840.1.704598.3.579.2. 173 1987 Unknown [id number] 2.16.840.1.191390.3.579.2. 173 1987 Unknown [id number] 2.16.840.1.787650.3.579.2. 173 1987 Unknown [id number] 2.16.840.1.465742.3.579.2. 173 1987 Unknown [id number] 2.16.840.1.037313.3.579.2. 173 1987 Unknown [id number] 2.16.840.1.749065.3.579.2. 175 1987 Unknown [id number] 2.16.840.1.282277.3.579.2. 1259 1987 Unknown [id number] 2.16.840.1.650510.3.579.2. 1259 1987 Unknown [id number] 2.16.840.1.737761.3.579.2. 1259 1987 Unknown [id number] 2.16.840.1.048364.3.579.2. 1259 1987 Unknown [id number] 2.16.840.1.865951.3.579.2. 1259 1987 Unknown [id number] 2.16.840.1.996394.3.579.2. 1259 1987 Unknown [id number] 2.16.840.1.672813.3.579.2. 1259 1987 Unknown [id number] 2.16.840.1.964771.3.579.2. 1259 1959 Unknown [id number] 1959 Unknown [id number] 2.16.840.1.107383.19 Unknown [id number] 2.16.840.1.798347.3.579.2. 531 Unknown [id number] 2.16.840.1.374875.3.579.2. 531 Unknown [id number] 2.16.840.1.668456.3.579.2. 531 Social History Date Type Detail Facility Tobacco smoking stat [facility] Unknown if ever smoked [facility] Start: 1985 Sex Assigned At Female [facility] Start: 04-18-2020 End: 09-30-2023 Tobacco smoking status NHIS Current every day smoker [place] Start: 04-18-2020 End: 06-08-2024 Alcohol intake Current drinker of alcohol (finding) [place] Start: 03-23-2020 History SDOH Alcohol Frequency 2 [place] Start: 03-23-2020 Alcohol Comment yearly [place] Start: 1985 Sex Assigned At Not on file [place] Exposure to SARS-CoV -2 (event) Unable to assess [place] Start: 06-20-2020 End: 12-31-2023 Tobacco use and exposure Never used [place] Start: 09-28-2020 End: 07-05-2024 Tobacco smoking status NHIS Former smoker [facility] Start: 07-21-2005 End: 07-21-2020 History of tobacco use Current smoker [place] Start: 09-28-2020 End: 12-29-2023 Cigarettes smoked current (pack per day) - Reported [facility] Start: 09-25-2020 Alcohol Comment RARELY [place] Exposure to SARS-CoV -2 (event) Not sure Kaya [facility] JEROMY HAMLIN Start: 12-03-2023 End: 12-29-2023 Sex Assigned At [facility] Start: 07-21-2005 End: 07-21-2020 History of tobacco use Cigarette Smoker [employer] Start: 07-05-2024 End: 04-03-2025 Alcoholic beverage intake Ex-drinker (finding) [facility] Do you belong to any clubs or organizations such as sikh groups, unions, fraVoltaix or athletic groups, or school groups? No [facility] Are you now , , , , never or living with a partner? [facility] How often to you hav e a drink containing alcohol? Never [facility] How many standard dr inks containing alcohol do you have on a typical day? Patient does not drink [facility] How hard is it for y ou to pay for the very basics like food, housing, medical care, and heating Not very hard [facility] Do you feel stress - tense, restless, nervous, or anxious, or unable to sleep at night because your mind is troubled all the time - these days [OSQ] To some extent [facility] (I/We) worried wheth er (my/our) food would run out before (I/we) got money to buy more. Never true [facility] Start: 09-25-2020 Gender identity Identifies as female gender (finding) [facility] How often to you hav e a drink containing alcohol? Monthly or less [facility] Start: 09-25-2020 Sexual orientation Heterosexual (finding) [facility] Goals Date Patient Goal Desired Activity /State Clinical Notes 09-15-2021 to 05-18-2025 Tamiko Hernandez NP - 04/03/2025 1:27 PM Reynaldo Hernandez NP - 04/03/2025 1:00 PM CLARK HOLGUIN - 04/03/2025 1:00 PM Reynaldo Hernandez NP - 04/03/2025 7:18 AM EDTPatient Instructions Note Date & Type Note Facility 05-18-2025 Note Cardiology Clinic No te HPI: 05/18/2025 Patient used to follow-up with . She is here today for follow-up visit. She states that she feels much better. She lost about 80 pounds since she was started on Ozempic. She exercises on a regular basis. She has sleep apnea and she is on CPAP. She denies any chest discomfort or shortness of breath at rest or with exertion. She denies orthopnea or paroxysmal nocturnal dyspnea. She reports occasional slight dizziness when changing position. She reports rare occasions of brief palpitations. She denies any legs edema or legs comfort on exertion She reports that her blood pressure at home in the categories of 120s over 80s 11/23/2024 Boo Liu is a 40 y.o. female being seen for 6 mo follow up atypical chest pain and hypertension. She had routine labs with lipid panel in May 2024. She has lost 39# since last apt, and has decided to hold off on the gastric sleeve surgery. Chest pain has resolved since she quit smoking on 10/12/2024. She hasn't been taking metoprolol because she says there were no refills on it. Patient adamantly denies any cardiac complaints or concerns. Patient denies any chest pain or shortness of breath. Patient denies any lower extremity edema, orthopnea, or proximal nocturnal dyspnea. No near-syncope or syncope. No dizziness or lightheadedness. Cardiology ROS: Review of Systems Constitutional: Positive for weight loss (39# since April 2024). Cardiovascular: Positive for palpitations. Neurological: Positive for light-headedness. All other systems reviewed and are negative. Past Medical History She has a past medical history of Abnormal ECG, Abnormal stress test, Atypical chest pain, and Hypertension. Surgical History She has a past surgical history that includes Tear duct surgery; Bunionectomy; [place] tooth extraction; Endometrial ablation; Hysterectomy; Esophagogastroduodenoscopy; and Cardiac catheterization. Social History She reports that she has quit smoking. Her smoking use included cigarettes. She started smoking about 7 months ago. She has never used smokeless tobacco. She reports current alcohol use. She reports that she does not use drugs. Family History Family History Problem Relation Name Age of Onset Other (cardiac arrest) Mother Deep vein thrombosis Father Heart attack Maternal Grandfather Medications Current Outpatient Medications on File Prior to Visit Medication Sig Dispense Refill ARIPiprazole (Abilify) 5 mg tablet Take 5 mg by mouth in the morning. FLUoxetine (PROzac) 20 mg capsule Take 20 mg by mouth in the morning. losartan (Cozaar) 100 mg tablet Take 100 mg by mouth in the morning. metoprolol succinate XL (Toprol-XL) 50 mg 24 hr tablet Take 1 tablet (50 mg) by mouth in the morning. Do not crush or chew. 90 tablet 3 semaglutide, weight loss, 0.25 mg/0.5 mL pen injector Inject 0.25 mg under the skin every 7 (seven) days. Vyvanse 40 mg capsule Take 40 mg by mouth in the morning. amLODIPine (Norvasc) 10 mg tablet Take 10 mg by mouth in the morning. (Patient not taking: Reported on 05/18/2025) cetirizine (ZyrTEC) 10 mg tablet Take 10 mg by mouth in the morning. (Patient not taking: Reported on 05/18/2025) DULoxetine (Cymbalta) [address] capsule Take 60 mg by mouth in the morning. metoprolol succinate XL (Toprol-XL) 50 mg 24 hr tablet Take 1 tablet (50 mg) by mouth in the morning. Do not crush or chew. 90 tablet 3 spironolactone (Aldactone) 50 mg tablet Take 1 tablet by mouth in the morning. No current facility-administered medications on file prior to visit. Allergies Penicillins and Latex Physical Exam VITAL SIGNS: BP (!) 134/92 (BP Location: Right arm, Patient Position: Sitting) Pulse 79 Ht 1.702 m (5' 7 ) Wt 119 kg (263 lb) SpO2 98% BMI 41.19 kg/m??? Constitutional: Well developed, Well nourished, No acute distress, Non-toxic appearance. HENT: Normocephalic, Atraumatic, Neck: Normal range of motion, No tenderness, Supple, No stridor. No cervical lymphadenopathy noted. Cardiovascular: Normal heart rate, Normal rhythm, No murmurs, No rubs, No gallops. Thorax & Lungs: Normal breath sounds, No respiratory distress, No wheezing, No chest tenderness to palpation. Abdomen: Bowel sounds normal, Soft, Nontender, No masses, No pulsatile masses. Skin: Warm, Dry, No erythema, No rash. Extremities: Intact distal pulses, No edema, No tenderness, No cyanosis, No clubbing. Neurologic: Alert & oriented x 3, no gross focal neurological deficits Psychiatric: Affect normal, Judgment normal, Mood normal. Labs: 12/04/2023 HbA1c 5.2% AST 29, ALT 65 Triglyceride 182, cholesterol 201, LDL 121, HDL 44 TSH 2.214 Last imaging Images: Echo 03/29/2024 Stress nuclear test 12/30/2023 EKG portion Impression: History of chest pain, she had normal stress nuclear test December 2023 Hypertension, on losartan, and Toprol-XL. Amlodipine and spironolactone were discon (more content not included)... [facility] 04-03-2025 History of Present illness Narrative Associated Problem(s): Palpitations No current sxs Is on b barry Images from the original note were not included. Boo Liu is a 40 y.o. female presents with chief complaint of Anxiety HPI: Here for 3 month fu: doing well overall: anxiety great, wants to keep on same meds, no side effects ADD: is doing well on vyvanse, no side effects noted Is getting intermittent episodes of dizziness, mostly with position changes, last few seconds, no other red flag sxs SUBJECTIVE: MEDICATIONS: Current Outpatient Medications Medication Instructions albuterol HFA 90 mcg/act inhaler 2 puffs, Inhalation, Every 6 hours PRN amLODIPine (NORVASC) 10 mg, Oral, Daily ARIPiprazole (ABILIFY) 5 mg, Oral, Daily cetirizine (ZYRTEC) 10 mg, Oral, Daily FLUoxetine (PROZAC) 20 mg, Oral, Daily lisdexamfetamine (VYVANSE) 40 mg, Oral, Every morning lisdexamfetamine (VYVANSE) 40 mg, Oral, Every morning lisdexamfetamine (VYVANSE) 40 mg, Oral, Daily losartan (COZAAR) 100 mg, Oral, Daily, Take 1 tablet by mouth in the morning. metoprolol succinate XL (TOPROL-XL) 50 mg, Daily RT SEMAGLUTIDE-WEIGHT MANAGEMENT SC Inject under the skin ALLERGIES: Allergies Allergen Reactions Amoxicillin GI intolerance and Hives Other Reaction(s): stomach ache Penicillins GI intolerance, Other, Hives, Nausea And Vomiting, Unknown and Rash Abdominal pain Latex Rash Other Reaction(s): rash REVIEW OF SYMPTOMS: Review of Systems Constitutional: Negative for appetite change, chills and fever. HENT: Negative for congestion, ear pain and sore throat. Eyes: Negative for pain, discharge, redness and visual disturbance. Respiratory: Negative for cough, shortness of breath and wheezing. Cardiovascular: Negative for chest pain, palpitations and leg swelling. Gastrointestinal: Negative for abdominal pain, blood in stool, constipation, diarrhea, nausea and vomiting. Genitourinary: Negative for difficulty urinating, dysuria and frequency. Musculoskeletal: Negative for arthralgias, back pain, joint swelling and myalgias. Skin: Negative for rash and wound. Neurological: Positive for dizziness. Negative for tremors, seizures, syncope and headaches. Psychiatric/Behavioral: Negative for behavioral problems, self-injury and suicidal ideas. The patient is not nervous/anxious. Hematological: Does not bruise/bleed easily. Endocrine: Negative for polydipsia, polyphagia and polyuria. Allergic/Immunologic: Negative for environmental allergies and food allergies. PAST MEDICAL HISTORY Past Medical History: Diagnosis Date Abnormal uterine bleeding (AUB) Acute diffuse otitis externa of both ears 10/01/2023 Allergic rhinitis 12/03/2023 Binge eating disorder Chronic left shoulder pain Current moderate episode of major depressive disorder, unspecified whether recurrent (HCC) 12/03/2023 Dysmenorrhea 01/05/2024 Elevated glucose 12/03/2023 Hidradenitis suppurativa 01/05/2024 History of PID Hypertension Hypokalemia Hypokalemia 10/01/2023 LGSIL on Pap smear of cervix 01/05/2024 Menorrhagia 01/05/2024 Metabolic syndrome 12/03/2023 Palpitations 01/05/2024 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 Skin abscess 12/03/2023 Thyroid enlargement Tobacco user 12/03/2023 Vitamin D deficiency 12/03/2023 Past Surgical History: Procedure Laterality Date BUNIONECTOMY 1996 also 2002 DILATION AND CURETTAGE OF UTERUS 02/26/2018 EGD 09/28/2020 Dr Thorpe/Kaya findings: superficial gastric ulcers, no hiatal hernia, normal duodenum ENDOMETRIAL ABLATION 03/04/2019 HEART CATH 12/17/2018 LAPAROSCOPY DIAGNOSTIC / BIOPSY / ASPIRATION / LYSIS 02/26/2018 ROBOTIC ASSISTED HYSTERECTOMY 03/30/2024 total hyst TEAR DUCT SURGERY 1989 TUBAL LIGATION 03/04/2019 WISDOM TOOTH EXTRACTION family history includes Hypertension in her father and mother; arterial artery thrombosis in her father. OBJECTIVE: Visit Vitals BP (!) 138/92 (BP Location: Left arm, Patient Position: Sitting, BP Cuff Size: Adult long) Pulse 82 Temp 98.5 F (Temporal) Resp 18 Wt 269 lb 12.8 oz SpO2 98% BMI 42.26 kg/m OB Status Having periods Smoking Status Former BSA 2.4 m Physical Exam Vitals and nursing note reviewed. Constitutional: General: She is not in acute distress. Appearance: Normal appearance. HENT: Head: Normocephalic and atraumatic. Right Ear: External ear normal. Left Ear: External ear normal. Nose: Nose normal. Mouth/Throat: Mouth: Mucous membranes are moist. Eyes: Extraocular Movements: Extraocular movements intact. Conjunctiva/sclera: Conjunctivae normal. Neck: Vascular: No carotid bruit. Cardiovascular: Rate and Rhythm: Normal rate and regular rhythm. Pulses: Normal pulses. Heart sounds: Normal heart sounds. Pulmonary: Effort: Pulmonary effort is normal. Breath sounds: Normal breath sounds. No wheezing or rhonchi. Abdominal: General: Bowel sounds are normal. There is no distension. Palpations: Abdomen is soft. There is no mass. Tenderness: There is no abdominal tenderness. Musculoskeletal: General: Normal range of motion. Cervical back: Normal range of motion and neck supple. Right lower leg: No edema. Left lower leg: No edema. Skin: General: Skin is warm and dry. Capillary Refill: Capillary refill takes 2 to 3 seconds. Findings: No rash. Neurological: General: No focal deficit present. Mental Status: She is alert and oriented to person, place, and time. Psychiatric: Mood and Affect: Mood normal. Behavior: Behavior normal. Thought Content: Thought content normal. Judgment: Judgment normal. ASSESSMENT AND PLAN: No follow-ups on file. Problem List Items Addressed This Visit Anxiety and depression Current meds: abilify and fluoxetine Essential hypertension Please check blood pressure daily and record DASH diet Limit caffeine Take medication as directed Contact office if chest pain, pressure, dizziness, shortness of breath, swelling legs Recommend slow position changes Current meds: amlodipine, losartan, cardiology started pt on metoprolol 12/06 Pt is going to record BP daily and prn dizzy spells, at this time her in office read is 130/90 I will not discontinue any dose at this time Morbid (severe) obesity due to excess calories ([facility] Discussed with patient their BMI (actual, verses recommended). We have also discussed lifestyle modifications: attempts to perform physical activity as chronic conditions allow, also to monitor dietary intake: increasing protein/fruits/veggies and lowering carb intake (unless contraindicated). Limit sodas, juices, and sugary drinks. Is currently taking semagluetide, continues to demonstrate weight loss 70 pounds over last 9 months!!! UQITA (obstructive sleep apnea) - Primary You have a diagnosis of obstructive sleep apnea. It is recommended that you wear your PAP device any time while in bed sleeping. Not using the PAP device can increase your risk of elevated/uncontrolled high blood pressure, atrial fibrillation, heart attack, stroke, or sudden . 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 Study was ordered by bariatric surgeon I did contact [facility]: [phone], spoke with Brooke, they faxed the info to [facility] on 08/15/24. We will call [facility]: [phone] to see where things are at I do suspicion this is part of her fatigue Still no response, pt is [facility] help her Binge eating disorder OARRS reviewed, sign med agreement Refill Vyvanse, and she also has ADHD symptoms which tends to be more of reason to continue vyvanse Fu in 3 months Med agreement signed: 10/25/24 Relevant Medications lisdexamfetamine (Vyvanse) 40 MG capsule lisdexamfetamine (Vyvanse) 40 MG capsule (Start on 05/03/2025) lisdexamfetamine (Vyvanse) 40 MG capsule (Start on 06/02/2025) Attention deficit hyperactivity disorder (ADHD), predominantly inattentive type Continue with Vyvanse OARRS reviewed Med agreement: 10/25/24 Relevant Medications lisdexamfetamine (Vyvanse) 40 MG capsule lisdexamfetamine (Vyvanse) 40 MG capsule (Start on 05/03/2025) lisdexamfetamine (Vyvanse) 40 MG capsule (Start on 06/02/2025) Palpitations No current sxs Is on b barry RESOLVED: Major depressive disorder, single episode, moderate (HCC) Current med Pt has been getting dizzy for a few weeks now pt would like to know if her BP medication needs cut or changed. Associated Problem(s): Major depressive disorder, single episode, moderate (HCC) (Resolved 04/03/2025) Current med Associated Problem(s): Binge eating disorder OAYOVANA reviewed, sign med agreement Refill Vyvanse, and she also has ADHD symptoms which tends to be more of reason to continue vyvanse Fu in 3 months Med agreement signed: 10/25/24 Associated Problem(s): Attention deficit hyperactivity disorder (ADHD), predominantly inattentive type Continue with Vyvanse LAVELLE reviewed Med agreement: 10/25/24 Associated Problem(s): Anxiety and depression Current meds: abilify and fluoxetine Associated Problem(s): Morbid (severe) obesity due to excess calories ([facility]) Discussed with patient their BMI (actual, verses recommended). We have also discussed lifestyle modifications: attempts to perform physical activity as chronic conditions allow, also to monitor dietary intake: increasing protein/fruits/veggies and lowering carb intake (unless contraindicated). Limit sodas, juices, and sugary drinks. Is currently taking semagluetide, continues to demonstrate weight loss 70 pounds over last 9 months!!! Associated Problem(s): Essential hypertension Please check blood pressure daily and record DASH diet Limit caffeine Take medication as directed Contact office if chest pain, pressure, dizziness, shortness of breath, swelling legs Recommend slow position changes Current meds: amlodipine, losartan, cardiology started pt on metoprolol 12/06 Pt is going to record BP daily and prn dizzy spells, at this time her in office read is 130/90 I will not discontinue any dose at this time Associated Problem(s): QUITA (obstructive sleep apnea) You have a diagnosis of obstructive sleep apnea. It is recommended that you wear your PAP device any time while in bed sleeping. Not using the PAP device can increase your risk of elevated/uncontrolled high blood pressure, atrial fibrillation, heart attack, stroke, or sudden . 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 Study was ordered by bariatric surgeon I did contact [facility]: [phone], spoke with Brooke, they faxed the info to [facility] on 08/15/24. We will call [facility]: [phone] to see where things are at I do suspicion this is part of her fatigue Still no response, pt is [facility] help her documented in this encounter [facility] 04-03-2025 Instructions Tamiko Hernandez NP - 04/03/2025 1:00 PM EDT Check with [facility] about CPAP Check blood pressure daily and record and check during dizzy spells as well and let me know if those dizzy spells the BP is less than 110/70 documented in this encounter [facility] 11-23-2024 Note Cardiology Clinic No te HPI: Boo Liu is a 39 y.o. female being seen for 6 mo follow up atypical chest pain and hypertension. She had routine labs with lipid panel in May 2024. She has lost 39# since last apt, and has decided to hold off on the gastric sleeve surgery. Chest pain has resolved since she quit smoking on 10/12/2024. She hasn't been taking metoprolol because she says there were no refills on it. Patient adamantly denies any cardiac complaints or concerns. Patient denies any chest pain or shortness of breath. Patient denies any lower extremity edema, orthopnea, or proximal nocturnal dyspnea. No near-syncope or syncope. No dizziness or lightheadedness. Cardiology ROS: Review of Systems Constitutional: Positive for weight loss (39# since April 2024). Cardiovascular: Positive for palpitations. Neurological: Positive for light-headedness. All other systems reviewed and are negative. Past Medical History She has a past medical history of Abnormal ECG, Abnormal stress test, Atypical chest pain, and Hypertension. Surgical History She has a past surgical history that includes Tear duct surgery; Bunionectomy; [place] tooth extraction; Endometrial ablation; Hysterectomy; Esophagogastroduodenoscopy; and Cardiac catheterization. Social History She reports that she has quit smoking. Her smoking use included cigarettes. She has never used smokeless tobacco. She reports that she does not currently use alcohol. She reports that she does not use drugs. Family History Family History Problem Relation Name Age of Onset Other (cardiac arrest) Mother Deep vein thrombosis Father Heart attack Maternal Grandfather Medications Current Outpatient Medications on File Prior to Visit Medication Sig Dispense Refill amLODIPine (Norvasc) 10 mg tablet Take 10 mg by mouth in the morning. ARIPiprazole (Abilify) 5 mg tablet Take 5 mg by mouth in the morning. cetirizine (ZyrTEC) 10 mg tablet Take 10 mg by mouth in the morning. DULoxetine (Cymbalta) [address] capsule Take 60 mg by mouth in the morning. losartan (Cozaar) 100 mg tablet Take 100 mg by mouth in the morning. metoprolol succinate XL (Toprol-XL) 50 mg 24 hr tablet Take 1 tablet (50 mg) by mouth in the morning. Do not crush or chew. 90 tablet 3 spironolactone (Aldactone) 50 mg tablet Take 1 tablet by mouth in the morning. Vyvanse 40 mg capsule Take 40 mg by mouth in the morning. [DISCONTINUED] cholecalciferol (D3-5) 5,000 Units tablet Take 5,000 Units by mouth in the morning. No current facility-administered medications on file prior to visit. Allergies Penicillins and Latex Physical Exam VITAL SIGNS: Ht 1.702 m (5' 7 ) BMI 52.31 kg/m??? Constitutional: Well developed, Well nourished, No [...] Judgment normal, Mood normal. Impression: -Atypical chest pain, resolved, no ischemia on stress test -Abnormal stress test, as per report (single lead, no reversible ischemia -HTN Plan: -Toprol 50 mg was added during last visit. 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 Instructed her to go back on it, given blood pressure is elevated. -Continue Amlodipine 10 mg daily and Losartain 100 mg daily. -Patient instructed to check daily blood pressure at home 2 hours after taking medication. Patient is instructed to maintain daily blood pressure log. Patient is to contact cardiology if blood pressures above discuss target range. Patient voices understanding. -Patient without evidence of ACS or decompensated heart failure. Patient denies any cardiac complaints or concerns. No chest pain or shortness of breath. No lower extremity edema, orthopnea, or PND. Patient is active and can complete >4 METS of activity without any cardiac symptoms. Echo demonstrated normal EF and no wall motion abnormality. Stress test without evidence of reversible ischemia. Patient is moderate risk for surgery and can proceed without any additional cardiac testing at the present time. -Optimize medical management -Aggressive risk fac (more content not included)... [facility] 10-25-2024 History of Present illness Narrative Associated Problem(s): Acute diffuse otitis externa of both ears Ear drops, avoid excessive water in ears Fu if not better Anxiety is worse-very emotional and tearful No longer taking Cymbalta-pt was sick for 3 days and was unable to take it however she states she was going thru with draws and does not want to take a medication that makes her feel that way but she wants to be on something. Pt is on semaglutide for the past 14 weeks now Images from the original note were not included. Boo Liu is a 39 y.o. female presents with chief complaint of ADHD HPI: ADHD This is a chronic problem. The current episode started more than 1 year ago. The problem occurs daily. The problem has been unchanged. Associated symptoms include chest pain. Pertinent negatives include no abdominal pain, arthralgias, chills, congestion, coughing, fever, headaches, joint swelling, myalgias, nausea, neck pain, rash, sore throat or vomiting. Nothing aggravates the symptoms. Treatments tried: Vyvanse. The treatment provided moderate relief. Hypertension This is a chronic problem. The current episode started more than 1 year ago. The problem is unchanged. The problem is controlled. Associated symptoms include anxiety, chest pain, palpitations and peripheral edema. Pertinent negatives include no headaches, neck pain or shortness of breath. There are no associated agents to hypertension. Risk factors for coronary artery disease include dyslipidemia and obesity. Past treatments include calcium channel blockers and angiotensin blockers. The current treatment provides significant improvement. There are no compliance problems. There is no history of kidney disease, CAD/SD or heart failure. Depression Visit Type: follow-up Patient presents with the following symptoms: anhedonia, chest pain, depressed mood, excessive worry, fatigue, insomnia, irritability, nervousness/anxiety and palpitations. Patient is not experiencing: shortness of breath, suicidal ideas, suicidal planning and thoughts of . Frequency of symptoms: constantly Severity: moderate Sleep per night: 5 hours Sleep quality: fair Compliance with medications: 76-100% Anxiety Presents for follow-up visit. Symptoms include chest pain, depressed mood, excessive worry, insomnia, irritability, nervous/anxious behavior and palpitations. Patient reports no dizziness, nausea, shortness of breath or suicidal ideas. Symptoms occur most days. The severity of symptoms is severe. The patient sleeps 5 hours per night. The quality of sleep is fair. SUBJECTIVE: MEDICATIONS: Current Outpatient Medications Medication Instructions albuterol HFA 90 mcg/act inhaler 2 puffs, Inhalation, Every 6 hours PRN amLODIPine (NORVASC) 10 mg, Oral, Daily ARIPiprazole (ABILIFY) 5 mg, Oral, Daily cetirizine (ZYRTEC) 10 mg, Oral, Daily FLUoxetine (PROZAC) 20 mg, Oral, Daily lisdexamfetamine (VYVANSE) 40 mg, Oral, Every morning [START ON 11/24/2024] lisdexamfetamine (VYVANSE) 40 mg, Oral, Every morning [START ON 12/24/2024] lisdexamfetamine (VYVANSE) 40 mg, Oral, Every morning losartan (COZAAR) 100 mg, Oral, Daily, Take 1 tablet by mouth in the morning. ofloxacin (Floxin) 0.3 % otic solution 10 drops, Each Ear, Daily SEMAGLUTIDE-WEIGHT MANAGEMENT SC Inject under the skin ALLERGIES: Allergies Allergen Reactions Amoxicillin GI intolerance and Hives Other Reaction(s): stomach ache Penicillins GI intolerance, Other, Hives, Nausea And Vomiting, Unknown and Rash Abdominal pain Latex Rash Other Reaction(s): rash REVIEW OF SYMPTOMS: Review of Systems Constitutional: Positive for irritability. Negative for appetite change, chills and fever. HENT: Negative for congestion, ear pain and sore throat. Eyes: Negative for pain, discharge, redness and visual disturbance. Respiratory: Negative for cough, shortness of breath and wheezing. Cardiovascular: Positive for chest pain and palpitations. Negative for leg swelling. Gastrointestinal: Negative for abdominal pain, blood in stool, constipation, diarrhea, nausea and vomiting. Genitourinary: Negative for difficulty urinating, dysuria and frequency. Musculoskeletal: Negative for arthralgias, back pain, joint swelling, myalgias and neck pain. Skin: Negative for rash and wound. Neurological: Negative for dizziness, tremors, seizures, syncope and headaches. Psychiatric/Behavioral: Positive for depression. Negative for behavioral problems, self-injury and suicidal ideas. The patient is nervous/anxious and has insomnia. Depression Hematological: Does not bruise/bleed easily. Endocrine: Negative for polydipsia, polyphagia and polyuria. Allergic/Immunologic: Negative for environmental allergies and food allergies. PAST MEDICAL HISTORY Past Medical History: Diagnosis Date Abnormal uterine bleeding (AUB) Acute diffuse otitis externa of both ears 10/01/2023 Allergic rhinitis 12/03/2023 Binge eating disorder Chronic left shoulder pain Current moderate episode of major depressive disorder, unspecified whether recurrent (HCC) ([facility]) 12/03/2023 Dysmenorrhea 01/05/2024 Elevated glucose 12/03/2023 Hidradenitis suppurativa 01/05/2024 History of PID Hypertension ([facility]) Hypokalemia Hypokalemia 10/01/2023 LGSIL on Pap smear of cervix 01/05/2024 Menorrhagia 01/05/2024 Metabolic syndrome 12/03/2023 Palpitations 01/05/2024 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 Skin abscess 12/03/2023 Thyroid enlargement (CMS/HCC) Tobacco user 12/03/2023 Vitamin D deficiency 12/03/2023 Past Surgical History: Procedure Laterality Date BUNIONECTOMY 1996 also 2002 DILATION AND CURETTAGE OF UTERUS 02/26/2018 EGD 09/28/2020 Dr Thorpe/Kaya findings: superficial gastric ulcers, no hiatal hernia, normal duodenum ENDOMETRIAL ABLATION 03/04/2019 HEART CATH 12/17/2018 LAPAROSCOPY DIAGNOSTIC / BIOPSY / ASPIRATION / LYSIS 02/26/2018 ROBOTIC ASSISTED HYSTERECTOMY 03/30/2024 total hyst TEAR DUCT SURGERY 1988 TUBAL LIGATION 03/04/2019 WISDOM TOOTH EXTRACTION family history includes Hypertension in her father and mother; arterial artery thrombosis in her father. OBJECTIVE: Visit Vitals BP 118/88 (BP Location: Left arm, Patient Position: Sitting, BP Cuff Size: Large adult) Pulse 63 Temp 98.5 F (Temporal) Resp 18 Ht 5' 7 Wt 301 lb 6.4 oz SpO2 97% BMI 47.21 kg/m OB Status Having periods Smoking Status Former BSA 2.55 m Physical Exam Vitals and nursing note reviewed. Constitutional: General: She is not in acute distress. Appearance: Normal appearance. HENT: Head: Normocephalic and atraumatic. Right Ear: Tympanic membrane and external ear normal. Left Ear: Tympanic membrane and external ear normal. Ears: Comments: Bilat canals with debris, white, flaky Nose: Nose normal. Mouth/Throat: Mouth: Mucous membranes are moist. Eyes: Extraocular Movements: Extraocular movements intact. Conjunctiva/sclera: Conjunctivae normal. Neck: Vascular: No carotid bruit. Cardiovascular: Rate and Rhythm: Normal rate and regular rhythm. Pulses: Normal pulses. Heart sounds: Normal heart sounds. Pulmonary: Effort: Pulmonary effort is normal. Breath sounds: Normal breath sounds. No wheezing or rales. Abdominal: General: Bowel sounds are normal. There is no distension. Palpations: Abdomen is soft. There is no mass. Tenderness: There is no abdominal tenderness. Musculoskeletal: General: Normal range of motion. Cervical back: Normal range of motion and neck supple. Right lower leg: No edema. Left lower leg: No edema. Skin: General: Skin is warm and dry. Capillary Refill: Capillary refill takes 2 to 3 seconds. Findings: No rash. Neurological: General: No focal deficit present. Mental Status: She is alert and oriented to person, place, and time. Psychiatric: Mood and Affect: Mood normal. Thought Content: Thought content normal. Judgment: Judgment normal. Comments: tearful ASSESSMENT AND PLAN: Follow up in about 4 weeks (around 11/22/2024) for Recheck. Problem List Items Addressed This Visit Anxiety and depression (CMS/HCC) - Primary Stopped her duloxetine, sxs worsened does not like how the duloxetine makes her feel Is still taking abilify, would like to trial possible fluoxetine Fluoxetine at 20mg daily Take medication only as directed. This medication will take approximately 4-6 weeks to become effective. If any suicidal thoughts, thoughts of hurting others, or hallucinations contact the office or proceed to the Emergency Room for mental health evaluation. Medication may cause dry mouth, dizziness, and in some cases worsening in depression symptoms. Please contact the office if these occur. PHQ 9 12, PAZ 7 17 Relevant Medications FLUoxetine (PROzac) 20 MG capsule ARIPiprazole (Abilify) 5 MG tablet Essential hypertension (CMS/HCC) Please check blood pressure daily and record DASH diet Limit caffeine Take medication as directed Contact office if chest pain, pressure, dizziness, shortness of breath, swelling legs Recommend slow position changes Current meds: amlodipine, losartan, Relevant Medications amLODIPine (Norvasc) 10 MG tablet losartan (Cozaar) 100 MG tablet GERD without esophagitis Recommendations: freq small meals, nothing to eat or drink at least 2 hours prior to bed, limit caffeine, alcohol, as well as spicy foods Meds to limit or avoid if possible: NSAIDS Elevate HOB if possible No current meds Morbid (severe) obesity due to excess calories (CMS/HCC) Discussed with patient their BMI (actual, verses recommended). We have also discussed lifestyle modifications: attempts to perform physical activity as chronic conditions allow, also to monitor dietary intake: increasing protein/fruits/veggies and lowering carb intake (unless contraindicated). Limit sodas, juices, and sugary drinks. Is currently taking semagluetide at this time, has loss over over 40 pounds since her last visit QUITA (obstructive sleep apnea) You have a diagnosis of obstructive sleep apnea. It is recommended that you wear your PAP device any time while in bed sleeping. Not using the PAP device can increase your risk of elevated/uncontrolled high blood pressure, atrial fibrillation, heart attack, stroke, or sudden . Compliance: no Hours used:NA Feeling better: NA Binge eating disorder OARRS reviewed, sign med agreement Refill Vyvanse, and she also has ADHD symptoms which tends to be more of reason to continue vyvanse Fu in 3 months Allergic rhinitis Relevant Medications cetirizine (ZyrTEC) 10 MG tablet Attention deficit hyperactivity disorder (ADHD), predominantly inattentive type (CMS/HCC) Continue with Vyvanse OARRS reviewed Relevant Medications lisdexamfetamine (Vyvanse) 40 MG capsule lisdexamfetamine (Vyvanse) 40 MG capsule (Start on 11/24/2024) lisdexamfetamine (Vyvanse) 40 MG capsule (Start on 12/24/2024) Bilateral lower extremity edema No longer taking aldactone, with weight loss swelling is better Limit sodium intake, elevated legs as much as possible Major depressive disorder, single episode, moderate (HCC) (CMS/HCC) Body mass index (BMI) 50.0-59.9, adult (CMS/HCC) Acute diffuse otitis externa of both ears Ear drops, avoid excessive water in ears Fu if not better Relevant Medications ofloxacin (Floxin) 0.3 % otic solution Associated Problem(s): Binge eating disorder OARRS reviewed, sign med agreement Refill Vyvanse, and she also has ADHD symptoms which tends to be more of reason to continue vyvanse Fu in 3 months Associated Problem(s): Attention deficit hyperactivity disorder (ADHD), predominantly inattentive type (CMS/HCC) Continue with Vyvanse OARRS reviewed Associated Problem(s): Anxiety and depression (CMS/HCC) Stopped her duloxetine, sxs worsened does not like how the duloxetine makes her feel Is still taking abilify, would like to trial possible fluoxetine Fluoxetine at 20mg daily Take medication only as directed. This medication will take approximately 4-6 weeks to become effective. If any suicidal thoughts, thoughts of hurting others, or hallucinations contact the office or proceed to the Emergency Room for mental health evaluation. Medication may cause dry mouth, dizziness, and in some cases worsening in depression symptoms. Please contact the office if these occur. PHQ 9 12, PAZ 7 17 Associated Problem(s): Morbid (severe) obesity due to excess calories (CMS/HCC) Discussed with patient their BMI (actual, verses recommended). We have also discussed lifestyle modifications: attempts to perform physical activity as chronic conditions allow, also to monitor dietary intake: increasing protein/fruits/veggies and lowering carb intake (unless contraindicated). Limit sodas, juices, and sugary drinks. Is currently taking semagluetide at this time, has loss over over 40 pounds since her last visit Associated Problem(s): Bilateral lower extremity edema No longer taking aldactone, with weight loss swelling is better Limit sodium intake, elevated legs as much as possible Associated Problem(s): GERD without esophagitis Recommendations: freq small meals, nothing to eat or drink at least 2 hours prior to bed, limit caffeine, alcohol, as well as spicy foods Meds to limit or avoid if possible: NSAIDS Elevate HOB if possible No current meds Associated Problem(s): Essential hypertension (CMS/HCC) Please check blood pressure daily and record DASH diet Limit caffeine Take medication as directed Contact office if chest pain, pressure, dizziness, shortness of breath, swelling legs Recommend slow position changes Current meds: amlodipine, losartan, Associated Problem(s): QUITA (obstructive sleep apnea) You have a diagnosis of obstructive sleep apnea. It is recommended that you wear your PAP device any time while in bed sleeping. Not using the PAP device can increase your risk of elevated/uncontrolled high blood pressure, atrial fibrillation, heart attack, stroke, or sudden . Compliance: no Hours used:NA Feeling better: NA documented in this encounter [facility] 10-25-2024 Instructions Tamiko Hernandez NP - 10/25/2024 8:40 AM EST Start fluoxetine at 20mg daily, cont abilify Take medication only as directed. This medication will take approximately 4-6 weeks to become effective. If any suicidal thoughts, thoughts of hurting others, or hallucinations contact the office or proceed to the Emergency Room for mental health evaluation. Medication may cause dry mouth, dizziness, and in some cases worsening in depression symptoms. Please contact the office if these occur. Ear drops sent in, if not better contact office documented in this encounter [facility] 07-25-2024 History of Present illness Narrative Associated Problem(s): URI, acute Had neg COVID test 48 hours into symptoms Will treat with atb and inhaler, Fever: peaked yesterday, fluids, rest, tylenol/motrin prn ?covid with neg test?? Fu if not better Associated Problem(s): Attention deficit hyperactivity disorder (ADHD), predominantly inattentive type (CMS/HCC) Continue with Vyvanse OARRS reviewed Associated Problem(s): Bilateral lower extremity edema Continue aldactone Associated Problem(s): Essential hypertension (CMS/HCC) At goal, no med dose changes Pt started getting sick on , She has cough, stuffy nose, body aches, fevers 103, pt is taking aleve, ear pain. Pt tested neg for covid on sat Images from the original note were not included. Boo Liu is a 39 y.o. female presents with chief complaint of No chief complaint on file. HPI: Hypertension This is a chronic problem. The current episode started more than 1 year ago. The problem is unchanged. The problem is controlled. Associated symptoms include peripheral edema. Pertinent negatives include no anxiety, blurred vision, chest pain, headaches, neck pain, palpitations, shortness of breath or sweats. There are no associated agents to hypertension. Risk factors for coronary artery disease include diabetes mellitus and obesity. Past treatments include diuretics, beta blockers, calcium channel blockers and angiotensin blockers. The current treatment provides significant improvement. There are no compliance problems. There is no history of CAD/SD, heart failure or left ventricular hypertrophy. Cough This is a new problem. The current episode started in the past 7 days. The problem has been waxing and waning. The problem occurs constantly. The cough is Productive of sputum. Associated symptoms include ear pain, a fever, myalgias and wheezing (occ). Pertinent negatives include no chest pain, chills, ear congestion, eye redness, headaches, heartburn, hemoptysis, nasal congestion, postnasal drip, rash, rhinorrhea, sore throat, shortness of breath, sweats or weight loss. Nothing aggravates the symptoms. There is no history of environmental allergies. SUBJECTIVE: MEDICATIONS: Current Outpatient Medications Medication Instructions albuterol HFA 90 mcg/act inhaler 2 puffs, Inhalation, Every 6 hours PRN amLODIPine (NORVASC) 10 mg, Oral, Daily ARIPiprazole (ABILIFY) 5 mg, Oral, Daily azithromycin (Zithromax) 250 MG tablet 2 pills day #1, 1 pill day #2-#5 cetirizine (ZYRTEC) 10 mg, Oral, Daily cholecalciferol (D3-5) 5,000 Units, Oral, Daily DULoxetine (CYMBALTA) 60 mg, Oral, Daily, Do not crush or chew. lisdexamfetamine (VYVANSE) 40 mg, Oral, Every morning [START ON 08/24/2024] lisdexamfetamine (VYVANSE) 40 mg, Oral, Every morning [START ON 09/23/2024] lisdexamfetamine (VYVANSE) 40 mg, Oral, Every morning losartan (COZAAR) 100 mg, Oral, Daily, Take 1 tablet by mouth in the morning. metoprolol succinate XL (TOPROL-XL) 50 mg, Oral, Daily spironolactone (ALDACTONE) 50 mg, Oral, Daily ALLERGIES: Allergies Allergen Reactions Amoxicillin GI intolerance and Hives Other Reaction(s): stomach ache Penicillins GI intolerance, Other, Hives, Nausea And Vomiting, Unknown and Rash Abdominal pain Latex Rash Other Reaction(s): rash REVIEW OF SYMPTOMS: Review of Systems Constitutional: Positive for fever. Negative for appetite change, chills and weight loss. HENT: Positive for ear pain. Negative for congestion, postnasal drip, rhinorrhea and sore throat. Eyes: Negative for blurred vision, pain, discharge, redness and visual disturbance. Respiratory: Positive for cough and wheezing (occ). Negative for hemoptysis and shortness of breath. Cardiovascular: Negative for chest pain, palpitations and leg swelling. Gastrointestinal: Negative for abdominal pain, blood in stool, constipation, diarrhea, heartburn, nausea and vomiting. Genitourinary: Negative for difficulty urinating, dysuria and frequency. Musculoskeletal: Positive for myalgias. Negative for arthralgias, back pain, joint swelling and neck pain. Skin: Negative for rash and wound. Neurological: Negative for dizziness, tremors, seizures, syncope and headaches. Psychiatric/Behavioral: Negative for behavioral problems, self-injury and suicidal ideas. The patient is nervous/anxious. Depression Hematological: Does not bruise/bleed easily. Endocrine: Negative for polydipsia, polyphagia and polyuria. Allergic/Immunologic: Negative for environmental allergies and food allergies. PAST MEDICAL HISTORY Past Medical History: Diagnosis Date Abnormal uterine bleeding (AUB) Acute diffuse otitis externa of both ears 10/01/2023 Allergic rhinitis 12/03/2023 Binge eating disorder Chronic left shoulder pain Current moderate episode of major depressive disorder, unspecified whether recurrent (HCC) ([facility]) 12/03/2023 Dysmenorrhea 01/05/2024 Elevated glucose 12/03/2023 Hidradenitis suppurativa 01/05/2024 History of PID Hypertension ([facility]) Hypokalemia Hypokalemia 10/01/2023 LGSIL on Pap smear of cervix 01/05/2024 Menorrhagia 01/05/2024 Metabolic syndrome 12/03/2023 Palpitations 01/05/2024 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 Skin abscess 12/03/2023 Thyroid enlargement ([facility]) Tobacco user 12/03/2023 Vitamin D deficiency 12/03/2023 Past Surgical History: Procedure Laterality Date BUNIONECTOMY 1996 also 2002 DILATION AND CURETTAGE OF UTERUS 02/26/2018 EGD 09/28/2020 Dr Thorpe/Kaya findings: superficial gastric ulcers, no hiatal hernia, normal duodenum ENDOMETRIAL ABLATION 03/04/2019 HEART CATH 12/17/2018 LAPAROSCOPY DIAGNOSTIC / BIOPSY / ASPIRATION / LYSIS 02/26/2018 ROBOTIC ASSISTED HYSTERECTOMY 03/30/2024 total hyst TEAR DUCT SURGERY 1989 TUBAL LIGATION 03/04/2019 WISDOM TOOTH EXTRACTION family history includes Hypertension in her father and mother; arterial artery thrombosis in her father. OBJECTIVE: Visit Vitals BP (!) 134/98 (BP Location: Left arm, Patient Position: Sitting, BP Cuff Size: Large adult long) Pulse 90 Temp 99 F (Temporal) Resp 19 Ht 5' 7 Wt 331 lb SpO2 98% BMI 51.84 kg/m OB Status Having periods Smoking Status Former BSA 2.66 m Physical Exam Vitals and nursing note reviewed. Constitutional: General: She is not in acute distress. Appearance: Normal appearance. She is obese. She is not ill-appearing. HENT: Head: Normocephalic and atraumatic. Right Ear: Tympanic membrane, ear canal and external ear normal. Left Ear: Tympanic membrane, ear canal and external ear normal. Nose: Nose normal. No congestion or rhinorrhea. Mouth/Throat: Mouth: Mucous membranes are moist. Pharynx: No oropharyngeal exudate. Eyes: Extraocular Movements: Extraocular movements intact. Conjunctiva/sclera: Conjunctivae normal. Cardiovascular: Rate and Rhythm: Normal rate and regular rhythm. Pulses: Normal pulses. Heart sounds: Normal heart sounds. Pulmonary: Effort: Pulmonary effort is normal. Breath sounds: No wheezing. Comments: Diminished, few coarse sounds, no definite wheeze/rales/rhonchi Abdominal: General: Bowel sounds are normal. There is no distension. Palpations: Abdomen is soft. There is no mass. Tenderness: There is no abdominal tenderness. Musculoskeletal: General: Normal range of motion. Cervical back: Normal range of motion and neck supple. Right lower leg: No edema. Left lower leg: No edema. Lymphadenopathy: Cervical: No cervical adenopathy. Skin: General: Skin is warm and dry. Capillary Refill: Capillary refill takes 2 to 3 seconds. Findings: No rash. Neurological: General: No focal deficit present. Mental Status: She is alert and oriented to person, place, and time. Psychiatric: Mood and Affect: Mood normal. Behavior: Behavior normal. Thought Content: Thought content normal. Judgment: Judgment normal. ASSESSMENT AND PLAN: No follow-ups on file. Problem List Items Addressed This Visit Anxiety and depression (CMS/HCC) Relevant Medications ARIPiprazole (Abilify) 5 MG tablet DULoxetine (Cymbalta) [address] capsule Essential hypertension (CMS/HCC) At goal, no med dose changes Relevant Medications amLODIPine (Norvasc) 10 MG tablet metoprolol succinate XL (Toprol-XL) 50 MG 24 hr tablet losartan (Cozaar) 100 MG tablet Fibromyalgia - Primary Morbid obesity (CMS/HCC) Binge eating disorder Relevant Medications lisdexamfetamine (Vyvanse) 40 MG capsule lisdexamfetamine (Vyvanse) 40 MG capsule (Start on 08/24/2024) lisdexamfetamine (Vyvanse) 40 MG capsule (Start on 09/23/2024) Allergic rhinitis Relevant Medications cetirizine (ZyrTEC) 10 MG tablet Attention deficit hyperactivity disorder (ADHD), predominantly inattentive type (CMS/HCC) Continue with Vyvanse OARRS reviewed Relevant Medications lisdexamfetamine (Vyvanse) 40 MG capsule lisdexamfetamine (Vyvanse) 40 MG capsule (Start on 08/24/2024) lisdexamfetamine (Vyvanse) 40 MG capsule (Start on 09/23/2024) Bilateral lower extremity edema Continue aldactone Relevant Medications spironolactone (Aldactone) 50 MG tablet URI, acute Had neg COVID test 48 hours into symptoms Will treat with atb and inhaler, Fever: peaked yesterday, fluids, rest, tylenol/motrin prn ?covid with neg test?? Fu if not better Relevant Medications azithromycin (Zithromax) 250 MG tablet albuterol HFA 90 mcg/act inhaler documented in this encounter [facility] 07-05-2024 History of Present illness Narrative Images from the original note were not included. NAME: Boo Liu : 1985 HISTORY OF PRESENT ILLNESS: Boo Liu is an 39 y.o. @ female. LT ankle/foot injury x 3 days, 07/02/24, tripped over a baby seat. [place] like foot bent back. Went to [facility] in [place] 07/04, had XR. Placed in CAM boot and advised to be NWB with crutches. Walking partial WB in CAM boot. Was unable to use crutches. Pain top of foot and lateral ankle. Taking aleve. Using ice. Admits swelling. Minimal N/T, intermittent. Wakes pt at HS. Pain is 4/10 today. Hx bunion sx. Prior tx: [facility] in [place] 07/04/24, XR (pushed through pacs), CAM boot, crutches, aleve, ice PAST MEDICAL HISTORY: Past Medical History: Diagnosis Date Abnormal uterine bleeding (AUB) Acute diffuse otitis externa of both ears 10/01/2023 Allergic rhinitis 12/03/2023 Binge eating disorder ([facility]/HCC) Chronic left shoulder pain Current moderate episode of major depressive disorder, unspecified whether recurrent (HCC) (CMS/HCC) 12/03/2023 Dysmenorrhea 01/05/2024 Elevated glucose 12/03/2023 Hidradenitis suppurativa 01/05/2024 History of PID Hypertension ([facility]/HCC) Hypokalemia Hypokalemia 10/01/2023 LGSIL on Pap smear of cervix 01/05/2024 Menorrhagia 01/05/2024 Metabolic syndrome 12/03/2023 Palpitations 01/05/2024 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 Skin abscess 12/03/2023 Thyroid enlargement (CMS/HCC) Tobacco user 12/03/2023 Vitamin D deficiency 12/03/2023 PAST SURGICAL HISTORY: Past Surgical History: Procedure Laterality Date BUNIONECTOMY 1996 also 2002 DILATION AND CURETTAGE OF UTERUS 02/26/2018 EGD 09/28/2020 Dr Thorpe/Kaya findings: superficial gastric ulcers, no hiatal hernia, normal duodenum ENDOMETRIAL ABLATION 03/04/2019 HEART CATH 12/17/2018 LAPAROSCOPY DIAGNOSTIC / BIOPSY / ASPIRATION / LYSIS 02/26/2018 ROBOTIC ASSISTED HYSTERECTOMY 03/30/2024 total hyst TEAR DUCT SURGERY 1989 TUBAL LIGATION 03/04/2019 WISDOM TOOTH EXTRACTION ALLERGIES: Allergies Allergen Reactions Amoxicillin GI intolerance and Hives Other Reaction(s): stomach ache Penicillins GI intolerance, Other, Hives, Nausea And Vomiting, Unknown and Rash Abdominal pain Latex Rash Other Reaction(s): rash HOME MEDICATIONS: Current Outpatient Medications Medication Instructions amLODIPine (NORVASC) 10 mg, Oral, Daily ARIPiprazole (ABILIFY) 5 mg, Oral, Daily cetirizine (ZYRTEC) 10 mg, Oral, Daily cholecalciferol (D3-5) 5,000 Units, Oral, Daily DULoxetine (CYMBALTA) 60 mg, Oral, Daily, Do not crush or chew. lisdexamfetamine (VYVANSE) 40 mg, Oral, Every morning lisdexamfetamine (VYVANSE) 40 mg, Oral, Every morning lisdexamfetamine (VYVANSE) 40 mg, Oral, Every morning losartan (COZAAR) 100 mg, Oral, Daily, Take 1 tablet by mouth in the morning. metoprolol succinate XL (TOPROL-XL) 50 mg, Oral, Daily RT spironolactone (ALDACTONE) 50 mg, Oral, Daily Vitals: Body mass index is 53.25 kg/m . PHYSICAL EXAM: Right Ankle Exam Tenderness The patient is experiencing tenderness in the deltoid and medial malleolus. Swelling: moderate Range of Motion Dorsiflexion: 10 Right ankle eversion: pain with testing. Right ankle inversion: no pain. Muscle Strength Dorsiflexion: 4/5 Plantar flexion: 4/5 Tests Anterior drawer: negative Varus tilt: negative Other Sensation: normal Pulse: present Comments: Presents in CAM boot IMAGING: I reviewed xray from [facility] in [place] which showed avulsion of medial malleolus. Procedures ASSESSMENT: ICD-10-CM 1. Sprain of deltoid ligament of right ankle, initial encounter S93.421A 2. Acute right ankle pain M25.571 PLAN: I reviewed xray findings with the patient and discussed treatment options, answered questions. There is a small avulsion of the medial malleolus. I recommend patient continue with CAM boot but may be WBAT. She will follow up in 3-4 weeks with xray. Questions answered in laymen terms at the bedside. The diagnosis, home exercise plan and any ongoing restrictions/ recommendations reviewed. If unable to be reached in office, I recommend evaluation at nearest Emergency Room if any symptoms worsened or new symptoms develop for requiring urgent evaluation. FREDY Thomas documented in this encounter [facility] 06-22-2024 History of Present illness Narrative Pt no called no showed appointment documented in this encounter [facility] 12-04-2022 Evaluation note Encounter Date Diagnosis Assessment Notes Nov, Sore throat (ICD-10 - J02.9) Nov, Strep pharyngitis (ICD-10 - J02.0) Symptoms presented in office today indicate Strep Throat. Take medications as directed. Saltwater gargles may help with pain and disrupts bacteria and viral infections. Continue tylenol/ibu for general discomfort. Encourage fluids. Symptoms should improve within the next 4-7 days. [facility] 10-26-2022 Evaluation note* Encounter Date Diagnosis Assessment Notes Treatment Notes Treatment Clinical Notes Jul, Acute otitis externa of both ears, unspecified type (ICD-10 - H60.503) Otitis externa home care material was printed Drink plenty fluids, get plenty of rest. Use eardrops as prescribed. Take Tylenol or Motrin for aches pains or fevers. Follow-up with your family physician if no improvement in 2 to 3 days [facility] Other 06-05-2022 Evaluation note* Encounter Date Diagnosis Assessment Notes Treatment Notes Treatment Clinical Notes Mar, Acute pain of right shoulder (ICD-10 - M25.511) Take medications as directed. Use caution when operating machinery with muscle relaxer as it may cause drowsiness. Alternating heat and ice to area 3-4 times per day. Rest a lot Follow up with primary care if there is no symptom improvement within the next week, sooner if symptoms worsen or new symptoms occur. [facility] Other 12-19-2021 Evaluation note* Encounter Date Diagnosis Assessment Notes Treatment Notes Treatment Clinical Notes Sep, Contact with and (suspected) exposure [...] instructions given in writting by [facility] document. [facility] Other 12-05-2021 Evaluation note* Encounter Date Diagnosis Assessment Notes Treatment Notes Treatment Clinical Notes Sep, Acute otitis externa of right [...] water inside ear after shower may use [employer] chair on lowest cool setting to blow dry. Follow up with PCP or UC if no improvement in the next 2-3 days. Immediate eval for severe ear pain, severe headache, neck pain/stiffness, pain, erythema, or redness behind the ear, fever, N/V, hearing loss, fever, lethargy, or any other new or concerning symptoms. Patient verbalizes understanding and is agreeable to treatment plan [facility] Other Evaluation noteNo assessment information available [facility] Work Phone: Evaluation note* Diagnosis Onset Date Resolution Status Fracture of ankle, medial malleolus, closed acute [facility] Work Phone: Evaluation note* Diagnosis Essential hypertension (CMS/HCC)- Primary Unspecified essential hypertension Morbid obesity (CMS/HCC) Morbid obesity Acute diffuse otitis externa of both ears Binge eating disorder Essential hypertension (CMS/HCC)- Primary Unspecified essential hypertension Morbid (severe) obesity due to excess calories (E66.01) GERD without esophagitis Esophageal reflux Morbid obesity (CMS/HCC) Morbid obesity Tobacco user Tobacco use disorder Binge eating disorder Vitamin D deficiency QUITA (obstructive sleep apnea) Obstructive sleep apnea (adult) (pediatric) Other chest pain Attention deficit hyperactivity disorder (ADHD), predominantly inattentive type (CMS/HCC) Anxiety and depression (CMS/HCC) Allergic rhinitis, unspecified seasonality, unspecified trigger QUITA (obstructive sleep apnea)- Primary Obstructive sleep apnea (adult) (pediatric) Essential hypertension (CMS/HCC) Unspecified essential hypertension Abnormal stress test Other nonspecific abnormal cardiovascular system function study Attention deficit hyperactivity disorder (ADHD), predominantly inattentive type (CMS/HCC) Binge eating disorder Morbid obesity (CMS/HCC) Morbid obesity Anxiety and depression (CMS/HCC) Elevated glucose- Primary Other abnormal glucose Bilateral lower extremity edema Essential hypertension (CMS/HCC) Unspecified essential hypertension Attention deficit hyperactivity disorder (ADHD), predominantly inattentive type (CMS/HCC) Binge eating disorder Morbid (severe) obesity due to excess calories (CMS/HCC) Body mass index (BMI) 50.0-59.9, adult (CMS/HCC) Attention deficit hyperactivity disorder (ADHD), predominantly inattentive type (CMS/HCC)- Primary Essential hypertension (CMS/HCC) Unspecified essential hypertension Allergic rhinitis, unspecified seasonality, unspecified trigger Bilateral lower extremity edema Anxiety and depression (CMS/HCC) Fibromyalgia Unspecified myalgia and myositis Morbid obesity (CMS/HCC) Morbid obesity Binge eating disorder, unspecified severity URI, acute Acute upper respiratory infections of unspecified site Sprain of deltoid ligament of right ankle, subsequent encounter documented in this encounter [facility]* Diagnosis Essential hypertension (CMS/HCC)- Primary Unspecified essential hypertension Morbid obesity (CMS/HCC) Morbid obesity Acute diffuse otitis externa of both ears Binge eating disorder Essential hypertension (CMS/HCC)- Primary Unspecified essential hypertension Morbid (severe) obesity due to excess calories (E66.01) GERD without esophagitis Esophageal reflux Morbid obesity (CMS/HCC) Morbid obesity Tobacco user Tobacco use disorder Binge eating disorder Vitamin D deficiency QUITA (obstructive sleep apnea) Obstructive sleep apnea (adult) (pediatric) Other chest pain Attention deficit hyperactivity disorder (ADHD), predominantly inattentive type ([facility]/HCC) Anxiety and depression ([facility]) Allergic rhinitis, unspecified seasonality, unspecified trigger QUITA (obstructive sleep apnea)- Primary Obstructive sleep apnea (adult) (pediatric) Essential hypertension (CMS/HCC) Unspecified essential hypertension Abnormal stress test Other nonspecific abnormal cardiovascular system function study Attention deficit hyperactivity disorder (ADHD), predominantly inattentive type (CMS/HCC) Binge eating disorder Morbid obesity (CMS/HCC) Morbid obesity Anxiety and depression (CMS/HCC) Elevated glucose- Primary Other abnormal glucose Bilateral lower extremity edema Essential hypertension (CMS/HCC) Unspecified essential hypertension Attention deficit hyperactivity disorder (ADHD), predominantly inattentive type ([facility]/HCC) Binge eating disorder Morbid (severe) obesity due to excess calories ([facility]/HCC) Body mass index (BMI) 50.0-59.9, adult ([facility]) Attention deficit hyperactivity disorder (ADHD), predominantly inattentive type ([facility]/HCC)- Primary Essential hypertension (CMS/HCC) Unspecified essential hypertension Allergic rhinitis, unspecified seasonality, unspecified trigger Bilateral lower extremity edema Anxiety and depression (CMS/HCC) Fibromyalgia Unspecified myalgia and myositis Morbid obesity (CMS/HCC) Morbid obesity Binge eating disorder, unspecified severity URI, acute Acute upper respiratory infections of unspecified site Vitamin D deficiency documented in this encounter [facility]* Diagnosis QUITA on CPAP Obstructive sleep apnea (adult) (pediatric) documented in this encounter [facility] HealthEvaluation note* Diagnosis Essential hypertension (CMS/HCC)- Primary Unspecified essential hypertension Morbid obesity (CMS/HCC) Morbid obesity Acute diffuse otitis externa of both ears Binge eating disorder Essential hypertension (CMS/HCC)- Primary Unspecified essential hypertension Morbid (severe) obesity due to excess calories (E66.01) GERD without esophagitis Esophageal reflux Morbid obesity (CMS/HCC) Morbid obesity Tobacco user Tobacco use disorder Binge eating disorder Vitamin D deficiency QUITA (obstructive sleep apnea) Obstructive sleep apnea (adult) (pediatric) Other chest pain Attention deficit hyperactivity disorder (ADHD), predominantly inattentive type (CMS/HCC) Anxiety and depression (CMS/HCC) Allergic rhinitis, unspecified seasonality, unspecified trigger QUITA (obstructive sleep apnea)- Primary Obstructive sleep apnea (adult) (pediatric) Essential hypertension (CMS/HCC) Unspecified essential hypertension Abnormal stress test Other nonspecific abnormal cardiovascular system function study Attention deficit hyperactivity disorder (ADHD), predominantly inattentive type (CMS/HCC) Binge eating disorder Morbid obesity (CMS/HCC) Morbid obesity Anxiety and depression (CMS/HCC) Elevated glucose- Primary Other abnormal glucose Bilateral lower extremity edema Essential hypertension (CMS/HCC) Unspecified essential hypertension Attention deficit hyperactivity disorder (ADHD), predominantly inattentive type (CMS/HCC) Binge eating disorder Morbid (severe) obesity due to excess calories (CMS/HCC) Body mass index (BMI) 50.0-59.9, adult (CMS/HCC) Attention deficit hyperactivity disorder (ADHD), predominantly inattentive type (CMS/HCC)- Primary Essential hypertension (CMS/HCC) Unspecified essential hypertension Allergic rhinitis, unspecified seasonality, unspecified trigger Bilateral lower extremity edema Anxiety and depression (CMS/HCC) Fibromyalgia Unspecified myalgia and myositis Morbid obesity (CMS/HCC) Morbid obesity Binge eating disorder, unspecified severity URI, acute Acute upper respiratory infections of unspecified site Vitamin D deficiency documented in this encounter [facility]* Diagnosis Attention deficit hyperactivity disorder (ADHD), predominantly inattentive type (CMS/HCC) documented in this encounter [facility]* Diagnosis Sprain of deltoid ligament of right ankle, initial encounter- Primary Acute right ankle pain documented in this encounter [facility]* Diagnosis Essential hypertension (CMS/HCC)- Primary Unspecified essential hypertension Morbid obesity (CMS/HCC) Morbid obesity Acute diffuse otitis externa of both ears Binge eating disorder Essential hypertension ([facility]/HCC)- Primary Unspecified essential hypertension Morbid (severe) obesity due to excess calories (E66.01) GERD without esophagitis Esophageal reflux Morbid obesity (CMS/HCC) Morbid obesity Tobacco user Tobacco use disorder Binge eating disorder Vitamin D deficiency QUITA (obstructive sleep apnea) Obstructive sleep apnea (adult) (pediatric) Other chest pain Attention deficit hyperactivity disorder (ADHD), predominantly inattentive type (CMS/HCC) Anxiety and depression ([facility]) Allergic rhinitis, unspecified seasonality, unspecified trigger QUITA (obstructive sleep apnea)- Primary Obstructive sleep apnea (adult) (pediatric) Essential hypertension ([facility]/HCC) Unspecified essential hypertension Abnormal stress test Other nonspecific abnormal cardiovascular system function study Attention deficit hyperactivity disorder (ADHD), predominantly inattentive type ([facility]/HCC) Binge eating disorder Morbid obesity ([facility]) Morbid obesity Anxiety and depression ([facility]) Elevated glucose- Primary Other abnormal glucose Bilateral lower extremity edema Essential hypertension ([facility]) Unspecified essential hypertension Attention deficit hyperactivity disorder (ADHD), predominantly inattentive type ([facility]) Binge eating disorder Morbid (severe) obesity due to excess calories ([facility]) Body mass index (BMI) 50.0-59.9, adult ([facility]) Attention deficit hyperactivity disorder (ADHD), predominantly inattentive type ([facility])- Primary Essential hypertension ([facility]) Unspecified essential hypertension Allergic rhinitis, unspecified seasonality, unspecified trigger Bilateral lower extremity edema Anxiety and depression ([facility]) Fibromyalgia Unspecified myalgia and myositis Morbid obesity ([facility]) Morbid obesity Binge eating disorder, unspecified severity URI, acute Acute upper respiratory infections of unspecified site Anxiety and depression ([facility])- Primary Major depressive disorder, single episode, moderate (HCC) ([facility]) Major depressive disorder, single episode, moderate Morbid (severe) obesity due to excess calories ([facility]) Body mass index (BMI) 50.0-59.9, adult ([facility]) QUITA (obstructive sleep apnea) Obstructive sleep apnea (adult) (pediatric) Essential hypertension ([facility]/HCC) Unspecified essential hypertension GERD without esophagitis Esophageal reflux Bilateral lower extremity edema Attention deficit hyperactivity disorder (ADHD), predominantly inattentive type ([facility]/HCC) Binge eating disorder, unspecified severity Allergic rhinitis, unspecified seasonality, unspecified trigger Acute diffuse otitis externa of both ears documented in this encounter [facility] HealthcareEvaluation note* Diagnosis Essential hypertension Unspecified essential hypertension QUITA (obstructive sleep apnea) Obstructive sleep apnea (adult) (pediatric) Anxiety and depression Dysthymic disorder GERD without esophagitis Esophageal reflux Arthritis Arthropathy, unspecified, site unspecified Fibromyalgia Mylagia and myositis, unspecified History of nicotine use Morbid obesity with BMI of 50.0-59.9, adult ([facility]) documented in this encounter [facility]* Diagnosis Essential hypertension (CMS/HCC)- Primary Unspecified essential hypertension Morbid obesity (CMS/HCC) Morbid obesity Acute diffuse otitis externa of both ears Binge eating disorder Essential hypertension (CMS/HCC)- Primary Unspecified essential hypertension Morbid (severe) obesity due to excess calories (E66.01) GERD without esophagitis Esophageal reflux Morbid obesity (CMS/HCC) Morbid obesity Tobacco user Tobacco use disorder Binge eating disorder Vitamin D deficiency QUITA (obstructive sleep apnea) Obstructive sleep apnea (adult) (pediatric) Other chest pain Attention deficit hyperactivity disorder (ADHD), predominantly inattentive type ([facility]/HCC) Anxiety and depression ([facility]) Allergic rhinitis, unspecified seasonality, unspecified trigger QUITA (obstructive sleep apnea)- Primary Obstructive sleep apnea (adult) (pediatric) Essential hypertension (CMS/HCC) Unspecified essential hypertension Abnormal stress test Other nonspecific abnormal cardiovascular system function study Attention deficit hyperactivity disorder (ADHD), predominantly inattentive type (CMS/HCC) Binge eating disorder Morbid obesity (CMS/HCC) Morbid obesity Anxiety and depression (CMS/[facility]) Elevated glucose- Primary Other abnormal glucose Bilateral lower extremity edema Essential hypertension (CMS/HCC) Unspecified essential hypertension Attention deficit hyperactivity disorder (ADHD), predominantly inattentive type ([facility]/HCC) Binge eating disorder Morbid (severe) obesity due to excess calories ([facility]) Body mass index (BMI) 50.0-59.9, adult ([facility]) Attention deficit hyperactivity disorder (ADHD), predominantly inattentive type ([facility]/HCC)- Primary Essential hypertension ([facility]/HCC) Unspecified essential hypertension Allergic rhinitis, unspecified seasonality, unspecified trigger Bilateral lower extremity edema Anxiety and depression (CMS/HCC) Fibromyalgia Unspecified myalgia and myositis Morbid obesity (CMS/HCC) Morbid obesity Binge eating disorder, unspecified severity URI, acute Acute upper respiratory infections of unspecified site Anxiety and depression ([facility]/HCC)- Primary Major depressive disorder, single episode, moderate (HCC) ([facility]/HCC) Major depressive disorder, single episode, moderate Morbid (severe) obesity due to excess calories (CMS/[facility]) Body mass index (BMI) 50.0-59.9, adult ([facility]/HCC) QUITA (obstructive sleep apnea) Obstructive sleep apnea (adult) (pediatric) Essential hypertension (CMS/HCC) Unspecified essential hypertension GERD without esophagitis Esophageal reflux Bilateral lower extremity edema Attention deficit hyperactivity disorder (ADHD), predominantly inattentive type ([facility]/HCC) Binge eating disorder, unspecified severity Allergic rhinitis, unspecified seasonality, unspecified trigger Acute diffuse otitis externa of both ears Anxiety and depression (CMS/HCC) documented in this encounter [facility]* Diagnosis Essential hypertension- Primary Unspecified essential hypertension Morbid obesity ([facility]-HCC) Morbid obesity Acute diffuse otitis externa of both ears Binge eating disorder Essential hypertension- Primary Unspecified essential hypertension Morbid (severe) obesity due to excess calories (E66.01) GERD without esophagitis Esophageal reflux Morbid obesity ([facility]-HCC) Morbid obesity Tobacco user Tobacco use disorder Binge eating disorder Vitamin D deficiency QUITA (obstructive sleep apnea) Obstructive sleep apnea (adult) (pediatric) Other chest pain Attention deficit hyperactivity disorder (ADHD), predominantly inattentive type Anxiety and depression Allergic rhinitis, unspecified seasonality, unspecified trigger QUITA (obstructive sleep apnea)- Primary Obstructive sleep apnea (adult) (pediatric) Essential hypertension Unspecified essential hypertension Abnormal stress test Other nonspecific abnormal cardiovascular system function study Attention deficit hyperactivity disorder (ADHD), predominantly inattentive type Binge eating disorder Morbid obesity ([facility]-HCC) Morbid obesity Anxiety and depression Elevated glucose- Primary Other abnormal glucose Bilateral lower extremity edema Essential hypertension Unspecified essential hypertension Attention deficit hyperactivity disorder (ADHD), predominantly inattentive type Binge eating disorder Morbid (severe) obesity due to excess calories ([facility]-HCC) Body mass index (BMI) 50.0-59.9, adult ([facility]) Attention deficit hyperactivity disorder (ADHD), predominantly inattentive type- Primary Essential hypertension Unspecified essential hypertension Allergic rhinitis, unspecified seasonality, unspecified trigger Bilateral lower extremity edema Anxiety and depression Fibromyalgia Unspecified myalgia and myositis Morbid obesity ([facility]-HCC) Morbid obesity Binge eating disorder, unspecified severity URI, acute Acute upper respiratory infections of unspecified site Anxiety and depression- Primary Major depressive disorder, single episode, moderate (HCC) Major depressive disorder, single episode, moderate Morbid (severe) obesity due to excess calories ([facility]) Body mass index (BMI) 50.0-59.9, adult ([facility]) QUITA (obstructive sleep apnea) Obstructive sleep apnea (adult) (pediatric) Essential hypertension Unspecified essential hypertension GERD without esophagitis Esophageal reflux Bilateral lower extremity edema Attention deficit hyperactivity disorder (ADHD), predominantly inattentive type Binge eating disorder, unspecified severity Allergic rhinitis, unspecified seasonality, unspecified trigger Acute diffuse otitis externa of both ears QUITA (obstructive sleep apnea)- Primary Obstructive sleep apnea (adult) (pediatric) Essential hypertension Unspecified essential hypertension Bilateral lower extremity edema Morbid (severe) obesity due to excess calories (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) Morbid obesity Acute diffuse otitis externa of both ears Binge eating disorder Essential hypertension- Primary Unspecified essential hypertension Morbid (severe) obesity due to excess calories (E66.01) GERD without esophagitis Esophageal reflux Morbid obesity ([facility]) Morbid obesity Tobacco user Tobacco use disorder Binge eating disorder Vitamin D deficiency QUITA (obstructive sleep apnea) Obstructive sleep apnea (adult) (pediatric) Other chest pain Attention deficit hyperactivity disorder (ADHD), predominantly inattentive type Anxiety and depression Allergic rhinitis, unspecified seasonality, unspecified trigger QUITA (obstructive sleep apnea)- Primary Obstructive sleep apnea (adult) (pediatric) Essential hypertension Unspecified essential hypertension Abnormal stress test Other nonspecific abnormal cardiovascular system function study Attention deficit hyperactivity disorder (ADHD), predominantly inattentive type Binge eating disorder Morbid obesity ([facility] [facility] Morbid obesity Anxiety and depression Elevated glucose- Primary Other abnormal glucose Bilateral lower extremity edema Essential hypertension Unspecified essential hypertension Attention deficit hyperactivity disorder (ADHD), predominantly inattentive type Binge eating disorder Morbid (severe) obesity due to excess calories ([facility] Body mass index (BMI) 50.0-59.9, adult ([facility]) Attention deficit hyperactivity disorder (ADHD), predominantly inattentive type- Primary Essential hypertension Unspecified essential hypertension Allergic rhinitis, unspecified seasonality, unspecified trigger Bilateral lower extremity edema Anxiety and depression Fibromyalgia Unspecified myalgia and myositis Morbid obesity ([facility]) Morbid obesity Binge eating disorder, unspecified severity URI, acute Acute upper respiratory infections of unspecified site Anxiety and depression- Primary Major depressive disorder, single episode, moderate (HCC) Major depressive disorder, single episode, moderate Morbid (severe) obesity due to excess calories ([facility]) Body mass index (BMI) 50.0-59.9, adult ([facility]) QUITA (obstructive sleep apnea) Obstructive sleep apnea (adult) (pediatric) Essential hypertension Unspecified essential hypertension GERD without esophagitis Esophageal reflux Bilateral lower extremity edema Attention deficit hyperactivity disorder (ADHD), predominantly inattentive type Binge eating disorder, unspecified severity Allergic rhinitis, unspecified seasonality, unspecified trigger Acute diffuse otitis externa of both ears QUITA (obstructive sleep apnea)- Primary Obstructive sleep apnea (adult) (pediatric) Essential hypertension Unspecified essential hypertension Bilateral lower extremity edema Morbid (severe) obesity due to excess calories ([facility]) Anxiety and depression Allergic rhinitis, unspecified seasonality, unspecified trigger Attention deficit hyperactivity disorder (ADHD), predominantly inattentive type Essential hypertension- Primary Unspecified essential hypertension QUITA (obstructive sleep apnea) Obstructive sleep apnea (adult) (pediatric) Morbid (severe) obesity due to excess calories ([facility]) Attention deficit hyperactivity disorder (ADHD), predominantly inattentive type Anxiety and depression Binge eating disorder, unspecified severity Major depressive disorder, single episode, moderate ([facility]) Major depressive disorder, single episode, moderate Palpitations documented in this encounter [facility] HealthcareEvaluation note* Diagnosis Essential hypertension- Primary Unspecified essential hypertension Morbid obesity ([facility]) Morbid obesity Acute diffuse otitis externa of both ears Binge eating disorder Essential hypertension- Primary Unspecified essential hypertension Morbid (severe) obesity due to excess calories (E66.01) GERD without esophagitis Esophageal reflux Morbid obesity ([facility]) Morbid obesity Tobacco user Tobacco use disorder Binge eating disorder Vitamin D deficiency QUITA (obstructive sleep apnea) Obstructive sleep apnea (adult) (pediatric) Other chest pain Attention deficit hyperactivity disorder (ADHD), predominantly inattentive type Anxiety and depression Allergic rhinitis, unspecified seasonality, unspecified trigger QUITA (obstructive sleep apnea)- Primary Obstructive sleep apnea (adult) (pediatric) Essential hypertension Unspecified essential hypertension Abnormal stress test Other nonspecific abnormal cardiovascular system function study Attention deficit hyperactivity disorder (ADHD), predominantly inattentive type Binge eating disorder Morbid obesity ([facility]) Morbid obesity Anxiety and depression Elevated glucose- Primary Other abnormal glucose Bilateral lower extremity edema Essential hypertension Unspecified essential hypertension Attention deficit hyperactivity disorder (ADHD), predominantly inattentive type Binge eating disorder Morbid (severe) obesity due to excess calories ([facility] Body mass index (BMI) 50.0-59.9, adult ([facility]) Attention deficit hyperactivity disorder (ADHD), predominantly inattentive type- Primary Essential hypertension Unspecified essential hypertension Allergic rhinitis, unspecified seasonality, unspecified trigger Bilateral lower extremity edema Anxiety and depression Fibromyalgia Unspecified myalgia and myositis Morbid obesity ([facility]) Morbid obesity Binge eating disorder, unspecified severity URI, acute Acute upper respiratory infections of unspecified site Anxiety and depression- Primary Major depressive disorder, single episode, moderate (HCC) Major depressive disorder, single episode, moderate Morbid (severe) obesity due to excess calories ([facility]) Body mass index (BMI) 50.0-59.9, adult ([facility]) QUITA (obstructive sleep apnea) Obstructive sleep apnea (adult) (pediatric) Essential hypertension Unspecified essential hypertension GERD without esophagitis Esophageal reflux Bilateral lower extremity edema Attention deficit hyperactivity disorder (ADHD), predominantly inattentive type Binge eating disorder, unspecified severity Allergic rhinitis, unspecified seasonality, unspecified trigger Acute diffuse otitis externa of both ears QUITA (obstructive sleep apnea)- Primary Obstructive sleep apnea (adult) (pediatric) Essential hypertension Unspecified essential hypertension Bilateral lower extremity edema Morbid (severe) obesity due to excess calories ([facility]) Anxiety and depression Allergic rhinitis, unspecified seasonality, unspecified trigger Attention deficit hyperactivity disorder (ADHD), predominantly inattentive type Essential hypertension- Primary Unspecified essential hypertension QUITA (obstructive sleep apnea) Obstructive sleep apnea (adult) (pediatric) Morbid (severe) obesity due to excess calories ([facility]) Attention deficit hyperactivity disorder (ADHD), predominantly inattentive type Anxiety and depression Binge eating disorder, unspecified severity Major depressive disorder, single episode, moderate (HCC) Major depressive disorder, single episode, moderate Palpitations Anxiety and depression documented in this encounter [facility]* Diagnosis Essential hypertension- Primary Unspecified essential hypertension Morbid obesity ([facility]) Morbid obesity Acute diffuse otitis externa of both ears Binge eating disorder Essential hypertension- Primary Unspecified essential hypertension Morbid (severe) obesity due to excess calories (E66.01) GERD without esophagitis Esophageal reflux Morbid obesity ([facility]) Morbid obesity Tobacco user Tobacco use disorder Binge eating disorder Vitamin D deficiency QUITA (obstructive sleep apnea) Obstructive sleep apnea (adult) (pediatric) Other chest pain Attention deficit hyperactivity disorder (ADHD), predominantly inattentive type Anxiety and depression Allergic rhinitis, unspecified seasonality, unspecified trigger QUITA (obstructive sleep apnea)- Primary Obstructive sleep apnea (adult) (pediatric) Essential hypertension Unspecified essential hypertension Abnormal stress test Other nonspecific abnormal cardiovascular system function study Attention deficit hyperactivity disorder (ADHD), predominantly inattentive type Binge eating disorder Morbid obesity ([facility]) Morbid obesity Anxiety and depression Elevated glucose- Primary Other abnormal glucose Bilateral lower extremity edema Essential hypertension Unspecified essential hypertension Attention deficit hyperactivity disorder (ADHD), predominantly inattentive type Binge eating disorder Morbid (severe) obesity due to excess calories ([facility] Body mass index (BMI) 50.0-59.9, adult ([facility]) Attention deficit hyperactivity disorder (ADHD), predominantly inattentive type- Primary Essential hypertension Unspecified essential hypertension Allergic rhinitis, unspecified seasonality, unspecified trigger Bilateral lower extremity edema Anxiety and depression Fibromyalgia Unspecified myalgia and myositis Morbid obesity ([facility]) Morbid obesity Binge eating disorder, unspecified severity URI, acute Acute upper respiratory infections of unspecified site Anxiety and depression- Primary Major depressive disorder, single episode, moderate (HCC) Major depressive disorder, single episode, moderate Morbid (severe) obesity due to excess calories ([facility] Body mass index (BMI) 50.0-59.9, adult ([facility]) QUITA (obstructive sleep apnea) Obstructive sleep apnea (adult) (pediatric) Essential hypertension Unspecified essential hypertension GERD without esophagitis Esophageal reflux Bilateral lower extremity edema Attention deficit hyperactivity disorder (ADHD), predominantly inattentive type Binge eating disorder, unspecified severity Allergic rhinitis, unspecified seasonality, unspecified trigger Acute diffuse otitis externa of both ears QUITA (obstructive sleep apnea)- Primary Obstructive sleep apnea (adult) (pediatric) Essential hypertension Unspecified essential hypertension Bilateral lower extremity edema Morbid (severe) obesity due to excess calories ([facility]) Anxiety and depression Allergic rhinitis, unspecified seasonality, unspecified trigger Attention deficit hyperactivity disorder (ADHD), predominantly inattentive type Essential hypertension- Primary Unspecified essential hypertension QUITA (obstructive sleep apnea) Obstructive sleep apnea (adult) (pediatric) Morbid (severe) obesity due to excess calories ([facility]) Attention deficit hyperactivity disorder (ADHD), predominantly inattentive type Anxiety and depression Binge eating disorder, unspecified severity Major depressive disorder, single episode, moderate (HCC) Major depressive disorder, single episode, moderate Palpitations UTI symptoms- Primary documented in this encounter [facility] Narrative - Reported* Type Description Date Medical History anxiety Medical History bipolar Medical History hypertension Surgical History bunion surgery 9 yrs Surgical History bunion surgery 12 years Surgical History clogged tear duct 2 years Surgical History laparoscopy Surgical History heart catheterization Hospitalization History pneumonia 18 mos Reppler Other History general Narrative - Reported* Type Description Date Medical History anxiety Medical History bipolar Medical History hypertension Medical History hypocalcemia Surgical History bunion surgery 9 yrs Surgical History bunion surgery 12 years Surgical History clogged tear duct 2 years Surgical History laparoscopy Surgical History heart catheterization Hospitalization History pneumonia 18 mos Reppler Other Summary Purpose Family History Relationship Condition Age at Onset Recorded Date/T quang family member Diabetes mellitus Unknown father Heart disease Unknown Hypertension Unknown grandparent Unknown Myocardial infarction Unknown grandparent Myocardial infarction Unknown Unknown grandparent Cerebral aneurysm Unknown Not Specified Unknown Not Specified Hypertension Unknown sister History of malignant neoplasm of cervix U nknown Malignant neoplasm Unknown Relationship Condition Age at Onset Recorded Date/T quang aunt Diabetes mellitus Unknown father Heart disease Unknown Hypertension Unknown grandparent Unknown Myocardial infarction Unknown grandparent Myocardial infarction Unknown Unknown grandparent Cerebral aneurysm Unknown mother Unknown mother Hypertension Unknown sister History of malignant neoplasm of cervix U nknown Malignant neoplasm Unknown Advance Directives Documents on File Type Date Recorded Patient Physician Relations Specialist Expl anation Advance Directives and Living Will Power of [place] Documents on File Type Date Recorded Patient Physician Relations Specialist Expl anation ACP-Advance Directive ACP-Power of [place] Documents on File Type Date Recorded Patient Physician Relations Specialist Expl anation ACP-Advance Directive ACP-Power of [place] Advance Directive Response Recorded Date/ Time Advance Directives No March 01 4 11:29am Assessments Diagnosis Essential hypertension Unspecified essential hypertension QUITA (obstructive sleep apnea) Obstructive sleep apnea (adult) (pediatric) Arthritis Arthropathy, unspecified, site unspecified Anxiety and depression Dysthymic disorder Gastroesophageal reflux disease without esophagitis Esophageal reflux Obesity, Class III, BMI 40-49.9 (morbid obesity) ([facility]) Morbid obesity Fibromyalgia Mylagia and myositis, unspecified Obstructive sleep apnea Obstructive sleep apnea (adult) (pediatric) Morbid obesity with BMI of 45.0-49.9, adult ([facility]) Diagnosis Current nicotine use Essential hypertension Unspecified [...] questions, PLEASE call your doctor or the [facility] center at [...] by your surgeon documented in this encounter Chief Complaint and Reason for Visit Chief Complaint Left ankle injury Reason for Visit Fracture of ankle, m edial malleolus, closed Reason for Referral Specialty Diagnoses / Procedures Referred By Barbara t Referred To Contact Diagnoses Attention deficit hyperactivity disorder (ADHD), predominantly inattentive type (CMS/HCC) Tamiko Hernandez, LOYD [address] [place] [address] Referral ID Status Reason Start Date Expiration Date V isits Requested Visits Authorized [id number] Pending Review 06/08/2024 12/05/2024 1 1 Specialty Diagnoses / Procedures Referred By Barbara t Referred To Contact Sleep Center Diagnoses QUITA on CPAP Procedures Sleep Study with PAP Titration Fortunato Thorpe DO [address] [facility] [address] [place] [address] [facility] [address] [place] [address] Referral ID Status Reason Start Date Expiration Date Visits Re quested Visits Authorized [id number] Closed 12/31/2023 12/30/2024 1 1 Additional Source Comments INFORMATION SOURCE (unrecogn ized section and content) DATE CREATED AUTHOR 05/05/2018 [facility] DATE CREATED AUTHOR AUTHOR'S ORGANIZ ATION 12/23/2018 [facility] DATE CREATED AUTHOR AUTHOR'S ORGANIZ ATION 04/29/2021 [facility] DATE CREATED AUTHOR AUTHOR'S ORGANIZ ATION 01/25/2023 [facility] DATE CREATED AUTHOR AUTHOR'S ORGANIZ ATION 02/09/2024 [facility] DATE CREATED AUTHOR AUTHOR'S ORGANIZ ATION 07/12/2024 [facility] DATE CREATED AUTHOR AUTHOR'S ORGANIZ ATION 08/20/2024 [facility] DATE CREATED AUTHOR AUTHOR'S ORGANIZ ATION 09/05/2024 [facility] DATE CREATED AUTHOR AUTHOR'S ORGANIZ ATION 04/04/2025 [facility] EP[facility] DATE CREATED AUTHOR AUTHOR'S ORGANIZ ATION 05/24/2025 [facility] Reason for Visit (unrecogniz ed section and content) Status Reason Specialty Diagnoses / Procedures Re ferred By Contact Referred To Contact Diagnoses GERD (gastroesophageal reflux disease) Obesity GERD, OBESITY Procedures NV ESOPHAGOGASTRODUODENOSCOPY TRANSORAL DIAGNOSTIC EGD ESOPHAGOGASTRODUODENOSCOPY- GI UNIT SCHEDULED Fortunato Thorpe DO [address] [facility] [address] [place] [address] [facility] Reason Comments Med Refill Specialty Diagnoses / Procedures Referred By Contac t Referred To Contact Sleep Center Diagnoses QUITA on CPAP Procedures Sleep Study with PAP Titration Fortunato Thorpe DO [address] [facility] [address] [place] [address] [facility] [address] [place] [address] Referral ID Status Reason Start Date Expiration Date Visits Re quested Visits Authorized [id number] Closed 12/31/2023 12/30/2024 1 1 Reason Comments Pain Reason Comments ADHD Referral ID Status Reason Start Date Expiration Date V isits Requested Visits Authorized [id number] Authorized 12/31/2023 12/30/2024 1 1 Reason Comments Med Refill Reason Comments Anxiety Ordered Prescriptions (unrec ognized section and content) Prescription Sig Dispensed Refills Start Date End Da te pantoprazole (PROTONIX) 40 MG tablet Take 1 tablet by mouth every morning (before breakfast) 90 tablet 1 09/28/2020 Care Teams (unrecognized sec tion and content) Team Status: Active Member Role Status Dates Marcelo Weaver MD Primary Care Provider Active Team Status: Inactive Member Role Status Dates Marcelo Weaver MD Primary Care Provider Active Start: February 29, 2024 End: February 29, 2024 Will Mendoza Attending Provider Active Start: Amelia brown 2023 End: February 29, 2024 Team Status: Inactive Member Role Status Dates Marcelo Weaver MD Primary Care Provider Active Start: March 30, 2024 End: March 30, 2024 Will Mendoza Attending Provider Active Start: Anastasiya bragg 2023 End: March 30, 2024 Team Status: Active Member Role Status Dates Tamiko Hernandez Primary Care Provider Active Team Status: Inactive Member Role Status Dates Jessy Jorgensen APRN Attending Provider Active S tart: July 04, 2024 End: July 04, 2024 Tamiko Hernandez Primary Care Provider Active Sta rt: July 04, 2024 End: July 04, 2024 Team Status: Active Member Role Status Dates Tamiko Hernandez Primary Care Provider Active Sta rt: July 04, 2024 Jessy Jorgensen APRN Attending Provider Active S tart: July 04, 2024 Team Status: Inactive Member Role Status Dates Tamiko Hernandez Primary Care Provider Active Sta rt: July 04, 2024 End: July 04, 2024 Jessy Jorgensen APRN Attending Provider Active S tart: July 04, 2024 End: July 04, 2024 Reeling And Tubing Machine Operator Relationship Specialty Start Date End Date Timothy Tucker MD [address] [place] [phone] PCP - General Family Medicine 12/03/23 Timothy Tucker MD [address] [place] [phone] Referring Physician Family Medicine 12/03/23 Re[employer] And Tub[employer] Machine Operator Relationship Specialty Start Date End Date Timothy Tucker MD [address] [place] [phone] PCP - General Family Medicine 12/03/23 Timothy Tucker MD [address] [place] [address] Referring Physician Family Medicine 12/03/23 Reeling And Tubing Machine Operator Relationship Specialty Start Date End Date Unallocated, Jean Claude Wu MD [address] [facility] [place] [address] PCP - General Family Medicine 07/26/24 Tamiko Hernandez NP [address] [place] [address] Nurse Practitioner Family Medicine 07/26/24 [employer] Tub[employer] Machine Operator Relationship Specialty Start Date End Date Tamiko Hernandez, TANK STAVE ASSEMBLER - GENETIC TECHNOLOGIST [address] [place] [address] PCP - General Nurse Practitioner 12/31/23 Re[employer] And Tub[employer] Machine Operator Relationship Specialty Start Date End Date Timothy Tucker MD [address] [place] [address] PCP - General Family Medicine 08/11/24 Tamiko Hernandez NP [address] [place] [address] Nurse Practitioner Family Medicine 07/26/24 Reeling And Tubing Machine Operator Relationship Specialty Start Date End Date Timothy Tucker MD [address] [place] [address] PCP - General Family Medicine 12/03/23 Timothy Tucker MD [address] [place] [address] Referring Physician Family Medicine 12/03/23 Reeling And Tubing Machine Operator Relationship Specialty Start Date End Date Timothy Tucker MD [address] [place] [address] PCP - General Family Medicine 12/03/23 Timothy Tucker MD [address] [place] [address] Referring Physician Family Medicine 12/03/23 Reeling And Tubing Machine Operator Relationship Specialty Start Date End Date Timothy Tucker MD [address] [place] [phone] PCP - General Family Medicine 12/03/23 Timothy Tucker MD [address] [place] [address] Referring Physician Family Medicine 12/03/23 Reeling And Tubing Machine Operator Relationship Specialty Start Date End Date Timothy Tucker MD [address] [place] [address] PCP - General Family Medicine 08/11/24 Tamiko Hernandez NP [address] [place] [address] Nurse Practitioner Family Medicine 07/26/24 Reeling And Tubing Machine Operator Relationship Specialty Start Date End Date Timothy Tucker MD [address] [place] [address] PCP - General Family Medicine 08/11/24 Tamiko Hernandez NP [address] [place] [address] Nurse Practitioner Family Medicine 07/26/24 Reeling And Tubing Machine Operator Relationship Specialty Start Date End Date Tamiko Hernandez, ADINA - GENETIC TECHNOLOGIST [address] [place] [address] PCP - General Nurse Practitioner 12/31/23 Reeling And Tubing Machine Operator Relationship Specialty Start Date End Date Tamiko Hernandez APRN - GENETIC TECHNOLOGIST [address] [place] [address] PCP - General Nurse Practitioner 12/31/23 Reeling And Tubing Machine Operator Relationship Specialty Start Date End Date Timothy Tucker MD [address] [place] [address] PCP - General Family [facility] 08/11/24 Tamiko Hernandez NP [address] [place] [address] PCP [facility] 10/12/24 Tamiko Hernandez NP [address] [place] [address] Nurse Practitioner Family Medicine 07/26/24 Reeling And Tubing Machine Operator Relationship Specialty Start Date End Date Timothy Tucker MD [address] [place] [address] PCP - General Family [facility] 08/11/24 Tamiko Hernandez NP [address] [place] [address] PCP [facility] 10/12/24 Tamiko Hernandez NP [address] [place] [address] Nurse Practitioner Family Medicine 07/26/24 Reeling And Tubing Machine Operator Relationship Specialty Start Date End Date Timothy Tucker MD [address] [place] [address] PCP - General Family [facility] 08/11/24 Tamiko Hernandez NP [address] [place] [address] PCP - [facility] 10/12/24 Tamiko Hernandez NP [address] [place] [address] Nurse Practitioner Family [facility] 07/26/24 Reeling And Tubing Machine Operator Relationship Specialty Start Date End Date Timothy Tucker MD [address] [place] [phone] PCP - [facility] 08/11/24 Tamiko Hernandez NP [address] [place] [address] PCP - [facility] 10/12/24 Tamiko Hernandez NP [address] [place] [id number] Nurse Practitioner Family [facility] 07/26/24 [employer] Relationship Specialty Start Date End Date Timothy Tucker MD [address] [place] [id number] PCP - General Family [facility] 08/11/24 Tamiko Hernandez NP [address] [place] [id number] PCP [facility] 10/12/24 Tamiko Hernandez NP [address] [place] [id number] Nurse Practitioner Family Medicine 07/26/24 [employer] Relationship Specialty Start Date End Date Timothy Tucker MD [address] [place] [id number] PCP - General Family [facility] 08/11/24 Tamiko Hernandez NP [address] [place] [id number] [facility] 10/12/24 Tamiko Hernandez NP [address] [place] [id number] Nurse Practitioner Family [facility] 07/26/24 [employer] Operator Relationship Specialty Start Date End Date Timothy Tucker MD [address] [place] [id number] PCP - [facility] 08/11/24 Tamiko Hernandez NP [address] [place] [id number] [facility] 10/12/24 Tamiko Hernandez NP [address] [place] [id number] Nurse Practitioner Family Medicine 07/26/24 Goals (unrecognized section and content) Goals may [...] BE BASED ON THE PRIMARY CLINICAL RECORDS. [facility] [employer] [facility] provides no warranty or guarantee of the accuracy or completeness of information in this document.
[2025-06-20 11:10] LABS: Cholesterol 180 mg/dL (<=200); HDL Cholesterol 43 mg/dL (40-60); Triglycerides 170 mg/dL (<=150); VLDL CHOLESTEROL 34.0 mg/dL
[2025-06-20 13:31] LABS: Alanine Aminotransferase 35 U/L (14-59); Aspartate Amino Transferase 18 U/L (15-37)
== END 2025-06-20 08:48 | disposition home or self-care (01) ==
LOC: LAB 08:48
PROVIDERS: PCP Nurse Practitioner; Visit Provider Internal Medicine Cardiovascular Disease
DX: E78.5 Hyperlipidemia, unspecified (principal); E78.2 Mixed hyperlipidemia
CPT/HCPCS: 36415; 80061; 84450; 84460